=== PATIENT | female | born 1945 | race Caucasian/White ===

== ENCOUNTER → 2018-05-12 09:37 | Outpatient (CLI) | payer MEDICARE, SELFPAY ==
[2016-10-30 08:32] VITALS: BMI 24.7
[2018-05-12 10:24] LABS: Hematocrit 38.7 % (37-47); Hemoglobin 12.6 g/dl (12.0-15.0); Mean Corp Hgb Conc 32.6 g/gl (32-36); Mean Corpuscular Hgb 28.6 pg (27.0-32.0); Mean Corpuscular Volume 87.8 fL (81-99); Mean Platelet Vol. 9.6 fl (6.2-12.0); Platelet Count 228 K/mm3 (150-450); RBC Distribution Width CV 12.9 % (11.6-14.6); RBC Distribution Width SD 41.5 fl (35.1-43.9); Red Blood Count 4.41 M/mm3 (4.2-5.4); White Blood Count 4.9 K/mm3 (4.4-11.0)
[2018-05-12 10:25] LABS: Scan Indicated on CBC? Y/N NO
[2018-05-12 11:03] LABS: ALB/GLOB Ratio 1.1 RATIO (0.9-2.4); AST(SGOT) 22 U/L (15-37); Alanine Aminotransfer ALT/SGPT 19 U/L (13-56); Albumin, Serum 3.7 g/dL (3.2-5.0); Alkaline Phosphatase 64 U/L (45-117); Anion Gap 7 (5-15); BUN 20 mg/dL (7-18); BUN/Creat Ratio 29.1 RATIO (10-20); Calcium,Total 9.1 mg/dL (8.5-10.1); Chloride 101 mmol/L (98-107); Cholesterol 155 mg/dL (200); Creatinine, Serum 0.69 mg/dL (0.55-1.02); EST Glomerular Filtration Rate 89 mL/min (>60); Est Glom Filt Rate - Afr Amer 108 mL/min (>60); Globulin 3.5 g/dL (2.2-4.2); Glucose 90 mg/dL (74-106); High Density Lipoprotein 68 mg/dL; Potassium 3.7 mmol/L (3.5-5.1); Protein, Total 7.2 g/dL (6.4-8.2); Sodium Level 142 mmol/L (136-145); Thyroid Stim Hormone (TSH) 2.06 uIU/mL (0.358-3.74); Triglycerides 110 mg/dL; Very Low Density Lipoprotein 22 mg/dL (5-40)
[2018-05-12 12:22] LABS: Vitamin D,25 Hydroxy 45.6 ng/mL (29.95-100.01)
== END ==
PROVIDERS: Family Provider Internal Medicine; PCP Internal Medicine; Referring Provider Internal Medicine; Visit Provider Internal Medicine
DX: I10 Essential (primary) hypertension (principal); E78.00 Pure hypercholesterolemia, unspecified; E55.9 Vitamin D deficiency, unspecified; M15.9 Polyosteoarthritis, unspecified; K21.9 Gastro-esophageal reflux disease without esophagitis
CPT/HCPCS: 36415; 80053; 80061; 82306; 84443; 85027

== ENCOUNTER → 2019-05-14 | Outpatient (CLI) | payer MEDICARE, SELFPAY ==
[2016-10-30 08:32] VITALS: BMI 24.7
[2019-05-14 10:21] LABS: Hematocrit 39.2 % (37-47); Hemoglobin 12.8 g/dL (12.0-15.0); Mean Corp Hgb Conc 32.7 g/dL (32-36); Mean Corpuscular Hgb 27.9 pg (27.0-32.0); Mean Corpuscular Volume 85.6 fL (81-99); Mean Platelet Vol. 9.9 fl (6.2-12.0); Platelet Count 230 K/mm3 (150-450); RBC Distribution Width CV 12.7 % (11.6-14.6); RBC Distribution Width SD 39.3 fl (35.1-43.9); Red Blood Count 4.58 M/mm3 (4.2-5.4); White Blood Count 6.1 K/mm3 (4.4-11.0)
[2019-05-14 10:47] LABS: Vitamin D,25 Hydroxy 50.8 ng/mL
[2019-05-14 11:01] LABS: ALB/GLOB Ratio 1.1 RATIO (0.9-2.4); AST(SGOT) 26 U/L (15-37); Alanine Aminotransfer ALT/SGPT 22 U/L (13-56); Albumin, Serum 3.7 g/dL (3.2-5.0); Alkaline Phosphatase 65 U/L (45-117); Anion Gap 4 (5-15); BUN 24 mg/dL (7-18); BUN/Creat Ratio 34.7 RATIO (10-20); Calcium,Total 9.1 mg/dL (8.5-10.1); Chloride 104 mmol/L (98-107); Cholesterol 166 mg/dL (200); Creatinine, Serum 0.69 mg/dL (0.55-1.02); EST Glomerular Filtration Rate 88 mL/min (>60); Est Glom Filt Rate - Afr Amer 107 mL/min (>60); Globulin 3.3 g/dL (2.2-4.2); Glucose 89 mg/dL (74-106); High Density Lipoprotein 65 mg/dL; Potassium 3.4 mmol/L (3.5-5.1); Sodium Level 141 mmol/L (136-145); Thyroid Stim Hormone (TSH) 1.75 uIU/mL (0.358-3.74); Triglycerides 126 mg/dL; Very Low Density Lipoprotein 25 mg/dL (5-40)
== END | disposition home or self-care (01) ==
PROVIDERS: PCP Internal Medicine; Referring Provider Internal Medicine; Visit Provider Internal Medicine
DX: Z00.00 Encounter for general adult medical examination without abnormal findings (principal); I10 Essential (primary) hypertension; E78.00 Pure hypercholesterolemia, unspecified; F32.9 Major depressive disorder, single episode, unspecified; M15.9 Polyosteoarthritis, unspecified; K21.9 Gastro-esophageal reflux disease without esophagitis; E55.9 Vitamin D deficiency, unspecified; E78.5 Hyperlipidemia, unspecified
CPT/HCPCS: 36415; 80053; 80061; 82306; 84443; 85027

== ENCOUNTER 2019-12-05 20:01 | Emergency (ER) | payer MEDICARE, SELFPAY ==
[2019-12-05 20:02] VITALS: BP 127/66; PULSE 58; RESP 15; TEMP 36.8; O2SAT 98; BMI 23.6
--- NOTE | 2019-12-05 20:35 | RAD_ITS ---
STUDY: X-RAY - LEFT ANKLE REASON FOR EXAM: Female, 74 years old. Rolled ankle today, pain in heel and lateral swelling. Pain after trauma TECHNIQUE: 3 view(s) of the ankle. COMPARISON: None. FINDINGS: Normal visualized distal tibia and fibula. Normal medial and lateral malleoli. Normal tibiotalar articulation and ankle mortise. Normal visualized talus and calcaneus. Mineralization is diffusely decreased. The visualized subtalar, talonavicular, calcaneocuboid and tarsal articulations are normal. There is lateral soft tissue swelling. RAD/Ankle min 3 Views IMPRESSION: No osseous trauma. There is lateral soft tissue swelling. Electronically Signed: Olayinka York, at 21:10 EDT Tel , Service support ,
--- NOTE | 2019-12-05 21:26 | ED.VIS.GEN ---
History of Present Illness Chief Complaint: Lower Extremity Injury Informant: Patient Onset: Today Current Severity: Mild Maximum Severity: Moderate Narrative: Patient present secondary to left ankle injury. She states she went to stand up from a seated position and her foot had fallen asleep. She rolled her left ankle. She has been able to weight-bear. She denies any other injury. - Past Medical History (1) GERD (gastroesophageal reflux disease) Status: Chronic (2) HLD (hyperlipidemia) Status: Chronic (3) HTN (hypertension) Status: Chronic Past Medical History - Allergies and Home Meds Allergies/Adverse Reactions: Allergies No Known Allergies Allergy (Verified 12/05/19 20:02) Primary Care Physician: Saima Hernandez MD [Primary Care Provider] - Prior records reviewed: Yes Surgical History: hysterectomy - For endometriosis She still has both ovaries to her knowledge. She also had an incidental appendectomy at the time of her hysterectomy. Smoking Status: Never smoker - Family History Maternal Family History: Reports: - - Her father at the age of 91 with old age. Paternal Family History: Reports: - - Her father in his 90s of complications from esophageal cancer. Sibling Family History: Reports: Diabetes, High Cholesterol, Hypertension, - Review of Systems General: Denies: Chills, Fever Eyes: Denies: Visual changes - bilaterally ENT: Denies: Bilateral ear pain Cardiovascular: Denies: Chest pain Respiratory: Denies: Dyspnea Gastrointestinal: Denies: Abdominal pain, Nausea, Vomiting, Diarrhea Musculoskeletal: Reports: Swelling, Extremity Pain Skin: Denies: Rash Neurological: Denies: Headache Hematologic: Denies: Easy bruising, Easy bleeding Allergy: Denies: Uticaria Physical Exam Vital Signs/Narrative: Vital Signs Temp Pulse Resp BP Pulse Ox 12/05/19 20:02 98.3 F 58 L 15 127/66 H 98 Inital Vital Signs reviewed: Yes General: Well nourished, Well developed Head: Normocephalic ENT: Moist mucous membranes Neck: Supple Cardiovascular: Regular rate, Regular rhythm Respiratory: No distress, CTA bilaterally Abdomen: Soft, Nontender Extremities: - - Edema to the lateral malleolus of the left ankle. Mild tenderness. No tenderness of the foot itself. No tenderness of the proximal fibula, knee, or hip. Neurological: Alert, Oriented x3 Psychological: Normal affect Diagnostic/Tx/Re-eval Impressions Ankle X-Ray 12/05/19 20:35 IMPRESSION: No osseous trauma. There is lateral soft tissue swelling. Electronically Signed: Olayinka York, at 21:10 EDT Tel , Service support , 12/05/19 20:35 Ankle min 3 Views [RAD] Stat - Medical Decision Making X-rays reveal no evidence of acute bony injury. She be placed in an air stirrup splint. She was offered crutches but believes she does not need these. She will follow-up with PCP as needed. ED Disposition - Plan for ED Patient: Disposition: Home or Assisted Living Diagnosis: Left ankle sprain Instructions: ED Sprain Ankle W X Ray Referrals: Saima Hernandez MD [Primary Care Provider] - As Needed
== END 2019-12-05 21:48 | disposition home or self-care (01) ==
PROVIDERS: Emergency Provider Emergency Medicine; PCP Internal Medicine
DX: S93.402A Sprain of unspecified ligament of left ankle, initial encounter (principal); K21.9 Gastro-esophageal reflux disease without esophagitis; E78.5 Hyperlipidemia, unspecified; I10 Essential (primary) hypertension; Z79.899 Other long term (current) drug therapy; X50.1XXA Overexertion from prolonged static or awkward postures, initial encounter; Y93.89 Activity, other specified; Y92.009 Unspecified place in unspecified non-institutional (private) residence as the place of occurrence of the external cause; Y99.8 Other external cause status
CPT/HCPCS: 73610; 99283

== ENCOUNTER → 2020-05-02 09:00 | Outpatient (CLI) | payer MEDICARE, SELFPAY ==
[2020-05-02 09:27] LABS: Hemoglobin 12.7 g/dL (12.0-15.0); Mean Corp Hgb Conc 32.6 g/dL (32-36); Mean Corpuscular Hgb 28.3 pg (27.0-32.0); Mean Corpuscular Volume 86.9 fL (81-99); Platelet Count 236 K/mm3 (150-450); RBC Distribution Width CV 12.6 % (11.6-14.6); RBC Distribution Width SD 40.1 fl (35.1-43.9); Red Blood Count 4.49 M/mm3 (4.2-5.4); White Blood Count 5.6 K/mm3 (4.4-11.0)
[2020-05-02 09:58] LABS: Vitamin D,25 Hydroxy 47.8 ng/mL
[2020-05-02 10:11] LABS: ALB/GLOB Ratio 1.1 RATIO (0.9-2.4); AST(SGOT) 23 U/L (15-37); Alanine Aminotransfer ALT/SGPT 19 U/L (13-56); Albumin, Serum 3.5 g/dL (3.2-5.0); Alkaline Phosphatase 67 U/L (45-117); Anion Gap 3 (5-15); BUN 22 mg/dL (7-18); Chloride 103 mmol/L (98-107); Cholesterol 166 mg/dL (200); Creatinine, Serum 0.81 mg/dL (0.55-1.02); EST Glomerular Filtration Rate 73 mL/min (>60); Est Glom Filt Rate - Afr Amer 88 mL/min (>60); Globulin 3.3 g/dL (2.2-4.2); Glucose 93 mg/dL (74-106); High Density Lipoprotein 74 mg/dL; Potassium 3.8 mmol/L (3.5-5.1); Protein, Total 6.8 g/dL (6.4-8.2); Sodium Level 140 mmol/L (136-145); Thyroid Stim Hormone (TSH) 2.06 uIU/mL (0.358-3.74); Triglycerides 105 mg/dL; Very Low Density Lipoprotein 21 mg/dL (5-40)
== END ==
PROVIDERS: PCP Internal Medicine; Referring Provider Internal Medicine; Visit Provider Internal Medicine
DX: Z00.00 Encounter for general adult medical examination without abnormal findings (principal); I10 Essential (primary) hypertension; E78.00 Pure hypercholesterolemia, unspecified; M15.9 Polyosteoarthritis, unspecified; K21.9 Gastro-esophageal reflux disease without esophagitis; E55.9 Vitamin D deficiency, unspecified; E78.5 Hyperlipidemia, unspecified
CPT/HCPCS: 36415; 80053; 80061; 82306; 84443; 85027

== ENCOUNTER 2020-12-22 11:00 | Emergency (ER) | payer MEDICARE, SELFPAY ==
[2020-12-22 11:01] VITALS: BP 155/82; PULSE 69; RESP 16; TEMP 35.9; O2SAT 97; BMI 24.3
--- NOTE | 2020-12-22 11:50 | RAD_ITS ---
STUDY: X-RAY - UNILATERAL RIBS ( RIGHT ) WITH CHEST REASON FOR EXAM: Female, 75 years old. Trauma TECHNIQUE - RIBS: 4 view(s) of the ribs. TECHNIQUE - CHEST: Single PA view the chest. COMPARISON: None. FINDINGS: Cardiac silhouette unremarkable. Pulmonary vascularity unremarkable. Aorta calcified. No focal patchy airspace opacities. No pleural effusions. COPD. Atelectasis/scarring. Upper abdomen unremarkable. Acute minimally displaced right seventh rib fracture. No pneumothorax. RAD/Ribs Uni Min 3V w/PA Chest IMPRESSION: Acute minimally displaced right seventh rib fracture No acute cardiopulmonary findings COPD with atelectasis/scarring Electronically Signed: Issac Guaman DO at 12:04 EDT Tel , Service support ,
--- NOTE | 2020-12-22 12:45 | EX.ED.GENINJ ---
HPI History of Present Illness Chief Complaint: Other, Pain/Inj Informant: patient Onset/Context/Timing Onset: Days (2 ago) Mechanism/Context: Fall Quality of Pain: Sharp Location: Right chest Worsened by: Movement Relieved by: Rest Associated Symptoms Associated Symptoms: Negative for Parasthesias, Weakness, Inability to ambulate and Loss of consciousness Narrative Narrative: Patient presents with injury to her right ribs that occurred 2 days ago. Patient states she fell against a metal railing. Patient states she was going up some steps when she slipped. Patient denies any head injury or loss of consciousness. Patient states her pain is sharp. Patient states her pain is worse with any movement. Patient states her pain is better with rest. Patient denies any paresthesias or weakness. Patient denies any shortness of breath. PFSH PFSH Home Medications amlodipine 10 mg PO DAILY 10/30/16 [History Last Taken Unknown] hydrochlorothiazide 50 mg PO DAILY 10/30/16 [History Last Taken Unknown] lisinopril 40 mg PO DAILY 10/30/16 [History Last Taken Unknown] meloxicam 15 mg PO DAILY 10/30/16 [History Last Taken Unknown] paroxetine HCl 20 mg PO DAILY 10/30/16 [History Last Taken Unknown] simvastatin 20 mg PO DAILY 10/30/16 [History Last Taken Unknown] trazodone 100 mg PO QHS 10/30/16 [History Last Taken Unknown] Carvedilol 12/05/19 [History Last Taken Unknown] Vitamin E (Dl,Tocopheryl Acet) [Vitamin E] 400 unit PO DAILY 12/05/19 [History Last Taken Unknown] ascorbic acid (vitamin C) 500 mg PO DAILY@0800 12/05/19 [History Last Taken Unknown] beta carotene 10,000 unit PO DAILY 12/05/19 [History Last Taken Unknown] cholecalciferol (vitamin D3) 50 mcg PO DAILY 12/05/19 [History Last Taken Unknown] omeprazole 40 mg PO DAILY 12/05/19 [History Last Taken Unknown] hydrocodone-acetaminophen 1 tab PO Q6H PRN PRN 3 Days #10 tablet 12/22/20 [Rx Last Taken Unknown] Allergy/AdvReac Type Severity Reaction Status Date / Time No Known Allergies Allergy Verified 12/22/20 11:04 Social History Smoking Status: Never smoker ROS ROS ED Constitutional Constitutional ED: Denies chills or fever(s) Eyes Eyes: Denies blurry vision or change in vision ENT ENT ED: Denies rhinorrhea or sore throat Cardiovascular Cardiovascular: Denies chest pain or palpitations Respiratory/Chest Respiratory/Chest: Denies cough or dyspnea Gastrointestinal Gastrointestinal: Denies nausea or vomiting Genitourinary Genitourinary ED: Denies dysuria or hematuria Musculoskeletal Musculoskeletal: Denies back pain or neck pain Integumentary Denies abscess or rash Neurologic Neurologic: Denies headache(s) or weakness Allergic/Immunologic Allergic/Immunologic ED: Denies mouth swelling or urticaria EXAM Physical Exam Const Vital Signs: 12/22/20 11:01 12/22/20 12:00 Temperature 96.6 F L Temperature Source Temporal Pulse Rate 69 Respiratory Rate 16 Respiratory Effort Normal Non-Labored Respiratory Pattern Normal Blood Pressure 155/82 H Blood Pressure Mean 106 Pulse Ox 97 Oxygen Delivery Method Room Air Positive well nourished and well developed General Appearance ED: well developed HEENT atraumatic Neck full ROM General: Negative for tenderness Chest Wall Chest Narrative: There is tenderness over the posterior lateral aspect of the right lower ribs. There is no edema or ecchymosis. There is no bony crepitance or step-off. Resp normal respiratory effort and clear to auscultation bilaterally Cardio regular rhythm Rate: regular rate GI non-tender Palpation: soft Neuro oriented x3, CN's II-XII intact bilaterally, moves all extremities, no focal motor deficits and no sensory deficits noted Sensorium / Orientation: alert MDM MDM MDM Narrative Medical decision making narrative: X-rays of the right ribs were obtained. There are 5 views. On my interpretation, there is a nondisplaced fracture of the seventh rib. There is no pneumothorax. There is no acute cardiopulmonary process. Radiologist also interpreted the x-ray and agrees. Patient was advised of her findings. Patient was instructed to take 10-15 deep breaths every hour while awake to prevent atelectasis and pneumonia. Patient was given a prescription for [place]. Patient was instructed to follow-up with her primary care physician in 5 to 7 days. Patient understood and was agreeable with the plan. All questions were answered. Radiography Diagnostic Testing: Clinical Impression(s) from Imaging Studies Ribs w/Chest X-Ray 12/22/20 11:50 IMPRESSION: Acute minimally displaced right seventh rib fracture No acute cardiopulmonary findings COPD with atelectasis/scarring Electronically Signed: Issac DO Rowena at 12:04 EDT Tel , Service support , Discharge Plan Triage Chief Complaint: Other, Pain/Inj ED Provider: Issac Faulkner Dx/Rx/DC Orders Clinical Impression: Right rib fracture Instructions: ED Rib Fracture Prescriptions: New hydrocodone-acetaminophen [hydrocodone-acetaminophen] 1 TABLET tablet 1 tab PO Q6H PRN PRN (Reason: Pain) 3 Days Qty: 10 RF: 0 No Action trazodone 50 MG tablet 100 mg PO QHS RF: 0 meloxicam 15 MG tablet 15 mg PO DAILY RF: 0 lisinopril 20 MG tablet 40 mg PO DAILY RF: 0 amlodipine 10 MG tablet 10 mg PO DAILY RF: 0 paroxetine HCl 20 MG tablet 20 mg PO DAILY RF: 0 simvastatin 20 MG tablet 20 mg PO DAILY RF: 0 hydrochlorothiazide 25 MG tablet 50 mg PO DAILY RF: 0 omeprazole 40 MG capsule,delayed release(DR/EC) 40 mg PO DAILY RF: 0 ascorbic acid (vitamin C) 500 MG tablet 500 mg PO DAILY@0800 RF: 0 beta carotene 10,000 UNIT capsule 10,000 unit PO DAILY RF: 0 cholecalciferol (vitamin D3) 50 MCG capsule 50 mcg PO DAILY RF: 0 Carvedilol RF: 0 Vitamin E (Dl,Tocopheryl Acet) [Vitamin E] 400 UNIT capsule 400 unit PO DAILY RF: 0 Primary Care Provider: Saima Hernandez Referrals: Saima Hernandez MD [Primary Care Provider] -
[2020-12-22 14:24] VITALS: BP 139/84; PULSE 76; RESP 15; O2SAT 97
== END 2020-12-22 14:25 | disposition home or self-care (01) ==
LOC: ED 12:08
PROVIDERS: Emergency Provider Emergency Medicine; PCP Internal Medicine
DX: S22.31XA Fracture of one rib, right side, initial encounter for closed fracture (principal); W01.198A Fall on same level from slipping, tripping and stumbling with subsequent striking against other object, initial encounter; Y93.01 Activity, walking, marching and hiking; Y92.89 Other specified places as the place of occurrence of the external cause; Y99.8 Other external cause status
CPT/HCPCS: 71101; 99282

== ENCOUNTER 2021-05-15 08:54 | Outpatient (CLI) | payer MEDICARE, SELFPAY ==
[2021-05-15 09:52] LABS: Hematocrit 38.1 % (37-47); Mean Corp Hgb Conc 34.1 g/dL (32-36); Mean Corpuscular Hgb 29.5 pg (27.0-32.0); Mean Corpuscular Volume 86.4 fL (81-99); Mean Platelet Vol. 9.9 fl (6.2-12.0); Platelet Count 250 K/mm3 (150-450); RBC Distribution Width CV 12.6 % (11.6-14.6); RBC Distribution Width SD 39.9 fl (35.1-43.9); Red Blood Count 4.41 M/mm3 (4.2-5.4); White Blood Count 6.8 K/mm3 (4.4-11.0)
[2021-05-15 10:26] LABS: Vitamin D,25 Hydroxy 65.8 ng/mL
[2021-05-15 10:32] LABS: ALB/GLOB Ratio 1.1 RATIO (0.9-2.4); AST(SGOT) 19 U/L (15-37); Alanine Aminotransfer ALT/SGPT 16 U/L (13-56); Albumin, Serum 3.8 g/dL (3.2-5.0); Alkaline Phosphatase 70 U/L (45-117); Anion Gap 2 (5-15); BUN 23 mg/dL (7-18); BUN/Creat Ratio 29.9 RATIO (10-20); Calcium,Total 8.9 mg/dL (8.5-10.1); Chloride 104 mmol/L (98-107); Cholesterol 157 mg/dL (200); Creatinine, Serum 0.77 mg/dL (0.55-1.02); EST Glomerular Filtration Rate 78 mL/min (>60); Est Glom Filt Rate - Afr Amer 94 mL/min (>60); Globulin 3.6 g/dL (2.2-4.2); Glucose 93 mg/dL (74-106); High Density Lipoprotein 64 mg/dL; Potassium 3.8 mmol/L (3.5-5.1); Protein, Total 7.4 g/dL (6.4-8.2); Sodium Level 140 mmol/L (136-145); Triglycerides 133 mg/dL; Very Low Density Lipoprotein 27 mg/dL (5-40)
== END 2021-05-15 23:59 | disposition home or self-care (01) ==
PROVIDERS: PCP Internal Medicine; Referring Provider Internal Medicine; Visit Provider Internal Medicine
DX: Z00.00 Encounter for general adult medical examination without abnormal findings (principal); I10 Essential (primary) hypertension; E78.00 Pure hypercholesterolemia, unspecified; M85.80 Other specified disorders of bone density and structure, unspecified site; M15.9 Polyosteoarthritis, unspecified; K21.9 Gastro-esophageal reflux disease without esophagitis; E78.5 Hyperlipidemia, unspecified
CPT/HCPCS: 36415; 80053; 80061; 82306; 84443; 85027

== ENCOUNTER 2022-04-17 18:23 | Emergency (ER) | payer MEDICARE, SELFPAY ==
[2022-04-17 18:24] VITALS: BP 147/99; PULSE 66; RESP 18; TEMP 36.1; O2SAT 92; BMI 24.6
[2022-04-17 18:45] VITALS: O2SAT 92
--- NOTE | 2022-04-17 19:06 | EX.ED.DYSGE1 ---
HPI History of Present Illness Chief Complaint: Fall Informant: patient and spouse/S.O. Narrative Narrative: Patient slipped on the mud at home. She fell backwards. Her head hit the metal siding of a garage. No loss of consciousness. She is not on blood thinners. She has pain in the back of the head and midportion of the neck. She does not have numbness tingling or weakness. No pain lower down in the spine or back. She has been up walking. No trouble with motion of her arms or legs. No chest pain or trouble breathing. [facility] Medical History Hypertension Home Medications amlodipine 10 mg tablet 10 mg PO DAILY 10/30/16 [History Last Taken Unknown] hydrochlorothiazide 25 mg tablet 50 mg PO DAILY 10/30/16 [History Last Taken Unknown] lisinopril 20 mg tablet 40 mg PO DAILY 10/30/16 [History Last Taken Unknown] meloxicam 15 mg tablet 15 mg PO DAILY 10/30/16 [History Last Taken Unknown] paroxetine HCl 20 mg tablet 20 mg PO DAILY 10/30/16 [History Last Taken Unknown] simvastatin 20 mg tablet 20 mg PO DAILY 10/30/16 [History Last Taken Unknown] trazodone 50 mg tablet 100 mg PO QHS 10/30/16 [History Last Taken Unknown] Carvedilol 12/05/19 [History Last Taken Unknown] Vitamin E (Dl,Tocopheryl Acet) [Vitamin E] 400 unit PO DAILY 12/05/19 [History Last Taken Unknown] ascorbic acid (vitamin C) 500 mg tablet 500 mg PO DAILY@0800 12/05/19 [History Last Taken Unknown] beta carotene 10,000 unit capsule 10,000 unit PO DAILY 12/05/19 [History Last Taken Unknown] cholecalciferol (vitamin D3) 50 mcg (2,000 unit) capsule 50 mcg PO DAILY 12/05/19 [History Last Taken Unknown] omeprazole 40 mg capsule,delayed release 40 mg PO DAILY 12/05/19 [History Last Taken Unknown] hydrocodone-acetaminophen 5-325mg 5mg-325mg 1 tab PO Q6H PRN PRN Pain 3 days #10 TABLETS 12/22/20 [Rx Last Taken Unknown] hydrocodone-acetaminophen 5-325mg 5mg-325mg 1 tab PO Q6H PRN PRN Pain 3 days #10 TABLETS 04/17/22 [Rx Last Taken Unknown] Allergy/AdvReac Type Severity Reaction Status Date / Time No Known Allergies Allergy Verified 04/17/22 18:28 Surgical History H/O: hysterectomy Social History Smoking Status: Never smoker ROS ROS ED Constitutional Constitutional ED: Denies chills or fever(s) Eyes Eyes: Denies change in vision ENT ENT ED: Denies rhinorrhea or sore throat Cardiovascular Cardiovascular: Denies chest pain, palpitations or racing heartbeat Respiratory/Chest Respiratory/Chest: Denies cough or dyspnea Gastrointestinal Gastrointestinal: Denies nausea or vomiting Genitourinary Genitourinary ED: Denies hematuria Musculoskeletal Musculoskeletal: Reports neck pain; Denies back pain Integumentary Denies Abrasions or rash Neurologic Neurologic: Reports headache(s); Denies paresthesias Endocrine Endocrinology: Denies polydipsia or polyuria Hematologic/Lymphatic Hematologic/Lymphatic: Denies easy bleeding or easy bruising Allergic/Immunologic Allergic/Immunologic ED: Denies urticaria EXAM Physical Exam Narrative Exam Narrative: Patient is sitting comfortably in bed. She is awake alert and oriented. HEENT: I do not see any contusions or abrasions on her head or face. I do not see any in the back of the scalp. There is some tenderness on the occipital area though. Neck shows some midline and bilateral tenderness in the upper half of the spine. Lungs are clear bilaterally Heart is regular. I hear no murmur gallop or rub. Abdomen is soft and nontender Extremities show no tenderness of the clavicle scapula's arms hips pelvis or legs. Neuro: Patient is alert oriented appropriate and acting normally per . Skin: No sign of contusions or abrasions yet developed at this time. Const Vital Signs: 04/17/22 18:24 04/17/22 18:45 04/17/22 19:42 Temperature 97 F L Temperature Source Temporal Pulse Rate 66 Respiratory Rate 18 Respiratory Effort Normal Blood Pressure 147/99 H Blood Pressure Mean 115 Pulse Ox 92 92 82 Oxygen Delivery Method Room Air Room Air Room Air Oxygen Flow Rate (L/min) 04/17/22 19:42 04/17/22 19:48 04/17/22 21:00 Temperature Temperature Source Pulse Rate 70 74 Respiratory Rate 17 17 Respiratory Effort Blood Pressure 155/75 H 132/97 H Blood Pressure Mean 101 108 Pulse Ox 95 96 94 Oxygen Delivery Method Nasal Cannula Nasal Cannula Nasal Cannula Oxygen Flow Rate (L/min) 3 3 3 MDM MDM MDM Narrative Medical decision making narrative: My independent interpretation of the CT of the head shows no acute process. This is consistent with radiology's reading. My independent interpretation of the cervical spine x-ray does show fracture on the right of C2. I was actually called by the tech to look at this film. Final reading by radiology also shows nondisplaced intra-articular fracture of the lateral mass of C2 on the right. My independent interpretation of the x-ray shows some slight increased markings but no definite pneumonia. The reading did show bibasilar infiltrates consistent with pneumonia. I discussed this with the patient and her . They both have had a cold recently but they are both getting better. She is not coughing now. She states she is not short of breath. Our nurse got a single O2 sat reading at 82% on room air but she has been above that all the other times. She actually walked to the bathroom and back and had no dyspnea or symptoms at all. I do not think this represents a true pneumonia. Both she and her feel that she is not short of breath and not having any pulmonary symptoms. I do not think we need to work this up further at this time for a single reading that was abnormal that has not been reproduced again. I did discuss the case with Dr. Armenta. We discussed the findings of her CT. She is okay for discharge and he will follow her in the office on Friday. He recommends cervical collar. We have our c-collar is but we do not have a more comfortable or padded Ward type for her. I explained that it is important that she keeps this on. She has used hydrocodone before for pain and I will write a few of these. We discussed increasing fluid and fiber to avoid constipation. All questions by her and her were answered. Radiography Diagnostic Testing: Clinical Impression(s) from Imaging Studies Brain CT 04/17/22 19:36 IMPRESSION: Normal unenhanced CT scan of the brain. Electronically Signed: Phillip Agustin MD at 20:59 EST , Cervical Spine CT 04/17/22 19:36 IMPRESSION: Nondisplaced intra-articular fracture lateral mass C2 on the right. Electronically Signed: Phillip Agustin MD at 21:08 EST Reading Location ID and State: [address] [place] [address] , Service support , ADDENDUM: 04/17/222117 IMPRESSION: Nondisplaced intra-articular fracture lateral mass C2 on the right. N.B. : The above Results were Read Back by Phillip Agustin MD to Guanaco Joseph MD, and understanding confirmed on 04/17/2022 21:11:16 (ET). Electronically Signed: Phillip Agustin MD at 21:08 EST Reading Location ID and State: [address] [place] [address] , Service support , Chest X-Ray 04/17/22 20:18 IMPRESSION: Bibasilar infiltrates consistent with pneumonia. Recommend short-term follow-up to complete resolution. Electronically Signed: Agustin Leary MD at 20:31 EST , Discharge Plan Triage Chief Complaint: Fall ED Provider: Guanaco Joseph Dx/Rx/DC Orders Clinical Impression: C2 cervical fracture, Fall from slipping Instructions: Fx Neck Spine Prescriptions: New hydrocodone-acetaminophen [hydrocodone-acetaminophen] 5-325 mg tablet 1 tab PO Q6H PRN PRN (Reason: Pain) 3 Days Qty: 10 0RF No Action trazodone 50 MG tablet 100 mg PO QHS Label Comments: meloxicam 15 MG tablet 15 mg PO DAILY Label Comments: lisinopril 20 MG tablet 40 mg PO DAILY Label Comments: amlodipine 10 MG tablet 10 mg PO DAILY Label Comments: paroxetine HCl 20 MG tablet 20 mg PO DAILY Label Comments: simvastatin 20 MG tablet 20 mg PO DAILY Label Comments: hydrochlorothiazide 25 MG tablet 50 mg PO DAILY Label Comments: omeprazole 40 MG capsule,delayed release(DR/EC) 40 mg PO DAILY ascorbic acid (vitamin C) 500 MG tablet 500 mg PO DAILY@0800 beta carotene 10,000 UNIT capsule 10,000 unit PO DAILY cholecalciferol (vitamin D3) 50 MCG capsule 50 mcg PO DAILY Carvedilol Vitamin E (Dl,Tocopheryl Acet) [Vitamin E] 400 UNIT capsule 400 unit PO DAILY hydrocodone-acetaminophen [hydrocodone-acetaminophen] 1 TABLET tablet 1 tab PO Q6H PRN PRN (Reason: Pain) 3 Days Qty: 10 0RF Primary Care Provider: Saima Hernandez Referrals: Saima Hernandez MD [Primary Care Provider] - Kristopher Armenta DO [Med Staff - Active Staff] - (Call tomorrow for an appointment on Friday. I did discuss this with Dr. Armenta and he is expecting to see you this Friday.) Disposition Disposition: Home, Self Care
--- NOTE | 2022-04-17 19:36 | CT_ITS ---
STUDY: CT BRAIN WITHOUT CONTRAST REASON FOR EXAM: Female, 76 years old. Trauma RADIATION DOSAGE (If Supplied By Facility): CTDIvol = ( 44.99 ) mGy, DLP = ( 897.35 ) mGycm TECHNIQUE: Transaxial CT imaging of the brain was performed without administration of intravenous contrast material. Individualized dose optimization techniques were used for this CT. COMPARISON: No relevant priors. FINDINGS: Normal soft tissue structures. Normal calvarium. Normal size ventricles and extra-axial spaces for the patient''s age. Normal white matter tracts of the cerebral hemispheres. Normal basal ganglia and thalami. Normal brainstem. Normal cerebellum. There is no intracranial hemorrhage. There are no findings of an acute ischemic infarction. Normal visualized paranasal sinuses. CT/Brain/Head without Contrast IMPRESSION: Normal unenhanced CT scan of the brain. Electronically Signed: Phillip Agustin MD at 20:59 EST ,
--- NOTE | 2022-04-17 19:36 | CT_ITS ---
We are attempting to reach an attending provider to discuss findings. An addendum with communication details will be sent when the communication is complete. STUDY: CT CERVICAL SPINE WITHOUT CONTRAST REASON FOR EXAM: Female, 76 years old. Trauma RADIATION DOSAGE (If Supplied By Facility): CTDIvol = ( 14.60 ) mGy, DLP = ( 329.06 ) mGycm TECHNIQUE: High resolution transaxial imaging was performed without contrast material. Sagittal and coronal images were reconstructed. Individualized dose optimization techniques were used for this CT. COMPARISON: None FINDINGS: Normal craniovertebral junction. Normal anterior atlantoaxial articulation. Normal odontoid process. Normal cervical lordosis. Normal vertebral bodies and posterior osseous elements. C2-3: Normal endplates. Normal disc height and morphology. Normal central canal and intervertebral neuroforamina. Nondisplaced intra-articular fracture lateral mass C2 on the right. C3-4: Normal endplates. Normal disc height and morphology. Normal central canal and intervertebral neuroforamina. C4-5: Normal endplates. Normal disc height and morphology. Normal central canal and intervertebral neuroforamina. C5-6: Spondylitic endplates. Narrowed disc height and morphology. Normal central canal and narrowed left intervertebral neuroforamina. C6-7: Spondylitic endplates. Narrowed disc height and morphology. Normal central canal and intervertebral neuroforamina. C7-T1: Normal endplates. Normal disc height and morphology. Normal central canal and intervertebral neuroforamina. Normal visualized soft tissue structures. CT/Spine Cervical without Contras IMPRESSION: Nondisplaced intra-articular fracture lateral mass C2 on the right. Electronically Signed: Phillip Agustin MD at 21:08 EST ,
[2022-04-17 19:42] VITALS: O2SAT 82; O2SAT 95
[2022-04-17 19:48] VITALS: BP 155/75; PULSE 70; RESP 17; O2SAT 96
--- NOTE | 2022-04-17 20:18 | RAD_ITS ---
INDICATION: Shortness of Breath EXAMINATION/TECHNIQUE: X-RAY - portable upright AP chest x-ray COMPARISON: 12/22/2020 FINDINGS: LINES/DEVICES: None. LUNGS: Patchy bibasilar airspace opacities, left side greater than right. No consolidation or pleural effusions. MEDIASTINUM AND CARDIOVASCULAR STRUCTURES: Cardiac silhouette mildly enlarged. BONES AND SOFT TISSUES: No acute changes. RAD/Chest 1 View (Portable) IMPRESSION: Bibasilar infiltrates consistent with pneumonia. Recommend short-term follow-up to complete resolution. Electronically Signed: Agustin Leary MD at 20:31 EST ,
[2022-04-17 21:00] VITALS: BP 132/97; PULSE 74; RESP 17; O2SAT 94
[2022-04-17 22:03] VITALS: PULSE 84; RESP 18; O2SAT 92
== END 2022-04-17 22:03 | disposition home or self-care (01) ==
PROVIDERS: Emergency Provider Emergency Medicine; PCP Internal Medicine; Visit Provider Emergency Medicine
DX: S12.100A Unspecified displaced fracture of second cervical vertebra, initial encounter for closed fracture (principal); I10 Essential (primary) hypertension; R51.9 Headache, unspecified; W01.0XXA Fall on same level from slipping, tripping and stumbling without subsequent striking against object, initial encounter
CPT/HCPCS: 70450; 71045; 72125; 99282

== ENCOUNTER → 2022-05-29 | Outpatient (CLI) | payer MEDICARE, SELFPAY ==
[2022-05-29 10:33] LABS: Hemoglobin 12.7 g/dL (12.0-15.0); Mean Corp Hgb Conc 31.8 g/dL (32-36); Mean Corpuscular Hgb 27.9 pg (27.0-32.0); Mean Corpuscular Volume 87.9 fL (81-99); Mean Platelet Vol. 9.8 fl (6.2-12.0); Platelet Count 253 K/mm3 (150-450); RBC Distribution Width CV 13.1 % (11.6-14.6); RBC Distribution Width SD 42.3 fl (35.1-43.9); Red Blood Count 4.55 M/mm3 (4.2-5.4); White Blood Count 5.7 K/mm3 (4.4-11.0)
[2022-05-29 10:59] LABS: Vitamin D,25 Hydroxy 67.8 ng/mL
[2022-05-29 11:05] LABS: AST(SGOT) 21 U/L (15-37); Alanine Aminotransfer ALT/SGPT 18 U/L (13-56); Albumin, Serum 3.7 g/dL (3.2-5.0); Alkaline Phosphatase 66 U/L (45-117); Anion Gap 5 (5-15); BUN 22 mg/dL (7-18); BUN/Creat Ratio 25.9 RATIO (10-20); Calcium,Total 9.3 mg/dL (8.5-10.1); Chloride 102 mmol/L (98-107); Cholesterol 180 mg/dL (200); Creatinine, Serum 0.85 mg/dL (0.55-1.02); EST Glomerular Filtration Rate 69 mL/min (>60); Est Glom Filt Rate - Afr Amer 83 mL/min (>60); Globulin 3.7 g/dL (2.2-4.2); Glucose 91 mg/dL (74-106); High Density Lipoprotein 67 mg/dL; Potassium 3.6 mmol/L (3.5-5.1); Protein, Total 7.4 g/dL (6.4-8.2); Sodium Level 140 mmol/L (136-145); Thyroid Stim Hormone (TSH) 1.65 uIU/mL (0.358-3.74); Triglycerides 128 mg/dL; Very Low Density Lipoprotein 26 mg/dL (5-40)
== END | disposition home or self-care (01) ==
LOC: LAB 09:09
PROVIDERS: PCP Internal Medicine; Referring Provider Internal Medicine; Visit Provider Internal Medicine
DX: Z00.00 Encounter for general adult medical examination without abnormal findings (principal); F32.1 Major depressive disorder, single episode, moderate; I10 Essential (primary) hypertension; E78.00 Pure hypercholesterolemia, unspecified; M15.9 Polyosteoarthritis, unspecified; K21.9 Gastro-esophageal reflux disease without esophagitis; E55.9 Vitamin D deficiency, unspecified; E78.5 Hyperlipidemia, unspecified
CPT/HCPCS: 36415; 80053; 80061; 82306; 84443; 85027

== ENCOUNTER → 2023-04-18 | Outpatient (CLI) | payer MEDICARE, SELFPAY ==
--- NOTE | 2023-04-18 12:15 | EKG12_ITS ---
Test Reason : SURGERY Blood Pressure : / mmHG Vent. Rate : 054 BPM Atrial Rate : 054 BPM P-R Int : 148 ms QRS Dur : 090 ms QT Int : 436 ms P-R-T Axes : 036 -14 053 degrees QTc Int : 413 ms Sinus bradycardia with Premature atrial complexes Otherwise normal ECG No previous ECGs available Confirmed by DUNCAN REBOLLEDO, YOAV ([id number]), school photograph editor ALONSO HARVEY ([id number]) on 04/18/2023 1:04:17 PM Referred By: Cy Rodriguez Confirmed By:YOAV SONG MD
--- NOTE | 2023-04-18 12:19 | CT_ITS ---
STUDY: CT LEFT KNEE WITHOUT CONTRAST REASON FOR EXAM: Female, 77 years old. PRE OP -- RADIATION DOSAGE (If Supplied By Facility): CTDIvol = ( 18.76 ) mGy, DLP = ( 1408.72 ) mGycm TECHNIQUE: Transaxial CT imaging of the knee was performed with localizing images at the hip and ankle utilizing joint replacement protocol. Coronal and sagittal images were reformatted. Individualized dose optimization techniques were used for this CT. COMPARISON: None. FINDINGS: There is demineralization of the osseous structures. There is no acute fracture. There is joint space narrowing and spurring of the medial, lateral, and patellofemoral compartments. There is moderate joint effusion. Soft tissues are intact. CT/Extremity Lower without Contra IMPRESSION: Degenerative change. Electronically Signed: Martin Rivera MD at 14:21 EST ,
== END | disposition home or self-care (01) ==
PROVIDERS: PCP Internal Medicine; Referring Provider Specialist; Visit Provider Specialist
DX: Z01.818 Encounter for other preprocedural examination (principal); M21.062 Valgus deformity, not elsewhere classified, left knee; M17.0 Bilateral primary osteoarthritis of knee; Z01.810 Encounter for preprocedural cardiovascular examination
CPT/HCPCS: 73700; 93005

== ENCOUNTER → 2023-05-01 | Outpatient (CLI) | payer MEDICARE, SELFPAY ==
[2023-05-01 12:26] LABS: Absolute Lymphocyte Count 1.43 X10^3/uL (0.83-4.51); Absolute Neutrophil Count 4.6 X10^3/uL (2.0-7.7); Basophil# 0.03 X10^3/uL; Basophil% 0.4 % (0-1); Eosinophil# 0.26 X10^3/uL; Eosinophils% 3.8 % (0-5); Hemoglobin 12.3 g/dL (12.0-15.0); Lymphocyte # 1.43 X10^3/ul (0.83-4.51); Lymphocyte % 20.8 % (19-41); Mean Corp Hgb Conc 32.4 g/dL (32-36); Mean Corpuscular Hgb 28.8 pg (27.0-32.0); Mean Platelet Vol. 9.7 fl (6.2-12.0); Monocyte# 0.54 X10^3/uL; Monocyte% 7.8 % (0-10); NRBC Flagged by Analyzer 0 % (0-5); Neutrophil % 66.9 % (47-70); Platelet Count 247 K/mm3 (150-450); RBC Distribution Width SD 42.5 fl (35.1-43.9); Red Blood Count 4.27 M/mm3 (4.2-5.4); White Blood Count 6.9 K/mm3 (4.4-11.0)
--- OUTSIDE RECORDS SUMMARY | 2023-05-01 12:29 | XMS RPT_ITS | CCD ---
Author Name Unknown Address [address] [place] [address] Organization [facility] Care Team Providers Care Corporate Trust Officer Name Role Phone Kelly, Saima Unavailable Unavailable Stutsman, Saima M Unavailable Unavailable Stutsman, Saima Unavailable Unavailable Aleida Thakkar Unavailable Unavailable Saima Hernandez MD Unavailable Unavailable Stutsman, Saima M Unavailable Unavailable Kelly, Saima M Unavailable Unavailable Unavailable Unavailable Unavailable Saima Hernandez MD Primary Care Provider Saima Hernandez MD Primary Care Provider Saima Hernandez MD Unavailable BRONSON MCCARTY Referring Unavailable KELLY, SAIMA M Primary Care Unavailable KELLY, SAIMA M Primary Care Unavailable BRONSON MCCARTY Attending Unavailable KELLY, SAIMA M Primary Care Unavailable BRONSON MCCARTY Attending Unavailable BRONSON MCCARTY Referring Unavailable KELLY, SAIMA M Primary Care Unavailable Saima Hernandez MD Unavailable Kelly, Dr. Saima Aleman Attending Unava ilable Kelly, Dr. Saima Aleman Primary Care Unava ilable Kelly, Dr. Saima Aleman Attending Unava ilable Kelly, Dr. Saima Aleman Primary Care Unava ilable Stutsman, Dr. Saima Aleman Attending Unava ilable Kelly, Dr. Saima Aleman Referring Unava ilable Stutsman, Dr. Saima Aleman Primary Care Unava ilable Stutsman, Dr. Saima Aleman Attending Unava ileddie Hernandez, Dr. Saima Aleman Referring Unava ileddie Hernandez, Dr. Saima Aleman Primary Care Aprilny PEPE Judge Attending Unavailable SUMMERGRICELDARITIKASuhaBRONSON Referring Unavailable KELLY SAIMA Vern Primary Care Unavailable SAIMA HERNANDEZ Attending Unavailable SAIMA HERNANDEZ Primary Care Unavailable SAIMA HERNANDEZ M Attending Unavailable SAIMA HERNANDEZ M Primary Care Unavailable SAIMA HERNANDEZ M Attending Unavailable KELLY SAIMA M Primary Care Unavailable Medications Current Medications Medication Drug Class(es) Dates Sig (Normalized) Sig (Original) amLODIPine 10 mg oral tablet (20 sources) Dihydropyridine Calcium Channel Olimpia Start: 03-13-2011 End: 06-20-2022 take 1 tablet by mouth once daily amLODIPine (Norvasc) 10 mg tablet Indications: Primary hypertension Take 1 tablet (10 mg) by mouth once daily. 90 tablet 3 06/20/2022 Active Completed/Discontinued Medications Medication Drug Class(es) Dates Sig (Normalized) Sig (Original) acetaminophen 325 mg / oxyCODONE hydrochloride 5 mg oral tablet (1 source) Opioid Agonist Start: 08-19-2012 End: 04-25-2022 take 1 tablet by mouth every four hours as needed oxyCODONE-acetamino phen 5-325 mg tablet Take 1 tablet by mouth every 4 hours as needed. 20 tablet 0 08/19/2012 04/25/2022 Discontinued Problems Active Problems Problem Classification Problem Date Documented Da te Episodic/Chronic Cardiac dysrhythmias (20 sources) Fluttering heart; Translations: [Ventricular flutter] Onset: 07-02-2022 Resolved: 10-12-2019 07-02-2022 Chronic Cardiac dysrhythmias (8 sources) Fluttering heart; Translations: [Palpitations] Episodic Disorders of lipid metabolism (20 sources) Hypercholesterolem ia; Translations: [Hyperlipidemia] Onset: 06-19-2022 06-20-2022 Chronic Past or Other Problems Problem Classification Problem Date Documented Da te Episodic/Chronic Diabetes mellitus without complication (20 sources) Abnormal glucose level; Translations: [Other abnormal glucose] Resolved: 10-12-2019 Episodic E Codes: Fall (20 sources) Accidental fall ; Translations: [Fall from other slipping, tripping, or stumbling] Onset: 04-25-2022 Resolved: 10-24-2021 Episodic External cause codes: Fall (1 source) Accidental fall ; Translations: [Fall from other slipping, tripping, or stumbling] Heart valve disorders (20 sources) Heart murmur; Translations: [Undiagnosed cardiac murmurs] Onset: 06-19-2022 06-19-2022 Episodic Immunizations and screening for infectious disease (13 sources) Contact with and (suspected) exposure to other viral communicable diseases; Translations: [Exposure to SARS-associated coronavirus] Resolved: 06-22-2021 Episodic Osteoarthritis (4 sources) Osteoarthritis of right hip joint; Translations: [Primary osteoarthritis of right hip] Other bone disease and musculoskeletal deformities (20 sources) Osteopenia; Translations: [Disorder of bone and cartilage, unspecified] Onset: 06-19-2022 06-19-2022 Episodic Other connective tissue disease (20 sources) Recurrent falls ; Translations: [History of fall] Resolved: 06-22-2021 Episodic Other fractures (1 source) Fracture of second cervical vertebra; Translations: [Unspecified displaced fracture of second cervical vertebra, initial encounter for closed fracture] Onset: 04-18-2022 07-02-2022 Episodic Other gastrointestinal disorders (20 sources) Personal history of other diseases of the digestive system; Translations: [History of diverticulitis] Resolved: 10-12-2019 Episodic Other lower respiratory disease (20 sources) H/O: respiratory disease; Translations: [Personal history of other diseases of respiratory system] Resolved: 06-22-2021 Episodic Other lower respiratory disease (20 sources) History of clinical finding in subject; Translations: [Personal history of other diseases of respiratory system] Resolved: 10-12-2019 Episodic Other non-traumatic joint disorders (20 sources) Hip pain; Translations: [Pain in joint, pelvic region and thigh] Resolved: 10-12-2019 Episodic Other nutritional; endocrine; and metabolic disorders (20 sources) Body mass index 25-29 - overweight; Translations: [Body Mass Index 25.0-25.9, adult] Resolved: 10-12-2019 Episodic Other nutritional; endocrine; and metabolic disorders (18 sources) Overweight in adulthood with body mass index of 25 or more but less than 30; Translations: [Body Mass Index 25.0-25.9, adult] Resolved: 10-12-2019 Episodic Other screening for suspected conditions (not mental disorders or infectious disease) (20 sources) Patient encounter status; Translations: [Other screening mammogram] Onset: 06-10-2022 Resolved: 10-12-2019 06-20-2022 Episodic Other upper respiratory infections (20 sources) Acute upper respiratory infection; Translations: [Acute pharyngitis] Resolved: 10-12-2019 Episodic Residual codes; unclassified (20 sources) Insomnia; Translations: [Insomnia, unspecified] Onset: 06-19-2022 06-19-2022 Episodic Residual codes; unclassified (20 sources) Abnormal sensation; Translations: [Disturbance of skin sensation] Resolved: 10-12-2019 Episodic Residual codes; unclassified (20 sources) Personal history of other specified conditions; Translations: [History of palpitations] Resolved: 10-12-2019 Episodic Residual codes; unclassified (20 sources) Requires varicella vaccination; Translations: [Need for prophylactic vaccination and inoculation against other viral diseases] Resolved: 06-22-2021 Episodic Residual codes; unclassified (16 sources) For resuscitation; Translations: [Other specified conditions influencing health status] Onset: 06-20-2022 06-20-2022 Episodic Residual codes; unclassified (11 sources) H/O: Disorder; Translations: [Personal history of other specified diseases] Resolved: 06-22-2021 Episodic Residual codes; unclassified (11 sources) History of influenza vaccination; Translations: [Other specified conditions influencing health status] Resolved: 06-22-2021 Episodic Residual codes; unclassified (5 sources) Asymptomatic menopausal state; Translations: [Asymptomatic menopausal state] Onset: 10-24-2022 Episodic Screening and history of mental health and substance abuse codes (20 sources) H/O: depression; Translations: [Personal history of other mental disorders] Onset: 06-20-2022 Resolved: 10-12-2019 06-20-2022 Episodic Spondylosis; intervertebral disc disorders; other back problems (20 sources) Radicular pain; Translations: [Low back pain] Onset: 02-02-2018 Resolved: 10-12-2019 02-02-2018 Episodic Unclassified (20 sources) Procedure started; Translations: [Dietary supplement started] Resolved: 10-12-2019 Unclassified (10 sources) Patient encounter status; Translations: [Visit for screening mammogram] Unclassified (13 sources) History of clinical finding in subject; Translations: [History of cough] Resolved: 06-22-2021 Unclassified (4 sources) Onset: 06-20-2022 Resolved: 04-28-2023 06-20-2022 NEGATED: Highlighted row has not occurred!Residual codes; unclassified (20 sources) Disease Episodic Results Test Name Value Interpretation Reference Range Facil ity Vital Signs Date Time Vital Sign Value Performing Clinician Faci lity 04-28-2023 11:34-0500 Body height 165.1 cm Saima Hernandez MD Work Phone: [facility] 04-28-2023 11:34-0500 Body mass index (BMI) [Ratio] 26.63 kg/m2 Saima Hernandez MD Work Phone: [facility] 04-28-2023 11:34-0500 Body weight 72.58 kg Saima Hernandez MD Work Phone: [facility] 04-28-2023 11:34-0500 Diastolic blood pressure 66 mm[Hg] Saima Hernandez MD Work Phone: [facility] 04-28-2023 11:34-0500 Heart rate 50 /min Saima Hernandez MD Work Phone: [facility] 04-28-2023 11:34-0500 SaO2% (BldA) [Mass fraction] 95 % Saima Hernandez MD Work Phone: [facility] 04-28-2023 11:34-0500 Systolic blood pressure 123 mm[Hg] Saima Hernandez MD Work Phone: [facility] 02-28-2023 11:38-0500 Diastolic blood pressure 64 mm[Hg] Saima Hernandez MD Work Phone: [facility] 02-28-2023 11:38-0500 Systolic blood pressure 128 mm[Hg] Saima Hernandez MD Work Phone: [facility] 02-28-2023 11:21-0500 Body height 165.1 cm Saima Hernandez MD Work Phone: [facility] 02-28-2023 11:21-0500 Body mass index (BMI) [Ratio] 26.56 kg/m2 Saima Hernandez MD Work Phone: [facility] 02-28-2023 11:21-0500 Body weight 72.39 kg Saima Hernandez MD Work Phone: [facility] 02-28-2023 11:21-0500 Heart rate 49 /min Saima Hernandez MD Work Phone: [facility] 10-24-2022 11:25-0400 Diastolic blood pressure 70 mm[Hg] Saima Hernandez MD Work Phone: [facility] 10-24-2022 11:25-0400 Systolic blood pressure 124 mm[Hg] Saima Hernandez MD Work Phone: [facility] 10-24-2022 11:14-0400 Body height 166.4 cm Saima Hernandez MD Work Phone: [facility] Encounters Encounter Date Encounter Type Care Provider Facility Start: 04-28-2023 End: 04-28-2023 Office outpatient visit 25 minutes Saima Hernandez MD Work Phone: [facility] Procedures Date Procedure Procedure Detail Performing Clinician Start: 02-28-2023 MARCOS FUNES Start: 04-25-2022 Radex spine cervical 2 or 3 views Bronson Mccarty MD, PhD Work Phone: Start: 02-08-2020 25 hydroxy includes fractions if performed Saima Stutsman Start: 02-08-2020 CBC W Auto Different ial panel - Blood Saima Stutsman Start: 02-08-2020 Comprehensive metabo lic 2000 panel Saima Kelly Start: 02-08-2020 Lipid panel Saima Griffin on Start: 02-08-2020 TSH WITH REFLEX TO F REE T4 IF ABNORMAL Saima Stutsman Start: 11-08-2019 MG Breast screening Joana maravilla Stutsman Start: 05-21-2017 Lipid 1996 panel - S aubrey or Plasma Saima Hernandez MD Work Phone: Start: 10-17-2011 Cataract surgery Saima Hernandez Work Phone: Plan of Treatment Date Care Activity Detail Author Start: 06-24-2023 End: 06-24-2023 Patient encounter procedure 06/24/2023 11:00 AM EDT Office Visit [facility] [address] [facility] [address] [place] [address] Saima Hernandez MD [address] [facility], [facility] [address] [place] [address] [facility] Start: 06-23-2023 End: 02-29-2024 25-hydroxyvitamin D3 [Mass/volume] in Serum or Plasma Vitamin D 25-Hydroxy,Total (for eval of Vitamin D levels) Lab Routine Current moderate episode of major depressive disorder, unspecified whether recurrent ([facility]) Primary hypertension Inflammatory arthritis Mixed hyperlipidemia Gastroesophageal reflux disease without esophagitis Generalized osteoarthritis of multiple sites Vitamin D deficiency Expected: 06/23/2023, Expires: 02/29/2024 [facility] Work Phone: Immunizations Immunization Date Immunization Notes Care Provider Fa cili 02-28-2023 Flu vaccine, quadrivalent, high-dose, preservative free, age 65y+ (FLUZONE) Saima Hernandez MD Work Phone: [facility] Work Phone: 02-05-2021 influenza, high dose seasonal, preservative-free; Translations: [Fluzone High-Dose 0.5 ML Intramuscular Suspension Prefilled Syringe] Saima Hernandez Work Phone: [facility] Work Phone: Payers Date Payer Category Payer Medicare [id number] 2021 Medicare [id number] 1945 Unknown [id number] [id number]. [id number] 1945 Unknown [id number] 2.16. [id number] 1945 Unknown [id number] 2.16. [id number] 1945 Unknown [id number] 2.16. [id number] 1945 Unknown [id number] [id number] 1945 Unknown [id number] [id number] 1945 Unknown [id number] Unknown [employer] Social History Date Type Detail Facility Start: 06-20-2022 End: 02-28-2023 Never smoker Never smoker -[facility] Work Phone: Start: 06-07-2011 End: 06-20-2022 Tobacco smoking status NHIS Never smoked tobacco [facility] Start: 04-25-2022 End: 06-06-2022 Alcohol intake Current non-drinker of alcohol (finding) [facility] Start: 1945 Sex Assigned At Not on file C [facility] Start: 06-20-2022 Tobacco use and exposure Smoke less tobacco non-user [facility] Work Phone: Start: 06-20-2022 End: 02-28-2023 Humiliation, Afraid, Rape, and Kick questionnaire [HARK] [facility] Work Phone: Within the last year , have you been afraid of your partner or ex-partner? No [facility] Work Phone: Are you now , , , , never or living with a partner? [facility] Work Phone: How often to you hav e a drink containing alcohol? Never [facility] Work Phone: How many standard dr inks containing alcohol do you have on a typical day? Patient does not drink [facility] Work Phone: Do you feel stress - tense, restless, nervous, or anxious, or unable to sleep at night because your mind is troubled all the time - these days [OSQ] Not at all [facility] Work Phone: (I/We) worried clark er (my/our) food would run out before (I/we) got money to buy more. Never true [facility] Work Phone: Start: 06-10-2022 End: 04-28-2023 Exposure to SARS-CoV-2 (event) Not sure [facility] Start: 10-24-2022 End: 04-28-2023 Alcohol intake Lifetime non-drinker (finding) [facility] Work Phone: NEGATED: Highlighted row [facility] Work Phone: NEGATED: Highlighted rowStart: PILI History of tobacco use Passive smoker [facility] Work Phone: Functional Status Date Assessment Result Facility NEGATED: Highlighted row Functional performance Functional status health issues are not documented Disease [facility] Work [facility]: Mental Status Date Assessment Result Facility NEGATED: Highlighted row Cognitive function [Interpretation] Cognitive status health issues are not documented Disease [facility] Work Phone: Clinical Notes 09-16-2020 to 04-28-2023 Assessment & Plan Note - Saima Hernandez MD - 04/28/2023 1:33 PM ESTAssessment & Plan Note - Saima Hernandez MD - 04/28/2023 1:33 PM Noy Hernandez MD - 04/28/2023 11:30 AM EST Note Date & Type Note Facility 04-28-2023 Evaluation + Plan note Associated Problem(s): Primary osteoarthritis of left knee Patient has significant arthritis and degenerative joint of her left knee. She will be having a left total knee replacement on May 14. Assuming her blood work is normal she is cleared for surgery. [facility] Work Phone: 04-28-2023 Miscellaneous Notes Associated Problem(s): Primary osteoarthritis of left knee Patient has significant arthritis and degenerative joint of her left knee. She will be having a left total knee replacement on May 14. Assuming her blood work is normal she is cleared for surgery. Associated Problem(s): Preop examination Patient is scheduled to have an robot-assisted left total knee replacement on May 14 at [facility] by Dr. Rodriguez. At this time patient is in generally good health and assuming CBC and CMP are normal patient should be cleared for surgery with no difficulty. Patient was told to stop her Mobic and all other NSAIDs vitamin E and other vitamins 7 days before surgery. She was instructed that she could take Tylenol safely to Tylenol up to 2-3 times a day total. Patient states understanding will be careful not to take these medications documented in this encounter [facility] Work Phone: 04-28-2023 Evaluation + Plan note Associated Problem(s): Preop examination Patient is scheduled to have an robot-assisted left total knee replacement on May 14 at [facility] by Dr. Rodriguez. At this time patient is in generally good health and assuming CBC and CMP are normal patient should be cleared for surgery with no difficulty. Patient was told to stop her Mobic and all other NSAIDs vitamin E and other vitamins 7 days before surgery. She was instructed that she could take Tylenol safely to Tylenol up to 2-3 times a day total. Patient states understanding will be careful not to take these medications [facility] Work Phone: 04-28-2023 History of Presen t illness Narrative Subjective Patient ID: Ledy Ching is a 77 y.o. female who presents for pre op clearance. BN Patient is here today for preop clearance. She will be having a robot assisted total knee replacement by Dr. Rodriguez on May 14 of her left knee. I do have a preop clearance form but I do not have any PA-C testing which is supposed to be completed on May 04. I am not sure which blood work they ordered but do recommend a CBC CMP and type and screen so they were ordered and given to her and print and I do have a printed copy of an EKG that was performed that showed sinus bradycardia PAC otherwise normal EKG as a report I do not see the original EKG. Patient has no known bleeding dyscrasias bleeding tendencies or easy bruising. To her knowledge she has never had a blood transfusion. She has had anesthesia once before and remembers her heart pounding just that she went to sleep but this was more than 20 years ago when she had a hysterectomy in about 1979. I explained to the patient that anesthesia greatly changed in the last 40 years and they were much more [employer] and careful about how they put people under. She did not have any allergies or reactions to the anesthetic in any other way. Review of Systems Constitutional: Negative for chills, fatigue and fever. HENT: Negative for sore throat. Eyes: Negative for visual disturbance. Respiratory: Negative for cough and shortness of breath. Cardiovascular: Negative for chest pain, palpitations and leg swelling. Gastrointestinal: Negative for constipation, diarrhea, nausea and vomiting. Genitourinary: Negative for difficulty urinating, dysuria, frequency, hematuria and urgency. Musculoskeletal: Negative for arthralgias and myalgias. Skin: Negative for rash. Neurological: Negative for dizziness, syncope, weakness, light-headedness and headaches. Objective Medication Documentation Review Audit Reviewed by Saima Hernandez MD (Physician) on 04/28/23 at 1149 Medication Order Taking? Sig Documenting Provider Last Dose Status amLODIPine (Norvasc) 10 mg tablet [id number] No Take 1 tablet (10 mg) by mouth once daily. Saima Hernandez MD Taking Active ascorbic acid, vitamin C, 500 mg capsule [id number] No Take by mouth. Historical Provider, Taking Active calcium carbonate 600 mg calcium (1,500 mg) tablet [id number] No Take 1 tablet (600 mg) by mouth. Historical Provider, Taking Active carvedilol (Coreg) 3.125 mg tablet [id number] No TAKE 1 TABLET TWICE A DAY Saima Hernandez MD Taking Active cholecalciferol (Vitamin D-3) 50 mcg (2,000 unit) capsule [id number] No Take 1 capsule (50 mcg) by mouth. Historical Provider, Taking Active hydroCHLOROthiazide (HYDRODiuril) 50 mg tablet [id number] No Take 1 tablet (50 mg) by mouth once daily. Saima Hernandez MD Taking Active lisinopril 40 mg tablet [id number] No Take 1 tablet (40 mg) by mouth once daily. Saima Hernandez MD Taking Active meloxicam (Mobic) 15 mg tablet [id number] No Take 1 tablet (15 mg) by mouth once daily. Saima Hernandez MD Taking Active omeprazole (PriLOSEC) [address] capsule [id number] No Take 1 capsule (40 mg) by mouth once daily. Saima Hernandez MD Taking Active PARoxetine (Paxil) 20 mg tablet [id number] No Take 1 tablet (20 mg) by mouth once daily. Saima Hernandez MD Taking Active simvastatin (Zocor) 20 mg tablet [id number] No Take 1 tablet (20 mg) by mouth once daily. Saima Hernandez MD Taking Active traZODone (Desyrel) 100 mg tablet [id number] No Take 1 tablet (100 mg) by mouth once daily at bedtime. Saima Hernandez MD Taking Active zoster vaccine-recombinant adjuvanted (Shingrix) 50 mcg/0.5 mL vaccine [id number] No Inject into the shoulder, thigh, or buttocks. Historical Provider, Taking Active No Known Allergies Physical Exam Constitutional: Appearance: Normal appearance. HENT: Head: Normocephalic and atraumatic. Nose: Nose normal. Eyes: Extraocular Movements: Extraocular movements intact. Pupils: Pupils are equal, round, and reactive to light. Cardiovascular: Rate and Rhythm: Normal rate and regular rhythm. Pulmonary: Breath sounds: Normal breath sounds. Abdominal: General: Abdomen is flat. Bowel sounds are normal. Palpations: Abdomen is soft. Musculoskeletal: Right lower leg: No edema. Left lower leg: No edema. Neurological: Mental Status: She is alert. BP 123/66 (BP Location: Left arm, Patient Position: Sitting) Pulse 50 Ht 1.651 m (5' 5 ) Wt 72.6 kg (160 lb) SpO2 95% BMI 26.63 kg/m Assessment/Plan Problem List Items Addressed This Visit Hypertension Hyperlipidemia Hypercholesterolemia Preop examination - Primary Patient is scheduled to have an robot-assisted left total knee replacement on May 14 at [facility] by Dr. Rodriguez. At this time patient is in generally good health and assuming CBC and CMP are normal patient should be cleared for surgery with no difficulty. Patient was told to stop her Mobic and all other NSAIDs vitamin E and other vitamins 7 days before surgery. She was instructed that she could take Tylenol safely to Tylenol up to 2-3 times a day total. Patient states understanding will be careful not to take these medications Relevant Orders CBC Comprehensive metabolic panel Type and screen Primary osteoarthritis of left knee Patient has significant arthritis and degenerative joint of her left knee. She will be having a left total knee replacement on May 14. Assuming her blood work is normal she is cleared for surgery. Other Visit Diagnoses Total knee replacement status, left Relevant Orders CBC Comprehensive metabolic panel Type and screen It has been a pleasure seeing you. Saima Hernandez MD documented in this encounter [facility] Work Phone: 04-28-2023 Instructions Saima Hernandez MD - 04/28/2023 11:30 AM EST Stop all multi vit and Vit E and Mobic 1 week before surgery. Do not take any NSAIDs like advil, motrin, aspirin, aleve or Ibuprfen for 1 week before surgery. You may take tylenol. Get fasting labs at before your 06/24/23 appointment Get labs at [facility] for surg. documented in this encounter [facility] Work Phone: 02-28-2023 Evaluation + Plan note Associated Problem(s): Generalized osteoarthritis of multiple sites Patient is stumbling more frequently having a gait disorder and worsening arthritis. We will give her for referral to physical therapy for strengthening and gait disorder as well as a prescription for rollator walker with a seat. I encouraged her to use a rollator when she is out and about but try to limit it at home as we want her to strengthen herself as well and not become dependent on it. Patient states understanding [facility] Work Phone: 02-28-2023 Miscellaneous Notes Associated Problem(s): Generalized osteoarthritis of multiple sites Patient is stumbling more frequently having a gait disorder and worsening arthritis. We will give her for referral to physical therapy for strengthening and gait disorder as well as a prescription for rollator walker with a seat. I encouraged her to use a rollator when she is out and about but try to limit it at home as we want her to strengthen herself as well and not become dependent on it. Patient states understanding Associated Problem(s): Current moderate episode of major depressive disorder (CMS/HCC) Patient's depression is stable on paroxetine or Paxil 20 mg daily. She denies any side effects Associated Problem(s): Hypertension Blood pressure is stable and well-controlled. Associated Problem(s): Hyperlipidemia Patient will remain on simvastatin 20 mg daily now and she will check lipid profile prior to her appointment in May documented in this encounter [facility] Work Phone: 02-28-2023 Evaluation + Plan note Associated Problem(s): Current moderate episode of major depressive disorder (CMS/HCC) Patient's depression is stable on paroxetine or Paxil 20 mg daily. She denies any side effects [facility] Work Phone: 02-28-2023 Evaluation + Plan note Associated Problem(s): Hypertension Blood pressure is stable and well-controlled. [facility] Work Phone: 02-28-2023 Evaluation + Plan note Associated Problem(s): Hyperlipidemia Patient will remain on simvastatin 20 mg daily now and she will check lipid profile prior to her appointment in May [facility] Work Phone: 02-28-2023 History of Presen t illness Narrative Subjective Patient ID: Ledy Ching is a 77 y.o. female who presents for No chief complaint on file.. Patient is here today for routine 4-month follow-up for hypertension, high cholesterol vitamin D deficiency and reflux symptoms as well as medication management. Patient forgot her hearing aids today and is having a very hard time hearing loss unless we look directly at her so she can range her lips. She is seeing the hearing aid people later this afternoon to see if she can get them repaired Patient feels very unstable and occasionally lightheaded and although she has not had a fall she has had several stumbles recently and wants to know if she can get a rollator walker. She does qualify because of her severe arthritis in her hands knees and back as well as 1 with a seat so she can take a break and sit down in between long distances and walking. Patient was given a prescription for the rollator walker with a seat Review of Systems Constitutional: Negative for chills, fatigue and fever. HENT: Negative for sore throat. Eyes: Negative for visual disturbance. Respiratory: Negative for cough and shortness of breath. Cardiovascular: Negative for chest pain, palpitations and leg swelling. Gastrointestinal: Negative for constipation, diarrhea, nausea and vomiting. Genitourinary: Negative for difficulty urinating, dysuria, frequency, hematuria and urgency. Musculoskeletal: Positive for back pain and gait problem. Negative for arthralgias and myalgias. Skin: Negative for rash. Neurological: Negative for dizziness, syncope, weakness, light-headedness and headaches. Objective Medication Documentation Review Audit Reviewed by Saima Hernandez MD (Physician) on 02/28/23 at 1127 Medication Order Taking? Sig Documenting Provider Last Dose Status amLODIPine (Norvasc) 10 mg tablet [id number] Yes Take 1 tablet (10 mg) by mouth once daily. Saima Hernandez MD Taking Active ascorbic acid, vitamin C, 500 mg capsule [id number] Yes Take by mouth. Historical Provider, Taking Active calcium carbonate 600 mg calcium (1,500 mg) tablet [id number] Yes Take 1 tablet (600 mg) by mouth. Historical Provider, Taking Active carvedilol (Coreg) 3.125 mg tablet [id number] Yes TAKE 1 TABLET TWICE A DAY Saima Hernandez MD Taking Active cholecalciferol (Vitamin D-3) 50 mcg (2,000 unit) capsule [id number] Yes Take 1 capsule (50 mcg) by mouth. Historical Provider, Taking Active hydroCHLOROthiazide (HYDRODiuril) 50 mg tablet [id number] Yes Take 1 tablet (50 mg) by mouth once daily. Saima Hernandez MD Taking Active lisinopril 40 mg tablet [id number] Yes Take 1 tablet (40 mg) by mouth once daily. Saima Hernandez MD Taking Active meloxicam (Mobic) 15 mg tablet [id number] Yes Take 1 tablet (15 mg) by mouth once daily. Saima Hernandez MD Taking Active omeprazole (PriLOSEC) [address] capsule [id number] Yes Take 1 capsule (40 mg) by mouth once daily. Saima Hernandez MD Taking Active PARoxetine (Paxil) 20 mg tablet [id number] Yes Take 1 tablet (20 mg) by mouth once daily. Saima Hernandez MD Taking Active simvastatin (Zocor) 20 mg tablet [id number] Yes Take 1 tablet (20 mg) by mouth once daily. Saima Hernandez MD Taking Active traZODone (Desyrel) 100 mg tablet [id number] Yes Take 1 tablet (100 mg) by mouth once daily at bedtime. Saima Hernandez MD Taking Active zoster vaccine-recombinant adjuvanted (Shingrix) 50 mcg/0.5 mL vaccine [id number] Yes Inject into the shoulder, thigh, or buttocks. Historical Provider, Taking Active No Known Allergies Physical Exam Constitutional: Appearance: Normal appearance. HENT: Head: Normocephalic and atraumatic. Nose: Nose normal. Eyes: Extraocular Movements: Extraocular movements intact. Pupils: Pupils are equal, round, and reactive to light. Cardiovascular: Rate and Rhythm: Normal rate and regular rhythm. Pulmonary: Breath sounds: Normal breath sounds. Abdominal: General: Abdomen is flat. Bowel sounds are normal. Palpations: Abdomen is soft. Musculoskeletal: Right lower leg: No edema. Left lower leg: No edema. 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 She has an ulnar drift in both hands slightly. She has arthritic changes in her knees and hips as well. Neurological: Mental Status: She is alert. BP 128/64 Pulse (!) 49 Ht 1.651 m (5' 5 ) Wt 72.4 kg (159 lb 9.6 oz) BMI 26.56 kg/m Assessment/Plan Problem List Items Addressed This Visit Inflammatory arthritis Relevant Orders Lipid Panel CBC Comprehensive Metabolic Panel TSH with reflex to Free T4 if abnormal Vitamin D 25-Hydroxy,Total (for eval of Vitamin D levels) Walker rolling Hypertension - Primary Blood pressure is stable and well-controlled. Relevant Orders Lipid Panel CBC Comprehensive Metabolic Panel TSH with reflex to Free T4 if abnormal Vitamin D 25-Hydroxy,Total (for eval of Vitamin D levels) Hyperlipidemia Patient will remain on simvastatin 20 mg daily now and she will check lipid profile prior to her appointment in May Relevant Orders Lipid Panel CBC Comprehensive Metabolic Panel TSH with reflex to Free T4 if abnormal Vitamin D 25-Hydroxy,Total (for eval of Vitamin D levels) Hypercholesterolemia Generalized osteoarthritis of multiple sites Patient is stumbling more frequently having a gait disorder and worsening arthritis. We will give her for referral to physical therapy for strengthening and gait disorder as well as a prescription for rollator walker with a seat. I encouraged her to use a rollator when she is out and about but try to limit it at home as we want her to strengthen herself as well and not become dependent on it. Patient states understanding Relevant Orders Lipid Panel CBC Comprehensive Metabolic Panel TSH with reflex to Free T4 if abnormal Vitamin D 25-Hydroxy,Total (for eval of Vitamin D levels) Walker rolling Referral to Physical Therapy Current moderate episode of major depressive disorder ([facility]) Patient's depression is stable on paroxetine or Paxil 20 mg daily. She denies any side effects Relevant Orders Lipid Panel CBC Comprehensive Metabolic Panel TSH with reflex to Free T4 if abnormal Vitamin D 25-Hydroxy,Total (for eval of Vitamin D levels) GERD (gastroesophageal reflux disease) Relevant Orders Lipid Panel CBC Comprehensive Metabolic Panel TSH with reflex to Free T4 if abnormal Vitamin D 25-Hydroxy,Total (for eval of Vitamin D levels) Vitamin D deficiency Relevant Orders Lipid Panel CBC Comprehensive Metabolic Panel TSH with reflex to Free T4 if abnormal Vitamin D 25-Hydroxy,Total (for eval of Vitamin D levels) Other Visit Diagnoses Gait disorder Relevant Orders Referral to Physical Therapy Needs flu shot Relevant Orders Flu vaccine, quadrivalent, high-dose, preservative free, age 65y+ (FLUZONE) (Completed) It has been a pleasure seeing you. Amilcar Valverde was identified as a fall risk. Risk prevention instructions provided. documented in this encounter [facility] Work Phone: 02-28-2023 Instructions Saima Hernandez MD - 02/28/2023 11:15 AM EST Follow up Dr Hernandez in May with 45 min wellness exam Get fasting labs before May appointment Ways to Help Prevent Falls at Home Quick Tips ? Ask for help if you need it. Most people want to help! ? Get up slowly after sitting or laying down ? Wear a medical alert device or keep cell phone in your pocket ? Use night lights, especially areas near a bathroom ? Keep the items you use often within reach on a small stool or end table ? Use an assistive device such as walker or cane, as directed by provider/physical therapy ? Use a non-slip mat and grab bars in your bathroom. Look for home health sections for best options Other Areas to Focus On ? Exercise and nutrition: Regular exercise or taking a falls prevention class are great ways improve strength and balance. Don t forget to stay hydrated and bring a snack! ? Medicine side effects: Some medicines can make you sleepy or dizzy, which could cause a fall. Ask your healthcare provider about the side effects your medicines could cause. Be sure to let them know if you take any vitamins or supplements as well. ? Tripping hazards: Remove items you could trip on, such as loose mats, rugs, cords, and clutter. Wear closed toe shoes with rubber soles. ? Health and wellness: Get regular checkups with your healthcare provider, plus routine vision and hearing screenings. Talk with your healthcare provider about: o Your medicines and the possible side effects - bring them in a bag if that is easier! o Problems with balance or feeling dizzy o Ways to promote bone health, such as Vitamin D and calcium supplements o Questions or concerns about falling *Ask your healthcare team if you have questions [facility] 2021 documented in this encounter [facility] Work Phone: 12-06-2022 Note HNO ID: [id number] Author: Pepe Nguyen PT Service: ? Author Type: Physical Therapist Type: Progress Notes Filed: 12/06/2022 11:01 AM Note Text: 12/06/2022 [facility] REH[facility]ILITATION AND SPORTS THERAPY PHYSICAL THERAPY DISCONTINUANCE OF CARE Plan of Care Period: Start of Care Date: 06/24/22 Last Visit Date: 06/24/2022 Therapy Program: Patient did not return for follow up care as planned. Please refer to last visit note for interventions provided for this episode of care. Assessment: Unable to formally assess goal achievement. Reason for Discontinuation of Care: Patient has not returned to therapy or scheduled additional follow-up appointments. Pepe Nguyen PT [facility] 10-24-2022 Evaluation + Plan note Associated Problem(s): Insomnia Patient is on trazodone 100 at bedtime and it is working well so she was given a refill. [facility] Work Phone: 10-24-2022 Evaluation + Plan note Associated Problem(s): Current moderate episode of major depressive disorder (CMS/HCC) Depression is stable, patient takes paroxetine or Paxil 20 mg daily and trazodone 100 mg at bedtime for sleep. [facility] Work Phone: 10-24-2022 Miscellaneous Notes Associated Problem(s): Insomnia Patient is on trazodone 100 at bedtime and it is working well so she was given a refill. Associated Problem(s): Current moderate episode of major depressive disorder (CMS/HCC) Depression is stable, patient takes paroxetine or Paxil 20 mg daily and trazodone 100 mg at bedtime for sleep. Associated Problem(s): GERD (gastroesophageal reflux disease) Gastroesophageal reflux disease is stable. Patient is on Prilosec or omeprazole 40 mg daily to prevent breakthrough symptoms Associated Problem(s): Hypertension Blood pressure stable and well-controlled. Associated Problem(s): Hyperlipidemia Annual labs were completed in April and May. Patient will remain on simvastatin 20 mg daily documented in this encounter [facility] Work Phone: 10-24-2022 Evaluation + Plan note Associated Problem(s): GERD (gastroesophageal reflux disease) Gastroesophageal reflux disease is stable. Patient is on Prilosec or omeprazole 40 mg daily to prevent breakthrough symptoms [facility] Work Phone: 10-24-2022 Evaluation + Plan note Associated Problem(s): Hypertension Blood pressure stable and well-controlled. [facility] Work Phone: 10-24-2022 Evaluation + Plan note Associated Problem(s): Hyperlipidemia Annual labs were completed in April and May. Patient will remain on simvastatin 20 mg daily [facility] Work Phone: 10-24-2022 History of Presen t illness Narrative Subjective Patient ID: Ledy Ching is a 77 y.o. female who presents for 4 month follow up for HTN management. BN Patient is here today for routine follow-up for her arthritis, hypertension and depression. She feels well overall and has no new complaints. Review of Systems Constitutional: Negative for chills, fatigue and fever. HENT: Negative for sore throat. Eyes: Negative for visual disturbance. Respiratory: Negative for cough and shortness of breath. Cardiovascular: Negative for chest pain, palpitations and leg swelling. Gastrointestinal: Negative for constipation, diarrhea, nausea and vomiting. Genitourinary: Negative for difficulty urinating, dysuria, frequency, hematuria and urgency. Musculoskeletal: Negative for arthralgias and myalgias. Skin: Negative for rash. Neurological: Negative for dizziness, syncope, weakness, light-headedness and headaches. Objective Medication Documentation Review Audit Reviewed by Saima Hernandez MD (Physician) on 10/24/22 at 1121 Medication Order Taking? Sig Documenting Provider Last Dose Status amLODIPine (Norvasc) 10 mg tablet [id number] Take 1 tablet (10 mg) by mouth once daily. Saima Hernandez MD Active ascorbic acid, vitamin C, 500 mg capsule [id number] Take by mouth. Historical Provider, Active calcium carbonate 600 mg calcium (1,500 mg) tablet [id number] Take 1 tablet (600 mg) by mouth. Historical Provider, Active carvedilol (Coreg) 3.125 mg tablet [id number] 1 tablet (3.125 mg). Historical Provider, Active cholecalciferol (Vitamin D-3) 50 mcg (2,000 unit) capsule [id number] Take 1 capsule (50 mcg) by mouth. Historical Provider, Active hydroCHLOROthiazide (HYDRODiuril) 50 mg tablet [id number] Take 1 tablet (50 mg) by mouth once daily. Historical Provider, Active lisinopril 40 mg tablet [id number] Take 1 tablet (40 mg) by mouth once daily. Saima Hernandez MD Active meloxicam (Mobic) 15 mg tablet [id number] Take 1 tablet (15 mg) by mouth once daily. Historical Provider, Active omeprazole (PriLOSEC) [address] capsule [id number] Take 1 capsule (40 mg) by mouth once daily. Saima Hernandez MD Active PARoxetine (Paxil) 20 mg tablet [id number] Take 1 tablet (20 mg) by mouth once daily. Saima Hernandez MD Active simvastatin (Zocor) 20 mg tablet [id number] Take 1 tablet (20 mg) by mouth once daily. Historical Provider, Active traZODone (Desyrel) 100 mg tablet [id number] Take 1 tablet (100 mg) by mouth once daily at bedtime. Saima Hernandez MD Active zoster vaccine-recombinant adjuvanted (Shingrix) 50 mcg/0.5 mL vaccine [id number] Inject into the shoulder, thigh, or buttocks. Historical Provider, Active Physical Exam Constitutional: Appearance: Normal appearance. HENT: Head: Normocephalic and atraumatic. Nose: Nose normal. Eyes: Extraocular Movements: Extraocular movements intact. Pupils: Pupils are equal, round, and reactive to light. Cardiovascular: Rate and Rhythm: Normal rate and regular rhythm. Pulmonary: Breath sounds: Normal breath sounds. Abdominal: General: Abdomen is flat. Bowel sounds are normal. Palpations: Abdomen is soft. Musculoskeletal: Right lower leg: No edema. Left lower leg: No edema. Neurological: Mental Status: She is alert. BP 124/70 Pulse 51 Ht 1.664 m (5' 5.5 ) Comment: with shoes Wt 73.4 kg (161 lb 12.8 oz) SpO2 95% BMI 26.52 kg/m Assessment/Plan Problem List Items Addressed This Visit Hypertension Blood pressure stable and well-controlled. Relevant Medications lisinopril 40 mg tablet Insomnia Patient is on trazodone 100 at bedtime and it is working well so she was given a refill. Hyperlipidemia Annual labs were completed in April and May. Patient will remain on simvastatin 20 mg daily Hypercholesterolemia Generalized osteoarthritis of multiple sites Relevant Medications meloxicam (Mobic) 15 mg tablet Current moderate episode of major depressive disorder (CMS/HCC) Depression is stable, patient takes paroxetine or Paxil 20 mg daily and trazodone 100 mg at bedtime for sleep. Relevant Medications PARoxetine (Paxil) 20 mg tablet GERD (gastroesophageal reflux disease) Gastroesophageal reflux disease is stable. Patient is on Prilosec or omeprazole 40 mg daily to prevent breakthrough symptoms Other Visit Diagnoses Asymptomatic menopausal state - Primary Relevant Orders XR DEXA bone density It has been a pleasure seeing you. documented in this encounter [facility] Work Phone: 10-24-2022 Instructions Saima Hernandez MD - 10/24/2022 11:00 AM EDT Get dxa after 11/07/[address] Hernandez in 4 months for HTN etc documented in this encounter [facility] Work Phone: 08-23-2022 Miscellaneous Notes No Show Documentation Ledy Ching no showed for an appointment on 08/05/22 with Bronson Mccarty MD, PhD at 11:00 am. She was scheduled for 2 month follow up with XR. I called and spoke with the patient regarding her missed appointment. Ledy stated the reason that she missed her appointment was because No answer, left voicemail . Resources discussed/offered to patient: N/A No show determined to be fault of patient: Yes This is the patients first no show in the last 12 months. Patient was rescheduled for N/A. Letter mailed : No Is this the Third or Fourth No Show ? No Summer Mcclain Ma August 23, 2022 10:55 AM documented in this encounter [facility] 06-24-2022 Note HNO ID: [id number] Author: Pepe Nguyen PT Service: ? Author Type: Physical Therapist Type: Progress Notes Filed: 06/25/2022 1:00 PM Note Text: Episode Visit Count: 1 Therapist That Will Accept/Oversee The Plan Of Care: Pepe Nguyen Start of Care Date: 06/24/22 Onset Date: 04/17/22 Plan of Care Certification Date: 02/02/18 Next Certification Due Date: 04/14/18 Patient Identified by Name and Date of : Yes REHABILITATION AND SPORTS THERAPY PHYSICAL THERAPY EVALUATION PLAN OF CARE: Assessment: Ledy Ching presents with chief complaint of Balance/gait difficulties that interferes with walking, stair negotiation . She presents with impairments in balance, gait, independence in exercise, and strength. Patient did not complete the PROMIS? (Patient Reported Outcome Measures Information System). Prognosis for therapy is Good due to: current objective clinical presentation, good overall health status . She will benefit from skilled therapy services to meet the goals established for this plan of care as noted below. Goals for Episode of Care: created on 06/24/22 through 08/20/22 Pt will demo Tandem stance for 5 sec each leg in 8 weeks or less Pt will demo gait that is independent with use of SPC without supervision needed Pt will demo 5/5 hip strength for ease of stair negotiation [place] in home exercise program. Patient Goals: Strengthen and improve balance Planned Interventions, Frequency, and Duration: Current Frequency: (1x/week for 2 weeks then 2x/week for 2 weeks) Duration: 4 weeks Total Number of Visits Planned: 6 Planned Treatment Interventions: Therapeutic exercise (63155), Neuromuscular re-education (45167), Manual therapy (62568), Self-residential management (17256), Gait Training (58960), Patient/Family/Caregiver Education PLAN FOR NEXT VISIT: Balance training. LE strengthening Patient demonstrates good understanding of plan of care and treatment. The above goals and plan of care were discussed and agreed upon by patient/family. SUBJECTIVE: Ledy Ching is a 76 year old female seen today for Fell and fractured C2. Wears cervical collar at times. Tough to drive in. Takes it off to drive. Pt fell backwards and head hit in the garage. Uses a walking stick when in her yard. Has spinal stenosis and knees that are arthritic. Patient Goals: Strengthen and improve balance Functional Limitations: walking, stair negotiation Prior Level of Function: Independent without limitations Home Environment Patient Lives With: Spouse Home Type: Multi-Level Intake Information: Prescription present Previous Treatment: None Pain: Pain Pain Level: 6 Pain Location: Neck Description: Aching PROMIS Scales T-scores: mean of general population = 50. 5 points is clinically meaningfully difference Percentiles provide an indication of how the patient's score ranks in relation to the general population. Higher percentile rankings indicate better function/quality of life. 50th percentile is the average of the general population and indicates half of respondents had a worse score. OBJECTIVE MEASURES WITH LEVEL OF FUNCTION: LE Strength R Hip Extension: 4/5 R Hip Flexion (L2): 4/5 R Hip External Rotation: 4-/5 R Knee Extension (L3): 4+/5 R Knee Flexion: 4+/5 R Ankle Dorsiflexion (L4): 4+/5 L Hip External Rotation: 4-/5 L Knee Extension (L3): 4+/5 L Knee Flexion: 4+/5 L Ankle Dorsiflexion (L4): 4/5 Functional Performance Test Results 30 Second Chair Stand Test: 7 reps 4 Stage Balance Test Narrow base of support (sec): 30 sec Semi-tandem base of support (sec): 15 sec Tandem base of support (sec): 0 sec Single leg stance - right (sec): 0 sec Single leg stance - left (sec): 0 sec Education: Education Learning Preferences: Demonstration, Explanation, Performance, Printed Materials Barriers: None Learning/educational needs: Plan of Care, Home exercise program Education Provided: Yes, see treatment interventions for education provided Education Provided To: Patient Education Mode/Type: Demonstration, Explanation/Discussion, Literature/Printed Materials, Performance Response to Education/Teach Back: States/Identifies, Return Demonstration TREATMENT: PT Treatment Interventions: Therapeutic Exercise, Gait Training Evaluation Therapeutic Exercise: 1: Hooklying Bilat ER BTB 2 x 10 reps 2: Hooklying bridge 2 x 10 reps 3: Discussed therapy goals, exam findings, and purpose of the HEP. Skilled Intervention: Patient was educated in proper exercise technique and purpose for exercises. Skilled judgment was provided in selection of appropriate interventions. Provided written instruction for home exercise program to facilitate proper performance and compliance. Correct performance of therapeutic exercises was facilitated with verbal and visual cuing. Gait Trainin: Discussed proper gait pattern and sizing of SPC. (more content not included)... [facility] 06-24-2022 History of Presen t illness Narrative Episode Visit Count: 1 Therapist That Will Accept/Oversee The Plan Of Care: Pepe Nguyen Start of Care Date: 06/24/22 Onset Date: 04/17/22 Plan of Care Certification Date: 02/02/18 Next Certification Due Date: 04/14/18 Patient Identified by Name and Date of : Yes REHABILITATION AND SPORTS THERAPY PHYSICAL THERAPY EVALUATION PLAN OF CARE: Assessment: Ledy Ching presents with chief complaint of Balance/gait difficulties that interferes with walking, stair negotiation . She presents with impairments in balance, gait, independence in exercise, and strength. Patient did not complete the PROMIS (Patient Reported Outcome Measures Information System). Prognosis for therapy is Good due to: current objective clinical presentation, good overall health status . She will benefit from skilled therapy services to meet the goals established for this plan of care as noted below. Goals for Episode of Care: created on 06/24/22 through 08/20/22 Pt will demo Tandem stance for 5 sec each leg in 8 weeks or less Pt will demo gait that is independent with use of SPC without supervision needed Pt will demo 5/5 hip strength for ease of stair negotiation [place] in home exercise program. Patient Goals: Strengthen and improve balance Planned Interventions, Frequency, and Duration: Current Frequency: (1x/week for 2 weeks then 2x/week for 2 weeks) Duration: 4 weeks Total Number of Visits Planned: 6 Planned Treatment Interventions: Therapeutic exercise (23960), Neuromuscular re-education (72482), Manual therapy (67894), Self-residential management (55137), Gait Training (05117), Patient/Family/Caregiver Education PLAN FOR NEXT VISIT: Balance training. LE strengthening Patient demonstrates good understanding of plan of care and treatment. The above goals and plan of care were discussed and agreed upon by patient/family. SUBJECTIVE: Ledy Ching is a 76 year old female seen today for Fell and fractured C2. Wears cervical collar at times. Tough to drive in. Takes it off to drive. Pt fell backwards and head hit in the garage. Uses a walking stick when in her yard. Has spinal stenosis and knees that are arthritic. Patient Goals: Strengthen and improve balance Functional Limitations: walking, stair negotiation Prior Level of Function: Independent without limitations Home Environment Patient Lives With: Spouse Home Type: Multi-Level Intake Information: Prescription present Previous Treatment: None Pain: Pain Pain Level: 6 Pain Location: Neck Description: Aching PROMIS Scales T-scores: mean of general population = 50. 5 points is clinically meaningfully difference Percentiles provide an indication of how the patient's score ranks in relation to the general population. Higher percentile rankings indicate better function/quality of life. 50th percentile is the average of the general population and indicates half of respondents had a worse score. OBJECTIVE MEASURES WITH LEVEL OF FUNCTION: LE Strength R Hip Extension: 4/5 R Hip Flexion (L2): 4/5 R Hip External Rotation: 4-/5 R Knee Extension (L3): 4+/5 R Knee Flexion: 4+/5 R Ankle Dorsiflexion (L4): 4+/5 L Hip External Rotation: 4-/5 L Knee Extension (L3): 4+/5 L Knee Flexion: 4+/5 L Ankle Dorsiflexion (L4): 4/5 Functional Performance Test Results 30 Second Chair Stand Test: 7 reps 4 Stage Balance Test Narrow base of support (sec): 30 sec Semi-tandem base of support (sec): 15 sec Tandem base of support (sec): 0 sec Single leg stance - right (sec): 0 sec Single leg stance - left (sec): 0 sec Education: Education Learning Preferences: Demonstration, Explanation, Performance, Printed Materials Barriers: None Learning/educational needs: Plan of Care, Home exercise program Education Provided: Yes, see treatment interventions for education provided Education Provided To: Patient Education Mode/Type: Demonstration, Explanation/Discussion, Literature/Printed Materials, Performance Response to Education/Teach Back: States/Identifies, Return Demonstration TREATMENT: PT Treatment Interventions: Therapeutic Exercise, Gait Training Evaluation Therapeutic Exercise: 1: Hooklying Bilat ER BTB 2 x 10 reps 2: Hooklying bridge 2 x 10 reps 3: Discussed therapy goals, exam findings, and purpose of the HEP. Skilled Intervention: Patient was educated in proper exercise technique and purpose for exercises. Skilled judgment was provided in selection of appropriate interventions. Provided written instruction for home exercise program to facilitate proper performance and compliance. Correct performance of therapeutic exercises was facilitated with verbal and visual cuing. Gait Trainin: Discussed proper gait pattern and sizing of SPC. VC's for decreased step length with and without use of SPC. Proper stepping pattern enforced. 2: Recommended purchasing cane for future use until balance is improved Skilled Intervention: Patient was provided contact guard assistance during pre-gait/gait training to prevent falls and insure safety. Gait belt utilized during session for safety. Billing * Evaluation Low Complexity: 1 Unit Therapeutic Exercise Treatment Minutes: 15 Gait Training Treatment Minutes: 8 Total Treatment Time Minutes (timed/untimed): 45 Pepe Nguyen PT documented in this encounter [facility] 06-20-2022 Evaluation + Plan note Associated Problem(s): Screening for multiple conditions Depression screen is positive but she has active depression and it is being treated and she feels she is stable. [facility] Work Phone: 06-20-2022 Evaluation + Plan note Associated Problem(s): Alcohol screening Patient does not drink alcohol and screening was negative. [facility] Work Phone: 06-20-2022 Evaluation + Plan note Associated Problem(s): Full code status CODE STATUS was discussed with the patient today DNR comfort care, DNR Comfort Care arrest and full code were all reviewed with the patient. At this time she would like full code and understands this may include CPR, cardioversion intubation and ventilation if necessary until she is stabilized. Patient is also working on her power of city attorney and living well but they have not been completed yet. When they are completed she was instructed to bring us a copy [facility] Work Phone: 06-20-2022 Miscellaneous Notes Associated Problem(s): Screening for multiple conditions Depression screen is positive but she has active depression and it is being treated and she feels she is stable. Associated Problem(s): Alcohol screening Patient does not drink alcohol and screening was negative. Associated Problem(s): Full code status CODE STATUS was discussed with the patient today DNR comfort care, DNR Comfort Care arrest and full code were all reviewed with the patient. At this time she would like full code and understands this may include CPR, cardioversion intubation and ventilation if necessary until she is stabilized. Patient is also working on her power of city attorney and living well but they have not been completed yet. When they are completed she was instructed to bring us a copy Associated Problem(s): Wellness examination Wellness visit was completed today including review of safety issues. Patient does not have a living will or power of city attorney but is talking to her about completing these documents. CODE STATUS was reviewed and she does want to be a full code. Associated Problem(s): Current moderate episode of major depressive disorder (CMS/HCC) Patient feels she is stable with her depression on the paroxetine. 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 Associated Problem(s): Hyperlipidemia Patient has high cholesterol and is taking simvastatin 20 mg daily liver enzymes remain normal and cholesterol is at goal as she just completed annual blood work Associated Problem(s): GERD (gastroesophageal reflux disease) GERD is stable and she was given a refill on omeprazole 40 mg daily. Associated Problem(s): Hypertension Blood pressure is stable and she was given a refill on her amlodipine documented in this encounter [facility] Work Phone: 06-20-2022 Evaluation + Plan note Associated Problem(s): Wellness examination Wellness visit was completed today including review of safety issues. Patient does not have a living will or power of city attorney but is talking to her about completing these documents. CODE STATUS was reviewed and she does want to be a full code. [facility] Work Phone: 06-20-2022 Evaluation + Plan note Associated Problem(s): Current moderate episode of major depressive disorder (CMS/HCC) Patient feels she is stable with her depression on the paroxetine. 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 [facility] Work Phone: 06-20-2022 Evaluation + Plan note Associated Problem(s): Hyperlipidemia Patient has high cholesterol and is taking simvastatin 20 mg daily liver enzymes remain normal and cholesterol is at goal as she just completed annual blood work [facility] Work Phone: 06-20-2022 Evaluation + Plan note Associated Problem(s): GERD (gastroesophageal reflux disease) GERD is stable and she was given a refill on omeprazole 40 mg daily. [facility] Work Phone: 06-20-2022 Evaluation + Plan note Associated Problem(s): Hypertension Blood pressure is stable and she was given a refill on her amlodipine [facility] Work Phone: 06-20-2022 History of Presen t illness Narrative Subjective Reason for Visit: Ledy Ching is an 76 y.o. female here for a Medicare Wellness visit. Past Medical, Surgical, and Family History reviewed and updated in chart. Reviewed all medications by prescribing practitioner or clinical pharmacist (such as prescriptions, OTCs, herbal therapies and supplements) and documented in the medical record. Patient is here for annual wellness visit as well as management of her depression, reflux cholesterol hypertension and medication management. During the depression screening she did have some positive answers but felt that she was stable overall and did not want to make any changes. She is currently taking paroxetine 20 mg daily and feels like she is stable on this dose Patient Care Team: Saima Hernandez MD as PCP - General Saima Hernandez MD as PCP - [employer]age PCP Review of Systems Constitutional: Negative for chills, fatigue and fever. HENT: Negative for sore throat. Eyes: Negative for visual disturbance. Respiratory: Negative for cough and shortness of breath. Cardiovascular: Negative for chest pain, palpitations and leg swelling. Gastrointestinal: Negative for constipation, diarrhea, nausea and vomiting. Genitourinary: Negative for difficulty urinating, dysuria, frequency, hematuria and urgency. Musculoskeletal: Negative for arthralgias and myalgias. Skin: Negative for rash. Neurological: Negative for dizziness, syncope, weakness, light-headedness and headaches. Medication Documentation Review Audit Reviewed by Saima Hernandez MD (Physician) on 06/20/22 at 1142 Medication Order Taking? Sig Documenting Provider Last Dose Status amLODIPine (Norvasc) 10 mg tablet [id number] Take 1 tablet (10 mg) by mouth once daily. Historical ProviderMD Active ascorbic acid, vitamin C, 500 mg capsule [id number] Take by mouth. Historical ProviderMD Active calcium carbonate 600 mg calcium (1,500 mg) tablet [id number] Take 1 tablet (600 mg) by mouth. Historical ProviderMD Active carvedilol (Coreg) 3.125 mg tablet [id number] 1 tablet (3.125 mg). Historical ProviderMD Active cholecalciferol (Vitamin D-3) 50 mcg (2,000 unit) capsule [id number] Take 1 capsule (50 mcg) by mouth. Historical ProviderMD Active hydroCHLOROthiazide (HYDRODiuril) 50 mg tablet [id number] Yes Take 1 tablet (50 mg) by mouth once daily. Historical MD Juan F Active lisinopril 40 mg tablet [id number] Take 1 tablet (40 mg) by mouth once daily. Historical ProviderMD Active meloxicam (Mobic) 15 mg tablet [id number] Take 1 tablet (15 mg) by mouth once daily. Historical ProviderMD Active omeprazole (PriLOSEC) [address] capsule [id number] Take 1 capsule (40 mg) by mouth once daily. Historical ProviderMD Active PARoxetine (Paxil) 20 mg tablet [id number] Take 1 tablet (20 mg) by mouth once daily. Historical Provider, Active simvastatin (Zocor) 20 mg tablet [id number] Take 1 tablet (20 mg) by mouth once daily. Historical Provider, Active traZODone (Desyrel) 100 mg tablet [id number] Yes Take 1 tablet (100 mg) by mouth once daily at bedtime. Historical Provider, Active zoster vaccine-recombinant adjuvanted (Shingrix) 50 mcg/0.5 mL vaccine [id number] Inject into the shoulder, thigh, or buttocks. Historical Provider, Active Objective Vitals: BP 128/76 Pulse 57 Ht 1.664 m (5' 5.5 ) Wt 73.5 kg (162 lb) SpO2 96% BMI 26.55 kg/m Physical Exam Constitutional: Appearance: Normal appearance. HENT: Head: Normocephalic and atraumatic. Nose: Nose normal. Eyes: Extraocular Movements: Extraocular movements intact. Pupils: Pupils are equal, round, and reactive to light. Cardiovascular: Rate and Rhythm: Normal rate and regular rhythm. Pulmonary: Breath sounds: Normal breath sounds. Abdominal: General: Abdomen is flat. Bowel sounds are normal. Palpations: Abdomen is soft. Musculoskeletal: Right lower leg: No edema. Left lower leg: No edema. Neurological: Mental Status: She is alert. Assessment/Plan Problem List Items Addressed This Visit Circulatory Hypertension Current Assessment & Plan Blood pressure is stable and she was given a refill on her amlodipine Relevant Medications amLODIPine (Norvasc) 10 mg tablet Digestive GERD (gastroesophageal reflux disease) Current Assessment & Plan GERD is stable and she was given a refill on omeprazole 40 mg daily. Other Hyperlipidemia Current Assessment & Plan Patient has high cholesterol and is taking simvastatin 20 mg daily liver enzymes remain normal and cholesterol is at goal as she just completed annual blood work Hypercholesterolemia Current moderate episode of major depressive disorder (CMS/HCC) Current Assessment & Plan Patient feels she is stable with her depression on the paroxetine. 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 Wellness examination Current Assessment & Plan Wellness visit was completed today including review of safety issues. Patient does not have a living will or power of city attorney but is talking to her about completing these documents. CODE STATUS was reviewed and she does want to be a full code. Full code status Current Assessment & Plan CODE STATUS was discussed with the patient today DNR comfort care, DNR Comfort Care arrest and full code were all reviewed with the patient. At this time she would like full code and understands this may include CPR, cardioversion intubation and ventilation if necessary until she is stabilized. Patient is also working on her power of city attorney and living well but they have not been completed yet. When they are completed she was instructed to bring us a copy Alcohol screening Current Assessment & Plan Patient does not drink alcohol and screening was negative. Screening for multiple conditions Current Assessment & Plan Depression screen is positive but she has active depression and it is being treated and she feels she is stable. Other Visit Diagnoses Routine general medical examination at health care facility - Primary Relevant Medications omeprazole (PriLOSEC) [address] oriana Complete blood work was reviewed with the patient today as it was just completed. Mammogram was just completed on June 10 of this month. Bone density is due in October of this year Regular follow-up with me will be in 4 months documented in this encounter [facility] Work Phone: 06-20-2022 Instructions Saima Hernandez MD - 06/20/2022 11:00 AM EDT Follow up Dr Hernandez in 4 months for HTN etc 30 min documented in this encounter [facility] Work Phone: 06-06-2022 Note HNO ID: [id number] Author: Bronson Mccarty MD, PhD Service: ? Author Type: Physician Type: Progress Notes Filed: 06/06/2022 11:18 AM Note Text: NEUROSURGERY FOLLOW UP OFFICE NOTE Bronson Mccarty MD, PhD Date of visit: June 06, 2022 Patient Name: Ms.Shirley Vern Ching Date of : 1945 Current Age: [age] year old Sex: female MRN/E# [id number] Last Office Visit: 04/25/2022 Chief Complaint: Patient presents with: Established Patient SUBJECTIVE: HPI The patient was last evaluated in the office on 04/25/2022 for a fall on 04/17/2022 that resulted in a C2 fracture. She did not require surgical intervention at that time and was placed in a cervical collar. She noted she was doing okay at her last visit. She noted cervical pain that radiated into her left shoulder. She noted a mild headache associated with nausea and vomiting at times. She noted compliance with her cervical collar. It was recommended that she continue with her cervical collar for 3 months. She was referred to a fall clinic. She was to follow up in 6 weeks with repeat imaging, prompting her visit today. Today she states she has continued with cervical pain since her last visit. Today she notes the pain radiates from the right cervical into her shoulder. She notes her headaches are better, but still present. She notes her nausea and vomiting has resolved and feels this was related to her pain medication. She denies any recent falls. She denies being evaluated at the falls clinic. She did not have her cervical collar on at today's visit. She presents for evaluation and plan of care. Symptoms: right sided cervical pain into right shoulder. Headaches that have improved. Smoker: denies Diabetic: denies Anticoagulants / Antiplatelets: denies Occupation: retired PREVIOUS CONSERVATIVE TREATMENTS: Oxycodone Tylenol Mobic Cervical collar PREVIOUS SURGERY: None PAIN EVALUATION 06/06/2022 1057 Pain Level: 7 Pain Location: Neck Description: Aching;Spasm;Stabbing;Stiffness Duration Units: Months Frequency: Intermittent Intervention/Comfort measure: Medication tylenol PAST MEDICAL HISTORY Diagnosis Date Diverticulitis Diverticulosis High cholesterol PAST SURGICAL HISTORY Procedure Laterality Date HYSTERECTOMY HX partial History reviewed. No pertinent family history. ALLERGIES No Known Allergies Current Outpatient Medications Medication Sig Dispense Refill carvedilol (COREG) 3.125 mg tablet calcium carbonate (CALTRATE) 600 mg calcium (1,500 mg) tab Take by mouth. ascorbic acid, vitamin C, (VITAMIN C) 500 mg tablet Take by mouth. Cholecalciferol, Vitamin D3, 50 mcg (2,000 unit) cap Take by mouth. lisinopril (ZESTRIL, PRINIVIL) 40 mg tablet omeprazole (PRILOSEC) 40 mg capsule hydroCHLOROthiazide (HYDRODIURIL, ESIDRIX) 50 mg tablet amLODIPine (NORVASC) 10 mg tablet vitamin A (AQUASOL A) 10,000 unit capsule Take by mouth. traZODone (DESYREL) 100 mg tablet meloxicam (MOBIC) 15 mg tablet simvastatin 20 mg tablet Take 20 mg by mouth daily at bedtime. paroxetine 20 mg tablet Take 20 mg by mouth once daily. No current facility-administered medications for this visit. REVIEW OF SYSTEMS Review of Systems Constitutional: Negative for chills, fatigue and fever. HENT: Negative for congestion and sore throat. Eyes: Negative for discharge, itching and visual disturbance. Respiratory: Negative for cough and shortness of breath. Cardiovascular: Negative for chest pain and palpitations. Gastrointestinal: Negative for constipation, diarrhea, nausea and vomiting. Endocrine: Negative for cold intolerance and heat intolerance. Genitourinary: Negative for difficulty urinating, frequency and urgency. Musculoskeletal: Positive for neck pain. Negative for back pain, gait problem and neck stiffness. Skin: Negative for rash and wound. Allergic/Immunologic: Negative for environmental allergies and food allergies. Neurological: Positive for headaches. Negative for dizziness, weakness, light-headedness and numbness. Hematological: Does not bruise/bleed easily. Psychiatric/Behavioral: Negative for agitation. The patient is not nervous/anxious. OBJECTIVE: BP 149/77 Pulse 52 Ht 5' 8 (1.73m) Wt 162 lb 7.7 oz (73.7kg) SpO2 94% BMI 24.71 kg/(m2). Physical Exam Unfortunately she really was not wearing her collar today. She had normal motor power and sensory function throughout her arms bilaterally. Data Review IMAGING STUDIES: XR Cervical 06/06/2022: in process Assessment and Plan: I did not discern any concerning findings and surely his x-rays today. I was disappointed to hear that she had weaned her collar off. We have asked her to reinitiate wearing her collar we will continue with this until mid July. At that point we will obtain AP and lateral x-rays. If those look good we will proceed with flexion-extension films. Surely is having ongoing ne (more content not included)... [facility] 04-25-2022 Note HNO ID: [id number] Author: Bronson Mccarty MD, PhD Service: ? Author Type: Physician Type: Progress Notes Filed: 05/05/2022 12:46 PM Note Text: NEUROSURGERY CONSULT NOTE Bronson Mccarty MD, PhD Date of visit: April 25, 2022 Patient Name: Ms.Shirley Vern Ching Date of : 1945 Current Age: [age] year old Sex: female MRN/E# [id number] Chief Complaint: Patient presents with: New Patient HISTORY OF PRESENT ILLNESS : The patient is a 76 year old, right handed female with a past medical history of diverticulitis, diverticulosis and HCL who is referred by Dr. Hernandez for neurosurgical evaluation. The patient presented to [place] ED on 04/17/2022 after a fall. She noted she slipped on med and fell backwards hitting her head. She noted pain to the back of her head a midportion of her neck. Advanced imaging noted a C2 fracture. She did not require surgical intervention and was placed in a cervical collar at all times. She was instructed to follow up with neurosurgery outpatient, prompting her visit today. Today she states she has been doing okay since her fall. She notes cervical pain that radiates to her left shoulder. She denies any radiation down her arms. She denies any weakness, numbness or tingling. She notes since she has endorsed a mild headache associated with nausea and vomiting at times. She denies any visual changes, she denies any confusion or forgetfulness. She notes compliance with her cervical collar. She notes taking Tylenol and Mobic without relief. She presents for imaging review, evaluation and plan of care. Smoker: denies Diabetic: denies Anticoagulants / Antiplatelets: denies Occupation: retired PREVIOUS CONSERVATIVE TREATMENTS: Oxycodone Tylenol Mobic Cervical collar PREVIOUS SURGERY: None PAIN EVALUATION 04/25/2022 1446 Pain Level: 3 Pain Location: Head Description: Aching Duration Amount of Time: 1 Duration Units: Weeks Frequency: Continuous PAST MEDICAL HISTORY Diagnosis Date Diverticulitis Diverticulosis High cholesterol PAST SURGICAL HISTORY Procedure Laterality Date HYSTERECTOMY HX partial No family history on file. ALLERGIES No Known Allergies Current Outpatient Medications Medication Sig Dispense Refill lisinopril (ZESTRIL, PRINIVIL) 40 mg tablet omeprazole (PRILOSEC) 40 mg capsule hydroCHLOROthiazide (HYDRODIURIL, ESIDRIX) 50 mg tablet amLODIPine (NORVASC) 10 mg tablet vitamin A (AQUASOL A) 10,000 unit capsule Take by mouth. traZODone (DESYREL) 100 mg tablet meloxicam (MOBIC) 15 mg tablet simvastatin 20 mg tablet Take 20 mg by mouth daily at bedtime. paroxetine 20 mg tablet Take 20 mg by mouth once daily. No current facility-administered medications for this visit. SOCIAL HISTORY: Ledy is retired. She does not smoke. REVIEW OF SYSTEMS Review of Systems Constitutional: Negative for chills, fatigue and fever. HENT: Negative for congestion and sore throat. Eyes: Negative for discharge, itching and visual disturbance. Respiratory: Negative for cough and shortness of breath. Cardiovascular: Negative for chest pain and palpitations. Gastrointestinal: Positive for nausea and vomiting. Negative for constipation and diarrhea. Endocrine: Negative for cold intolerance and heat intolerance. Genitourinary: Negative for difficulty urinating, frequency and urgency. Musculoskeletal: Positive for neck pain and neck stiffness. Negative for back pain and gait problem. Skin: Negative for rash and wound. Allergic/Immunologic: Negative for environmental allergies and food allergies. Neurological: Positive for headaches. Negative for dizziness, weakness, light-headedness and numbness. Hematological: Does not bruise/bleed easily. Psychiatric/Behavioral: Negative for agitation. The patient is not nervous/anxious. OBJECTIVE: BP 142/82 Pulse 59 Resp 16 Ht 5' 8 (1.73m) Wt 160 lb (72.6kg) SpO2 97% BMI 24.33 kg/(m2). PHYSICAL EXAM: General Examination BP 142/82 Pulse (!) 59 Resp 16 Ht 5' 8 (1.727 m) Wt 160 lb (72.6 kg) SpO2 97% BMI 24.33 kg/m? General Exam Neurological Exam Mental Status Ledy was wearing her cervical collar. She is in no distress. Motor Examination and Coordination Neuromuscular Examination Extremity Muscles Upper Extremity Right Left Shoulder abduction 5 5 Elbow flexion 5 5 Elbow extension 5 5 Wrist flexion 5 5 Wrist extension 5 5 Finger flexion/mate chief 5 5 Lower Extremity Right Left Hip flexion 5 5 Knee flexion 5 5 Knee extension 5 5 Ankle plantarflexion 5 5 Ankle dorsiflexion 5 5 Reflexes Deep tendon reflexes graded by [facility] Deep Tendon Reflexes Right Left Biceps 2+ 2+ Triceps 1+ 1+ Brachioradialis 2+ Patellar 2+ 2+ Achilles 0 Data Review IMAGING STUDIES: XR Cervical 04/25/2022: in process CT Cervical Spine 04/17/2022: IMPRESSION: Nondisplaced intra-artic (more content not included)... [facility] 04-25-2022 History of Presen t illness Narrative NEUROSURGERY CONSULT NOTE Bronson Mccarty MD, PhD Date of visit: April 25, 2022 Patient Name: Ms.Shirley Vern Ching Date of : 1945 Current Age: [age] year old Sex: female MRN/E# [id number] Chief Complaint: Patient presents with: New Patient HISTORY OF PRESENT ILLNESS : The patient is a 76 year old, right handed female with a past medical history of diverticulitis, diverticulosis and HCL who is referred by Dr. Hernandez for neurosurgical evaluation. The patient presented to [place] ED on 04/17/2022 after a fall. She noted she slipped on med and fell backwards hitting her head. She noted pain to the back of her head a midportion of her neck. Advanced imaging noted a C2 fracture. She did not require surgical intervention and was placed in a cervical collar at all times. She was instructed to follow up with neurosurgery outpatient, prompting her visit today. Today she states she has been doing okay since her fall. She notes cervical pain that radiates to her left shoulder. She denies any radiation down her arms. She denies any weakness, numbness or tingling. She notes since she has endorsed a mild headache associated with nausea and vomiting at times. She denies any visual changes, she denies any confusion or forgetfulness. She notes compliance with her cervical collar. She notes taking Tylenol and Mobic without relief. She presents for imaging review, evaluation and plan of care. Smoker: denies Diabetic: denies Anticoagulants / Antiplatelets: denies Occupation: retired PREVIOUS CONSERVATIVE TREATMENTS: Oxycodone Tylenol Mobic Cervical collar PREVIOUS SURGERY: None PAIN EVALUATION 04/25/2022 1446 Pain Level: 3 Pain Location: Head Description: Aching Duration Amount of Time: 1 Duration Units: Weeks Frequency: Continuous PAST MEDICAL HISTORY Diagnosis Date Diverticulitis Diverticulosis High cholesterol PAST SURGICAL HISTORY Procedure Laterality Date HYSTERECTOMY HX partial No family history on file. ALLERGIES No Known Allergies Current Outpatient Medications Medication Sig Dispense Refill lisinopril (ZESTRIL, PRINIVIL) 40 mg tablet omeprazole (PRILOSEC) 40 mg capsule hydroCHLOROthiazide (HYDRODIURIL, ESIDRIX) 50 mg tablet amLODIPine (NORVASC) 10 mg tablet vitamin A (AQUASOL A) 10,000 unit capsule Take by mouth. traZODone (DESYREL) 100 mg tablet meloxicam (MOBIC) 15 mg tablet simvastatin 20 mg tablet Take 20 mg by mouth daily at bedtime. paroxetine 20 mg tablet Take 20 mg by mouth once daily. No current facility-administered medications for this visit. SOCIAL HISTORY: Ledy is retired. She does not smoke. REVIEW OF SYSTEMS Review of Systems Constitutional: Negative for chills, fatigue and fever. HENT: Negative for congestion and sore throat. Eyes: Negative for discharge, itching and visual disturbance. Respiratory: Negative for cough and shortness of breath. Cardiovascular: Negative for chest pain and palpitations. Gastrointestinal: Positive for nausea and vomiting. Negative for constipation and diarrhea. Endocrine: Negative for cold intolerance and heat intolerance. Genitourinary: Negative for difficulty urinating, frequency and urgency. Musculoskeletal: Positive for neck pain and neck stiffness. Negative for back pain and gait problem. Skin: Negative for rash and wound. Allergic/Immunologic: Negative for environmental allergies and food allergies. Neurological: Positive for headaches. Negative for dizziness, weakness, light-headedness and numbness. Hematological: Does not bruise/bleed easily. Psychiatric/Behavioral: Negative for agitation. The patient is not nervous/anxious. OBJECTIVE: BP 142/82 Pulse 59 Resp 16 Ht 5' 8 (1.73m) Wt 160 lb (72.6kg) SpO2 97% BMI 24.33 kg/(m^2). PHYSICAL EXAM: General Examination BP 142/82 Pulse (!) 59 Resp 16 Ht 5' 8 (1.727 m) Wt 160 lb (72.6 kg) SpO2 97% BMI 24.33 kg/m General Exam Neurological Exam Mental Status Ledy was wearing her cervical collar. She is in no distress. Motor Examination and Coordination Neuromuscular Examination Extremity Muscles Upper Extremity Right Left Shoulder abduction 5 5 Elbow flexion 5 5 Elbow extension 5 5 Wrist flexion 5 5 Wrist extension 5 5 Finger flexion/mate chief 5 5 Lower Extremity Right Left Hip flexion 5 5 Knee flexion 5 5 Knee extension 5 5 Ankle plantarflexion 5 5 Ankle dorsiflexion 5 5 Reflexes Deep tendon reflexes graded by MRC Deep Tendon Reflexes Right Left Biceps 2+ 2+ Triceps 1+ 1+ Brachioradialis 2+ Patellar 2+ 2+ Achilles 0 Data Review IMAGING STUDIES: XR Cervical 04/25/2022: in process CT Cervical Spine 04/17/2022: IMPRESSION: Nondisplaced intra-articular fracture lateral mass C2 on the right. ASSESSMENT: Ledy has ongoing neck pain and is neurologically intact in the context of her C2 fracture. Her fall seems to have been mechanical in nature. PLAN: I discussed with Ledy a plan to keep her in a collar for a total of at least 3 months. I will plan to reassess her in 6w. We will refer her to a fall clinic in hopes or reducing her risk of further injuries in the future. Attestation: The following portions of the patient's history were reviewed, confirmed, and updated as necessary: allergies, current medications, past family history, past medical history, past social history, past surgical history, problem list, HPI, and ROS obtained by others. Some elements may be copied from a previous office note and have been reviewed/updated where appropriate. All portions reflect current medical decision making from today. The clinical and radiographic findings as well as the risks, benefits and alternatives of treatment have been reviewed in detail with the patient. The patient was advised to call the office if symptoms worsen or new symptoms develop. The patient expressed understanding and is in agreement with plan. Bronson Mccarty MD, PhD This note was partially generated using Unsocial voice recognition system, and there may be some incorrect words, spellings, and punctuation that were not noted in checking the note before saving. documented in this encounter [facility] 09-16-2020 History of Presen t illness Narrative Patient is here today for 4-month follow-up on her osteoarthritis, depression cholesterol and medication management.She notes that about 1 month ago she was walking up a slight hill and fell backwards and hitting her head. She also injured some of her left side and flank. She wonders if she can do anything about her instability. She notes that if she closes her eyes she is very unstable and often has to grab a wall would be very careful about not falling over. Upon reviewing the chart the patient was having problems with gait, stability and falls last fall and I did give her a physical therapy referral in January but she never went. [facility] Work Phone: [facility] Diagnosis Routine general medical examination at health care facility- Primary Routine general medical examination at a health care facility Primary hypertension Unspecified essential hypertension Moderate mixed hyperlipidemia not requiring statin therapy Gastroesophageal reflux disease without esophagitis Esophageal reflux Hypercholesterolemia Pure hypercholesterolemia Current moderate episode of major depressive disorder without prior episode (CMS/HCC) Wellness examination Full code status Alcohol screening Screening for multiple conditions Multiphasic screening documented in this encounter [facility] Work Phone: Evaluation note* Diagnosis Fall, sequela- Primary [facility] Diagnosis Asymptomatic menopausal state- Primary Current moderate episode of major depressive disorder, unspecified whether recurrent (CMS/HCC) Secondary hypertension Other secondary hypertension, unspecified Generalized osteoarthritis of multiple sites Generalized osteoarthrosis, involving multiple sites Hypercholesterolemia Pure hypercholesterolemia Mixed hyperlipidemia Gastroesophageal reflux disease without esophagitis Esophageal reflux Primary insomnia Persistent disorder of initiating or maintaining sleep documented in this encounter [facility] Work Phone: Evaluation note* Diagnosis Primary hypertension- Primary Unspecified essential hypertension Current moderate episode of major depressive disorder, unspecified whether recurrent (CMS/HCC) 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 Mixed hyperlipidemia Gastroesophageal reflux disease without esophagitis Esophageal reflux Generalized osteoarthritis of multiple sites Generalized osteoarthrosis, involving multiple sites Vitamin D deficiency Gait disorder Abnormality of gait Needs flu shot Need for prophylactic vaccination and inoculation against influenza Hypercholesterolemia Pure hypercholesterolemia documented in this encounter [facility] Work Phone: Evaluation note* Diagnosis Preop examination- Primary Unspecified pre-operative examination Total knee replacement status, left Primary hypertension Unspecified essential hypertension Hypercholesterolemia Pure hypercholesterolemia Mixed hyperlipidemia Primary osteoarthritis of left knee documented in this encounter [facility] Work Phone: History of Present illness Narrative* Patient is here for routine follow-up on hypertension, high cholesterol and medication management. * She still has not gotten the Covid vaccine as she has some worries about it but does agree to get the flu shot today. * I did answer all the patient's safety and concerns questions about the Covid vaccine and strongly encouraged her to get it. * Patient says she will consider it and schedule it at a pharmacy if she decides to go ahead with thevaccine series. [facility] Work Phone: History of Present illness Narrative* Patient is here for routine follow-up on hypertension, high cholesterol and medication management. * She still has not gotten the Covid vaccine as she has some worries about it but does agree to get the flu shot today. * I did answer all the patient's safety and concerns questions about the Covid vaccine and strongly encouraged her to get it. * Patient says she will consider it and schedule it at a pharmacy if she decides to go ahead with thevaccine series. [id number] Work Phone: History of Present illness Narrative* Patient is here for routine 4-month follow-up for her hypertension, osteoarthritis, depression, high cholesterol and medication management. * She feels well overall and has no new complaints. [facility] Work Phone: History of Present illness Narrative* Patient is here for routine follow-up on hypertension, cholesterol, insomnia and depression. * She is has an appointment next week with an orthopedic surgeon in [place] for her knees and back as she has limited mobility at this time. * It is for this reason that she is also requesting a handicap placard. * Patient showed up 1 hour late for her mammogram and therefore has to reschedule her appointment I told her that we will be happy to help her reschedule it. 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 Saima Hernandez MD [address] [facility], [facility] [address] [place] [address] Referral ID Status Reason Start Date Expiration Date Visits Requested Visits Authorized [id number] Pending Review Specialty Services Required 02/28/2023 02/28/2024 1 1 [facility] Work Phone: reason for visit Narrative* Diagnostic Procedure Only (Routine) - Closed Specialty Diagnoses / Procedures Referred By Contac t Referred To Contact XR IMAGING Diagnoses Closed nondisplaced fracture of second cervical vertebra, unspecified fracture morphology, sequela Procedures XR CERV GENERAL 2V AP/LAT RADEX SPINE CERVICAL 2 OR 3 VIEWS Bronson Mccarty MD, PhD [address] [address] Xr Imaging Referral ID Status Reason Start Date Expiration Date V isits Requested Visits Authorized [id number] Closed Auto-Generate d Referral 04/25/2022 05/25/2023 1 1 [facility] Family History Mother Name Dates Details Family history of hypertensi on(V17.49, Z82.49) Status:Active Family history of malignant neoplasm of esophagus(V16.0, Z80.0) Status:Active Father Name Dates Details Family history of malignant neoplasm of esophagus(V16.0, Z80.0) Status:Active Mother Name Dates Details Family history of hypertensi on(V17.49, Z82.49) Status:Active Family history of malignant neoplasm of esophagus(V16.0, Z80.0) Status:Active Father Name Dates Details Family history of malignant neoplasm of esophagus(V16.0, Z80.0) Status:Active Mother Name Dates Details Family history of hypertensi on(V17.49, Z82.49) Status:Active Family history of malignant neoplasm of esophagus(V16.0, Z80.0) Status:Active Father Name Dates Details Family history of malignant neoplasm of esophagus(V16.0, Z80.0) Status:Active Mother Name Dates Details Family history of hypertensi on(V17.49, Z82.49) Status:Active Family history of malignant neoplasm of esophagus(V16.0, Z80.0) Status:Active Father Name Dates Details Family history of malignant neoplasm of esophagus(V16.0, Z80.0) Status:Active Mother Name Dates Details Family history of hypertensi on(V17.49, Z82.49) Status:Active Family history of malignant neoplasm of esophagus(V16.0, Z80.0) Status:Active Father Name Dates Details Family history of malignant neoplasm of esophagus(V16.0, Z80.0) Status:Active Mother Name Dates Details Family history of hypertensi on(V17.49, Z82.49) Status:Active Family history of malignant neoplasm of esophagus(V16.0, Z80.0) Status:Active Father Name Dates Details Family history of malignant neoplasm of esophagus(V16.0, Z80.0) Status:Active Mother Name Dates Details Family history of hypertensi on(V17.49, Z82.49) Status:Active Father Name Dates Details Family history of malignant neoplasm of esophagus(V16.0, Z80.0) Status:Active Unknown Family Member Name Dates Details Family history of hypertensi on: Mother(V17.49, Z82.49) Status:Active Family history of malignant neoplasm of esophagus: Father(V16.0, Z80.0) Status:Active Unknown Family Member Name Dates Details Family history of hypertensi on: Mother(V17.49, Z82.49) Status:Active Family history of malignant neoplasm of esophagus: Father(V16.0, Z80.0) Status:Active Unknown Family Member Name Dates Details Family history of hypertensi on: Mother(V17.49, Z82.49) Status:Active Family history of malignant neoplasm of esophagus: Father(V16.0, Z80.0) Status:Active Unknown Family Member Name Dates Details Family history of hypertensi on: Mother(V17.49, Z82.49) Status:Active Family history of malignant neoplasm of esophagus: Father(V16.0, Z80.0) Status:Active Unknown Family Member Name Dates Details Family history of hypertensi on: Mother(V17.49, Z82.49) Status:Active Family history of malignant neoplasm of esophagus: Father(V16.0, Z80.0) Status:Active Unknown Family Member Name Dates Details Family history of hypertensi on: Mother(V17.49, Z82.49) Status:Active Family history of malignant neoplasm of esophagus: Father(V16.0, Z80.0) Status:Active Unknown Family Member Name Dates Details Family history of malignant neoplasm of esophagus: Father(V16.0, Z80.0) Status:Active Family history of hypertensi on: Mother(V17.49, Z82.49) Status:Active Unknown Family Member Name Dates Details Family history of hypertensi on: Mother(V17.49, Z82.49) Status:Active Family history of malignant neoplasm of esophagus: Father(V16.0, Z80.0) Status:Active Unknown Family Member Name Dates Details Family history of hypertensi on: Mother(V17.49, Z82.49) Status:Active Family history of malignant neoplasm of esophagus: Father(V16.0, Z80.0) Status:Active Unknown Family Member Name Dates Details Family history of hypertensi on: Mother(V17.49, Z82.49) Status:Active Family history of malignant neoplasm of esophagus: Father(V16.0, Z80.0) Status:Active Unknown Family Member Name Dates Details Family history of malignant neoplasm of esophagus: Father(V16.0, Z80.0) Status:Active Family history of hypertensi on: Mother(V17.49, Z82.49) Status:Active Unknown Family Member Name Dates Details Family history of hypertensi on: Mother(V17.49, Z82.49) Status:Active Family history of malignant neoplasm of esophagus: Father(V16.0, Z80.0) Status:Active Unknown Family Member Name Dates Details Family history of hypertensi on: Mother(V17.49, Z82.49) Status:Active Family history of malignant neoplasm of esophagus: Father(V16.0, Z80.0) Status:Active Unknown Family Member Name Dates Details Family history of hypertensi on: Mother(V17.49, Z82.49) Status:Active Family history of malignant neoplasm of esophagus: Father(V16.0, Z80.0) Status:Active Unknown Family Member Name Dates Details Family history of hypertensi on: Mother(V17.49, Z82.49) Status:Active Family history of malignant neoplasm of esophagus: Father(V16.0, Z80.0) Status:Active Unknown Family Member Name Dates Details Family history of hypertensi on: Mother(V17.49, Z82.49) Status:Active Family history of malignant neoplasm of esophagus: Father(V16.0, Z80.0) Status:Active Unknown Family Member Name Dates Details Family history of hypertensi on: Mother(V17.49, Z82.49) Status:Active Family history of malignant neoplasm of esophagus: Father(V16.0, Z80.0) Status:Active Unknown Family Member Name Dates Details Family history of hypertensi on: Mother(V17.49, Z82.49) Status:Active Family history of malignant neoplasm of esophagus: Father(V16.0, Z80.0) Status:Active Unknown Family Member Name Dates Details Family history of hypertensi on: Mother(V17.49, Z82.49) Status:Active Family history of malignant neoplasm of esophagus: Father(V16.0, Z80.0) Status:Active Unknown Family Member Name Dates Details Family history of malignant neoplasm of esophagus: Father(V16.0, Z80.0) Status:Active Family history of hypertensi on: Mother(V17.49, Z82.49) Status:Active Unknown Family Member Name Dates Details Family history of hypertensi on: Mother(V17.49, Z82.49) Status:Active Family history of malignant neoplasm of esophagus: Father(V16.0, Z80.0) Status:Active Unknown Family Member Name Dates Details Family history of hypertensi on: Mother(V17.49, Z82.49) Status:Active Family history of malignant neoplasm of esophagus: Father(V16.0, Z80.0) Status:Active Unknown Family Member Name Dates Details Family history of hypertensi on: Mother(V17.49, Z82.49) Status:Active Family history of malignant neoplasm of esophagus: Father(V16.0, Z80.0) Status:Active Chief Complaint Follow up visit for hypertension management. Pt fell a month ago. AC//AMDFollow up visit for hypertension management. AC//AMDFollow up visit for hypertension management. AC//AMD* pt is here for 4 mon f/u for HTN and cholesterol management. * BN//AMD * pt is here for4 mon f/u for HTN and cholesterol management. * BN//AMD Summary Purpose Advance Directives Latest Code Status on File Code Status Date Activated Date Inactivated Comments Full Code 06/20/2022 12:07 PM Question Answer Comments Plan of Care: Code Status Discussion Completed Decision Maker: Patient Latest Code Status on File Code Status Date Activated Date Inactivated Comments Full Code 06/20/2022 12:07 PM Question Answer Comments Plan of Care: Code Status Discussion Completed Decision Maker: Patient Latest Code Status on File Code Status Date Activated Date Inactivated Comments Full Code 06/20/2022 12:07 PM Question Answer Comments Plan of Care: Code Status Discussion Completed Decision Maker: Patient Reason for Referral Specialty Diagnoses / Procedures Referred By Contac t Referred To Contact Diagnoses Fall, sequela Procedures CONSULT TO FALL CLINIC Bronson Mccarty MD, PhD [address] [place] [address] Referral ID Status Reason Start Date Expiration Date Visits Requested Visits Authorized [id number] Ref Not Required PCP Requested Referral 04/25/2022 07/24/2022 1 1 Specialty Diagnoses / Procedures Referred By Contac t Referred To Contact XR IMAGING Diagnoses Closed nondisplaced fracture of second cervical vertebra, unspecified fracture morphology, sequela Procedures XR CERV GENERAL 2V AP/LAT RADEX SPINE CERVICAL 2 OR 3 VIEWS Bronson Mccarty MD, PhD [address] [place] [address] Xr Imaging Referral ID Status Reason Start Date Expiration Date Visits Requested Visits Authorized [id number] Authorized Auto-Generat ed Referral 04/25/2022 05/25/2023 1 1 Referral ID Status Reason Start Date Expiration Date V isits Requested Visits Authorized [id number] Closed Auto-Generate d Referral 04/25/2022 05/25/2023 1 1 Specialty Diagnoses / Procedures Referred By Contac t Referred To Contact Physical Therapy / PHYSICAL THERAPY Diagnoses Fall, sequela Procedures PT REHAB FOLLOW UP ORDER THERAPEUTIC EXERCISES RE, EA 15 MIN. Bronson Mccarty MD, PhD [address] [place] [address] Pepe Nguyen, PT [address] [place] [address] Referral ID Status Reason Start Date Expiration Date V isits Requested Visits Authorized [id number] Closed PCP Requested Referral Auto-Generated Referral 06/25/2022 09/23/2022 1 1 Specialty Diagnoses / Procedures Referred By Contac t Referred To Contact Radiology Diagnoses Asymptomatic menopausal state Procedures XR DEXA bone density Saima Hernandez MD [address] [facility], [address] [place] [address] Referral ID Status Reason Start Date Expiration Date Visits Requested Visits Authorized [id number] Authorized Perform Procedure 10/24/2022 04/22/2023 1 1 Additional Source Comments INFORMATION SOURCE (unrecogn ized section and content) DATE CREATED AUTHOR AUTHOR'S ORGANIZ ATION 08/24/2022 [facility] DATE CREATED AUTHOR AUTHOR'S ORGANIZ ATION 11/14/2022 [facility] DATE CREATED AUTHOR AUTHOR'S ORGANIZ ATION 12/08/2022 [facility] DATE CREATED AUTHOR AUTHOR'S ORGANIZ ATION 03/02/2023 [facility] Ambulatory Source Comments (unrecognize d section and content) In the event this informatio n is protected by the Federal Confidentiality of Alcohol and Drug Abuse Patient Records regulations: The Federal rules restrict any use of the information to criminally investigate or prosecute any alcohol or drug abuse patient.[facility] the event this information is protected by the Federal Confidentiality of Alcohol and Drug Abuse Patient Records regulations: The Federal rules restrict any use of the information to criminally investigate or prosecute any alcohol or drug abuse patient.[facility] the event this information is protected by the Federal Confidentiality of Alcohol and Drug Abuse Patient Records regulations: The Federal rules restrict any use of the information to criminally investigate or prosecute any alcohol or drug abuse patient.[facility] the event this information is protected by the Federal Confidentiality of Alcohol and Drug Abuse Patient Records regulations: The Federal rules restrict any use of the information to criminally investigate or prosecute any alcohol or drug abuse patient.[facility] the event this information is protected by the Federal Confidentiality of Alcohol and Drug Abuse Patient Records regulations: The Federal rules restrict any use of the information to criminally investigate or prosecute any alcohol or drug abuse patient.[facility] Care Teams (unrecognized sec tion and content) Corporate Trust Officer Relationship Specialty Start Date End Date Saima Hernandez MD PCP - General Internal Medicine 06/07/11 Corporate Trust Officer Relationship Specialty Start Date End Date Saima Hernandez MD PCP - General Internal Medicine 06/07/11 Corporate Trust Officer Relationship Specialty Start Date End Date Saima Hernandez MD [address] [facility] [place] [address] PCP - General 10/02/10 Saima Hernandez MD [address] [facility] [place] [address] PCP - [employer] Medicare [employer]vantage PCP 03/27/21 Corporate Trust Officer Relationship Specialty Start Date End Date Saima Hernandez MD PCP - General Internal Medicine 06/07/11 Corporate Trust Officer Relationship Specialty Start Date End Date Saima Hernandez MD PCP - General Internal Medicine 06/07/11 Corporate Trust Officer Relationship Specialty Start Date End Date Saima Hernandez MD [address] [facility] [place] [address] PCP - General 10/02/10 Saima Hernandez MD [address] [facility] [place] [address] PCP - [employer] Medicare Advantage PCP 02/24/21 Corporate Trust Officer Relationship Specialty Start Date End Date Saima Hernandez MD [address] [facility] [place] [address] PCP - General 10/02/10 Saima Hernandez MD [address] [facility] [place] [address] PCP - [employer] Medicare Advantage PCP 02/24/21 Corporate Trust Officer Relationship Specialty Start Date End Date Saima Hernandez MD [address] [facility] [place] [address] PCP - General 10/02/10 Saima Hernandez MD [address] [facility] [place], [place] [id number] PCP - [employer] Medicare Advantage PCP 02/24/21 Reason for Visit (unrecogniz ed section and content) Reason Comments Appointment [facility] [place] 06/24 Reason Comments PT Eval Specialty Diagnoses / Procedures Referred By Paxton t Referred To Contact Diagnoses Fall, sequela Procedures CONSULT TO [facility] Bronson Mccarty MD, PhD [address] [place] [address] Pepe Nguyen, PT [address] [place] [address] Referral ID Status Reason Start Date Expiration Date V isits Requested Visits Authorized [id number] Closed PCP Requested Referral 04/25/2022 07/24/2022 1 1 Reason Comments Missed Appointment FOR RECORDS PERTAINING TO PATIENTS WHO ARE OR HAVE BEEN ENROLLED IN A CHEMICAL DEPENDENCY/SUBSTANCEABUSE PROGRAM, SOME INFORMATION MAY BE OMITTED. This clinical summary was aggregated from multiple sources. Caution should be exercised in using it in the provision of clinical care. This summary normalizes information from multiple sources, and as a consequence, information in this document may materially change the coding, format and clinical context of patient data. In addition, data may be omitted in some cases. CLINICAL DECISIONS SHOULD BE BASED ON THE PRIMARY CLINICAL RECORDS. [facility] [employer] provides no warranty or guarantee of the accuracy or completeness of information in this document.
[2023-05-01 12:45] LABS: Albumin, Serum 3.6 g/dL (3.2-5.0); Anion Gap 5 (5-15); BUN 31 mg/dL (7-18); BUN/Creat Ratio 35.7 RATIO (10-20); Chloride 105 mmol/L (98-107); Creatinine, Serum 0.87 mg/dL (0.55-1.02); EST Glomerular Filtration Rate 67 mL/min (>60); Est Glom Filt Rate - Afr Amer 81 mL/min (>60); Glucose 94 mg/dL (74-106); Potassium 4.4 mmol/L (3.5-5.1); Sodium Level 142 mmol/L (136-145)
== END | disposition home or self-care (01) ==
LOC: LAB 11:43
PROVIDERS: PCP Internal Medicine; Referring Provider Specialist; Visit Provider Specialist
DX: Z01.818 Encounter for other preprocedural examination (principal); M17.12 Unilateral primary osteoarthritis, left knee; I10 Essential (primary) hypertension; E78.00 Pure hypercholesterolemia, unspecified; Z79.899 Other long term (current) drug therapy; Z01.810 Encounter for preprocedural cardiovascular examination
CPT/HCPCS: 36415; 80048; 82040; 85025

== ENCOUNTER 2024-09-16 17:44 | Inpatient (IN) | payer MEDICARE, SELFPAY ==
[2024-09-16] VITALS (7 sets, daily range): BP systolic 120–179; BP diastolic 71–92; PULSE 56–97; RESP 14–18; TEMP 36.6–36.8; O2SAT 97–99; BMI 24.3; BMI 26.4
--- NOTE | 2024-09-16 17:56 | EKG12_ITS ---
Test Reason : Blood Pressure : */* mmHG Vent. Rate : 59 BPM Atrial Rate : 59 BPM P-R Int : 164 ms QRS Dur : 96 ms QT Int : 450 ms P-R-T Axes : 68 14 57 degrees QTcB Int : 445 ms Sinus bradycardia with Premature atrial complexes Nonspecific ST and T wave abnormality Abnormal ECG Confirmed by DUNCAN REBOLLEDO, YOAV ([id number]), health editor SONY ROSENBAUM ([id number]) on 09/20/2024 9:41:25 AM Referred By: Gerry Escalante Confirmed By: YOAV SONG MD
--- NOTE | 2024-09-16 17:56 | CT_ITS ---
EXAM: BRAIN/HEAD WITHOUT CONTRAST; SPINE CERVICAL WITHOUT CONTRAS CLINICAL HISTORY: TRAUMA; PAIN COMPARISON: CT head and cervical spine 04/17/2022 TECHNIQUE: Noncontrast images of the head and cervical spine with multiplanar reconstructions. Dose reduction techniques were used including intermediate exposure control (AEC),iterative reconstruction technique, and/or mA and/or KV dose adjustments based on patient's size. FINDINGS: HEAD: No acute intracranial hemorrhage, extra-axial collection, mass effect or evidence of acute infarct. Moderate generalized brain parenchymal volume loss, and chronic microangiopathic changes. Atherosclerotic vascular calcifications, and age-related mineralization in the bilateral basal ganglia. Absent [place] ocular lenses. Intact skull base and calvarium. Clear sinuses and mastoids. CERVICAL SPINE: No acute fracture or subluxation. Straightening of the cervical lordosis is likely positional and/or degenerative in nature. Moderate multilevel spondylotic changes with varying degrees of disc space narrowing, endplate sclerosis, anterior osteophytosis, multiple small Schmorl's nodes/subchondral cysts, uncovertebral spurring and hypertrophic facet arthropathy. Moderate arthrosis of the right C1-2 lateral mass articulation. No prevertebral soft tissue swelling. Atherosclerotic vascular calcifications. CT/Spine Cervical without Contras IMPRESSION: 1. No acute intracranial or cervical spine traumatic findings. 2. Moderate brain parenchymal volume loss and chronic microangiopathic changes. 3. Moderate multilevel cervical spondylotic changes. Reading Location: [id number]
--- NOTE | 2024-09-16 17:57 | ED.VIS.FALL ---
HPI HPI - Fall History of Present Illness Chief Complaint: Fall Narrative Narrative: 79-year-old female past medical history of hypertension presents via EMS status post fall. She states that she was walking across her kitchen without her walker like her recommends. She has had previous knee surgeries and states that her left knee buckled. She fell, and may have struck the back of her head. However she denies any loss of consciousness. She was unable to stand up secondary to left hip pain. She denies other injuries. Her pain in her left hip is worse with movement. Of note, she relates history that a few years ago she had fallen and struck her head against the garage wall, and was noted to have a neck fracture, and wonders if the pain in the back of her right head is secondary to that. She does not take any blood thinners. She denies other significant past medical history. [facility] Medical History (Updated 09/16/24 @ 20:[address] Natali Barnes MD) History of endometriosis CKD (chronic kidney disease), stage II Anxiety and depression Osteoarthritis GERD (gastroesophageal reflux disease) Diverticulitis High cholesterol Hypertension Home Medications ?Medication ?Instructions ?Recorded ?Last Taken ?Type amlodipine 10 mg tablet 10 mg PO DAILY BP 10/30/16 09/16/24 History hydrochlorothiazide 25 mg tablet 50 mg PO DAILY BP 10/30/16 09/16/24 History lisinopril 20 mg tablet 40 mg PO DAILY BP 10/30/16 09/16/24 History meloxicam 15 mg tablet 15 mg PO DAILY knee, neck, and 10/30/16 09/16/24 History shoulder pain paroxetine HCl 20 mg tablet 20 mg PO DAILY depression 10/30/16 09/16/24 History simvastatin 20 mg tablet 20 mg PO DAILY cholesterol 10/30/16 09/15/24 History trazodone 50 mg tablet 100 mg PO QHS sleep 10/30/16 09/15/24 History Vitamin E (Dl,Tocopheryl Acet) 400 unit PO DAILY supplement 12/05/19 09/16/24 History [Vitamin E] ascorbic acid (vitamin C) 500 mg 500 mg PO DAILY@0800 supplement 12/05/19 09/16/24 History tablet beta carotene 10,000 unit capsule 10,000 unit PO DAILY suppleme 12/05/19 09/16/24 History cholecalciferol (vitamin D3) 50 50 mcg PO DAILY supplement 12/05/19 09/16/24 History mcg (2,000 unit) capsule omeprazole 40 mg capsule,delayed 40 mg PO DAILY GERD 12/05/19 09/14/24 History release carvedilol 3.125 mg tablet 3.125 mg PO DAILY BP 09/16/24 09/16/24 History Allergy/AdvReac Type Severity Reaction Status Date / Time No Known Allergies Allergy Verified 09/16/24 17:45 Family History (Updated 09/16/24 @ 20:[address] Natali Barnes MD) Father Esophageal cancer Mother CAD (coronary artery disease) Heart disease Hypertension Cancer Surgical History (Updated 09/16/24 @ 20:[address] Natali Barnes MD) Status post total left knee replacement S/P appendectomy H/O: hysterectomy Social History (Updated 09/16/24 @ 19:[address] Natali Barnes MD) household members: spouse Smoking Status: Never smoker alcohol intake: current alcohol intake frequency: holidays/special occasions only substance use type: does not use ROS ROS ED ROS Narrative Review of systems positive for head pain in the right occipital area. Left hip pain worse with movement. Unable to ambulate. No prodromal symptoms such as chest pain or shortness of breath. EXAM Physical Exam Narrative Exam Narrative: GCS 15. ABCs intact. HEENT examination shows PERRL, EOMI. Mild tenderness to palpation right occipital scalp. Neck soft and supple without vertebral point tenderness or bony step-off. Cardiovascular examination regular rate and rhythm. Lungs clear to auscultation bilaterally. Abdomen soft and nontender with positive bowel sounds, no guarding or rebound. Inspection of the left hip reveals shortening secondary to flexion at the left knee with outward rotation. Positive tenderness to palpation in the intertrochanteric area and in the left groin. Neurovascularly intact distally with EHL intact and palpable dorsalis pedis pulse. Const Vital Signs: 09/16/24 17:44 09/16/24 17:50 09/16/24 18:49 Temperature 98.2 F Temperature Source Oral Pulse Rate 62 56 L Respiratory Rate 14 16 Respiratory Effort Normal Respiratory Depth Normal Respiratory Pattern Normal Blood Pressure 150/85 H 179/92 H Blood Pressure Mean 106 121 Pulse Ox 98 97 Oxygen Delivery Method Room Air Room Air Room Air 09/16/24 19:49 Temperature Temperature Source Pulse Rate 60 Respiratory Rate 18 Respiratory Effort Respiratory Depth Respiratory Pattern Blood Pressure 148/86 H Blood Pressure Mean 106 Pulse Ox 98 Oxygen Delivery Method Room Air MDM MDM MDM Narrative Medical decision making narrative: Given her fall, suspicion is higher for left hip fracture with closed head injury versus intracranial hemorrhage versus neck fracture. Clinical suspicion is high for hip fracture as she does have pain with logrolling of femur. CT of the brain and C-spine will be obtained to help rule out intracranial hemorrhage. X-rays of the left hip and pelvis obtained to rule out fracture/rule in fracture. She was administered morphine and ondansetron. I will obtain a chest x-ray, EKG, and basic laboratory work preemptively as the patient was unable to ambulate at home, mainly in anticipation for surgery and admission. On my independent interpretation of the x-rays of the pelvis and hip, there is a comminuted intertrochanteric fracture. Chest x-ray interpreted by myself shows no consolidation, pneumothorax or pneumonia. I reviewed the radiology report of the x-ray of the left hip which confirms my independent interpretation. Additionally this goes the same for the chest x-ray and review of the radiology report. While they comment on haziness, clinically I do not think she has pneumonia as she does not have a white count, fever, or cough. EKG was obtained and interpreted by myself independently as sinus bradycardia with PACs at 59 bpm, no acute ST changes, no STEMI. I reviewed her laboratory work and she has normal white count of 7.6 with hemoglobin normal at 12.3, hematocrit slightly low at 36.2, platelet count 252. Electrolyte panel is significant for BUN of 28 and creatinine normal at 0.83. Glucose elevated at 158 but normal anion gap of 11. I discussed the patient with Dr. Jose Maria Best with orthopedics who requested that medicine admit and consult him for possible surgery tomorrow if she is medically cleared. I then discussed the patient with Dr. Barnes for admission to the general medical floor. Patient is in stable condition. History & Record Review Discussion w/independent historian: Patient Additional record(s) reviewed:: Prior ED visit (No prior orthopedics visits) Lab Data Attestation: I reviewed the patient's lab results. Labs: Laboratory Results - last 24 hr 09/16/24 18:00 WBC 7.6 RBC 4.23 Hgb 12.3 Hct 36.2 L MCV 85.6 MCH 29.1 MCHC 34.0 RDW Std Deviation 40.2 RDW Coeff of Natalie 13.0 Plt Count 252 MPV 9.7 Immature Gran % (Auto) 0.300 Neut % (Auto) 63.7 Lymph % (Auto) 25.0 Warren % (Auto) 6.7 Eos % (Auto) 4.0 Baso % (Auto) 0.3 Absolute Neuts (auto) 4.8 Absolute Lymphs (auto) 1.89 Nucleated RBC % 0 Sodium 138 Potassium 3.5 Chloride 98 Carbon Dioxide 29.1 Anion Gap 11 BUN 28 H Creatinine 0.83 Estim Creat Clear Calc 51.45 Est GFR (MDRD) Non-Af 72 BUN/Creatinine Ratio 33.1 H Glucose 158 H Calcium 9.6 Magnesium 1.9 Radiography Chest X-Ray - ED: 1 View, Read by ED Physician and No Acute Disease X-Ray: Left Hip, Read by ED Physician, Read by Radiologist and Fracture Diagnostic Testing: Clinical Impression(s) from Imaging Studies Cervical Spine CT 09/16/24 17:56 IMPRESSION: 1. No acute intracranial or cervical spine traumatic findings. 2. Moderate brain parenchymal volume loss and chronic microangiopathic changes. 3. Moderate multilevel cervical spondylotic changes. Reading Location: [facility] Brain CT 09/16/24 18:18 IMPRESSION: 1. No acute intracranial or cervical spine traumatic findings. 2. Moderate brain parenchymal volume loss and chronic microangiopathic changes. 3. Moderate multilevel cervical spondylotic changes. Reading Location: [facility] Chest X-Ray 09/16/24 18:22 IMPRESSION: Subtle hazy opacity over the right lung may be artifactual, though layering pleural effusion or infection could also appear similar. Reading Location: [facility] Hip/Pelvis X-Ray 09/16/24 18:22 IMPRESSION: Comminuted fracture of the left proximal femur with moderate angulation and involvement of both the lesser and greater trochanter. Recommend Orthopedic Surgery consultation. Reading Location: [id number] Management Discussion w/another healthcare provider: Hospitalist (Dr. Natali Barnes) and Livestock Haulier (Dr. Jose Maria Best, orthopedics) Discharge Plan Dx/Rx/DC Orders Clinical Impression: Closed intertrochanteric fracture of left hip, HTN (hypertension), Fall Disposition Disposition: Acute Care Hospital [facility] Discharge Date/Time: 09/16/24 21:18
[2024-09-16 18:17] LABS: Hematocrit 36.2 % (37-47); Hemoglobin 12.3 g/dL (12.0-15.0); Immature Granulocytes Count 0.020 X10^3/uL (0.0-0.0); Mean Corp Hgb Conc 34.0 g/dL (32-36); Mean Corpuscular Volume 85.6 fL (81-99); Mean Platelet Vol. 9.7 fl (6.2-12.0); NRBC Flagged by Analyzer 0 % (0-5); Platelet Count 252 K/mm3 (150-450); RBC Distribution Width CV 13.0 % (11.6-14.6); RBC Distribution Width SD 40.2 fl (35.1-43.9); Red Blood Count 4.23 M/mm3 (4.2-5.4); White Blood Count 7.6 K/mm3 (4.4-11.0)
--- NOTE | 2024-09-16 18:18 | CT_ITS ---
EXAM: BRAIN/HEAD WITHOUT CONTRAST; SPINE CERVICAL WITHOUT CONTRAS CLINICAL HISTORY: TRAUMA; PAIN COMPARISON: CT head and cervical spine 04/17/2022 TECHNIQUE: Noncontrast images of the head and cervical spine with multiplanar reconstructions. Dose reduction techniques were used including intermediate exposure control (AEC),iterative reconstruction technique, and/or mA and/or KV dose adjustments based on patient's size. FINDINGS: HEAD: No acute intracranial hemorrhage, extra-axial collection, mass effect or evidence of acute infarct. Moderate generalized brain parenchymal volume loss, and chronic microangiopathic changes. Atherosclerotic vascular calcifications, and age-related mineralization in the bilateral basal ganglia. Absent [place] ocular lenses. Intact skull base and calvarium. Clear sinuses and mastoids. CERVICAL SPINE: No acute fracture or subluxation. Straightening of the cervical lordosis is likely positional and/or degenerative in nature. Moderate multilevel spondylotic changes with varying degrees of disc space narrowing, endplate sclerosis, anterior osteophytosis, multiple small Schmorl's nodes/subchondral cysts, uncovertebral spurring and hypertrophic facet arthropathy. Moderate arthrosis of the right C1-2 lateral mass articulation. No prevertebral soft tissue swelling. Atherosclerotic vascular calcifications. CT/Brain/Head without Contrast IMPRESSION: 1. No acute intracranial or cervical spine traumatic findings. 2. Moderate brain parenchymal volume loss and chronic microangiopathic changes. 3. Moderate multilevel cervical spondylotic changes. Reading Location: [id number]
--- NOTE | 2024-09-16 18:22 | RAD_ITS ---
PROCEDURE: HIP, UNI W/ PELVIS 2-3 VIEWS 09/16/2024 REASON FOR EXAM: PAIN, TRAUMA TECHNIQUE: HIP, UNI W/ PELVIS 2-3 VIEWS COMPARISON: CT of the left lower extremity on 04/18/2023 FINDINGS: There is a comminuted fracture of the left proximal femur with moderate angulation and involvement of the greater and lesser trochanters. The femoral head is located within the acetabulum. No additional displaced fracture identified on this limited evaluation. Mild joint space narrowing in both hips. Air-filled loops of bowel in the abdomen. RAD/HIP, UNI W/ Pelvis 2-3 Views IMPRESSION: Comminuted fracture of the left proximal femur with moderate angulation and inv olvement of both the lesser and greater trochanter. Recommend Orthopedic Surgery consultation. Reading Location: [id number]
--- NOTE | 2024-09-16 18:22 | RAD_ITS ---
PROCEDURE: CHEST 1 VIEW (PORTABLE) 09/16/2024 REASON FOR EXAM: CAD TECHNIQUE: Frontal view of the chest. COMPARISON: Chest radiograph 04/17/2022 FINDINGS: Hardware: None Heart: Heart size is moderately enlarged, unchanged. Lungs: There are subtle hazy opacity throughout the right lung, predominantly at the periphery. Bones: Rightward curvature of the thoracic spine. Degenerative changes of the shoulders and spine. RAD/Chest 1 View (Portable) IMPRESSION: Subtle hazy opacity over the right lung may be artifactual, though layering ple ural effusion or infection could also appear similar. Reading Location: [id number]
[2024-09-16 18:41] LABS: Anion Gap 11 (5-15); BUN 28 mg/dL (4-19); BUN/Creat Ratio 33.1 RATIO (10-20); Calcium,Total 9.6 mg/dL (7.6-11.0); Carbon Dioxide 29.1 mmol/L (21.0-32.0); Chloride 98 mmol/L (98-108); Estimated Creatinine Clearance 51.45 ml/min (50-250); Glucose 158 mg/dL (70-99); Potassium 3.5 mmol/L (3.3-5.1)
--- NOTE | 2024-09-16 19:59 | PCM.HP.STD ---
HPI - General General Date of Admission: 09/16/24 Date of Service: 09/16/24 Chief Complaint: Fall, L hip pain/LLE shortened and rotated. HPI Narrative The patient is a 79 y/o F w/ PMHx: HTN, HLD, Anxiety and Depression, GERD, CKD stage II per GFR trending who presents to the [facility] ED on 09/16/24 with history of mechanical fall in the kitchen unfortunately not using her walker landing on her left hip with severe pain and debility following noting pain is severe sharp with shortened and rotated left lower extremity following this prompting immediate EMS call and transition to the hospital for evaluation. In the ED upon arrival patient in the ED bed laying noting pain 7 out of 10 in severity with improvement to only 6 out of 10 following ED pain medication interventions. Workup in the ED included T98.2, heart 62, BP 150/85, respiratory rate 14, 98% room air with most recent repeat vitals heart rate 60, BP 140/86, respiratory rate 18, 98% on room air, CBC with WBC 7.6, hemoglobin 12.3, platelet 252 without marked shift, BMP with BUN/Cr 28/0.83, GFR 72, glucose 158, CT brain and cervical spine CT with no acute intracranial cervical spinal fracture findings, moderate brain parenchymal volume loss and chronic microangiopathic changes, moderate multilevel cervical spondylitic changes, chest x-ray subtle hazy opacity right lung possibly artifactual, plain film of the hip and pelvis with noted comminuted fracture of the left proximal femur with moderate angulation involvement of both the lesser and greater trochanter, EKG with SB with PACs with no acute evidence of ischemia. ED discussed case with Orthopedic surgery, Dr. Best. [facility] Medical History (Updated 09/16/24 @ 20:[address] Natali Barnes MD) History of endometriosis CKD (chronic kidney disease), stage II Anxiety and depression Osteoarthritis GERD (gastroesophageal reflux disease) Diverticulitis High cholesterol Hypertension Home Medications ?Medication ?Instructions ?Recorded ?Last Taken ?Type amlodipine 10 mg tablet 10 mg PO DAILY 10/30/16 Unknown History hydrochlorothiazide 25 mg tablet 50 mg PO DAILY 10/30/16 Unknown History lisinopril 20 mg tablet 40 mg PO DAILY 10/30/16 Unknown History meloxicam 15 mg tablet 15 mg PO DAILY 10/30/16 Unknown History paroxetine HCl 20 mg tablet 20 mg PO DAILY 10/30/16 Unknown History simvastatin 20 mg tablet 20 mg PO DAILY 10/30/16 Unknown History trazodone 50 mg tablet 100 mg PO QHS 10/30/16 Unknown History Vitamin E (Dl,Tocopheryl Acet) 400 unit PO DAILY 12/05/19 Unknown History [Vitamin E] ascorbic acid (vitamin C) 500 mg 500 mg PO DAILY@0800 12/05/19 Unknown History tablet beta carotene 10,000 unit capsule 10,000 unit PO DAILY 12/05/19 Unknown History cholecalciferol (vitamin D3) 50 50 mcg PO DAILY 12/05/19 Unknown History mcg (2,000 unit) capsule omeprazole 40 mg capsule,delayed 40 mg PO DAILY 12/05/19 Unknown History release carvedilol 3.125 mg tablet 3.125 mg PO BID 09/16/24 Unknown History Allergy/AdvReac Type Severity Reaction Status Date / Time No Known Allergies Allergy Verified 09/16/24 17:45 Family History (Updated 09/16/24 @ 20:[address] Natali Barnes MD) Father Esophageal cancer Mother CAD (coronary artery disease) Heart disease Hypertension Cancer Surgical History (Updated 09/16/24 @ 20:[address] Natali Barnes MD) Status post total left knee replacement S/P appendectomy H/O: hysterectomy Social History (Updated 09/16/24 @ 19:[address] Natali Barnes MD) household members: spouse Smoking Status: Never smoker alcohol intake: current alcohol intake frequency: holidays/special occasions only substance use type: does not use ROS ROS Narrative Admission Review of Systems: CONSTITUTIONAL: No weight loss, fever, chills, + weakness or fatigue. HEENT: Eyes: No visual loss, blurred vision, double vision or yellow sclerae. Ears, Nose, Throat: No hearing loss, sneezing, congestion, runny nose or sore throat. SKIN: No rash or itching, lesions, wounds. CARDIOVASCULAR: No chest pain, chest pressure or chest discomfort, palpitations, edema, orthopnea, syncopal events. RESPIRATORY: No shortness of breath, cough or sputum, wheezing, hemoptysis. GASTROINTESTINAL: + Chronic constipation. No anorexia, nausea, vomiting or diarrhea, abdominal pain, melena, BRBPR. GENITOURINARY: No dysuria, frequency, urgency or retention. NEUROLOGICAL: No headache, dizziness, syncope, paralysis, ataxia, numbness or tingling in the extremities, focal weakness, change in bowel or bladder control, seizure. MUSCULOSKELETAL: + muscle, back pain, joint pain or stiffness. HEMATOLOGIC: No anemia. + Easy bleeding/bruising. LYMPHATICS: No enlarged nodes. No history of splenectomy. PSYCHIATRIC: + History of anxiety and depression. ENDOCRINOLOGIC: No reports of sweating, cold or heat intolerance. No polyuria or polydipsia. ALLERGIES: No history of asthma, hives, eczema or rhinitis. Vital Signs Vital Signs Vital Signs: 09/16/24 17:44 09/16/24 17:50 09/16/24 18:49 Temperature 98.2 F Temperature Source Oral Pulse Rate 62 56 L Respiratory Rate 14 16 Respiratory Effort Normal Respiratory Depth Normal Respiratory Pattern Normal Blood Pressure 150/85 H 179/92 H Blood Pressure Mean 106 121 Pulse Ox 98 97 Oxygen Delivery Method Room Air Room Air Room Air 09/16/24 19:49 Temperature Temperature Source Pulse Rate 60 Respiratory Rate 18 Respiratory Effort Respiratory Depth Respiratory Pattern Blood Pressure 148/86 H Blood Pressure Mean 106 Pulse Ox 98 Oxygen Delivery Method Room Air Weight Weight: 150 lb 5.684 oz Body Mass Index (BMI) 24.3 Physical Exam Narrative Physical Examination: General: Awake, alert, oriented x 3, remains cooperative, severely hard of hearing and does not have her hearing aids, laying in ED bed, reporting pain currently improved at 6 out of 10 in severity. Skin: Normal color, normal turgor, no icterus, no cyanosis except occasional stage ecchymoses, abrasion. HEENT: AT/NC, EOMI, PERRLA, MMM, no carotid bruits or JVD noted. Lungs: Mildly diminished, greater bases, proper effort, no rales, ronchi or wheezing. Heart: Mildly bradycardic with regular rhythm; no gallop, rub audible. Abdomen: Soft, NTTP, no marked distention or tympany, hyperactive BS, no appreciated HSM. Extremities: No cyanosis, no clubbing, mild ankle bilateral not markedly pitting edema, peripheral pulses intact, status post fall with left hip fracture with left lower extremity shortened and rotated. Neurological: Patient awake, alert, oriented as noted, cognitive function intact; pupils equally reactive to light and accommodation, cranial nerves grossly normal, moving all 4 extremities except expected limitation left lower extremity given fall with hip fracture, no focal deficits, strength severely globally decreased. Psychiatric: Affect appears fatigued, mildly uncomfortable, no acute evidence of depressive or anxiety feelings but does have underlying history. Results Lab / Micro Data 09/16/24 18:00 09/16/24 18:00 Labs: Laboratory Results - last 24 hr 09/16/24 18:00: WBC 7.6, RBC 4.23, Hgb 12.3, Hct 36.2 L, MCV 85.6, MCH 29.1, MCHC 34.0, RDW Std Deviation 40.2, RDW Coeff of Natalie 13.0, Plt Count 252, MPV 9.7, Immature Gran % (Auto) 0.300, Neut % (Auto) 63.7, Lymph % (Auto) 25.0, [place] % (Auto) 6.7, Eos % (Auto) 4.0, Baso % (Auto) 0.3, Absolute Neuts (auto) 4.8, Absolute Lymphs (auto) 1.89, Nucleated RBC % 0, Sodium 138, Potassium 3.5, Chloride 98, Carbon Dioxide 29.1, Anion Gap 11, BUN 28 H, Creatinine 0.83, Estim Creat Clear Calc 51.45, Est GFR (MDRD) Non-Af 72, BUN/Creatinine Ratio 33.1 H, Glucose 158 H, Calcium 9.6 Imaging Radiology Impression Cervical Spine CT 09/16/24 17:56 IMPRESSION: 1. No acute intracranial or cervical spine traumatic findings. 2. Moderate brain parenchymal volume loss and chronic microangiopathic changes. 3. Moderate multilevel cervical spondylotic changes. Reading Location: [facility] Brain CT 09/16/24 18:18 IMPRESSION: 1. No acute intracranial or cervical spine traumatic findings. 2. Moderate brain parenchymal volume loss and chronic microangiopathic changes. 3. Moderate multilevel cervical spondylotic changes. Reading Location: [facility] Chest X-Ray 09/16/24 18:22 IMPRESSION: Subtle hazy opacity over the right lung may be artifactual, though layering pleural effusion or infection could also appear similar. Reading Location: [id number] Hip/Pelvis X-Ray 09/16/24 18:22 IMPRESSION: Comminuted fracture of the left proximal femur with moderate angulation and involvement of both the lesser and greater trochanter. Recommend Orthopedic Surgery consultation. Reading Location: [id number] Assessment & Plan Assessment/Plan (1) Closed intertrochanteric fracture of left hip: (2) Fall: PLAN: Plan The patient is a 79 y/o F w/ PMHx: HTN, HLD, Anxiety and Depression, GERD, CKD stage II per GFR trending who presents to the [facility] ED on 09/16/24 with history of mechanical fall in the kitchen unfortunately not using her walker landing on her left hip with severe pain and debility following noting pain is severe sharp with shortened and rotated left lower extremity following this prompting immediate EMS call and transition to the hospital for evaluation. #1. General debility, left hip pain s/p mechanical fall w/ comminuted fracture of the left proximal femur with moderate angulation and involvement of both the lesser and greater trochanter: Orthopedic surgery consulted from ED. Will admit to [facility], maintain NPO after midnight for possible intervention, continue gentle IVFs, initiate gonzalez placement, monitor I/Os, frequent positioning, fall precautions, oral/IV pain regimen/anti-emetic regimen as needed. PT/OT following operative intervention. CM consulted for discharge planning. Patient also notes some discomfort to the left knee following recent fall, will obtain plain film especially given this is status post knee replacement status. Per NSQIP patient with low to maximally moderate cardiac periprocedural risk, expected [facility] facility placement given presentation, EKG with sinus bradycardia with PACs with no acute evidence of ischemia, agree with progression to operative intervention. #2. Hyperglycemia without diabetic history: Admission glucose 158, possibly stress response however to be cautious will obtain hemoglobin A1c. #3. Chronic Kidney Disease Stage II per GFR trending: Admission BUN/Cr 28/0.83, GFR 72, baseline renal function primarily 0.6-0.8, repeat BMP in AM. #4. Hypertension: Continue home regimen including lisinopril, Coreg, amlodipine, hydrochlorothiazide with hold parameters as needed, PRN hydralazine. #5. Hyperlipidemia: Will continue patient statin therapy. #6. Anxiety and depression: Will continue patient home paroxetine and nightly trazodone regimen. #7. GERD: Will continue patient on PPI. #8. DVT prophylaxis: SCDs given planned OR as noted. #9. CODE status: Patient HCPOA and living will are not in place but she notes her would be her medical decision-maker if necessary. Discussed CODE status at length including difference between FULL code, DNR-CCA and DNR-CC status. Following discussions about the differences in these status, requested Full Code status. Discussed this concept several times to be sure patient was aware of the specifics given her hard of hearing status. Advanced Care Planning Face to Face Time: 16 minutes. Charges/Coding Visit Charges Inpatient E&M: 48797 Init Hosp L3 Procedures Hospitalists Procedures: 76787 Advncd Care Plan 30 Min
--- NOTE | 2024-09-16 20:20 | RAD_ITS ---
PROCEDURE: KNEE 1 OR 2 VIEWS 09/16/2024 REASON FOR EXAM: FALL, L KNEE PAIN (HAS L BROKEN HIP) TECHNIQUE: KNEE 1 OR 2 VIEWS COMPARISON: No FINDINGS: Status post TKR. Intact hardware. Anatomic alignment. No fracture, dislocation, or joint effusion. RAD/Knee 1 or 2 Views IMPRESSION: No acute injury Reading Location: [place] [id number]
[2024-09-16 20:38] LABS: Magnesium 1.9 mg/dL (1.5-2.2)
--- NOTE | 2024-09-16 20:40 | CASEMGMT ---
Care Management Face to Face with patient for initial transition planning/care coordination assessment in the ED. This inspector automatic typewriter introduced self and role at [facility]. Patient alert and oriented. Patient willing to participate in assessment and is able to answer all questions appropriately. Care providers, pharmacy, and demographics verified. Admitting Diagnosis: Closed intertrochanteric fracture of left hip, Fall Other diagnosis history: HTN, HLD, GERD, CKD stage II PCP: Rachel Frazier at [facility] Specialists: none Preferred Pharmacy: [facility] [address] Insurance: [employer] Medicare Prescription Benefit: yes Living Will/HPOA: none and denies needing info. LNOK: Av and son Cy Living Arrangements: lives with in a 2 story home with 3 steps to enter. Patient denies needing to ever go upstairs. Patient independent with all ADLs/IADLs at baseline Transportation: patient drives DME: wheelchair, walker (wearing O2 in ED, but denies using it at home) HHC: yes in the past, but unknown who it was through SNF/Rehab: [facility] Community Resources: none Behavioral Health History: anxiety and depression per medical records Patient goals: Patient wishes to discharge home, but expresses knowing this may not be possible after surgery. Patient denies any further needs or concerns at this time. Disposition Plan: admission to acute; RN CM/SW to follow for discharge planning needs that may arise. Evelin King, PORT TRAFFIC MANAGER, COST CONTROL SPECIALIST
[2024-09-16] MEDS: 0.9% Normal Saline (1000mL) 1,000 ML 75 ML IV (22:39)
[2024-09-16] MEDS: 0.9% Saline Lock 10 ML Syringe IV (22:39)
[2024-09-16] MEDS: Senna/Docusate Sodium 1 Tablet 2 TABLET PO (22:49)
[2024-09-16] MEDS: Ensure Plus High Protein 120 ML LIQUID PO (22:50)
--- OUTSIDE RECORDS SUMMARY | 2024-09-16 23:18 | XMS RPT_ITS | CCD ---
Author Organization [facility] Providers Care Size Stamper Name Role Phone Saima Mendoza Unavailable Unavailable Ciales, Saima M Unavailable Unavailable Kelly, Saima Unavailable Unavailable Monheim, Aleida Unavailable Unavailable Saima Mendoza MD Unavailable Unavailable Ciales, Saima Porras Unavailable Unavailable Ciales, Saima M Unavailable Unavailable Unavailable Unavailable Unavailable Saima Mendoza MD Primary Care Provider Saima Mendoza MD Primary Care Provider Saima Mendoza MD Unavailable [phone] STEVIE MCCARTY Referring Unavailable KELLY, SAIMA M Primary Care Unavailable KELLY, SAIMA Porrsa Primary Care Unavailable STEVIE MCCARTY Attending Unavailable KELLY, SAIMA M Primary Care Unavailable STEVIE MCCARTY Attending Unavailable STEVIE MCCARTY Referring Unavailable KELLY, SAIMA M Primary Care Unavailable Saima Mendoza MD Unavailable Dr. Saima Mendoza Primary Care Provider [phone] Edwin Elias Attending Provider Dr. Mercedes Lock Referring Provider Dr. Saima Mendoza Primary Care Provider [phone] Edwin Elias Attending Provider Dr. Mercedes Lock Referring Provider KELLY REBOLLEDO, DR SAIMA Porras Primary Care Physician April MENDOZA MD, DR SAIMA Porras Primary Care Unavailcarina LOCK MD, DR MERCDEES Otoole Attending Unavailab gerald MENDOZA MD, DR SAIMA Porras Primary Care Unavailabl e HAYDE MD, DR MERCEDES Otoole Attending Unavailab gerald LOCK MD, DR MERCEDES Otoole Admitting Unavailab gerald CANNON PA-C, EJ W Consulting Unavailable ASHISH BECERRA-JEWELRY BENCH MOLDER, ROLY Larios Consulting Josi Mendoza MD, Saima Porras Primary Care Provider Ciales, Saima Primary Care Unavailable Rubio OLS, Adama Attending Unavailable Mercedes Lock Referring Unavailable Nate Eliasril Attending Unavailable Kelly, Saima Primary Care Unavailable Rubio OLS, Adama Referring Unavailable Ciales, Saima Primary Care Unavailable Rubio OLS, Adama Attending Unavailable Rubio OLS, Adama Referring Unavailable Kelly, Saima Primary Care Unavailable Rubio OLS, Adama Attending Unavailable Mercedes Lock Referring Unavailable Ciales, Saima Primary Care Unavailable Hayde, Mercedes Attending Unavailable Hayde, Mercedes Referring Unavailable Kelly, Saima Primary Care Unavailable Mercedes Lock Attending Unavailable Rubio OLS, Adama Attending Unavailable Kelly, Saima Primary Care Unavailable Gudla Jose DIAZyothi Attending Unavailable Ciales, Saima Primary Care Unavailable Rubio OLS, Adama Attending Unavailable Kelly, Saima Primary Care Unavailable Rubio OLS, Adama Referring Unavailable Kelly, Saima Primary Care Unavailable Rubio OLS, Adama Attending Unavailable KELLY, SAIMA M Primary Care Unavailable KELLY, SAIMA M Primary Care Unavailable KELLY, SAIMA M Referring Unavailable KELLY, SAIMA M Primary Care Unavailable KELLY, SAIMA M Primary Care Unavailable ZAHRAA GUILLE Consulting Unavailable KELLY, SAIMA M Primary Care Unavailable SOEHNLEN, MARIVEL Attending Unavailable SOEHNLEN, MARIVEL Admitting Unavailable KELLY, SAIMA M Primary Care Unavailable SOEHNLEN, MARIVEL Referring Unavailable CialesSaima ramirez MD Primary Care Provider [phone] Saima Mendoza MD Unavailable [phone] Travis REBOLLEDO, Panda Huber Unavailable [phone] KELLY, SAIMA M Attending Unavailable KELLY, SAIMA M Primary Care Unavailable KELLY, SAIMA M Attending Unavailable KELLY, SAIMA M Primary Care Unavailable KELLY, SAIMA M Attending Unavailable KELLY, SAIMA M Primary Care Unavailable KELLY, SAIMA M Attending Unavailable KELLY, SAIMA M Primary Care Unavailable Rachel Frazier MD Primary Care Provider RACHEL FRAZIER Attending Unavailable LIAM RACHEL Primary Care Unavailable RACHEL FRAZIER Referring Unavailable LIAM RACHEL Primary Care Unavailable Boris REBOLLEDO, Gerry Referring Provider [phone] Gerry Escalante MD Emergency Provider [facility] Doctor, Out of Primary Care Provider Josi Barnes MD, Dr. Natali Larios Admit Provider Cameron REBOLLEDO, Dr. Natali Larios Attending Provider Medications Current Medications Medication Drug Class(es) Dates Sig (Normalized) Sig (Original) acetaminophen 1000 mg oral tablet (5 sources) Start: 08-21-2023 End: 09-11-2023 take 1 tablet by mouth once daily Tylenol Dose : 1,000 mg = 2 tab(s), Oral, q8hr, not to exceed 3000 mg/day, 0 Refill(s) Start Date: 08/21/23 Stop Date: 09/11/23 Status: Ordered take 1 tablet by mouth twice ramone ly acetaminophen (TYLENOL) 500 mg tablet Take 500 mg by mouth two times a day. Active Administered Medications Medication Order MAR Action Action Date Dose Rate Site tuberculin skin test, unspecified formulation Given 10/25/2023 0.1 mL tuberculin skin test, unspecified formulation Given 08/28/2023 0.1 mL tuberculin skin test, unspecified formulation Given 10/18/2023 0.1 mL tuberculin skin test, unspecified formulation Given 08/21/2023 0.1 mL (4 sources) Administered Medications Medication Order MAR Action Action Date Dose Rate Site tuberculin skin test, unspecified formulation Given 10/25/2023 0.1 mL tuberculin skin test, unspecified formulation Given 08/28/2023 0.1 mL tuberculin skin test, unspecified formulation Given 10/18/2023 0.1 mL tuberculin skin test, unspecified formulation Given 08/21/2023 0.1 mL amLODIPine 10 mg oral tablet (20 sources) Dihydropyridine Calcium Channel Olimpia Start: 03-13-19 End: 06-24-19 take 1 tablet by mouth once daily Amlodipine 10 MG tablet Active 10 mg PO DAILY October 30, 2016 12:00am End: 04-25-2022 take 2 tablets by mouth once daily amLODIPine 5 mg tablet Take 10 mg by mouth once daily. 0 04/25/2022 Discontinued Comment on above: Take 10 mg by mouth once daily. ascorbic acid 500 mg oral tablet (20 sources) Vitamin C Start: 10-15-2011 take 1 tablet by mouth once daily Ascorbic Acid (Vitamin C) 500 MG tablet Active 500 mg PO DAILY@0800 December 05, 2019 12:00am Start: 10-15-2011 ascorbic acid, vitamin C, 500 mg capsule Take by mouth. 10/15/2011 Active Start: 10-15-2011 ascorbic acid, vitamin C, (VITAMIN C) 500 mg tablet Take by mouth. STOPPED FOR SURGERY 09/30 LAST DOSE 10/15/2011 Active Start: 10-15-2011 Vitamin C 500 MG Oral Capsule Quantity: 0 Refills: 0 Ordered: 15-Oct-2011 Saima Mendoza MD Start : 15-Oct-2011 Active Comment on above: Take by mouth. aspirin 81 mg oral tablet (4 sources) Platelet Aggregation Inhibitor, Nonsteroidal Anti-inflammatory Drug aspirin 81 mg cap Take by mouth once daily. TAKES A PREVENTATIVE/ PACC appoint. 10/08/23, pt states PCP/ Dr. Saima Mendoza does not want her to stop taiking; instructed to inform Dr. Tracy Active beta carotene 83619 unt oral capsule (5 sources) Start: 12-05-2019 take 82624 [IU] by mouth once daily Beta Carotene Active 84909 UNIT PO DAILY December 05, 2019 8:27pm Start: 12-05-2019 take 67856 [IU] by m outh once daily Beta Carotene Active 91099 UNIT PO DAILY December 05, 2019 12:00am Beta Carotene 10,000 UNIT capsule (1 source) Start: 12-05-2019 take 1 capsule by mouth once daily Beta Carotene 10,000 UNIT capsule Active 55877 U PO DAILY December 05, 2019 12:00am Calcium Plus Vitamin D3 600 mg-12.5 mcg (500 intl units) oral capsule (1 source) Start: 08-14-2023 take 1 capsule by mouth once daily at mealtime Calcium Plus Vitamin D3 600 mg-12.5 mcg (500 intl units) oral capsule Dose = 2 cap(s), Oral, qDay, with food, # 120 EA, 0 Refill(s) Start Date: 08/14/23 Status: Ordered carvedilol 3.125 mg oral tablet (20 sources) alpha-Adrenergi c Olimpia, beta-Adrenergic Olimpia Start: 09-16-2024 take 1 tablet by mouth twice daily Carvedilol 3.125 mg tablet Active 3.125 mg PO TWICE A DAY September 16, 2024 12:00am Start: 09-30-2023 take 1 tablet by denise th twice daily carvedilol (Coreg) 3.125 mg tablet Indications: Primary hypertension Take 1 tablet (3.125 mg) by mouth 2 times a day. 180 tablet 3 09/30/2023 Active Start: 08-14-2023 carvedilol 3.1 25 mg oral tablet Dose : 3.125 mg = 1 tab(s), Oral, BIDM, 0 Refill(s) Start Date: 08/14/23 Status: Ordered Start: 06-09-2023 take 1 tablet by denise th twice daily carvedilol (Coreg) 3.125 mg tablet Indications: Primary hypertension Take 1 tablet (3.125 mg) by mouth 2 times a day. 180 tablet 06/09/2023 Active Start: 12-24-2022 carvedilol (Co reg) 3.125 mg tablet Indications: Primary hypertension TAKE 1 TABLET TWICE A DAY 180 tablet 0 12/24/2022 Active Start: 04-15-2022 take 1 tablet by denise th once daily at mealtime carvedilol (COREG) 3.125 mg tablet Take 12.5 mg by mouth two times a day with meals. PACC appoint. Pt states she only takes 1 x day 04/15/2022 Active Start: 12-05-2019 Carvedilol Act eleanor December 05, 2019 8:27pm Start: 12-05-2019 Carvedilol Act eleanor December 05, 2019 12:00am Start: 12-05-2019 Carvedilol Act eleanor December 04, 2019 11:00pm Start: 09-07-2019 carvedilol (Co reg) 3.125 mg tablet 1 tablet (3.125 mg). 0 09/07/2019 Active cholecalciferol 0.05 mg oral capsule (20 sources) Vitamin D Start: 06-05-2017 take 1 capsule by mouth once daily Cholecalciferol (Vitamin D3) 50 MCG capsule Active 50 ug PO DAILY December 05, 2019 12:00am Start: 06-05-2017 Cholecalcifero l, Vitamin D3, 50 mcg (2,000 unit) cap Take by mouth. STOPPED FOR SURGERY LAST DOSE 09/3006/05/2017 Active Start: 06-05-2017 take 1 capsule by [facility] once daily Vitamin D 50 MCG (1999 UT) Oral Capsule TAKE 1 CAPSULE Daily Quantity: 30 Refills: 11 Ordered: 05-Jun-2017 Saima Mendoza MD Start : 05-Jun-2017 Active Comment on above: Take by mouth. hydroCHLOROthiazide 50 mg oral tablet (20 sources) Thiazide Diuretic Start: 2020 take 1 tablet by mouth once daily in the morning hydroCHLOROthiazide (HYDRODIURIL, ESIDRIX) 50 mg tablet Take 50 mg by mouth every morning. 04/15/2022 Active Start: 10-30-2016 take 2 tablets by [facility] once daily Hydrochlorothiazide 25 MG tablet Active 50 mg PO DAILY October 30, 2016 12:00am Start: 10-30-2016 take 50 mg by mouth once daily Hydrochlorothiazide Active 50 MG PO DAILY October 30, 2016 12:00am Immobilizer, Knee (1 source) Start: 08-21-2023 Immobilizer, K nee 1, Topical, Daily, # 1 EA, 0 Refill(s), 68.2 Start Date: 08/21/23 Status: Ordered lisinopril 20 mg oral tablet (20 sources) Angiotensin Converting Enzyme Inhibitor Start: 10-30-2016 take 2 tablets by mouth once daily Lisinopril 20 MG tablet Active 40 mg PO DAILY October 30, 2016 12:00am Start: 10-30-2016 take 40 mg by mouth once daily Lisinopril Active 40 MG PO DAILY October 30, 2016 12:00am Start: 12-06-2013 End: 10-24-2022 take 1 tablet by mouth once daily in the morning lisinopril (ZESTRIL, PRINIVIL) 40 mg tablet Take 40 mg by mouth every morning. 04/15/2022 Active meloxicam 15 mg oral tablet (20 sources) Nonsteroidal Anti-inflammatory Drug Start: 11-21-2015 End: 10-24-2022 take 1 tablet by mouth once daily Meloxicam 15 MG tablet Active 15 mg PO DAILY October 30, 2016 12:00am omeprazole 40 mg delayed release oral capsule (20 sources) Proton Pump Inhibitor Start: 12-22-2018 End: 06-20-2022 take 1 capsule by mouth once daily Omeprazole 40 MG capsule,delayed release(DR/EC) Active 40 mg PO DAILY December 05, 2019 12:00am oxyCODONE hydrochloride 5 mg oral tablet (1 source) Opioid Agonist Start: 08-21-2023 End: 08-28-2023 take 1-2 tablets by mouth every four hours as needed for pain oxyCODONE 5 mg oral tablet ( IMMEDIATE release ) See Instructions, PRN as needed for pain, 1-2 tab(s) Oral q4h, # 30 tab(s), 0 Refill(s), 08/28/23 3:01:00 PM EDT, Acute post-operative pain, 68.2 Start Date: 08/21/23 Stop Date: 08/28/23 Status: Ordered PARoxetine hydrochloride 20 mg oral tablet (20 sources) Serotonin Reuptake Inhibitor Start: 03-13-2011 End: 10-24-2022 PARoxetine (Paxil) 20 mg tablet Indications: Current moderate episode of major depressive disorder, unspecified whether recurrent (Multi) TAKE 1 TABLET DAILY 90 tablet 3 03/18/2024 Active Comment on above: Take 20 mg by mouth once daily. simvastatin 20 mg oral tablet (20 sources) HMG-CoA Reductase Inhibitor Start: 03-04-2011 take 1 tablet by mouth once daily Simvastatin 20 MG tablet Active 20 mg PO DAILY October 30, 2016 12:00am Comment on above: Take 20 mg by mouth daily at bedtime. traZODone hydrochloride 50 mg oral tablet (20 sources) Serotonin Reuptake Inhibitor Start: 10-30-2016 take 2 tablets by mouth at bedtime Trazodone 50 MG tablet Active 100 mg PO AT BEDTIME October 30, 2016 12:00am Start: 10-30-2016 take 100 mg by mouth at bedtim e Trazodone Active 100 MG PO AT BEDTIME October 30, 2016 12:00am Start: 03-13-2011 take 1 tablet by denise th once daily at bedtime traZODone (DESYREL) 100 mg tablet Take 100 mg by mouth daily at bedtime. 02/06/2022 Active End: 04-25-2022 take 1 tablet by mouth once daily at bedtime traZODONE 50 mg tablet Take 50 mg by mouth daily at bedtime. 0 04/25/2022 Discontinued Comment on above: Take 50 mg by mouth daily at bedtime. Vitamin C 500 mg oral tablet (1 source) Start: 08-14-2023 Vitamin C 500 mg oral tablet Dose : 500 mg = 1 tab(s), Oral, qDay, # 30 tab(s), 0 Refill(s) Start Date: 08/14/23 Status: Ordered Vitamin E (Dl,Tocopheryl Acet) (Vitamin E) 400 UNIT capsule (6 sources) Start: 12-05-2019 take 1 capsule by mouth once daily Vitamin E (Dl,Tocopheryl Acet) (Vitamin E) 400 UNIT capsule Active 400 UNIT PO DAILY December 05, 2019 8:27pm Start: 12-05-2019 Vitamin E (Dl, Tocopheryl Acet) (Vitamin E) 400 UNIT capsule Active 400 U PO DAILY December 05, 2019 12:00am Start: 12-05-2019 take 1 capsule by [facility] once daily Vitamin E (Dl,Tocopheryl Acet) (Vitamin E) 400 UNIT capsule Active 400 UNIT PO DAILY December 05, 2019 12:00am Start: 12-05-2019 take 1 capsule by [facility] once daily Vitamin E (Dl,Tocopheryl Acet) (Vitamin E) 400 UNIT capsule Active 400 UNIT PO DAILY December 04, 2019 11:00pm vitamin E 400 intl units oral capsule (1 source) Start: 08-14-2023 vitamin E 400 intl units oral capsule Dose : 400 International_Unit = 1 cap(s), Oral, Daily, 0 Refill(s) Start Date: 08/14/23 Status: Ordered Completed/Discontinued Medications Medication Drug Class(es) Dates Sig (Normalized) Sig (Original) acetaminophen 325 mg / HYDROcodone bitartrate 5 mg oral tablet (11 sources) Opioid Agonist Start: 12-22-2020 End: 09-16-2024 Hydrocodone-Acetami nophen 5-325 mg tablet Discontinued 1 {tbl} PO EVERY 6 HOURS NEEDED as needed for Pain 10 3 0 April 17, 2022 September 16, 2024 6:00pm Fracture of second cervical vertebra Start: 12-22-2020 take 1 tablet by denise every six hours as needed Hydrocodone-Acetaminophen Active 1 TABLE T PO EVERY 6 HOURS NEEDED 10 3 April 17, 2022 acetaminophen 325 mg / oxyCODONE hydrochloride 5 mg oral tablet (1 source) Opioid Agonist Start: 08-19-2012 End: 04-25-2022 take 1 tablet by mouth every four hours as needed oxyCODONE-acetaminophen 5-325 mg tablet Take 1 tablet by mouth every 4 hours as needed. 20 tablet 0 08/19/2012 04/25/2022 Discontinued Comment on above: Take 1 tablet by denise every 4 hours as needed. calcium carbonate 1500 mg oral tablet (20 sources) calcium carbonat e (CALTRATE) 600 mg calcium (1,500 mg) tab Take by mouth. STOPPED FOR SURGERY LAST DOSE 09/30 Active calcium carbonat e 600 mg calcium (1,500 mg) tablet Take 1 tablet (600 mg) by mouth. Active Comment on above: Take by mouth. chlorthalidone 50 mg oral tablet (6 sources) Thiazide-like Diuretic Start: 2017 take 1 tablet by mouth once daily Chlorthalidone 50 MG Oral Tablet TAKE 1 TABLET ONCE DAILY. Quantity: 90 Refills: 3 Saima Mendoza MD Start : 05-Nov-2017 Active Disability Placard (3 sources) Start: 2021 Disability Placard Duration 5 years Quantity: 1 Refills: 0 Ordered: 06-Feb-2022 Saima Mendoza MD Start : 06-Feb-2022 Active hydroCHLOROthiazide 12.5 mg / lisinopril 20 mg oral tablet (7 sources) Thiazide Diuretic, Angiotensin Converting Enzyme Inhibitor Start: 2013 End: 2022 take 1 tablet by mouth once daily Lisinopril/Hydrochlor othiazide (Zestoretic 20/12.5 Tablet) 1 TABLET tablet Discontinued 1 {tbl} PO DAILY May 15, 2013 12:00am December 06, 2013 12:35pm Comment on above: Take 1 tablet by denise once daily. ibuprofen 600 mg oral tablet (3 sources) Nonsteroidal Anti-inflammatory Drug Start: 2017 take 1 tablet by mouth twice daily at mealtime Ibuprofen 600 MG Oral Tablet TAKE 1 TABLET Twice daily with food Quantity: 180 Refills: 3 Saima Mendoza MD Start : 09-Dec-2017 Active raNITIdine 150 mg oral tablet (2 sources) Histamine-2 Receptor Antagonist Start: 2015 take 1 tablet by mouth every twelve hours as needed raNITIdine HCl - 150 MG Oral Tablet TAKE 1 TABLET EVERY 12 HOURS NEEDED. Quantity: 180 Refills: 3 Saima Mendoza MD Start : 18-Apr-2015 Active rivaroxaban 10 mg oral tablet (1 source) Factor Xa Inhibitor Start: 2023 End: 2023 Xarelto 10 mg oral tablet Dose : 10 mg = 1 tab(s), Oral, qDay, Takes Xarelto for 2 weeks postoperatively for DVT prophylaxis. Once finished with Xarelto begin aspirin 81 mg twice daily, 0 Refill(s), 68.2 Start Date: 08/21/23 Stop Date: 09/02/23 Status: Ordered vitamin a 29483 unt oral capsule (9 sources) Vitamin A Start: 2019 vitamin A (AQUASOL A) 10,000 unit capsule Take by mouth. STOPPED 09/30 FOR SURGERY 12/05/2019 Active Start: 12-05-2019 vitamin A (AQU ASOL A) 10,000 unit capsule Take by mouth. 0 12/05/2019 Active Comment on above: Take by mouth. vitamin e d-alpha 400 unt oral capsule (20 sources) Start: 10-15-2011 Vitamin E 400 UNIT Oral Capsule Quantity: 0 Refills: 0 Ordered: 15-Oct-2011 Saima Mendoza MD Start : 15-Oct-2011 Active Start: 10-15-2011 Vitamin E 400 UNIT Oral Capsule Refills: 0 Saima Mendoza MD Start : 15-Oct-2011 Active Problems Active Problems Problem Classification Problem Date Documented Da te Episodic/Chronic Cardiac dysrhythmias (20 sources) Fluttering heart; Translations: [Ventricular flutter] Onset: 3 Resolved: 0 07-02-2022 Chronic Cardiac dysrhythmias (8 sources) Fluttering heart; Translations: [Palpitations] Episodic Complications of surgical procedures or medical care (1 source) Periprosthetic fracture; Translations: [Periprosthetic fracture around internal prosthetic left knee joint, initial encounter] Onset: 4 Episodic Diabetes mellitus without complication (20 sources) Abnormal glucose level; Translations: [Other abnormal glucose] Resolved: 0 12-05-2019 Episodic Disorders of lipid metabolism (20 sources) Hypercholesterolemia; Translations: [Hyperlipidemia] Onset: 3 12-05-2019 Chronic Comment on above: stable as of 012; Diverticulosis and diverticulitis (15 sources) Diverticulitis of colon; Translations: [Diverticula of intestine] 12-05-2019 Chronic E Codes: Fall (20 sources) Accidental fall ; Translations: [Fall from other slipping, tripping, or stumbling] Onset: 3 Resolved: 2 04-17-2022 Episodic Endometriosis (11 sources) Endometriosis (clinical); Translations: [Endometriosis, unspecified] Onset: 3 12-05-2019 Chronic Comment on above: had a hysterectomy Esophageal disorders (20 sources) Gastroesophageal reflux disease; Translations: [Esophageal reflux] Onset: 3 12-05-2019 Chronic Essential hypertension (20 sources) Hypertensive disorder; Translations: [Unspecified essential hypertension] Onset: 3 12-05-2019 Chronic Comment on above: stable as of 012; Fracture of neck of femur (hip) (2 sources) Closed intertrochanteric fracture; Translations: [Displaced intertrochanteric fracture of left femur, initial encounter for closed fracture] 09-16-2024 Episodic Gastrointestinal hemorrhage (11 sources) Lower gastrointestinal hemorrhage; Translations: [Gastrointestinal hemorrhage, unspecified] Onset: 3 12-05-2019 Episodic Hypertension with complications and secondary hypertension (3 sources) Secondary hypertension; Translations: [Secondary hypertension, unspecified] Onset: 3 10-24-2022 Chronic Immunizations and screening for infectious disease (16 sources) Contact with and (suspected) exposure to other viral communicable diseases; Translations: [Exposure to SARS-associated coronavirus] Onset: 4 Resolved: 2 Episodic Intestinal infection (20 sources) Food poisoning; Translations: [Food poisoning, unspecified] Episodic Joint disorders and dislocations; trauma-related (8 sources) Disorder of knee; Translations: [Unspecified internal derangement of unspecified knee] Onset: 4 10-16-2023 Chronic Miscellaneous mental health disorders (2 sources) Primary insomnia; Translations: [Primary insomnia] 10-24-2022 Chronic Mood disorders (20 sources) Depressive disorder; Translations: [Depressive disorder, not elsewhere classified] Onset: 3 06-20-2022 Chronic Nutritional deficiencies (20 sources) Vitamin D deficiency; Translations: [Unspecified vitamin D deficiency] Onset: 3 06-19-2022 Chronic Osteoarthritis (20 sources) Degenerative joint disease involving multiple joints; Translations: [Osteoarthritis of hip] Onset: 3 Resolved: 0 12-05-2019 Chronic Other and unspecified benign neoplasm (11 sources) Polyp of colon; Translations: [Polyp of colon] Onset: 3 12-05-2019 Episodic Other circulatory disease (1 source) Pulse irregular; Translations: [Other specified symptoms and signs involving the circulatory and respiratory systems] 12-11-2023 Episodic Other circulatory disease (2 sources) Other specified symptoms and signs involving the circulatory and respiratory systems; Translations: [Other specified symptoms and signs involving the circulatory and respiratory systems] Onset: 4 Episodic Other connective tissue disease (1 source) History of total knee arthroplasty; Translations: [Presence of left artificial knee joint] 04-28-2023 Chronic Other connective tissue disease (2 sources) Presence of left artificial knee joint; Translations: [Presence of left artificial knee joint] Onset: 4 Chronic Other connective tissue disease (3 sources) Artificial knee joint present; Translations: [Presence of left artificial knee joint] Onset: 4 10-16-2023 Chronic Other fractures (3 sources) Fracture of rib; Translations: [Fracture of one rib, right side, initial encounter for closed fracture] 12-30-2020 Episodic Other fractures (10 sources) Fracture of second cervical vertebra; Translations: [Unspecified displaced fracture of second cervical vertebra, initial encounter for closed fracture] Onset: 3 04-17-2022 Episodic Other fractures (1 source) Closed fracture of second cervical vertebra; Translations: [Unspecified nondisplaced fracture of second cervical vertebra, sequela] Episodic Other fractures (1 source) Unspecified nondisplaced fracture of second cervical vertebra, sequela; Translations: [Closed nondisplaced fracture of second cervical vertebra, unspecified fracture morphology, sequela] Onset: 3 Episodic Other fractures (3 sources) Fracture of right rib; Translations: [Fracture of one rib, right side, initial encounter for closed fracture] 12-30-2020 Episodic Other gastrointestinal disorders (20 sources) H/O: gastrointestinal disease; Translations: [Personal history of other diseases of digestive system] Episodic Other infections; including parasitic (20 sources) H/O: viral illness; Translations: [Personal history of other infectious and parasitic diseases] Resolved: 0 Episodic Comment on above: genital; Other injuries and conditions due to external causes (20 sources) Injury of wrist; Translations: [Elbow, forearm, and wrist injury] Episodic Comment on above: wrist fracture many years agos suspected pinched nerve reported 06/18/2011; Other lower respiratory disease (2 sources) Cough; Translations: [Cough] Episodic Other nervous system disorders (1 source) Other chronic pain; Translations: [Chronic right shoulder pain] Onset: 5 Chronic Other nervous system disorders (1 source) Postoperative pain ; Translations: [Other acute postprocedural pain] Onset: 4 Episodic Other non-traumatic joint disorders (2 sources) Chronic pain of right upper limb; Translations: [Pain in right shoulder] 09-11-2024 Episodic Other non-traumatic joint disorders (1 source) Pain in right shoulder; Translations: [Chronic right shoulder pain] Onset: 5 Episodic Other nutritional; endocrine; and metabolic disorders (7 sources) Body mass index 25-29 - overweight; Translations: [BMI 25.0-25.9,adult] Chronic Other screening for suspected conditions (not mental disorders or infectious disease) (20 sources) Patient encounter status; Translations: [Other screening mammogram] Onset: 3 Resolved: 5 06-20-2022 Episodic Other upper respiratory disease (20 sources) Allergic rhinitis; Translations: [Allergic rhinitis, cause unspecified] Onset: 3 06-19-2022 Chronic Residual codes; unclassified (20 sources) Needs influenza immunization; Translations: [Need for prophylactic vaccination and inoculation against influenza] 02-28-2023 Episodic Residual codes; unclassified (20 sources) For resuscitation; Translations: [Other specified conditions influencing health status] Onset: 3 06-20-2022 Episodic Residual codes; unclassified (1 source) Edema of lower extremity; Translations: [Localized edema] 02-10-2024 Episodic Residual codes; unclassified (1 source) Localized edema; Translations: [Leg edema] Onset: 4 Episodic Residual codes; unclassified (2 sources) Asymptomatic menopausal state; Translations: [Asymptomatic menopausal state] Onset: 5 Episodic Screening and history of mental health and substance abuse codes (20 sources) H/O: depression; Translations: [Personal history of other mental disorders] Onset: 3 Resolved: 5 06-20-2022 Episodic Sprains and strains (11 sources) Sprain of ankle; Translations: [Sprain of unspecified ligament of left ankle, initial encounter] Onset: 4 12-06-2019 Episodic Unclassified (1 source) Chronic pain of right upper limb 09-11-2024 Viral infection (1 source) Viral disease; Translations: [Viral infection] Episodic Past or Other Problems Problem Classification Problem Date Documented Da te Episodic/Chronic External cause codes: Fall (1 source) Accidental fall ; Translations: [Fall from other slipping, tripping, or stumbling] Heart valve disorders (20 sources) Heart murmur; Translations: [Undiagnosed cardiac murmurs] Onset: 06-19-2022 06-19-2022 Episodic Osteoarthritis (4 sources) Osteoarthritis of right hip joint; Translations: [Primary osteoarthritis of right hip] Other bone disease and musculoskeletal deformities (20 sources) Osteopenia; Translations: [Disorder of bone and cartilage, unspecified] Onset: 06-19-2022 06-19-2022 Episodic Other circulatory disease (20 sources) H/O: hypertension; Translations: [Personal history of other diseases of circulatory system] Onset: 07-02-2022 07-02-2022 Episodic Other connective tissue disease (20 sources) History of osteopenia; Translations: [Personal history of other musculoskeletal disorders] Onset: 07-02-2022 07-02-2022 Episodic Other connective tissue disease (20 sources) Recurrent falls ; Translations: [History of fall] Resolved: 06-22-2021 Episodic Other gastrointestinal disorders (20 sources) Personal history of other diseases of the digestive system; Translations: [History of diverticulitis] Resolved: 10-12-2019 Episodic Other injuries and conditions due to external causes (1 source) Other specified injury of left quadriceps muscle, fascia and tendon, initial encounter; Translations: [Other specified injury of left quadriceps muscle, fascia and tendon, initial encounter] Onset: 10-15-2023 Episodic Other lower respiratory disease (20 sources) H/O: respiratory disease; Translations: [Personal history of other diseases of respiratory system] Resolved: 06-22-2021 Episodic Other lower respiratory disease (20 sources) History of clinical finding in subject; Translations: [Personal history of other diseases of respiratory system] Resolved: 10-12-2019 Episodic Other nervous system disorders (18 sources) Abnormal gait; Translations: [Abnormality of gait] Onset: 07-02-2022 07-02-2022 Episodic Other nervous system disorders (1 source) Other acute postprocedural pain; Translations: [Postoperative pain] Onset: 10-15-2023 Episodic Other non-traumatic joint disorders (20 sources) Hip pain; Translations: [Pain in joint, pelvic region and thigh] Resolved: 10-12-2019 Episodic Other non-traumatic joint disorders (2 sources) Pain in left knee; Translations: [Pain in joint, lower leg] Onset: 10-08-2023 10-08-2023 Episodic Other nutritional; endocrine; and metabolic disorders (20 sources) Body mass index 25-29 - overweight; Translations: [Body Mass Index 25.0-25.9, adult] Resolved: 10-12-2019 Episodic Other nutritional; endocrine; and metabolic disorders (18 sources) Overweight in adulthood with body mass index of 25 or more but less than 30; Translations: [Body Mass Index 25.0-25.9, adult] Resolved: 10-12-2019 Episodic Other upper respiratory disease (7 sources) Nasal congestion; Translations: [Other disease of nasal cavity and sinuses] Onset: 07-02-2022 07-02-2022 Episodic Other upper respiratory infections (20 sources) [...] diseases] Resolved: 06-22-2021 Episodic Residual codes; unclassified (20 sources) Menopause present; Translations: [Symptomatic menopausal or female climacteric states] Onset: 07-02-2022 07-02-2022 Episodic Residual codes; unclassified (11 sources) H/O: Disorder; Translations: [Personal history of other specified diseases] Resolved: 06-22-2021 Episodic Residual codes; unclassified (11 sources) History of influenza vaccination; Translations: [Other specified conditions influencing health status] Resolved: 06-22-2021 Episodic Residual codes; unclassified (2 sources) Insomnia, unspecified; Translations: [Insomnia, unspecified] Onset: 06-19-2022 Episodic Spondylosis; intervertebral disc disorders; other back problems (20 sources) Radicular pain; Translations: [Low back pain] Onset: 02-02-2018 Resolved: 10-12-2019 02-02-2018 Episodic Unclassified (20 sources) Procedure started; Translations: [Dietary supplement started] Resolved: 10-12-2019 Unclassified (10 sources) Patient encounter status; Translations: [Visit for screening mammogram] Unclassified (13 sources) History of clinical finding in subject; Translations: [History of cough] Resolved: 06-22-2021 Unclassified (9 sources) Onset: 06-20-2022 Resolved: 08-23-2024 06-20-2022 Urinary tract infections (5 sources) Acute cystitis without hematuria; Translations: [Acute cystitis] Onset: 11-17-2023 Episodic NEGATED: Highlighted row has not occurred!Residual codes; unclassified (20 sources) Disease Episodic Results Test Name Value Interpretation Reference Range Facility Absolute lymphocyte countOrd ered By: Gerry Escalante on 09-16-2024 Lymphocytes Auto (Unsp spec) [#/Vol] 1.89 10*3/uL 0.83-4.51 [facility] Absolute neutrophil countOrd ered By: Gerry Escalante on 09-16-2024 Neutrophils (Bld) [#/Vol] 4.8 10*3/uL 2.0-7.7 [facility] Anion gap in Serum or Plasma Ordered By: Gerry Escalante on 09-16-2024 Anion gap [Moles/Vol] 11 mmol/L 5-15 [facility] Automated lymphocyte count a s percentage of total leukocytesOrdered By: Gerry Escalante on 09-16-2024 Lymphocytes/100 WBC Auto (Unsp spec) 25.0 % 19-41 [facility] BUN/creatinine ratioOrdered By: Gerry Escalante on 09-16-2024 Urea nitrogen/Creatinine [Mass ratio] 33.1 mg/mg High 10-20 [facility] Basophil percentageOrdered B y: Gerry Escalante on 09-16-2024 Basophils/100 WBC (Bld) 0.3 % 0-1 [facility] Carbon dioxide, total [Moles /volume] in Central venous bloodOrdered By: Gerry Escalante on 09-16-2024 CO2 [Moles/Vol] 29.1 mmol/L 21.0-32.0 [facility] Chloride assayOrdered By: Mary Escalante on 09-16-2024 Chloride [Moles/Vol] 98 mmol/L 98-108 [facility] Eosinophil percentageOrdered By: Gerry Escalante on 09-16-2024 Eosinophils/100 WBC (Bld) 4.0 % 0-5 [facility] Erythrocyte distribution wid th ratioOrdered By: Gerry Escalante on 09-16-2024 Erythrocyte distribution width (RBC) [Ratio] 13.0 % 11.6-14.6 [facility] Erythrocyte distribution wid th standard deviationOrdered By: Gerry Escalante on 09-16-2024 Erythrocyte distribution width (RBC) [Ratio] 40.2 fl 35.1-43.9 [facility] Glomerular filtration rate ( GFR) estimation/1.73 sq m using serum, plasma, or whole bOrdered By: Gerry Escalante on 09-16-2024 GFR/1.73 sq M.predicted among non-blacks MDRD (S/P/Bld) [Vol rate/Area] 72 mL/min/{1.73_m2} >60 [facility] Comment on above: mL/min/1.73m2 CKD-EP I Creatinine Equation (2020) Hematocrit Auto (Bld) [Volum e fraction]Ordered By: Gerry Escalante on 09-16-2024 Hematocrit (Bld) [Volume fraction] 36.2 % Low 37-47 [facility] Hemoglobin measurementOrdere d By: Gerry Escalante on 09-16-2024 Hemoglobin (Bld) [Mass/Vol] 12.3 g/dL 12.0-15.0 [facility] Immature granulocytes/100 WB C Auto (Bld)Ordered By: Gerry Escalante on 09-16-2024 Immature granulocytes/100 WBC (Bld) 0.300 % 0.0-0.9 [facility] Comment on above: IG% - Immature Granu locytes (promyelocytes, myelocytes and metamyelocytes) > 1% indicates that a LEFT SHIFT is Present. MCV (mean corpuscular volume ) determinationOrdered By: Gerry Escalante on 09-16-2024 MCV (RBC) [Entitic vol] 85.6 fL 81-99 [facility] Magnesium measurement (mass/ volume)Ordered By: Natali Barnes on 09-16-2024 Magnesium (Unsp spec) [Mass/Vol] 1.9 mg/dL 1.5-2.2 [facility] Mean corpuscular hemoglobin (MCH) determinationOrdered By: Gerry Escalante on 09-16-2024 MCH (RBC) [Entitic mass] 29.1 pg 27.0-32.0 [facility] Mean corpuscular hemoglobin concentration (MCHC) determinationOrdered By: Gerry Escalante on 09-16-2024 MCHC (RBC) [Mass/Vol] 34.0 g/dL 32-36 [facility] Mean platelet volume determi nationOrdered By: Gerry Escalante on 09-16-2024 Platelet mean volume (Bld) [Entitic vol] 9.7 fL 6.2-12.0 [facility] Monocyte percentageOrdered B y: Gerry Escalante on 09-16-2024 Monocytes/100 WBC (Bld) 6.7 % 0-10 [facility] Neutrophil percentageOrdered By: Gerry Escalante on 09-16-2024 Neutrophils/100 WBC (Bld) 63.7 % 47-70 [facility] Nucleated red blood cell per centageOrdered By: Gerry Escalante on 09-16-2024 Nucleated RBC/100 WBC (Bld) [Ratio] 0 % 0-5 [facility] Platelet countOrdered By: Mary Escalante on 09-16-2024 Platelets (Bld) [#/Vol] 252 10*3/uL 150-450 [facility] Potassium measurement (mass/ volume)Ordered By: Gerry Escalante on 09-16-2024 Potassium (Unsp spec) [Mass/Vol] 3.5 mmol/L 3.3-5.1 [facility] RBC Auto (Bld) [#/Vol]Ordere d By: Gerry Escalante on 09-16-2024 RBC (Bld) [#/Vol] 4.23 10*6/uL 4.2-5.4 [facility] Serum creatinine measurement (mass/volume)Ordered By: Gerry Escalante on 09-16-2024 Creatinine [Mass/Vol] 0.83 mg/dL 0.70-1.20 [facility] Serum glucose measurement (m ass/volume)Ordered By: Gerry Escalante on 09-16-2024 Glucose [Mass/Vol] 158 mg/dL High 70-99 [facility] Serum or plasma calcium colette urement (mass/volume)Ordered By: Gerry Escalante on 09-16-2024 Calcium [Mass/Vol] 9.6 mg/dL 7.6-11.0 [facility] Serum or plasma urea nitroge n measurement (mass/volume)Ordered By: Gerry Escalante on 09-16-2024 Urea nitrogen [Mass/Vol] 28 mg/dL High 4-19 [facility] Sodium levelOrdered By: Gerry Escalante on 09-16-2024 Sodium [Moles/Vol] 138 mmol/L 133-145 [facility] White blood cell (WBC) count Ordered By: Gerry Escalante on 09-16-2024 WBC (Bld) [#/Vol] 7.6 10*3/uL 4.4-11.0 [facility] CNOVon 09-11-2024 CNOV [facility] COMPAVIVIAN RAMIREZPABLO Porras ([id number]) 1945 F Date Time Provider Department 09/11/24 10:20 AM RACHEL FRAZIER During your visit today, we recorded the following information about you: Pulse Respiration Blood pressure Weight 71/minute 12/minute 134/82 66.5 kg Height 1.588 m Rachel Frazier MD 09/11/2024 12:33 PM Signed Family Medicine OUTPATIENT VISIT September 10, 2024 CC: Annual physical HPI: 79 year old female patient with a history of HTN on amlodipine 10, coreg 12.5 BID, HCTZ 50, lisinopril 40 HLD on simvastatin last LDL 77 on 08/18 OA on meloxicam 15 and tylenol 1250mg daily S/p left knee replacement 2023 Osteopenia on vitamin D and calcium GERD on omeprazole 40 Depression on paroxetine 20 Primary prevention on asa Insomnia on trazadone Prediabetes last A1c 6 on 10/17. Chronic neck and shoulder pain. Presents to establish care. Depression: Mood is good. Took BP meds this AM but not been using her BP cuff at home. Continues to have left knee weakness without pain despite replacement last year. Notes it is sometimes mildly erythematous. Denies fevers or chills. Did complete PT and this did help with the weakness but did not resolve it. Denies falls. Does take NSAIDS and tylenol which help. Endorses crepitations and clicking. Has not been following with ortho recently. Review of Systems PAIN ASSESSMENT: Negative for pain, history of chronic pain, or current treatment for a chronic pain condition except chronic knee pain and neck pain. GENERAL: No weight loss, or fevers HEENT: Negative for frequent or significant headaches RESPIRATORY: Negative for cough, wheezing, shortness of breath CARDIOVASCULAR: Negative for chest pain, palpitations, PND or orthopnea GI: No nausea, vomiting, or diarrhea or abdominal pain. No MT bleeding or melana : No history of dysuria, frequency, urgency, or change in urine appearance NEURO: No history of headaches, numbness, weakness, or changes to vision or hearing Health maintenance: RSV Vaccine(1 - 1-dose 75+ series) Never done DTaP,Tdap,Td Vaccine(3 - Tdap) due on 06/27/2022 [employer] Ad[employer]age Annual Wellness Visit Never done Allergies: ALLERGIES No Known Allergies Medications: aspirin 81 mg cap Take by mouth once daily. TAKES A PREVENTATIVE/ PACC appoint. 10/08/23, pt states PCP/ Dr. Saima Mendoza does not want her to stop taiking; instructed to inform Dr. Tracy acetaminophen (TYLENOL) 500 mg tablet Take 500 mg by mouth two times a day. carvedilol (COREG) 3.125 mg tablet Take 12.5 mg by mouth two times a day with meals. PACC appoint. Pt states she only takes 1 x day (Patient taking differently: Take 3.125 mg by mouth once daily. PACC appoint. Pt states she only takes 1 x day) calcium carbonate (CALTRATE) 600 mg calcium (1,500 mg) tab Take by mouth. STOPPED FOR SURGERY LAST DOSE 09/30 ascorbic acid, vitamin C, (VITAMIN C) 500 mg tablet Take by mouth. STOPPED FOR SURGERY 09/30 LAST DOSE Cholecalciferol, Vitamin D3, 50 mcg (2,000 unit) cap Take by mouth. STOPPED FOR SURGERY LAST DOSE 09/30 lisinopril (ZESTRIL, PRINIVIL) 40 mg tablet Take 40 mg by mouth every morning. omeprazole (PRILOSEC) 40 mg capsule Take 40 mg by mouth every evening. hydroCHLOROthiazide (HYDRODIURIL, ESIDRIX) 50 mg tablet Take 50 mg by mouth every morning. amLODIPine (NORVASC) 10 mg tablet every morning. vitamin A (AQUASOL A) 10,000 unit capsule Take by mouth. STOPPED 09/30 FOR SURGERY traZODone (DESYREL) 100 mg tablet Take 100 mg by mouth daily at bedtime. meloxicam (MOBIC) 15 mg tablet Take 15 mg by mouth once daily. STOPPED FOR SURGERY 10/01/23 simvastatin 20 mg tablet Take 20 mg by mouth daily at bedtime. paroxetine 20 mg tablet Take 20 mg by mouth every morning. Past Medical History: PAST MEDICAL HISTORY Diagnosis Date Arthritis Depression Diverticulitis Diverticulosis GERD (gastroesophageal reflux disease) H/O cervical fracture High cholesterol Hypertension Insomnia Social History: Social History Tobacco Use Smoking status: Never Passive exposure: Never Substance Use Topics Alcohol use: No Drug use: Never Family History: Family History Problem Relation Age of Onset Heart disease Mother Hypertension Mother Cancer Father Diabetes Sister Diabetes Brother Arthritis Paternal Grandmother Heart disease Paternal Grandfather BP 134/82 Pulse 71 Resp 12 Ht 158.8 cm (5' 2.5) Wt 66.5 kg (146 lb 9.6 oz) SpO2 94% BMI 26.39 kg/m? General: Awake, alert, not in acute distress PRESS SUPERVISOR: Answering questions appropriately. No abnormal posturing or positioning. Speech is normal. Strength grossly intact. RESP: Clear lungs bilateral with good air entry, No increased work of breathing CVS: RRR, No murmur. Pulses 2+. GI: Abdomen is soft, non distended, non tender. No masses or hepatomegaly appreciated. Sk (more content not included)... Normal [facility] XR KNEE 4V AP/PA BOTH+LAT/ME R LTon 09-11-2024 XR KNEE 4V AP/PA BOTH+LAT/MARKUS LT * * *Final Report* * * DATE OF EXAM: Sep 11 2024 11:57AM WOX [id number] - XR KNEE 4V AP/PA BOTH+LAT/MARKUS LT / PROCEDURE REASON: Knee locking, left * * * * Physician Interpretation * * * * PROCEDURE: Left knee INDICATION: Knee locking, left .Trouble with left knee locking up. Hx of 3 left knee surgeries in 2023. TECHNIQUE: XR KNEE 4V AP/PA BOTH+LAT/MARKSU LT COMPARISON: 10/15/2023 FINDINGS: The total knee arthroplasty remains in satisfactory position. No periprosthetic lucency or fracture. There is patella pamela with mild angulation. No joint effusion. IMPRESSION: 1. Stable TKA 2. Patella pamela Accounts Receivable Bookkeeper: [facility] Transcribe Date/Time: Sep 14 2024 7:33A Dictated by : CARMELINA PONCE MD This examination was interpreted and the report reviewed and electronically signed by: CARMELINA PONCE MD on Sep 14 2024 7:35AM EST [id number] Normal [facility] XR SHLDR >/=3V AP/JANIS AP/OTH R RTon 09-11-2024 XR SHLDR >/=3V AP/JANIS AP/OTHR RT * * *Final Report* * * DATE OF EXAM: Sep 11 2024 11:57AM WOX [id number] - XR SHLDR >/=3V AP/AJNIS AP/OTHR RT / PROCEDURE REASON: multiple diagnoses * * * * Physician Interpretation * * * * XR SHLDR >/=3V AP/JANIS AP/OTHR RT Ordering Physician: RACHEL FRAZIER RIGHT SHOULDER RADIOGRAPHS Clinical Statement: Chronic pain Comparison: None FINDINGS: There is no acute fracture or dislocation. The acromioclavicular joint is normally approximated. Advanced degenerative changes are present within the glenohumeral joint with near complete loss of the joint space, subchondral sclerosis and cyst formation with small marginal osteophytes. Reactive cystic changes are noted in the greater tuberosity. Soft tissues are unremarkable. IMPRESSION: Advanced glenohumeral osteoarthritis. Accounts Receivable Bookkeeper: [facility] Transcribe Date/Time: Sep 15 2024 7:21A Dictated by : CRISTIN PERERA MD This examination was interpreted and the report reviewed and electronically signed by: CRISTIN PERERA MD on Sep 15 2024 7:21AM EST [id number] Normal [facility] CBC (H/H, RBC, INDICES, WBC, PLT)on 08-12-2024 Erythrocyte distribution width (RBC) [Ratio] 12.8 % Normal 11.0-15.0 [facility] Comment on above: Performed By: #### 3 6127, 66792, 7600, 81262, 1759 #### [facility] [place] [address] [employer] Manager: Mick Jon MD Hematocrit (Bld) [Volume fraction] 37.8 % Normal 35.0-45.0 [facility] Comment on above: Performed By: #### 3 6127, 65454, 7600, 98381, 1759 #### [facility] [place] [address] [employer] Manager: Mick Jon MD Hemoglobin (Bld) [Mass/Vol] 12.2 g/dL Normal 11.7-15.5 [facility] Comment on above: Performed By: #### 3 6127, 84864, 7600, 71881, 1759 #### [facility] [place] [address] [employer] Manager: Mick Jon MD MCH (RBC) [Entitic mass] 28.6 pg Normal 27.0-33.0 [facility] Comment on above: Performed By: #### 3 61, 10036, 7600, 16898, 1759 #### [facility] [place] [address] [employer] Manager: Mick Jon MD MCHC (RBC) [Mass/Vol] 32.3 g/dL Normal 32.0-36.[address] [facility] Comment on above: Result Comment: For adults, a slight decrease in the calculated MCHC value (in the range of 30 to 32 g/dL) is most likely not clinically significant; however, it should be interpreted with caution in correlation with other red cell parameters and the patient's clinical condition. Performed By: #### 3 61, 88325, 7600, 50680, 175 #### [facility] [place] [address] [employer] Manager: Mick Jon MD MCV (RBC) [Entitic vol] 88.7 fL Normal 80.0-100.0 [facility] Comment on above: Performed By: #### 3 61, 77038, 7600, 50259, 175 #### [facility] [place] [address] [employer] Manager: Mick Jon MD Platelet mean volume (Bld) [Entitic vol] 10.0 fL Normal 7.5-12.5 [facility] Comment on above: Performed By: #### 3 61, 80587, 7600, 85975, 175 #### [facility] [place] [address] [employer] Manager: Mick Jon MD Platelets (Bld) [#/Vol] 249 10*3/uL Normal 140-400 [facility] Comment on above: Performed By: #### 3 61, 37934, 7600, 71203, 1759 #### [facility] [place] [address] [employer] Manager: Mick Jon MD RBC (Bld) [#/Vol] 4.26 10*6/uL Normal 3.80-5.10 [facility] Comment on above: Performed By: #### 3 6127, 35274, 7600, 10734, 1759 #### [facility] of [place] [address] [employer] Manager: Mick Jon MD WBC (Bld) [#/Vol] 6.4 10*3/uL Normal 3.8-10.8 [facility] Comment on above: Performed By: #### 3 6127, 73470, 7600, 31817, 1759 #### [facility] [place] [address] [employer] Manager: Mick Jon MD COMPREHENSIVE METABOLIC PANE L W/ANION GAPon 08-12-2024 Albumin [Mass/Vol] 4.4 g/dL Normal 3.6-5.1 [facility] Comment on above: Performed By: #### 3 6127, 96525, 7600, 30454, 1759 #### [facility] [place] [address] [employer] Manager: Mick Jon MD ALP [Catalytic activity/Vol] 54 U/L Normal 37-153 [facility] Comment on above: Performed By: #### 3 6127, 20841, 7600, 01674, 1759 #### [facility] [place] [address] [employer] Manager: Mick Jon MD ALT [Catalytic activity/Vol] 7 U/L Normal 6-29 [facility] Comment on above: Performed By: #### 3 6127, 21799, 7600, 84614, 1759 #### [facility] [place] [address] [employer] Manager: Mick Jon MD AST [Catalytic activity/Vol] 16 U/L Normal 10-35 [facility] Comment on above: Performed By: #### 3 6127, 96854, 7600, 98084, 1759 #### [facility] of [address], [address] [place] [address] [employer] Service Manager: Mick Jon MD Bilirubin [Mass/Vol] 0.5 mg/dL Normal 0.2-1.2 [facility] Comment on above: Performed By: #### 3 6127, 89307, 7600, 59774, 175 #### [facility] of [address], [address] [place] [address] [employer] Service Manager: Mick Jon MD Calcium [Mass/Vol] 9.6 mg/dL Normal 8.6-10.4 [facility] Comment on above: Performed By: #### 3 6127, 06675, 7600, 90957, 175 #### [facility] of [place] [address] [employer] Manager: Mick Jon MD Chloride [Moles/Vol] 99 mmol/L Normal 98-110 [facility] Comment on above: Performed By: #### 3 6127, 46408, 7600, 49052, 175 #### [facility] [place] [address] [employer] Manager: Mick Jon MD CO2 [Moles/Vol] 33 mmol/L High 20-32 [facility] Comment on above: Performed By: #### 3 6127, 15005, 7600, 05230, 175 #### [facility] of [place] [address] [employer] Manager: Mick Jon MD Creatinine [Mass/Vol] 0.73 mg/dL Normal 0.60-1.[address] [facility] Comment on above: Performed By: #### 3 6127, 92835, 7600, 75852, 175 #### [facility] of [place] [address] [employer] Manager: Mick Jon MD ELECTROLYTE BALANCE 10 mmol/L (calc) Normal 7-17 [facility] Comment on above: Performed By: #### 3 6127, 47495, 7600, 38140, 1759 #### [facility] [address], [address] [place] [address] [employer] Service Manager: Mick Jon MD GFR/1.73 sq M.predicted among non-blacks MDRD (S/P/Bld) [Vol rate/Area] 84 mL/min/{1.73_m2} Normal > OR = 60 [facility] Comment on above: Performed By: #### 3 6127, 91031, 7600, 59028, 1759 #### [facility] [address], [address] [place] [address] [employer] Service Manager: Mick Jon MD Glucose [Mass/Vol] 91 mg/dL Normal 65-99 [facility] Comment on above: Result Comment: Fasting reference interval Performed By: #### 3 6127, 86305, 7600, 30630, 1759 #### [facility] of [address], [address] [place] [address] [employer] Service Manager: Mick Jon MD Potassium [Moles/Vol] 3.8 mmol/L Normal 3.5-5.3 [facility] st [facility] Comment on above: Performed By: #### 3 6127, 79540, 7600, 96957, 175 #### [facility] of [place] [address] [employer] Service Manager: Mick Jon MD Protein [Mass/Vol] 6.9 g/dL Normal 6.1-8.1 [facility] Comment on above: Performed By: #### 3 6127, 03540, 7600, 37118, 175 #### [facility] of [place] [address] [employer] Service Manager: Mick Jon MD Sodium [Moles/Vol] 142 mmol/L Normal 135-146 [facility] Comment on above: Performed By: #### 3 6127, 52424, 7600, 87935, 1759 #### [facility] of [place] [address] [employer] Service Manager: Mick Jon MD Urea nitrogen [Mass/Vol] 30 mg/dL High 7-25 [facility] Comment on above: Performed By: #### 3 6127, 87739, 7600, 56936, 1759 #### [facility] [address], [address] [place] [address] [employer] And Bever[employer] Service Manager: Mick Jon MD LIPID PANEL, [facility] 07-25 Cholesterol [Mass/Vol] 164 mg/dL Normal <200 Qu est Diagnostics Comment on above: Order Comment: FASTI NG:YES FASTING: YES Performed By: #### 3 6127, 88634, 7600, 40011, 1759 #### [facility] [address], [address] [place] [address] [employer] And Bever[employer] Service Manager: Mick Jon MD Cholesterol in HDL [Mass/Vol] 67 mg/dL Normal > OR = 50 [facility] Comment on above: Order Comment: FASTI NG:YES FASTING: YES Performed By: #### 3 6127, 48143, 7600, 74221, 1759 #### [facility] [address], [address] [place] [address] [employer] And Bever[employer] Service Manager: Mick Jon MD Cholesterol in LDL [Mass/Vol] 77 mg/dL Normal [facility] Comment on above: Order Comment: FASTI NG:YES FASTING: YES Result Comment: Refe rence range: <100 Desirable range <100 mg/dL for primary prevention; <70 mg/dL for patients with CHD or diabetic patients with > or = 2 CHD risk factors. LDL-C is now calculated using the Loco calculation, which is a validated novel method providing better accuracy than the Friedewald equation in the estimation of LDL-C. Ap PATHAK et al. CY. 2013;310(19): 6958-3173 (http://education.Dinetouch.GeneAssess/faq/JXK062) Performed By: #### 3 6127, 61045, 7600, 52999, 1759 #### [facility] [address], [address] [place] [address] [employer] And Beverage Service Manager: Mick Jon MD Cholesterol.total/Aruna sterol in HDL [Mass ratio] 2.4 {ratio} Normal <5.0 [facility] Comment on above: Order Comment: FASTI NG:YES FASTING: YES Performed By: #### 3 6127, 49957, 7600, 39527, 1759 #### [facility] [place] [address] [employer] And Bever[employer] Service Manager: Mick Jon MD NON HDL CHOLESTEROL 97 mg/dL (calc) Normal <130 [facility] Comment on above: Order Comment: FASTI NG:YES FASTING: YES Result Comment: For patients with diabetes plus 1 major ASCVD risk factor, treating to a non-HDL-C goal of <100 mg/dL (LDL-C of <70 mg/dL) is considered a therapeutic option. Performed By: #### 3 6127, 15282, 7600, 38217, 1759 #### [facility] [place] [address] [employer] And Bever[employer] Service Manager: Mick Jon MD Triglyceride [Mass/Vol] 115 mg/dL Normal <150 Q u[facility] Diagn[facility] Comment on above: Order Comment: FASTI NG:YES FASTING: YES Performed By: #### 3 6127, 40005, 7600, 52254, 175 #### [facility] [place] [address] [employer] And [employer] Service Manager: Mick Jon MD TSH W/REFLEX TO FT4on 2024 TSH W/REFLEX TO FT4 1.62 mIU/L Normal 0.40-4.50 [facility] Comment on above: Performed By: #### 3 6127, 76103, 7600, 77029, 1759 #### [facility] [place] [address] [employer] And Bever[employer] Service Manager: Mick Jon MD VITAMIN D,25-OH,TOTAL,IAon 0 08-12-2024 VITAMIN D,25-OH,TOTAL,IA 78 ng/mL Normal 30-100 [facility] Comment on above: Result Comment: Rachell min D Status 25-OH Vitamin D: Deficiency: <20 ng/mL Insufficiency: 20 - 29 ng/mL Optimal: > or = 30 ng/mL For 25-OH Vitamin D testing on patients on D2-supplementation and patients for whom quantitation of D2 and D3 fractions is required, the QuestAssureD(TM) 25-OH VIT D, (D2,D3), LC/MS/MS is recommended: order code 69443 (patients >2yrs). See Note 1 Note 1 For additional information, please refer to http://education.NetBase Solutions/faq/XOF584 (This link is being provided for informational/ educational purposes only.) Performed By: #### 3 6127, 84900, 7600, 46599, 1759 #### [facility] [address], [address] [place] [address] Food And Beverage Service Manager: Mick Jon MD US LEG VEIN DVT UNL VAS LABo n 02-10-2024 US LEG VEIN DVT UNL VAS LAB Non-Invasive Vascular Laboratory [facility] Lower Extremity Venous Duplex Unilateral - Left Date of service/time: 02/10/2024 4:37:16 PM Name: LEDY CHING Date of : 1945 Age: 78 years Gender: F Clinical Indication Edema and lower extremity swelling. TECHNIQUE -------- A venous duplex ultrasound examination was performed, including grayscale imaging with compression maneuvers and color Doppler and spectral Doppler examination with augmentation maneuvers and response to respiration of the below mentioned veins. FINDINGS -------- RIGHT SIDE Common femoral vein Doppler: normal flow. Compression: normal. LEFT SIDE Distal external iliac vein Doppler: normal flow. Compression: normal. Common femoral vein Doppler: normal flow. Compression: normal. Femoral vein Doppler: normal flow. Compression: normal. Popliteal vein Doppler: normal flow. Compression: normal. Posterior tibial veins Compression: normal. Peroneal veins Compression: normal. Great saphenous vein Compression: normal. Small saphenous vein Compression: normal. Soleal vein Compression: normal. Gastrocnemius vein Compression: normal. Profunda vein Doppler: normal flow. Compression: normal. IMPRESSION Attempted to call preliminary results to ordering provider at [phone]. Faxed to [phone] RIGHT SIDE - DEEP VEINS Negative for acute deep vein thrombosis in the common femoral vein. LEFT SIDE - DEEP VEINS Negative for acute deep vein thrombosis. LEFT SIDE - SUPERFICIAL VEINS Negative for superficial thrombophlebitis in the great saphenous vein and small saphenous vein. Technologist: Bennie Avila Ordering physician: MARIVEL TRACY Interpreting physician: aJmel Best MD Final CC [employer] [facility] Image : [id number] See Link below for Image Normal [facility] ECG 12-LEADon 12-11-2023 ECG 12-LEAD Ventricular Rate 74 Atrial Rate 74 P-R Interval 152 QRS Duration 88 Q-T Interval 392 QTC Calculation(Bazett) 435 P Hurlock 48 R Hurlock 31 T Hurlock 69 QRS Count 12 Q Onset 226 P Onset 150 P Offset 202 T Offset 422 QTC Fredericia 420 Diagnosis Sinus rhythm with Premature atrial complexes Otherwise normal ECG No previous ECGs available Confirmed by Carmelina Enriquez ([id number]) on 12/17/2023 9:49:31 PM Normal [facility] Urinalysis complete W Reflex Culture panel (U)on 11-17-2023 Appearance (U) Clear Normal Clear [facility] Comment on above: Performed By: #### 5 8077-9 #### ELO Larios ([id number]) [facility] ([facility]) [address] [place] [address] Bilirubin (U) [Mass/Vol] Negative Normal NEGATIVE [facility] Comment on above: Performed By: #### 5 8077-9 #### ELO Larios ([id number]) [facility] ([facility]) [address] [place] [address] Color (U) Yellow Normal Light-Yello w, Yellow, Dark-Yellow [facility] Comment on above: Performed By: #### 5 8077-9 #### ELO Larios ([id number]) [facility] ([facility]) [address] [place] [address] 61192 Glucose Auto test strip (U) [Mass/Vol] Normal Normal Normal [facility] Comment on above: Performed By: #### 5 8077-9 #### ELO RANDALL L ([id number]) [facility] ([facility]) [address] [place] [address] 46097 Ketones (U) [Mass/Vol] Negative Normal NEGATIVE [facility] Comment on above: Performed By: #### 5 8077-9 #### ELO Larios ([id number]) [facility] ([facility]) [address] [place] [address] 35021 Leukocyte esterase Auto test strip Ql (U) Negative Normal NEGATIVE [facility] Comment on above: Performed By: #### 5 8077-9 #### ELO Larios ([id number]) [facility] ([facility]) [address] [place] [address] 71891 Nitrite Auto test strip Ql (U) Negative Normal NEGATIVE [facility] Comment on above: Performed By: #### 5 8077-9 #### ELO Larios ([id number]) [facility] ([facility]) [address] [place] [address] 76535 pH (U) 6.0 [pH] Normal 5.0, 5.5, 6.0, 6.5, 7.0, 7.5, 8.0 [facility] Comment on above: Performed By: #### 5 8077-9 #### ELO Larios ([id number]) [facility] ([facility]) [address] [place] [address] 29759 Protein (U) [Mass/Vol] 10 (TRACE) Normal NEGAT ELEANOR, 10 (TRACE), 20 (TRACE) [facility] Comment on above: Performed By: #### 5 8077-9 #### ELO Larios ([id number]) [facility] ([facility]) [address] [place] [address] 28316 RBC (U) [#/Vol] Negative Normal NEGATIVE [facility] Comment on above: Performed By: #### 5 8077-9 #### ELO Larios ([id number]) [facility] ([facility]) [address] [place] [address] 73401 RBC Auto (Urine sed) [#/Area] NONE Normal NONE, 1-2, 3-5 [facility] Comment on above: Performed By: #### 5 8077-9 #### ELO Larios ([id number]) [facility] ([facility]) [address] [place] [address] 61890 Specific gravity (U) [Rel density] 1.028 Normal 1.005-1.035 [facility] Comment on above: Performed By: #### 5 8077-9 #### ELO Larios ([id number]) [facility] ([facility]) [address] [place] [address] 65144 Urobilinogen (U) [Mass/Vol] Normal Normal Normal [facility] Comment on above: Performed By: #### 5 8077-9 #### ELO Larios ([id number]) [facility] ([facility]) [address] [place] [address] 08288 WBC Auto (Urine sed) [#/Area] NONE Normal 1-5, NONE [facility] Comment on above: Performed By: #### 5 8077-9 #### ELO Larios ([id number]) [facility] ([facility]) [address] [place] [address] 56520 Basic Metabolic Profile (BMP )on 10-28-2023 BUN/CRE 33.7 RATIO High 10-20 [facility] Comment on above: Order Comment: 211.1 Performed By: #### L 500.2500, L100.0500 #### [facility] [address] [place], [place], [address] CA,Total 9.0 mg/dL Normal 8.5-10.1 [facility] Comment on above: Order Comment: 211.1 Performed By: #### L 500.2500, L100.0500 #### [facility] [address] [place], [address] Chloride [Moles/Vol] 104 mmol/L Normal 98-107 [facility] Comment on above: Order Comment: 211.1 Performed By: #### L 500.2500, L100.0500 #### [facility] [address] [place], [address] CO2 [Moles/Vol] 29.0 mmol/L Normal 21.0-32.0 [facility] Comment on above: Order Comment: 211.1 Performed By: #### L 500.2500, L100.0500 #### [facility] [address] [place], [address] Creatinine [Mass/Vol] 0.89 mg/dL Normal 0.55-1.02 [facility] Comment on above: Order Comment: 211.1 Result Comment: The validity of the calculated GFR GFRAA in patients over 70 years has not been determined. Clinical correlation is essential. Performed By: #### L 500.2500, L100.0500 #### [facility] [address] [place], [address] EST GFR - AA 79 mL/min Normal >60 [facility] Comment on above: Order Comment: 211.1 Result Comment: Afri can Grenadian GFR Calc Performed By: #### L 500.2500, L100.0500 #### [facility] [address] [place], [address] GAP 6 Normal 5-15 [facility] Comment on above: Order Comment: 211.1 Performed By: #### L 500.2500, L100.0500 #### [facility] [address] [place], [address] GFR/1.73 sq M.predicted among non-blacks MDRD (S/P/Bld) [Vol rate/Area] 65 mL/min/{1.73_m2} Normal >60 [facility] Comment on above: Order Comment: 211.1 Result Comment: Non- GFR Calc Performed By: #### L 500.2500, L100.0500 #### [facility] [address] [place], [address] Glucose [Mass/Vol] 87 mg/dL Normal 74-106 [facility] Comment on above: Order Comment: 211.1 Performed By: #### L 500.2500, L100.0500 #### [facility] [address] [place], [address] Potassium [Moles/Vol] 4.1 mmol/L Normal 3.5-5.1 [facility] Comment on above: Order Comment: 211.1 Performed By: #### L 500.2500, L100.0500 #### [facility] [address] [place], [address] Sodium [Moles/Vol] 139 mmol/L Normal 136-145 [facility] Comment on above: Order Comment: 211.1 Performed By: #### L 500.2500, L100.0500 #### [facility] [address] [place], [address] Urea nitrogen [Mass/Vol] 30 mg/dL High 7-18 [facility] Comment on above: Order Comment: 211.1 Performed By: #### L 500.2500, L100.0500 #### [facility] [address] [place], [address] CBC-Complete Blood Cnt No Di ffon 10-28-2023 Erythrocyte distribution width (RBC) [Ratio] 14.0 % Normal 11.6-14.6 [facility] Comment on above: Order Comment: 211.1 Performed By: #### L 500.2500, L100.0500 #### [facility] [address] [place], [address] Hematocrit (Bld) [Volume fraction] 33.2 % Low 37-47 [facility] Comment on above: Order Comment: 211.1 Performed By: #### L 500.2500, L100.0500 #### [facility] [address] [place], [address] Hemoglobin (Bld) [Mass/Vol] 10.5 g/dL Low 12.0-15.0 [facility] Comment on above: Order Comment: 211.1 Performed By: #### L 500.2500, L100.0500 #### [facility] [address] [place], [address] MCH (RBC) [Entitic mass] 27.6 pg Normal 27.0-32.0 [facility] Comment on above: Order Comment: 211.1 Performed By: #### L 500.2500, L100.0500 #### [facility] [address] [place], [address] MCHC (RBC) [Mass/Vol] 31.6 g/dL Low 32-36 [facility] Comment on above: Order Comment: 211.1 Performed By: #### L 500.2500, L100.0500 #### [facility] [address] [place], [address] MCV (RBC) [Entitic vol] 87.4 fL Normal 81-99 [facility] Comment on above: Order Comment: 211.1 Performed By: #### L 500.2500, L100.0500 #### [facility] [address] [place], [address] Platelet mean volume (Bld) [Entitic vol] 10.0 fL Normal 6.2-12.0 [facility] Comment on above: Order Comment: 211.1 Performed By: #### L 500.2500, L100.0500 #### [facility] [address] [place], [address] Platelets (Bld) [#/Vol] 327 10*3/uL Normal 150-450 [facility] Comment on above: Order Comment: 211.1 Performed By: #### L 500.2500, L100.0500 #### [facility] [address] [place], [address] RBC (Bld) [#/Vol] 3.80 10*6/uL Low 4.2-5.4 [facility] Comment on above: Order Comment: 211.1 Performed By: #### L 500.2500, L100.0500 #### [facility] [address] [place], [address] RDW SD 44.6 fl High 35.1-43.9 [facility] Comment on above: Order Comment: 211.1 Performed By: #### L 500.2500, L100.0500 #### [facility] [address] [place], [address] WBC (Bld) [#/Vol] 7.2 10*3/uL Normal 4.4-11.0 [facility] Comment on above: Order Comment: 211.1 Performed By: #### L 500.2500, L100.0500 #### [facility] [address] [place], [address] Basic Metabolic Profile (BMP )on 10-20-2023 BUN/CRE 26.6 RATIO High 10-20 [facility] Comment on above: Order Comment: 211.1 Performed By: #### L 500.2500, L100.0500 #### [facility] [address] [place], [address] CA,Total 8.9 mg/dL Normal 8.5-10.1 [facility] Comment on above: Order Comment: 211.1 Performed By: #### L 500.2500, L100.0500 #### [facility] [address] [place], [address] Chloride [Moles/Vol] 98 mmol/L Normal 98-107 [facility] Comment on above: Order Comment: 211.1 Performed By: #### L 500.2500, L100.0500 #### [facility] [address] [place], [address] CO2 [Moles/Vol] 34.0 mmol/L High 21.0-32.0 [facility] Comment on above: Order Comment: 211.1 Performed By: #### L 500.2500, L100.0500 #### [facility] [address] [place], [address] Creatinine [Mass/Vol] 0.86 mg/dL Normal 0.55-1.02 [facility] Comment on above: Order Comment: 211.1 Result Comment: The validity of the calculated GFR GFRAA in patients over 70 years has not been determined. Clinical correlation is essential. Performed By: #### L 500.2500, L100.0500 #### [facility] [address] [place], [address] EST GFR - AA 82 mL/min Normal >60 [facility] Comment on above: Order Comment: 211.1 Result Comment: Afri can Grenadian GFR Calc Performed By: #### L 500.2500, L100.0500 #### [facility] [address] [place], [address] GAP 7 Normal 5-15 [facility] Comment on above: Order Comment: 211.1 Performed By: #### L 500.2500, L100.0500 #### [facility] [address] [place], [address] GFR/1.73 sq M.predicted among non-blacks MDRD (S/P/Bld) [Vol rate/Area] 67 mL/min/{1.73_m2} Normal >60 [facility] Comment on above: Order Comment: 211.1 Result Comment: Non- GFR Calc Performed By: #### L 500.2500, L100.0500 #### [facility] [address] [place], [address] Glucose [Mass/Vol] 92 mg/dL Normal 74-106 [facility] Comment on above: Order Comment: 211.1 Performed By: #### L 500.2500, L100.0500 #### [facility] [address] [place], [address] Potassium [Moles/Vol] 3.2 mmol/L Low 3.5-5.1 [facility] Comment on above: Order Comment: 211.1 Performed By: #### L 500.2500, L100.0500 #### [facility] [address] [place], [address] Sodium [Moles/Vol] 139 mmol/L Normal 136-145 [facility] Comment on above: Order Comment: 211.1 Performed By: #### L 500.2500, L100.0500 #### [facility] [address] [place], [address] Urea nitrogen [Mass/Vol] 23 mg/dL High 7-18 [facility] Comment on above: Order Comment: 211.1 Performed By: #### L 500.2500, L100.0500 #### [facility] [address] [place], [address] CBC-Complete Blood Cnt No Di ffon 10-20-2023 Erythrocyte distribution width (RBC) [Ratio] 13.6 % Normal 11.6-14.6 [facility] Comment on above: Order Comment: 211.1 Performed By: #### L 500.2500, L100.0500 #### [facility] [address] [place], [address] Hematocrit (Bld) [Volume fraction] 32.3 % Low 37-47 [facility] Comment on above: Order Comment: 211.1 Performed By: #### L 500.2500, L100.0500 #### [facility] [address] [place], [address] Hemoglobin (Bld) [Mass/Vol] 10.2 g/dL Low 12.0-15.0 [facility] Comment on above: Order Comment: 211.1 Performed By: #### L 500.2500, L100.0500 #### [facility] [address] [place], [address] MCH (RBC) [Entitic mass] 27.4 pg Normal 27.0-32.0 [facility] Comment on above: Order Comment: 211.1 Performed By: #### L 500.2500, L100.0500 #### [facility] [address] [place], [address] MCHC (RBC) [Mass/Vol] 31.6 g/dL Low 32-36 [facility] Comment on above: Order Comment: 211.1 Performed By: #### L 500.2500, L100.0500 #### [facility] [address] [place], [address] MCV (RBC) [Entitic vol] 86.8 fL Normal 81-99 [facility] Comment on above: Order Comment: 211.1 Performed By: #### L 500.2500, L100.0500 #### [facility] [address] [place], [address] Platelet mean volume (Bld) [Entitic vol] 10.6 fL Normal 6.2-12.0 [facility] Comment on above: Order Comment: 211.1 Performed By: #### L 500.2500, L100.0500 #### [facility] [address] [place], [address] Platelets (Bld) [#/Vol] 256 10*3/uL Normal 150-450 [facility] Comment on above: Order Comment: 211.1 Performed By: #### L 500.2500, L100.0500 #### [facility] [address] [place], [address] RBC (Bld) [#/Vol] 3.72 10*6/uL Low 4.2-5.4 [facility] Comment on above: Order Comment: 211.1 Performed By: #### L 500.2500, L100.0500 #### [facility] [address] [place], [address] RDW SD 43.3 fl Normal 35.1-43.9 [facility] Comment on above: Order Comment: 211.1 Performed By: #### L 500.2500, L100.0500 #### [facility] [address] [place], [address] WBC (Bld) [#/Vol] 6.2 10*3/uL Normal 4.4-11.0 [facility] Comment on above: Order Comment: 211.1 Performed By: #### L 500.2500, L100.0500 #### [facility] [address] [place], [address] CNDSon 10-18-2023 [facility] HNO ID: [id number] Author: MARIVEL TRACY MD Service: Orthopaedic Surgery Author Type: Nurse Practitioner Type: Discharge Summary Filed: 10/22/2023 09:27 Note Text: Attestation signed by Marivel Tracy MD at 10/22/2023 9:27 AM Attending Surgeon Attestation Above note reviewed and agree. Marivel Tracy MD [facility] 9:27 AM DISCHARGE SUMMARY PATIENT NAME: Ledy Ching ADMISSION DATE: 10/15/2023 DISCHARGE DATE: 10/18/2023 ATTENDING PHYSICIAN: Marivel Tracy MD Code Status: Not on file Highest Readmission Risk Score: 13 The 30 day readmissions risk score is derived from an internally validated risk model which evaluates patient level characteristics, utilization history, medication orders and lab results up until the day of discharge. Patients with a score of 40 or above are considered highest risk for readmission. Specific patient level drivers will be listed at the bottom of the summary. CONSULTING TEAMS DURING HOSPITALIZATION: Dr. Rockwell for medical management Treatment Team: Attending Provider: Marivel Tracy MD Consulting: Guille Perez MD REASON FOR HOSPITALIZATION: Left knee extensor mechanism reconstruction, left total knee arthroplasty polyethylene exchange on 10/15/2023. 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 * OPERATIONS DURING HOSPITALIZATION: Left knee extensor mechanism reconstruction, left total knee arthroplasty polyethylene exchange on 10/15/[address] Tracy [facility]: This is a 78-year-old female who came into [facility] as scheduled and underwent Left knee extensor mechanism reconstruction, left total knee arthroplasty polyethylene exchange with Dr. Tracy. The patient tolerated the procedure well and had no complications during the surgery or the subsequent recovery from anesthesia. They were then taken to the orthopedic unit for further recovery, physical therapy, and occupational therapy. She did fairly well during remainder of her stay without complications. She was permitted full weightbearing to the left leg with leg in extension, does have a long-leg posterior splint in place. At this point, we will use the splint as opposed to brace. (She does have an IROM brace in the room, will plan to keep this for possibility of future use down the road). Otherwise, PT and OT did work with her throughout. She did struggle with mobility and her long term facility was recommended. She also had a Prevena incisional VAC which will remain in place for 1 week, follow-up in the office at that time for removal, wound inspection and placement of long-leg cast. She was on extended antibiotic prophylaxis with Ancef IV here in the hospital, cefadroxil 500 mg p.o. twice daily for 7 days at discharge. DVT prophylaxis with Lovenox subcu which will continue for 6 weeks at discharge. She was able to discharge in stable condition to long term [facility] on 10/18/2023. She will follow-up in the office with Dr. Tracy 10/22/2023 (1-week postop). PATIENT CONDITION AT DISCHARGE: Stable DISCHARGE DISPOSITION: [facility] Pertinent physical findings on discharge were that the patient was alert, no acute distress, no shortness breath or chest pain, pain was under control, surgical dressing was dry and intact, and they were in stable condition. WOUND/SURGICAL SITE CARE: Wound/Surgical Site Care Other: No dressing changes needed until follow-up visit next week on 10/22/2023. Keep the Prevena/incisional wound VAC in place, Han wrap, splint. This will all be removed at follow-up visit next week. DIET: Resume pre-hospital diet ACTIVITY: Full weightbearing left leg, no range of motion of the knee, long-leg splint in place. ALLERGIES No Known Allergies DISCHARGE MEDICATION: Medication List START taking these medications cefADROxil 500 mg capsule Commonly known as: DURICEF Take 1 capsule by mouth every 12 hours for 7 days. enoxaparin 40 mg/0.4 mL Commonly known as: LOVENOX Inject 0.4 mL subcutaneously once daily. oxyCODONE IR 5 mg immediate release tablet Commonly known as: ROXICODONE Take 1 tablet by mouth every 4 hours as needed for up to 7 days. CONTINUE taking these medications acetaminophen 500 mg tablet Commonly known as: TYLENOL amLODIPine 10 mg tablet Commonly known as: NORVASC ascorbic aci (more content not included)... [facility] NURSING PROGon 10-18-2023 NURSING PROG HNO ID: [id number] Author: RYAN GENTILE, RN Service: Nursing Author Type: Registered Nurse Type: Nursing Progress Note Filed: 10/18/2023 14:15 Note Text: Report called to Doswell Agueda at this time. All questions answered and notified them plans to picker / packer at 1500. [facility] NURSING PROG HNO ID: [id number] Author: RYAN GENTILE RN Service: Nursing Author Type: Registered Nurse Type: Nursing Progress Note Filed: 10/18/2023 14:06 Note Text: RN spoke to patients who understood with her limited mobility it would be safest to have an ambulance service transport to facility. made aware staff is unable to assist patient into car and he states he will make do and is transporting her himself. RN will update social staff worker. [facility] THERAPY NTon 10-18-2023 THERAPY NT HNO ID: [id number] Author: TYRON CORTES PT Service: Physical Therapy Author Type: Physician General Internal Medicine Type: Therapy (PT/OT/Speech/Resp) Filed: 10/18/2023 14:29 Note Text: Attestation signed by Tyron Cortes PT at 10/18/2023 2:29 PM I reviewed and agree with the documentation corresponding to this therapy visit. SIGNATURE: Tyron Cortes PT DATE: October 18, 2023 TIME: 2:29 PM Physical Therapy Treatment Summary SERVICE DATE: 10/18/2023 SERVICE TIME: 807 to 846 ROOM: [place] [id number] PT 6 Clicks Score: 10 DISCHARGE RECOMMENDATIONS Acute Rehab Recommended Discharge Disposition Due to: Patient requires active, intensive rehabilitation by multiple therapy disciplines. Anticipate the patient will tolerate 3 hours of therapy per day., Functional status decline, Requires multiple therapy disciplines ASSESSMENT Response to Therapy Interventions: Low Activity Tolerance Fair response to session this date. Pt having difficulty WB on LLE . Fatigues very quickly PRECAUTIONS Fall Risk, Weight Bearing Restrictions, Brace, Lines/Tubes/Drains long leg splint on L LE- NO FLEXION to knee; wound vac LLE, primafit, very [place] even with hearing aids Left Lower Extremity Weight Bearing Status: WBAT CURRENT HOSPITAL COURSE s/p elective L knee extensor mechanism repair and polyethylene exchange on 10/15/23 Relevant Past Medical History: OA, L TKA HOME LIVING Patient Lives With: Spouse Assistance Available: 24-Hour Entry To Home: Stairs, With Rail Number Of Stairs Into Home: 3 Number Of Stairs To Bed/Bath: 0 Tub/Shower Type: walk in shower Equipment Owned: Grab Bars- Shower, Shower Chair, Walker- Wheeled, Wheelchair- Manual, Cane PRIOR FUNCTIONAL LEVEL Within Functional Limits pt reports she needed assist from for ADLs, she was SPT from bed to w/c with husbands assist, able to manage w/c in bathroom, use of bar to SPT to toilet. pt was supposed to be NWB on LLE prior to surgery, she notes she was able to maintain it most of the time. she denied falls. SUBJECTIVE agreeable to session THERAPY DIAGNOSIS Unsteadiness on feet, Abnormalities of gait and mobility-other TREATMENT INTERVENTIONS Therapeutic Activity (91676) Timed Code Treatment (minutes): 39 Skilled Treatment Time (minutes): 39 TRAINING AND EDUCATION PROVIDED Bed Mobility, Benefits of In-Hospital Mobility, Discharge Planning, Disease Specific Education, Assistive Device Use, Anatomy and Impact on Deficits, Expected Functional Level, Positioning, Precautions/Restrictio ns, Pain Neuroscience, Role of Physical Therapy, Sitting Balance, Standing Balance, Transfers THERAPEUTIC SKILLS USED FUNCTIONAL STATUS Bed Mobility Rolling: Moderate Assistance Supine To Sit: Moderate Assistance Sit to Supine: Moderate Assistance Scooting: Moderate Assistance Transfers Sit To Stand: Moderate Assistance from elevated surface. Stand To Sit: Moderate Assistance Bed to Chair Maximal Assistance, Additional Information Bed To Chair Transfer Type: Stepping Bed To Chair Transfer Equipment: Wheeled Walker step by step verbal cues required for walker management. pt attempting to slide into chair Gait Moderate Assistance Gait Device: Wheeled Walker Gait Distance (feet): 5 Stairs GOALS Patient will demonstrate understanding of importance of mobility during hospital stay and resolve all functional needs identified. Transfer Supine to/from Sit with: Supervision Transfer Sit to/from Stand with: Supervision Ambulate with: Supervision Distance: 80 Device: Wheeled Walker Ambulate Up and Down Steps with: Supervision Number of Steps: 3 Device: Rail Rehab Potential: Good Progress Toward Goals: Progressing as expected PLAN PT Frequency: 5 Times Per Week Treatment Interventions: Education, Functional Mobility Training, Balance Training, Neuromuscular Re-education Plan for Next Visit: Bed Mobility, Sit to Stand Transfers, Chair Transfer Training SIGNATURE: Evette Izaguirre PTA PATIENT NAME: Ledy Ching DATE: October 18, 2023 TIME: 10:29 AM [facility] THERAPY NT HNO ID: [id number] Author: DAR HERNÁNDEZ COTA/L Service: Occupational Therapy Author Type: Round Kiln Drawer Type: Therapy (PT/OT/Speech/Resp) Filed: 10/18/2023 10:16 Note Text: Attestation signed by Autumn Rae OTR/L at 10/18/2023 11:34 AM I reviewed and agree with the documentation corresponding to this therapy visit. SIGNATURE: NEO Blue DATE: October 18, 2023 TIME: 11:34 AM Occupational Therapy Treatment Summary SERVICE DATE: 10/18/2023 SERVICE TIME: 0943 to 1010 ROOM: [id number] OT 6 Clicks Score: 16 DISCHARGE RECOMMENDATIONS Acute Rehab Recommended Discharge Disposition Comments: pt presents with decreased endurance, dynamic balance, functional independence and safety. pt is at high risk for falls, would benefit from cont OT services Recommended Discharge Disposition Due to: Functional deficits requiring ongoing therapy service prior to discharge home., ADL impairment Anticipated Discharge Needs: Physical Assist at Home, Supervision at Home Physical Assist at Home for: Ambulation, Transfers, Stairs, Safety, Self Care Supervision at Home due to: Decreased safety awareness ASSESSMENT Response to Therapy Interventions: Improved Tolerance for Activity, Good Participation in Activities, Requires Encouragement to Complete Activities, Requires Additional Time to Complete Activities, Slow Progression with ADLs/IADLs, Slow Progression with Functional Activities/Skills patient feeling much better this date, bp stable, cont to req heavy assist when up and is at a high risk for falls, not safe for homegoing alone PRECAUTIONS Fall Risk, Weight Bearing Restrictions, Brace, Lines/Tubes/Drains long leg splint on L LE- NO FLEXION to knee; wound vac LLE, primafit, very [place] even with hearing aids Left Lower Extremity Weight Bearing Status: WBAT CURRENT HOSPITAL COURSE s/p elective L knee extensor mechanism repair and polyethylene exchange on 10/15/23 Relevant Past Medical History: OA, L TKA HOME LIVING Patient Lives With: Spouse Assistance Available: 24-Hour Entry To Home: Stairs, With Rail Number Of Stairs Into Home: 3 Number Of Stairs To Bed/Bath: 0 Tub/Shower Type: walk in shower Equipment Owned: Grab Bars- Shower, Shower Chair, Walker- Wheeled, Wheelchair- Manual, Cane PRIOR FUNCTIONAL LEVEL Within Functional Limits pt reports she needed assist from for ADLs, she was SPT from bed to w/c with husbands assist, able to manage w/c in bathroom, use of bar to SPT to toilet. pt was supposed to be NWB on LLE prior to surgery, she notes she was able to maintain it most of the time. she denied falls. Baseline Cognition: Oriented to self, Oriented to place, Oriented to time, Oriented to situation SUBJECTIVE i feel much better today COGNITION Responsiveness: Alert, Awake Follows Commands: 3-step Commands, Cueing Needed Cueing to Follow Commands: Minimum Executive Function Deficits: Judgement, Insight to Deficits, Problem Solving, Motor Planning, Safety Awareness Psychosocial Factors Impacting Care: Motivation, Impulse Control THERAPY DIAGNOSIS Decreased activities of daily living (ADL) TREATMENT INTERVENTIONS Self Intermediate Management (89152) Timed Code Treatment (minutes): 27 Skilled Treatment Time (minutes): 27 TRAINING AND EDUCATION PROVIDED Activity Adaptation/Manager Practice y Strategies, Bed Mobility, Benefits of In-Hospital Mobility, Body Image/Self-Esteem, Discharge Planning, Edema Management, Energy Conservation, Functional Mobility Involving ADLs, Grooming Tasks, Insight into Deficits, Lower Extremity Bathing, Lower Extremity Dressing, Positioning, Precautions/Restrictio ns, Role of Occupational Therapy, Safety/Judgment, Standing Balance to Improve Swisher with ADLs/Self-Care, Transfer - Sit to Stand, Transfer - Toilet/Commode THERAPEUTIC SKILLS USED Activity Dosing, Cuing Tactile, Cuing Verbal, Cuing Visual FUNCTIONAL STATUS Activities of Daily Living Assist Level Additional Information Feeding Independent Grooming Minimal Assistance, Additional Information sitting in chaorfor brushing teeth,m washing face Bathing Upper Body Minimal Assistance, Additional Information full adls sitting in chjair Bathing Lower Body Maximal Assistance, Additional Information physical assist for blaance and for nicholas care / buttoicks Dressing Upper Body Minimal Assistance, Additional Information gown Dressing Lower Body Maximal Assistance, Additional Information adaptive tech for brief leanng l/r sitting eob, patient then becoming dizzy Toileting Maximal Assistance Mobility Assist Level Additional Information Bed Mobility Rolling: Moderate Assistance, Additional Information Supine To Sit: Minimal Assistance, Additional Information Sit To (more content not included)... [facility] CONSULTon 10-17-2023 CONSULT HNO ID: [id number] Author: KARYN ROCKWELL MD Service: ? Author Type: Physician Type: Consults Filed: 10/17/2023 17:52 Note Text: INITIAL CONSULT NOTE SERVICE DATE: 10/17/23 SERVICE TIME: 5:48 PM REASON FOR CONSULT: Postoperative medical evaluation and management as the patient's primary care physician does not come to this institution REQUESTING PHYSICIAN: Marivel Tracy MD PRIMARY CARE PHYSICIAN: Saima Mendoza MD Subjective Ledypablo Ching is a 78 year old female who presents for postoperative care following left total knee arthroplasty. Primary care team does not come to this institution. Non-smoker. Lives with . Poor historian. Very hard of hearing.. FUNCTIONAL STATUS: Partially dependent PAST MEDICAL HISTORY No date: Arthritis No date: Diverticulitis No date: Diverticulosis No date: High cholesterol No date: Hypertension PAST SURGICAL HISTORY 1979: HYSTERECTOMY HX Comment: partial 2020: KNEE SURGERY HX Comment: TOTAL LEFT KNEE 2020 [place] 08/19/2023: KNEE SURGERY HX Comment: REVISION LEFT TOTAL KNEE AT [place] No family history on file. Social History Tobacco Use Smoking status: Never Passive exposure: Never Substance Use Topics Alcohol use: No Drug use: Never aspirin 81 mg cap, Take by mouth once daily. TAKES A PREVENTATIVE/ PACC appoint. 10/08/23, pt states PCP/ Dr. Saima Mendoza does not want her to stop taiking; instructed to inform Dr. Tracy, Disp: , Rfl: , 10/14/2023 acetaminophen (TYLENOL) 500 mg tablet, Take 500 mg by mouth two times a day., Disp: , Rfl: , 10/07/2023 carvedilol (COREG) 3.125 mg tablet, Take 12.5 mg by mouth two times a day with meals. PACC appoint. Pt states she only takes 1 x day, Disp: , Rfl: , 10/15/2023 at 0730 calcium carbonate (CALTRATE) 600 mg calcium (1,500 mg) tab, Take by mouth. STOPPED FOR SURGERY LAST DOSE 09/30, Disp: , Rfl: , 10/07/2023 ascorbic acid, vitamin C, (VITAMIN C) 500 mg tablet, Take by mouth. STOPPED FOR SURGERY 09/30 LAST DOSE, Disp: , Rfl: , 10/07/2023 Cholecalciferol, Vitamin D3, 50 mcg (2,000 unit) cap, Take by mouth. STOPPED FOR SURGERY LAST DOSE 09/30, Disp: , Rfl: , 10/07/2023 lisinopril (ZESTRIL, PRINIVIL) 40 mg tablet, Take 40 mg by mouth every morning., Disp: , Rfl: , 10/14/2023 omeprazole (PRILOSEC) 40 mg capsule, Take 40 mg by mouth every evening., Disp: , Rfl: , 10/14/2023 hydroCHLOROthiazide (HYDRODIURIL, ESIDRIX) 50 mg tablet, Take 50 mg by mouth every morning., Disp: , Rfl: , 10/14/2023 amLODIPine (NORVASC) 10 mg tablet, every morning., Disp: , Rfl: , 10/15/2023 at 0730 vitamin A (AQUASOL A) 10,000 unit capsule, Take by mouth. STOPPED 09/30 FOR SURGERY, Disp: , Rfl: , 10/07/2023 traZODone (DESYREL) 100 mg tablet, Take 100 mg by mouth daily at bedtime., Disp: , Rfl: , 10/14/2023 meloxicam (MOBIC) 15 mg tablet, Take 15 mg by mouth once daily. STOPPED FOR SURGERY 10/01/23, Disp: , Rfl: , 10/14/2023 simvastatin 20 mg tablet, Take 20 mg by mouth daily at bedtime. , Disp: , Rfl: , 10/14/2023 paroxetine 20 mg tablet, Take 20 mg by mouth every morning., Disp: , Rfl: , 10/15/2023 at 0730 Current Facility-Administered Medications Medication Dose Route Frequency midazolam (PF) 2 mg injection (VERSED) 2 mg INTRAVENOUS Pre-Op PRN carvedilol 12.5 mg tab(s) (COREG) 12.5 mg ORAL BID w MEALS hydroCHLOROthiazide 50 mg tab(s) 50 mg ORAL DAILY lisinopril 40 mg tab(s) (ZESTRIL) 40 mg ORAL DAILY simvastatin 20 mg tab(s) (ZOCOR) 20 mg ORAL AT BEDTIME PARoxetine 20 mg tab(s) (PAXIL) 20 mg ORAL DAILY traZODone 100 mg tab(s) (DESYREL) 100 mg ORAL AT BEDTIME NaCl 0.9% iv infusion 75 mL/hr INTRAVENOUS CONTINUOUS traMADol 50 mg tab(s) (ULTRAM) 50 mg ORAL q 6 H PRN oxyCODONE IR 5-10 mg tab(s) (ROXICODONE) 5-10 mg ORAL q 4 H PRN HYDROmorphone 0.4 mg injection (DILAUDID) 0.4 mg INTRAVENOUS q 3 H PRN ondansetron 4 mg tab(s) (ZOFRAN) 4 mg ORAL q 6 H PRN Or ondansetron (PF) 4 mg injection (ZOFRAN) 4 mg INTRAVENOUS q 6 H PRN polyethylene glycol 3350 17 g packet 17 g ORAL DAILY PRN bisacodyl EC 10 mg tab(s) (DULCOLAX) 10 mg ORAL DAILY docusate sodium 100 mg cap(s) (COLACE) 100 mg ORAL BID senna 17.2 mg tab(s) (SENOKOT) 17.2 mg ORAL AT BEDTIME enoxaparin 40 mg injection (LOVENOX) 40 mg SUBCUTANEOUS DAILY Allergies As of Date: 09/29/2023 (No Known Allergies) Fully Assessed 06/06/2022 COMPLETE REVIEW OF SYSTEMS: Attempted to do a review of systems but patient's severe hearing loss and her hearing aids have not been charged made it impossible for me to get any type of meaningful answers to questions. Objective PHYSICAL EXAM: Physical Exam Performed: GENERAL: Alert, no distress, cooperative SKIN: Skin color, texture, turgor normal. No rashes or lesions. EYES: PERRLA, EOMI NECK: No jugulovenous distention, No carotid bruits, Supple LUNGS: Lungs clear to auscultation, Good diaphragmatic excursion CARDIAC: Currently regular rate and rhythm. Grade 1/6 systolic ejection murmu (more content not included)... [facility] THERAPY NTon 10-17-2023 THERAPY NT HNO ID: [id number] Author: DAR HERNÁNDEZ COTA/L Service: ? Author Type: Round Kiln Drawer Type: Therapy (PT/OT/Speech/Resp) Filed: 10/17/2023 09:16 Note Text: Attestation signed by Cristin Álvarez OTR/L at 10/17/2023 11:35 AM I reviewed and agree with the documentation corresponding to this therapy visit. SIGNATURE: NEO Hardin DATE: October 17, 2023 TIME: 11:35 AM Occupational Therapy Treatment Summary SERVICE DATE: 10/17/2023 SERVICE TIME: 727 ROOM: [id number] OT 6 Clicks Score: 16 DISCHARGE RECOMMENDATIONS Acute Rehab Recommended Discharge Disposition Comments: pt presents with decreased endurance, dynamic balance, functional independence and safety. pt is at high risk for falls, would benefit from cont OT services Recommended Discharge Disposition Due to: Functional deficits requiring ongoing therapy service prior to discharge home., ADL impairment Anticipated Discharge Needs: Physical Assist at Home, Supervision at Home Physical Assist at Home for: Ambulation, Transfers, Stairs, Safety, Self Care Supervision at Home due to: Decreased safety awareness ASSESSMENT Response to Therapy Interventions: Limited Participation, Low Activity Tolerance, Multiple Ongoing Medical Issues, Needs Frequent Redirection or Reinstruction, Requires Additional Time to Complete Activities, Slow Progression with ADLs/IADLs, Requires Encouragement to Complete Activities, Slow Progression with Functional Activities/Skills req much time and encouragement to do for self, patient is currently a heavy assist w/ all transfers / adls. would best benefit from a rehab stay to address current functional deficits prior to homegoing PRECAUTIONS Fall Risk, Weight Bearing Restrictions, Brace, Lines/Tubes/Drains long leg splint on L LE- NO FLEXION to knee; wound vac LLE, primafit, very [place] even with hearing aids Left Lower Extremity Weight Bearing Status: WBAT CURRENT HOSPITAL COURSE s/p elective L knee extensor mechanism repair and polyethylene exchange on 10/15/23 Relevant Past Medical History: OA, L TKA HOME LIVING Patient Lives With: Spouse Assistance Available: 24-Hour Entry To Home: Stairs, With Rail Number Of Stairs Into Home: 3 Number Of Stairs To Bed/Bath: 0 Tub/Shower Type: walk in shower Equipment Owned: Grab Bars- Shower, Shower Chair, Walker- Wheeled, Wheelchair- Manual, Cane PRIOR FUNCTIONAL LEVEL Within Functional Limits pt reports she needed assist from for ADLs, she was SPT from bed to w/c with husbands assist, able to manage w/c in bathroom, use of bar to SPT to toilet. pt was supposed to be NWB on LLE prior to surgery, she notes she was able to maintain it most of the time. she denied falls. Baseline Cognition: Oriented to self, Oriented to place, Oriented to time, Oriented to situation SUBJECTIVE i might be going home today, i dont know. my is going to have to do alot. i may have go go somewhere first case mgmt kristy notified of same COGNITION Responsiveness: Alert Follows Commands: 3-step Commands Executive Function Deficits: Judgement, Insight to Deficits, Problem Solving, Motor Planning, Safety Awareness Psychosocial Factors Impacting Care: Motivation, Impulse Control THERAPY DIAGNOSIS Decreased activities of daily living (ADL) TREATMENT INTERVENTIONS Therapeutic Activity (77800), Self Intermediate Management (64936) Timed Code Treatment (minutes): 55 Skilled Treatment Time (minutes): 55 TRAINING AND EDUCATION PROVIDED Activity Adaptation/Manager Practice y Strategies, Bed Mobility, Benefits of In-Hospital Mobility, Body Image/Self-Esteem, Discharge Planning, Edema Management, Energy Conservation, Functional Mobility Involving ADLs, Grooming Tasks, Insight into Deficits, Lower Extremity Bathing, Lower Extremity Dressing, Positioning, Precautions/Restrictio ns, Role of Occupational Therapy, Safety/Judgment, Standing Balance to Improve Swisher with ADLs/Self-Care, Transfer - Sit to Stand, Transfer - Toilet/Commode THERAPEUTIC SKILLS USED Activity Dosing, Cuing Tactile, Cuing Verbal, Cuing Visual FUNCTIONAL STATUS Activities of Daily Living Assist Level Additional Information Feeding Independent Grooming Minimal Assistance, Additional Information sitting eob for brushing teeth,m washing face Bathing Upper Body Minimal Assistance, Additional Information full adls sitting eob, patient asking to lay back down after sitting up 8 mins, encouraged mobility as patient is stating she is choosing to go home w/ assist Bathing Lower Body Maximal Assistance, Additional Information physical assist for blaance and for nicholas care / buttoicks leaning r/l sitting eob Dressing Upper Body Minimal Assistance, Additional Informa (more content not included)... [facility] THERAPY NT HNO ID: [id number] Author: ELIAS RAGLAND, PT Service: Physical Therapy Author Type: Physician General Internal Medicine Type: Therapy (PT/OT/Speech/Resp) Filed: 10/17/2023 10:32 Note Text: Attestation signed by Elias Ragland PT at 10/17/2023 10:32 AM I reviewed and agree with the documentation corresponding to this therapy visit. SIGNATURE: Elias Ragland PT DATE: October 17, 2023 TIME: 10:32 AM Physical Therapy Treatment Summary SERVICE DATE: 10/17/2023 SERVICE TIME: 0830 to 0856 ROOM: [id number] PT 6 Clicks Score: 10 DISCHARGE RECOMMENDATIONS Acute Rehab Recommended Discharge Disposition Due to: Patient requires active, intensive rehabilitation by multiple therapy disciplines. Anticipate the patient will tolerate 3 hours of therapy per day., Functional status decline, Requires multiple therapy disciplines ASSESSMENT Response to Therapy Interventions: Low Activity Tolerance Patient responded fair to today's visit. Patient w/ low BP at this time; returned supine at end of treatment session - RN aware. Patient continues to require hands on assist w/ all mobility performed at this time. PRECAUTIONS Fall Risk, Weight Bearing Restrictions, Brace, Lines/Tubes/Drains long leg splint on L LE- NO FLEXION to knee; wound vac LLE, primafit, very [place] even with hearing aids Left Lower Extremity Weight Bearing Status: WBAT CURRENT HOSPITAL COURSE s/p elective L knee extensor mechanism repair and polyethylene exchange on 10/15/23 Relevant Past Medical History: OA, L TKA HOME LIVING Patient Lives With: Spouse Assistance Available: 24-Hour Entry To Home: Stairs, With Rail Number Of Stairs Into Home: 3 Number Of Stairs To Bed/Bath: 0 Tub/Shower Type: walk in shower Equipment Owned: Grab Bars- Shower, Shower Chair, Walker- Wheeled, Wheelchair- Manual, Cane PRIOR FUNCTIONAL LEVEL Within Functional Limits pt reports she needed assist from for ADLs, she was SPT from bed to w/c with husbands assist, able to manage w/c in bathroom, use of bar to SPT to toilet. pt was supposed to be NWB on LLE prior to surgery, she notes she was able to maintain it most of the time. she denied falls. SUBJECTIVE I wasn't putting weight on this before THERAPY DIAGNOSIS Unsteadiness on feet, Abnormalities of gait and mobility-other TREATMENT INTERVENTIONS Therapeutic Activity (80666) Timed Code Treatment (minutes): 26 Skilled Treatment Time (minutes): 26 TRAINING AND EDUCATION PROVIDED Bed Mobility, Benefits of In-Hospital Mobility, Discharge Planning, Disease Specific Education, Assistive Device Use, Anatomy and Impact on Deficits, Expected Functional Level, Positioning, Precautions/Restrictio ns, Pain Neuroscience, Role of Physical Therapy, Sitting Balance, Standing Balance, Transfers THERAPEUTIC SKILLS USED Cues for Sequencing/Proper Technique for Activity, Cuing Verbal, Cuing Tactile, Cuing Visual, Assessment of Tolerance Including Vitals Response to Activity, Movement Facilitation, Physical Assist FUNCTIONAL STATUS Bed Mobility Rolling: Moderate Assistance Supine To Sit: Moderate Assistance . Sit to Supine: Moderate Assistance Transfers Sit To Stand: Maximal Assistance From EOB. x several attempts to stand fully upright w/ bed height elevated. Ongoing cues/education for proper hand placement and technique Stand To Sit: Moderate Assistance Bed to Chair Gait Moderate Assistance Gait Device: Wheeled Walker Gait Distance (feet): 5 Stairs GOALS Patient will demonstrate understanding of importance of mobility during hospital stay and resolve all functional needs identified. Transfer Supine to/from Sit with: Supervision Transfer Sit to/from Stand with: Supervision Ambulate with: Supervision Distance: 80 Device: Wheeled Walker Ambulate Up and Down Steps with: Supervision Number of Steps: 3 Device: Rail Rehab Potential: Good Progress Toward Goals: Progressing slower than expected PLAN PT Frequency: 5 Times Per Week Treatment Interventions: Education, Functional Mobility Training, Balance Training, Neuromuscular Re-education Plan for Next Visit: Bed Mobility, Sit to Stand Transfers, Chair Transfer Training SIGNATURE: Molly Velasquez PTA PATIENT NAME: Ledy Ching DATE: October 17, 2023 TIME: 9:10 AM Normal [facility] Basic metabolic 2000 panelon 10-16-2023 Anion gap [Moles/Vol] 6 mmol/L Normal -16 [facility] Comment on above: Order Comment: Speci men Type: BLOOD SPECIMEN Ordering Facility: [facility] Address: [address] [place] [address] Performed By: #### 5 8410-2 #### [facility] CLIA [id number] [address] [place] [address] [place] Calcium [Mass/Vol] 9.6 mg/dL Normal 8.5-10.5 [facility] Comment on above: Order Comment: Speci men Type: BLOOD SPECIMEN Ordering Facility: [facility] Address: [address] [place] [address] Performed By: #### 5 8410-2 #### [facility] CLIA [id number] [address] [place] [address] [place] Chloride [Moles/Vol] 101 mmol/L Normal 98-107 [facility] Comment on above: Order Comment: Speci men Type: BLOOD SPECIMEN Ordering Facility: [facility] Address: [address] [place] [address] Performed By: #### 5 8410-2 #### [facility] CLIA [id number] [address] [place] [address] [place] CO2 [Moles/Vol] 33 mmol/L High 21-32 [facility] Comment on above: Order Comment: Speci men Type: BLOOD SPECIMEN Ordering Facility: [facility] Address: [address] [place] [address] Performed By: #### 5 8410-2 #### [facility] CLIA [id number] [address] [place] [address] [place] Creatinine [Mass/Vol] 0.66 mg/dL Normal 0.51-0.95 [facility] Comment on above: Order Comment: Speci men Type: BLOOD SPECIMEN Ordering Facility: [facility] Address: [address] [place] [address] Result Comment: Petrona ents receiving either N-Acetylcysteine (NAC) or Metamizole prior to venipuncture, may have falsely depressed results. Performed By: #### 5 8410-2 #### [facility] CLIA [id number] [address] [place] [address] [place] Creatinine and Glomerular filtration rate.predicted panel (S/P/Bld) 90 mL/min/1.73m??? Normal >=60 [facility] Comment on above: Order Comment: Georgie dumont Type: BLOOD SPECIMEN Ordering Facility: [facility] Address: [address] [place] [address] Result Comment: Jessica mated Glomerular Filtration Rate (eGFR) is calculated using the 2020 CKD-EPI creatinine equation. This equation utilizes serum creatinine, sex, and age as parameters. The creatinine assay has traceable calibration to isotope dilution-mass spectrometry. Refer to KDIGO guidelines for clinical interpretation. In patients with unstable renal function, e.g. those with acute kidney injury, the eGFR may not accurately reflect actual GFR. Performed By: #### 5 8410-2 #### [facility] CLIA [id number] [address] [place], [place] [id number] [place] Glucose [Mass/Vol] 113 mg/dL High 70-100 [facility] Comment on above: Order Comment: Georgie dumont Type: BLOOD SPECIMEN Ordering Facility: [facility] Address: [address] [place] [address] Result Comment: The [place] [employer] (ADA) provides guidance for cutoff values for fasting glucose and random glucose. The ADA defines fasting as no caloric intake for at least 8 hours. Fasting plasma glucose results between 100 to 125 mg/dL indicate increased risk for diabetes (prediabetes). Fasting plasma glucose results greater than or equal to 126 mg/dL meet the criteria for diagnosis of diabetes. In the absence of unequivocal hyperglycemia, results should be confirmed by repeat testing. In a patient with classic symptoms of hyperglycemia or hyperglycemic crisis, random plasma glucose results greater than or equal to 200 mg/dL meet the criteria for diagnosis of diabetes. Reference: Standards of Medical Care in Diabetes 2016, [place] [employer]. Diabetes Care. 2016.39(Suppl 1). Results may be falsely elevated after the administration of Sulfapyridine. Results may be falsely depressed after the administration of Sulfasalazine. Performed By: #### 5 8410-2 #### [facility] CLIA [id number] [address] [place], [place] [id number] [place] Potassium [Moles/Vol] 4.0 mmol/L Normal 3.5-5.1 [facility] Comment on above: Order Comment: Georgie dumont Type: BLOOD SPECIMEN Ordering Facility: [facility] Address: [address] [place] [address] Performed By: #### 5 8410-2 #### [facility] CLIA [id number] [address] [place], [place] [address] [place] Sodium [Moles/Vol] 140 mmol/L Normal 136-145 [facility] Comment on above: Order Comment: Speci men Type: BLOOD SPECIMEN Ordering Facility: [facility] Address: [address] [place] [address] Performed By: #### 5 8410-2 #### [facility] CLIA [id number] [address] [place] [address] [place] Urea nitrogen [Mass/Vol] 12 mg/dL Normal 7-26 [facility] Comment on above: Order Comment: Speci men Type: BLOOD SPECIMEN Ordering Facility: [facility] Address: [address] [place] [address] Performed By: #### 5 8410-2 #### [facility] CLIA [id number] [address] [place] [address] [place] CBC panel Auto (Bld)on 10-15 Erythrocyte distribution width (RBC) [Ratio] 13.9 % Normal 11.5-15.0 [facility] Comment on above: Order Comment: Speci men Type: BLOOD SPECIMEN Ordering Facility: [facility] Address: [address] [place] [address] Performed By: #### 5 8410-2 #### [facility] CLIA [id number] [address] [place] [address] [place] Hematocrit (Bld) [Volume fraction] 36.6 % Normal 36.0-46.0 [facility] Comment on above: Order Comment: Speci men Type: BLOOD SPECIMEN Ordering Facility: [facility] Address: [address] [place] [address] Performed By: #### 5 8410-2 #### [facility] CLIA [id number] [address] [place] [address] [facility] [place] Hemoglobin (Bld) [Mass/Vol] 12.0 g/dL Normal 11.5-15.5 [facility] Comment on above: Order Comment: Speci men Type: BLOOD SPECIMEN Ordering Facility: [facility] Address: [address] [place] [address] Performed By: #### 5 8410-2 #### [facility] CLIA [id number] [address] [place] [address] [place] MCH (RBC) [Entitic mass] 27.8 pg Normal 26.0-34.0 [facility] Comment on above: Order Comment: Speci men Type: BLOOD SPECIMEN Ordering Facility: [facility] Address: [address] [place] [address] Performed By: #### 5 8410-2 #### [facility] CLIA [id number] [address] [place] [address] [place] MCHC (RBC) [Mass/Vol] 32.8 g/dL Normal 30.5-36.0 [facility] Comment on above: Order Comment: Speci men Type: BLOOD SPECIMEN Ordering Facility: [facility] Address: [address] [place] [address] Performed By: #### 5 8410-2 #### [facility] CLIA [id number] [address] [place] [address] [place] MCV (RBC) [Entitic vol] 84.9 fL Normal 80.0-100.[address] [facility] Comment on above: Order Comment: Speci men Type: BLOOD SPECIMEN Ordering Facility: [facility] Address: [address] [place] [address] Performed By: #### 5 8410-2 #### [facility] CLIA [id number] [address] [place] [address] [place] Nucleated RBC (Bld) [#/Vol] 10*3/uL Normal <0.01 [facility] Comment on above: Order Comment: Speci men Type: BLOOD SPECIMEN Ordering Facility: [facility] Address: [address] [place] [address] Performed By: #### 5 8410-2 #### [facility] CLIA [id number] [address] [place], [place] [id number] [place] Platelet mean volume (Bld) [Entitic vol] 9.6 fL Normal 9.0-12.7 [facility] Comment on above: Order Comment: Speci men Type: BLOOD SPECIMEN Ordering Facility: [facility] Address: [address] [place] [address] Performed By: #### 5 8410-2 #### [facility] CLIA [id number] [address] [place] [address] [place] Platelets (Bld) [#/Vol] 235 10*3/uL Normal 150-400 [facility] Comment on above: Order Comment: Speci men Type: BLOOD SPECIMEN Ordering Facility: [facility] Address: [address] [place] [address] Performed By: #### 5 8410-2 #### [facility] CLIA [id number] [address] [place] [address] [place] RBC (Bld) [#/Vol] 4.31 10*6/uL Normal 3.90-5.20 [facility] Comment on above: Order Comment: Speci men Type: BLOOD SPECIMEN Ordering Facility: [facility] Address: [address] [place] [address] Performed By: #### 5 8410-2 #### [facility] CLIA [id number] [address] [place] [address] [place] WBC (Bld) [#/Vol] 10.51 10*3/uL Normal 3.70-11.00 [facility] Comment on above: Order Comment: Speci men Type: BLOOD SPECIMEN Ordering Facility: [facility] Address: [address] [place] [address] Performed By: #### 5 8410-2 #### [facility] CLIA [id number] [address] [place], [place] [id number] [facility] [place] THERAPY NTon 10-16-2023 THERAPY NT HNO ID: [id number] Author: KARTHIK CHAMBERLAIN, OTR/L Service: Occupational Therapy Author Type: Occupational Therapist Type: Therapy (PT/OT/Speech/Resp) Filed: 10/16/2023 11:58 Note Text: Occupational Therapy Evaluation Summary SERVICE DATE: 10/16/2023 SERVICE TIME: 1053 to 1121 ROOM: [id number] OT 6 Clicks Score: 16 DISCHARGE RECOMMENDATIONS Acute Rehab Recommended Discharge Disposition Comments: pt presents with decreased endurance, dynamic balance, functional independence and safety. pt is at high risk for falls, would benefit from cont OT services Recommended Discharge Disposition Due to: Functional deficits requiring ongoing therapy service prior to discharge home., ADL impairment Anticipated Discharge Needs: Physical Assist at Home, Supervision at Home Physical Assist at Home for: Ambulation, Transfers, Stairs, Safety, Self Care Supervision at Home due to: Decreased safety awareness ASSESSMENT Response to Therapy Interventions: Low Activity Tolerance, Pain PRECAUTIONS Fall Risk, Weight Bearing Restrictions, Brace, Lines/Tubes/Drains long leg splint on L LE- NO FLEXION to knee; wound vac LLE Left Lower Extremity Weight Bearing Status: WBAT CURRENT HOSPITAL COURSE s/p elective L knee extensor mechanism repair and polyethylene exchange on 10/15/23 Relevant Past Medical History: OA, L TKA HOME LIVING Patient Lives With: Spouse Assistance Available: 24-Hour Entry To Home: Stairs, With Rail Number Of Stairs Into Home: 3 Number Of Stairs To Bed/Bath: 0 Tub/Shower Type: walk in shower Equipment Owned: Grab Bars- Shower, Shower Chair, Walker- Wheeled, Wheelchair- Manual, Cane PRIOR FUNCTIONAL LEVEL Within Functional Limits pt reports she needed assist from for ADLs, she was SPT from bed to w/c with husbands assist, able to manage w/c in bathroom, use of bar to SPT to toilet. pt was supposed to be NWB on LLE prior to surgery, she notes she was able to maintain it most of the time. she denied falls. Baseline Cognition: Oriented to self, Oriented to place, Oriented to time, Oriented to situation SUBJECTIVE COGNITION Responsiveness: Alert Follows Commands: 3-step Commands Executive Function Deficits: Safety Awareness, Insight to Deficits, Judgement Psychosocial Factors Impacting Care: Motivation, Impulse Control THERAPY DIAGNOSIS Decreased activities of daily living (ADL) TREATMENT INTERVENTIONS Evaluation, Self Intermediate Management (63100) Timed Code Treatment (minutes): 10 Skilled Treatment Time (minutes): 28 TRAINING AND EDUCATION PROVIDED Activity Adaptation/Manager Practice y Strategies, Bed Mobility, Benefits of In-Hospital Mobility, Body Image/Self-Esteem, Discharge Planning, Edema Management, Energy Conservation, Functional Mobility Involving ADLs, Grooming Tasks, Insight into Deficits, Lower Extremity Bathing, Lower Extremity Dressing, Positioning, Precautions/Restrictio ns, Role of Occupational Therapy, Safety/Judgment, Standing Balance to Improve Swisher with ADLs/Self-Care, Transfer - Sit to Stand, Transfer - Toilet/Commode THERAPEUTIC SKILLS USED Activity Dosing, Cuing Tactile, Cuing Verbal, Cuing Visual FUNCTIONAL STATUS Activities of Daily Living Assist Level Additional Information Feeding Independent Grooming Minimal Assistance Bathing Upper Body Minimal Assistance Bathing Lower Body Maximal Assistance Dressing Upper Body Minimal Assistance Dressing Lower Body Maximal Assistance Toileting Maximal Assistance Mobility Assist Level Additional Information Bed Mobility Sit To Supine: Minimal Assistance Sit to Stand Moderate Assistance, Additional Information x1 from chair; x1 from EOB Stand to Sit Moderate Assistance Bed to Chair Maximal Assistance, Additional Information Bed To Chair Transfer Type: Stepping Bed To Chair Transfer Equipment: Gait Belt, Wheeled Walker pt very impulsive and unsafe with walker use despite max cues for sequencing and safety. pt requried physical assist to manage FWW. half way to commode from chair patient attempting to sit- assist to correct and safely finish transfer to chair Toilet/Commode Moderate Assistance, Additional Information chair to BSC; BSC to bed Shower Functional Mobility GOALS Patient will demonstrate progress with self-care, cognitive and/or coping needs identified to allow safe discharge to home with available support and/or physical assistance. Grooming with: Supervision Upper Body Bathing with: Supervision Upper Body Dressing with: Supervision Lower Body Bathing with: Supervision Lower Body Dressing with: Supervision Toilet Hygiene with: Supervision Chair Transfer with: Supervision Toilet Transfer with: Supervision Tolerate (minutes of functional activity): 20 Functional Activity with: Supervision Rehab Potential: Fair PLAN OT Frequency: 5 Times Per Week Treatment Interventions: Self Care/Home Management, Education Plan for Next Vis (more content not included)... [facility] THERAPY NT HNO ID: [id number] Author: CARMELINA LIZAMA, PT Service: Physical Therapy Author Type: Physical Therapist Type: Therapy (PT/OT/Speech/Resp) Filed: 10/16/2023 10:44 Note Text: Physical Therapy Evaluation Summary SERVICE DATE: 10/16/2023 SERVICE TIME: 0957 to 1029 Interview portion of evaluation [phone] ROOM: [place] [address] PT 6 Clicks Score: 12 DISCHARGE RECOMMENDATIONS Acute Rehab Recommended Discharge Disposition Due to: Patient requires active, intensive rehabilitation by multiple therapy disciplines. Anticipate the patient will tolerate 3 hours of therapy per day., Functional status decline, Requires multiple therapy disciplines ASSESSMENT Response to Therapy Interventions: Good Participation in Activities Pt tolerated PT eval fairly,. She was limited by pain, instability, and decreased safety with all movement. She would be unsafe to return home at this time. She would benefit from continued therapy PRECAUTIONS Fall Risk, Weight Bearing Restrictions, Brace long leg splint on L LE Left Lower Extremity Weight Bearing Status: WBAT CURRENT HOSPITAL COURSE s/p elective L knee extensor mechanism repair and polyethylene exchange on 10/15/23 Relevant Past Medical History: OA, L TKA HOME LIVING Patient Lives With: Spouse Assistance Available: 24-Hour Entry To Home: Stairs, With Rail Number Of Stairs Into Home: 3 Number Of Stairs To Bed/Bath: 0 Tub/Shower Type: walk in shower Equipment Owned: Grab Bars- Shower, Shower Chair, Walker- Wheeled, Wheelchair- Manual, Cane PRIOR FUNCTIONAL LEVEL Within Functional Limits Pt reports independence with all activity prior to admission. She reports ambulating with a wheeled walker SUBJECTIVE im ready THERAPY DIAGNOSIS Unsteadiness on feet, Abnormalities of gait and mobility-other TREATMENT INTERVENTIONS Therapeutic Activity (73974) Timed Code Treatment (minutes): 32 Skilled Treatment Time (minutes): 32 TRAINING AND EDUCATION PROVIDED Anatomy and Impact on Deficits, Assistive Device Use, Bed Mobility, Benefits of In-Hospital Mobility, Discharge Planning, Disease Specific Education, Expected Functional Level, Falls Prevention, Gait Pattern, Reduction of Deviations, Positioning, Precautions/Restrictio ns, Role of Physical Therapy, Transfers THERAPEUTIC SKILLS USED Cues for Sequencing/Proper Technique for Activity, Cuing Verbal, Movement Facilitation, Physical Assist FUNCTIONAL STATUS Bed Mobility Supine To Sit: Moderate Assistance, Additional Information assist with L LE Transfers Sit To Stand: Moderate Assistance, Additional Information constant cuing for safety. Pt impulsive and unsafe with movement at times Stand To Sit: Moderate Assistance Bed to Chair Gait Moderate Assistance Gait Device: Wheeled Walker General Deviations/Observation s: Antalgic gait, Loss of Balance, Non-functional gait speed, Shuffling Gait, Step length decreased Gait Distance (feet): 5 Stairs GOALS Patient will demonstrate understanding of importance of mobility during hospital stay and resolve all functional needs identified. Transfer Supine to/from Sit with: Supervision Transfer Sit to/from Stand with: Supervision Ambulate with: Supervision Distance: 80 Device: Wheeled Walker Ambulate Up and Down Steps with: Supervision Number of Steps: 3 Device: Rail Rehab Potential: Good PLAN PT Frequency: 5 Times Per Week Treatment Interventions: Education, Functional Mobility Training, Balance Training, Neuromuscular Re-education Plan for Next Visit: Bed Mobility, Fall Prevention, Gait Training, Sit to Stand Transfers, Sitting Balance, Stair Training, Standing Balance, Standing Tolerance SIGNATURE: Carmelina Lizama PT PATIENT NAME: Ledy Ching DATE: October 16, 2023 TIME: 10:44 AM [facility] ANES POSTPROC EVALon 024 ANES POSTPROC EVAL HNO ID: [id number] Author: JOHN CRAIG DO Service: Anesthesiology Author Type: Anesthesiologist Type: Anesthesia Postprocedure Evaluation Filed: 10/15/2023 16:27 Note Text: POST ANESTHESIA EVALUATION NOTE : 1945 Procedure Summary Date: 10/15/23 Room / Location: OR 02 / OR Anesthesia Start: 1218 Anesthesia Stop: 1443 Procedure: REALIGNMENT PATELLA, left knee extensor mechanism reconstruction (Left: Knee) Diagnosis: Other specified injury of left quadriceps muscle, fascia and tendon, initial encounter (Other specified injury of left quadriceps muscle, fascia and tendon, initial encounter [S76.192A]) Surgeons: Marivel Tracy MD Responsible Provider: John Craig DO Anesthesia Type: general ASA Status: 3 Anesthesia Type: general Airway Type: LMA Last Vitals Vitals Value Taken Time BP 148/67 10/15/23 1615 Temp 37.2 ?C (98.9 ?F) 10/15/23 1445 Pulse 61 10/15/23 1626 Resp 16 10/15/23 1600 SpO2 98 % 10/15/23 1626 Vitals shown include unfiled device data. Post Anesthesia Patient Status Patient Evaluation: PACU. PACU/ICU Patient Condition: stable. Anticipated Disposition: inpatient floor planned admission. Neurological Status: aware and responsive. Pulmonary Status: breathing comfortably on supplemental oxygen Airway Control: returned to baseline unsupported. Cardiovascular Status: stable. Pain Management: clinically adequate Postoperative Hydration: acceptable. Intraoperative Events: no significant anesthesia events Post Operative Nausea/Vomiting Status: no significant post operative nausea or vomiting Recommendation: further care per PACU/ICU/floor team. Anesthesia Observations No Documentation SIGNATURE: John Craig DO PATIENT NAME: Ledy Ching DATE: October 15, 2023 TIME: 4:27 PM CSN: [id number] [facility] ANES PRE-OPon 10-15-2023 ANES PRE-OP HNO ID: [id number] Author: JOHN CRAIG DO Service: Anesthesiology Author Type: Anesthesiologist Type: Anesthesia Preprocedure Evaluation Filed: 10/15/2023 12:00 Note Text: ANESTHESIOLOGY DAY OF SURGERY NOTE : 1945 Procedure Information Date/Time: 10/15/23 1200 Procedures: REVISION JOINT TOTAL KNEE FEMORAL AND ENTIRE TIBIAL COMPONENT (Left: Knee) REALIGNMENT PATELLA (Left: Knee) Location: MR OR 02 / MR OR Surgeons: Marivel Tracy MD Estimated body mass index is 23.76 kg/m? as calculated from the following: Height as of this encounter: 167.6 cm (5' 6). Weight as of this encounter: 66.8 kg (147 lb 3.2 oz). Most recent hematocrit and potassium results: Hematocrit 38.0 10/08/2023 Potassium 3.5 10/08/2023 Relevant Problems CARDIO (+) Cardiac murmur (+) Hypertension GI (+) GERD (gastroesophageal reflux disease) NEURO-PSYCH (+) History of hypertension (+) History of osteopenia Other (+) Inflammatory arthritis I - PHYSICAL EVALUATION AIRWAY Patient intubated: No. Tracheostomy tube not present Mallampati: I. TM distance: >3 FB. Neck ROM: full ROM without neurological symptoms. Mouth opening: adequate. Short neck: no. Thick neck: no DENTAL Dental findings: teeth intact. Additional exam findings: yes. CARDIOVASCULAR Normal cardiovascular observations. PULMONARY Normal pulmonary observations. II - ANESTHESIA PLAN ASA Score: 3 Anesthetic Plan: general Airway type: LMA NPO Status: adequate Beta Olimpia Monitoring Plan Monitoring plan: standard ASA. Post Procedure Analgesic Plan Postoperative analgesic plan: parenteral or oral opioids, multimodal analgesia and peripheral nerve block. Informed Consent Anesthetic risks, benefits, alternatives, personnel and consent discussed: yes. Patient / Responsible Green Party agrees to proceed: yes Patient / Surrogate agrees to blood products: Yes Significant changes in the patient condition since the History and Physical, not otherwise documented in primary service progress note: no. Potential Anesthesia issues that may suggest increased risk of complications or contraindication to planned procedure: none. Vitals Value Taken Time BP 141/65 10/15/23 1143 Pulse 58 10/15/23 1155 Resp 16 10/15/23 1143 Temp 36.6 ?C (97.8 ?F) 10/15/23 0943 SpO2 93 % 10/15/23 1155 Vitals shown include unfiled device data. Facility-Administered Medications as of 10/15/2023 Medication Dose Route Frequency - lidocaine (PF) 10 mg/mL (1 %) 2 mg injection (XYLOCAINE) 0.2 mL INTRADERMAL PRN - lactated ringers iv infusion 30 mL/hr INTRAVENOUS CONTINUOUS - NaCl 0.9% iv flush bag 20 mL INTRAVENOUS PRN - ceFAZolin iv piggyback 2 g in D5W (iso-osmotic) 100 mL (ANCEF) 2 g INTRAVENOUS ONCE - [COMPLETED] vancomycin iv piggyback 1 g in D5W 200 mL (VANCOCIN) 0.015 g/kg/dose INTRAVENOUS ONCE Outpatient Medications as of 10/15/2023 Medication Sig - aspirin 81 mg cap Take by mouth once daily. TAKES A PREVENTATIVE/ PACC appoint. 10/08/23, pt states PCP/ Dr. Saima Mendoza does not want her to stop taiking; instructed to inform Dr. Tracy - acetaminophen (TYLENOL) 500 mg tablet Take 500 mg by mouth two times a day. - carvedilol (COREG) 3.125 mg tablet Take 12.5 mg by mouth two times a day with meals. PACC appoint. Pt states she only takes 1 x day - calcium carbonate (CALTRATE) 600 mg calcium (1,500 mg) tab Take by mouth. STOPPED FOR SURGERY LAST DOSE 09/30 - ascorbic acid, vitamin C, (VITAMIN C) 500 mg tablet Take by mouth. STOPPED FOR SURGERY 09/30 LAST DOSE - Cholecalciferol, Vitamin D3, 50 mcg (2,000 unit) cap Take by mouth. STOPPED FOR SURGERY LAST DOSE 09/30 - lisinopril (ZESTRIL, PRINIVIL) 40 mg tablet Take 40 mg by mouth every morning. - omeprazole (PRILOSEC) 40 mg capsule Take 40 mg by mouth every evening. - hydroCHLOROthiazide (HYDRODIURIL, ESIDRIX) 50 mg tablet Take 50 mg by mouth every morning. - amLODIPine (NORVASC) 10 mg tablet every morning. - vitamin A (AQUASOL A) 10,000 unit capsule Take by mouth. STOPPED 09/30 FOR SURGERY - traZODone (DESYREL) 100 mg tablet Take 100 mg by mouth daily at bedtime. - meloxicam (MOBIC) 15 mg tablet Take 15 mg by mouth once daily. STOPPED FOR SURGERY 10/01/23 - simvastatin 20 mg tablet Take 20 mg by mouth daily at bedtime. - paroxetine 20 mg tablet Take 20 mg by mouth every morning. I have interviewed and examined the patient. I have reviewed the medical record and/or the pre-anesthesia evaluation, pertinent labs, and test results. This contains updated information obtained within 48 hours of Surgery/Procedure. SIGNATURE: John Craig DO PATIENT NAME: Ledy Ching DATE: October 15, 2023 TIME: 11:57 AM CSN: [id number] [facility] Bacteria Spec Anaerobe Culto n 10-15-2023 Bacteria identified Anaer cx Nom (Unsp spec) CULTURE, ANAEROBE: Anaerobe culture reviewed, negative at day 14. [facility] Comment on above: Performed By: #### 3 4528-0, 61020-4 #### [facility] CLIA [id number] [address] [place] [address] [place] Bacteria identified Anaer cx Nom (Unsp spec) CULTURE, ANAEROBE: Anaerobe culture reviewed, negative at day 14. [facility] Comment on above: Performed By: #### 3 4528-0, 77870-8 #### [facility] CLIA [id number] [address] [place] [address] [place] Bacteria Wnd Culton 10-15-19 Bacteria identified Cx Nom (Wound) CULTURE, WOUND: No growth 14 days GRAM STAIN: Rare Polymorphonuclear leukocytes No organisms seen [facility] Comment on above: Performed By: #### 3 4528-0, 62504-0 #### [facility] CLIA [id number] [address] [place], [place] [id number] [facility] Bacteria identified Cx Nom (Wound) CULTURE, WOUND: No growth 14 days GRAM STAIN: Rare Polymorphonuclear leukocytes No organisms seen Normal [facility] Comment on above: Performed By: #### 3 4528-0, 57490-6 #### [facility] CLIA [id number] [address] [place] [address] OF [place] HISTORY PHYSICALon HISTORY PHYSICAL HNO ID: [id number] Author: MARIVEL TRACY MD Service: Orthopaedic Surgery Author Type: Physician Type: H&P Filed: 10/15/2023 11:52 Note Text: UPDATED HISTORY AND PHYSICAL EXAMINATION SERVICE DATE: 10/15/2023 SERVICE TIME: 11:51 AM PHYSICAL EXAM MUST BE COMPLETED ON ADMISSION The History and Physical, completed within the past 30 days, has been reviewed and the patient has been examined. The contents accurately reflect the patient's condition with the following additions or revisions since the HANDP was completed. Examination of the operative extremity indicates no clinically relevant interval change. Provisional Diagnosis/Treatment Plan: Left knee extensor mechanism reconstruction, possible revision left total knee arthroplasty This HANDP can be found in the chart. SIGNATURE: Marivel Tracy MD PATIENT NAME: Ledy Ching DATE: October 15, 2023 TIME: 11:51 AM Normal [facility] OPERATIVE NOon 10-15-2023 OPERATIVE NO HNO ID: [id number] Author: MARIVEL TRACY MD Service: Orthopaedic Surgery Author Type: Physician Type: Operative Report Filed: 10/15/2023 15:54 Note Text: Operative Report Patient Name: Ledy Ching Time: 2:21 PM Date: October 15, 2023 PATIENT NAME: Ledy Ching LOG ID: [id number] Surgery Date: 10/15/2023 Surgeon(s) and Steam Tunnel Feeder(s): Surgeons and Role: * Marivel Tracy MD - Primary * Jamel Bartlett MD - Assisting Procedure(s): Left knee extensor mechanism reconstruction, left total knee arthroplasty polyethylene exchange Anesthesia: General 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 9 mm was removed Complications: None apparent at conclusion of case Indication: The patient is a 78-year-old female who previously underwent left total knee arthroplasty by an outside surgeon. She sustained an inferior pole patella avulsion fracture which was fixed by her primary surgeon. Unfortunate this went on to failure. She then presented to my office for a second opinion. Due to the chronic nature of her extensor mechanism disruption I recommended extensor mechanism reconstruction utilizing mesh. She understood the potential need for revision arthroplasty. The risks, benefits, and alternatives of all treatment options, including conservative management, were discussed with the patient. The recommendation was to proceed with left knee extensor mechanism reconstruction, possible revision left total knee arthroplasty. The risks of this procedure were explained. Some of the risks discussed included infection, injury to blood vessels/nerves, DVT/PE, persistent pain, subsequent surgery, and anesthetic complications. Inherently higher risk of complications due to a revision type procedure were reiterated. After this discussion, the patient wished to proceed with surgery and written informed consent was obtained. Questions were invited and answered. The patient understood that the best potential outcome would be to nearly neutral extension and flexion to 90 degrees. Description of Procedure: The patient was identified in the pre-operative area and the correct operative site was marked. The patient was in agreement with the operative site. The patient was brought to the operating room and transferred onto the operating table. Anesthesia was then successfully administered by the anesthesia team. The patient was positioned supine and care was taken to ensure all bony prominences and nerves were well padded and free of compression. The operative extremity was prepped and draped in a standard sterile fashion. A time out was held to confirm the correct patient, procedure, operative site, preoperative antibiotic administration, and implant availability. The entire team was in agreement. The previous midline incision was opened and dissection was taken down to the level the extensor mechanism. Distal to the patella which was noted to be greatly high riding was slowly scar tissue. An arthrotomy was performed medially and soft tissue was elevated off of the proximal tibia just proximal to the tibial tubercle. The knee passively extended to neutral. Femoral and tibial components were well-fixed and well aligned. I elected to proceed slowly with extensor mechanism reconstruction and did not feel that a revision total knee arthroplasty would be warranted. A bur was utilized to open the anterior cortex of the tibia just proximal to the tibial tubercle. Cement was then interdigitated into this trough and unitized Marlex mesh was introduced into this trough which also had a cement interdigitated into it. This was then held into place as this fully hardened. After this fully hardened maximal tension was pulled distally onto the quadriceps tendon and the mesh was tacked to the quadriceps tendon and maximal tension. This was done utilizing a #5 Ethibond. After this had been adequately secured this was then reinforced with #1 Ethibond. The vastus medialis which had been fully mobilized it was then pulled distal-medial to partially cover to the best of my ability the mesh. This was then sutured in place using #5 Ethibond. At this point the arthrotomy was then closed with #1 strata fix to reinforce the closure. Prior to finishing the arthrotomy vancomycin powder, 1 g, was placed into the joint. The knee was never flexed after the mesh was tensioned. The subcutaneous layer was closed with 2-0 Vicryl and the skin was closed with 2-0 nylon. The skin was not under tension at the time of closure. A Prevena incisional wound VAC was placed for prophylaxis. Intermittently throughout the case the knee wa (more content not included)... Normal [facility] SURGICAL PATHOLOGYon CASE REPORT Normal [facility] Comment on above: Order Comment: Speci men Type: BLOOD SPECIMEN Ordering Facility: [facility] Address: [address] [place] [address] Result Comment: Surg ica Pathology Report Case: [id number] Authorizing Provider: Marivel Tracy MD Collected: 10/15/2023 02:17 PM Ordering Location: [facility] Surgery Received: 10/16/2023 07:46 AM Pathologist: Lauren Kay MD Specimen: Hardware/Device/Foreign Body, Left knee hardware, gross only Performed By: #### 5 8410-2 #### [facility] CLIA [id number] [address] [place] [address] CLINICAL HISTORY Normal [facility] Comment on above: Order Comment: Speci tim Type: BLOOD SPECIMEN Ordering Facility: [facility] Address: [address] [place] [address] Result Comment: Pre- op diagnosis: Other specified injury of left quadriceps muscle, fascia and tendon, initial encounter [S76.192A] Performed By: #### 5 8410-2 #### [facility] CLIA [id number] [address] [place] [address] FINAL DIAGNOSIS Normal [facility] Comment on above: Order Comment: Speci men Type: BLOOD SPECIMEN Ordering Facility: [facility] Address: [address] [place] [address] Result Comment: A. H ardware/Device/Foreign Body, left knee, explantation: -Left knee polyethylene component, gross diagnosis only. Performed By: #### 5 8410-2 #### [facility] CLIA [id number] [address] [place] [address] FIN[address]FORMING LAB Normal [facility] Comment on above: Order Comment: Speci tim Type: BLOOD SPECIMEN Ordering Facility: [facility] Address: [address] [place] [address] Result Comment: Diag nostic interpretation performed at [facility], [address] [place] [address] CLIA# [id number] Marine Diesel Mechanic: Riya Shannon M.D. Performed By: #### 5 8410-2 #### [facility] CLIA [id number] [address] [place] [address] GROSS DESCRIPTION Normal [facility] Comment on above: Order Comment: Speci tim Type: BLOOD SPECIMEN Ordering Facility: [facility] Address: [address] [place] [address] Result Comment: A. H ardware/Device/Foreign Body Received fresh labeled with the patient's name and left knee hardware is a 7 x 4.8 x 1.4 cm white, opaque, plastic like object grossly consistent with a prosthetic tibial plateau. No sections are submitted. Gross only. Gross examination performed at [facility], [address] [place] [address] CLIA#[id number] BJA October 16, 2023 8:53 AM Performed By: #### 5 8410-2 #### [facility] CLIA [id number] [address] [place] [address] MICROSCOPIC DESCRIPTION Gross examinatio n only. [facility] Comment on above: Order Comment: Speci men Type: BLOOD SPECIMEN Ordering Facility: [facility] Address: [address] [place] [address] Performed By: #### 5 8410-2 #### [facility] CLIA [id number] [address] [place] [address] XR KNEE 2V AP/LAT LTon 10-14 XR KNEE 2V AP/LAT LT * * *Final Report* * * DATE OF EXAM: Oct 15 2023 3:44PM RHX [id number] - XR KNEE 2V AP/LAT LT / PROCEDURE REASON: Post Operative Assessment * * * * Physician Interpretation * * * * XR KNEE 2V AP/LAT LT Ordering Physician: MARIVEL TRACY 10/15/2023 3:44 PM 2 VIEWS LEFT KNEE: Clinical Statement: Postoperative assessment Comparison: None FINDINGS: A total knee arthroplasty has been placed. No fracture or dislocation. Anteriorly there is some cement that extends into the anterior recess. Soft tissue gas and edema are noted. A wound VAC/drain is seen over the anterior distal thigh IMPRESSION: No acute osseous abnormality Small amount of cement extending into the anterior and inferior portion of the anterior recess. Soft tissue gas and edema consistent with recent placement Accounts Receivable Bookkeeper: PSCB Transcribe Date/Time: Oct 16 2023 7:48A Dictated by : ROBER TSE MD This examination was interpreted and the report reviewed and electronically signed by: ROBER TSE MD on Oct 16 2023 7:52AM EST [id number] [facility] NURSING PROGon 10-14-2023 NURSING PROG HNO ID: [id number] Author: ALEIDA FIELD, RN Service: Nursing Author Type: Registered Nurse Type: Nursing Progress Note Filed: 10/14/2023 13:28 Note Text: PRE-PROCEDURE INSTRUCTIONS TO PREPARE FOR YOUR PROCEDURE: Your arrival time for your procedure is 0915. Do NOT eat any solid foods after MIDNIGHT the night prior to your procedure - this includes gum or mints. You can drink clear liquids* up until 0715, which is 2 hours before your arrival time. *Clear liquids = water, carbohydrate drink (sports drink that is clear or yellow in color), Ensure Pre-Surgery (given by MARYCARMEN or your DrLia), fruit juice without pulp (apple/cranberry), clear tea, black coffee (no cream). NO CARBONATED BEVERAGES AND NO ALCOHOL. Shower the morning of the procedure, put on clean clothes, and have clean sheets for your bed to help prevent infection after your procedure. Leave all valuables such as jewelry including rings, piercings, wallets, and purses at home. Wear comfortable, loose-fitting clothing. If you wear glasses or contacts, please bring a case. SPECIAL INSTRUCTIONS: If instructed, bring your first voided urine specimen with you. If you were provided skin preparation to use prior to your procedure, complete this as directed. If a bowel preparation has been ordered by your physician, it is very important to follow the bowel prep instructions or your procedure may need to be rescheduled. If you use crutches or a walker, bring them with you. If you have a home CPAP/BIPAP machine, bring it with you. If you were instructed to complete a fleets enema or bowel prep, complete as directed. Bring copy of Living Will/Power of Injector Assembler. Do not smoke or chew. If you use tobacco, quit or at least cut down before surgery. Do not smoke or chew after midnight the day before your surgery. This effects bleeding, infection, healing, and so much more. Do not take any Diet or Herbal Supplements 2 weeks prior to your surgery date. Please notify your physician if there is any change in your physical condition such as a cold, cough, fever, sore throat, or skin irritation near the surgical site. Visitors under the age of 14 are restricted in the Surgery Center. UPON ARRIVAL: Access to [facility] (the [facility]) is located on [address] Cigarette Stamper parking is available for your convenience from 5am-5pm- there is a $5.00 charge for this service. Take the elevators directly inside the entrance to the 1st Floor Surgery Lobby. Sign in at the podium located to the left when you get off the elevators. A payment may be expected at the time of service. One visitor may come back to the preoperative area with you. The preoperative staff will be reviewing your medical history, please let them know if you prefer not to have a visitor with you during this time. Once you are ready for your procedure, two visitors at a time are permitted in your preprocedure room. mmary: dos meds MEDICATION INSTRUCTIONS PRIOR TO SURGERY Please read below carefully for your personalized instructions. Medications: If you are on blood thinner or anticoagulants including aspirin, please confirm with your surgical team on when to stop these medications. Unless instructed differently by your surgical team, stay on all of your medications until your surgery. Pre-Surgery Med Instructions Medication Instructions aspirin 81 mg cap Follow Prescribers Instructions acetaminophen (TYLENOL) 500 mg tablet PRN if needed carvedilol (COREG) 3.125 mg tablet Take morning of surgery with a sip of water, no other fluids calcium carbonate (CALTRATE) 600 mg calcium (1,500 mg) tab Follow Surgeon's instructions ascorbic acid, vitamin C, (VITAMIN C) 500 mg tablet Follow Surgeon's instructions Cholecalciferol, Vitamin D3, 50 mcg (2,000 unit) cap Follow Surgeon's instructions lisinopril (ZESTRIL, PRINIVIL) 40 mg tablet DO NOT TAKE MORNING OF SURGERY omeprazole (PRILOSEC) 40 mg capsule hydroCHLOROthiazide (HYDRODIURIL, ESIDRIX) 50 mg tablet DO NOT TAKE MORNING OF SURGERY amLODIPine (NORVASC) 10 mg tablet Take morning of surgery with a sip of water, no other fluids vitamin A (AQUASOL A) 10,000 unit capsule Follow Surgeon's instructions traZODone (DESYREL) 100 mg tablet meloxicam (MOBIC) 15 mg tablet Follow Surgeon's instructions simvastatin 20 mg tablet paroxetine 20 mg tablet Take morning of surgery with a sip of water, no other fluids If you have any medication changes between receiving these instructions and your surgery date, please provide this updated information with the nurse who calls you the week day prior to your surgical procedure so we can update your list and provide you with updated instructions for the morning of your procedure. Normal [facility] ACTIVATED PARTIAL THROMBOPLA STIN TIMEon 10-08-2023 aPTT Coag (PPP) [Time] 25.[address] [facility] CBC panel Auto (Bld)on 10-07 Erythrocyte distribution width (RBC) [Ratio] 13.9 % 11.5 - 15.0 % [facility] Hematocrit (Bld) [Volume fraction] 38.0 % 36.0 - 46.0 % [facility] Hemoglobin (Bld) [Mass/Vol] 12.7 g/dL 11.5 - 15.5 g/dL [facility] Interpretation and review of laboratory results Normal [facility] MCH (RBC) [Entitic mass] 28.3 pg 26.0 - 34.0 pg [facility] MCHC (RBC) [Mass/Vol] 33.4 g/dL 30.5 - 36.0 g/dL [facility] MCV (RBC) [Entitic vol] 84.8 fL 80.0 - 100.0 fL [facility] Nucleated RBC (Bld) [#/Vol] NINF [facility] Platelet mean volume (Bld) [Entitic vol] 10.2 fL 9.0 - 12.7 fL [facility] Platelets (Bld) [#/Vol] 303 10*3/uL [facility] RBC (Bld) [#/Vol] 4.48 10*6/uL 3.90 - 5.2 0 m/uL [facility] WBC (Bld) [#/Vol] 8.07 10*3/uL [facility] Erythrocyte distribution width (RBC) [Ratio] 13.9 % Normal 11.5-15.0 [facility] Comment on above: Order Comment: Speci men Type: BLOOD SPECIMEN Ordering Facility: [facility] [address] [place] [address] Performed By: #### 5 8410-2 #### [facility] CLIA [id number] [address] [place] [address] [place] Hematocrit (Bld) [Volume fraction] 38.0 % Normal 36.0-46.0 [facility] Comment on above: Order Comment: Speci men Type: BLOOD SPECIMEN Ordering Facility: [facility] Address: [address] [place] [address] Performed By: #### 5 8410-2 #### [facility] CLIA [id number] [address] [place] [address] [place] Hemoglobin (Bld) [Mass/Vol] 12.7 g/dL Normal 11.5-15.5 [facility] Comment on above: Order Comment: Speci men Type: BLOOD SPECIMEN Ordering Facility: [facility] Address: [address] [place] [address] Performed By: #### 5 8410-2 #### [facility] CLIA [id number] [address] [place] [address] [place] MCH (RBC) [Entitic mass] 28.3 pg Normal 26.0-34.0 [facility] Comment on above: Order Comment: Speci men Type: BLOOD SPECIMEN Ordering Facility: [facility] Address: [address] [place] [address] Performed By: #### 5 8410-2 #### [facility] CLIA [id number] [address] [place] [address] [place] MCHC (RBC) [Mass/Vol] 33.4 g/dL Normal 30.5-36.0 [facility] Comment on above: Order Comment: Speci men Type: BLOOD SPECIMEN Ordering Facility: [facility] Address: [address] [place] [address] Performed By: #### 5 8410-2 #### [facility] CLIA [id number] [address] [place] [address] [place] MCV (RBC) [Entitic vol] 84.8 fL Normal 80.0-100.[address] [facility] Comment on above: Order Comment: Speci men Type: BLOOD SPECIMEN Ordering Facility: [facility] Address: [address] [place] [address] Performed By: #### 5 8410-2 #### [facility] CLIA [id number] [address] [place] [address] [place] Nucleated RBC (Bld) [#/Vol] 10*3/uL Normal <0.01 [facility] Comment on above: Order Comment: Speci men Type: BLOOD SPECIMEN Ordering Facility: [facility] Address: [address] [place] [address] Performed By: #### 5 8410-2 #### [facility] CLIA [id number] [address] [place] [address] [place] Platelet mean volume (Bld) [Entitic vol] 10.2 fL Normal 9.0-12.7 [facility] Comment on above: Order Comment: Speci men Type: BLOOD SPECIMEN Ordering Facility: [facility] Address: [address] [place] [address] Performed By: #### 5 8410-2 #### [facility] CLIA [id number] [address] [place] [address] [place] Platelets (Bld) [#/Vol] 303 10*3/uL Normal 150-400 [facility] Comment on above: Order Comment: Speci men Type: BLOOD SPECIMEN Ordering Facility: [facility] Address: [address] [place] [address] Performed By: #### 5 8410-2 #### [facility] CLIA [id number] [address] [place] [address] [place] RBC (Bld) [#/Vol] 4.48 10*6/uL Normal 3.90-5.20 [facility] Comment on above: Order Comment: Speci men Type: BLOOD SPECIMEN Ordering Facility: [facility] Address: [address] [place] [address] Performed By: #### 5 8410-2 #### [facility] CLIA [id number] [address] [place] [address] [place] WBC (Bld) [#/Vol] 8.07 10*3/uL Normal 3.70-11.00 [facility] Comment on above: Order Comment: Speci men Type: BLOOD SPECIMEN Ordering Facility: [facility] Address: [address], [place] [address] Performed By: #### 5 8410-2 #### [facility] CLIA [id number] [address] [place] [address] [place] Comprehensive metabolic 2000 panelon 10-08-2023 Albumin [Mass/Vol] 3.8 g/dL 3.2 - 5.0 g/dL [facility] ALP [Catalytic activity/Vol] 69 U/L 45 - 117 U/L [facility] ALT [Catalytic activity/Vol] 11 U/L Low 13 - 61 U/L [facility] Comment on above: Results may be false ly depressed after the administration of Sulfasalazine and/or Sulfapyridine. Anion gap [Moles/Vol] 6 mmol/L 5 - 16 mmol/L [facility] AST [Catalytic activity/Vol] 20 U/L 8 - 34 U/L [facility] Comment on above: Results may be false ly depressed after the administration of Sulfasalazine and/or Sulfapyridine. Bilirubin [Mass/Vol] 0.4 mg/dL 0.2 - 1 .0 mg/dL [facility] Calcium [Mass/Vol] 10.1 mg/dL 8.5 - 10. 5 mg/dL [facility] Chloride [Moles/Vol] 104 mmol/L 98 - 10 7 mmol/L [facility] CO2 [Moles/Vol] 30 mmol/L 21 - 32 mmol/L [facility] Creatinine [Mass/Vol] 0.70 mg/dL 0.51 - 0.95 mg/dL [facility] Comment on above: Patients receiving e ither N-Acetylcysteine (NAC) or Metamizole prior to venipuncture, may have falsely depressed results. GFR/1.73 sq M.predicted among non-blacks MDRD (S/P/Bld) [Vol rate/Area] 89 mL/min/{1.73_m2} - PINF [facility] Comment on above: Estimated Glomerular Filtration Rate (eGFR) is calculated using the 2020 CKD-EPI creatinine equation. This equation utilizes serum creatinine, sex, and age as parameters. The creatinine assay has traceable calibration to isotope dilution-mass spectrometry. Refer to KDIGO guidelines for clinical interpretation. In patients with unstable renal function, e.g. those with acute kidney injury, the eGFR may not accurately reflect actual GFR. Glucose [Mass/Vol] 96 mg/dL 70 - 100 mg/dL [facility] Comment on above: The [place] Diabete s Association (ADA) provides guidance for cutoff values for fasting glucose and random glucose. The ADA defines fasting as no caloric intake for at least 8 hours. Fasting plasma glucose results between 100 to 125 mg/dL indicate increased risk for diabetes (prediabetes). Fasting plasma glucose results greater than or equal to 126 mg/dL meet the criteria for diagnosis of diabetes. In the absence of unequivocal hyperglycemia, results should be confirmed by repeat testing. In a patient with classic symptoms of hyperglycemia or hyperglycemic crisis, random plasma glucose results greater than or equal to 200 mg/dL meet the criteria for diagnosis of diabetes. Reference: Standards of Medical Care in Diabetes 2016, [place] Diabetes Association. Diabetes Care. 2016.39(Suppl 1). Results may be falsely elevated after the administration of Sulfapyridine. Results may be falsely depressed after the administration of Sulfasalazine. Interpretation and review of laboratory results Abnormal [facility] Potassium [Moles/Vol] 3.5 mmol/L 3.5 - 5.1 mmol/L [facility] Protein [Mass/Vol] 6.9 g/dL 6.0 - 8.5 g/dL [facility] Sodium [Moles/Vol] 140 mmol/L 136 - 145 mmol/L [facility] Urea nitrogen [Mass/Vol] 27 mg/dL High 7 - 26 mg/dL [facility] Albumin [Mass/Vol] 3.8 g/dL Normal 3.2-5.0 [facility] Comment on above: Order Comment: Georgie dumont Type: BLOOD SPECIMEN Ordering Facility: [facility] Address: [address] [place] [address] Performed By: #### 2 4323-8 #### [facility] CLIA [id number] [address] [place] [address] [place] ALP [Catalytic activity/Vol] 69 U/L Normal 45-117 [facility] Comment on above: Order Comment: Georgie dumont Type: BLOOD SPECIMEN Ordering Facility: [facility] Address: [address] [place] [address] Performed By: #### 2 4323-8 #### [facility] CLIA [id number] [address] [place] [address] [place] ALT [Catalytic activity/Vol] 11 U/L Low 13-61 [facility] Comment on above: Order Comment: Speci men Type: BLOOD SPECIMEN Ordering Facility: [facility] Address: [address] [place] [address] Result Comment: Resu lts may be falsely depressed after the administration of Sulfasalazine and/or Sulfapyridine. Performed By: #### 2 4323-8 #### [facility] CLIA [id number] [address] [place] [address] [place] Anion gap [Moles/Vol] 6 mmol/L Normal 5-16 [facility] Comment on above: Order Comment: Ritoi tim Type: BLOOD SPECIMEN Ordering Facility: [facility] Address: [address] [place] [address] Performed By: #### 2 4323-8 #### [facility] CLIA [id number] [address] [place] [address] [place] AST [Catalytic activity/Vol] 20 U/L Normal 8-34 [facility] Comment on above: Order Comment: Speci men Type: BLOOD SPECIMEN Ordering Facility: [facility] Address: [address] [place] [address] Result Comment: Resu lts may be falsely depressed after the administration of Sulfasalazine and/or Sulfapyridine. Performed By: #### 2 4323-8 #### [facility] CLIA [id number] [address] [place] [address] [place] Bilirubin [Mass/Vol] 0.4 mg/dL Normal 0.2-1.0 [facility] Comment on above: Order Comment: Ritoi men Type: BLOOD SPECIMEN Ordering Facility: [facility] Address: [address] [place] [address] Performed By: #### 2 4323-8 #### [facility] CLIA [id number] [address] [place] [address] [place] Calcium [Mass/Vol] 10.1 mg/dL Normal 8.5-10.5 [facility] Comment on above: Order Comment: Speci men Type: BLOOD SPECIMEN Ordering Facility: [facility] Address: [address] [place], [place] [address] Performed By: #### 2 4323-8 #### [facility] CLIA [id number] [address] [place], [place] [address] [place] Chloride [Moles/Vol] 104 mmol/L Normal 98-107 [facility] Comment on above: Order Comment: Speci men Type: BLOOD SPECIMEN Ordering Facility: [facility] Address: [address] [place] [address] Performed By: #### 2 4323-8 #### [facility] CLIA [id number] [address] [place] [address] [place] CO2 [Moles/Vol] 30 mmol/L Normal 21-32 [facility] Comment on above: Order Comment: Speci men Type: BLOOD SPECIMEN Ordering Facility: [facility] Address: [address] [place] [address] Performed By: #### 2 4323-8 #### [facility] CLIA [id number] [address] [place] [address] [place] Creatinine [Mass/Vol] 0.70 mg/dL Normal 0.51-0.95 [facility] Comment on above: Order Comment: Speci men Type: BLOOD SPECIMEN Ordering Facility: [facility] Address: [address] [place] [address] Result Comment: Petrona ents receiving either N-Acetylcysteine (NAC) or Metamizole prior to venipuncture, may have falsely depressed results. Performed By: #### 2 4323-8 #### [facility] CLIA [id number] [address] [place] [address] [place] Creatinine and Glomerular filtration rate.predicted panel (S/P/Bld) 89 mL/min/1.73m??? Normal >=60 [facility] Comment on above: Order Comment: Speci men Type: BLOOD SPECIMEN Ordering Facility: [facility] Address: [address] [place] [address] Result Comment: Jessica mated Glomerular Filtration Rate (eGFR) is calculated using the 2020 CKD-EPI creatinine equation. This equation utilizes serum creatinine, sex, and age as parameters. The creatinine assay has traceable calibration to isotope dilution-mass spectrometry. Refer to KDIGO guidelines for clinical interpretation. In patients with unstable renal function, e.g. those with acute kidney injury, the eGFR may not accurately reflect actual GFR. Performed By: #### 2 4323-8 #### [facility] CLIA [id number] [address] [place] [address] [place] Glucose [Mass/Vol] 96 mg/dL Normal 70-100 [facility] Comment on above: Order Comment: Georgie men Type: BLOOD SPECIMEN Ordering Facility: [facility] Address: [address] [place] [address] Result Comment: The [place] Diabetes Association (ADA) provides guidance for cutoff values for fasting glucose and random glucose. The ADA defines fasting as no caloric intake for at least 8 hours. Fasting plasma glucose results between 100 to 125 mg/dL indicate increased risk for diabetes (prediabetes). Fasting plasma glucose results greater than or equal to 126 mg/dL meet the criteria for diagnosis of diabetes. In the absence of unequivocal hyperglycemia, results should be confirmed by repeat testing. In a patient with classic symptoms of hyperglycemia or hyperglycemic crisis, random plasma glucose results greater than or equal to 200 mg/dL meet the criteria for diagnosis of diabetes. Reference: Standards of Medical Care in Diabetes 2016, [place] Diabetes Association. Diabetes Care. 2016.39(Suppl 1). Results may be falsely elevated after the administration of Sulfapyridine. Results may be falsely depressed after the administration of Sulfasalazine. Performed By: #### 2 4323-8 #### [facility] CLIA [id number] [address] [place], [place] [address] [place] Potassium [Moles/Vol] 3.5 mmol/L Normal 3.5-5.1 [facility] Comment on above: Order Comment: Speci men Type: BLOOD SPECIMEN Ordering Facility: [facility] Address: [address] [place] [address] Performed By: #### 2 4323-8 #### [facility] CLIA [id number] [address] [place], [place] [address] [place] Protein [Mass/Vol] 6.9 g/dL Normal 6.0-8.5 [facility] Comment on above: Order Comment: Speci men Type: BLOOD SPECIMEN Ordering Facility: [facility] Address: [address] [place] [address] Performed By: #### 2 4323-8 #### [facility] CLIA [id number] [address] [place], [place] [address] [place] Sodium [Moles/Vol] 140 mmol/L Normal 136-145 [facility] Comment on above: Order Comment: Speci men Type: BLOOD SPECIMEN Ordering Facility: [facility] Address: [address] [place] [address] Performed By: #### 2 4323-8 #### [facility] CLIA [id number] [address] [place], [place] [address] [place] Urea nitrogen [Mass/Vol] 27 mg/dL High 7-26 [facility] Comment on above: Order Comment: Speci men Type: BLOOD SPECIMEN Ordering Facility: [facility] Address: [address] [place] [address] Performed By: #### 2 4323-8 #### [facility] CLIA [id number] [address] [place], [place] [address] [place] EKGon 10-08-2023 Electrocardiogram Ventricular Rate : 6 0 BPM Atrial Rate : 60 BPM P-R Interval : 146 ms QRS Duration : 92 ms Q-T Interval : 422 ms QTC Calculation(Bazett) : 422 ms Calculated P Hurlock : 64 degrees Calculated R Hurlock : 0 degrees Calculated T Hurlock : 77 degrees Sinus rhythm with marked sinus arrhythmia Otherwise normal ECG No previous ECGs available Confirmed by OMARI BRANDT MD ([id number]) on 10/08/2023 11:44:32 PM NAME : LEDY CHING PID : [id number] : 1945 Gender : Female Race : ORD : Procedure Date : Oct 08 2023 10:52:08 Edit Date : Oct 08 2023 23:44:33 Diagnosis: Sinus rhythm with marked sinus arrhythmia Otherwise normal ECG No previous ECGs available Confirmed by OMARI BRANDT MD ([id number]) on 10/08/2023 11:44:32 PM Test Reason : Location : 2 : PEAT Overread By : OMARI BRANDT MD Edited By : OMARI BRANDT MD Referred By : DEMARCUS, Acquired by : Martinez PERALTA [facility] HbA1c (Bld)on 10-08-2023 Average glucose Estimated from glycated hemoglobin (Bld) [Mass/Vol] 126 mg/dL [facility] Comment on above: Order Comment: Georgie dumont Type: BLOOD SPECIMENOrdering Facility: [facility] Address: [address] [place] [address] Result Comment: eAG: (Estimated average glucose) is a calculated value from HgbA1c and is primary care sales representative of the average blood glucose level in the last 2-3 month period. Performed By: #### 5 5454-3 ####[facility] [id number] [place] [address] [place] HbA1c (Bld) [Mass fraction] 6.0 % High 4.3-5.6 [facility] Comment on above: Order Comment: Georgie dumont Type: BLOOD SPECIMENOrdering Facility: [facility] Address: [address] [place] [address] Result Comment: [place] Diabetes Association guidelines indicate that patients with HgbA1c in the range 5.7-6.4% are at increased risk for development of diabetes, and intervention by lifestyle modification may be beneficial. HgbA1c greater or equal to 6.5% is considered diagnostic of diabetes. Performed By: #### 5 5454-3 ####[facility] [id number] [address] [place] No Panel Informationon 10-07 Interpretation and review of laboratory results Normal [facility] PT panel Coag (PPP)on 2023 INR Coag (PPP) [Relative time] 1.0 {INR} 0.9 - 1.3 [facility] Comment on above: Vitamin K Antagonist (VKA) Therapeutic Range: INR 2 to 3 (Target INR of 2.5) Note: For patients treated with VKA drugs, such as warfarin, the [place] [employer] 2012 Guideline recommends a therapeutic INR range of 2 to 3 (target INR of 2.5). This recommendation includes high-risk patients with antiphospholipid syndrome with previous arterial or venous thromboembolism, current-generation mechanical or bioprosthetic aortic heart valve replacement. Note: Patients with mechanical aortic valve replacement and additional risk factors for thromboembolic events (atrial fibrillation, previous thromboembolism, LV dysfunction, hypercoagulable conditions) or an older generation mechanical AVR (i.e., ball in-Cage) or any mechanical MVR should have a INR therapeutic range of 2.5 to 3.5 (target INR of 3). erma Phillips. Chest 2012, 141:7S-47S Blayne MARTIN et mary. [facility] 2017, 70: 252-289 PT Coag (PPP) [Time] 10.4 s [facility] INR Coag (PPP) [Relative time] 1.0 {INR} Normal 0.9-1.3 [facility] Comment on above: Order Comment: Speci men Type: BLOOD SPECIMEN Ordering Facility: [facility] Address: [address] [place] [address] Result Comment: Rachell min K Antagonist (VKA) Therapeutic Range: INR 2 to 3 (Target INR of 2.5) Note: For patients treated with VKA drugs, such as warfarin, the [place] [employer] 2012 Guideline recommends a therapeutic INR range of 2 to 3 (target INR of 2.5). This recommendation includes high-risk patients with antiphospholipid syndrome with previous arterial or venous thromboembolism, current-generation mechanical or bioprosthetic aortic heart valve replacement. Note: Patients with mechanical aortic valve replacement and additional risk factors for thromboembolic events (atrial fibrillation, previous thromboembolism, LV dysfunction, hypercoagulable conditions) or an older generation mechanical AVR (i.e., ball in-Cage) or any mechanical MVR should have a INR therapeutic range of 2.5 to 3.5 (target INR of 3). erma Phillips. Chest 2012, 141:7S-47S Blayne MARTIN et al. [facility] 2017, 70: 252-289 Performed By: #### 3 4528-0, 86593-0 #### [facility] CLIA [id number] [address] [place] [address] [place] PT Coag (PPP) [Time] 10.4 s Normal 9.7-13.0 [facility] Comment on above: Order Comment: Speci men Type: BLOOD SPECIMEN Ordering Facility: [facility] Address: [address] [place] [address] Performed By: #### 3 4528-0, 78488-6 #### [facility] CLIA [id number] [address] [place] [address] [place] STAPHYLOCOCCUS AUREUS AND MR SA SCREEN, PCR, NASALon 10-08-2023 S. aureus and MRSA panel BRIAN+probe (Nose) Not detected Normal Not Detected [facility] Comment on above: Order Comment: Speci men Type: SWAB Ordering Facility: [facility] Address: [address] [place] [address] Performed By: #### S APCR #### [facility] CLIA [id number] [address] [place] [address] [place] STAPHYLOCOCCUS AUREUS & MRSA SCREEN, PCR, NASALon 10-08-2023 Interpretation and review of laboratory results Normal [facility] S. aureus and MRSA panel BRIAN+probe (Nose) Not detected Not Detected [facility] aPTT Coag (PPP) [Time]on Unfractionated Hepar in Therapeutic Ranges: Standard Heparin Nomogram: 53 to 78 seconds (anti-Xa level of 0.3 to 0.7 U/ml) Low Dose/ACS Nomogram: 49 to 67 seconds (anti-Xa level of 0.2 to 0.5 U/ml) Stroke Treatment Nomogram: 49 to 67 seconds (anti-Xa level of 0.2 to 0.5 U/ml) Note: The APTT therapeutic range has been determined for the current lot of laboratory APTT reagent in use throughout the [facility]. [facility] aPTT PPPon 10-08-2023 aPTT Coag (PPP) [Time] 25.9 s Normal 23.0-32.4 [facility] Comment on above: Order Comment: Speci men Type: BLOOD SPECIMEN Ordering Facility: [facility] Address: [address], [place] [address] Performed By: #### 3 4528-0, 90860-5 #### [facility] CLIA [id number] [address] [place] [address] [place] CNCOon 10-07-2023 CNCO Letter Text Normal [facility] Basic Metabolic Profile (BMP )on 09-22-2023 BUN/CRE 30.6 RATIO High 10-20 [facility] Comment on above: Order Comment: 211.1 Performed By: #### L 500.2500, L100.0500 #### [facility] [address] [place], [address] CA,Total 9.0 mg/dL Normal 8.5-10.1 [facility] Comment on above: Order Comment: 211.1 Performed By: #### L 500.2500, L100.0500 #### [facility] [address] [place], [address] Chloride [Moles/Vol] 104 mmol/L Normal 98-107 [facility] Comment on above: Order Comment: 211.1 Performed By: #### L 500.2500, L100.0500 #### [facility] [address] [place], [address] CO2 [Moles/Vol] 31.0 mmol/L Normal 21.0-32.0 [facility] Comment on above: Order Comment: 211.1 Performed By: #### L 500.2500, L100.0500 #### [facility] [address] [place], [address] Creatinine [Mass/Vol] 0.88 mg/dL Normal 0.55-1.02 [facility] Comment on above: Order Comment: 211.1 Result Comment: The validity of the calculated GFR GFRAA in patients over 70 years has not been determined. Clinical correlation is essential. Performed By: #### L 500.2500, L100.0500 #### [facility] [address] [place], [address] EST GFR - AA 80 mL/min Normal >60 [facility] Comment on above: Order Comment: 211.1 Result Comment: Afri can [place] GFR Calc Performed By: #### L 500.2500, L100.0500 #### [facility] [address] [place], [address] GAP 4 Low 5-15 [facility] Comment on above: Order Comment: . Performed By: #### L 500.2500, L100.0500 #### [facility] [address] [place], [address] GFR/1.73 sq M.predicted among non-blacks MDRD (S/P/Bld) [Vol rate/Area] 66 mL/min/{1.73_m2} Normal >60 [facility] Comment on above: Order Comment: 211.1 Result Comment: Non- GFR Calc Performed By: #### L 500.2500, L100.0500 #### [facility] [address] [place], [address] Glucose [Mass/Vol] 85 mg/dL Normal 74-106 [facility] Comment on above: Order Comment: . Performed By: #### L 500.2500, L100.0500 #### [facility] [address] [place], [address] Potassium [Moles/Vol] 4.0 mmol/L Normal 3.5-5.1 [facility] Comment on above: Order Comment: 211.1 Performed By: #### L 500.2500, L100.0500 #### [facility] [address] [place], [address] Sodium [Moles/Vol] 139 mmol/L Normal 136-145 [facility] Comment on above: Order Comment: 211.1 Performed By: #### L 500.2500, L100.0500 #### [facility] [address] [place], [address] Urea nitrogen [Mass/Vol] 27 mg/dL High 7-18 [facility] Comment on above: Order Comment: 211.1 Performed By: #### L 500.2500, L100.0500 #### [facility] [address] [place], [address] CBC-Complete Blood Cnt No Di ffon 09-22-2023 Erythrocyte distribution width (RBC) [Ratio] 14.0 % Normal 11.6-14.6 [facility] Comment on above: Order Comment: 211.1 Performed By: #### L 500.2500, L100.0500 #### [facility] [address] [place], [address] Hematocrit (Bld) [Volume fraction] 35.2 % Low 37-47 [facility] Comment on above: Order Comment: 211.1 Performed By: #### L 500.2500, L100.0500 #### [facility] [address] [place], [address] Hemoglobin (Bld) [Mass/Vol] 11.2 g/dL Low 12.0-15.0 [facility] Comment on above: Order Comment: 211.1 Performed By: #### L 500.2500, L100.0500 #### [facility] [address] [place], [address] MCH (RBC) [Entitic mass] 27.5 pg Normal 27.0-32.0 [facility] Comment on above: Order Comment: 211.1 Performed By: #### L 500.2500, L100.0500 #### [facility] [address] [place], [address] MCHC (RBC) [Mass/Vol] 31.8 g/dL Low 32-36 [facility] Comment on above: Order Comment: 211.1 Performed By: #### L 500.2500, L100.0500 #### [facility] [address] [place], [address] MCV (RBC) [Entitic vol] 86.5 fL Normal 81-99 [facility] Comment on above: Order Comment: 211.1 Performed By: #### L 500.2500, L100.0500 #### [facility] [address] [place], [address] Platelet mean volume (Bld) [Entitic vol] 10.0 fL Normal 6.2-12.0 [facility] Comment on above: Order Comment: 211.1 Performed By: #### L 500.2500, L100.0500 #### [facility] [address] [place], [address] Platelets (Bld) [#/Vol] 229 10*3/uL Normal 150-450 [facility] Comment on above: Order Comment: 211.1 Performed By: #### L 500.2500, L100.0500 #### [facility] [address] [place], [address] RBC (Bld) [#/Vol] 4.07 10*6/uL Low 4.2-5.4 [facility] Comment on above: Order Comment: 211.1 Performed By: #### L 500.2500, L100.0500 #### [facility] [address] [place], [address] RDW SD 44.2 fl High 35.1-43.9 [facility] Comment on above: Order Comment: 211.1 Performed By: #### L 500.2500, L100.0500 #### [facility] [address] [place], [address] WBC (Bld) [#/Vol] 6.3 10*3/uL Normal 4.4-11.0 [facility] Comment on above: Order Comment: 211.1 Performed By: #### L 500.2500, L100.0500 #### [facility] [address] [place], [address] Basic Metabolic Profile (BMP )on 09-15-2023 BUN/CRE 38.8 RATIO High 10-20 [facility] Comment on above: Performed By: #### L 500.2500, L100.0500 #### [facility] [address] [place], [address] CA,Total 9.0 mg/dL Normal 8.5-10.1 [facility] Comment on above: Performed By: #### L 500.2500, L100.0500 #### [facility] [address] [place], [address] Chloride [Moles/Vol] 104 mmol/L Normal 98-107 [facility] Comment on above: Performed By: #### L 500.2500, L100.0500 #### [facility] [address] [place], [address] CO2 [Moles/Vol] 32.0 mmol/L Normal 21.0-32.0 [facility] Comment on above: Performed By: #### L 500.2500, L100.0500 #### [facility] [address] [place], [address] Creatinine [Mass/Vol] 0.77 mg/dL Normal 0.55-1.02 [facility] Comment on above: Result Comment: The validity of the calculated GFR GFRAA in patients over 70 years has not been determined. Clinical correlation is essential. Performed By: #### L 500.2500, L100.0500 #### [facility] [address] [place], [address] EST GFR - AA 93 mL/min Normal >60 [facility] Comment on above: Result Comment: Afri can [place] GFR Calc Performed By: #### L 500.2500, L100.0500 #### [facility] [address] [place], [address] GAP 4 Low 5-15 [facility] Comment on above: Performed By: #### L 500.2500, L100.0500 #### [facility] [address] [place], [address] GFR/1.73 sq M.predicted among non-blacks MDRD (S/P/Bld) [Vol rate/Area] 77 mL/min/{1.73_m2} Normal >60 [facility] Comment on above: Result Comment: Non- GFR Calc Performed By: #### L 500.2500, L100.0500 #### [facility] [address] [place], [address] Glucose [Mass/Vol] 86 mg/dL Normal 74-106 [facility] Comment on above: Performed By: #### L 500.2500, L100.0500 #### [facility] [address] [place], [address] Potassium [Moles/Vol] 3.7 mmol/L Normal 3.5-5.1 [facility] Comment on above: Performed By: #### L 500.2500, L100.0500 #### [facility] [address] [place], [address] Sodium [Moles/Vol] 140 mmol/L Normal 136-145 [facility] Comment on above: Performed By: #### L 500.2500, L100.0500 #### [facility] [address] [place], [address] Urea nitrogen [Mass/Vol] 30 mg/dL High 7-18 [facility] Comment on above: Performed By: #### L 500.2500, L100.0500 #### [facility] [address] [place], [address] CBC-Complete Blood Cnt No Di ffon 09-15-2023 Erythrocyte distribution width (RBC) [Ratio] 14.0 % Normal 11.6-14.6 [facility] Comment on above: Performed By: #### L 100.0500, L500.2500 #### [facility] [address] [place], [address] Hematocrit (Bld) [Volume fraction] 34.6 % Low 37-47 [facility] Comment on above: Performed By: #### L 100.0500, L500.2500 #### [facility] [address] [place], [address] Hemoglobin (Bld) [Mass/Vol] 10.8 g/dL Low 12.0-15.0 [facility] Comment on above: Performed By: #### L 100.0500, L500.2500 #### [facility] [address] [place], [address] MCH (RBC) [Entitic mass] 26.6 pg Low 27.0-32.0 [facility] Comment on above: Performed By: #### L 100.0500, L500.2500 #### [facility] [address] [place], [address] MCHC (RBC) [Mass/Vol] 31.2 g/dL Low 32-36 [facility] Comment on above: Performed By: #### L 100.0500, L500.2500 #### [facility] [address] [place], [address] MCV (RBC) [Entitic vol] 85.2 fL Normal 81-99 [facility] Comment on above: Performed By: #### L 100.0500, L500.2500 #### [facility] [address] [place], [address] Platelet mean volume (Bld) [Entitic vol] 10.2 fL Normal 6.2-12.0 [facility] Comment on above: Performed By: #### L 100.0500, L500.2500 #### [facility] [address] [place], [address] Platelets (Bld) [#/Vol] 250 10*3/uL Normal 150-450 [facility] Comment on above: Performed By: #### L 100.0500, L500.2500 #### [facility] [address] [place], [address] RBC (Bld) [#/Vol] 4.06 10*6/uL Low 4.2-5.4 [facility] Comment on above: Performed By: #### L 100.0500, L500.2500 #### [facility] [address] [place], [address] RDW SD 43.2 fl Normal 35.1-43.9 [facility] Comment on above: Performed By: #### L 100.0500, L500.2500 #### [facility] [address] [place], [address] WBC (Bld) [#/Vol] 6.0 10*3/uL Normal 4.4-11.0 [facility] Comment on above: Performed By: #### L 100.0500, L500.2500 #### [facility] [address] [place], [address] Basic Metabolic Profile (BMP )on 09-08-2023 BUN/CRE 37.3 RATIO High 10-20 [facility] Comment on above: Performed By: #### L 500.2500, L100.0500 #### [facility] [address] [place], [address] CA,Total 9.4 mg/dL Normal 8.5-10.1 [facility] Comment on above: Performed By: #### L 500.2500, L100.0500 #### [facility] [address] [place], [address] Chloride [Moles/Vol] 102 mmol/L Normal 98-107 [facility] Comment on above: Performed By: #### L 500.2500, L100.0500 #### [facility] [address] [place], [address] CO2 [Moles/Vol] 31.0 mmol/L Normal 21.0-32.0 [facility] Comment on above: Performed By: #### L 500.2500, L100.0500 #### [facility] [address] [place], [address] Creatinine [Mass/Vol] 0.67 mg/dL Normal 0.55-1.02 [facility] Comment on above: Result Comment: The validity of the calculated GFR GFRAA in patients over 70 years has not been determined. Clinical correlation is essential. Performed By: #### L 500.2500, L100.0500 #### [facility] [address] [place], [address] EST GFR - AA 109 mL/min Normal >60 [facility] Comment on above: Result Comment: Afri can [place] GFR Calc Performed By: #### L 500.2500, L100.0500 #### [facility] [address] [place], [address] GAP 5 Normal 5-15 [facility] Comment on above: Performed By: #### L 500.2500, L100.0500 #### [facility] [address] [place], [address] GFR/1.73 sq M.predicted among non-blacks MDRD (S/P/Bld) [Vol rate/Area] 90 mL/min/{1.73_m2} Normal >60 [facility] Comment on above: Result Comment: Non- GFR Calc Performed By: #### L 500.2500, L100.0500 #### [facility] [address] [place], [address] Glucose [Mass/Vol] 92 mg/dL Normal 74-106 [facility] Comment on above: Performed By: #### L 500.2500, L100.0500 #### [facility] [address] [place], [address] Potassium [Moles/Vol] 3.9 mmol/L Normal 3.5-5.1 [facility] Comment on above: Performed By: #### L 500.2500, L100.0500 #### [facility] [address] [place], [address] Sodium [Moles/Vol] 138 mmol/L Normal 136-145 [facility] Comment on above: Performed By: #### L 500.2500, L100.0500 #### [facility] [address] [place], [address] Urea nitrogen [Mass/Vol] 25 mg/dL High 7-18 [facility] Comment on above: Performed By: #### L 500.2500, L100.0500 #### [facility] [address] [place], [address] CBC-Complete Blood Cnt No Di ffon 09-08-2023 Erythrocyte distribution width (RBC) [Ratio] 13.7 % Normal 11.6-14.6 [facility] Comment on above: Performed By: #### L 500.2500, L100.0500 #### [facility] [address] [place], [address] Hematocrit (Bld) [Volume fraction] 36.4 % Low 37-47 [facility] Comment on above: Performed By: #### L 500.2500, L100.0500 #### [facility] [address] [place], [address] Hemoglobin (Bld) [Mass/Vol] 11.6 g/dL Low 12.0-15.0 [facility] Comment on above: Performed By: #### L 500.2500, L100.0500 #### [facility] [address] [place], [address] MCH (RBC) [Entitic mass] 27.8 pg Normal 27.0-32.0 [facility] Comment on above: Performed By: #### L 500.2500, L100.0500 #### [facility] [address] [place], [address] MCHC (RBC) [Mass/Vol] 31.9 g/dL Low 32-36 [facility] Comment on above: Performed By: #### L 500.2500, L100.0500 #### [facility] [address] [place], [address] MCV (RBC) [Entitic vol] 87.3 fL Normal 81-99 [facility] Comment on above: Performed By: #### L 500.2500, L100.0500 #### [facility] [address] [place], [address] Platelet mean volume (Bld) [Entitic vol] 10.2 fL Normal 6.2-12.0 [facility] Comment on above: Performed By: #### L 500.2500, L100.0500 #### [facility] [address] [place], [address] Platelets (Bld) [#/Vol] 268 10*3/uL Normal 150-450 [facility] Comment on above: Performed By: #### L 500.2500, L100.0500 #### [facility] [address] [place], [address] RBC (Bld) [#/Vol] 4.17 10*6/uL Low 4.2-5.4 [facility] Comment on above: Performed By: #### L 500.2500, L100.0500 #### [facility] [address] [place], [address] RDW SD 44.0 fl High 35.1-43.9 [facility] Comment on above: Performed By: #### L 500.2500, L100.0500 #### [facility] [address] [place], [address] WBC (Bld) [#/Vol] 5.6 10*3/uL Normal 4.4-11.0 [facility] Comment on above: Performed By: #### L 500.2500, L100.0500 #### [facility] [address] [place], [address] Basic Metabolic Profile (BMP )on 09-01-2023 BUN/CRE 30.7 RATIO High 10-20 [facility] Comment on above: Order Comment: 211.1 Performed By: #### L 500.2500, L100.0500 #### [facility] [address] [place], [address] CA,Total 9.2 mg/dL Normal 8.5-10.1 [facility] Comment on above: Order Comment: 211.1 Performed By: #### L 500.2500, L100.0500 #### [facility] [address] [place], [address] Chloride [Moles/Vol] 102 mmol/L Normal 98-107 [facility] Comment on above: Order Comment: 211.1 Performed By: #### L 500.2500, L100.0500 #### [facility] [address] [place], [address] CO2 [Moles/Vol] 30.0 mmol/L Normal 21.0-32.0 [facility] Comment on above: Order Comment: 211.1 Performed By: #### L 500.2500, L100.0500 #### [facility] [address] [place], [address] Creatinine [Mass/Vol] 0.88 mg/dL Normal 0.55-1.02 [facility] Comment on above: Order Comment: 211.1 Result Comment: The validity of the calculated GFR GFRAA in patients over 70 years has not been determined. Clinical correlation is essential. Performed By: #### L 500.2500, L100.0500 #### [facility] [address] [place], [address] EST GFR - AA 80 mL/min Normal >60 [facility] Comment on above: Order Comment: 211.1 Result Comment: Afri can [place] GFR Calc Performed By: #### L 500.2500, L100.0500 #### [facility] [address] [place], [address] GAP 6 Normal 5-15 [facility] Comment on above: Order Comment: . Performed By: #### L 500.2500, L100.0500 #### [facility] [address] [place], [address] GFR/1.73 sq M.predicted among non-blacks MDRD (S/P/Bld) [Vol rate/Area] 66 mL/min/{1.73_m2} Normal >60 [facility] Comment on above: Order Comment: .1 Result Comment: Non- GFR Calc Performed By: #### L 500.2500, L100.0500 #### [facility] [address] [place], [address] Glucose [Mass/Vol] 87 mg/dL Normal 74-106 [facility] Comment on above: Order Comment: .1 Performed By: #### L 500.2500, L100.0500 #### [facility] [address] [place], [address] Potassium [Moles/Vol] 4.0 mmol/L Normal 3.5-5.1 [facility] Comment on above: Order Comment: . Performed By: #### L 500.2500, L100.0500 #### [facility] [address] [place], [address] Sodium [Moles/Vol] 138 mmol/L Normal 136-145 [facility] Comment on above: Order Comment: 211.1 Performed By: #### L 500.2500, L100.0500 #### [facility] [address] [place], [address] Urea nitrogen [Mass/Vol] 27 mg/dL High 7-18 [facility] Comment on above: Order Comment: 211.1 Performed By: #### L 500.2500, L100.0500 #### [facility] [address] [place], [address] CBC-Complete Blood Cnt No Di ffon 09-01-2023 Erythrocyte distribution width (RBC) [Ratio] 13.8 % Normal 11.6-14.6 [facility] Comment on above: Order Comment: 211.1 Performed By: #### L 500.2500, L100.0500 #### [facility] [address] [place], [address] Hematocrit (Bld) [Volume fraction] 36.1 % Low 37-47 [facility] Comment on above: Order Comment: 211.1 Performed By: #### L 500.2500, L100.0500 #### [facility] [address] [place], [address] Hemoglobin (Bld) [Mass/Vol] 11.1 g/dL Low 12.0-15.0 [facility] Comment on above: Order Comment: 211.1 Performed By: #### L 500.2500, L100.0500 #### [facility] [address] [place], [address] MCH (RBC) [Entitic mass] 26.9 pg Low 27.0-32.0 [facility] Comment on above: Order Comment: 211.1 Performed By: #### L 500.2500, L100.0500 #### [facility] [address] [place], [address] MCHC (RBC) [Mass/Vol] 30.7 g/dL Low 32-36 [facility] Comment on above: Order Comment: 211.1 Performed By: #### L 500.2500, L100.0500 #### [facility] [address] [place], [address] MCV (RBC) [Entitic vol] 87.4 fL Normal 81-99 [facility] Comment on above: Order Comment: 211.1 Performed By: #### L 500.2500, L100.0500 #### [facility] [address] [place], [address] Platelet mean volume (Bld) [Entitic vol] 10.4 fL Normal 6.2-12.0 [facility] Comment on above: Order Comment: 211.1 Performed By: #### L 500.2500, L100.0500 #### [facility] [address] [place], [address] Platelets (Bld) [#/Vol] 288 10*3/uL Normal 150-450 [facility] Comment on above: Order Comment: 211.1 Performed By: #### L 500.2500, L100.0500 #### [facility] [address] [place], [address] RBC (Bld) [#/Vol] 4.13 10*6/uL Low 4.2-5.4 [facility] Comment on above: Order Comment: 211.1 Performed By: #### L 500.2500, L100.0500 #### [facility] [address] [place], [address] RDW SD 44.0 fl High 35.1-43.9 [facility] Comment on above: Order Comment: 211.1 Performed By: #### L 500.2500, L100.0500 #### [facility] [address] [place], [address] WBC (Bld) [#/Vol] 7.4 10*3/uL Normal 4.4-11.0 [facility] Comment on above: Order Comment: 211.1 Performed By: #### L 500.2500, L100.0500 #### [facility] [address] [place], [address] Basic Metabolic Profile (BMP )on 08-25-2023 BUN/CRE 31.4 RATIO High 10-20 [facility] Comment on above: Performed By: #### L 100.0100, L500.2500 #### [facility] [address] [place], [address] CA,Total 9.1 mg/dL Normal 8.5-10.1 [facility] Comment on above: Performed By: #### L 100.0100, L500.2500 #### [facility] [address] [place], [address] Chloride [Moles/Vol] 102 mmol/L Normal 98-107 [facility] Comment on above: Performed By: #### L 100.0100, L500.2500 #### [facility] [address] [place], [address] CO2 [Moles/Vol] 32.0 mmol/L Normal 21.0-32.0 [facility] Comment on above: Performed By: #### L 100.0100, L500.2500 #### [facility] [address] [place], [address] Creatinine [Mass/Vol] 0.76 mg/dL Normal 0.55-1.02 [facility] Comment on above: Result Comment: The validity of the calculated GFR GFRAA in patients over 70 years has not been determined. Clinical correlation is essential. Performed By: #### L 100.0100, L500.2500 #### [facility] [address] [place], [address] EST GFR - AA 94 mL/min Normal >60 [facility] Comment on above: Result Comment: Afri can [place] GFR Calc Performed By: #### L 100.0100, L500.2500 #### [facility] [address] [place], [address] GAP 5 Normal 5-15 [facility] Comment on above: Performed By: #### L 100.0100, L500.2500 #### [facility] [address] [place], [address] GFR/1.73 sq M.predicted among non-blacks MDRD (S/P/Bld) [Vol rate/Area] 78 mL/min/{1.73_m2} Normal >60 [facility] Comment on above: Result Comment: Non- GFR Calc Performed By: #### L 100.0100, L500.2500 #### [facility] [address] [place], [address] Glucose [Mass/Vol] 95 mg/dL Normal 74-106 [facility] Comment on above: Performed By: #### L 100.0100, L500.2500 #### [facility] [address] [place], [address] Potassium [Moles/Vol] 3.3 mmol/L Low 3.5-5.1 [facility] Comment on above: Performed By: #### L 100.0100, L500.2500 #### [facility] [address] [place], [address] Sodium [Moles/Vol] 139 mmol/L Normal 136-145 [facility] Comment on above: Performed By: #### L 100.0100, L500.2500 #### [facility] [address] [place], [address] Urea nitrogen [Mass/Vol] 24 mg/dL High 7-18 [facility] Comment on above: Performed By: #### L 100.0100, L500.2500 #### [facility] [address] [place], [address] CBC W/Diff, Automatedon 07-0 -2023 Absolute Lymph 1.64 X10 3/uL Normal 0.83-4.51 [facility] Comment on above: Performed By: #### L 100.0100, L500.2500 #### [facility] [address] [place], [address] Absolute Neut 5.6 X10 3/uL Normal 2.0-7.7 [facility] Comment on above: Performed By: #### L 100.0100, L500.2500 #### [facility] [address] [place], [address] Basophils/100 WBC (Bld) 0.3 % Normal 0-1 [facility] Comment on above: Performed By: #### L 100.0100, L500.2500 #### [facility] [address] [place], [address] Eosinophils/100 WBC (Bld) 6.4 % High 0-5 [facility] Comment on above: Performed By: #### L 100.0100, L500.2500 #### [facility] [address] [place], [address] Erythrocyte distribution width (RBC) [Ratio] 13.7 % Normal 11.6-14.6 [facility] Comment on above: Performed By: #### L 100.0100, L500.2500 #### [facility] [address] [place], [address] Hematocrit (Bld) [Volume fraction] 36.5 % Low 37-47 [facility] Comment on above: Performed By: #### L 100.0100, L500.2500 #### [facility] [address] [place], [address] Hemoglobin (Bld) [Mass/Vol] 11.7 g/dL Low 12.0-15.0 [facility] Comment on above: Performed By: #### L 100.0100, L500.2500 #### [facility] [address] [place], [address] IG% 0.600 Normal 0.0-0.9 [facility] Comment on above: Result Comment: IG% - Immature Granulocytes (promyelocytes, myelocytes and metamyelocytes) > 1% indicates that a LEFT SHIFT is Present. Performed By: #### L 100.0100, L500.2500 #### [facility] [address] [place], [address] Lymphocytes/100 WBC (Bld) 19.1 % Normal 19-41 [facility] Comment on above: Performed By: #### L 100.0100, L500.2500 #### [facility] [address] [place], [address] MCH (RBC) [Entitic mass] 27.7 pg Normal 27.0-32.0 [facility] Comment on above: Performed By: #### L 100.0100, L500.2500 #### [facility] [address] [place], [address] MCHC (RBC) [Mass/Vol] 32.1 g/dL Normal 32-36 [facility] Comment on above: Performed By: #### L 100.0100, L500.2500 #### [facility] [address] [place], [address] MCV (RBC) [Entitic vol] 86.3 fL Normal 81-99 [facility] Comment on above: Performed By: #### L 100.0100, L500.2500 #### [facility] [address] [place], [address] Monocytes/100 WBC (Bld) 8.7 % Normal 0-10 [facility] Comment on above: Performed By: #### L 100.0100, L500.2500 #### [facility] [address] [place], [address] Neutrophils/100 WBC (Bld) 64.9 % Normal 47-70 [facility] Comment on above: Performed By: #### L 100.0100, L500.2500 #### [facility] [address] [place], [address] Nucleated RBC (Bld) [#/Vol] 0 10*3/uL Normal 0-5 [facility] Comment on above: Performed By: #### L 100.0100, L500.2500 #### [facility] [address] [place], [address] Platelet mean volume (Bld) [Entitic vol] 10.4 fL Normal 6.2-12.0 [facility] Comment on above: Performed By: #### L 100.0100, L500.2500 #### [facility] [address] [place], [address] Platelets (Bld) [#/Vol] 277 10*3/uL Normal 150-450 [facility] Comment on above: Performed By: #### L 100.0100, L500.2500 #### [facility] [address] [place], [address] RBC (Bld) [#/Vol] 4.23 10*6/uL Normal 4.2-5.4 [facility] Comment on above: Performed By: #### L 100.0100, L500.2500 #### [facility] [address] [place], [address] RDW SD 43.5 fl Normal 35.1-43.9 [facility] Comment on above: Performed By: #### L 100.0100, L500.2500 #### [facility] [address] [place], [address] WBC (Bld) [#/Vol] 8.6 10*3/uL Normal 4.4-11.0 [facility] Comment on above: Performed By: #### L 100.0100, L500.2500 #### [facility] [address] [place], [place], [address] .Auto Diffon 08-21-2023 Basophil, Absolute 0.0 10 3/mcL Normal 0.0-0.2 [facility] ([place]) Comment on above: Performed By: #### C ASHLEY MISTRY, ADIFF #### [place] [address] [address] Basophils/100 WBC (Bld) 0.1 % Normal 0.0-2.5 A [facility] ([place]) Comment on above: Performed By: #### ASHLEY KNOTT, ADIFF #### [address] [address] Eosinophil, Absolute 0.1 10 3/mcL Normal 0.0-0.4 [facility] ([place] Comment on above: Performed By: #### ASHLEY KNOTT, ADIFF #### [address] [address] Eosinophils/100 WBC (Bld) 0.9 % Normal 0.0-7.0 [facility] ([place] Comment on above: Performed By: #### ASHLEY KNOTT, ADIFF #### [place] [address] [address] Lymphocyte, Absolute 1.8 10 3/mcL Normal 0.8-3.9 [facility] ([place]) Comment on above: Performed By: #### ASHLEY KNOTT, ADIFF #### [address] [address] Lymphocytes/100 WBC (Bld) 18.6 % Normal 10.0-50.0 [facility] ([place] Comment on above: Performed By: #### Rowena BCASHLEY, ADIFF #### [address] [address] Monocyte, Absolute 0.6 10 3/mcL Normal 0.2-1.0 [facility] [place] Comment on above: Performed By: #### C BC ANEU, ADIFF #### [address] [address] Monocytes/100 WBC (Bld) 6.3 % Normal 1.7-13.0 [facility] ([place] Comment on above: Performed By: #### C BC, ANEU, ADIFF #### [address] [address] Neutrophils/100 WBC (Bld) 74.1 % Normal 37.0-80.0 [facility] ([place] Comment on above: Performed By: #### C BC ANEU, ADIFF #### [address] [address] .NEUABSon 08-21-2023 Neutrophil, Absolute 7.2 10 3/mcL High 2.9-6.2 [facility] [place] Comment on above: Performed By: #### C BCASHLEY, ADIFF #### [address] [address] CBCon 08-21-2023 Erythrocyte distribution width (RBC) [Ratio] 14.3 % Normal 11.5-14.5 [facility] ([place] Comment on above: Performed By: #### C BC ANEU, ADIFF #### [address] [address] Hematocrit (Bld) [Volume fraction] 35.7 % Low 37.0-47.0 [facility] ([place] Comment on above: Performed By: #### C BC ANEU, ADIFF #### [address] [address] Hgb 12.0 G/dL Normal 12.0-16.0 [facility] [place] Comment on above: Performed By: #### C BC ANEU, ADIFF #### [address] [address] MCH (RBC) [Entitic mass] 28.1 pg Normal 27.0-31.2 [facility] [place] Comment on above: Performed By: #### C ASHLEY MISTRY ADIFF #### [place] [address] [address] MCHC 33.6 G/dL Normal 33.0-37.0 [facility] ([place] Comment on above: Performed By: #### C ASHLEY MISTRY ADIFF #### [place] [address] [address] MCV (RBC) [Entitic vol] 83.7 fL Normal 80.0-94.0 A [facility] ([place] Comment on above: Performed By: #### C ASHLEY MISTRY ADIFF #### [place] [address] [address] Platelet 228 10 3/mcL Normal 130-400 [facility] ([place] Comment on above: Performed By: #### ASHLEY KNOTT ADIFF #### [place] [address] [address] Platelet mean volume (Bld) [Entitic vol] 7.9 fL Normal 7.4-10.4 [facility] ([place] Comment on above: Performed By: #### C ASHLEY MISTRY, ADIFF #### [place] [address] [address] RBC 4.26 10 6/mcL Normal 4.20-5.40 [facility] [place] Comment on above: Performed By: #### C ASHLEY MISTRY, ADIFF #### [place] [address] [address] WBC 9.7 10 3/mcL Normal 4.6-10.8 [facility] [place] Comment on above: Performed By: #### C ASHLEY MISTRY ADIFF #### [place] [address] [address] LABORATORYOrdered By: SYSTEM SYSTEM on 08-21-2023 Basophil, Absolute 0.0 103/mcL Normal 0.0 - 0.2 10^3/mcL AO Workflow SS Basophils/100 WBC (Bld) 0.1 % Normal 0.0 - 2.5 % AO Workflow SS Eosinophil, Absolute 0.1 103/mcL Normal 0.0 - 0 .4 10^3/mcL AO Workflow SS Eosinophils/100 WBC (Bld) 0.9 % Normal 0.0 - 7.0 % AO Workflow SS Erythrocyte distribution width (RBC) [Ratio] 14.3 % Normal 11.5 - 14.5 % AO Workflow SS Hematocrit (Bld) [Volume fraction] 35.7 % Low 37.0 - 47.0 % AO Workflow SS Hemoglobin (Bld) [Mass/Vol] 12.0 G/dL Normal 12.0 - 16.0 G/dL AO Workflow SS Lymphocyte, Absolute 1.8 103/mcL Normal 0.8 - 3 .9 10^3/mcL AO Workflow SS Lymphocytes/100 WBC (Bld) 18.6 % Normal 10.0 - 50.0 % AO Workflow SS MCH (RBC) [Entitic mass] 28.1 pg Normal 27.0 - 31.2 pg AO Workflow SS MCHC 33.6 G/dL Normal 33.0 - 37.0 G/dL AO Workflow SS MCV (RBC) [Entitic vol] 83.7 fL Normal 80.0 - 94.0 fL AO Workflow SS Monocyte, Absolute 0.6 103/mcL Normal 0.2 - 1.0 10^3/mcL AO Workflow SS Monocytes/100 WBC (Bld) 6.3 % Normal 1.7 - 13.0 % AO Workflow SS Neutrophil, Absolute 7.2 103/mcL High 2.9 - 6 .2 10^3/mcL AO Workflow SS Neutrophils/100 WBC (Bld) 74.1 % Normal 37.0 - 80.0 % AO Workflow SS Platelet mean volume (Bld) [Entitic vol] 7.9 fL Normal 7.4 - 10.4 fL AO Workflow SS Platelets (Bld) [#/Vol] 228 103/mcL Normal 130 - 400 10^3/mcL AO Workflow SS RBC (Bld) [#/Vol] 4.26 106/mcL Normal 4.20 - 5.4 0 10^6/mcL AO Workflow SS WBC (Bld) [#/Vol] 9.7 103/mcL Normal 4.6 - 10.8 10^3/mcL AO Workflow SS .Auto Diffon 08-20-2023 Basophil, Absolute 0.0 10 3/mcL Normal 0.0-0.2 [facility] [place] Comment on above: Performed By: #### A DIFF, ANEU, GFR, BMP, CBC #### [address] [address] Basophils/100 WBC (Bld) 0.0 % Normal 0.0-2.5 A [facility] [place] Comment on above: Performed By: #### A DIFF, ANEU, GFR, BMP, CBC #### [address] [address] Eosinophil, Absolute 0.0 10 3/mcL Normal 0.0-0.4 [facility] ([place] Comment on above: Performed By: #### A DIFF, ANEU, GFR, BMP, CBC #### [address] [address] Eosinophils/100 WBC (Bld) 0.0 % Normal 0.0-7.0 [facility] ([place] Comment on above: Performed By: #### A DIFF, ANEU, GFR, BMP, CBC #### [address] [address] Lymphocyte, Absolute 0.7 10 3/mcL Low 0.8-3.9 [facility] ([place] Comment on above: Performed By: #### A DIFF, ANEU, GFR, BMP, CBC #### [address] [address] Lymphocytes/100 WBC (Bld) 8.5 % Low 10.0-50.0 [facility] ([place] Comment on above: Performed By: #### A DIFF, ANEU, GFR, BMP, CBC #### [address] [address] Monocyte, Absolute 0.1 10 3/mcL Low 0.2-1.0 [facility] [place] Comment on above: Performed By: #### A DIFF, ANEU, GFR, BMP, CBC #### [address] [address] Monocytes/100 WBC (Bld) 1.8 % Normal 1.7-13.0 A [facility] [place] Comment on above: Performed By: #### A DIFF, ANEU, GFR, BMP, CBC #### [address] [address] Neutrophils/100 WBC (Bld) 89.7 % High 37.0-80.0 [facility] ([place] Comment on above: Performed By: #### A DIFF, ANEU, GFR, BMP, CBC #### [address] [address] .GFRon 08-20-2023 GFR 96 ml/min/1.73sqm Normal [facility] ([place] Comment on above: Result Comment: GFR Population mean for , Non- Americans Ages 20-29 = 116 mL/min/1.73 sq.m. Ages 30-39 = 107 mL/min/1.73 sq.m. Ages 40-49 = 99 mL/min/1.73 sq.m. Ages 50-59 = 93 mL/min/1.73 sq.m. Ages 60-69 = 85 mL/min/1.73 sq.m. Ages 70+ = 75 mL/min/1.73 sq.m. Chronic Kidney Disease: Less than 60 mL/min/1.73 square meters End Stage Renal Disease: Less than 15 mL/min/1.73 square meters Performed By: #### B MP, ADIFF, ANEU, GFR, CBC #### [address] [address] GFR Non- 80 ml/min/1.73sqm Normal [facility] ([place] Comment on above: Result Comment: GFR Population mean for , Non- Americans Ages 20-29 = 116 mL/min/1.73 sq.m. Ages 30-39 = 107 mL/min/1.73 sq.m. Ages 40-49 = 99 mL/min/1.73 sq.m. Ages 50-59 = 93 mL/min/1.73 sq.m. Ages 60-69 = 85 mL/min/1.73 sq.m. Ages 70+ = 75 mL/min/1.73 sq.m. Chronic Kidney Disease: Less than 60 mL/min/1.73 square meters End Stage Renal Disease: Less than 15 mL/min/1.73 square meters Performed By: #### B MP, ADIFF, ANEU, GFR, CBC #### [address] [address] .NEUABSon 08-20-2023 Neutrophil, Absolute 7.4 10 3/mcL High 2.9-6.2 [facility] [place] Comment on above: Performed By: #### B MP, ADIFF, ANEU, GFR, CBC #### [address] [address] BMPon 08-20-2023 BUN/Creatinine Ratio 34 ratio High 7-27 [facility] ([place] Comment on above: Performed By: #### B MP, ADIFF, ANEU, GFR, CBC #### [address] [address] Calcium [Mass/Vol] 8.6 mg/dL Normal 8.4-10.2 [facility] ([place] Comment on above: Performed By: #### B MP, ADIFF, ANEU, GFR, CBC #### [address] [address] Chloride [Moles/Vol] 103 mmol/L Normal 98-107 [facility] ([place] Comment on above: Performed By: #### B MP, ADIFF, ANEU, GFR, CBC #### [address] [address] CO2 [Moles/Vol] 31 mmol/L Normal 23-31 [facility] ([place] Comment on above: Performed By: #### B MP, ADIFF, ANEU, GFR, CBC #### [address] [address] Creatinine [Mass/Vol] 0.71 mg/dL Normal 0.55-1.02 [facility] ([place]) Comment on above: Performed By: #### B MP, ADIFF, ANEU, GFR, CBC #### [address] [address] Electrolyte Balance 6.0 mEq/L Normal 4.0-15.0 [facility] [place] Comment on above: Performed By: #### B MP, ADIFF, ANEU, GFR, CBC #### [address] [address] Glucose [Mass/Vol] 129 mg/dL High 83-110 [facility] ([place] Comment on above: Performed By: #### B MP, ADIFF, ANEU, GFR, CBC #### [address] [address] Potassium [Moles/Vol] 4.1 mmol/L Normal 3.5-5.1 [facility] ([place] Comment on above: Performed By: #### B MP, ADIFF, ANEU, GFR, CBC #### [place] [id number] Sodium [Moles/Vol] 140 mmol/L Normal 136-145 [facility]) Comment on above: Performed By: #### B MP, ADIFF, ANEU, GFR, CBC #### [place] [address] Urea nitrogen [Mass/Vol] 24 mg/dL High 7-18 [facility] ([place] Comment on above: Performed By: #### B MP, ADIFF, ANEU, GFR, CBC #### [address] [address] CBCon 08-20-2023 Erythrocyte distribution width (RBC) [Ratio] 13.9 % Normal 11.5-14.5 [facility] ([place] Comment on above: Performed By: #### A DIFF, ANEU, GFR, BMP, CBC #### [address] [address] Hematocrit (Bld) [Volume fraction] 34.0 % Low 37.0-47.0 [facility] ([place] Comment on above: Performed By: #### A DIFF, ANEU, GFR, BMP, CBC #### [address] [address] Hgb 11.6 G/dL Low 12.0-16.0 [facility] ([place] Comment on above: Performed By: #### A DIFF, ANEU, GFR, BMP, CBC #### [address] [address] MCH (RBC) [Entitic mass] 28.4 pg Normal 27.0-31.2 [facility] ([place] Comment on above: Performed By: #### A DIFF, ANEU, GFR, BMP, CBC #### [address] [address] MCHC 34.1 G/dL Normal 33.0-37.0 [facility] ([place] Comment on above: Performed By: #### A DIFF, ANEU, GFR, BMP, CBC #### [address] [address] MCV (RBC) [Entitic vol] 83.5 fL Normal 80.0-94.0 A [facility] ([place] Comment on above: Performed By: #### A DIFF, ANEU, GFR, BMP, CBC #### [address] [address] Platelet 222 10 3/mcL Normal 130-400 [facility] ([place] Comment on above: Performed By: #### A DIFF, ANEU, GFR, BMP, CBC #### [address] [address] Platelet mean volume (Bld) [Entitic vol] 8.2 fL Normal 7.4-10.4 [facility] ([place] Comment on above: Performed By: #### A DIFF, ANEU, GFR, BMP, CBC #### [address] [address] RBC 4.08 10 6/mcL Low 4.20-5.40 [facility] ([place] Comment on above: Performed By: #### A DIFF, ANEU, GFR, BMP, CBC #### [address] [address] WBC 8.3 10 3/mcL Normal 4.6-10.8 [facility] ([place] Comment on above: Performed By: #### A DIFF, ANEU, GFR, BMP, CBC #### [address] [place] [address] LABORATORYOrdered By: SYSTEM SYSTEM on 08-20-2023 Basophil, Absolute 0.0 103/mcL Normal 0.0 - 0.2 10^3/mcL AO Workflow SS Basophils/100 WBC (Bld) 0.0 % Normal 0.0 - 2.5 % AO Workflow SS Calcium [Mass/Vol] 8.6 mg/dL Normal 8.4 - 10. 2 mg/dL AO ADM SS Chloride [Moles/Vol] 103 mmol/L Normal 98 - 10 7 mmol/L AO ADM SS CO2 [Moles/Vol] 31 mmol/L Normal 23 - 31 mmol/L AO ADM SS Creatinine [Mass/Vol] 0.71 mg/dL Normal 0.55 - 1.02 mg/dL AO ADM SS Electrolyte Balance 6.0 mEq/L Normal 4.0 - 15 .0 mEq/L AO ADM SS Eosinophil, Absolute 0.0 103/mcL Normal 0.0 - 0 .4 10^3/mcL AO Workflow SS Eosinophils/100 WBC (Bld) 0.0 % Normal 0.0 - 7.0 % AO Workflow SS Erythrocyte distribution width (RBC) [Ratio] 13.9 % Normal 11.5 - 14.5 % AO Workflow SS GFR/1.73 sq M.predicted among blacks MDRD (S/P/Bld) [Vol rate/Area] 96 ml/min/1.73sqm Invalid Interpretation Code AO Chemistry S Comment on above: Interpretive Data: GFR Population mean for , Non- Americans Ages 20-29 = 116 mL/min/1.73 sq.m. Ages 30-39 = 107 mL/min/1.73 sq.m. Ages 40-49 = 99 mL/min/1.73 sq.m. Ages 50-59 = 93 mL/min/1.73 sq.m. Ages 60-69 = 85 mL/min/1.73 sq.m. Ages 70+ = 75 mL/min/1.73 sq.m. Chronic Kidney Disease: Less than 60 mL/min/1.73 square meters End Stage Renal Disease: Less than 15 mL/min/1.73 square meters GFR/1.73 sq M.predicted among non-blacks MDRD (S/P/Bld) [Vol rate/Area] 80 ml/min/1.73sqm Invalid Interpretation Code AO Chemistry S Comment on above: Interpretive Data: GFR Population mean for , Non- Americans Ages 20-29 = 116 mL/min/1.73 sq.m. Ages 30-39 = 107 mL/min/1.73 sq.m. Ages 40-49 = 99 mL/min/1.73 sq.m. Ages 50-59 = 93 mL/min/1.73 sq.m. Ages 60-69 = 85 mL/min/1.73 sq.m. Ages 70+ = 75 mL/min/1.73 sq.m. Chronic Kidney Disease: Less than 60 mL/min/1.73 square meters End Stage Renal Disease: Less than 15 mL/min/1.73 square meters Glucose [Mass/Vol] 129 mg/dL High 83 - 110 mg/dL AO ADM SS Hematocrit (Bld) [Volume fraction] 34.0 % Low 37.0 - 47.0 % AO Workflow SS Hemoglobin (Bld) [Mass/Vol] 11.6 G/dL Low 12.0 - 16.0 G/dL AO Workflow SS Lymphocyte, Absolute 0.7 103/mcL Low 0.8 - 3 .9 10^3/mcL AO Workflow SS Lymphocytes/100 WBC (Bld) 8.5 % Low 10.0 - 50.0 % AO Workflow SS MCH (RBC) [Entitic mass] 28.4 pg Normal 27.0 - 31.2 pg AO Workflow SS MCHC 34.1 G/dL Normal 33.0 - 37.0 G/dL AO Workflow SS MCV (RBC) [Entitic vol] 83.5 fL Normal 80.0 - 94.0 fL AO Workflow SS Monocyte, Absolute 0.1 103/mcL Low 0.2 - 1.0 10^3/mcL AO Workflow SS Monocytes/100 WBC (Bld) 1.8 % Normal 1.7 - 13.0 % AO Workflow SS Neutrophil, Absolute 7.4 103/mcL High 2.9 - 6 .2 10^3/mcL AO Workflow SS Neutrophils/100 WBC (Bld) 89.7 % High 37.0 - 80.0 % AO Workflow SS Platelet mean volume (Bld) [Entitic vol] 8.2 fL Normal 7.4 - 10.4 fL AO Workflow SS Platelets (Bld) [#/Vol] 222 103/mcL Normal 130 - 400 10^3/mcL AO Workflow SS Potassium [Moles/Vol] 4.1 mmol/L Normal 3.5 - 5.1 mmol/L AO ADM SS RBC (Bld) [#/Vol] 4.08 106/mcL Low 4.20 - 5.4 0 10^6/mcL AO Workflow SS Sodium [Moles/Vol] 140 mmol/L Normal 136 - 145 mmol/L AO ADM SS Urea nitrogen [Mass/Vol] 24 mg/dL High 7 - 18 mg/dL AO ADM SS Urea nitrogen/Creatinine [Mass ratio] 34 ratio High 7 - 27 ratio AO ADM SS WBC (Bld) [#/Vol] 8.3 103/mcL Normal 4.6 - 10.8 10^3/mcL AO Workflow SS XR FLUORO 1-2 HRS TECH TIMEo n 08-19-2023 XR FLUORO 1-2 HRS TECH TIME ORIGINAL Images acquired, not reported on this accession number. Normal [facility] [place] XR KNEE 1 OR 2 VIEWS LEFTon 08-19-2023 XR KNEE 1 OR 2 VIEWS LEFT ORIGINAL EXAMINATION: TWO XRAY VIEWS OF THE LEFT KNEE08/19/2023 4:00 pm XR left knee portable AP and cross-table lateral two views COMPARISON: None HISTORY: ORDERING SYSTEM PROVIDED HISTORY: Reason for Exam: Postop left knee arthroplasty, postop evaluation FINDINGS: There is limited evaluation on the lateral view due to the presence of metallic brace around the knee. Any prosthesis is intact with satisfactory alignment. No abnormal periprosthetic lucency or fracture is seen on these images.. IMPRESSION: Uncomplicated appearance of left knee prosthesis. Interpreted by: Rui Adams MD Preliminary Report By: Rui Adams MD Electronically signed By Rui Adams MD Dictated Date: 08/19/2023 4:16:44 PM Prelim Date: 08/19/2023 4:18:08 PM Sign Date: 08/19/2023 4:18:08 PM Ordering Provider: MERCEDES LOCK Normal [facility] ([place] .Auto Diffon 08-14-2023 Basophil, Absolute 0.0 10 3/mcL Normal 0.0-0.2 [facility]) Comment on above: Performed By: #### B MP, ADIFF, ANEU, GFR, CBC #### [place] [place] [address] [place], [place] [address] Basophils/100 WBC (Bld) 0.3 % Normal 0.0-2.5 A [facility] ([place] Comment on above: Performed By: #### B MP, ADIFF, ANEU, GFR, CBC #### [address] [address] Eosinophil, Absolute 0.3 10 3/mcL Normal 0.0-0.4 [facility] ([place] Comment on above: Performed By: #### B MP, ADIFF, ANEU, GFR, CBC #### [address] [address] Eosinophils/100 WBC (Bld) 3.8 % Normal 0.0-7.0 [facility] ([place] Comment on above: Performed By: #### B MP, ADIFF, ANEU, GFR, CBC #### [address] [address] Lymphocyte, Absolute 1.3 10 3/mcL Normal 0.8-3.9 [facility] ([place] Comment on above: Performed By: #### B MP, ADIFF, ANEU, GFR, CBC #### [address] [address] Lymphocytes/100 WBC (Bld) 15.9 % Normal 10.0-50.0 [facility] ([place] Comment on above: Performed By: #### B MP, ADIFF, ANEU, GFR, CBC #### [address] [address] Monocyte, Absolute 0.5 10 3/mcL Normal 0.2-1.0 [facility] ([place] Comment on above: Performed By: #### B MP, ADIFF, ANEU, GFR, CBC #### [address] [address] Monocytes/100 WBC (Bld) 5.8 % Normal 1.7-13.0 A [facility] ([place] Comment on above: Performed By: #### B MP, ADIFF, ANEU, GFR, CBC #### [address] [address] Neutrophils/100 WBC (Bld) 74.2 % Normal 37.0-80.0 [facility] ([place] Comment on above: Performed By: #### B PHIL, DISHA, ANEU, GFR, CBC #### [address] [address] .GFRon 08-14-2023 GFR 91 ml/min/1.73sqm Normal [facility] ([place] Comment on above: Result Comment: GFR Population mean for , Non- Americans Ages 20-29 = 116 mL/min/1.73 sq.m. Ages 30-39 = 107 mL/min/1.73 sq.m. Ages 40-49 = 99 mL/min/1.73 sq.m. Ages 50-59 = 93 mL/min/1.73 sq.m. Ages 60-69 = 85 mL/min/1.73 sq.m. Ages 70+ = 75 mL/min/1.73 sq.m. Chronic Kidney Disease: Less than 60 mL/min/1.73 square meters End Stage Renal Disease: Less than 15 mL/min/1.73 square meters Performed By: #### B MP, ADNEMO, ANEU, GFR, CBC #### [address] [address] GFR Non- 75 ml/min/1.73sqm Normal [facility] ([place] Comment on above: Result Comment: GFR Population mean for , Non- Americans Ages 20-29 = 116 mL/min/1.73 sq.m. Ages 30-39 = 107 mL/min/1.73 sq.m. Ages 40-49 = 99 mL/min/1.73 sq.m. Ages 50-59 = 93 mL/min/1.73 sq.m. Ages 60-69 = 85 mL/min/1.73 sq.m. Ages 70+ = 75 mL/min/1.73 sq.m. Chronic Kidney Disease: Less than 60 mL/min/1.73 square meters End Stage Renal Disease: Less than 15 mL/min/1.73 square meters Performed By: #### B MP, ADIFF, ANEU, GFR, CBC #### [address] [address] .NEUABSon 08-14-2023 Neutrophil, Absolute 6.1 10 3/mcL Normal 2.9-6.2 [facility] [place] Comment on above: Performed By: #### B MP, ADIFF, ANEU, GFR, CBC #### [address] [address] BMPon 08-14-2023 BUN/Creatinine Ratio 37 ratio High 7-27 [facility] [place] Comment on above: Performed By: #### B MP, ADIFF, ANEU, GFR, CBC #### [address] [address] Calcium [Mass/Vol] 8.8 mg/dL Normal 8.4-10.2 [facility] ([place] Comment on above: Performed By: #### B MP, ADIFF, ANEU, GFR, CBC #### [address] [address] Chloride [Moles/Vol] 101 mmol/L Normal 98-107 [facility] [place] Comment on above: Performed By: #### B MP, ADIFF, ANEU, GFR, CBC #### [address] [address] CO2 [Moles/Vol] 34 mmol/L High 23-31 [facility] ([place] Comment on above: Performed By: #### B MP, ADIFF, ANEU, GFR, CBC #### [address] [address] Creatinine [Mass/Vol] 0.75 mg/dL Normal 0.55-1.02 [facility] ([place] Comment on above: Performed By: #### B MP, ADIFF, ANEU, GFR, CBC #### [address] [address] Electrolyte Balance 7.0 mEq/L Normal 4.0-15.0 [facility] [place] Comment on above: Performed By: #### B MP, ADIFF, ANEU, GFR, CBC #### [address] [address] Glucose [Mass/Vol] 118 mg/dL High 83-110 [facility] ([place] Comment on above: Performed By: #### B MP, ADIFF, ANEU, GFR, CBC #### [address] [address] Potassium [Moles/Vol] 3.6 mmol/L Normal 3.5-5.1 [facility] ([place]) Comment on above: Performed By: #### B MP, ADIFF, ANEU, GFR, CBC #### [address] [address] Sodium [Moles/Vol] 142 mmol/L Normal 136-145 [facility] ([place]) Comment on above: Performed By: #### B MP, ADIFF, ANEU, GFR, CBC #### [address] [address] Urea nitrogen [Mass/Vol] 28 mg/dL High 7-18 [facility] ([place]) Comment on above: Performed By: #### B MP, ADIFF, ANEU, GFR, CBC #### [address] [address] CBCon 08-14-2023 Erythrocyte distribution width (RBC) [Ratio] 14.1 % Normal 11.5-14.5 [facility] ([place]) Comment on above: Order Comment: Pre-A dmission Testing Performed By: #### B MP, ADIFF, ANEU, GFR, CBC #### [address] [address] Hematocrit (Bld) [Volume fraction] 37.1 % Normal 37.0-47.0 [facility] ([place] Comment on above: Order Comment: Pre-A dmission Testing Performed By: #### B MP, ADIFF, ANEU, GFR, CBC #### [address] [address] Hgb 12.6 G/dL Normal 12.0-16.0 [facility] ([place] Comment on above: Order Comment: Pre-A dmission Testing Performed By: #### B MP, ADIFF, ANEU, GFR, CBC #### [address] [address] MCH (RBC) [Entitic mass] 28.4 pg Normal 27.0-31.2 [facility] ([place]) Comment on above: Order Comment: Pre-A dmission Testing Performed By: #### B MP, ADIFF, ANEU, GFR, CBC #### [address] [address] MCHC 33.9 G/dL Normal 33.0-37.0 [facility] ([place] Comment on above: Order Comment: Pre-A dmission Testing Performed By: #### B MP, ADIFF, ANEU, GFR, CBC #### [address] [address] MCV (RBC) [Entitic vol] 83.7 fL Normal 80.0-94.0 A [facility] ([place]) Comment on above: Order Comment: Pre-A dmission Testing Performed By: #### B MP, ADIFF, ANEU, GFR, CBC #### [address] [address] Platelet 261 10 3/mcL Normal 130-400 [facility] ([place] Comment on above: Order Comment: Pre-A dmission Testing Performed By: #### B MP, ADIFF, ANEU, GFR, CBC #### [address] [address] Platelet mean volume (Bld) [Entitic vol] 8.2 fL Normal 7.4-10.4 [facility] ([place] Comment on above: Order Comment: Pre-A dmission Testing Performed By: #### B MP, ADIFF, ANEU, GFR, CBC #### [address] [address] RBC 4.43 10 6/mcL Normal 4.20-5.40 [facility] ([place]) Comment on above: Order Comment: Pre-A dmission Testing Performed By: #### B MP, ADIFF, ANEU, GFR, CBC #### [address] [address] WBC 8.2 10 3/mcL Normal 4.6-10.8 [facility] ([place]) Comment on above: Order Comment: Pre-A dmission Testing Performed By: #### B MP, DISHA, ANEU, GFR, CBC #### [address] [place] [address] [place], [place] [address] Blood type and Indirect anti body screen panel (Bld)on 06-23-2023 ABO group Nom (Bld) A Normal [facility] Comment on above: Performed By: #### 3 4532-2 #### ELO Larios ([id number]) [facility] ([facility]) [address] [place] [address] Blood group antibody screen Ql Negative [facility] Comment on above: Performed By: #### 3 4532-2 #### ELO Larios (56861) [facility] ([facility]) [address] [place] [address] D Ag Ql (Bld) Positive [facility] Comment on above: Performed By: #### 3 4532-2 #### EOL Larios (65769) [facility] ([facility]) [address] [place] [address] CBC panel Auto (Bld)on 06-22 Erythrocyte distribution width (RBC) [Ratio] 13.6 % Normal 11.5-14.5 [facility] Comment on above: Performed By: #### 5 8410-2 #### ELO Larios (05044) [facility] ([facility]) [address] [place] [address] Hematocrit (Bld) [Volume fraction] 37.5 % Normal 36.0-46.0 [facility] Comment on above: Performed By: #### 5 8410-2 #### ELO Larios (06329) [facility] ([facility]) [address] [place] [address] Hemoglobin (Bld) [Mass/Vol] 12.0 g/dL Normal 12.0-16.0 [facility] Comment on above: Performed By: #### 5 8410-2 #### ELO Larios (82027) [facility] ([facility]) [address] [place] [address] MCH (RBC) [Entitic mass] 28.4 pg Normal 26.0-34.0 [facility] Comment on above: Performed By: #### 5 8410-2 #### ELO Larios (05723) [facility] ([facility]) [address] [place] [address] MCHC (RBC) [Mass/Vol] 32.0 g/dL Normal 32.0-36.0 [facility] Comment on above: Performed By: #### 5 8410-2 #### ELO Larios (98697) [facility] ([facility]) [address] [place] [address] MCV (RBC) [Entitic vol] 89 fL Normal 80-100 [facility] Comment on above: Performed By: #### 5 8410-2 #### ELO Larios (23989) [facility] ([facility]) [address] [place] [address] Nucleated RBC/100 WBC (Bld) [Ratio] 0.0 /100 WBCs Normal 0.0-0.0 [facility] Comment on above: Performed By: #### 5 8410-2 #### ELO Larios (62824) [facility] ([facility]) [address] [place] [address] Platelets (Bld) [#/Vol] 273 x10*3/uL Normal 150-450 [facility] Comment on above: Performed By: #### 5 8410-2 #### ELO Larios (73029) [facility] ([facility]) [address] [place] [address] RBC (Bld) [#/Vol] 4.22 x10*6/uL Normal 4.00-5.20 [facility] Comment on above: Performed By: #### 5 8410-2 #### ELO Larios (00754) [facility] ([facility]) [address] [place] [address] WBC (Bld) [#/Vol] 6.5 x10*3/uL Normal 4.4-11.3 [facility] Comment on above: Performed By: #### 5 8410-2 #### ELO Larios (42080) [facility] ([facility]) [address] [place] [address] Calcidiolon 06-23-2023 25-hydroxyvitamin D3 [Mass/Vol] 84 ng/mL Normal 30-100 [facility] Comment on above: Order Comment: Defic iency: < 20 ng/ml Insufficiency: 20-29 ng/ml Sufficiency: 30-100 ng/ml This assay accurately quantifies the sum of Vitamin D3, 25-Hydroxy and Vitamin D2,25-Hydroxy. Performed By: #### 1 989-3 #### ELO Larios (22635) [facility] ([facility]) [address] [place], [place] [address] Comprehensive metabolic 2000 panelon 06-23-2023 Albumin BCP dye [Mass/Vol] 4.0 g/dL Normal 3.4-5.0 [facility] Comment on above: Performed By: #### 2 4323-8 #### ELO Larios (91950) [facility] ([facility]) [address] [place] [address] ALP [Catalytic activity/Vol] 70 U/L Normal 33-136 [facility] Comment on above: Performed By: #### 2 4323-8 #### ELO Larios (39795) [facility] ([facility]) [address] [place] [address] ALT With P-5'-P [Catalytic activity/Vol] 9 U/L Normal 7-45 [facility] Comment on above: Result Comment: Petrona ents treated with Sulfasalazine may generate falsely decreased results for ALT. Performed By: #### 2 4323-8 #### ELO Larios (92421) [facility] ([facility]) [address] [place] [address] Anion gap [Moles/Vol] 12 mmol/L Normal 10-20 [facility] Comment on above: Performed By: #### 2 4323-8 #### ELO Larios (67244) [facility] ([facility]) [address] [place] [address] AST With P-5'-P [Catalytic activity/Vol] 15 U/L Normal 9-39 [facility] Comment on above: Performed By: #### 2 4323-8 #### ELO Larios (59782) [facility] ([facility]) [address] [place] [address] Bilirubin [Mass/Vol] 0.5 mg/dL Normal 0.0-1.2 [facility] Comment on above: Performed By: #### 2 4323-8 #### ELO Larios (90391) [facility] ([facility]) [address] [place] [address] Calcium [Mass/Vol] 9.6 mg/dL Normal 8.6-10.6 [facility] Comment on above: Performed By: #### 2 4323-8 #### ELO Larios (07022) [facility] ([facility]) [address] [place] [address] Chloride [Moles/Vol] 101 mmol/L Normal 98-107 [facility] Comment on above: Performed By: #### 2 4323-8 #### ELO Larios (18112) [facility] ([facility]) [address] [place] [address] CO2 [Moles/Vol] 33 mmol/L High 21-32 [facility] Comment on above: Performed By: #### 2 4323-8 #### ELO Larios (76086) [facility] ([facility]) [address] [place] [address] Creatinine [Mass/Vol] 0.81 mg/dL Normal 0.50-1.05 [facility] Comment on above: Performed By: #### 2 4323-8 #### ELO Larios (44391) [facility] ([facility]) [address] [place] [address] Glomerular filtration rate/1.73 sq M.predicted 75 mL/min/1.73m*2 Normal >60 [facility] Comment on above: Result Comment: Calc ulations of estimated GFR are performed using the 2020 CKD-EPI Study Refit equation without the race variable for the IDMS-Traceable creatinine methods. https://jasn.asnjournals.org/content/early//ASN.2020 049233 Performed By: #### 2 4323-8 #### ELO Larios (40051) [facility] ([facility]) [address] [place] [address] Glucose [Mass/Vol] 94 mg/dL Normal 74-99 [facility] Comment on above: Performed By: #### 2 4323-8 #### ELO RANDALL L (59281) [facility] ([facility]) [address] [place] [address] Potassium [Moles/Vol] 4.1 mmol/L Normal 3.5-5.3 [facility] Comment on above: Performed By: #### 2 4323-8 #### ELO RANDALL L (09366) [facility] ([facility]) [address] [place] [address] Protein [Mass/Vol] 6.6 g/dL Normal 6.4-8.2 [facility] Comment on above: Performed By: #### 2 4323-8 #### ELO RANDALL L (92701) [facility] ([facility]) [address] [place] [address] Sodium [Moles/Vol] 142 mmol/L Normal 136-145 [facility] Comment on above: Performed By: #### 2 4323-8 #### ELO RANDALL L (76832) [facility] ([facility]) [address] [place] [address] Urea nitrogen [Mass/Vol] 22 mg/dL Normal 6-23 [facility] Comment on above: Performed By: #### 2 4323-8 #### ELO Larios (53056) [facility] ([facility]) [address] [place] [address] Lipid 1996 panelon 4 Cholesterol [Mass/Vol] 162 mg/dL Normal 0-199 Un [facility] Comment on above: Result Comment: Age Desirable Borderline High High 0-19 Y 0 - 169 170 - 199 >/= 200 20-24 Y 0 - 189 190 - 224 >/= 225 >24 Y 0 - 199 200 - 239 >/= 240 All ranges are based on fasting samples. Specific therapeutic targets will vary based on patient-specific cardiac risk. Pediatric guidelines reference:Pediatrics 2011, 128(S5).Adult guidelines reference: NCEP ATPIII Guidelines,CY 2001, 258:2486-97 Venipuncture immediately after or during the administration of Metamizole may lead to falsely low results. Testing should be performed immediately prior to Metamizole dosing. Performed By: #### 2 4331-1 #### ELO Larios (33727) [facility] ([facility]) [address] [place] [address] Cholesterol in HDL [Mass/Vol] 58.8 mg/dL Normal [facility] Comment on above: Result Comment: Age Very Low Low Normal High 0-19 Y < 35 < 40 40-45 ---- 20-24 Y ---- < 40 >45 ---- >24 Y ---- < 40 40-60 >60 Performed By: #### 2 4331-1 #### ELO Larios (93558) [facility] ([facility]) [address] [place] [address] Cholesterol in LDL [Mass/Vol] 71 mg/dL Normal <=99 [facility] Comment on above: Result Comment: Near Borderline AGE Desirable Optimal High High Very High 0-19 Y 0 - 109 --- 110-129 >/= 130 ---- 20-24 Y 0 - 119 --- 120-159 >/= 160 ---- >24 Y 0 - 99 100-129 130-159 160-189 >/=190 Performed By: #### 2 4331-1 #### ELO Larios (46654) [facility] ([facility]) [address] [place] [address] Cholesterol in VLDL [Mass/Vol] 32 mg/dL Normal 0-40 [facility] Comment on above: Performed By: #### 2 4331-1 #### ELO Larios (88840) [facility] ([facility]) [address] [place] [address] CHOLESTEROL/HDL RATIO 2.8 Normal [facility] Comment on above: Result Comment: Ref Values Desirable < 3.4 High Risk > 5.0 Performed By: #### 2 4331-1 #### ELO Larios (90028) [facility] ([facility]) [address] [place] [address] NON HDL CHOLESTEROL 103 mg/dL Normal 0-149 [facility] Comment on above: Result Comment: Age Desirable Borderline High High Very High 0-19 Y 0 - 119 120 - 144 >/= 145 >/= 160 20-24 Y 0 - 149 150 - 189 >/= 190 ---- >24 Y 30 mg/dL above LDL Cholesterol goal Performed By: #### 2 4331-1 #### ELO Larios (53968) [facility] ([facility]) [address] [place] [address] Triglyceride [Mass/Vol] 159 mg/dL High 0-149 [facility] Comment on above: Result Comment: Age Desirable Borderline High High Very High 0 D-90 D 19 - 174 ---- ---- ---- 91 D- 9 Y 0 - 74 75 - 99 >/= 100 ---- 10-19 Y 0 - 89 90 - 129 >/= 130 ---- 20-24 Y 0 - 114 115 - 149 >/= 150 ---- >24 Y 0 - 149 150 - 199 200- 499 >/= 500 Venipuncture immediately after or during the administration of Metamizole may lead to falsely low results. Testing should be performed immediately prior to Metamizole dosing. Performed By: #### 2 4331-1 #### ELO Larios (06995) [facility] ([facility]) [address] [place] [address] TSH WITH REFLEX TO FREE T4 I F ABNORMALon 06-23-2023 TSH Qn 1.33 m[IU]/L Normal 0.44-3.98 [facility] Comment on above: Order Comment: TSH t esting is performed using different testing methodology at [facility] than [facility]. Direct result comparisons should only be made within the same method. Performed By: #### T HYDS #### ELO Larios ([id number]) [facility] ([facility]) [address] [place] [address] Absolute lymphocyte countOrd ered By: Mercedes Lock on 05-01-2023 Lymphocytes Auto (Unsp spec) [#/Vol] 1.43 10*3/uL 0.83-4.51 [facility] Albumin, Serumon 05-01-2023 Albumin [Mass/Vol] 3.6 g/dL Normal 3.2-5.0 [facility] Comment on above: Performed By: #### L 501.1800, L100.0100, L500.2500 #### [facility] [address] [facility] [place], [address] Automated lymphocyte count a s percentage of total leukocytesOrdered By: Mercedes Lock on 05-01-2023 Lymphocytes/100 WBC Auto (Unsp spec) 20.8 % 19-41 [facility] Basic Metabolic Profile (BMP )on 05-01-2023 BUN/CRE 35.7 RATIO High 10-20 [facility] Comment on above: Performed By: #### L 501.1800, L100.0100, L500.2500 #### [facility] [address] [facility] [place], [address] CA,Total 9.0 mg/dL Normal 8.5-10.1 [facility] Comment on above: Performed By: #### L 501.1800, L100.0100, L500.2500 #### [facility] [address] [place], [address] Chloride [Moles/Vol] 105 mmol/L Normal 98-107 [facility] Comment on above: Performed By: #### L 501.1800, L100.0100, L500.2500 #### [facility] [address] [place], [address] CO2 [Moles/Vol] 32.0 mmol/L Normal 21.0-32.0 [facility] Comment on above: Performed By: #### L 501.1800, L100.0100, L500.2500 #### [facility] [address] [place], [address] Creatinine [Mass/Vol] 0.87 mg/dL Normal 0.55-1.02 [facility] Comment on above: Result Comment: The validity of the calculated GFR GFRAA in patients over 70 years has not been determined. Clinical correlation is essential. Performed By: #### L 501.1800, L100.0100, L500.2500 #### [facility] [address] [place], [address] EST GFR - AA 81 mL/min Normal >60 [facility] Comment on above: Result Comment: Afri can [place] GFR Calc Performed By: #### L 501.1800, L100.0100, L500.2500 #### [facility] [address] [place], [address] GAP 5 Normal 5-15 [facility] Comment on above: Performed By: #### L 501.1800, L100.0100, L500.2500 #### [facility] [address] [place], [address] GFR/1.73 sq M.predicted among non-blacks MDRD (S/P/Bld) [Vol rate/Area] 67 mL/min/{1.73_m2} Normal >60 [facility] Comment on above: Result Comment: Non- GFR Calc Performed By: #### L 501.1800, L100.0100, L500.2500 #### [facility] [address] [place], [address] Glucose [Mass/Vol] 94 mg/dL Normal 74-106 [facility] Comment on above: Performed By: #### L 501.1800, L100.0100, L500.2500 #### [facility] [address] [place], [address] Potassium [Moles/Vol] 4.4 mmol/L Normal 3.5-5.1 [facility] Comment on above: Performed By: #### L 501.1800, L100.0100, L500.2500 #### [facility] [address] [place], [address] Sodium [Moles/Vol] 142 mmol/L Normal 136-145 [facility] Comment on above: Performed By: #### L 501.1800, L100.0100, L500.2500 #### [facility] [address] [place], [address] Urea nitrogen [Mass/Vol] 31 mg/dL High 7-18 [facility] Comment on above: Performed By: #### L 501.1800, L100.0100, L500.2500 #### [facility] [address] [place], [address] Basophil percentageOrdered B y: Merceeds Lock on 05-01-2023 Basophils/100 WBC (Bld) 0.4 % 0-1 [facility] Chloride [Moles/Vol] 105 mmol/L 98-107 [facility] Eosinophils/100 WBC (Bld) 3.8 % 0-5 [facility] Glucose [Mass/Vol] 94 mg/dL 74-106 [facility] Hemoglobin (Bld) [Mass/Vol] 12.3 g/dL 12.0-15.0 [facility] Monocytes/100 WBC (Bld) 7.8 % 0-10 [facility] Neutrophils (Bld) [#/Vol] 4.6 10*3/uL 2.0-7.7 [facility] Neutrophils/100 WBC (Bld) 66.9 % 47-70 [facility] Potassium [Moles/Vol] 4.4 mmol/L 3.5-5.1 [facility] Sodium [Moles/Vol] 142 mmol/L 136-145 [facility] WBC (Bld) [#/Vol] 6.9 10*3/uL 4.4-11.0 [facility] CBC W/Diff, Automatedon 03-0 7-2023 Absolute Lymph 1.43 X10 3/uL Normal 0.83-4.51 [facility] Comment on above: Performed By: #### L 501.1800, L100.0100, L500.2500 #### [facility] [address] [place], [address] Absolute Neut 4.6 X10 3/uL Normal 2.0-7.7 [facility] Comment on above: Performed By: #### L 501.1800, L100.0100, L500.2500 #### [facility] [address] [place], [address] Basophils/100 WBC (Bld) 0.4 % Normal 0-1 [facility] Comment on above: Performed By: #### L 501.1800, L100.0100, L500.2500 #### [facility] [address] [place], [address] Eosinophils/100 WBC (Bld) 3.8 % Normal 0-5 [facility] Comment on above: Performed By: #### L 501.1800, L100.0100, L500.2500 #### [facility] [address] [place], [address] Erythrocyte distribution width (RBC) [Ratio] 13.0 % Normal 11.6-14.6 [facility] Comment on above: Performed By: #### L 501.1800, L100.0100, L500.2500 #### [facility] [address] [place], [address] Hematocrit (Bld) [Volume fraction] 38.0 % Normal 37-47 [facility] Comment on above: Performed By: #### L 501.1800, L100.0100, L500.2500 #### [facility] [address] [place], [address] Hemoglobin (Bld) [Mass/Vol] 12.3 g/dL Normal 12.0-15.0 [facility] Comment on above: Performed By: #### L 501.1800, L100.0100, L500.2500 #### [facility] [address] [place], [address] IG% 0.300 Normal 0.0-0.9 [facility] Comment on above: Result Comment: IG% - Immature Granulocytes (promyelocytes, myelocytes and metamyelocytes) > 1% indicates that a LEFT SHIFT is Present. Performed By: #### L 501.1800, L100.0100, L500.2500 #### [facility] [address] [place], [address] Lymphocytes/100 WBC (Bld) 20.8 % Normal 19-41 [facility] Comment on above: Performed By: #### L 501.1800, L100.0100, L500.2500 #### [facility] [address] [place], [address] MCH (RBC) [Entitic mass] 28.8 pg Normal 27.0-32.0 [facility] Comment on above: Performed By: #### L 501.1800, L100.0100, L500.2500 #### [facility] [address] [place], [address] MCHC (RBC) [Mass/Vol] 32.4 g/dL Normal 32-36 [facility] Comment on above: Performed By: #### L 501.1800, L100.0100, L500.2500 #### [facility] [address] [place], [address] MCV (RBC) [Entitic vol] 89.0 fL Normal 81-99 [facility] Comment on above: Performed By: #### L 501.1800, L100.0100, L500.2500 #### [facility] [address] [place], [address] Monocytes/100 WBC (Bld) 7.8 % Normal 0-10 [facility] Comment on above: Performed By: #### L 501.1800, L100.0100, L500.2500 #### [facility] [address] [place], [address] Neutrophils/100 WBC (Bld) 66.9 % Normal 47-70 [facility] Comment on above: Performed By: #### L 501.1800, L100.0100, L500.2500 #### [facility] [address] [place], [address] Nucleated RBC (Bld) [#/Vol] 0 10*3/uL Normal 0-5 [facility] Comment on above: Performed By: #### L 501.1800, L100.0100, L500.2500 #### [facility] [address] [place], [address] Platelet mean volume (Bld) [Entitic vol] 9.7 fL Normal 6.2-12.0 [facility] Comment on above: Performed By: #### L 501.1800, L100.0100, L500.2500 #### [facility] [address] [place], [address] Platelets (Bld) [#/Vol] 247 10*3/uL Normal 150-450 [facility] Comment on above: Performed By: #### L 501.1800, L100.0100, L500.2500 #### [facility] [address] [place], [address] RBC (Bld) [#/Vol] 4.27 10*6/uL Normal 4.2-5.4 [facility] Comment on above: Performed By: #### L 501.1800, L100.0100, L500.2500 #### [facility] [address] [place], [address] RDW SD 42.5 fl Normal 35.1-43.9 [facility] Comment on above: Performed By: #### L 501.1800, L100.0100, L500.2500 #### [facility] [address] [place], [address] WBC (Bld) [#/Vol] 6.9 10*3/uL Normal 4.4-11.0 [facility] Comment on above: Performed By: #### L 501.1800, L100.0100, L500.2500 #### [facility] [address] [place], [address] Determination of erythrocyte mean corpuscular volume (MCV)Ordered By: Mercedes Lock on 05-01-2023 MCV (RBC) [Entitic vol] 89.0 fL 81-99 [facility] Erythrocyte distribution wid th ratioOrdered By: Mercedes Lock on 05-01-2023 Erythrocyte distribution width (RBC) [Ratio] 13.0 % 11.6-14.6 [facility] Erythrocyte distribution wid th standard deviationOrdered By: Mercedes Lock on 05-01-2023 Erythrocyte distribution width (RBC) [Entitic vol] 42.5 fL 35.1-43.9 [facility] Hematocrit Auto (Bld) [Volum e fraction]Ordered By: Mercedes Lock on 05-01-2023 Hematocrit (Bld) [Volume fraction] 38.0 % 37-47 [facility] Immature granulocytes/100 WB C Auto (Bld)Ordered By: Mercedes Lock on 05-01-2023 Immature granulocytes/100 WBC (Bld) 0.300 % 0.0-0.9 [facility] Comment on above: IG% - Immature Granu locytes (promyelocytes, myelocytes and metamyelocytes) > 1% indicates that a LEFT SHIFT is Present. Laboratory - Chemistry and C hemistry - challengeOrdered By: Mercedes Lock on 05-01-2023 CO2 [Moles/Vol] 32.0 mmol/L 21.0-32.0 [facility] Urea nitrogen/Creatinine [Mass ratio] 35.7 mg/mg 10-20 [facility] Laboratory - Hematology and Cell countsOrdered By: Mercedes Lock on 05-01-2023 MCH (RBC) [Entitic mass] 28.8 pg 27.0-32.0 [facility] MCHC (RBC) [Mass/Vol] 32.4 g/dL 32 [facility] Nucleated RBC/100 WBC (Bld) [Ratio] 0 % 0-5 [facility] Platelet mean volume (Bld) [Entitic vol] 9.7 fL 6.2-12.0 [facility] Platelets (Bld) [#/Vol] 247 10*3/uL 150-450 [facility] No Panel InformationOrdered By: Mercedes Lock on 05-01-2023 Estimated GFR (MDRD) Amer 81 mL/min >60 [facility] Comment on above: GFR Calc Estimated GFR (MDRD) Non-Af Amer 67 mL/min >60 [facility] Comment on above: Non- GFR Calc RBC Auto (Bld) [#/Vol]Ordere d By: Mercedes Lock on 05-01-2023 RBC (Bld) [#/Vol] 4.27 10*6/uL 4.2-5.4 [facility] Serum or plasma calcium colette urement (mass/volume)Ordered By: Mercedes Lock on 05-01-2023 Calcium [Mass/Vol] 9.0 mg/dL 8.5-10.1 [facility] Serum or plasma creatinine m easurement (mass/volume)Ordered By: Mercedes Lock on 05-01-2023 Creatinine [Mass/Vol] 0.87 mg/dL 0.55-1.02 [facility] Comment on above: The validity of the calculated GFR & GFRAA in patients over 70 years has not been determined. Clinical correlation is essential. Serum or plasma urea nitroge n measurement (mass/volume)Ordered By: Mercedes Lock on 05-01-2023 Urea nitrogen [Mass/Vol] 31 mg/dL 7-18 [facility] Thin prep Papanicolaou smear with manual screeningOrdered By: Mercedes Lock on 05-01-2023 Thin prep Papanicolaou smear with manual screening 3.6 g/dL 3.2-5.0 [facility] Thin prep Papanicolaou smear with manual screening 5 5-15 [facility] 12 Lead EKGon 04-18-2023 12 Lead EKG [facility] Cardiovascular Services [address] [place] [address] 12 Lead EKG 04/18/23 1223 MR#: [id number] Acct: [id number] Name: LEDY CHING Rep #: [id number] : 1945 77 From: Edwin Elias MD Attending Dr: Dr. Mercedes Lock MD Status: REG CLI Ordering Dr: Mercedes Lock MD Date: 04/18/23 Location: [place] Sex: F C Admitted: Test Reason : SURGERY Blood Pressure : / mmHG Vent. Rate : 054 BPM Atrial Rate : 054 BPM P-R Int : 148 ms QRS Dur : 090 ms QT Int : 436 ms P-R-T Axes : 036 -14 053 degrees QTc Int : 413 ms Sinus bradycardia with Premature atrial complexes Otherwise normal ECG No previous ECGs available Confirmed by EDWIN ELIAS MD ([id number]), dictionary editor ALONSO HARVEY ([id number]) on 04/18/2023 1:04:17 PM Referred By: Mercedes Lock Confirmed By:EDWIN ELIAS MD 04/18/23 4979 Date Edwin Elias MD CC: Dr. Saima Mendoza MD; Dr. Mercedes Lock MD Signed Normal [facility] Extremity Lower without Cont raon 04-18-2023 Extremity Lower without Contra [facility] Imaging Services [address] [place] [address] Extremity Lower without Contra MR#: [id number] Acct: [id number] Name: LEDY CHING Rep #: [id number] : 1945 F 77 From: Martin Rivera MD PCP: Dr. Saima Mendoza MD Status: REG CLI Study: Extremity Lower without Contra Date of Exam: 0 04/18/23 Exam# [id number] Ordering Dr: Mercedes Lock MD [id number] STUDY: CT LEFT KNEE WITHOUT CONTRAST REASON FOR EXAM: Female, 77 years old. PRE OP -- RADIATION DOSAGE (If Supplied By Facility): CTDIvol = ( 18.76 ) mGy, DLP = ( 1408.72 ) mGycm TECHNIQUE: Transaxial CT imaging of the knee was performed with localizing images at the hip and ankle utilizing joint replacement protocol. Coronal and sagittal images were reformatted. Individualized dose optimization techniques were used for this CT. COMPARISON: None. FINDINGS: There is demineralization of the osseous structures. There is no acute fracture. There is joint space narrowing and spurring of the medial, lateral, and patellofemoral compartments. There is moderate joint effusion. Soft tissues are intact. CT/Extremity Lower without Contra IMPRESSION: Degenerative change. Electronically Signed: Martin Rivera MD at 14:21 EST , CC: Dr. Saima Mendoza MD; Dr. Mercedes Lock MD Accounts Receivable Bookkeeper: Signed Normal [facility] 08-23-2022 [facility] Telephone (NEAGCLM) LEDY CHING ([id number]) 1945 F Date Time Provider Department 08/23/22 STEVIE MCCARTY During your visit today, we recorded the following information about you: Summer Mcclain Ma 08/23/2022 10:55 AM Signed No Show Documentation Ledy Ching no showed for an appointment on 08/05/22 with Stevie Mccarty MD, PhD at 11:00 am. She [...] Is this the Third or Fourth No Show? No Summer Mcclain Ma August 23, 2022 10:55 AM Allergies As of Date: 08/23/2022 (No Known Allergies) Date Reviewed: 06/06/2022 Reviewed by: Rosemary Mg Ma - Fully Assessed Reason for Visit: Missed Appointment [1304] Prescriptions as of 08/23/2022 - carvedilol (COREG) 3.125 mg tablet - calcium carbonate (CALTRATE) 600 mg calcium (1,500 mg) tab Take by mouth. - ascorbic acid, vitamin C, (VITAMIN C) 500 mg tablet Take by mouth. - Cholecalciferol, Vitamin D3, 50 mcg (2,000 unit) cap Take by mouth. - lisinopril (ZESTRIL, PRINIVIL) 40 mg tablet - omeprazole (PRILOSEC) 40 mg capsule - hydroCHLOROthiazide (HYDRODIURIL, ESIDRIX) 50 mg tablet - amLODIPine (NORVASC) 10 mg tablet - vitamin A (AQUASOL A) 10,000 unit capsule Take by mouth. - traZODone (DESYREL) 100 mg tablet - meloxicam (MOBIC) 15 mg tablet - simvastatin 20 mg tablet Take 20 mg by mouth daily at bedtime. - paroxetine 20 mg tablet Take 20 mg by mouth once daily. Problem List As Of Date 08/23/2022 Noted Resolved Chronic midline low back pain with bilateral sc*02/02/2018 Fall [W19.XXXA] 06/25/2022 Hypertension [I10] 06/19/2022 Abnormal gait [R26.9] 07/02/2022 Allergic rhinitis [J30.9] 06/19/2022 Cardiac murmur [R01.1] 06/19/2022 Current moderate episode of major depressive di*06/19/2022 Endometriosis [N80.9] 07/02/2022 Fluttering heart [I49.8] 07/02/2022 Fracture of second cervical vertebra (HCC) [S12*04/18/2022 Generalized osteoarthritis of multiple sites [M*06/19/2022 GERD (gastroesophageal reflux disease) [K21.9] 06/19/2022 History of hypertension [Z86.79] 07/02/2022 History of osteopenia [Z87.39] 07/02/2022 Hyperlipidemia [E78.5] 06/19/2022 Inflammatory arthritis [M19.90] 06/19/2022 Insomnia [G47.00] 06/19/2022 Lower gastrointestinal hemorrhage [K92.2] 07/02/2022 Menopause present [Z78.0] 07/02/2022 Nasal congestion [R09.81] 07/02/2022 Osteopenia [M85.80] 06/19/2022 Polyp of colon [K63.5] 07/02/2022 Vitamin D deficiency [E55.9] 06/19/2022 Encounter Status:Closed by SUMMER MCCLAIN MA on 08/23/22 [facility] 07-05-2022 [facility] Telephone (AGGERIHWW ) LEDY CHING ([id number]) 1945 F Date Time Provider Department 07/05/22 SHANIQUA VIERA AGGERIHWW During your visit today, we recorded the following information about you: Shaniqua Viera DO 07/05/2022 2:53 PM Signed Please help to call patient and family, patient unfortunately did not show up for her appointment today, if patient still interested in geriatric assessment, please help patient to reschedule initial geriatric assessment (1hr), thank you DO Renata Adams 07/05/2022 3:57 PM Signed I called patient and left voice mail about rescheduling Allergies As of Date: 07/05/2022 (No Known Allergies) Date Reviewed: 06/06/2022 Reviewed by: Rosemary Mg Ma - Fully Assessed Reason for Visit: Appointment [186] No Show [1558] Prescriptions as of 07/05/2022 - carvedilol (COREG) 3.125 mg tablet - calcium carbonate (CALTRATE) 600 mg calcium (1,500 mg) tab Take by mouth. - ascorbic acid, vitamin C, (VITAMIN C) 500 mg tablet Take by mouth. - Cholecalciferol, Vitamin D3, 50 mcg (2,000 unit) cap Take by mouth. - lisinopril (ZESTRIL, PRINIVIL) 40 mg tablet - omeprazole (PRILOSEC) 40 mg capsule - hydroCHLOROthiazide (HYDRODIURIL, ESIDRIX) 50 mg tablet - amLODIPine (NORVASC) 10 mg tablet - vitamin A (AQUASOL A) 10,000 unit capsule Take by mouth. - traZODone (DESYREL) 100 mg tablet - meloxicam (MOBIC) 15 mg tablet - simvastatin 20 mg tablet Take 20 mg by mouth daily at bedtime. - paroxetine 20 mg tablet Take 20 mg by mouth once daily. Problem List As Of Date 07/05/2022 Noted Resolved Chronic midline low back pain with bilateral sc*02/02/2018 Fall [W19.XXXA] 06/25/2022 Hypertension [I10] 06/19/2022 Abnormal gait [R26.9] 07/02/2022 Allergic rhinitis [J30.9] 06/19/2022 Cardiac murmur [R01.1] 06/19/2022 Current moderate episode of major depressive di*06/19/2022 Endometriosis [N80.9] 07/02/2022 Fluttering heart [I49.8] 07/02/2022 Fracture of second cervical vertebra (HCC) [S12*04/18/2022 Generalized osteoarthritis of multiple sites [M*06/19/2022 GERD (gastroesophageal reflux disease) [K21.9] 06/19/2022 History of hypertension [Z86.79] 07/02/2022 History of osteopenia [Z87.39] 07/02/2022 Hyperlipidemia [E78.5] 06/19/2022 Inflammatory arthritis [M19.90] 06/19/2022 Insomnia [G47.00] 06/19/2022 Lower gastrointestinal hemorrhage [K92.2] 07/02/2022 Menopause present [Z78.0] 07/02/2022 Nasal congestion [R09.81] 07/02/2022 Osteopenia [M85.80] 06/19/2022 Polyp of colon [K63.5] 07/02/2022 Vitamin D deficiency [E55.9] 06/19/2022 Encounter Status:Closed by SHANIQUA VIERA on 07/05/22 [facility] LEDY CHING ([id number]) 1945 F Date Time Provider Department 06/13/22 STEVIE MCCARTY During your visit today, we recorded the following information about you: Allergies As of Date: 06/13/2022 (No Known Allergies) Date Reviewed: 06/06/2022 Reviewed by: Rosemary Mg Ma - Fully Assessed Reason for Visit: Appointment [186] Cmt: [facility] 06[facility]24 Prescriptions as of 06/13/2022 - carvedilol (COREG) 3.125 mg tablet - calcium carbonate (CALTRATE) 600 mg calcium (1,500 mg) tab Take by mouth. - ascorbic acid, vitamin C, (VITAMIN C) 500 mg tablet Take by mouth. - Cholecalciferol, Vitamin D3, 50 mcg (2,000 unit) cap Take by mouth. - lisinopril (ZESTRIL, PRINIVIL) 40 mg tablet - omeprazole (PRILOSEC) 40 mg capsule - hydroCHLOROthiazide (HYDRODIURIL, ESIDRIX) 50 mg tablet - amLODIPine (NORVASC) 10 mg tablet - vitamin A (AQUASOL A) 10,000 unit capsule Take by mouth. - traZODone (DESYREL) 100 mg tablet - meloxicam (MOBIC) 15 mg tablet - simvastatin 20 mg tablet Take 20 mg by mouth daily at bedtime. - paroxetine 20 mg tablet Take 20 mg by mouth once daily. Problem List As Of Date 06/13/2022 Noted Resolved Chronic midline low back pain with bilateral sc*02/02/2018 Encounter Status:Closed by DORCAS COOK on 06/13/22 [facility] 06-06-2022 CNOV Office Visit (NADINE Porras) LEDY CHING ([id number]) 1945 F Date Time Provider Department 06/06/22 11:15 AM STEVIE MCCARTY During your visit today, we recorded the following information about you: Pulse Blood pressure Weight Height 52/minute 149/77 73.7 kg 1.727 m Stevie Mccarty MD, PhD 06/06/2022 11:18 AM Signed NEUROSURGERY FOLLOW UP OFFICE NOTE Stevie Mccarty MD, PhD Date of visit: June 06, 2022 Patient Name: Ms.Shirley Vern Ching Date of : 1945 Current Age: [age] year old Sex: female MRN/E# [id number] Last Office Visit: 04/25/2022 Chief Complaint: Patient [...] Pain Level: 7 Pain Location: Neck Description: Aching;Spasm;Stabbing; Stiffness Duration Units: Months Frequency: Intermittent Intervention/Comfort measure: [...] and numbness. Hematological: Does not bruise/bleed easily. Psychiatric/Behavioral : Negative for agitation. The patient is not [...] disappointed to hear that she had weaned h (more content not included)... Normal [facility] XR CERVICAL 2V AP/LATon 04- XR CERVICAL 2V AP/LAT * * *Final Report* * * DATE OF EXAM: Jun 06 2022 10:30AM A1X 5308 - XR CERVICAL 2V AP/LAT / PROCEDURE REASON: Closed nondisplaced fracture of second cervical vertebra, unspecified fracture m * * * * Physician Interpretation * * * * EXAM: CERVICAL SPINE, 2 VIEWS CLINICAL: 76-year-old female with closed fracture of second cervical vertebrae TECHNIQUE: AP, lateral, COMPARISON: 04/25/2022 RESULTS: Counting reference: Craniocervical junction.. Degenerative disc and facet disease and cervical alignment is unchanged. The C2 vertebral fracture is not visualized on the radiograph. The alignment of the odontoid dens is unchanged. IMPRESSION: NO CHANGE COMPARED TO THE PREVIOUS EXAM. Accounts Receivable Bookkeeper: P[employer] Transcribe Date/Time: Jun 09 2022 2:37P Dictated by : VANESA PÉREZ MD This examination was interpreted and the report reviewed and electronically signed by: VANESA PÉREZ MD on Jun 09 2022 2:39PM EST [id number] Normal [facility] Basophil percentageOrdered B y: Dr. Mendoza on 05-29-2022 Bilirubin [Mass/Vol] 0.50 mg/dL 0.20-1.00 [facility] Comment on above: For patients on eltr ombopag therapy, use of Dimension [place] TBIL is not recommended. Chloride [Moles/Vol] 102 mmol/L 98-107 [facility] Cholesterol [Mass/Vol] 180 mg/dL <200 [facility] Comment on above: <200 mg/dL Desirable 200-240 mg/dL Borderline >240 mg/dL High Risk Glucose [Mass/Vol] 91 mg/dL 74-106 [facility] Potassium [Moles/Vol] 3.6 mmol/L 3.5-5.1 [facility] Protein [Mass/Vol] 7.4 g/dL 6.4-8.2 [facility] Sodium [Moles/Vol] 140 mmol/L 136-145 [facility] Triglyceride [Mass/Vol] 128 mg/dL <199 [facility] Comment on above: The drugs N-Acetylcy steine and Metamizole may falsely depress this assay.Serum Triglycerides Reference Interval Normal <150 mg/dL Borderline high 150 - 199 mg/dL High 200 - 499 mg/dL Very High > or = 500 mg/dL WBC (Bld) [#/Vol] 5.7 10*3/uL 4.4-11.0 [facility] Blood erythrocytes count (nu mber/volume)Ordered By: Dr. Mendoza on 05-29-2022 RBC (Bld) [#/Vol] 4.55 10*6/uL 4.2-5.4 [facility] Blood hemoglobin measurement (mass/volume)Ordered By: Dr. Mendoza on 05-29-2022 Hemoglobin (Bld) [Mass/Vol] 12.7 g/dL 12.0-15.0 [facility] Blood platelet mean volumeOr dered By: Dr. Mendoza on 05-29-2022 Platelet mean volume (Bld) [Entitic vol] 9.8 fL 6.2-12.0 [facility] Determination of erythrocyte mean corpuscular volume (MCV)Ordered By: Dr. Mendoza on 05-29-2022 MCV (RBC) [Entitic vol] 87.9 fL 81-99 [facility] Hematocrit Auto (Bld) [Volum e fraction]Ordered By: Dr. Mendoza on 05-29-2022 Hematocrit (Bld) [Volume fraction] 40.0 % 37-47 [facility] Laboratory - Chemistry and C hemistry - challengeOrdered By: Dr. Mendoza on 05-29-2022 ALP [Catalytic activity/Vol] 66 U/L 45-117 [facility] ALT [Catalytic activity/Vol] 18 U/L 13-56 [facility] CO2 [Moles/Vol] 33.0 mmol/L 21.0-32.0 [facility] Globulin (S) [Mass/Vol] 3.7 g/dL 2.2-4.2 [facility] Urea nitrogen/Creatinine [Mass ratio] 25.9 mg/mg 10-20 [facility] Laboratory - Hematology and Cell countsOrdered By: Dr. Mendoza on 05-29-2022 Erythrocyte distribution width (RBC) [Entitic vol] 42.3 fL 35.1-43.9 [facility] Erythrocyte distribution width (RBC) [Ratio] 13.1 % 11.6-14.6 [facility] MCH (RBC) [Entitic mass] 27.9 pg 27.0-32.0 [facility] MCHC Auto (RBC) [Mass/Vol]Or dered By: Dr. Mendoza on 05-29-2022 MCHC (RBC) [Mass/Vol] 31.8 g/dL 32-36 [facility] No Panel InformationOrdered By: Dr. Mendoza on 05-29-2022 Estimated GFR (MDRD) Amer 83 mL/min >60 [facility] Comment on above: GFR Calc Estimated GFR (MDRD) Non-Af Amer 69 mL/min >60 [facility] Comment on above: Non- GFR Calc Thyroid Stimulating Hormone (TSH) 1.65 uIU/mL 0.358-3.74 [facility] Vitamin D 25-Hydroxy 67.8 ng/mL [facility] Comment on above: Vitamin D 25(OH) Sta tus Range Deficiency <20 ng/mL (50nmol/L) Insufficiency 20 - 30 ng/mL (50 - 75 nmol/L) Sufficiency 30 - 100 ng/mL (75 - 250 nmol/L) Toxicity >100 ng/mL (>250 nmol/L) Platelets bldOrdered By: Dr. Mendoza on 05-29-2022 Platelets (Bld) [#/Vol] 253 10*3/uL 150-450 [facility] Serum or plasma albumin colette urement (mass/volume)Ordered By: Dr. Mendoza on 05-29-2022 Albumin [Mass/Vol] 3.7 g/dL 3.2-5.0 [facility] Serum or plasma albumin/glob ulin mass ratioOrdered By: Dr. Mendoza on 05-29-2022 Albumin/Globulin [Mass ratio] 1.0 {ratio} 0.9-2.4 [facility] Serum or plasma calcium colette urement (mass/volume)Ordered By: Dr. Mendoza on 05-29-2022 Calcium [Mass/Vol] 9.3 mg/dL 8.5-10.1 [facility] Serum or plasma cholesterol in HDL measurement (mass/volume)Ordered By: Dr. Mendoza on 05-29-2022 Cholesterol in HDL [Mass/Vol] 67 mg/dL >40 [facility] Comment on above: The drugs N-Acetylcy steine and Metamizole may falsely depress this assay. Reference Range HDL <40 mg/dL Low HDL Cholesterol HDL >or= 60 mg/dL High HDL Cholesterol Serum or plasma cholesterol in VLDL measurement (mass/volume)Ordered By: Dr. Mendoza on 05-29-2022 Cholesterol in VLDL [Mass/Vol] 26 mg/dL 5-40 [facility] Serum or plasma creatinine m easurement (mass/volume)Ordered By: Dr. Mendoza on 05-29-2022 Creatinine [Mass/Vol] 0.85 mg/dL 0.55-1.02 [facility] Comment on above: The validity of the calculated GFR & GFRAA in patients over 70 years has not been determined. Clinical correlation is essential. Serum or plasma low density lipoprotein (LDL) cholesterol measurement (mass/volume)Ordered By: Dr. Mendoza on 05-29-2022 Cholesterol in LDL [Mass/Vol] 87 mg/dL 0-130 [facility] Serum or plasma urea nitroge n measurement (mass/volume)Ordered By: Dr. Mendoza on 05-29-2022 Urea nitrogen [Mass/Vol] 22 mg/dL 7-18 [facility] Thin prep Papanicolaou smear with manual screeningOrdered By: Dr. Mendoza on 05-29-2022 Thin prep Papanicolaou smear with manual screening 21 U/L 15-37 [facility] Thin prep Papanicolaou smear with manual screening 5 5-15 [facility] CNOVon 04-25-2022 CNOV Office Visit (NEAGCL M) LEDY CHING ([id number]) 1945 F Date Time Provider Department 04/25/22 3:00 PM STEVIE MCCARTY During your visit today, we recorded the following information about you: Pulse Respiration Blood pressure Weight 59/minute 16/minute 142/82 72.6 kg Height 1.727 m Stevie Mccarty MD, PhD 05/05/2022 12:46 PM Signed NEUROSURGERY CONSULT NOTE Stevie Mccarty MD, PhD Date of visit: April 25, 2022 Patient Name: Ms.Shirley Vern Ching Date of : 1945 Current Age: [age] year old Sex: female MRN/E# [id number] Chief Complaint: Patient presents with: New Patient HISTORY OF PRESENT ILLNESS : The patient is a 76 year old, right handed female with a past medical history of diverticulitis, diverticulosis and HCL who is referred by Dr. Mendoza for neurosurgical evaluation. The patient presented to [facility] ED on 04/17/2022 after a fall. She [...] and numbness. Hematological: Does not bruise/bleed easily. Psychiatric/Behavioral : Negative for agitation. The patient is not [...] 5 5 Wrist extension 5 5 Finger flexion/management expert 5 5 Lower Extremity Right Left Hip flexion 5 5 Knee flexion 5 5 Knee extension 5 5 Ankle plantarflexion 5 5 Ankle dorsiflexion 5 5 Reflexes Deep tendo (more content not included)... Normal [facility] XR CERV GENERAL 2V AP/LATon 04-25-2022 [facility] XR CERVICAL 2V AP/LATon 03- XR CERVICAL 2V AP/LAT * * *Final Report* * * DATE OF EXAM: Apr 25 2022 3:38PM A1X 5308 - XR CERVICAL 2V AP/LAT / PROCEDURE REASON: Closed nondisplaced fracture of second cervical vertebra, unspecified fracture m * * * * Physician Interpretation * * * * TECHNIQUE: XR CERVICAL 2V AP/LAT EXAM DATE: 04/25/2022 3:38 PM COMPARISON STUDIES: Outside hospital CT 04/17/2022 CLINICAL HISTORY: Fracture follow-up Closed nondisplaced fracture of second cervical vertebra, unspecified fracture morphology, sequela RESULT: Counting reference: Craniocervical junction. Anatomic Variants: None. C2 fracture seen on prior CT not well seen on x-ray Borderline minimal anterolisthesis C4/5 2 mm C5/6, 1-2 mm C6/7 retrolisthesis Vertebral body heights maintained Disc space narrowing with endplate osteophytes severe at C5/6, C6/7, and moderate at C4/5 No prevertebral soft tissue swelling Anterior atlantodens interval maintained Facet and UVJ degenerative change IMPRESSION: C2 fracture seen on prior CT not well seen on x-ray Accounts Receivable Bookkeeper: [facility] Transcribe Date/Time: Apr 29 2022 6:05P Dictated by : RACHAEL LOPEZ MD This examination was interpreted and the report reviewed and electronically signed by: RACHAEL LOPEZ MD on Apr 29 2022 6:11PM EST [id number] Normal [facility] Office Visiton 02-06-2022 Follow-up visit Diagnoses/Problems Encounter for preventive health examination (V70.0) (Z00.00) Current moderate episode of major depressive disorder (296.22) (F32.1) Generalized osteoarthritis of multiple sites (715.09) (M15.9) GERD (gastroesophageal reflux disease) (530.81) (K21.9) Hypercholesterolemia (272.0) (E78.00) stable as of 06/18/2011 Hyperlipidemia (272.4) (E78.5) Hypertension (401.9) (I10) stable as of 06/18/2011 Vitamin D deficiency (268.9) (E55.9) Orders Current moderate episode of major depressive disorder, Health Maintenance, Generalized osteoarthritis of multiple sites, GERD (gastroesophageal reflux disease), Hypercholesterolemia, Hyperlipidemia, Hypertension, Vitamin D deficiency Complete Blood Count; Status:Active; Requested for:14May2022; Comprehensive Metabolic Panel; Status:Active; Requested for:14May2022; Lipid Panel; Status:Active; Requested for:14May2022; TSH WITH REFLEX TO FREE T4 IF ABNORMAL; Status:Active; Requested for:14May2022; Vitamin D 25-Hydroxy; Status:Active; Requested for:14May2022; Generalized osteoarthritis of multiple sites Start: Disability Placard; Duration 5 years Patient Discussion/Summary Gianna, Please help reschedule mammo for pt f/u May with 45 min wellness exam get fasting labs before May appt Provider Impressions 1. Depression is stable 2. Hypertension, recheck blood pressure is borderline at 130/78. I have asked the patient to watch her salt, try to increase her exercise and check her blood pressure readings at home and bring them to the next appointment 3. Hypercholesterolemia, patient is on simvastatin 20 mg daily was given a requisition to check lipid profile before next appointment 4. Insomnia is doing well with trazodone but she does request a refill 5. Osteoarthritis, patient was given a handicap placard and has an appointment next week with orthopedic surgeon from [facility]. She does not know his name Regular follow-up with me will be in May with a wellness visit at that time and patient was given a requisition to get complete blood work prior to that appointment. We will also help her reschedule her mammogram. Chief Complaint pt is here for4 mon f/u for HTN and cholesterol management. BN//AMD History of Present IllnessPatient is here for routine follow-up on hypertension, cholesterol, insomnia and depression. She is has an appointment next week with an orthopedic surgeon in [place] for her knees and back as she has limited mobility at this time. It is for this reason that she is also requesting a handicap placard. Patient showed up 1 hour late for her mammogram and therefore has to reschedule her appointment I told her that we will be happy to help her reschedule it. Review of Systems Pt denies fever, chills, malaise or headache. Pt denies SOB, cough or VALERIO. Pt denies Chest pains pressures or palpitations. Pt denies Nausea, vomiting, constipation, or diarrhea. Pt denies swelling of hands feet ankles or joints. Patient does have a lot of aches and pains especially in arthritis in her knees lower back and hands. Active Problems Allergic rhinitis (477.9) (J30.9) Cardiac murmur (785.2) (R01.1) Current moderate episode of major depressive disorder (296.22) (F32.1) Full code status (V49.89) (Z78.9) Generalized osteoarthritis of multiple sites (715.09) (M15.9) GERD (gastroesophageal reflux disease) (530.81) (K21.9) History of influenza vaccination (V49.89) (Z92.29) Hypercholesterolemia (272.0) (E78.00) stable as of 06/18/2011 Hyperlipidemia (272.4) (E78.5) Hypertension (401.9) (I10) stable as of 06/18/2011 Inflammatory arthritis (714.9) (M19.90) Insomnia (780.52) (G47.00) Menopause present (627.2) (Z78.0) Need for influenza vaccination (V04.81) (Z23) Osteopenia (733.90) (M85.80) Special screening for other conditions (V82.89) (Z13.89) Visit for screening mammogram (V76.12) (Z12.31) Vitamin D deficiency (268.9) (E55.9) Past Medical History History of Abnormal glucose (790.29) (R73.09) Resolved Date: 12 Oct 2019 History of BMI 25.0-25.9,adult (V85.21) (Z68.25) Resolved Date: 12 Oct 2019 History of BMI 25.0-25.9,adult (V85.21) (Z68.25) Resolved Date: 12 Oct 2019 History of Dietary supplement started Resolved Date: 12 Oct 2019 History of Exposure to SARS-associated coronavirus (V01.82) (Z20.828) Resolved Date: 22 Jun 2021 History of Facial pressure (782.0) (R44.8) Resolved Date: 12 Oct 2019 History of Fall from other slipping, tripping, or stumbling (E885.9) (W01.0XXA) Resolved Date: 12 Jun 2020 History of Fall from other slipping, tripping, or stumbling (E885.9) (W01.0XXA) Resolved Date: 24 Oct 2021 History of Falls frequently (V15.88) (R29.6) Resolved Date: 22 Jun 2021 History of Fluttering heart (427.42) (I49.8) Resolved Date: 12 Oct 2019 History of Food poisoning (005.9) (A05.9) History of acute pharyngitis (V12.69) (Z87.09) Resolved Date: 12 Oct 2019 History o (more content not included)... Normal [facility] PHQ-2 VITALSon 02-06-2022 Adult depression screening assessment No [facility] Work Phone: Office Visiton 10-24-2021 Follow-up visit Diagnoses/Problems Current moderate episode of major depressive disorder (296.22) (F32.1) GERD (gastroesophageal reflux disease) (530.81) (K21.9) Hypertension (401.9) (I10) stable as of 06/18/2011 Hyperlipidemia (272.4) (E78.5) Hypercholesterolemia (272.0) (E78.00) stable as of 06/18/2011 Inflammatory arthritis (714.9) (M19.90) Orders Hypertension Renew: Carvedilol 3.125 MG Oral Tablet; Take 1 tablet twice daily Patient Discussion/Summary f/u Dr dalal in 4months get mammo after 11/07 Provider Impressions 1. Hypertension, blood pressure is stable and well-controlled. Patient was given a refill on her carvedilol 2. Hypercholesterolemia, annual labs were completed in April and she remained stable on simvastatin 20 mg daily 3. Gastroesophageal reflux disease is stable on omeprazole 4. Chronic depression is doing well with paroxetine 20 mg daily 5. Patient is due for mammogram in October was given a requisition today Follow-up with me will be in 4 months and annual labs are due in April Chief Complaint pt is here for 4 mon f/u for HTN and cholesterol management. BN//AMD History of Present IllnessPatient is here for routine 4-month follow-up for her hypertension, osteoarthritis, depression, high cholesterol and medication management. She feels well overall and has no new complaints. Review of Systems Pt denies fever, chills, malaise or headache. Pt denies SOB, cough or VALEROI. Pt denies Chest pains pressures or palpitations. Pt denies Nausea, vomiting, constipation, or diarrhea. Pt denies swelling of hands feet ankles or joints. Active Problems Allergic rhinitis (477.9) (J30.9) Cardiac murmur (785.2) (R01.1) Current moderate episode of major depressive disorder (296.22) (F32.1) Full code status (V49.89) (Z78.9) Generalized osteoarthritis of multiple sites (715.09) (M15.9) GERD (gastroesophageal reflux disease) (530.81) (K21.9) History of influenza vaccination (V49.89) (Z92.29) Hypercholesterolemia (272.0) (E78.00) stable as of 06/18/2011 Hyperlipidemia (272.4) (E78.5) Hypertension (401.9) (I10) stable as of 06/18/2011 Inflammatory arthritis (714.9) (M19.90) Insomnia (780.52) (G47.00) Menopause present (627.2) (Z78.0) Need for influenza vaccination (V04.81) (Z23) Osteopenia (733.90) (M85.80) Special screening for other conditions (V82.89) (Z13.89) Visit for screening mammogram (V76.12) (Z12.31) Vitamin D deficiency (268.9) (E55.9) Past Medical History History of Abnormal glucose (790.29) (R73.09) Resolved Date: 12 Oct 2019 History of BMI 25.0-25.9,adult (V85.21) (Z68.25) Resolved Date: 12 Oct 2019 History of BMI 25.0-25.9,adult (V85.21) (Z68.25) Resolved Date: 12 Oct 2019 History of Dietary supplement started Resolved Date: 12 Oct 2019 History of Exposure to SARS-associated coronavirus (V01.82) (Z20.828) Resolved Date: 22 Jun 2021 History of Facial pressure (782.0) (R44.8) Resolved Date: 12 Oct 2019 History of Fall from other slipping, tripping, or stumbling (E885.9) (W01.0XXA) Resolved Date: 12 Jun 2020 History of Fall from other slipping, tripping, or stumbling (E885.9) (W01.0XXA) History of Falls frequently (V15.88) (R29.6) Resolved Date: 22 Jun 2021 History of Fluttering heart (427.42) (I49.8) Resolved Date: 12 Oct 2019 History of Food poisoning (005.9) (A05.9) History of acute pharyngitis (V12.69) (Z87.09) Resolved Date: 12 Oct 2019 History of constipation (V12.79) (Z87.19) History of cough Resolved Date: 22 Jun 2021 History of depression (V11.8) (Z86.59) History of diverticulitis of colon (V12.79) (Z87.19) Resolved Date: 12 Oct 2019 History of gait disorder (V13.89) (Z87.898) Resolved Date: 22 Jun 2021 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) (Z86.19) genital History of hypertension (V12.59) (Z86.79) History of influenza vaccination (V49.89) (Z92.29) Resolved Date: 22 Jun 2021 History of nasal congestion (V12.69) (Z87.898) Resolved Date: 22 Jun 2021 History of osteopenia (V13.59) (Z87.39) History of palpitations (V12.59) (Z87.898) Resolved Date: 12 Oct 2019 History of sore throat (V12.69) (Z87.09) Resolved Date: 12 Oct 2019 History of viral infection (V12.09) (Z86.19) Resolved Date: 12 Oct 2019 History of Left hip pain (719.45) (M25.552) Resolved Date: 12 Oct 2019 History of Low back pain, unspecified back pain laterality, unspecified chronicity, with sciatica presence unspecified (724.2) (M54.5) Resolved Date: 12 Oct 2019 History of Need for shingles vaccine (V04.89) (Z23) Resolved Date: 22 Jun 2021 History of Osteoporosis screening (V82.81) (Z13.820) Resolved Date: 12 Oct 2019 History of Primary osteoarthritis of right hip (715.15) (M16.11) Resolved Date: 12 Oct 2019 History of Radicular pain of right lower extremity (724.4) (M54.10) Resolved Date: 12 Oct 2019 History of URTI (acute upper respiratory infection) (465.9) (J06.9) Resolved Date: 12 Oct 2019 History of Wrist in (more content not included)... Normal [facility] Medicare Annual Wellness Vis jahaira 06-22-2021 Medicare Annual Wellness Visit *Chief Complaint patient is here for [facility] Annual Wellness Exam. BN Adult Risk Screening There are no spiritual/cultural practices/values/needs that are important to know Initial Fall Risk Screening: LEDY has fallen in the last 6 months. She has fallen due to slipped on ice and fell on steps and hit head. Her fall resulted in the following injury: just hurt head but did not seek medical attention. LEDY has a fear of falling. She does not need assistance with sitting, standing or walking. Does not need assistance walking in her home. She needs assistance in an unfamiliar setting. The patient is not using an assistive device. Pain Scale: On a scale of 0 to 10, the patient rates the pain at 0. Advanced Care Planning discussed and documented advance care plan or surrogate decision maker documented in the medical record. Living Will. Living Will: No living will on file. Healthcare POA: No healthcare proxy on file. Declaration of Mental Health Treatment: No mental health treatment on file. Requested patient bring documents again on next visit. Tobacco Screening: LEDY does not use tobacco. Domestic Violence Screen: Does not feel threatened or abused physically, emotionally or sexually. Do you feel UNSAFE? The patient feels safe in the home. Depression/Suicide Screening: During the past 2 weeks, the patient felt down, depressed or hopeless. PHQ-9 Depression Scale: 1. Little interest or pleasure in doing things - more than half the days 2. Feeling down, depressed or hopeless - several days 3. Trouble falling asleep or sleeping too much - several days 4. Feeling tired or having little energy - more than half the days 5. Poor appetite or overeating - not at all 6. Feeling bad about self or failure or letting others down - several days 7. Trouble concentrating on things - not at all 8. Moving / speaking slowly or fidgety / restless - nearly every day 9. Thought would be better off or hurting self - not at all Total Score: 10/27 Severity of depression is moderate. How difficult have these problems made it for you to do your work, take care of things at home, or get along with people? Somewhat difficult. Single alcohol screening question: In the past year the patient has had 5 or more drinks (men) or 4 or more drinks (women)? 0 time(s). Single substance abuse screening question: In the past year the patient has used a recreational drug or used a prescription drug for non-medical reasons? 0 time(s). Procedure or Sedation Areas: patient has not had alcohol, recreational drugs, or prescription drugs for non-medical reasons this morning. Nutrition Screening: In the past month, there was not a day when I or anyone in my family went hungry because there was not enough food. Patient Education: The patient or the person with them need(s) extra help because of problems with: hearing The patient is comfortable filling out medical forms. Food Insecurity: 1. Within the past 12 months, you worried that your food would run out before you got money to buy more: No 2. Within the past 12 months, the food you bought just didn't last and you didn't have money to get more: No History of Present Illness The patient is being seen for the subsequent annual wellness visit. Past Medical, Surgical and Family History: reviewed and updated in chart. Interval History: Patient has not been hospitalized previously. Medications and Supplements: Review of all medications by a prescribing practitioner or clinical pharmacist (such as prescriptions, OTCs, herbal therapies and supplements) documented in the medical record. No, the patient is not using opioids. Patient Self Assessment of Health Status: good. Tobacco use: Non-User Alcohol use: Non-User Illicit drug use: Non-User Current diet: well balanced diet, does not consume adequate fluids and does consume caffeine. Exercise Frequency: regularly. Depression/Suicide Screening: Patient has a current diagnosis of depression . During the past 2 weeks, the patient felt down, depressed or hopeless. During the past 2 weeks, the patient felt little interest or pleasure in doing things. See screen above Hearing Impairment: Patient has significant hearing impairment, bilaterally, She uses a hearing aid. Cognitive Impairment: No cognitive impairment observed, patient or family reported no cognitive impairment. Bathing: performs independently. Dressing: performs independently. Walking: performs independently. Toileting: performs independently. Feeding: performs independently. Personal Hygiene: performs independently. Bowels: continent. Bladder: occasional accident. Managing Finances: performs independently. Shopping: performs independently. Managing Medications: performs independently. Housework / Basic Home Maintenance: performs independently. Handling Transportation: performs independently. Preparing Meals: performs independently. Using the Tele (more content not included)... Normal [facility] Basophil percentageon 2021 Bilirubin [Mass/Vol] 0.40 mg/dL 0.20-1.00 [facility] Work Phone: Comment on above: For patients on eltr ombopag therapy, use of Dimension [place] TBIL is not recommended. Chloride [Moles/Vol] 104 mmol/L 98-107 [facility] Work Phone: Cholesterol [Mass/Vol] 157 mg/dL <200 [facility] Work Phone: Comment on above: <200 mg/dL Desirable 200-240 mg/dL Borderline >240 mg/dL High Risk Glucose [Mass/Vol] 93 mg/dL 74-106 [facility] Work Phone: Potassium [Moles/Vol] 3.8 mmol/L 3.5-5.1 [facility] Work Phone: Protein [Mass/Vol] 7.4 g/dL 6.4-8.2 [facility] Work Phone: Sodium [Moles/Vol] 140 mmol/L 136-145 [facility] Work Phone: Triglyceride [Mass/Vol] 133 mg/dL [facility] Work Phone: Comment on above: The drugs N-Acetylcy steine and Metamizole may falsely depress this assay.Serum Triglycerides Reference Interval Normal <150 mg/dL Borderline high 150 - 199 mg/dL High 200 - 499 mg/dL Very High > or = 500 mg/dL WBC (Bld) [#/Vol] 6.8 10*3/uL 4.4-11.0 [facility] Work Phone: Blood erythrocytes count (nu mber/volume)on 05-15-2021 RBC (Bld) [#/Vol] 4.41 10*6/uL 4.2-5.4 [facility]: Blood hemoglobin measurement (mass/volume)on 05-15-2021 Hemoglobin (Bld) [Mass/Vol] 13.0 g/dL 12.0-15.0 [facility] Work Phone: Blood platelet mean volumeon 05-15-2021 Platelet mean volume (Bld) [Entitic vol] 9.9 fL 6.2-12.0 [facility] Work Phone: Determination of erythrocyte mean corpuscular volume (MCV)on 05-15-2021 MCV (RBC) [Entitic vol] 86.4 fL 81-99 [facility] Work Phone: Hematocrit Auto (Bld) [Volum e fraction]on 05-15-2021 Hematocrit (Bld) [Volume fraction] 38.1 % 37-47 [facility] Work Phone: Laboratory - Chemistry and C hemistry - challengeon 05-15-2021 ALP [Catalytic activity/Vol] 70 U/L 45-117 [facility] Work Phone: ALT [Catalytic activity/Vol] 16 U/L 13-56 [facility] Work Phone: CO2 [Moles/Vol] 34.0 mmol/L 21.0-32.0 [facility] Work Phone: Globulin (S) [Mass/Vol] 3.6 g/dL 2.2-4.2 [facility] Work Phone: Urea nitrogen/Creatinine [Mass ratio] 29.9 mg/mg 10-20 [facility] Work Phone: Laboratory - Hematology and Cell countson 05-15-2021 Erythrocyte distribution width (RBC) [Entitic vol] 39.9 fL 35.1-43.9 [facility] Work Phone: Erythrocyte distribution width (RBC) [Ratio] 12.6 % 11.6-14.6 [facility] Work Phone: MCH (RBC) [Entitic mass] 29.5 pg 27.0-32.0 [facility] Work Phone: MCHC Auto (RBC) [Mass/Vol]on 05-15-2021 MCHC (RBC) [Mass/Vol] 34.1 g/dL 32-36 [facility] Work Phone: No Panel Informationon 05-15 Estimated GFR (MDRD) Amer 94 mL/min >60 [facility] Work Phone: Comment on above: GFR Calc Estimated GFR (MDRD) Non-Af Amer 78 mL/min >60 [facility] Work Phone: Comment on above: Non- GFR Calc Thyroid Stimulating Hormone (TSH) 1.60 uIU/mL 0.358-3.74 [facility] Work Phone: Vitamin D 25-Hydroxy 65.8 ng/mL [facility] Work Phone: Comment on above: Vitamin D 25(OH) Sta tus Range Deficiency <20 ng/mL (50nmol/L) Insufficiency 20 - 30 ng/mL (50 - 75 nmol/L) Sufficiency 30 - 100 ng/mL (75 - 250 nmol/L) Toxicity >100 ng/mL (>250 nmol/L) Platelets bldon 05-15-2021 Platelets (Bld) [#/Vol] 250 10*3/uL 150-450 [facility] Work Phone: Serum or plasma albumin colette urement (mass/volume)on 05-15-2021 Albumin [Mass/Vol] 3.8 g/dL 3.2-5.0 [facility] Work Phone: Serum or plasma albumin/glob ulin mass ratioon 05-15-2021 Albumin/Globulin [Mass ratio] 1.1 {ratio} 0.9-2.4 [facility] Work Phone: Serum or plasma calcium colette urement (mass/volume)on 05-15-2021 Calcium [Mass/Vol] 8.9 mg/dL 8.5-10.1 [facility] Work Phone: Serum or plasma cholesterol in HDL measurement (mass/volume)on 05-15-2021 Cholesterol in HDL [Mass/Vol] 64 mg/dL [facility] Work Phone: Comment on above: The drugs N-Acetylcy steine and Metamizole may falsely depress this assay. Reference Range HDL <40 mg/dL Low HDL Cholesterol HDL >or= 60 mg/dL High HDL Cholesterol Serum or plasma cholesterol in VLDL measurement (mass/volume)on 05-15-2021 Cholesterol in VLDL [Mass/Vol] 27 mg/dL 5-40 [facility] Work Phone: Serum or plasma creatinine m easurement (mass/volume)on 05-15-2021 Creatinine [Mass/Vol] 0.77 mg/dL 0.55-1.02 [facility] Work Phone: Comment on above: The validity of the calculated GFR & GFRAA in patients over 70 years has not been determined. Clinical correlation is essential. Serum or plasma low density lipoprotein (LDL) cholesterol measurement (mass/volume)on 05-15-2021 Cholesterol in LDL [Mass/Vol] 66 mg/dL 0-130 [facility] Work Phone: Serum or plasma urea nitroge n measurement (mass/volume)on 05-15-2021 Urea nitrogen [Mass/Vol] 23 mg/dL 7-18 [facility] Work Phone: Thin prep Papanicolaou smear with manual screeningon 05-15-2021 Thin prep Papanicolaou smear with manual screening 19 U/L 15-37 [facility] Work Phone: Thin prep Papanicolaou smear with manual screening 2 5-15 [facility] Work Phone: Mamm - Screening Mammogram w / Tomosynthesison 11-06-2020 MG Breast Screening Normal [facility] Work Phone: Xray Bone Density, Dexa 1 or More Siteson 11-06-2020 Xray Bone Density, Dexa 1 or More Sites Normal [facility] Work [facility]: Tobacco Screening.on 021 Fall risk assessment b) One or more fall s in the last year [facility]: Tobacco use status [facility] b) No [facility] Work Phone: Otheron 07-27-2018 Please click on the link to view the study images Normal [facility] Work Phone: Vital Signs Date Time Vital Sign Value Performing Clinician Facility 09-16-2024 21:00-0400 Body temperature 97.8 [degF] Gerry Escalante MD Work Phone: [facility] 09-16-2024 21:00-0400 Diastolic blood pressure 71 mm[Hg] Gerry Escalante MD Work Phone: [phone] [place] [address] 09-16-2024 21:00-0400 Heart rate 97 /min Gerry Escalante MD Work Phone: [phone] [place] [address] 09-16-2024 21:00-0400 Respiratory rate 18 /min Gerry Escalante MD Work Phone: [facility] 09-16-2024 21:00-0400 SaO2% (BldA) [Mass fraction] 99 % Gerry Escalante MD Work Phone: [facility] 09-16-2024 21:00-0400 Systolic blood pressure 130 mm[Hg] Gerry Escalante MD Work Phone: [facility] 09-16-2024 17:44-0400 Body height 167.64 cm Gerry Escalante MD Work Phone: [phone] [place] [address] 09-16-2024 17:44-0400 Body mass index (BMI) [Ratio] 24.3 kg/m2 Gerry Escalante MD Work Phone: [phone] [place] [address] 09-16-2024 17:44-0400 Body weight 68.2 kg Gerry Escalante MD Work Phone: [facility] 09-11-2024 10:12-0400 Diastolic blood pressure 82 mm[Hg] Rachel Frazier MD Work Phone: [facility] 09-11-2024 10:12-0400 Systolic blood pressure 134 mm[Hg] Rachel Frazier MD Work Phone: [facility] 09-11-2024 10:06-0400 Body height 158.8 cm Rachel Frazier MD Work Phone: [facility] 09-11-2024 10:06-0400 Body mass index (BMI) [Ratio] 26.39 kg/m2 Rachel Frazier MD Work Phone: [facility] 09-11-2024 10:06-0400 Body weight 66.5 kg Rachel Frazier MD Work Phone: [facility] 09-11-2024 10:06-0400 Heart rate 71 /min Rachel Frazier MD Work Phone: [facility] 09-11-2024 10:06-0400 Respiratory rate 12 /min Rachel Frazier MD Work Phone: [facility] 09-11-2024 10:06-0400 SaO2% (BldA) [Mass fraction] 94 % Rachel Frazier MD Work Phone: [facility] 08-23-2024 11:28-0400 Diastolic blood pressure 70 mm[Hg] Saima Mendoza MD Work Phone: [facility] 08-23-2024 11:28-0400 Systolic blood pressure 126 mm[Hg] Saima Mendoza MD Work Phone: [facility] 08-23-2024 10:54-0400 Body height 165.1 cm Saima Mendoza MD Work Phone: [facility] 08-23-2024 10:54-0400 Body mass index (BMI) [Ratio] 24.4 kg/m2 Saima Mendoza MD Work Phone: [facility] 08-23-2024 10:54-0400 Body weight 66.5 kg Saima Mendoza MD Work Phone: [facility] 08-23-2024 10:54-0400 Heart rate 58 /min Saima Mendoza MD Work Phone: [facility] 08-23-2024 10:54-0400 SaO2% (BldA) [Mass fraction] 93 % Saima Mendoza MD Work Phone: [facility] 04-06-2024 09:57-0500 Body height 165.1 cm Saima Mendoza MD Work Phone: [facility] 04-06-2024 09:57-0500 Body mass index (BMI) [Ratio] 24.3 kg/m2 Saima Mendoza MD Work Phone: [facility] 04-06-2024 09:57-0500 Body weight 66.22 kg Saima Mendoza MD Work Phone: [facility] 04-06-2024 09:57-0500 Diastolic blood pressure 72 mm[Hg] Saima Mendoza MD Work Phone: [facility] 04-06-2024 09:57-0500 Heart rate 53 /min Saima Mendoza MD Work Phone: [facility] 04-06-2024 09:57-0500 SaO2% (BldA) [Mass fraction] 93 % Saima Mendoza MD Work Phone: [facility] 04-06-2024 09:57-0500 Systolic blood pressure 122 mm[Hg] aSima Mendoza MD Work Phone: [facility] 11-17-2023 13:04-0400 Diastolic blood pressure 74 mm[Hg] Saima Mendoza MD Work Phone: [facility] 11-17-2023 13:04-0400 Systolic blood pressure 128 mm[Hg] Saima Mendoza MD Work Phone: [facility] 11-17-2023 09:01-0400 Body height 165.1 cm Saima Mendoza MD Work Phone: [facility] 11-17-2023 09:01-0400 Body mass index (BMI) [Ratio] 24.6 kg/m2 Saima Mendoza MD Work Phone: [facility] 11-17-2023 09:01-0400 Body weight 67.04 kg Saima Mendoza MD Work Phone: [facility] Comment on above: with hard cast on left leg 11-17-2023 09:01-0400 Heart rate 60 /min Saima Mendoza MD Work Phone: [facility] 11-17-2023 09:01-0400 SaO2% (BldA) [Mass fraction] 92 % Saima Mendoza MD Work Phone: [facility] 10-08-2023 11:21-0400 Diastolic blood pressure 62 mm[Hg] Pacc 1 Work Phone: [facility] 10-08-2023 11:21-0400 Systolic blood pressure 118 mm[Hg] Pacc 1 Work Phone: [facility] 10-08-2023 11:20-0400 Body height 170.2 cm Pacc 1 Work Phone: [facility] 10-08-2023 11:20-0400 Body mass index (BMI) [Ratio] 23.02 kg/m2 Pacc 1 Work Phone: [facility] 10-08-2023 11:20-0400 Body weight 66.68 kg Pacc 1 Work Phone: [facility] 10-08-2023 11:20-0400 Heart rate 58 /min Pacc 1 Work Phone: [facility] 10-08-2023 11:20-0400 Respiratory rate 20 /min Pacc 1 Work Phone: [facility] 10-08-2023 11:20-0400 SaO2% (BldA) [Mass fraction] 96 % Pac 1 Work Phone: [facility] 08-21-2023 15:29-0400 Body temperature 98.6 [degF] DR MERCEDES LOCK MD [facility] 08-21-2023 15:29-0400 Diastolic Blood Pressure Non-Invasive 75 mm[Hg] DR MERCEDES LOCK MD [facility] 08-21-2023 15:29-0400 Heart rate 70 /min DR MERCEDES LOCK MD [facility] 08-21-2023 15:29-0400 Respiratory rate 18 /min DR MERCEDES LOCK MD [facility] 08-21-2023 15:29-0400 Systolic Blood Pressure Non-Invasive 161 mm[Hg] DR MERCEDES LOCK MD [facility] 08-21-2023 11:35-0400 Body temperature 98.42 [degF] DR MERCEDES LOCK MD [facility] 08-21-2023 11:35-0400 Diastolic Blood Pressure Non-Invasive 62 mm[Hg] DR MERCEDES LOCK MD [facility] 08-21-2023 11:35-0400 Heart rate 55 /min DR MERCEDES LOCK MD [facility] 08-21-2023 11:35-0400 Respiratory rate 18 /min DR MERCEDES LOCK MD [facility] 08-21-2023 11:35-0400 Systolic Blood Pressure Non-Invasive 134 mm[Hg] DR MERCEDES LOCK MD [facility] 08-21-2023 06:40-0400 Body temperature 98.06 [degF] DR MERCEDES LOCK MD [facility] 08-21-2023 06:40-0400 Diastolic Blood Pressure Non-Invasive 74 mm[Hg] DR MERCEDES LOCK MD [facility] 08-21-2023 06:40-0400 Heart rate 62 /min DR MERCEDES LOCK MD [facility] 08-21-2023 06:40-0400 Respiratory rate 18 /min DR MERCEDES LOCK MD [facility] 08-21-2023 06:40-0400 Systolic Blood Pressure Non-Invasive 170 mm[Hg] DR MERCEDES LOCK MD [facility] 08-21-2023 03:27-0400 Heart rate 68 /min DR MERCEDES LOCK MD [facility] 08-20-2023 18:48-0400 Heart rate 59 /min DR MERCEDES LOCK MD [facility] 08-19-2023 22:59-0400 Heart rate 73 /min DR MERCEDES LOCK MD [facility] 08-19-2023 19:53-0400 Heart rate 64 /min DR MERCEDES LOCK MD [facility] 08-19-2023 16:48-0400 Body height 165.[address] MERCEDES LOCK MD [facility] 08-19-2023 16:48-0400 Body weight 68.[address] MERCEDES LOCK MD [facility] 08-19-2023 16:48-0400 Body weight 25.02 kg/m2 DR MERCEDES LOCK MD [facility] 08-19-2023 16:10-0400 Heart rate 52 /min DR MERCEDES LOCK MD [facility] 08-19-2023 15:55-0400 Heart rate 56 /min DR MERCEDES LOCK MD [facility] 08-19-2023 15:40-0400 Body temperature 97.34 [degF] DR MERCEDES LOCK MD [facility] 08-19-2023 15:35-0400 Respiratory Rate - Anes 0 br/min DR MERCEDES LOCK MD [facility] 08-19-2023 15:30-0400 Respiratory Rate - Anes 15 br/min DR MERCEDES LOCK MD [facility] 08-19-2023 15:25-0400 Respiratory Rate - Anes 14 br/min DR MERCEDES LOCK MD [facility] 08-19-2023 11:36-0400 Body height 165.[address] MERCEDES LOCK MD [facility] 08-19-2023 11:36-0400 Body temperature 99.32 [degF] DR MERCEDES LOCK MD [facility] 08-19-2023 11:36-0400 Body weight 68.[address] MERCEDES LOCK MD [facility] 06-24-2023 11:40-0400 Diastolic blood pressure 62 mm[Hg] Saima Mendoza MD Work Phone: [facility] 06-24-2023 11:40-0400 Systolic blood pressure 128 mm[Hg] Saima Mendoza MD Work Phone: [facility] 06-24-2023 10:54-0400 Body height 165.1 cm Saima Mendoza MD Work Phone: [facility] 06-24-2023 10:54-0400 Body mass index (BMI) [Ratio] 25.99 kg/m2 Saima Mendoza MD Work Phone: [facility] 06-24-2023 10:54-0400 Body weight 70.85 kg Saima Mendoza MD Work Phone: [facility] 06-24-2023 10:54-0400 Heart rate 52 /min Saima Mendoza MD Work Phone: [facility] 06-24-2023 10:54-0400 SaO2% (BldA) [Mass fraction] 93 % Saima Mendoza MD Work Phone: [facility] 04-28-2023 11:34-0500 Body height 165.1 cm Saima Mendoza MD Work Phone: [facility] 04-28-2023 11:34-0500 Body mass index (BMI) [Ratio] 26.63 kg/m2 Saima Mendoza MD Work Phone: [facility] 04-28-2023 11:34-0500 Body weight 72.58 kg Saima Mendoza MD Work Phone: [facility] 04-28-2023 11:34-0500 Diastolic blood pressure 66 mm[Hg] Saima Mendoza MD Work Phone: [facility] 04-28-2023 11:34-0500 Heart rate 50 /min Saima Mendoza MD Work Phone: [facility] 04-28-2023 11:34-0500 SaO2% (BldA) [Mass fraction] 95 % Saima Mendoza MD Work Phone: [facility] 04-28-2023 11:34-0500 Systolic blood pressure 123 mm[Hg] Saima Mendoza MD Work Phone: [facility] 02-28-2023 11:38-0500 Diastolic blood pressure 64 mm[Hg] Saima Mendoza MD Work Phone: [facility] 02-28-2023 11:38-0500 Systolic blood pressure 128 mm[Hg] Saima Mendoza MD Work Phone: [facility] 02-28-2023 11:21-0500 Body height 165.1 cm Saima Mendoza MD Work Phone: [facility] 02-28-2023 11:21-0500 Body mass index (BMI) [Ratio] 26.56 kg/m2 Saima Mendoza MD Work Phone: [facility] 02-28-2023 11:21-0500 Body weight 72.39 kg Saima Mendoza MD Work Phone: [facility] 02-28-2023 11:21-0500 Heart rate 49 /min Saima Mendoza MD Work Phone: [facility] 10-24-2022 11:25-0400 Diastolic blood pressure 70 mm[Hg] Saima Mendoza MD Work Phone: [facility] 10-24-2022 11:25-0400 Systolic blood pressure 124 mm[Hg] Saima Mendoza MD Work Phone: [facility] 10-24-2022 11:14-0400 Body height 166.4 cm Saima Mendoza MD Work Phone: [facility] Comment on above: with shoes 10-24-2022 11:14-0400 Body mass index (BMI) [Ratio] 26.52 kg/m2 Saima Mendoza MD Work Phone: [facility] 10-24-2022 11:14-0400 Body weight 73.39 kg Saima Mendoza MD Work Phone: [facility] 10-24-2022 11:14-0400 Heart rate 51 /min Saima Mendoza MD Work Phone: [facility] 10-24-2022 11:14-0400 SaO2% (BldA) [Mass fraction] 95 % Saima Mendoza MD Work Phone: [facility] 06-20-2022 11:47-0400 Diastolic blood pressure 76 mm[Hg] Saima Mendoza MD Work Phone: [facility] 06-20-2022 11:47-0400 Systolic blood pressure 128 mm[Hg] Saima Mendoza MD Work Phone: [facility] 06-20-2022 11:12-0400 Body height 166.4 cm Saima Mendoza MD Work Phone: [facility] 06-20-2022 11:12-0400 Body mass index (BMI) [Ratio] 26.55 kg/m2 Saima Mendoza MD Work Phone: [facility] 06-20-2022 11:12-0400 Body weight 73.48 kg Saima Mendoza MD Work Phone: [facility] 06-20-2022 11:12-0400 Heart rate 57 /min Saima Mendoza MD Work Phone: [facility] 06-20-2022 11:12-0400 SaO2% (BldA) [Mass fraction] 96 % Saima Mendoza MD Work Phone: [facility] 04-25-2022 14:51-0500 Body height 172.7 cm Stevie Mccarty MD, PhD Work Phone: [facility] 04-25-2022 14:51-0500 Body weight 72.58 kg Stevie Mccarty MD, PhD Work Phone: [facility] 04-25-2022 14:51-0500 Diastolic blood pressure 82 mm[Hg] Stevie Mccarty MD, PhD Work Phone: [facility] 04-25-2022 14:51-0500 Heart rate 59 /min Stevie Mccarty MD, PhD Work Phone: [facility] 04-25-2022 14:51-0500 Respiratory rate 16 /min Stevie Mccarty MD, PhD Work Phone: [facility] 04-25-2022 14:51-0500 SaO2% (BldA) [Mass fraction] 97 % Stevie Mccarty MD, PhD Work Phone: [facility] 04-25-2022 14:51-0500 Systolic blood pressure 142 mm[Hg] Stevie Mccarty MD, PhD Work Phone: [facility] 04-17-2022 22:03-0500 Heart rate 84 /min [facility] 04-17-2022 22:03-0500 Respiratory rate 18 /min [facility] 04-17-2022 22:03-0500 SaO2% (BldA) [Mass fraction] 92 % [facility] 04-17-2022 21:00-0500 Diastolic blood pressure 97 mm[Hg] [facility] 04-17-2022 21:00-0500 Inhaled oxygen flow rate 3 L/min [facility] 04-17-2022 21:00-0500 Systolic blood pressure 132 mm[Hg] [facility] 04-17-2022 18:24-0500 Body height 172.72 cm [facility] 04-17-2022 18:24-0500 Body mass index (BMI) [Ratio] 24.6 kg/m2 [facility] 04-17-2022 18:24-0500 Body temperature 97 [degF] [facility] 04-17-2022 18:24-0500 Body weight 73.61 kg [facility] 02-06-2022 11:44-0500 Diastolic blood pressure 78 mm[Hg] Saima Mendoza Work Phone: [facility] Work Phone: 02-06-2022 11:44-0500 Systolic blood pressure 130 mm[Hg] Saima Mendoza Work Phone: [facility] Work Phone: 02-06-2022 11:02-0500 Body mass index (BMI) [Ratio] 27.38 kg/m2 Saima Mendoza Work Phone: [facility] Work Phone: 02-06-2022 11:02-0500 Body surface area Derived from formula 1.82 m2 Saima Mendoza Work Phone: [facility] Work Phone: 02-06-2022 11:02-0500 Body weight 74.64 kg Saima Mendoza Work Phone: [facility] Work Phone: 02-06-2022 11:02-0500 Diastolic blood pressure 82 mm[Hg] Saima Mendoza Work Phone: [facility] Work Phone: 02-06-2022 11:02-0500 Heart rate 54 /min Saima Mendoza Work Phone: [facility] Work Phone: 02-06-2022 11:02-0500 SaO2% (BldA) [Mass fraction] 96 % Saima Mendoza Work Phone: [facility] Work Phone: 02-06-2022 11:02-0500 Systolic blood pressure 142 mm[Hg] Saima Mendoza Work Phone: [facility] Work Phone: 10-24-2021 11:07-0400 Body mass index (BMI) [Ratio] 26.66 kg/m2 Saima Mendoza Work Phone: [facility] Work Phone: 10-24-2021 11:07-0400 Body surface area Derived from formula 1.8 m2 Saima Mendoza Work Phone: [facility] Work Phone: 10-24-2021 11:07-0400 Body weight 72.66 kg Saima Mendoza Work Phone: [facility] Work Phone: 10-24-2021 11:07-0400 Diastolic blood pressure 61 mm[Hg] Saima Mendoza Work Phone: [facility] Work Phone: 10-24-2021 11:07-0400 Heart rate 49 /min Saima Mendoza Work Phone: [facility] Work Phone: 10-24-2021 11:07-0400 SaO2% (BldA) [Mass fraction] 98 % Saima Mendoza Work Phone: [facility] Work Phone: 10-24-2021 11:07-0400 Systolic blood pressure 127 mm[Hg] Saima Mendoza Work Phone: [facility] Work Phone: 06-22-2021 12:46-0400 Diastolic blood pressure 74 mm[Hg] Saima Mendoza Work Phone: [facility] Work Phone: 06-22-2021 12:46-0400 Systolic blood pressure 128 mm[Hg] Saima Mendoza Work Phone: [facility] Work Phone: 06-22-2021 11:44-0400 Body mass index (BMI) [Ratio] 26.37 kg/m2 Saima Mendoza Work Phone: [facility] Work Phone: 06-22-2021 11:44-0400 Body surface area Derived from formula 1.79 m2 Saima Mendoza Work Phone: [facility] Work Phone: 06-22-2021 11:44-0400 Body weight 71.87 kg Saima Mendoza Work Phone: [facility] Work Phone: 06-22-2021 11:44-0400 Diastolic blood pressure 76 mm[Hg] Saima Mendoza Work Phone: [facility] Work Phone: 06-22-2021 11:44-0400 Heart rate 51 /min Saima Mendoza Work Phone: [facility] Work Phone: 06-22-2021 11:44-0400 Systolic blood pressure 133 mm[Hg] Saima Mendoza Work Phone: [facility] Work Phone: 02-05-2021 11:31-0500 Body height 165.1 cm Saima Mendoza Work Phone: [facility] Work Phone: 02-05-2021 11:31-0500 Body mass index (BMI) [Ratio] 26.46 kg/m2 Saima Mendoza Work Phone: [facility] Work Phone: 02-05-2021 11:31-0500 Body surface area Derived from formula 1.79 m2 Saima Mendoza Work Phone: [facility] Work Phone: 02-05-2021 11:31-0500 Body weight 72.12 kg Saima Mendoza Work Phone: [facility] Work Phone: 02-05-2021 11:31-0500 Diastolic blood pressure 68 mm[Hg] Saima Mendoza Work Phone: [facility] Work Phone: 02-05-2021 11:31-0500 Heart rate 49 /min Saima Mendoza Work Phone: [facility] Work Phone: 02-05-2021 11:31-0500 Respiratory rate 16 /min Saima Mendoza Work Phone: [facility] Work Phone: 02-05-2021 11:31-0500 Systolic blood pressure 128 mm[Hg] Saima Mendoza Work Phone: [facility] Work Phone: 02-05-2021 11:11-0500 Body height 165.1 cm Saima Mendoza Work Phone: [facility] Work Phone: 02-05-2021 11:11-0500 Body mass index (BMI) [Ratio] 26.46 kg/m2 Saima Mendoza Work Phone: [facility] Work Phone: 02-05-2021 11:11-0500 Body surface area Derived from formula 1.79 m2 Saima Mendoza Work Phone: [facility] Work Phone: 02-05-2021 11:11-0500 Body weight 72.12 kg Saima Mendoza Work Phone: [facility] Work Phone: 02-05-2021 11:11-0500 Diastolic blood pressure 68 mm[Hg] Saima Mendoza Work Phone: [facility] Work Phone: 02-05-2021 11:11-0500 Heart rate 49 /min Saima Mendoza Work Phone: [facility] Work Phone: 02-05-2021 11:11-0500 Systolic blood pressure 145 mm[Hg] Saima Mendoza Work Phone: [facility] Work Phone: 10-16-2020 11:10-0400 Body height 165.1 cm Saima Mendoza Work Phone: [facility] Work Phone: 10-16-2020 11:10-0400 Body mass index (BMI) [Ratio] 26.46 kg/m2 Saima Mendoza Work Phone: [facility] Work Phone: 10-16-2020 11:10-0400 Body surface area Derived from formula 1.79 m2 Saima Mendoza Work Phone: [facility] Work Phone: 10-16-2020 11:10-0400 Body weight 72.12 kg Saima Mendoza Work Phone: [facility] Work Phone: 10-16-2020 11:10-0400 Diastolic blood pressure 66 mm[Hg] Saima Mendoza Work Phone: [facility] Work Phone: 10-16-2020 11:10-0400 Heart rate 52 /min Saima Mendoza Work Phone: [facility] Work Phone: 10-16-2020 11:10-0400 Systolic blood pressure 118 mm[Hg] Saima Mendoza Work Phone: [facility] Work Phone: 06-12-2020 13:24-0400 Diastolic blood pressure 68 mm[Hg] Saima Mendoza MD [facility] Work Phone: 06-12-2020 13:24-0400 Systolic blood pressure 124 mm[Hg] [facility] Work [facility]: 06-12-2020 13:09-0400 Body height 165.1 cm [facility]endoza [facility] Work Phone: 06-12-2020 13:09-0400 Body mass index (BMI) [Ratio] 25.58 kg/m2 [facility]a [facility]endoza [facility] Work Phone: 06-12-2020 13:09-0400 Body surface area Derived from formula 1.77 m2 [facility]a [facility]endoza [facility] Work Phone: 06-12-2020 13:09-0400 Body weight 69.72 kg [facility]a [facility]endoza [facility] Work [facility]: 06-12-2020 13:09-0400 Diastolic blood pressure 78 mm[Hg] [facility]za [facility] Work [facility]: 06-12-2020 13:09-0400 Heart rate 52 /min [facility]endoza [facility] Work [facility]: 06-12-2020 13:09-0400 Systolic blood pressure 139 mm[Hg] [facility] Work Phone: 02-08-2020 13:23-0500 BP Diastolic 70 mm[Hg] [facility]endo[facility] Work Phone: 02-08-2020 13:23-0500 BP Systolic 124 mm[Hg] [facility] Work Phone: 02-08-2020 13:11-0500 BMI (Body Mass Index) 24.08 kg/m2 [facility]endoza [facility] Work Phone: 02-08-2020 13:11-0500 Body weight 67.67 kg [facility]endoza [facility] Work Phone: 02-08-2020 13:11-0500 BP Diastolic 72 mm[Hg] Saima Ciales [facility] Work Phone: 02-08-2020 13:11-0500 BP Systolic 142 mm[Hg] Saima Kelly [facility] Work Phone: 02-08-2020 13:11-0500 BSA (Body Surface Area) 1.77 m2 Saima Kelly [facility] Work Phone: 02-08-2020 13:11-0500 Pulse (Heart Rate) 54 /min Saima Ciales [facility] Work Phone: 05-18-2019 12:04-0400 BMI (Body Mass Index) 26.88 kg/m2 Saima Ciales [facility] Work Phone: 05-18-2019 12:04-0400 Body Temperature 98.1 [degF] Saima Ciales [facility] Work Phone: 05-18-2019 12:04-0400 Body weight 75.55 kg Saima Ciales [facility] Work Phone: 05-18-2019 12:04-0400 BP Diastolic 80 mm[Hg] Saima Ciales [facility] Work Phone: 05-18-2019 12:04-0400 BP Systolic 126 mm[Hg] Saima Ciales [facility] Work Phone: 05-18-2019 12:04-0400 BSA (Body Surface Area) 1.85 m2 Saima Ciales [facility] Work Phone: 05-18-2019 12:04-0400 Pulse (Heart Rate) 64 /min Saima Ciales [facility] Work Phone: 07-23-2018 13:03-0400 BMI (Body Mass Index) 25.5 kg/m2 Saima Ciales [facility] Work Phone: 07-23-2018 13:03-0400 Body weight 71.67 kg [facility]iales [facility] Work Phone: 07-23-2018 13:03-0400 BP Diastolic 70 mm[Hg] [facility]endoza [facility] Work Phone: 07-23-2018 13:03-0400 BP Systolic 124 mm[Hg] [facility] Work Phone: 07-23-2018 13:03-0400 BSA (Body Surface Area) 1.81 m2 [facility]endoza [facility] Work Phone: 07-23-2018 13:03-0400 Height 167.64 cm [facility]endo[facility] Work Phone: 07-23-2018 13:03-0400 Pulse (Heart Rate) 60 /min [facility]endoza [facility] Work Phone: Encounters Encounter Date Encounter Type Care Provider Facility Start: 09-16-2024 Evaluation and manag ement of inpatient Dr. Natali Barnes MD [facility] Work Phone: Start: 09-11-2024 ambulatory RACHEL FRAZIER Facility:[facility] Start: 09-11-2024 End: 09-11-2024 Subsequent hospital visit by physician Janice [facility] Work Phone: Radiology Comment on above: Chronic right should er pain [M25.511, G89.29] Start: 09-11-2024 End: 09-11-2024 Office outpatient new 30 minutes Rachel Frazier MD Work Phone: [facility] Comment on above: Annual physical exam (Primary Dx); Encounter for screening examination for other mental health and behavioral disorders; Encounter for immunization; Encounter for health-related screening; Chronic right shoulder pain; Knee locking, left; Primary hypertension Start: 09-11-2024 End: 09-11-2024 ambulatory RACHEL FRAZIER Facility:[facility] Start: 09-11-2024 End: 09-11-2024 Patient encounter procedure Rachel Frazier MD Work Phone: [facility] Start: 08-23-2024 End: 08-23-2024 ambulatory [facility] Start: 08-23-2024 End: 08-23-2024 Patient encounter procedure Saima Mendoza MD Work Phone: [facility] Comment on above: Asymptomatic menopau nirmal state (Primary Dx); Full code status; Primary hypertension; Mixed hyperlipidemia; Hypercholesterolemia; Gastroesophageal reflux disease without esophagitis; Wellness examination; ACP (advance care planning); Current moderate episode of major depressive disorder without prior episode (Multi); Primary insomnia; Cardiac risk counseling Start: 08-23-2024 End: 08-23-2024 Patient encounter status Saima Mendoza MD Work Phone: [facility] Work Phone: Start: 04-06-2024 End: 04-06-2024 Office outpatient visit 25 minutes Saima Mendoza MD Work Phone: [facility] Comment on above: Primary hypertension (Primary Dx); Mixed hyperlipidemia; Hypercholesterolemia; Gastroesophageal reflux disease without esophagitis; Vitamin D deficiency; Current moderate episode of major depressive disorder without prior episode (Multi) Start: 04-06-2024 End: 04-06-2024 ambulatory [facility] Start: 02-10-2024 ambulatory [facility] Facility :[id number] Start: 02-10-2024 End: 02-10-2024 Subsequent hospital visit by physician Anam Moreno 3 [facility] Comment on above: Leg edema [R60.0] Start: 12-11-2023 End: 12-11-2023 Subsequent hospital visit by physician Alka Thornton Cr Nonv1 Holter/Ecg Resource [facility] Comment on above: Pulse irregularity Start: 12-11-2023 End: 12-11-2023 ambulatory [facility] Start: 11-17-2023 End: 11-17-2023 Office outpatient visit 25 minutes Saima Mendoza MD Work Phone: [facility] Comment on above: Acute cystitis witho ut hematuria (Primary Dx); Flu vaccine need; Primary hypertension; Mixed hyperlipidemia; Hypercholesterolemia; Gastroesophageal reflux disease without esophagitis; Current moderate episode of major depressive disorder without prior episode (Multi) Start: 11-17-2023 End: 11-17-2023 ambulatory [facility] Start: 10-28-2023 ambulatory Adama DIAZ Facili ty:[facility] Start: 10-20-2023 ambulatory Mariela DIAZ Facili ty:[facility] Start: 10-15-2023 End: 10-18-2023 Evaluation and management of inpatient GUILLE PEREZ Facility:[id number] Start: 10-13-2023 End: 10-16-2023 Patient encounter status Anam 3 [facility] Start: 10-08-2023 End: 10-08-2023 ambulatory SAIMA M KELLY Facility:[id number] Start: 10-08-2023 Encounter for other preprocedural examination [facility] Start: 10-08-2023 End: 10-08-2023 Office outpatient new 30 minutes [facility] 1 Work Phone: Pre Anesthesia Comment on above: Preop testing (Prima ry Dx); Hypertension, unspecified type; Arthritis; Left knee pain, unspecified chronicity Start: 10-08-2023 End: 10-08-2023 Patient encounter status Pacc 1 Work Phone: [facility] Work Phone: Start: 09-30-2023 End: 09-30-2023 ambulatory [facility] Start: 09-30-2023 End: 09-30-2023 Encounter for general adult medical examination without abnormal findings [facility] Start: 09-22-2023 ambulatory Adama Rubio OLS Facili ty:[facility] Start: 09-15-2023 ambulatory Adama Rubio OLS Facili ty:[facility] Start: 09-08-2023 ambulatory Aadma Jacobi ty:[facility] Start: 09-01-2023 ambulatory Saima Ciales Facility:[facility] Start: 08-25-2023 ambulatory Adama DIAZ Facili ty:[facility] Start: 08-19-2023 End: 08-21-2023 Emergency department patient visit DR SAIMA MENDOZA MD Facility:B Start: 08-19-2023 End: 08-21-[address] MERCEDES LOCK MD [facility] Start: 08-14-2023 End: 08-14-[address] SAIMA MNEDOZA MD Facility:[facility] Start: 06-24-2023 Encounter for other preprocedural examination SAIMA MENDOZA [facility] Start: 06-24-2023 End: 06-24-2023 Assay of hemosiderin, quant Saima Mendoza MD Work Phone: [facility] Work Phone: Start: 06-24-2023 End: 06-24-2023 Patient encounter procedure Saima Mendoza MD Work Phone: [facility] Comment on above: Routine general medi elias examination at health care facility (Primary Dx); Screening mammogram for breast cancer; Primary hypertension; Full code status; Hypercholesterolemia; Mixed hyperlipidemia; Vitamin D deficiency; Gastroesophageal reflux disease without esophagitis; Screening for multiple conditions; Wellness examination; Current moderate episode of major depressive disorder without prior episode (Multi); Generalized osteoarthritis of multiple sites; Cardiac risk counseling Start: 06-24-2023 End: 06-24-2023 Patient encounter status Saima Mendoza MD Work Phone: [facility] Work Phone: Start: 06-23-2023 End: 06-23-2023 ambulatory SAIMA MENDOZA [facility] Start: 06-23-2023 End: 06-23-2023 Encounter for other preprocedural examination SAIMA MENDOZA [facility] Start: 05-06-2023 Encounter for other preprocedural examination Mercedes Lock [facility] Start: 05-01-2023 End: 05-01-[address] Saima Mendoza Work Phone: [facility] Work Phone: Start: 05-01-2023 End: 05-01-[address] Saima Mendoza Work Phone: [facility] Work Phone: Start: 05-01-2023 End: 05-01-2023 ambulatory [facility] Facility:[facility] Start: 04-28-2023 End: 04-28-2023 Office outpatient visit 25 minutes Saima Mendoza MD Work Phone: [facility] Comment on above: Preop examination (P rimary Dx); Total knee replacement status, left; Primary hypertension; Hypercholesterolemia; Mixed hyperlipidemia; Primary osteoarthritis of left knee Start: 04-28-2023 End: 06-24-2023 Preprocedural examination done Saima Mendoza MD Work Phone: [facility] Work Phone: Start: 04-18-2023 End: 04-18-2023 Non-patient / Non-visit Dr. Saima Mendoza Work Phone: [facility] Work Phone: Start: 04-18-2023 End: 04-18-[address] Saima Mendoza Work Phone: [facility] Work Phone: Start: 04-18-2023 End: 04-18-[address] Saima Mendoza Work Phone: [facility] Work Phone: Start: 04-18-2023 End: 04-18-2023 ambulatory Mercedes [facility] Facility:[facility] Start: 02-28-2023 End: 02-28-2023 Office outpatient visit 25 minutes Saima Mendoza MD Work Phone: [facility] Comment on above: Primary hypertension (Primary Dx); Current moderate episode of major depressive disorder, unspecified whether recurrent (CMS/HCC); Inflammatory arthritis; Mixed hyperlipidemia; Gastroesophageal reflux disease without esophagitis; Generalized osteoarthritis of multiple sites; Vitamin D deficiency; Gait disorder; Needs flu shot; Hypercholesterolemia Start: 10-24-2022 End: 10-24-2022 Office outpatient visit 25 minutes Saima Mendoza MD Work Phone: [facility] Comment on above: Asymptomatic menopau nirmal state (Primary Dx); Current moderate episode of major depressive disorder, unspecified whether recurrent (CMS/HCC); Secondary hypertension; Generalized osteoarthritis of multiple sites; Hypercholesterolemia; Mixed hyperlipidemia; Gastroesophageal reflux disease without esophagitis; Primary insomnia Start: 08-23-2022 Telephone encounter Stevie silva MD, PhD Work Phone: [facility] Comment on above: Missed Appointment Start: 06-24-2022 End: 06-24-2022 ambulatory Elijah Nguyen PT Work Phone: [facility] Comment on above: Fall, sequela (Prima ry Dx) Start: 06-20-2022 End: 06-20-2022 Assay of hemosiderin, quant Saima Mendoza MD Work Phone: [facility] Work Phone: Start: 06-20-2022 End: 06-20-2022 Patient encounter procedure Saima Mendoza MD Work Phone: [facility] Comment on above: Routine general medi elias examination at health care facility (Primary Dx); Primary hypertension; Moderate mixed hyperlipidemia not requiring statin therapy; Gastroesophageal reflux disease without esophagitis; Hypercholesterolemia; Current moderate episode of major depressive disorder without prior episode (CMS/HCC); Wellness examination; Full code status; Alcohol screening; Screening for multiple conditions Start: 06-20-2022 End: 06-20-2022 Patient encounter status Saima Mendoza MD Work Phone: [facility] Work Phone: Start: 06-13-2022 Telephone encounter Stevie silva MD, PhD Work Phone: [facility] Comment on above: Appointment (Fall Cl inic 06/24) Start: 06-06-2022 End: 06-06-2022 ambulatory STEVIE MCCARTY Facility:[facility] Start: 05-29-2022 End: 05-29-2022 ambulatory [facility] Work Phone: Start: 05-29-2022 End: 05-29-2022 Patient encounter procedure [facility] Start: 04-25-2022 End: 04-25-2022 ambulatory STEVIE MCCARTY Facility:[facility] Start: 04-25-2022 End: 04-25-2022 Subsequent hospital visit by physician [employer] [place] Senior [employer] Comment on above: Closed nondisplaced fracture of second cervical vertebra, unspecified fracture morphology, sequela [S12.101S] Start: 04-25-2022 End: 04-25-2022 Patient encounter procedure Stevie Mccarty MD, PhD Work Phone: [facility] Comment on above: Closed nondisplaced fracture of second cervical vertebra, unspecified fracture morphology, sequela (Primary Dx); Fall, sequela Start: 04-17-2022 End: 04-17-2022 Emergency department patient visit [facility] Start: 04-15-2022 AUDIT Saima Vern Kelly Work Phone: [facility] Work Phone: Start: 03-20-2022 AUDIT Saima Porras Kelly Work Phone: [facility] Work Phone: Start: 02-06-2022 Office outpatient vi sit 25 minutes Saima Eganon Work Phone: [facility] Work Phone: Start: 12-17-2021 AUDIT Saima Porras Ciales Work Phone: [facility] Work Phone: Start: 10-24-2021 EPV, Provider: Saima Mendoza, Status: Pen, Time: 11:00 AM Saima Eganon Work Phone: [facility] Work Phone: Start: 10-24-2021 Office outpatient vi sit 25 minutes Saima Mendoza Work Phone: [facility] Work Phone: Start: 10-23-2021 AUDIT Saima Porras Ciales Work Phone: [facility] Work Phone: Start: 09-27-2021 AUDIT Saima Vern Kelly Work Phone: [facility] Work Phone: Start: 09-24-2021 AUDIT Saima M Ciales Work Phone: [facility] Work Phone: Start: 09-03-2021 AUDIT Saima M Kelly Work Phone: [facility] Work Phone: Start: 07-30-2021 AUDIT Saima Vern Ciales Work Phone: [facility] Work Phone: Start: 07-11-2021 AUDIT Saima Porras Kelly Work Phone: [facility] Work Phone: Start: 06-04-2021 AUDIT Saima Porras Ciales Work Phone: [facility] Work Phone: Start: 05-15-2021 End: 05-15-2021 Patient encounter procedure [facility] Start: 04-04-2021 AUDIT Saima Porras Ciales Work Phone: [facility] Work Phone: Start: 03-16-2021 AUDIT Saima Porras Ciales Work Phone: [facility] Work Phone: Start: 02-05-2021 FUV, Provider: Saima Mendoza, Status: Pen, Time: 11:00 AM Saima Porras Kelly Work Phone: [facility] Work Phone: Start: 02-05-2021 Office outpatient vi sit 25 minutes Saima Mendoza Work Phone: [facility] Work Phone: Start: 02-03-2021 AUDIT Saima Porras Ciales Work Phone: [facility] Work Phone: Start: 01-17-2021 AUDIT Saima Porras Ciales Work Phone: [facility] Work Phone: Start: 12-14-2020 AUDIT Saima Porras Ciales Work Phone: [facility] Work Phone: Start: 11-08-2020 Chart Update Saima Porras Ciales Work Phone: [facility] Work Phone: Start: 11-07-2020 Chart Update Saima Porras Ciales Work Phone: [facility] Work Phone: Start: 10-16-2020 FUV, Provider: Saima Mendoza, Status: Pen, Time: 11:00 AM Saima Mendoza Work Phone: [facility] Work Phone: Start: 10-16-2020 Office outpatient vi sit 25 minutes Saima Mendoza Work Phone: [facility] Work Phone: Start: 10-15-2020 AUDIT Saima Porras Ciales Work Phone: [facility] Work Phone: Start: 06-12-2020 Patient encounter procedure Saima Mendoza MD [facility] Work Phone: Start: 02-08-2020 Patient encounter procedure Saima Mendoza [facility] Work Phone: Start: 10-12-2019 Patient encounter procedure Saima Mendoza [facility] Work Phone: Start: 09-07-2019 [facility] Start: 07-13-2019 Patient encounter procedure [facility] Start: 05-18-2019 Patient encounter procedure [facility] Start: 03-16-2019 Patient encounter procedure [facility] Start: 12-22-2018 Patient encounter procedure [facility] Start: 11-20-2018 Patient encounter procedure [facility] Start: 07-23-2018 Patient encounter procedure [facility] Start: 05-21-2018 Patient encounter procedure [facility] Start: 01-22-2018 Patient encounter procedure [facility] Start: 12-09-2017 Patient encounter procedure [facility] Start: 11-05-2017 Patient encounter procedure [facility] Start: 08-13-2017 Patient encounter procedure [facility] Start: 07-03-2017 Patient encounter procedure [facility] Start: 06-05-2017 Patient encounter procedure [facility] Start: 02-04-2017 Patient encounter procedure [facility]: Start: 12-03-2016 Nursing evaluation o f patient and report [facility]endo[facility]: Start: 10-01-2016 Patient encounter procedure Saima Mendoza [facility] Work Phone: Procedures Date Procedure Procedure Detail Performing Clinician Start: 09-16-2024 X-ray of knee, one o r two views Gerry Escalante MD Work Phone: Start: 09-16-2024 Plain chest X-ray Gerry Escalante MD Work Phone: Start: 09-16-2024 Plain x-ray of pelvi s and lower extremity Gerry Escalante MD Work Phone: Start: 09-16-2024 CT of head without contrast Gerry Escalante MD Work Phone: Start: 09-16-2024 Estimated creatinine clearance Gerry Escalante MD Work Phone: Start: 09-16-2024 CT cervical spine wi thout contrast Gerry Escalante MD Work Phone: Start: 08-12-2024 Lipid 1996 panel - S aubrey or Plasma Saima Mendoza MD Work Phone: Start: 02-10-2024 Dup-scan xtr veins unilateral/limited study Marivel Tracy MD Work Phone: Start: 10-08-2023 Iadna s aureus ampli fied probe tq Marivel Tracy MD Work Phone: Start: 10-08-2023 Thromboplastin time partial plasma/whole blood Marivel Tracy MD Work Phone: Start: 08-19-2023 Open reduction of fr acture of patella with internal fixation DR MERCEDES LOCK MD Comment on above: AND [employer] Start: 06-23-2023 CBC panel - Blood by Automated count SAIMA EGANON Start: 06-23-2023 Comprehensive metabo lic 2000 panel - Serum or Plasma SAIMA MENDOZA Start: 06-23-2023 Lipid panel SAIMA DENT ON Start: 06-23-2023 TSH WITH REFLEX TO F REE T4 IF ABNORMAL SAIMA MENDOZA Start: 06-23-2023 TYPE AND SCREEN SAIMA ALMARAZ Start: 06-23-2023 VITAMIN D 25-HYDROXY,TOTAL SAIMA MENDOZA Start: 06-23-2023 Lipid 1996 panel - S aubrey or Plasma Saima Mendoza MD Work Phone: Start: 05-15-2023 Total replacement of left knee joint DR MERCEDES LOCK MD Start: 04-18-2023 MRI of lower extremity Dr. Saima Mendoza Work Phone: Start: 04-25-2022 Radex spine cervical 2 or 3 views Stevie Mccarty MD, PhD Work Phone: Start: 04-17-2022 Plain chest X-ray Start: 04-17-2022 CT cervical spine wi thout contrast Start: 04-17-2022 CT of head without contrast Start: 02-08-2020 25 hydroxy includes fractions if performed Saima Eganon Start: 02-08-2020 CBC W Auto Different ial panel - Blood Saima Eganon Start: 02-08-2020 Comprehensive metabo lic 2000 panel Saima Ciales Start: 02-08-2020 Lipid panel Saima Victoria on Start: 02-08-2020 TSH WITH REFLEX TO F REE T4 IF ABNORMAL Saima Mendoza Start: 11-08-2019 MG Breast screening Joana Mendoza Start: 05-21-2017 Lipid 1996 panel - S aubrey or Plasma Saima Mendoza MD Work Phone: Start: 10-17-2011 Cataract surgery Saima Mendoza Work Phone: Comment on above: 10/17/[address] Mcdermott ; Appendectomy DR MERCEDES Gupta MD End: 10-17-2011 Cataract surgery Saimawai Eganon Hysterectomy DR MERCEDES Gupta MD Hysteroscopy Saima Mendoza Comment on above: 1980 ovaries remain; Open reduction of fr acture with internal fixation DR MERCEDES LOCK MD Comment on above: left wrist Screening colonoscopy Saima Mendoza Comment on above: rectal nodules, int hem, tics7/17/18 zach Smith sig tics, sofía int hem; Plan of Treatment Date Care Activity Detail Author Start: 08-12-2029 Lipid panel Lipid Panel [facility] Start: 06-22-2028 Lipid panel Lipid Panel [facility] Start: 08-13-2027 Diabetes Screening Diabetes Screenin g [facility] Start: 10-15-2026 Diabetes Screening Diabetes Screenin g [facility] Start: 10-07-2026 Diabetes Screening Diabetes Screenin g [facility] Start: 09-11-2025 Annual PCP Team Chronic Disease Visit Annual PCP Team Chronic Disease Visit [facility] Start: 09-11-2025 Anxiety Screening Anxiety Screening [facility] Start: 09-11-2025 Covid-19 Vaccine () Covid-19 Vaccine () [facility] Comment on above: Postponed from 10/25 (Declined at this time) Start: 09-11-2025 Pneumococcal Vaccine : 50+ (2 of 2 - PCV) Pneumococcal Vaccine: 50+ (2 of 2 - PCV) [facility] Comment on above: Postponed from 01/18 (Declined at this time) Start: 08-24-2025 Medicare Annual Wellness Visit Medicare Annual Wellness Visit (AWV) [facility] Start: 12-22-2024 End: 12-22-2024 Patient encounter procedure 12/22/2024 11:00 AM EDT Office Visit [facility] [address] [facility] [address] [place] [phone] Saima Mendoza MD [address] [facility] [address] [place] [address] [facility] Start: 11-12-2024 End: 11-12-2024 Patient encounter procedure 11/12/2024 1:00 PM EDT Office Visit Family Argenis Webster [address] [place] [id number] Rachel Frazier MD [address] [facility] [place] [address] 2 month follow up Family [facility] Comment on above: 2 month follow up Start: 11-10-2024 End: 11-10-2024 Patient encounter procedure 11/10/2024 11:30 AM EDT Appointment [facility] [address] [place] [phone] [facility] Start: 11-09-2024 End: 08-23-2025 DXA Skeletal system Views for bone density XR DEXA bone density Imaging Routine Asymptomatic menopausal state Expected: 11/09/2024, Expires: 08/23/2025 [facility] Service Area Work Phone: Comment on above: Expected: 11/09/2024 , Expires: 08/23/2025 Start: 10-25-2024 Influenza vaccination Influenza Vacc ine (#1) [facility] Start: 10-12-2024 End: 01-11-2025 Hemoglobin A1c in Blood HEMOGLOBIN A1C Lab Routine Encounter for health-related screening Expected: 10/12/2024 (Approximate), Expires: 01/11/2025 [facility] Work Phone: Comment on above: Expected: 10/12/2024 (Approximate), Expires: 01/11/2025 Start: 10-07-2024 BP Controlled (<130/80) BP Controlled (<130/80) [facility] Start: 10-07-2024 Diabetes mellitus screening Diabetes Screening [facility] Start: 10-07-2024 Hemoglobin A1c measurement Diabetes: Hemoglobin A1C [facility] Start: 09-16-2024 Admission procedure [facility] Start: 09-16-2024 Verification routine [facility] Start: 09-16-2024 Hospital admission, emergency, from emergency room, medical nature [facility] Start: 07-14-2024 End: 07-14-2024 Patient encounter procedure 07/14/2024 11:00 AM EDT Office Visit [facility] [address] [place] [phone] Saima Mendoza MD [address] [facility] [address] [place] [address] [facility] Start: 06-24-2024 Medicare Annual Wellness Visit Medicare Annual Wellness Visit (AWV) [facility] Start: 05-25-2024 End: 04-06-2025 25-hydroxyvitamin D3 [Mass/volume] in Serum or Plasma Vitamin D 25-Hydroxy,Total (for eval of Vitamin D levels) Lab Routine Primary hypertension Mixed hyperlipidemia Hypercholesterolemia Gastroesophageal reflux disease without esophagitis Vitamin D deficiency Expected: 05/25/2024, Expires: 04/06/2025 [facility] Work Phone: Comment on above: Expected: 05/25/2024 , Expires: 04/06/2025 Start: 05-25-2024 End: 04-06-2025 CBC panel - Blood by Automated count CBC Lab Routine Primary hypertension Mixed hyperlipidemia Hypercholesterolemia Gastroesophageal reflux disease without esophagitis Vitamin D deficiency Expected: 05/25/2024, Expires: 04/06/2025 [facility] Work Phone: Comment on above: Expected: 05/25/2024 , Expires: 04/06/2025 Start: 05-25-2024 End: 04-06-2025 Comprehensive metabolic 2000 panel - Serum or Plasma Comprehensive Metabolic Panel Lab Routine Primary hypertension Mixed hyperlipidemia Hypercholesterolemia Gastroesophageal reflux disease without esophagitis Vitamin D deficiency Expected: 05/25/2024, Expires: 04/06/2025 [facility] Work Phone: Comment on above: Expected: 05/25/2024 , Expires: 04/06/2025 Start: 05-25-2024 End: 04-06-2025 Lipid 1996 panel - Serum or Plasma Lipid Panel Lab Routine Primary hypertension Mixed hyperlipidemia Hypercholesterolemia Gastroesophageal reflux disease without esophagitis Vitamin D deficiency Expected: 05/25/2024, Expires: 04/06/2025 [facility] Work Phone: Comment on above: Expected: 05/25/2024 , Expires: 04/06/2025 Start: 05-25-2024 End: 04-06-2025 TSH with reflex to Free T4 if abnormal TSH with reflex to Free T4 if abnormal Lab Routine Primary hypertension Mixed hyperlipidemia Hypercholesterolemia Gastroesophageal reflux disease without esophagitis Vitamin D deficiency Expected: 05/25/2024, Expires: 04/06/2025 [facility] Service Area Work Phone: Comment on above: Expected: 05/25/2024 , Expires: 04/06/2025 Start: 03-15-2024 End: 03-15-2024 Patient encounter procedure 03/15/2024 11:00 AM EST Office Visit [facility] [address] [facility] [address] [place] [phone] Saima Mendoza MD [address] [facility] [place] [address] [facility] Start: 02-25-2024 Medicare Advantage Annual Wellness Visit Medicare Advantage Annual Wellness Visit [facility] Start: 11-17-2023 End: 11-16-2024 Urinalysis complete W Reflex Culture panel - Urine [facility] Service Area Work Phone: Comment on above: Expected: 11/17/2023 (Approximate), Expires: 11/16/2024 Start: 10-28-2023 End: 10-28-2023 Patient encounter procedure [facility] Start: 10-26-2023 COVID-19 Vaccine ( season) COVID-19 Vaccine ( season) [facility] Start: 10-26-2023 COVID-19 Vaccine ( season) COVID-19 Vaccine ( season) [facility] Start: 10-26-2023 Influenza vaccination Influenza Vacc ine (#1) [facility] Start: 10-15-2023 End: 10-15-2023 Admission to same day surgery center 10/15/2023 12:00 PM EDT - 10/15/2023 3:05 PM EDT Surgery [facility] [address] [address] Marivel Tracy MD [address] [facility] [address] [place] [phone] REVISION JOINT TOTAL KNEE FEMORAL AND ENTIRE TIBIAL COMPONENT [facility] Comment on above: REVISION JOINT TOTAL KNEE FEMORAL AND ENTIRE TIBIAL COMPONENT Start: 10-15-2023 End: 10-15-2023 Rcnstj dislc patella w/xtnsr relignmt&/musc rl REALIGNMENT PATELLA Other specified injury of left quadriceps muscle, fascia and tendon, initial encounter 10/15/2023 12:00 PM EDT MR OR Start: 10-15-2023 End: 10-15-2023 Revj tot knee arthrp fem&entire tibial compone REVISION JOINT TOTAL KNEE FEMORAL AND ENTIRE TIBIAL COMPONENT Other specified injury of left quadriceps muscle, fascia and tendon, initial encounter 10/15/2023 12:00 PM EDT MR OR Start: 10-15-2023 Subsequent hospital visit by physician 10/15/2023 12:00 PM EDT Hospital Encounter [facility] [address] [place] [address] Marivel Tracy MD [address] [facility] [address] [place] [phone] Other specified injury of left quadriceps muscle, fascia and tendon, initial encounter [S76.192A] [facility] Comment on above: Other specified inju ry of left quadriceps muscle, fascia and tendon, initial encounter [S76.192A] Start: 10-08-2023 End: 01-07-2024 Hemoglobin A1c in Blood [facility] Work Phone: Comment on above: Expected: 10/08/2023 , Expires: 01/07/2024 Start: 06-24-2023 End: 08-23-2024 DBT Breast - bilateral BI mammo bilateral screening tomosynthesis Imaging Routine Screening mammogram for breast cancer Expected: 06/24/2023, Expires: 08/23/2024 [facility] Service Area Work Phone: Comment on above: Expected: 06/24/2023 , Expires: 08/23/2024 Start: 06-24-2023 End: 06-24-2023 Patient encounter procedure 06/24/2023 11:00 AM EDT Office [facility] [address] [phone] Saima Mendoza MD [address] [facility] [place] [address] [facility] Start: 06-23-2023 End: 02-29-2024 25-hydroxyvitamin D3 [Mass/volume] in Serum or Plasma Vitamin D 25-Hydroxy,Total (for eval of Vitamin D levels) Lab Routine Current moderate episode of major depressive disorder, unspecified whether recurrent (CMS/HCC) Primary hypertension Inflammatory arthritis Mixed hyperlipidemia Gastroesophageal reflux disease without esophagitis Generalized osteoarthritis of multiple sites Vitamin D deficiency Expected: 06/23/2023, Expires: 02/29/2024 [facility] Work Phone: Comment on above: Expected: 06/23/2023 , Expires: 02/29/2024 Start: 06-23-2023 End: 02-29-2024 CBC panel - Blood by Automated count CBC Lab Routine Current moderate episode of major depressive disorder, unspecified whether recurrent (CMS/HCC) Primary hypertension Inflammatory arthritis Mixed hyperlipidemia Gastroesophageal reflux disease without esophagitis Generalized osteoarthritis of multiple sites Vitamin D deficiency Expected: 06/23/2023, Expires: 02/29/2024 [facility] Work Phone: Comment on above: Expected: 06/23/2023 , Expires: 02/29/2024 Start: 06-23-2023 End: 02-29-2024 Comprehensive metabolic 2000 panel - Serum or Plasma Comprehensive Metabolic Panel Lab Routine Current moderate episode of major depressive disorder, unspecified whether recurrent (CMS/HCC) Primary hypertension Inflammatory arthritis Mixed hyperlipidemia Gastroesophageal reflux disease without esophagitis Generalized osteoarthritis of multiple sites Vitamin D deficiency Expected: 06/23/2023, Expires: 02/29/2024 [facility] Work Phone: Comment on above: Expected: 06/23/2023 , Expires: 02/29/2024 Start: 06-23-2023 End: 02-29-2024 Lipid 1996 panel - Serum or Plasma Lipid Panel Lab Routine Current moderate episode of major depressive disorder, unspecified whether recurrent (CMS/HCC) Primary hypertension Inflammatory arthritis Mixed hyperlipidemia Gastroesophageal reflux disease without esophagitis Generalized osteoarthritis of multiple sites Vitamin D deficiency Expected: 06/23/2023, Expires: 02/29/2024 [facility] Work Phone: Comment on above: Expected: 06/23/2023 , Expires: 02/29/2024 Start: 06-23-2023 End: 02-29-2024 TSH with reflex to Free T4 if abnormal TSH with reflex to Free T4 if abnormal Lab Routine Current moderate episode of major depressive disorder, unspecified whether recurrent ([facility]) Primary hypertension Inflammatory arthritis Mixed hyperlipidemia Gastroesophageal reflux disease without esophagitis Generalized osteoarthritis of multiple sites Vitamin D deficiency Expected: 06/23/2023, Expires: 02/29/2024 [facility] Work Phone: Comment on above: Expected: 06/23/2023 , Expires: 02/29/2024 Start: 06-22-2023 Medicare Annual Wellness Visit Medicare Annual Wellness Visit (AWV) [facility] Start: 04-28-2023 End: 04-27-2024 Blood type and Indirect antibody screen panel - Blood Type and screen Lab Routine Preop examination Total knee replacement status, left Expected: 04/28/2023 (Approximate), Expires: 04/27/2024 [facility] Work Phone: Comment on above: Expected: 04/28/2023 (Approximate), Expires: 04/27/2024 Start: 04-28-2023 End: 04-27-2024 CBC panel - Blood by Automated count CBC Lab Routine Preop examination Total knee replacement status, left Expected: 04/28/2023 (Approximate), Expires: 04/27/2024 [facility] Work Phone: Comment on above: Expected: 04/28/2023 (Approximate), Expires: 04/27/2024 Start: 04-28-2023 End: 04-27-2024 Comprehensive metabolic 2000 panel - Serum or Plasma Comprehensive metabolic panel Lab Routine Preop examination Total knee replacement status, left Expected: 04/28/2023 (Approximate), Expires: 04/27/2024 [facility] Work Phone: Comment on above: Expected: 04/28/2023 (Approximate), Expires: 04/27/2024 Start: 02-28-2023 End: 02-28-2023 Patient encounter procedure 02/28/2023 11:15 AM EST [facility] [address] [phone] Saima Mendoza MD [address] [facility] [place] [address] [facility] Start: 02-24-2023 Advance Directive Discussion Advance Directive Discussion [facility] Start: 02-07-2023 DIABETES SCREEN DIABETES SCREEN [facility] Start: 11-07-2022 End: 10-25-2023 DXA Skeletal system Views for bone density XR DEXA bone density Imaging Routine Asymptomatic menopausal state Expected: 11/07/2022, Expires: 10/25/2023 [facility] Service Area Work Phone: Comment on above: Expected: 11/07/2022 , Expires: 10/25/2023 Start: 10-25-2022 COVID-19 Vaccine ( season) COVID-19 Vaccine ( season) [facility] Start: 10-25-2022 Influenza vaccination [facility] Start: 10-24-2022 End: 10-24-2022 Patient encounter procedure 10/24/2022 11:00 AM EDT Office [facility] [address] [phone] Saima Mendoza MD [address] [facility] [place] [address] [facility] Start: 06-27-2022 DTaP/Tdap/Td Vaccine s (3 - Tdap) DTaP/Tdap/Td Vaccines (3 - Tdap) [facility] Start: 06-27-2022 Urine microalbumin profile [facility] Start: 06-20-2022 Patient encounter procedure MCRANNUAL, Provider: Saima Mendoza, Status: Pen, Time: 11:00 AM [facility] Work Phone: Start: 05-21-2022 Lipid panel Lipid Panel [facility] Start: 02-24-2022 ADVANCE DIRECTIVE DISCUSSION ADVANCE DIRECTIVE DISCUSSION [facility] Start: 02-24-2022 DEPRESSION ASSESSMENT DEPRESSION ASS ESSMENT [facility] Start: 02-06-2022 FUV, Provider: Saima Mendoza, Status: Pen, Time: 11:00 AM FUV, Provider: Saima Mendoza, Status: Pen, Time: 11:00 AM [facility] Work Phone: Start: 10-25-2021 Influenza vaccination INFLUENZA (#1) [facility] Start: 10-24-2021 EPV, Provider: Saima Mendoza, Status: Pen, Time: 11:00 AM EPV, Provider: Saima Mendoza, Status: Pen, Time: 11:00 AM [facility] Work Phone: Start: 06-22-2021 Patient encounter procedure MCRANNUAL, Provider: Saima Mendoza, Status: Pen, Time: 11:30 AM [facility] Work Phone: Start: 06-19-2021 Patient encounter procedure MCRANNUAL, Provider: Saima Mendoza, Status: Pen, Time: 11:30 AM [facility] Work Phone: Start: 06-05-2021 Patient encounter procedure MCRANNUAL, Provider: Saima Mendoza, Status: Pen, Time: 11:00 AM [facility] Work Phone: Start: 02-05-2021 FUV, Provider: Saima Mendoza, Status: Pen, Time: 11:00 AM FUV, Provider: Saima Mendoza, Status: Pen, Time: 11:00 AM [facility] Work Phone: Start: 2020 RSV High Risk: (Elderly (60+) or Population) (1 - 1-dose 75+ series) RSV High Risk: (Elderly (60+) or Population) (1 - 1-dose 75+ series) [facility] Start: 2020 RSV Vaccine (1 - 1-dose 75+ series) RSV Vaccine (1 - 1-dose 75+ series) [facility] Start: 06-11-2020 25 hydroxy includes fractions if performed Vitamin D 25-Hydroxy [facility]: Start: 06-11-2020 CBC W Auto Differential panel - Blood Complete Blood Count [facility]: Start: 06-11-2020 Comprehensive metabolic 2000 panel - Serum or Plasma Comprehensive Metabolic Panel [facility] Work [facility]: Start: 06-11-2020 Lipid panel [facility] Panel [facility] Work Phone: Start: 06-11-2020 TSH WITH REFLEX TO FREE T4 IF ABNORMAL TSH WITH REFLEX TO FREE T4 IF ABNORMAL [facility]: Start: 04-24-2020 25 hydroxy includes fractions if performed Vitamin D 25-Hydroxy [facility] Work [facility]: Start: 04-24-2020 CBC W Auto Differential panel - Blood [facility] Work [facility]: Start: 04-24-2020 Comprehensive metabolic 2000 panel Comprehensive Metabolic Panel [facility] Work Phone: Start: 04-24-2020 Lipid panel Lipid Panel [facility] Work Phone: Start: 01-18-2014 Pneumococcal vaccination Pneumococcal Vaccine (2 of 2 - PCV) [facility] Start: 01-18-2014 Pneumococcal Vaccine : 50+ (2 of 2 - PCV) Pneumococcal Vaccine: 50+ (2 of 2 - PCV) [facility] Start: 01-18-2014 Pneumococcal Vaccine : 65+ (2 of 2 - PCV) Pneumococcal Vaccine: 65+ (2 of 2 - PCV) [facility] Start: 01-18-2014 Pneumococcal Vaccine : 65+ Years (2 - PCV) Pneumococcal Vaccine: 65+ Years (2 - PCV) [facility] Start: 01-18-2014 Pneumococcal Vaccine : 65+ Years (2 of 2 - PCV) Pneumococcal Vaccine: 65+ Years (2 of 2 - PCV) [facility] Start: 06-28-2012 DTaP/Tdap/Td Vaccine s (1 - Tdap) DTaP/Tdap/Td Vaccines (1 - Tdap) [facility] Start: 2010 PNEUMOCOCCAL: 65+ (1 - PCV) PNEUMOCOCCAL: 65+ (1 - PCV) [facility] Start: 2005 RSV patient s and/or patients aged 60+ years (1 - 1-dose 60+ series) RSV patients and/or patients aged 60+ years (1 - 1-dose 60+ series) [facility] Start: 2005 RSV Vaccine (1 - 1-dose 60+ series) RSV Vaccine (1 - 1-dose 60+ series) [facility] Start: 07-18-1995 SHINGRIX VACCINE (1 of 2) SHINGRIX VACCINE (1 of 2) [facility] Start: 1964 Urine microalbumin profile DTAP,TDAP,TD (1 - Tdap) [facility] Start: 07-18-1963 ANNUAL PCP TEAM CHRONIC DISEASE VISIT ANNUAL PCP TEAM CHRONIC DISEASE VISIT [facility] Start: 07-18-1963 Anxiety Screening Anxiety Screening [facility] Start: 07-18-1963 BP CONTROLLED (<130/80) BP CONTROLLED (<130/80) [facility] Start: 07-18-1963 Diabetes mellitus screening Diabetes Screening [facility] Start: 07-18-1963 HEPATITIS C SCREENING HEPATITIS C [facility] Start: 07-18-1963 Hepatitis C screening Hepatitis C [facility] Start: 01-17-1946 COVID-19 VACCINE (#1) COVID-19 VACCI NE (#1) [facility] Start: 1945 Medicare Annual Wellness Visit Medicare Annual Wellness Visit (AWV) [facility] DXA Skeletal system Views for bone density XR DEXA bone density Imaging Routine Asymptomatic menopausal state 10/24/2022 11:41 AM EDT [facility] Work Phone: End: 12-11-2023 ECG 12 Lead [facility] Service Area Work Phone: Comment on above: Once for 1 Occurrenc es starting 12/11/2023 until 12/11/2023 End: 10-06-2024 ECG COMPLETE ECG COMPLETE ECG Routine Preop testing 1 Occurrences starting 10/07/2023 until 10/06/2024 [facility] Work Phone: Comment on above: 1 Occurrences starti ng 10/07/2023 until 10/06/2024 Patient Education Fx Neck Spine [facility] Work Phone: Patient referral [facility] Work Phone: PT PLAN OF CARE CERTIFICATION PT PLAN OF CARE CERTIFICATION Procedures Routine Fall, sequela Ordered: 06/25/2022 [facility] Work Phone: Comment on above: Ordered: 06/25/2022 End: 05-25-2023 Radex spine cervical 2 or 3 views XR CERV GENERAL 2V AP/LAT Radiology Routine Closed nondisplaced fracture of second cervical vertebra, unspecified fracture morphology, sequela 1 Occurrences starting 04/25/2022 until 05/25/2023 [facility] Work Phone: Comment on above: 1 Occurrences starti ng 04/25/2022 until 05/25/2023 Radex spine cervical 2 or 3 views XR CERV GENERAL 2V AP/LAT Radiology Routine Closed nondisplaced fracture of second cervical vertebra, unspecified fracture morphology, sequela 04/25/2022 3:38 PM EST [facility] Work Phone: US Lower extremity vein US LEG VEIN DVT UNL VAS LAB Vascular Lab STAT Leg edema 02/10/2024 4:37 PM EST [facility] Work Phone: End: 10-11-2025 XR Knee - left 4 Views XR KNEE GENERAL 4V AP BOTH/PA BOTH/LAT/MERC LEFT Radiology Routine Knee locking, left 1 Occurrences starting 09/11/2024 until 10/11/2025 [facility] Comment on above: 1 Occurrences starti ng 09/11/2024 until 10/11/2025 XR Knee - left 4 Views XR KNEE GENERAL 4V AP BOTH/PA BOTH/LAT/MERC LEFT Radiology Routine Knee locking, left 09/11/2024 11:57 AM EDT [facility] End: 10-11-2025 XR Shoulder - right 3 Views XR SHOULDER GENERAL 3V OR MORE AP/TRUE AP/OTHER RIGHT Radiology Routine Chronic right shoulder pain 1 Occurrences starting 09/11/2024 until 10/11/2025 [facility] Comment on above: 1 Occurrences starti ng 09/11/2024 until 10/11/2025 XR Shoulder - right 3 Views XR SHOULDER GENERAL 3V OR MORE AP/TRUE AP/OTHER RIGHT Radiology Routine Chronic right shoulder pain 09/11/2024 11:57 AM EDT [facility] Work Phone: [facility] NEGATED: Highlighted row has been ruled out! Planned Goals not documented [facility] Work Phone: Immunizations Immunization Date Immunization Notes Care Provider Fa timothy 11-17-2023 influenza, high dose seasonal, preservative-free Saima Mendoza MD Work Phone: [facility] Work Phone: 11-17-2023 influenza virus vacc ine, unspecified formulation Rachel Frazier MD Work Phone: [facility] 10-25-2023 tuberculin skin test ; purified protein derivative solution, intradermal Samia Mendoza MD Work Phone: [facility] Work Phone: 10-18-2023 tuberculin skin test ; purified protein derivative solution, intradermal Saima Mendoza MD Work Phone: [facility] Work Phone: 08-28-2023 tuberculin skin test ; purified protein derivative solution, intradermal Saima Mendoza MD Work Phone: [facility] Work Phone: 08-21-2023 tuberculin skin test ; purified protein derivative solution, intradermal Saima Mendoza MD Work Phone: [facility] Work Phone: 02-28-2023 Flu vaccine, quadrivalent, high-dose, preservative free, age 65y+ (FLUZONE) Saima Mendoza MD Work Phone: [facility] Work Phone: 02-28-2023 influenza virus vacc ine, unspecified formulation DR MERCEDES LOCK MD [facility] 02-05-2021 influenza, high dose seasonal, preservative-free; Translations: [Fluzone High-Dose 0.5 ML Intramuscular Suspension Prefilled Syringe] Saima Mendoza Work Phone: [facility] Work Phone: Comment on above: Series: 02-05-2021 influenza virus vacc ine, unspecified formulation Saima Mendoza MD Work Phone: [facility] Work Phone: 03-02-2020 zoster vaccine recombinant Saima Mendoza Work Phone: [facility] Work Phone: 02-08-2020 influenza (HD-IIV4) vaccine, age 65+ yr, high dose, quadrivalent, PF (FLUZONE HIGH-DOSE) Rachel Frazier MD Work Phone: [facility] 02-08-2020 influenza, high dose seasonal, preservative-free; Translations: [Fluzone High-Dose 0.5 ML Intramuscular Suspension Prefilled Syringe] S[facility]a Mendoza [facility] Work Phone: Comment on above: Series: 10-18-2019 zoster vaccine recombinant [facility] Work Phone: Comment on above: Series: 10-12-2019 zoster vaccine recombinant; Translations: [Shingrix 50 MCG Intramuscular Suspension Reconstituted] Saima Mendoza [facility] Work Phone: 10-12-2019 Shingrix 50 MCG Intramuscular Suspension Reconstituted Saima Mendoza Work Phone: [facility] Work Phone: 10-12-2019 zoster vaccine-recombinant adjuvanted (Shingrix) 50 mcg/0.5 mL vaccine Saima Mendoza MD Work Phone: [facility] Work Phone: 11-20-2018 influenza, high dose seasonal, preservative-free; Translations: [Fluzone High-Dose 0.5 ML Intramuscular Suspension Prefilled Syringe] [facility]endoza [facility] Work Phone: Comment on above: Series: 12-09-2017 influenza, high dose seasonal, preservative-free; Translations: [Fluzone High-Dose 0.5 ML Intramuscular Suspension Prefilled Syringe] [facility]endoza [facility] Work Phone: Comment on above: Series: 12-03-2016 influenza, high dose seasonal, preservative-free; Translations: [Fluzone High-Dose 0.5 ML Intramuscular Suspension Prefilled Syringe] [facility]endoza [facility] Work Phone: Comment on above: Series: 12-06-2014 influenza, seasonal, injectable; Translations: [Flulaval INJ] Saima Mendoza [facility] Work Phone: Comment on above: Series: 12-06-2013 influenza, injectabl e, quadrivalent, preservative free Dr. Saima Mendoza Work Phone: [facility] 12-06-2013 influenza, seasonal, injectable [facility] 12-06-2013 influenza, seasonal, injectable, preservative free Saima Mendoza MD Work Phone: [facility] Work Phone: 12-06-2013 influenza, seasonal, injectable Saima Mendoza [facility] Work Phone: 01-18-2013 pneumococcal polysaccharide vaccine, 23 valent Saima Mendoza [facility] Work Phone: Comment on above: Series: 01-18-2013 Pneumococcal Vaccine [facility] Work Phone: 01-18-2013 pneumococcal vaccine , unspecified formulation [facility] 01-05-2013 influenza, seasonal, injectable; Translations: [Flulaval INJ] Saima Mendoza [facility] Work Phone: Comment on above: Series: 12-20-2012 Flu vaccine, quadrivalent, high-dose, preservative free, age 65y+ (FLUZONE) Saima Mendoza MD Work Phone: [facility] Work Phone: 12-20-2012 Influenza virus vaccine [facility] 06-27-2012 tetanus and diphther ia toxoids, adsorbed, preservative free, for adult use (2 Lf of tetanus toxoid and 2 Lf of diphtheria toxoid) Saima Mendoza MD Work Phone: [facility] Work Phone: 06-27-2012 tetanus and diphther ia toxoids, adsorbed, preservative free, for adult use (2 Lf of tetanus toxoid and 2 Lf of diphtheria toxoid) [facility]endoza [facility] Work Phone: 01-07-2012 influenza, seasonal, injectable; Translations: [Flulaval INJ] Saima Mendoza [facility] Work Phone: Comment on above: Series: 10-10-2011 varicella zoster imm une globulin S[facility]a Mendoza [facility] Work Phone: Comment on above: Series: 01-29-2011 influenza virus vacc ine, unspecified formulation Saima Mendoza Work [facility] Work Phone: Comment on above: Series: 01-29-2011 influenza, seasonal, injectable [facility]a [facility]endoza [facility] Work Phone: 08-02-2010 pneumococcal polysaccharide vaccine, 23 valent [facility]a [facility]endoza [facility] Work Phone: Comment on above: Series: 06-21-2003 diphtheria, tetanus toxoids and acellular pertussis vaccine Saima Mendoza MD Work Phone: [facility] Work Phone: 06-21-2003 TD(adult) unspecifie d formulation Saima Mendoza Work Phone: [facility] Work Phone: influenza virus vacc ine, unspecified formulation Saima Mendoza Work Phone: [facility] Work Phone: Comment on above: 12/06/13 Series: tetanus and diphther ia toxoids, adsorbed, preservative free, for adult use (2 Lf of tetanus toxoid and 2 Lf of diphtheria toxoid) Saima Mendoza Work Phone: [facility] Work Phone: Comment on above: 06/27/12 Series: Payers Date Payer Category Payer Self-pay [id number] 2021 Medicare [id number] 2021 Medicare (Managed Care) [id number]. [id number] 2021 Private Health Insurance [id number] 1945 Unknown [id number] 1945 Unknown [id number] 1945 Unknown [id number] 1945 Unknown [id number] 1945 Unknown [id number] 1945 Unknown [id number] 1945 Unknown [id number] 1945 Unknown [id number] 1945 Unknown [id number] Unknown [employer] Unknown [facility] [employer] [id number] Unknown [id number] Unknown [id number] Unknown [id number] Social History Date Type Detail Facility Start: 06-20-2022 End: 07-05-2022 Never smoker Never smoker [facility] Work Phone: Start: 12-22-2020 End: 04-17-2022 Tobacco smoking status VAIS Unknown if ever smoked [facility] Start: 12-04-2013 Rare [facility] Start: 12-04-2013 None [facility] Start: 12-04-2013 Spouse/ Signif icant Other;- [facility] Start: 12-04-2013 Non-smoker [facility] Start: 1945 Sex Assigned At Female W [facility] Start: 06-07-2011 End: 09-16-2024 Tobacco smoking status NHIS Never smoked tobacco [facility] Start: 04-25-2022 End: 09-11-2024 Alcohol intake Current non-drinker of alcohol (finding) [facility] Start: 1945 Sex Assigned At Not on file [facility] Start: 06-20-2022 Tobacco use and exposure Smokeless tobacco non-user [facility] Work Phone: Start: 06-20-2022 End: 07-05-2022 Humiliation, Afraid, Rape, and Kick questionnaire [HARK] [facility] Work Phone: Within the last year , have you been afraid of your partner or ex-partner? No [facility] Work Phone: Are you now , , , , never or living with a partner? [facility] Work Phone: How often to you hav e a drink containing alcohol? Never [facility] Work Phone: How many standard drinks containing alcohol do you have on a typical day? Patient does not drink [facility] Work Phone: Do you feel stress - tense, restless, nervous, or anxious, or unable to sleep at night because your mind is troubled all the time - these days [OSQ] Not at all [facility] Work Phone: (I/We) worried chance er (my/our) food would run out before (I/we) got money to buy more. Never true [facility] Work Phone: Start: 06-10-2022 End: 04-06-2024 Exposure to SARS-CoV-2 (event) Not sure [facility] Start: 10-24-2022 End: 08-23-2024 Alcohol intake Lifetime non-drinker (finding) [facility] Work Phone: How often to you hav e a drink containing alcohol? Monthly or less [facility] Work Phone: How many standard drinks containing alcohol do you have on a typical day? 1 or 2 [facility] Work Phone: Start: 11-07-2023 End: 11-17-2023 Exposure to SARS-CoV-2 (event) Unable to assess [facility] Do you feel stress - tense, restless, nervous, or anxious, or unable to sleep at night because your mind is troubled all the time - these days [OSQ] Only a little [facility] Work Phone: NEGATED: Highlighted row - - [facility] Work Phone: NEGATED: Highlighted rowStart: JUAN FF History of tobacco use Passive smoker [facility] Work Phone: Medical Equipment Procedure Code Equipment Code Equipment Origin al Text Equipment Identifier Dates Cement Simplex P Bone Radiopaque Full Dose Sterile - [id number] Start: 10-15-2023 Insert Triathlon 4 11mm Tibial Bearing Condylar Stabilize Sterile Knee - [id number] Start: 10-15-2023 Mesh Marlex 6x6 Flat Sh - [id number] Start: 10-15-2023 Functional Status Date Assessment Result Facility 08-23-2024 Geriatric depression scale (GDS).short version panel [facility] Work Phone: 08-23-2024 Total score [AUDIT-C] 0 08/24/19 25 11:07 AM Saima Mariano MD [facility] Work Phone: 10-18-2023 Are you deaf, or do you have serious difficulty hearing Yes 10/18/2023 3:07 PM Ryan Dang, RN Yes [facility] 10-18-2023 Are you blind, or do you have serious difficulty seeing, even when wearing glasses No 10/18/2023 3:07 PM Ryan Dang, RN No [facility] 10-18-2023 Do you have serious difficulty walking or climbing stairs Yes 10/18/2023 3:07 PM Ryan Dang, RN Yes [facility] 10-18-2023 Do you have difficul ty dressing or bathing Yes 10/18/2023 3:07 PM Ryan Dang, RN Yes [facility] 10-18-2023 Because of a physica l, mental, or emotional condition, do you have difficulty doing errands alone such as visiting a physician's office or shopping Yes 10/18/2023 3:07 PM EDT Ryan Gentile, RN Yes [facility] 08-21-2023 Functional Status Other: 7AM - 4PM [facility] 08-21-2023 [facility] Status Independent [facility] 08-21-2023 Functional Status Identified as high risk, Door open, Non-Slip footwear, Room check performed [facility] 08-21-2023 Functional Status [facility] 08-20-2023 Functional Status [facility] 08-20-2023 Functional Status Multilevel saji e, 1st floor bedroom, 1st floor bathroom [facility] 08-20-2023 Functional Status [facility] 08-20-2023 Functional Status [facility] 08-20-2023 Functional Status left thigh high [facility] 08-20-2023 Functional Status [facility] 08-19-2023 Functional Status Repositions self [facility] 08-19-2023 Functional Status Sensory Defici ts Hearing deficit, left ear, Hearing deficit, right ear [facility] 08-19-2023 Functional Status tension pillow in place [facility] 08-19-2023 Functional Status NPO Status Maintained A [facility] 08-19-2023 Functional Status [facility] Work Phone: NEGATED: Highlighted row Functional performance Functional status health issues are not documented Disease [facility] Work Phone: Mental Status Date Assessment Result Facility 09-16-2024 Cognitive function Voice/Name [facility] Work Phone: 10-18-2023 Because of a physical, mental, or emotional condition, do you have serious difficulty concentrating, remembering, or making decisions Yes 10/18/2023 3:07 PM EDT Ryan Gentile, RN Yes [facility] 08-21-2023 Mental Status Orientation Asse ssment Oriented x 4 [facility] 08-21-2023 Mental Status Oriented x 4 [facility] 08-20-2023 Mental Status [facility] NEGATED: Highlighted row Cognitive function [Interpretation] Cognitive status health issues are not documented Disease [facility] Work Phone: Clinical Notes 09-16-2020 to 09-16-2024 Jojo Gonzalez, (R) - 09/11/2024 11:20 AM EDTPatient Rachel House MD - 09/11/2024 10:20 AM EDTAssessment & Plan Note - Saima Mendoza MD - 08/23/2024 10:45 AM EDT Note Date & Type Note Facility 09-16-2024 Radiology Diagnostic study note [facility] Imaging Services [address] [place] [address] [id number] Knee 1 or 2 Views MR#: [id number] Acct: [id number] Name: LEDY CHING Rep #: [id number] : 1945 F 79 From: Aliya Camarillo MD PCP: OUT OF TOWN DOCTOR Status: ADM IN Study:Knee 1 or 2 Views Date of Exam: Exam# [id number] Ordering Dr: Rhianna Barnes MD PROCEDURE: KNEE 1 OR 2 VIEWS 09/16/2024 REASON FOR EXAM: FALL, L KNEE PAIN (HAS L BROKEN HIP) TECHNIQUE: KNEE 1 OR 2 VIEWS COMPARISON: No FINDINGS: Status post TKR. Intact hardware. Anatomic alignment. No fracture, dislocation, or joint effusion. RAD/Knee 1 or 2 Views IMPRESSION: No acute injury Reading Location: [facility] CC: Dr. Natali Barnes MD ~ Accounts Receivable Bookkeeper: Signed [facility] 09-16-2024 History and physi elias note [facility] 07-24-2025 Radiology Diagnostic study note [facility] Imaging Services [address] [place], [place] [id number] HIP, UNI W/ Pelvis 2-3 Views MR#: [id number] Acct: [id number] Name: LEDY CHING Rep #: [id number] : 1945 F 79 From: Roselyn Marcos MD PCP: OUT OF TOWN DOCTOR Status: REG ER Study:HIP, UNI W/ Pelvis 2-3 Views Date of Ex am: 09/16/24 Exam# [id number] Ordering Dr: Gerry Escalante MD PROCEDURE: HIP, UNI W/ PELVIS 2-3 VIEWS 09/16/2024 REASON FOR EXAM: PAIN, TRAUMA TECHNIQUE: HIP, UNI W/ PELVIS 2-3 VIEWS COMPARISON: CT of the left lower extremity on 04/18/2023 FINDINGS: There is a comminuted fracture of the left proximal femur with moderate angulation and involvement of the greater and lesser trochanters. The femoral head is located within the acetabulum. No additional displaced fracture identified on this limited evaluation. Mild joint space narrowing in both hips. Air-filled loops of bowelin the abdomen. RAD/HIP, UNI W/ Pelvis 2-3 Views IMPRESSION: Comminuted fracture of the left proximal femur with moderate angulation and involvement of both the lesser and greater trochanter. Recommend Orthopedic Surgery consultation. Reading Location: [facility] CC: Dr. Gerry Escalante MD ~ Accounts Receivable Bookkeeper: Signed [facility] 09-16-2024 Radiology Diagnostic study note [facility] Imaging Services [address] [place], [place] [id number] Chest 1 View (Portable) MR#: [id number] Acct: [id number] Name: LEDY CHING Rep #: [id number] : 1945 F 79 From: Roselyn Marcos MD PCP: OUT OF TOWN DOCTOR Status: REG ER Study:Chest 1 View (Portable) Date of Exam: 09/16/24 Exam# [id number] Ordering Dr: Gerry Escalante MD PROCEDURE: CHEST 1 VIEW (PORTABLE) 09/16/2024 REASON FOR EXAM: CAD TECHNIQUE: Frontal view of the chest. COMPARISON: Chest radiograph 04/17/2022 FINDINGS: Hardware: None Heart: Heart size is moderately enlarged, unchanged. Lungs: There are subtle hazy opacity throughout the right lung, predominantly atthe periphery. Bones: Rightward curvature of the thoracic spine. Degenerative changes of the shoulders and spine. RAD/Chest 1 View (Portable) IMPRESSION: Subtle hazy opacity over the right lung may be artifactual, though layering pleural effusion or infection could also appear similar. Reading Location: [facility] CC: Dr. Gerry Escalante MD ~ Accounts Receivable Bookkeeper: Signed [facility] 09-16-2024 Radiology Diagnostic study note [facility] Imaging Services [address] [place], [place] [id number] Brain/Head without Contrast MR#: [id number] Acct: [id number] Name: LEDY CHING Rep #: [id number] : 1945 F 79 From: Micah Arias MD PCP: OUT OF TOWN DOCTOR Status: REG ER Study:Brain/Head without Contrast Date of Exa m: 09/16/24 Exam# [id number] Ordering Dr: Gerry Escalante MD EXAM: BRAIN/HEAD WITHOUT CONTRAST; SPINE CERVICAL WITHOUT CONTRAS CLINICAL HISTORY: TRAUMA; PAIN COMPARISON: CT head and cervical spine 04/17/2022 TECHNIQUE: Noncontrast images of the head and cervical spine with multiplanar reconstructions. Dose reduction techniques were used including intermediate exposure control (AEC),iterative reconstruction technique, and/or mA and/or KV dose adjustments based on patient's size. FINDINGS: HEAD: No acute intracranial hemorrhage, extra-axial collection, mass effect or evidence of acute infarct. Moderate generalized brain parenchymal volume loss, and chronic microangiopathicchanges. Atherosclerotic vascular calcifications, and age-related mineralization in the bilateral basal ganglia. Absent [place] ocular lenses. Intact skull base and calvarium. Clear sinuses and mastoids. CERVICAL SPINE: No acute fracture or subluxation. Straightening of the cervical lordosis is likely positional and/or degenerative in nature. Moderate multilevel spondylotic changes with varying degrees of disc space narrowing, endplate sclerosis, anterior osteophytosis, multiple small Schmorl's nodes/subchondral cysts, uncovertebral spurring and hypertrophic facet arthropathy. Moderate arthrosis of the right C1-2 lateral mass articulation. No prevertebral soft tissue swelling. Atherosclerotic vascular calcifications. CT/Brain/Head without Contrast IMPRESSION: 1. No acute intracranial or cervical spine traumatic findings. 2. Moderate brain parenchymal volume loss and chronic microangiopathic changes. 3. Moderate multilevel cervical spondylotic changes. Reading Location: [facility] CC: Dr. Gerry Escalante MD ~ Accounts Receivable Bookkeeper: Signed [facility] 09-16-2024 Radiology Diagnostic study note [facility] Imaging Services [address] [place], [place] [address] Spine Cervical without Contras MR#: [id number] Acct: [id number] Name: LEDY CHING Rep #: [id number] : 1945 F 79 From: Micah Arias MD PCP: OUT OF TOWN DOCTOR Status: REG ER Study:Spine Cervical without Contras Date of Exam: 09/16/24 Exam# [id number] Ordering Dr: Gerry Escalante MD EXAM: BRAIN/HEAD WITHOUT CONTRAST; SPINE CERVICAL WITHOUT CONTRAS CLINICAL HISTORY: TRAUMA; PAIN COMPARISON: CT head and cervical spine 04/17/2022 TECHNIQUE: Noncontrast images of the head and cervical spine with multiplanar reconstructions. Dose reduction techniques were used including intermediate exposure control (AEC),iterative reconstruction technique, and/or mA and/or KV dose adjustments based on patient's size. FINDINGS: HEAD: No acute intracranial hemorrhage, extra-axial collection, mass effect or evidence of acute infarct. Moderate generalized brain parenchymal volume loss, and chronic microangiopathicchanges. Atherosclerotic vascular calcifications, and age-related mineralization in the bilateral basal ganglia. Absent [place] ocular lenses. Intact skull base and calvarium. Clear sinuses and mastoids. CERVICAL SPINE: No acute fracture or subluxation. Straightening of the cervical lordosis is likely positional and/or degenerative in nature. Moderate multilevel spondylotic changes with varying degrees of disc space narrowing, endplate sclerosis, anterior osteophytosis, multiple small Schmorl's nodes/subchondral cysts, uncovertebral spurring and hypertrophic facet arthropathy. Moderate arthrosis of the right C1-2 lateral mass articulation. No prevertebral soft tissue swelling. Atherosclerotic vascular calcifications. CT/Spine Cervical without Contras IMPRESSION: 1. No acute intracranial or cervical spine traumatic findings. 2. Moderate brain parenchymal volume loss and chronic microangiopathic changes. 3. Moderate multilevel cervical spondylotic changes. Reading Location: [id number] CC: Dr. Gerry Escalante MD ~ Accounts Receivable Bookkeeper: Signed [facility] 09-11-2024 History of Present illness Narrative Radiology Service Progress Note PATIENT NAME: Ledy Ching DATE OF SERVICE: September 11, 2024 TIME: 11:54 AM PATIENT IDENTITY VERIFICATION COMPLETED USING TWO (2) IDENTIFIERS: Name and Date of confirmed by patient verbally. FALL SCREENING: Has the patient had 2 falls in the last year or 1 fall with injury or currently using an Ambulatory Assistive Device (Walker, Cane, Wheelchair, Crutches, etc.)? Yes, Patient High Risk for Falls What interventions were put in place to prevent falls during this visit? Instructed Patient to Call for Help if Needed, Offered Assistance with Transfers/Clothing, Instructed Patient to Remain Seated (Not on Exam Table) Until Exam, and Increased Observations by Caregivers PATIENT GENDER DATA: Assigned female at . status: : No status: NO. PATIENT RELEVANT IMPLANT DATA REVIEWED: Yes PATIENT PRESENTS WITH AN IMPLANTABLE OR ATTACHED SUPERVISOR FILES: No RADIOLOGY DEPARTMENT: General X-ray: Exam(s) Completed: Lower Extremity X-Ray(s): Knee, AP / Lat / Tunne / Merchant Left Upper Extremity X-Ray(s): Shoulder, AP / TRUE AP / AXILLARY right PERIPHERAL IV DATA: Not applicable SIGNED BY: RT Bairon(R) September 11, 2024 11:54 AM documented in this encounter [facility] 09-11-2024 Note HNO ID: [id number] Author: JOJO GONZALEZ RT(R) Service: ? Author Type: Assistant Professor Of Music Type: Progress Notes Filed: 09/11/2024 11:55 Note Text: Radiology Service Progress Note PATIENT NAME: Ledy Ching DATE OF SERVICE: September 11, 2024 TIME: 11:54 AM PATIENT IDENTITY VERIFICATION COMPLETED USING TWO (2) IDENTIFIERS: Name and Date of confirmed by patient verbally. FALL SCREENING: Has the patient had 2 falls in the last year or 1 fall with injury or currently using an Ambulatory Assistive Device (Walker, Cane, Wheelchair, Crutches, etc.)? Yes, Patient High Risk for Falls What interventions were put in place to prevent falls during this visit? Instructed Patient to Call for Help if Needed, Offered Assistance with Transfers/Clothing, Instructed Patient to Remain Seated (Not on Exam Table) Until Exam, and Increased Observations by Caregivers PATIENT GENDER DATA: Assigned female at . status: : No status: NO. PATIENT RELEVANT IMPLANT DATA REVIEWED: Yes PATIENT PRESENTS WITH AN IMPLANTABLE OR ATTACHED SUPERVISOR FILES: No RADIOLOGY DEPARTMENT: General X-ray: Exam(s) Completed: Lower Extremity X-Ray(s): Knee, AP / Lat / Tunne / Merchant Left Upper Extremity X-Ray(s): Shoulder, AP / TRUE AP / AXILLARY right PERIPHERAL IV DATA: Not applicable SIGNED BY: RT Bairon(R) September 11, 2024 11:54 AM [facility] 09-11-2024 Instructions Rachel Frazier MD - 09/11/2024 10:38 AM EDT Images from the original note were not included. Please get xrays done of your knee and shoulder. Continue home physical therapy exercises. Please see orthopedics for your knee. Please get an A1c level two days before your next visit. Please keep a log of your blood pressure and bring to your next visit. PREVENTIVE CARDIOLOGY Home Blood Pressure Monitoring The 2017 High Blood Pressure Clinical Practice Guidelines, endorsed by the [place] [employer] and the [place] [employer] Association1, place a special emphasis on home blood pressure monitoring. The measurements obtained at home are likely a more accurate reflection of your actual blood pressure and ultimately your risk of adverse cardiovascular events (strokes, heart attacks, heart failure.) With this in mind, we recommend checking your blood pressure (BP) and heart rate (HR) and writing down the readings and the time of day. Ideally you would check your BP multiple times as we adjust your medications. In the future we may be able to decrease the number of times that you are checking, based on the stability of your readings. You should try to measure your blood pressure in the morning, before taking your blood pressure medications. You may check occasionally in the evening as well. When you are ready to begin checking your BP, try to relax by counting to 90. Press the start button on the machine. Count to 60 between each recording and take 2 or 3 consecutive measurements. BP & HR LOG EXAMPLE DATE TIME Blood Pressure Heart Rate eg. Sep 6:40 am 146/87 62 144/85 62 143/83 63 eg. Sep Morning 133/77 69 130/85 59 130/86 62 Correctly Checking Your Blood Pressure Buy a BP machine with a cuff that goes around the upper arm and not the wrist. Ensure you have the correct size cuff based on your arm circumference. Below is a table taken directly from the 2017 High Blood Pressure Guidelines.1 Arm Circumference Usual Cuff Size 22-26 cm Small adult 27-34 cm Adult 35-44 cm Large adult 45-52 cm Adult thigh Not all BP machines are accurate, but most are. The more expensive units have extra features (Bluetooth etc.) that can make it easier to record your readings, but are not necessarily more accurate than the simpler machines. Your machine should be brought to your doctor every 1 to 2 years to be checked for accuracy To take a BP reading correctly, go into a quiet area. Sit in a chair with your feet flat on the ground and back supported (without crossing your legs.) Your arm should be at the level of the heart and supported (do not hold it in the air). Resting your arm on the kitchen table is often an appropriate height. Put the BP cuff on and try to relax for 1 minute before pressing the button. Remain quiet. Take multiple readings and wait 30 seconds between each one. Most machines will record the values so you can write them down after measuring. Review of Home Blood Pressure Monitoring Results If changes have been made to your blood pressure medication treatment plan, we encourage you to monitor your blood pressures at home and submit them for our review. Based on your self-recorded measurements we can make adjustments to medications between office visits if needed. To accurately assess your blood pressure control outside of the office, please ensure that you are using a device that has been validated for clinical accuracy. Additionally, we encourage you to follow the above instructions on accurate home blood pressures measurement. So that we have enough data upon which to based clinical changes, we ask that you submit a minimum of 12 blood pressure readings for our review via [employer] (or by other means if instructed by your healthcare provider.) 1. Augustin et al. J Am Vernell Cardiol. 2018 July 08;71(19):[id number]-[id number]. documented in this encounter [facility] 09-11-2024 History of Present illness Narrative Images from the original note were not included. Family Medicine OUTPATIENT VISIT September 10, 2024 CC: Annual physical HPI: 79 year old female patient with a history of HTN on amlodipine 10, coreg 12.5 BID, HCTZ 50, lisinopril 40 HLD on simvastatin last LDL 77 on 08/18 OA on meloxicam 15 and tylenol 1250mg daily S/p left knee replacement 2023 Osteopenia on vitamin D and calcium GERD on omeprazole 40 Depression on paroxetine 20 Primary prevention on asa Insomnia on trazadone Prediabetes last A1c 6 on 10/17. Chronic neck and shoulder pain. Presents to establish care. Depression: Mood is good. Took BP meds this AM but not been using her BP cuff at home. Continues to have left knee weakness without pain despite replacement last year. Notes it is sometimes mildly erythematous. Denies fevers or chills. Did complete PT and this did help with the weakness but did not resolve it. Denies falls. Does take NSAIDS and tylenol which help. Endorses crepitations and clicking. Has not been following with ortho recently. Review of Systems PAIN ASSESSMENT: Negative for pain, history of chronic pain, or current treatment for a chronic pain condition except chronic knee pain and neck pain. GENERAL: No weight loss, or fevers HEENT: Negative for frequent or significant headaches RESPIRATORY: Negative for cough, wheezing, shortness of breath CARDIOVASCULAR: Negative for chest pain, palpitations, PND or orthopnea GI: No nausea, vomiting, or diarrhea or abdominal pain. No MT bleeding or melana : No history of dysuria, frequency, urgency, or change in urine appearance NEURO: No history of headaches, numbness, weakness, or changes to vision or hearing Health maintenance: RSV Vaccine(1 - 1-dose 75+ series) Never done DTaP,Tdap,Td Vaccine(3 - Tdap) due on 06/27/2022 Medicare Advantage Annual Wellness Visit Never done Allergies: ALLERGIES No Known Allergies Medications: aspirin 81 mg cap Take by mouth once daily. TAKES A PREVENTATIVE/ PACC appoint. 10/08/23, pt states PCP/ Dr. Saima Mendoza does not want her to stop taiking; instructed to inform Dr. Tracy acetaminophen (TYLENOL) 500 mg tablet Take 500 mg by mouth two times a day. carvedilol (COREG) 3.125 mg tablet Take 12.5 mg by mouth two times a day with meals. PACC appoint. Pt states she only takes 1 x day (Patient taking differently: Take 3.125 mg by mouth once daily. PACC appoint. Pt states she only takes 1 x day) calcium carbonate (CALTRATE) 600 mg calcium (1,500 mg) tab Take by mouth. STOPPED FOR SURGERY LAST DOSE 09/30 ascorbic acid, vitamin C, (VITAMIN C) 500 mg tablet Take by mouth. STOPPED FOR SURGERY 09/30 LAST DOSE Cholecalciferol, Vitamin D3, 50 mcg (2,000 unit) cap Take by mouth. STOPPED FOR SURGERY LAST DOSE 09/30 lisinopril (ZESTRIL, PRINIVIL) 40 mg tablet Take 40 mg by mouth every morning. omeprazole (PRILOSEC) 40 mg capsule Take 40 mg by mouth every evening. hydroCHLOROthiazide (HYDRODIURIL, ESIDRIX) 50 mg tablet Take 50 mg by mouth every morning. amLODIPine (NORVASC) 10 mg tablet every morning. vitamin A (AQUASOL A) 10,000 unit capsule Take by mouth. STOPPED 09/30 FOR SURGERY traZODone (DESYREL) 100 mg tablet Take 100 mg by mouth daily at bedtime. meloxicam (MOBIC) 15 mg tablet Take 15 mg by mouth once daily. STOPPED FOR SURGERY 10/01/23 simvastatin 20 mg tablet Take 20 mg by mouth daily at bedtime. paroxetine 20 mg tablet Take 20 mg by mouth every morning. Past Medical History: PAST MEDICAL HISTORY Diagnosis Date Arthritis Depression Diverticulitis Diverticulosis GERD (gastroesophageal reflux disease) H/O cervical fracture High cholesterol Hypertension Insomnia Social History: Social History Tobacco Use Smoking status: Never Passive exposure: Never Substance Use Topics Alcohol use: No Drug use: Never Family History: Family History Problem Relation Age of Onset Heart disease Mother Hypertension Mother Cancer Father Diabetes Sister Diabetes Brother Arthritis Paternal Grandmother Heart disease Paternal Grandfather BP 134/82 Pulse 71 Resp 12 Ht 158.8 cm (5' 2.5) Wt 66.5 kg (146 lb 9.6 oz) SpO2 94% BMI 26.39 kg/m General: Awake, alert, not in acute distress PRESS SUPERVISOR: Answering questions appropriately. No abnormal posturing or positioning. Speech is normal. Strength grossly intact. RESP: Clear lungs bilateral with good air entry, No increased work of breathing CVS: RRR, No murmur. Pulses 2+. GI: Abdomen is soft, non distended, non tender. No masses or hepatomegaly appreciated. Skin/Other: No rashes or lesions. HEENT: pupils equal Extremities: No peripheral edema, swelling or erythema of lower extremities. Mild effusion of left knee. Crepitus without reduced ROM or pain with active or passive motion. Right knee exam normal. Right shoulder non tender to palpation thoughout but reduced ROM on shoulder abduction and flexion. Labs: Reviewed the following: Pertinent labs as outlined above Imaging: Reviewed the following: Reviewed recent pertinent imaging Assessment/Plan: ASSESSMENT/PLAN: 1. Annual physical exam - ICD9: V70.0, ICD10: Z00.00 (primary diagnosis) - Counseled on healthy diet and regular exercise - Patient counseled on and acknowledged vaccine benefits/risks/side effects; VIS provided: DTaP and RSV - ADVANCE CARE PLAN DISCUSSION 2. Encounter for screening examination for other mental health and behavioral disorders - ICD9: V79.8, ICD10: Z13.39 Well controlled - ANXIETY SCREENING 3. Encounter for immunization - ICD9: V03.89, ICD10: Z23 - RSV PRINTED PHARMACY INSTRUCTIONS - TDAP PRINTED PHARMACY INSTRUCTIONS 4. Encounter for health-related screening - ICD9: V82.9, ICD10: Z13.9 Due for screening - HEMOGLOBIN A1C 5. Chronic right shoulder pain - ICD9: 719.41, 338.29, ICD10: M25.511, G89.29 Chronic R shoulder pain with reduced ROM. Suspect OA vs rotator cuff pathology. - XR SHOULDER GENERAL 3V OR MORE AP/TRUE AP/OTHER RIGHT -declines PT. Using NSAIDS and tylneol. Counselled on avoiding overuse. 6. Knee locking, left - ICD9: 717.9, ICD10: M23.92 Knee weakness without pain or fever s/p knee replacement. Low suspicion for infection given no fevers and stable symptoms over course of year and no systemic illness. - XR KNEE GENERAL 4V AP BOTH/PA BOTH/LAT/MERC LEFT - CONSULT TO ORTHOPAEDICS 7. Primary hypertension - ICD9: 401.9, ICD10: I10 - Uncontrolled - Continue current medications - Recommend home blood pressure monitoring, to bring results to next visit - Encouraged sodium restriction, DASH or Mediterranean diet - Recommend regular aerobic exercise -If home BP log above goal, will adjust medication regimen at next visit Rachel Frazier Remainder of plan including medications to be continued as prior to this visit unless noted above. I will reach out if lab testing or imaging is abnormal and requires a change in the plan discussed above. Otherwise, we can review results at follow up. I discussed this with the patient and they are in agreement. Discussed with patient the importance of continuity of care. Follow up appointments as scheduled below. We discussed returning sooner if symptoms should worsen or not improve as expected as discussed during our appointment. Symptoms that should prompt escalation of care that we discussed include severe joint pain and fevers Rachel Frazier MD Internal Medicine and Pediatrics [facility] 09/11/2024 12:30 PM Portions of note generated prior to visit. History of illness, past medical and surgical history, family and social history, medications, allergies, labs and imaging reviewed during visit and are updated as appropriate following visit. I spent 30 minutes in the visit, with more than 50% of the total [id number] time of the visit in counseling / coordination of care. Future Appointments Date Time Provider Department Center 11/12/2024 1:00 PM Rachel Frazier MD [facility] documented in this encounter [facility] 09-11-2024 Note HNO ID: [id number] Author: RACHEL FRAZIER MD Service: ? Author Type: Physician Type: Progress Notes Filed: 09/11/2024 12:33 Note Text: Family Medicine OUTPATIENT VISIT September 10, 2024 CC: Annual physical HPI: 79 year old female patient with a history of HTN on amlodipine 10, coreg 12.5 BID, HCTZ 50, lisinopril 40 HLD on simvastatin last LDL 77 on 08/18 OA on meloxicam 15 and tylenol 1250mg daily S/p left knee replacement 2023 Osteopenia on vitamin D and calcium GERD on omeprazole 40 Depression on paroxetine 20 Primary prevention on asa Insomnia on trazadone Prediabetes last A1c 6 on 10/17. Chronic neck and shoulder pain. Presents to establish care. Depression: Mood is good. Took BP meds this AM but not been using her BP cuff at home. Continues to have left knee weakness without pain despite replacement last year. Notes it is sometimes mildly erythematous. Denies fevers or chills. Did complete PT and this did help with the weakness but did not resolve it. Denies falls. Does take NSAIDS and tylenol which help. Endorses crepitations and clicking. Has not been following with ortho recently. Review of Systems PAIN ASSESSMENT: Negative for pain, history of chronic pain, or current treatment for a chronic pain condition except chronic knee pain and neck pain. GENERAL: No weight loss, or fevers HEENT: Negative for frequent or significant headaches RESPIRATORY: Negative for cough, wheezing, shortness of breath CARDIOVASCULAR: Negative for chest pain, palpitations, PND or orthopnea GI: No nausea, vomiting, or diarrhea or abdominal pain. No MT bleeding or melana : No history of dysuria, frequency, urgency, or change in urine appearance NEURO: No history of headaches, numbness, weakness, or changes to vision or hearing Health maintenance: RSV Vaccine(1 - 1-dose 75+ series) Never done DTaP,Tdap,Td Vaccine(3 - Tdap) due on 06/27/2022 Medicare Advantage Annual Wellness Visit Never done Allergies: ALLERGIES No Known Allergies Medications: aspirin 81 mg cap Take by mouth once daily. TAKES A PREVENTATIVE/ PACC appoint. 10/08/23, pt states PCP/ Dr. Saima Mendoza does not want her to stop taiking; instructed to inform Dr. Tracy acetaminophen (TYLENOL) 500 mg tablet Take 500 mg by mouth two times a day. carvedilol (COREG) 3.125 mg tablet Take 12.5 mg by mouth two times a day with meals. PACC appoint. Pt states she only takes 1 x day (Patient taking differently: Take 3.125 mg by mouth once daily. PACC appoint. Pt states she only takes 1 x day) calcium carbonate (CALTRATE) 600 mg calcium (1,500 mg) tab Take by mouth. STOPPED FOR SURGERY LAST DOSE 09/30 ascorbic acid, vitamin C, (VITAMIN C) 500 mg tablet Take by mouth. STOPPED FOR SURGERY 09/30 LAST DOSE Cholecalciferol, Vitamin D3, 50 mcg (2,000 unit) cap Take by mouth. STOPPED FOR SURGERY LAST DOSE 09/30 lisinopril (ZESTRIL, PRINIVIL) 40 mg tablet Take 40 mg by mouth every morning. omeprazole (PRILOSEC) 40 mg capsule Take 40 mg by mouth every evening. hydroCHLOROthiazide (HYDRODIURIL, ESIDRIX) 50 mg tablet Take 50 mg by mouth every morning. amLODIPine (NORVASC) 10 mg tablet every morning. vitamin A (AQUASOL A) 10,000 unit capsule Take by mouth. STOPPED 09/30 FOR SURGERY traZODone (DESYREL) 100 mg tablet Take 100 mg by mouth daily at bedtime. meloxicam (MOBIC) 15 mg tablet Take 15 mg by mouth once daily. STOPPED FOR SURGERY 10/01/23 simvastatin 20 mg tablet Take 20 mg by mouth daily at bedtime. paroxetine 20 mg tablet Take 20 mg by mouth every morning. Past Medical History: PAST MEDICAL HISTORY Diagnosis Date Arthritis Depression Diverticulitis Diverticulosis GERD (gastroesophageal reflux disease) H/O cervical fracture High cholesterol Hypertension Insomnia Social History: Social History Tobacco Use Smoking status: Never Passive exposure: Never Substance Use Topics Alcohol use: No Drug use: Never Family History: Family History Problem Relation Age of Onset Heart disease Mother Hypertension Mother Cancer Father Diabetes Sister Diabetes Brother Arthritis Paternal Grandmother Heart disease Paternal Grandfather BP 134/82 Pulse 71 Resp 12 Ht 158.8 cm (5' 2.5) Wt 66.5 kg (146 lb 9.6 oz) SpO2 94% BMI 26.39 kg/m? General: Awake, alert, not in acute distress PRESS SUPERVISOR: Answering questions appropriately. No abnormal posturing or positioning. Speech is normal. Strength grossly intact. RESP: Clear lungs bilateral with good air entry, No increased work of breathing CVS: RRR, No murmur. Pulses 2+. GI: Abdomen is soft, non distended, non tender. No masses or hepatomegaly appreciated. Skin/Other: No rashes or lesions. HEENT: pupils equal Extremities: No peripheral edema, swelling or erythema of lower extremities. Mild effusion of left knee. Crepitus without reduced ROM or pain with active or passive motion. Right knee exam normal. Right shoulder non tender to (more content not included)... [facility] 08-23-2024 Evaluation + Plan note Associated Problem(s): Full code status CODE STATUS was discussed with the patient today and they wish to be a full code. Patient understands that this may include CPR, cardioversion, intubation and ventilation if necessary. [facility] Work Phone: 08-23-2024 Evaluation + Plan note Associated Problem(s): Hypertension Hypertension is stable well-controlled. Patient did not need refills today [facility] Work Phone: 08-23-2024 Evaluation + Plan note Associated Problem(s): Hypercholesterolemia Annual blood work was reviewed with the patient today. Liver enzymes are good and she will stay on simvastatin 20 mg daily to help control her LDL cholesterol. [facility] Work Phone: 08-23-2024 Evaluation + Plan note Associated Problem(s): Cardiac risk counseling Cardiovascular risk discussed and, if needed, lifestyle modifications recommended, including nutritional choices, exercise, and elimination of habits contributing to risk. We agreed on a plan to reduce the current cardiovascular risk. Aspirin use/disuse was discussed after reviewing updated guidelines. Greater than 15 min in addition to visit time was spent in discussion and education of patient. Current 10-year risk is at 29.9% ASCVD Patient is already taking a baby aspirin daily. [facility] Work Phone: 08-23-2024 Evaluation + Plan note Associated Problem(s): GERD (gastroesophageal reflux disease) Patient denies any breakthrough heartburn symptoms recently. She remains on omeprazole 40 mg daily [facility] Work Phone: 08-23-2024 Evaluation + Plan note Associated Problem(s): Wellness examination Annual wellness visit completed today. Patient remains independent in almost all of her ADLs and IADLs. She is now using a walker because of problems with her knees and lower back and is very frustrated because of it. She did score an 11 on the depression screen but most of it she says is because she is down because of her lack of activity and decreased independence. She does not want to change anything for her depression other than continuing her paroxetine 20 mg daily Both advance care planning and 10-year ASCVD risk were reviewed in depth with the patient today Safety measures have all been met in the home [facility] Work Phone: 08-23-2024 Evaluation + Plan note Associated Problem(s): ACP (advance care planning) Approximately 17 minutes were spent on advance care planning. Patient currently does not have a living will or power of mergers and acquisitions attorney for healthcare so she was given information about how to get 1 completed through either an mergers and acquisitions attorney or the [email or web address] website Although she currently does not have a power of mergers and acquisitions attorney she would want her Barney to be her power of mergers and acquisitions attorney first followed by her son Av Lewis and her second alternate would be her other son John Lewis. Patient remains a full code and says she is willing to have event, trach or tube feed if necessary however she wants to have an outcome with significant mental capacity or alertness. She says her mental capacity is very important to her. She does not want to be bedbound and physical ability would be also important. If she was in an accident and left is a quadriplegic even if 100% alert she said she would rather be let go [facility] Work Phone: 08-23-2024 Evaluation + Plan note Associated Problem(s): Current moderate episode of major depressive disorder (Multi) Patient scored an 11 on her depression screen and is already on Paxil or paroxetine 20 mg daily. I suggested upping it but she declines at this time. A lot of her depression is out of frustration from not being as independent and using a walker which she is still getting used to [facility] Work Phone: 08-23-2024 Evaluation + Plan note Associated Problem(s): Insomnia Patient has a lot of insomnia but says some of it is just related to pain and cannot sleep at night. She often takes 2 Tylenol before bed to help her sleep. I have recommended she switch to Tylenol PM at night to see if it helps both with sleep and with the pain. Patient said she will try this [facility] Work Phone: 08-23-2024 Evaluation + Plan note Associated Problem(s): Hyperlipidemia [facility] Work Phone: 08-23-2024 History of Present illness Narrative Subjective Reason for Visit: Ledy Ching is an 79 y.o. female here for a Medicare Wellness visit. Past Medical, Surgical, and Family History reviewed and updated in chart. Reviewed all medications by prescribing practitioner or clinical pharmacist (such as prescriptions, OTCs, herbal therapies and supplements) and documented in the medical record. Patient is here for annual wellness visit as well as management of her medical problems including hypertension high cholesterol depression and medication management. Both advance care planning and cardiac risk assessment were reviewed in detail with the patient today. Patient was given information about how to get a living well power of mergers and acquisitions attorney since she currently did not have 1. Because of her advancing age she has elected to not have a mammogram at this time and has also aged out of colonoscopies. Patient Care Team: Saima Mendoza MD as PCP - General Saima Mendoza MD as PCP - [employer] Medicare Advantage PCP Panda Robles MD as Consulting Physician (Gastroenterology) Review of Systems Constitutional: Negative for fatigue and fever. HENT: Negative for sore throat and trouble swallowing. Eyes: Negative for visual disturbance. Respiratory: Negative for cough and shortness of breath. Cardiovascular: Negative for chest pain, palpitations and leg swelling. Gastrointestinal: Negative for abdominal pain, constipation, diarrhea, nausea and vomiting. Genitourinary: Negative for dysuria and frequency. Musculoskeletal: Negative for arthralgias. Skin: Negative for rash. Neurological: Negative for dizziness and light-headedness. Objective Vitals: BP 126/70 Pulse 58 Ht 1.651 m (5' 5) Wt 66.5 kg (146 lb 9.6 oz) SpO2 93% BMI 24.40 kg/m Physical Exam Constitutional: Appearance: Normal appearance. [...] edema. Neurological: Mental Status: She is alert. Assessment & Plan Asymptomatic menopausal state Orders: XR DEXA bone density; Future Full code status CODE STATUS was discussed with the patient today and they wish to be a full code. Patient understands that this may include CPR, cardioversion, intubation and ventilation if necessary. Primary hypertension Hypertension is stable well-controlled. Patient did not need refills today Mixed hyperlipidemia Hypercholesterolemia Annual blood work was reviewed with the patient today. Liver enzymes are good and she will stay on simvastatin 20 mg daily to help control her LDL cholesterol. Gastroesophageal reflux disease without esophagitis Patient denies any breakthrough heartburn symptoms recently. She remains on omeprazole 40 mg daily Wellness examination Annual wellness visit completed today. Patient remains independent in almost all of her ADLs and IADLs. She is now using a walker because of problems with her knees and lower back and is very frustrated because of it. She did score an 11 on the depression screen but most of it she says is because she is down because of her lack of activity and decreased independence. She does not want to change anything for her depression other than continuing her paroxetine 20 mg daily Both advance care planning and 10-year ASCVD risk were reviewed in depth with the patient today Safety measures have all been met in the home ACP (advance care planning) Approximately 17 minutes were spent on advance care planning. Patient currently does not have a living will or power of mergers and acquisitions attorney for healthcare so she was given information about how to get 1 completed through either an mergers and acquisitions attorney or the [email or web address] website Although she currently does not have a power of mergers and acquisitions attorney she would want her Barney to be her power of mergers and acquisitions attorney first followed by her son Av Lewis and her second alternate would be her other son John Lewis. Patient remains a full code and says she is willing to have event, trach or tube feed if necessary however she wants to have an outcome with significant mental capacity or alertness. She says her mental capacity is very important to her. She does not want to be bedbound and physical ability would be also important. If she was in an accident and left is a quadriplegic even if 100% alert she said she would rather be let go Current moderate episode of major depressive disorder without prior episode (Multi) Patient scored an 11 on her depression screen and is already on Paxil or paroxetine 20 mg daily. I suggested upping it but she declines at this time. A lot of her depression is out of frustration from not being as independent and using a walker which she is still getting used to Primary insomnia Patient has a lot of insomnia but says some of it is just related to pain and cannot sleep at night. She often takes 2 Tylenol before bed to help her sleep. I have recommended she switch to Tylenol PM at night to see if it helps both with sleep and with the pain. Patient said she will try this Cardiac risk counseling Cardiovascular risk discussed and, if needed, lifestyle modifications recommended, including nutritional choices, exercise, and elimination of habits contributing to risk. We agreed on a plan to reduce the current cardiovascular risk. Aspirin use/disuse was discussed after reviewing updated guidelines. Greater than 15 min in addition to visit time was spent in discussion and education of patient. Current 10-year risk is at 29.9% ASCVD Patient is already taking a baby aspirin daily. documented in this encounter [facility] Work Phone: 08-23-2024 Instructions Saima Mendoza MD - 08/23/2024 10:45 AM EDT Try 2 tylenol PM at bedtime instead of tylenol arthritis Advanced directives were discussed at your appointment today. It is recommended that you obtain and complete a living will and D POA (DURABLE POWER OF BRIDGE WORKER APPRENTICE for healthcare). You can complete these documents with an mergers and acquisitions attorney if you have 1 or go to the website: [email or web address]. Please search the word living will and will take you directly to the form. Once you have completed these documents you can bring a copy to our office so we can add it to your medical record. Get dxa after 11/09/[address] Mendoza in 4 months for HTN etc 30 min appointment documented in this encounter [facility] Work Phone: 08-23-2024 Miscellaneous Notes Associated Problem(s): Full code status CODE STATUS was discussed with the patient today and they wish to be a full code. Patient understands that this may include CPR, cardioversion, intubation and ventilation if necessary. Associated Problem(s): Hypertension Hypertension is stable well-controlled. Patient did not need refills today Associated Problem(s): Hypercholesterolemia Annual blood work was reviewed with the patient today. Liver enzymes are good and she will stay on simvastatin 20 mg daily to help control her LDL cholesterol. Associated Problem(s): Cardiac risk counseling Cardiovascular risk discussed and, if needed, lifestyle modifications recommended, including nutritional choices, exercise, and elimination of habits contributing to risk. We agreed on a plan to reduce the current cardiovascular risk. Aspirin use/disuse was discussed after reviewing updated guidelines. Greater than 15 min in addition to visit time was spent in discussion and education of patient. Current 10-year risk is at 29.9% ASCVD Patient is already taking a baby aspirin daily. Associated Problem(s): GERD (gastroesophageal reflux disease) Patient denies any breakthrough heartburn symptoms recently. She remains on omeprazole 40 mg daily Associated Problem(s): Wellness examination Annual wellness visit completed today. Patient remains independent in almost all of her ADLs and IADLs. She is now using a walker because of problems with her knees and lower back and is very frustrated because of it. She did score an 11 on the depression screen but most of it she says is because she is down because of her lack of activity and decreased independence. She does not want to change anything for her depression other than continuing her paroxetine 20 mg daily Both advance care planning and 10-year ASCVD risk were reviewed in depth with the patient today Safety measures have all been met in the home Associated Problem(s): ACP (advance care planning) Approximately 17 minutes were spent on advance care planning. Patient currently does not have a living will or power of mergers and acquisitions attorney for healthcare so she was given information about how to get 1 completed through either an mergers and acquisitions attorney or the [email or web address] website Although she currently does not have a power of mergers and acquisitions attorney she would want her Barney to be her power of mergers and acquisitions attorney first followed by her son Av Lewis and her second alternate would be her other son John Lewis. Patient remains a full code and says she is willing to have event, trach or tube feed if necessary however she wants to have an outcome with significant mental capacity or alertness. She says her mental capacity is very important to her. She does not want to be bedbound and physical ability would be also important. If she was in an accident and left is a quadriplegic even if 100% alert she said she would rather be let go Associated Problem(s): Current moderate episode of major depressive disorder (Multi) Patient scored an 11 on her depression screen and is already on Paxil or paroxetine 20 mg daily. I suggested upping it but she declines at this time. A lot of her depression is out of frustration from not being as independent and using a walker which she is still getting used to Associated Problem(s): Insomnia Patient has a lot of insomnia but says some of it is just related to pain and cannot sleep at night. She often takes 2 Tylenol before bed to help her sleep. I have recommended she switch to Tylenol PM at night to see if it helps both with sleep and with the pain. Patient said she will try this Associated Problem(s): Hyperlipidemia documented in this encounter [facility] Work Phone: 04-06-2024 Evaluation + Plan note Associated Problem(s): Current moderate episode of major depressive disorder (Multi) Patient admits her depression is slightly worse because she is frustrated with her inability to go up and down stairs and make all of her normal movements. We discussed upping her dose but she is decided to stay on her current dose and not make any changes [facility] Work Phone: 04-06-2024 Miscellaneous Notes Associated Problem(s): Current moderate episode of major depressive disorder (Multi) Patient admits her depression is slightly worse because she is frustrated with her inability to go up and down stairs and make all of her normal movements. We discussed upping her dose but she is decided to stay on her current dose and not make any changes Associated Problem(s): GERD (gastroesophageal reflux disease) Patient's reflux symptoms are stable with the omeprazole 40 mg daily. Associated Problem(s): Hyperlipidemia Annual blood work is due in May and she was given a requisition. She will remain on simvastatin 20 mg daily in the interim Associated Problem(s): Hypertension Blood pressure stable and well-controlled and she did not need refills today. documented in this encounter [facility] Work Phone: 04-06-2024 Evaluation + Plan note Associated Problem(s): GERD (gastroesophageal reflux disease) Patient's reflux symptoms are stable with the omeprazole 40 mg daily. [facility] Work Phone: 04-06-2024 Evaluation + Plan note Associated Problem(s): Hyperlipidemia Annual blood work is due in May and she was given a requisition. She will remain on simvastatin 20 mg daily in the interim [facility] Work Phone: 04-06-2024 Evaluation + Plan note Associated Problem(s): Hypertension Blood pressure stable and well-controlled and she did not need refills today. [facility] Work Phone: 04-06-2024 History of Present illness Narrative Subjective Patient ID: Ledy Ching is a 78 y.o. female who presents for No chief complaint on file.. Patient is here for follow-up on her hypertension depression reflux symptoms and medication management. Patient has not been seen in October since October. Patient had a bad year in 2023 because of multiple surgeries on her left knee. The first surgery was in April at [facility] when she had a left total knee replacement however she had multiple complications and had to go back for second surgery in July. The second surgery also did not take well so patient switched surgeons to in [facility] who finally did the last revision to her left knee and quadriceps tendon. Patient was in a cast for 3 months but has now completed physical therapy and has been released from his care. She is still unable to go up and down the stairs and now uses a walker to ambulate. Review of Systems Constitutional: Negative for fatigue and fever. HENT: Negative for sore throat and trouble swallowing. Eyes: Negative for visual disturbance. Respiratory: Negative for cough and shortness of breath. Cardiovascular: Negative for chest pain, palpitations and leg swelling. Gastrointestinal: Negative for abdominal pain, constipation, diarrhea, nausea and vomiting. Genitourinary: Negative for dysuria and frequency. Musculoskeletal: Positive for gait problem. Negative for arthralgias. Skin: Negative for rash. Neurological: Negative for dizziness and light-headedness. Objective Medication Documentation Review Audit Reviewed by Saima Mendoza MD (Physician) on 04/06/24 at 1022 Medication Order Taking? Sig Documenting Provider Last Dose Status amLODIPine (Norvasc) 10 mg tablet [id number] Yes Take 1 tablet (10 mg) by mouth once daily. Saima Mendoza MD Active ascorbic acid, vitamin C, 500 mg capsule [id number] Yes Take by mouth. Historical Provider, Taking Active calcium carbonate 600 mg calcium (1,500 mg) tablet [id number] Yes Take 1 tablet (600 mg) by mouth. Historical Provider, Taking Active carvedilol (Coreg) 3.125 mg tablet [id number] Yes Take 1 tablet (3.125 mg) by mouth 2 times a day. Saima Mendoza MD Active cholecalciferol (Vitamin D-3) 50 mcg (2,000 unit) capsule [id number] Yes Take 1 capsule (50 mcg) by mouth. Historical Provider, Taking Active hydroCHLOROthiazide (HYDRODiuril) 50 mg tablet [id number] Yes Take 1 tablet (50 mg) by mouth once daily. Saima Mendoza MD Active lisinopril 40 mg tablet [id number] Yes Take 1 tablet (40 mg) by mouth once daily. Saima Mendoza MD Active meloxicam (Mobic) 15 mg tablet [id number] Yes Take 1 tablet (15 mg) by mouth once daily. Saima Mendoza MD Active omeprazole (PriLOSEC) [address] capsule [id number] Yes Take 1 capsule (40 mg) by mouth once daily. Saima Mendoza MD Active PARoxetine (Paxil) 20 mg tablet [id number] Yes TAKE 1 TABLET DAILY Saima Mendoza MD Active simvastatin (Zocor) 20 mg tablet [id number] Yes Take 1 tablet (20 mg) by mouth once daily. Saima Mendoza MD Active traZODone (Desyrel) 100 mg tablet [id number] Yes Take 1 tablet (100 mg) by mouth once daily at bedtime. Saima Mendoza MD Active zoster vaccine-recombinant adjuvanted (Shingrix) 50 mcg/0.5 mL vaccine [id number] Yes Inject into the shoulder, thigh, or buttocks. Historical Provider, Taking Active No Known Allergies BP 122/72 Pulse 53 Ht 1.651 m (5' 5) Wt 66.2 kg (146 lb) SpO2 93% BMI 24.30 kg/m Physical Exam Constitutional: Appearance: Normal appearance. [...] Problem List Items Addressed This Visit Hypertension - Primary Blood pressure stable and well-controlled and she did not need refills today. Relevant Orders TSH with reflex to Free T4 if abnormal Vitamin D 25-Hydroxy,Total (for eval of Vitamin D levels) Lipid Panel Comprehensive Metabolic Panel CBC Hyperlipidemia Annual blood work is due in May and she was given a requisition. She will remain on simvastatin 20 mg daily in the interim Relevant Orders TSH with reflex to Free T4 if abnormal Vitamin D 25-Hydroxy,Total (for eval of Vitamin D levels) Lipid Panel Comprehensive Metabolic Panel CBC Hypercholesterolemia Relevant Orders TSH with reflex to Free T4 if abnormal Vitamin D 25-Hydroxy,Total (for eval of Vitamin D levels) Lipid Panel Comprehensive Metabolic Panel CBC Current moderate episode of major depressive disorder (Multi) Patient admits her depression is slightly worse because she is frustrated with her inability to go up and down stairs and make all of her normal movements. We discussed upping her dose but she is decided to stay on her current dose and not make any changes GERD (gastroesophageal reflux disease) Patient's reflux symptoms are stable with the omeprazole 40 mg daily. Relevant Orders TSH with reflex to Free T4 if abnormal Vitamin D 25-Hydroxy,Total (for eval of Vitamin D levels) Lipid Panel Comprehensive Metabolic Panel CBC Vitamin D deficiency Relevant Orders TSH with reflex to Free T4 if abnormal Vitamin D 25-Hydroxy,Total (for eval of Vitamin D levels) Lipid Panel Comprehensive Metabolic Panel CBC It has been a pleasure seeing you. Saima Mendoza MD documented in this encounter [facility] Work Phone: 04-06-2024 Instructions Saima Mendoza MD - 04/06/2024 10:00 AM EST Follow up Dr Mendoza in June with 45 min wellness exam Get fasting labs in May or before June appointment documented in this encounter [facility] Work Phone: 11-17-2023 Evaluation + Plan note Associated Problem(s): Current moderate episode of major depressive disorder (Multi) Patient's mood is stable although she admits to feeling frustrated more than depressed because of the left leg in a cast on the multiple surgeries. [facility] Work Phone: 11-17-2023 Evaluation + Plan note Associated Problem(s): GERD (gastroesophageal reflux disease) Patient denies any breakthrough symptoms. She continues taking Mobic for aches and pains and is on omeprazole 40 mg daily to prevent heartburn [facility] Work Phone: 11-17-2023 Miscellaneous Notes Associated Problem(s): Current moderate episode of major depressive disorder (Multi) Patient's mood is stable although she admits to feeling frustrated more than depressed because of the left leg in a cast on the multiple surgeries. Associated Problem(s): GERD (gastroesophageal reflux disease) Patient denies any breakthrough symptoms. She continues taking Mobic for aches and pains and is on omeprazole 40 mg daily to prevent heartburn Associated Problem(s): Hypercholesterolemia Patient remains on simvastatin 20 mg daily and annual blood work is due in May Associated Problem(s): Hypertension Hypertension is stable and well-controlled. documented in this encounter [facility] Work Phone: 11-17-2023 Evaluation + Plan note Associated Problem(s): Hypercholesterolemia Patient remains on simvastatin 20 mg daily and annual blood work is due in May [facility] Work Phone: 11-17-2023 Evaluation + Plan note Associated Problem(s): Hypertension Hypertension is stable and well-controlled. [facility] Work Phone: 11-17-2023 History of Present illness Narrative Subjective Patient ID: Ledy Ching is a 78 y.o. female who presents for 4 month follow up up for HTN management. Patient is here for month follow-up for hypertension also for she has now had 3 surgeries and a left total knee revision. She has had complications and is now in a total cast from the mid thigh all the way down the left leg and foot to mobilize her left leg. Review of Systems Constitutional: Negative for fatigue and fever. HENT: Negative for sore throat and trouble swallowing. Eyes: Negative for visual disturbance. Respiratory: Negative for cough and shortness of breath. Cardiovascular: Negative for chest pain, palpitations and leg swelling. Gastrointestinal: Negative for abdominal pain, constipation, diarrhea, nausea and vomiting. Genitourinary: Negative for dysuria and frequency. Musculoskeletal: Negative for arthralgias. Skin: Negative for rash. Neurological: Negative for dizziness and light-headedness. Objective Medication Documentation Review Audit Reviewed by Saima Mendoza MD (Physician) on 11/17/23 at 0918 Medication Order Taking? Sig Documenting Provider Last Dose Status amLODIPine (Norvasc) 10 mg tablet [id number] Take 1 tablet (10 mg) by mouth once daily. Saima Mendoza MD Active ascorbic acid, vitamin C, 500 mg capsule [id number] No Take by mouth. Historical Provider, Taking Active calcium carbonate 600 mg calcium (1,500 mg) tablet [id number] No Take 1 tablet (600 mg) by mouth. Historical Provider, Taking Active carvedilol (Coreg) 3.125 mg tablet [id number] Take 1 tablet (3.125 mg) by mouth 2 times a day. Saima Mendoza MD Active cholecalciferol (Vitamin D-3) 50 mcg (2,000 unit) capsule [id number] No Take 1 capsule (50 mcg) by mouth. Historical Provider, Taking Active hydroCHLOROthiazide (HYDRODiuril) 50 mg tablet [id number] Take 1 tablet (50 mg) by mouth once daily. Saima Mendoza MD Active lisinopril 40 mg tablet [id number] Take 1 tablet (40 mg) by mouth once daily. Saima Mendoza MD Active meloxicam (Mobic) 15 mg tablet [id number] Take 1 tablet (15 mg) by mouth once daily. Saima Mendoza MD Active omeprazole (PriLOSEC) [address] capsule [id number] Take 1 capsule (40 mg) by mouth once daily. Saima Mendoza MD Active PARoxetine (Paxil) 20 mg tablet [id number] No Take 1 tablet (20 mg) by mouth once daily. Saima Mendoza MD Taking Active simvastatin (Zocor) 20 mg tablet [id number] Take 1 tablet (20 mg) by mouth once daily. Saima Mendoza MD Active traZODone (Desyrel) 100 mg tablet [id number] Take 1 tablet (100 mg) by mouth once daily at bedtime. Saima Mendoza MD Active zoster vaccine-recombinant adjuvanted (Shingrix) 50 mcg/0.5 mL vaccine [id number] No Inject into the shoulder, thigh, or buttocks. Historical Provider, Taking Active No Known Allergies BP 128/74 Pulse 60 Ht 1.651 m (5' 5) Wt 67 kg (147 lb 12.8 oz) Comment: with hard cast on left leg SpO2 92% BMI 24.60 kg/m Physical Exam Constitutional: Appearance: Normal appearance. [...] edema. Left lower leg: No edema. Comments: Left leg is in a cast from the mid thigh all the way down through and around the foot to totally immobilize it after her multiple left knee surgeries. Neurological: Mental Status: She is alert. Assessment/Plan Problem List Items Addressed This Visit Hypertension Hypertension is stable and well-controlled. Hyperlipidemia Hypercholesterolemia Patient remains on simvastatin 20 mg daily and annual blood work is due in May Current moderate episode of major depressive disorder (Multi) Patient's mood is stable although she admits to feeling frustrated more than depressed because of the left leg in a cast on the multiple surgeries. GERD (gastroesophageal reflux disease) Patient denies any breakthrough symptoms. She continues taking Mobic for aches and pains and is on omeprazole 40 mg daily to prevent heartburn Other Visit Diagnoses Acute cystitis without hematuria - Primary Relevant Orders Urinalysis with Reflex Culture and Microscopic Flu vaccine need Relevant Orders Flu vaccine, trivalent, preservative free, HIGH-DOSE, age 65y+ (Fluzone) (Completed) It has been a pleasure seeing you. Saima Mendoza MD documented in this encounter [facility] Work Phone: 11-17-2023 Instructions Saima Mendoza MD - 11/17/2023 9:00 AM EDT Try [employer] for hearing aids Go to Lab for Urine specimen today Follow up Dr Mendoza in 4 months for 30 min appointment documented in this encounter [facility] Work Phone: 10-18-2023 Note HNO ID: [id number] Author: ERON DEMPSEY LSW Service: Care Management Author Type: Machine Tool Technician Instructor Type: Care Mgt Progress Note Filed: 10/18/2023 13:55 Note Text: CARE MANAGEMENT DISCHARGE NOTE SERVICE DATE: October 18, 2023 SERVICE TIME: 1:51 PM Admission Date: 10/15/2023 LOS: 3 days Discharge Arrangement Discharge Arrangement: Jail Facility Was an expedited discharge program used?: No Caregiver Assessment Caregiver is ready, willing and able to meet the patient's needs as recommended by the inter-professional team: No Caregiver needed Transportation Arrangements Transportation Arrangements: Car Date of Trip: 10/18/23 Time of Trip: 1530 Destination: [facility] Handoff Communication: Handoff to: [facility] Name/Phone: Kole Guzman [facility] [phone] Additional Information: Physician team states patient is discharge ready this date. Pt has auth approval to admit to SNF. SW confirmed on the phone that pt's , Barney will provide transport. Barney states he will be here at 3pm, asks for nursing to be sure and have the wheelchair they came in with available for discharge. MARLINE updated team and SNF who is ready to receive. CM discharge packet on the chart for nursing to complete with N2N number provided. Case closed. Discharge Information Row Name Admission (Current) from 10/15/2023 in [id number] MED/SURG Jail Facility Agency [facility] SIGNATURE: BARBARA Tapia PATIENT NAME: Ledy Ching DATE: October 18, 2023 TIME: 1:51 PM CONTACT #: [id number] [facility] 10-18-2023 Note HNO ID: [id number] Author: PAULINA GOLDSMITH ? Service: Care Management Author Type: ? Type: Care Mgt Progress Note Filed: 10/18/2023 13:26 Note Text: [facility] PRECERT NOTE [employer] MEDICARE PPO approved Jail Facility for [facility]. Precert approved through 10/29/2023. For any additional questions regarding approvals, transport or care management needs, please contact the CM assigned to this patient in the Treatment Team. SIGNATURE: Paulina Goldsmith DATE: October 18, 2023 TIME: 1:25 PM [facility] 10-18-2023 Note HNO ID: [id number] Author: CHARLY COPE MD Service: General Internal Medicine Author Type: Physician Type: Progress Notes Filed: 10/18/2023 10:47 Note Text: INPATIENT PROGRESS NOTE SERVICE DATE: 10/18/2023 SERVICE TIME: 1045 Subjective She is complaining of fatigue, no other complaints. She denies chest pain, shortness of breath, or calf pain. Current Facility-Administered Medications Medication Dose Route Frequency midazolam (PF) 2 mg injection (VERSED) 2 mg INTRAVENOUS Pre-Op PRN carvedilol 12.5 mg tab(s) (COREG) 12.5 mg ORAL BID w MEALS hydroCHLOROthiazide 50 mg tab(s) 50 mg ORAL DAILY lisinopril 40 mg tab(s) (ZESTRIL) 40 mg ORAL DAILY simvastatin 20 mg tab(s) (ZOCOR) 20 mg ORAL AT BEDTIME PARoxetine 20 mg tab(s) (PAXIL) 20 mg ORAL DAILY traZODone 100 mg tab(s) (DESYREL) 100 mg ORAL AT BEDTIME NaCl 0.9% iv infusion 75 mL/hr INTRAVENOUS CONTINUOUS traMADol 50 mg tab(s) (ULTRAM) 50 mg ORAL q 6 H PRN oxyCODONE IR 5-10 mg tab(s) (ROXICODONE) 5-10 mg ORAL q 4 H PRN HYDROmorphone 0.4 mg injection (DILAUDID) 0.4 mg INTRAVENOUS q 3 H PRN ondansetron 4 mg tab(s) (ZOFRAN) 4 mg ORAL q 6 H PRN Or ondansetron (PF) 4 mg injection (ZOFRAN) 4 mg INTRAVENOUS q 6 H PRN polyethylene glycol 3350 17 g packet 17 g ORAL DAILY PRN bisacodyl EC 10 mg tab(s) (DULCOLAX) 10 mg ORAL DAILY docusate sodium 100 mg cap(s) (COLACE) 100 mg ORAL BID senna 17.2 mg tab(s) (SENOKOT) 17.2 mg ORAL AT BEDTIME enoxaparin 40 mg injection (LOVENOX) 40 mg SUBCUTANEOUS DAILY Objective Lungs-clear Heart-regular Abdomen-soft, benign Extremities-no edema Patient Vitals for the past 24 hrs: BP Temp Temp src Pulse Resp SpO2 10/18/23 0737 139/76 36.9 ?C (98.4 ?F) Axillary 60 15 96 % 10/18/23 0551 118/61 -- -- 62 -- 97 % 10/17/23 2300 107/55 36.8 ?C (98.2 ?F) Oral 69 16 96 % 10/17/232005 114/62 36.8 ?C (98.2 ?F) Oral 67 14 92 % 10/17/23 1525 113/54 36.8 ?C (98.2 ?F) Axillary 61 16 94 % 10/17/23 1226 -- -- -- 66 -- 91 % 10/17/23 1225 -- -- -- 63 -- 89 % 10/17/23 1116 108/55 36.6 ?C (97.8 ?F) Axillary 66 14 93 % Body mass index is 23.73 kg/m?. 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 Check labs tomorrow. Active Problems: Presence of artificial knee joint, left (POA: Yes) Assessment AND Plan: Hypertension (POA: Yes) Assessment AND Plan: Generalized osteoarthritis of multiple sites (POA: Yes) Assessment AND Plan: GERD (gastroesophageal reflux disease) (POA: Yes) Assessment AND Plan: Insomnia (POA: Yes) Assessment AND Plan: Vitamin D deficiency (POA: Yes) Assessment AND Plan: Resolved Problems: * No resolved hospital problems. * Medication and Non-Pharmacologic VTE Prophylaxis/Anticoagulants Anticoagulant AND Antiplatelet Medications (From admission, onward) Start Dose Route Frequency Last Action Ordered Stop 10/16/23 09 enoxaparin 40 mg injection (LOVENOX) (Surgical Risk Categories) 40 mg SUBCUTANEOUS DAILY Given, 10/17 0910/15/23 1708 -- 10/15/23 171 pneumatic compression stockings (mo,oh) 10/15/23 171 graduated compression stockings (mo,md) 10/15/23 171 activity - mobilize patient (mo,md) VTE Prophylaxis: VTE prophylaxis appropriate SIGNATURE: Charly Cope MD PATIENT NAME: Ledy Ching DATE: October 18, 2023 TIME: 10:45 AM [facility] 10-18-2023 Note HNO ID: [id number] Author: GUILLE PEREZ MD Service: Orthopaedic Surgery Author Type: Physician Type: Progress Notes Filed: 10/18/2023 08:37 Note Text: Orthopaedic INPATIENT PROGRESS NOTE PRIMARY SERVICE: Orthopaedic INTERVAL HPI: Patient is working with physical therapy. Her pain is well-controlled. MEDICATIONS: Current Facility-Administered Medications Medication Dose Route Frequency midazolam (PF) 2 mg injection (VERSED) 2 mg INTRAVENOUS Pre-Op PRN carvedilol 12.5 mg tab(s) (COREG) 12.5 mg ORAL BID w MEALS hydroCHLOROthiazide 50 mg tab(s) 50 mg ORAL DAILY lisinopril 40 mg tab(s) (ZESTRIL) 40 mg ORAL DAILY simvastatin 20 mg tab(s) (ZOCOR) 20 mg ORAL AT BEDTIME PARoxetine 20 mg tab(s) (PAXIL) 20 mg ORAL DAILY traZODone 100 mg tab(s) (DESYREL) 100 mg ORAL AT BEDTIME NaCl 0.9% iv infusion 75 mL/hr INTRAVENOUS CONTINUOUS traMADol 50 mg tab(s) (ULTRAM) 50 mg ORAL q 6 H PRN oxyCODONE IR 5-10 mg tab(s) (ROXICODONE) 5-10 mg ORAL q 4 H PRN HYDROmorphone 0.4 mg injection (DILAUDID) 0.4 mg INTRAVENOUS q 3 H PRN ondansetron 4 mg tab(s) (ZOFRAN) 4 mg ORAL q 6 H PRN Or ondansetron (PF) 4 mg injection (ZOFRAN) 4 mg INTRAVENOUS q 6 H PRN polyethylene glycol 3350 17 g packet 17 g ORAL DAILY PRN bisacodyl EC 10 mg tab(s) (DULCOLAX) 10 mg ORAL DAILY docusate sodium 100 mg cap(s) (COLACE) 100 mg ORAL BID senna 17.2 mg tab(s) (SENOKOT) 17.2 mg ORAL AT BEDTIME enoxaparin 40 mg injection (LOVENOX) 40 mg SUBCUTANEOUS DAILY LABS: Recent Labs 10/16/23 0556 WBC 10.51 HB 12.0 HCT 36.6 PLT 235 NA 140 K 4.0 CHLOR 101 CO2 33* BUN 12 CREAT 0.66 GLUC 113* CA 9.6 PHYSICAL EXAM: BP 139/76 Pulse 60 Temp 36.9 ?C (98.4 ?F) (Axillary) Resp 15 Ht 167.6 cm (5' 6) Wt 66.7 kg (147 lb) SpO2 96% BMI 23.73 kg/m? Body mass index is 23.73 kg/m?. General appearance: well appearing, alert, and in no acute distress Extremities: Patient's left long-leg splint is intact. There is no drainage. Her calf is soft. She can actively wiggle all toes. Good capillary refill of all toes. ASSESSMENT AND PLAN: I have seen and examined the patient and are managing the following conditions: Status post left knee extensor mechanism reconstruction poly exchange left total knee on October 14. Patient is weightbearing as tolerated in a long-leg splint. She does have a Prevena wound VAC. She is pending rehab at this time. Patient has Lovenox for DVT prophylaxis. Prescriptions are in chart. ERG. SIGNATURE: Guille Perez MD DATE of SERVICE: 10/18/2023 TIME of SERVICE: 8:36 AM [facility] 10-17-2023 Note HNO ID: [id number] Author: KRISTY THORNE RN Service: Care Management Author Type: Registered Nurse Type: Care Mgt Progress Note Filed: 10/17/2023 11:50 Note Text: CARE MANAGEMENT PROGRESS NOTE SERVICE DATE: 10/17/2023 SERVICE TIME: 1146 LOS: 2 days IMM Follow Up Copy Given: Yes Copy given to:: Patient Method: In Person --------- Chart reviewed. S/p L knee extensor mechanism repair and polyethylene exchange by on 10/15/23. Is A/O x4 and usually req min assistance in all ADL's. Lives with Barney [phone] who is able to provide physical assistance and transportation as needed. Has med and Rx coverage. PCP is . PT/OT rec Acute Rehab. FOC is [facility] and they can accept. Family will provide d/c transportation. Disclaimer given that if any form of amb transportation is used upon d/c there may be an OOP cost- pt verbalized understanding. D/C Plan is [facility] SNF for Skilled PT/OT when precert approval obtained and is med cleared. Precert started on 10/17/23. PASRR done. Postacute Transfer form on chart. Family will provide d/c transportation. CM will cont to follow and assist with safe d/c planning. SIGNATURE: Kristy Thorne RN PATIENT NAME: Ledy Ching DATE: October 17, 2023 TIME: 11:46 AM PAGER/CONTACT #: [phone] [facility] 10-17-2023 Note HNO ID: [id number] Author: JAY CID APRN.JEWELRY BENCH MOLDER Service: Orthopaedic Surgery Author Type: Nurse Practitioner Type: Progress Notes Filed: 10/20/2023 08:43 Note Text: ORTHOPAEDIC POSTOP PROGRESS NOTE SERVICE DATE: 10/17/2023 SERVICE TIME: 0840 Subjective INTERVAL HPI: Respiratory: Denies shortness of breath Cardiac: Denies chest pain or palpitations. Musculoskeletal: Does complain of left knee pain when asked. No new complaints in that regard today. *Discussed with patient today that due to her mobility challenges, likely will need long term facility. Yesterday, she had refused that option, only wanted to consider home health care. Today, she does not remember that conversation and is more open to long term facility. Objective Patient Vitals for the past 24 hrs: BP Temp Temp src Pulse Resp SpO2 10/17/23 0807 92/55 -- -- -- -- -- 10/17/23 0756 84/58 36.3 ?C (97.4 ?F) Axillary 83 15 90 % 10/16/23 2333 98/65 36.9 ?C (98.4 ?F) Oral 83 18 91 % 10/16/23 1906 131/72 37.1 ?C (98.8 ?F) Oral 84 18 90 % 10/16/23 1504 149/68 36.7 ?C (98.1 ?F) Oral 67 14 88 % 10/16/23 1301 -- 36.9 ?C (98.5 ?F) -- -- -- -- 10/16/23 1036 131/73 36.8 ?C (98.2 ?F) Oral 85 17 93 % Intake/Output Summary (Last 24 hours) at 10/17/2023 0907 Last data filed at 10/17/2023 0606 Gross per 24 hour Intake 650 ml Output 1700 ml Net -1050 ml EXAM: Cardiovascular - Heart is regular rate by radial pulse. Respiratory - nonlabored, regular, even. Musculoskeletal -long-leg splint, Han wrap, Prevena to the left knee and leg. Otherwise, toes are pink and warm, mobile, sensation intact to light touch. Neurologic - Patient is alert and appropriate. 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 Postop day #2: - Vital signs stable, afebrile -however this morning when working with therapy, she did have blood pressure drop after sitting at the side of the bed for approximately 20 minutes. No other event, did not pass out or have any other difficulty from this. Will continue to monitor. - Pain seems to be well-controlled at this time. - She is permitted full weightbearing to the left leg with leg in extension, does have a long-leg posterior splint in place. At this point, we will use the splint as opposed to brace. (She does have an IROM brace in the room, will plan to keep this for possibility of future use down the road). - PT/OT. - Ice pack as needed for pain and swelling. - Continue with Prevena incisional VAC for 1 week. Patient should follow-up in the office in 1 week for removal, wound inspection, and likely placement of long-leg cast. -Antibiotic prophylaxis will be extended, Ancef IV 2 grams while here in the hospital. Will plan for cefadroxil 500 mg p.o. twice daily for 7 days at discharge. - DVT prophylaxis: SCDs on the left leg. She is on Lovenox 40 mg subcu daily. Will plan to continue this for 6 weeks at discharge. - Discharge plan: Due to her mobility needs, likely will need skilled facility at discharge. *Okay to discharge if bed available/approved at facility. Orders are in place. - When she is discharged, although her follow-up is scheduled with Dr. Tracy for 11/03/2023 at 9:15 AM, we will need her to reschedule/make a new appointment to see him on 10/22/2023, next Friday, for wound VAC removal, wound inspection and placement of long-leg cast. -Orders for skilled facility discharge are in place. Prescriptions on chart. Resolved Problems: * No resolved hospital problems. * Medication and Non-Pharmacologic VTE Prophylaxis/Anticoagulants Anticoagulant AND Antiplatelet Medications (From admission, onward) Start Dose Route Frequency Last Action Ordered Stop 10/16/23 0900 enoxaparin 40 mg injection (LOVENOX) (Surgical Risk Categories) 40 mg SUBCUTANEOUS DAILY Given, 10/15 0815 10/15/23 1708 -- 10/15/23 1715 pneumatic compression stockings (mo,[place]) 10/15/23 171 graduated compression stockings ([place]) 10/15/23 171 activity - mobilize patient ([place]) SIGNATURE: Jay Cid APRN.CNP PATIENT NAME: Ledy Ching DATE: October 17, 2023 TIME: 9:07 AM ETX#[id number] [facility] 10-16-2023 Note HNO ID: [id number] Author: KRISTY THORNE RN Service: Care Management Author Type: Registered Nurse Type: Care Mgt Progress Note Filed: 10/16/2023 13:57 Note Text: CARE MANAGEMENT PROGRESS NOTE SERVICE DATE: 10/16/2023 SERVICE TIME: 1350 LOS: 1 day IMM Follow Up Copy Given: Yes Copy given to:: Patient Method: In Person SIGNATURE: Kristy Thorne RN PATIENT NAME: Ledy Ching DATE: October 16, 2023 TIME: 1:57 PM PAGER/CONTACT #: [phone] [facility] 10-16-2023 Note HNO ID: [id number] Author: KRISTY THORNE RN Service: Care Management Author Type: Registered Nurse Type: Care Mgt Initial Assessment Filed: 10/16/2023 16:09 Note Text: CARE MANAGEMENT: ASSESSMENT AND DISCHARGE PLAN SERVICE DATE: October 16, 2023 SERVICE TIME: 1350 PCP: Saima Mendoza MD Primary Contact: Extended Emergency Contact Information Primary Emergency Contact: Barney Ching Address: [address] [place] [id number] Relation: Spouse Admission Status: Inpatient Insurance Provider: AET MEDICARE PPO Discharge Planning requested by: Per Department Practice Potential Transition Plans Home;Home Care;Home OT/PT;Durable Medical Equipment;Jail Facility/Intermediate Care Facility;Rehab Facility Advance Directives Current Advance Directive: None Bottle Label Inspector Attempted to Assist with AD Completion: Yes Action: Education Provided Current Living Arrangements and Support Lives with: Spouse/significant other Type of Residence: Private Residence (House) Does the patient have to climb stairs at home?: stairs outside the home Support: Spouse/significant other How do you manage to accomplish the following: Independent: Ambulation;Bathe/Shower;Dress;Meals /Meal Prep;Going to the bathroom;Medication Management;Transportation to appointments/community Needs Assistance: Transportation to appointments/community Current Services/Equipment Current Post-Acute Service(s): DME Current DME Type: Cane, Walker, Wheelchair-manual, Shower seat, Grab bars Discharge Planning Patient Goal(s): Be able to go home, General wellness, Less pain, Better mobility [place] Explained: [place] Given: Yes Level of Care Discussed: Home Care;Inpatient Rehab Facility;Jail Facility;Other: See Comment Are you interested in bedside delivery of your medications? No Discharge Planning Participant(s): Patient Patient/Family Comments: Caregiver Assessment: Caregiver is ready, willing and able to meet the patient's needs as recommended by the inter-professional team: Yes Name of Caregiver: Transport at Discharge: Transportation Arrangements: Car Destination: Home Needs Prior to Discharge: Post-Acute Discharge Plan: Chart reviewed. S/p L knee extensor mechanism repair and polyethylene exchange by on 10/15/23. Is A/O x4 and usually req min assistance in all ADL's. Lives with Barney [phone] who is able to provide physical assistance and transportation as needed. Has 3 steps to enter one level home. Has a cane, wheeled walker, shower chair, grab bars and manual w/c. Has med and Rx coverage. PCP is . PT/OT eval and tx. PT/OT rec Acute Rehab. Discussed d/c options: DME, HHC, Rehab and SNF. Declines Rhb and SNF. [facility] is whomever is within insurance network- ref sent to [facility] and [facility] and several other [facility] co via MePlease. D/C Plan is Home with Care and Support from and [facility] for Skilled PT/OT when med cleared. [facility] order obtained and uploaded in MePlease. NEED ACCEPTING [facility] CO PRIOR TO D/C. Family will provide d/c transportation. CM will cont to follow and assist with safe d/c planning. ------ Intimate Partner Violence We have begun to talk to patients about safe and healthy relationships because it can have a large impact on your health. Do you feel safe around your partner or ex-partner?: Yes Food Insecurity Within the past 12 months, you worried that your food would run out before you got the money to buy more.: Never true Within the past 12 months, the food you bought just didn't last and you didn't have money to get more.: Never true Transportation Needs In the past 12 months, has lack of transportation kept you from medical appointments or from getting medications?: No In the past 12 months, has lack of transportation kept you from meetings, work, or from getting things needed for daily living?: No Housing Stability In the last 12 months, was there a time when you were not able to pay the mortgage or rent on time?: No At any time in the past 12 months, were you homeless or living in a alf (including now)?: No Utilities In the past 12 months has the [employer], gas, oil, or water [employer] threatened to shut off services in your home?: No Social Information Financial Resources: Retired SIGNATURE: Krisyt Thorne RN PATIENT NAME: Ledy Ching DATE: October 16, 2023 TIME: 1:51 PM CONTACT #: [phone] [facility] 10-16-2023 Note HNO ID: [id number] Author: JAY CID APRN.JEWELRY BENCH MOLDER Service: Orthopaedic Surgery Author Type: Nurse Practitioner Type: Progress Notes Filed: 10/17/2023 09:11 Note Text: ORTHOPAEDIC POSTOP PROGRESS NOTE SERVICE DATE: 10/16/2023 SERVICE TIME: 0935 Subjective INTERVAL HPI: Respiratory: Denies shortness of breath Cardiac: Denies chest pain or palpitations. Musculoskeletal: Reports that the pain is under control. Denies numbness or tingling to extremities. Objective Patient Vitals for the past 24 hrs: BP Temp Temp src Pulse Resp SpO2 Height Weight 10/16/23 1036 131/73 36.8 ?C (98.2 ?F) Oral 85 17 93 % -- -- 10/16/23 0731 145/60 37.4 ?C (99.3 ?F) Oral 63 18 91 % -- -- 10/16/23 0323 151/67 37 ?C (98.6 ?F) Oral 63 18 98 % -- -- 10/16/23 0030 146/61 37 ?C (98.6 ?F) Oral 63 17 98 % -- -- 10/15/23 1904 133/66 37.2 ?C (98.9 ?F) Oral 62 18 96 % -- -- 10/15/23 1709 147/73 36.8 ?C (98.3 ?F) Axillary 69 14 96 % -- -- 10/15/23 1704 -- -- -- -- -- -- 167.6 cm (5' 6) 66.7 kg (147 lb) 10/15/23 1630 -- 37.1 ?C (98.8 ?F) Temporal -- 14 -- -- -- 10/15/23 1615 -- -- -- -- 14 -- -- -- 10/15/23 1608 148/67 -- -- 64 -- 100 % -- -- 10/15/23 1600 140/64 -- -- 67 16 100 % -- -- 10/15/23 1545 148/83 -- -- 66 16 93 % -- -- 10/15/23 1540 -- -- -- -- 14 (!) 85 % -- -- 10/15/23 1530 153/69 -- -- 65 -- 96 % -- -- 10/15/23 1515 151/70 -- -- 66 16 96 % -- -- 10/15/23 1500 156/69 -- -- 68 16 95 % -- -- 10/15/23 1445 154/75 37.2 ?C (98.9 ?F) Temporal 75 16 96 % -- -- 10/15/23 1215 124/58 -- -- (!) 53 -- 95 % -- -- 10/15/23 1211 -- -- -- (!) 55 16 93 % -- -- 10/15/23 1210 136/63 -- -- (!) 59 16 89 % -- -- 10/15/23 1205 162/74 -- -- (!) 59 16 92 % -- -- 10/15/23 1200 155/72 -- -- (!) 57 16 93 % -- -- 10/15/23 1155 -- -- -- (!) 58 -- 93 % -- -- 10/15/23 1150 -- -- -- (!) 55 -- 94 % -- -- 10/15/23 1145 -- -- -- (!) 54 -- 92 % -- -- 10/15/23 1143 141/65 -- -- (!) 59 16 97 % -- -- Intake/Output Summary (Last 24 hours) at 10/16/2023 1052 Last data filed at 10/16/2023 0509 Gross per 24 hour Intake 1500 ml Output 1810 ml Net -310 ml EXAM: Cardiovascular - Heart is regular rate by radial pulse. Respiratory - nonlabored, regular, even. Musculoskeletal - Dressing is dry and intact, Prevena to the incision, functioning well, no drainage. Long-leg posterior Ortho-Glass type splint in place, Han wrap. Toes are pink and warm, sensation intact to touch. Neurologic - Patient is alert and appropriate. DATA: CBC with diff: WBC 10.51 10/16/2023 RBC 4.31 10/16/2023 Hemoglobin 12.0 10/16/2023 Hematocrit 36.6 10/16/2023 MCV 84.9 10/16/2023 MCH 27.8 10/16/2023 MCHC 32.8 10/16/2023 RDW-CV 13.9 10/16/2023 Platelet Count 235 10/16/2023 MPV 9.6 10/16/2023 Neut% 78.5 08/19/2012 Lymph% 13.1 08/19/2012 Ida% 6.0 08/19/2012 Eosin% 2.2 08/19/2012 Baso% 0.2 08/19/2012 Abs Neut (ANC) 9.87 08/19/2012 Abs Lym 1.2 04/17/2009 Abs Ida 0.75 08/19/2012 Abs Eosin 0.28 08/19/2012 Abs Baso 0.03 08/19/2012 Assessment/Plan Left knee chronic extensor mechanism disruption 2. Presence of left total knee arthroplasty - Status post left knee extensor mechanism reconstruction, left total knee arthroplasty polyethylene exchange on 10/15/2023. Postop day #1: - Vital signs stable, afebrile. - Pain seems to be fairly well-controlled at this time. - HANDH this morning stable at 12.0/36.6. - She is permitted full weightbearing to the left leg with leg in extension, does have a long-leg posterior splint in place. At this point, we will use the splint as opposed to brace. She does have an I ROM brace in the room, will plan to keep this for possibility of future use down the road. - PT/OT. - Ice pack as needed for pain and swelling. - Continue with Prevena incisional VAC for 1 week. Patient should follow-up in the office in 1 week for removal, wound inspection, and likely placement of long-leg cast. -Antibiotic prophylaxis will be extended, Ancef IV 2 grams while here in the hospital. Will plan for cefadroxil 5 mg p.o. twice daily for 7 days at discharge. - DVT prophylaxis: SCDs on the left leg. She is on Lovenox 40 mg subcu daily. Will plan to continue this for 6 weeks at discharge. - Discharge plan: At this point, she will need to be able to work with PT and OT. Unsure patient will be ready for discharge yet today. Will see how she does with therapy, mobility, and pain control. - When she is discharged, although her follow-up is scheduled with Dr. Tracy for 11/03/2023 at 9:15 AM, we will need her to reschedule/make a new appointment to see him on 10/22/2023, next Friday, for wound VAC removal, wound inspection and placement of long-leg cast. Discussed this with the patient this morning. She verbalized understanding. -Prescription will be for oxy IR 5 mg p.o. every 4 hours as needed pain. This is approximately 45 MME's and is greater than the 30 MME's guideline. *This patient underwent major orthopedic (more content not included)... [facility] 10-15-2023 Note HNO ID: [id number] Author: CARMELINA LÓPEZ APRN.DEPUTY BAILIFF Service: ? Author Type: Nurse Assault Boat Coxswain Type: Anesthesia Procedure Notes Filed: 10/15/2023 12:36 Note Text: ANESTHESIOLOGY PROCEDURE NOTE Airway General Information Procedure Start Time/Medication Administration: 10/15/2023 12:23 PM Procedure End Time: 10/15/2023 12:24 PM Patient location during procedure: OR Timeout Performed Pre-procedure: timeout performed Consent Obtained: Yes Patient identity confirmed: arm band Staffing DEPUTY BAILIFF: Carmelina López APRN.CRNA Performed by: ALANNA Indications and Patient Condition Indications for airway management: anesthesia and airway protection Preoxygenated: yes anesthesia circuit Patient position: sniffing Method: asleep Cricoid Pressure: No Manual In-Line Stabilization: No Difficult Mask: No Final Airway Details Final airway type: supraglottic airway Number of attempts at approach: 1 Ventilation between attempts: BVM Final Supraglottic Airway: LMA Classic Size 4 Seal Adequate: yes Failed airway: no Unrecognized esophageal intubation: no Airway not difficult SIGNATURE: Carmelina López CRNA, APRN.CRNA PATIENT NAME: Ledy Ching DATE: October 15, 2023 TIME: 12:35 PM CSN: [id number] [facility] 10-15-2023 Note HNO ID: [id number] Author: JOHN CRAIG DO Service: Anesthesiology Author Type: Anesthesiologist Type: Anesthesia Procedure Notes Filed: 10/23/2023 11:46 Note Text: ANESTHESIOLOGY PROCEDURE NOTE Peripheral Nerve Block General Information Procedure Start Time/Medication Administration: 10/15/2023 12:06 PM Procedure End time: 10/15/2023 12:07 PM Patient location during procedure: pre-op Timeout Performed Pre-procedure: timeout performed Consent Obtained: Yes Patient identity confirmed: arm band and patient Reason for block: post-op pain management/at surgeon's request Staffing Anesthesiologist: John Craig DO Performed by: anesthesiologist Preparation Sterility Preparation: hand hygiene performed prior to procedure, sterile gloves, drapes, and procedure tray, surgical cap used, mask used, sterile drape used during line insertion, skin prep agent completely dried prior to procedure Site Prep: Chloraprep Pre-Procedure Neuro Exam Location: LLE Sensory: intact Motor: intact Procedure Details Patient Position: supine Monitoring: Pulse OX, EKG and NIBP Block Type Lower Extremity: distal femoral (adductor canal) Laterality: left Injection Technique: single-shot Ultrasound Guided: Yes Image in Chart: yes Local Infiltration: Yes Needle Needle Type: echogenic Needle Gauge: 21 G Needle Length: 100 mm Needle Localization: anatomical landmarks and ultrasound Assessment Injection assessment: negative aspiration, local visualized surrounding nerve on ultrasound, no paresthesia on injection and incremental injection Paresthesia: none Post-Procedure Neuro Exam Expected Regional Anesthesia: Yes Medications Administered ropivacaine (PF) 5 mg/mL (0.5 %) injection (NAROPIN) - peripheral nerve block 15 mL - 10/15/2023 12:06:00 PM SIGNATURE: John Craig DO PATIENT NAME: Ledy Ching DATE: October 15, 2023 TIME: 12:07 PM CSN: [id number] [facility] 10-13-2023 Note HNO ID: [id number] Author: THANH JOHNSON APRN.JEWELRY BENCH MOLDER Service: ? Author Type: Nurse Practitioner Type: Progress Notes Filed: 10/13/2023 13:49 Note Text: Summary: new medical clearance Kelly provided a different medical clearance form approving patient holding ASA 7 days preop. [facility] 10-08-2023 Note HNO ID: [id number] Author: SANIYA JIMENEZ APRN.JEWELRY BENCH MOLDER Service: ? Author Type: Nurse Practitioner Type: Progress Notes Filed: 10/08/2023 15:34 Note Text: Summary: med clearance Med clearance received; pcp recommended taking 81mg ASA periop [facility] 10-08-2023 History of Present illness Narrative Summary: med clearance Med clearance received; pcp recommended taking 81mg ASA periop [facility] Consult SERVICE DATE: 10/08/2023 SERVICE TIME: 12:04 PM PRIMARY CARE PHYSICIAN: Saima Mendoza MD REASON FOR VISIT: Ledy Ching is a 78 year old female who is scheduled for L TKA at the request of Dr. TRACY for consultation. My final recommendation will be communicated back to the requesting physician by way of shared medical record or letter. The patient has the following: ACTIVE PROBLEM LIST Chronic Midline Low Back Pain With Bilateral Sciatica Fall Hypertension Abnormal Gait Allergic Rhinitis Cardiac Murmur Current Moderate Episode of Major Depressive Disorder (Hcc) Endometriosis Fluttering Heart Fracture of Second Cervical Vertebra (Hcc) Generalized Osteoarthritis of Multiple Sites Gerd (Gastroesophageal Reflux Disease) History of Hypertension History of Osteopenia Hyperlipidemia Inflammatory Arthritis Insomnia Lower Gastrointestinal Hemorrhage Menopause Present Nasal Congestion Osteopenia Polyp of Colon Vitamin D Deficiency Subjective CHIEF COMPLAINT: knee pain 78 yo female with HX: diverticulosis and diverticulitis, HTN, arthritis. PAST MEDICAL HISTORY No date: Arthritis No date: Diverticulitis No date: Diverticulosis No date: High cholesterol No date: Hypertension PAST SURGICAL HISTORY 1979: HYSTERECTOMY HX Comment: partial 2020: KNEE SURGERY HX Comment: TOTAL LEFT KNEE 2020 [place] 08/19/2023: KNEE SURGERY HX Comment: REVISION LEFT TOTAL KNEE AT [place] No family history on file. SOCIAL HISTORY: Social History Tobacco Use Smoking status: Never Passive exposure: Never Substance Use Topics Alcohol use: No Drug use: Never Prior to Admission medications as of 10/08/23 1118 Medication Sig Last Dose Taking aspirin 81 mg cap Take by mouth once daily. TAKES A PREVENTATIVE/ [facility] appoint. 10/08/23, pt states PCP/ Dr. Saima Mendoza does not want her to stop taiking; instructed to inform Dr. Tracy Yes acetaminophen (TYLENOL) 500 mg tablet Take 500 mg by mouth two times a day. Yes carvedilol (COREG) 3.125 mg tablet Take 12.5 mg by mouth two times a day with meals. [facility] appoint. Pt states she only takes 1 x day Yes calcium carbonate (CALTRATE) 600 mg calcium (1,500 mg) tab Take by mouth. STOPPED FOR SURGERY LAST DOSE 09/30 Yes ascorbic acid, vitamin C, (VITAMIN C) 500 mg tablet Take by mouth. STOPPED FOR SURGERY 09/30 LAST DOSE Yes Cholecalciferol, Vitamin D3, 50 mcg (2,000 unit) cap Take by mouth. STOPPED FOR SURGERY LAST DOSE 09/30 Yes lisinopril (ZESTRIL, PRINIVIL) 40 mg tablet Take 40 mg by mouth every morning. Yes omeprazole (PRILOSEC) 40 mg capsule Take 40 mg by mouth every evening. Yes hydroCHLOROthiazide (HYDRODIURIL, ESIDRIX) 50 mg tablet Take 50 mg by mouth every morning. Yes amLODIPine (NORVASC) 10 mg tablet every morning. Yes vitamin A (AQUASOL A) 10,000 unit capsule Take by mouth. STOPPED 09/30 FOR SURGERY Yes traZODone (DESYREL) 100 mg tablet Take 100 mg by mouth daily at bedtime. Yes meloxicam (MOBIC) 15 mg tablet Take 15 mg by mouth once daily. STOPPED FOR SURGERY 10/01/23 Yes simvastatin 20 mg tablet Take 20 mg by mouth daily at bedtime. Yes paroxetine 20 mg tablet Take 20 mg by mouth every morning. Yes No medication comments found. ALLERGIES No Known Allergies REVIEW OF SYSTEMS: PAIN ASSESSMENT: Pain Pain Location: Knee-Left Description: Dull Frequency: Intermittent Intervention/Comfort measure: Medication, Relaxation, Reposition General: No weight loss, malaise or fevers. Neuro: No history of TIA's, stroke, PRESS SUPERVISOR tumor, impaired sensorium, hemiplegia, paraplegia or quadraplegia. No neurological symptoms or problems. Respiratory: No history of current cough or dyspnea, or pneumonia in the past 6 weeks. No history of respiratory/pulmonary symptoms or problems. Cardiovascular: Positive for: Hypertension GI: No history of GI symptoms or problems. No history of esophageal varices, recent ascites, or ETOH greater than 2 drinks per day. : No history of dysuria, frequency or incontinence,, stones or chronic kidney disease GEndocrine: No history of diabetes. Has not taken steroids within the past 30 days. No history of endocrinological symptoms or problems. Hematology: Chronic anti-coagulation / platelet meds (Aspirin) Oncology: No history of CA metastasis, chemo within 30 days, or radiotherapy within 90 days. Has not lost 10% of body wt in 6 months. No history of oncological symptoms or problems. Psych: Depression Musculoskeletal: Joint pain Skin: Negative for lesions, rash and itching. Objective PHYSICAL EXAM: VITALS: BP 118/62 Pulse 58 Resp 20 Ht 5' 7 (1.70m) Wt 147 lb (66.7kg) SpO2 96% BMI 23.02 kg/(m^2). General: Alert and oriented, No acute distress, Healthy appearance Skin: Normal color, no rash, no lesions. Diagnostic tests reviewed for today's visit: Lab Value Units Date High Low HB No results within date range. HCT No results within date range. WBC No results within date range. PLT No results within date range. NA No results within date range. K No results within date range. GLUC No results within date range. BUN No results within date range. CREAT No results within date range. PTSEC No results within date range. INR No results within date range. APTT No results within date range. ALT No results within date range. AST No results within date range. TBILI No results within date range. TSH No results within date range. Lab Value Units Date High Low HCGQT No results within date range. UHCG No results within date range. HCG, BODY* No results within date range. Lab Value Units Date High Low ABORHD No results within date range. ABSCREEN No results within date range. No results found for: HBA1C PENDING Assessment/Plan I met Ledy and her today in [facility]. She is supposed to be non-weightbearing to the LLE but she can stand for a short period of time. She is able to bathe/dress herself and can do the dishes but not much else currently due to loose hardware. She denies CP or SOB with her typical activity prior to these surgeries. Her PCP told her to continue ASA which she will verify that Dr. Tracy is aware. Ledy is hard of hearing. METS: Limited most or all of the time (uses scooter, mobility device) Patient is non-weightbearing on LLE which makes ADLs difficult ANESTHESIA FINDINGS: Intubation History: No history of difficult intubation Significant Anesthesia Considerations: None Airway History: No abnormal airway history Planned Anesthetic: Per anesthesia choice Instructions Given to Patient: Instructions located in the after visit summary. Patient given verbal and written preop instructions and voices comprehension and compliance. SIGNATURE: Saniya Jimenez APRN.CNP PATIENT NAME: Ledy Ching DATE: October 08, 2023 TIME: 12:04 PM Summary: dos meds MEDICATION INSTRUCTIONS PRIOR TO SURGERY Please read below carefully for your personalized instructions. Medications: If you are on blood thinner or anticoagulants including aspirin, please confirm with your surgical team on when to stop these medications. Unless instructed differently by your surgical team, stay on all of your medications until your surgery. Pre-Surgery Med Instructions Medication Instructions aspirin 81 mg cap Follow Prescribers Instructions acetaminophen (TYLENOL) 500 mg tablet PRN if needed carvedilol (COREG) 3.125 mg tablet Take morning of surgery with a sip of water, no other fluids calcium carbonate (CALTRATE) 600 mg calcium (1,500 mg) tab Follow Surgeon's instructions ascorbic acid, vitamin C, (VITAMIN C) 500 mg tablet Follow Surgeon's instructions Cholecalciferol, Vitamin D3, 50 mcg (2,000 unit) cap Follow Surgeon's instructions lisinopril (ZESTRIL, PRINIVIL) 40 mg tablet DO NOT TAKE MORNING OF SURGERY omeprazole (PRILOSEC) 40 mg capsule hydroCHLOROthiazide (HYDRODIURIL, ESIDRIX) 50 mg tablet DO NOT TAKE MORNING OF SURGERY amLODIPine (NORVASC) 10 mg tablet Take morning of surgery with a sip of water, no other fluids vitamin A (AQUASOL A) 10,000 unit capsule Follow Surgeon's instructions traZODone (DESYREL) 100 mg tablet meloxicam (MOBIC) 15 mg tablet Follow Surgeon's instructions simvastatin 20 mg tablet paroxetine 20 mg tablet Take morning of surgery with a sip of water, no other fluids If you have any medication changes between receiving these instructions and your surgery date, please provide this updated information with the nurse who calls you the week day prior to your surgical procedure so we can update your list and provide you with updated instructions for the morning of your procedure. [place] 10/15/23 RevisionLTKA (initial done 04/2023, repair/revision? 08/19/23 at [place]) 78 yo female with HX: diverticulosis and diverticulitis, HTN, arthritis. documented in this encounter [facility] 10-08-2023 Note HNO ID: [id number] Author: SANIYA JIMENEZ APRN.CNP Service: ? Author Type: Nurse Practitioner Type: Progress Notes Filed: 10/20/2023 16:10 Note Text: PACC Consult SERVICE DATE: 10/08/2023 SERVICE TIME: 12:04 PM PRIMARY CARE PHYSICIAN: Saima Mendoza MD REASON FOR VISIT: Ledy Ching is a 78 year old female who is scheduled for L TKA at the request of Dr. TRACY for consultation. My final recommendation will be communicated back to the requesting physician by way of shared medical record or letter. The patient has the following: ACTIVE PROBLEM LIST Chronic Midline Low Back Pain With Bilateral Sciatica Fall Hypertension Abnormal Gait Allergic Rhinitis Cardiac Murmur Current Moderate Episode of Major Depressive Disorder (Hcc) Endometriosis Fluttering Heart Fracture of Second Cervical Vertebra (Hcc) Generalized Osteoarthritis of Multiple Sites Gerd (Gastroesophageal Reflux Disease) History of Hypertension History of Osteopenia Hyperlipidemia Inflammatory Arthritis Insomnia Lower Gastrointestinal Hemorrhage Menopause Present Nasal Congestion Osteopenia Polyp of Colon Vitamin D Deficiency Subjective CHIEF COMPLAINT: knee pain 78 yo female with HX: diverticulosis and diverticulitis, HTN, arthritis. PAST MEDICAL HISTORY No date: Arthritis No date: Diverticulitis No date: Diverticulosis No date: High cholesterol No date: Hypertension PAST SURGICAL HISTORY 1979: HYSTERECTOMY HX Comment: partial 2020: KNEE SURGERY HX Comment: TOTAL LEFT KNEE 2020 [place] 08/19/2023: KNEE SURGERY HX Comment: REVISION LEFT TOTAL KNEE AT [place] No family history on file. SOCIAL HISTORY: Social History Tobacco Use Smoking status: Never Passive exposure: Never Substance Use Topics Alcohol use: No Drug use: Never Prior to Admission medications as of 10/08/23 1118 Medication Sig Last Dose Taking aspirin 81 mg cap Take by mouth once daily. TAKES A PREVENTATIVE/ PACC appoint. 10/08/23, pt states PCP/ Dr. Saima Mendoza does not want her to stop taiking; instructed to inform Dr. Tracy Yes acetaminophen (TYLENOL) 500 mg tablet Take 500 mg by mouth two times a day. Yes carvedilol (COREG) 3.125 mg tablet Take 12.5 mg by mouth two times a day with meals. PACC appoint. Pt states she only takes 1 x day Yes calcium carbonate (CALTRATE) 600 mg calcium (1,500 mg) tab Take by mouth. STOPPED FOR SURGERY LAST DOSE 09/30 Yes ascorbic acid, vitamin C, (VITAMIN C) 500 mg tablet Take by mouth. STOPPED FOR SURGERY 09/30 LAST DOSE Yes Cholecalciferol, Vitamin D3, 50 mcg (2,000 unit) cap Take by mouth. STOPPED FOR SURGERY LAST DOSE 09/30 Yes lisinopril (ZESTRIL, PRINIVIL) 40 mg tablet Take 40 mg by mouth every morning. Yes omeprazole (PRILOSEC) 40 mg capsule Take 40 mg by mouth every evening. Yes hydroCHLOROthiazide (HYDRODIURIL, ESIDRIX) 50 mg tablet Take 50 mg by mouth every morning. Yes amLODIPine (NORVASC) 10 mg tablet every morning. Yes vitamin A (AQUASOL A) 10,000 unit capsule Take by mouth. STOPPED 09/30 FOR SURGERY Yes traZODone (DESYREL) 100 mg tablet Take 100 mg by mouth daily at bedtime. Yes meloxicam (MOBIC) 15 mg tablet Take 15 mg by mouth once daily. STOPPED FOR SURGERY 10/01/23 Yes simvastatin 20 mg tablet Take 20 mg by mouth daily at bedtime. Yes paroxetine 20 mg tablet Take 20 mg by mouth every morning. Yes No medication comments found. ALLERGIES No Known Allergies REVIEW OF SYSTEMS: PAIN ASSESSMENT: Pain Pain Location: Knee-Left Description: Dull Frequency: Intermittent Intervention/Comfort measure: Medication, Relaxation, Reposition General: No weight loss, malaise or fevers. Neuro: No history of TIA's, stroke, PRESS SUPERVISOR tumor, impaired sensorium, hemiplegia, paraplegia or quadraplegia. No neurological symptoms or problems. Respiratory: No history of current cough or dyspnea, or pneumonia in the past 6 weeks. No history of respiratory/pulmonary symptoms or problems. Cardiovascular: Positive for: Hypertension GI: No history of GI symptoms or problems. No history of esophageal varices, recent ascites, or ETOH greater than 2 drinks per day. : No history of dysuria, frequency or incontinence,, stones or chronic kidney disease GEndocrine: No history of diabetes. Has not taken steroids within the past 30 days. No history of endocrinological symptoms or problems. Hematology: Chronic anti-coagulation / platelet meds (Aspirin) Oncology: No history of CA metastasis, chemo within 30 days, or radiotherapy within 90 days. Has not lost 10% of body wt in 6 months. No history of oncological symptoms or problems. Psych: Depression Musculoskeletal: Joint pain Skin: Negative for lesions, rash and itching. Objective PHYSICAL EXAM: VITALS: BP 118/62 Pulse 58 Resp 20 Ht 5' 7 (1.70m) Wt 147 lb (66.7kg) SpO2 96% BMI 23.02 kg/(m2). General: Alert and oriented, No acute distress, Healthy appearance Skin: Normal (more content not included)... [facility] 10-08-2023 Note HNO ID: [id number] Author: LV BOBO RN Service: Nursing Author Type: Registered Nurse Type: Plan of Care Filed: 10/08/2023 11:56 Note Text: Pt reports PCP wants her to stay on aspirin for upcoming surgery. She has not informed Dr. Tracy of this. Called [facility]/ Dr. Tracy to inform. [facility] 10-08-2023 Instructions Saniya Jimenez APRN.JEWELRY BENCH MOLDER - 10/08/2023 11:48 AM EDT MEDICATION INSTRUCTIONS PRIOR TO SURGERY Please read below carefully for your personalized instructions. Medications: If you are on blood thinner or anticoagulants including aspirin, please confirm with your surgical team on when to stop these medications. Unless instructed differently by your surgical team, stay on all of your medications until your surgery. Pre-Surgery Med Instructions Medication Instructions aspirin 81 mg cap Follow Prescribers Instructions acetaminophen (TYLENOL) 500 mg tablet PRN if needed carvedilol (COREG) 3.125 mg tablet Take morning of surgery with a sip of water, no other fluids calcium carbonate (CALTRATE) 600 mg calcium (1,500 mg) tab Follow Surgeon's instructions ascorbic acid, vitamin C, (VITAMIN C) 500 mg tablet Follow Surgeon's instructions Cholecalciferol, Vitamin D3, 50 mcg (2,000 unit) cap Follow Surgeon's instructions lisinopril (ZESTRIL, PRINIVIL) 40 mg tablet DO NOT TAKE MORNING OF SURGERY omeprazole (PRILOSEC) 40 mg capsule hydroCHLOROthiazide (HYDRODIURIL, ESIDRIX) 50 mg tablet DO NOT TAKE MORNING OF SURGERY amLODIPine (NORVASC) 10 mg tablet Take morning of surgery with a sip of water, no other fluids vitamin A (AQUASOL A) 10,000 unit capsule Follow Surgeon's instructions traZODone (DESYREL) 100 mg tablet meloxicam (MOBIC) 15 mg tablet Follow Surgeon's instructions simvastatin 20 mg tablet paroxetine 20 mg tablet Take morning of surgery with a sip of water, no other fluids If you have any medication changes between receiving these instructions and your surgery date, please provide this updated information with the nurse who calls you the week day prior to your surgical procedure so we can update your list and provide you with updated instructions for the morning of your procedure. documented in this encounter [facility] 10-08-2023 Note HNO ID: [id number] Author: SANIYA JIMENEZ APRN.CNP Service: ? Author Type: Nurse Practitioner Type: Progress Notes Filed: 10/08/2023 12:20 Note Text: Summary: dos meds MEDICATION INSTRUCTIONS PRIOR TO SURGERY Please read below carefully for your personalized instructions. Medications: If you are on blood thinner or anticoagulants including aspirin, please confirm with your surgical team on when to stop these medications. Unless instructed differently by your surgical team, stay on all of your medications until your surgery. Pre-Surgery Med Instructions Medication Instructions aspirin 81 mg cap Follow Prescribers Instructions acetaminophen (TYLENOL) 500 mg tablet PRN if needed carvedilol (COREG) 3.125 mg tablet Take morning of surgery with a sip of water, no other fluids calcium carbonate (CALTRATE) 600 mg calcium (1,500 mg) tab Follow Surgeon's instructions ascorbic acid, vitamin C, (VITAMIN C) 500 mg tablet Follow Surgeon's instructions Cholecalciferol, Vitamin D3, 50 mcg (2,000 unit) cap Follow Surgeon's instructions lisinopril (ZESTRIL, PRINIVIL) 40 mg tablet DO NOT TAKE MORNING OF SURGERY omeprazole (PRILOSEC) 40 mg capsule hydroCHLOROthiazide (HYDRODIURIL, ESIDRIX) 50 mg tablet DO NOT TAKE MORNING OF SURGERY amLODIPine (NORVASC) 10 mg tablet Take morning of surgery with a sip of water, no other fluids vitamin A (AQUASOL A) 10,000 unit capsule Follow Surgeon's instructions traZODone (DESYREL) 100 mg tablet meloxicam (MOBIC) 15 mg tablet Follow Surgeon's instructions simvastatin 20 mg tablet paroxetine 20 mg tablet Take morning of surgery with a sip of water, no other fluids If you have any medication changes between receiving these instructions and your surgery date, please provide this updated information with the nurse who calls you the week day prior to your surgical procedure so we can update your list and provide you with updated instructions for the morning of your procedure. [facility] 10-08-2023 Note HNO ID: [id number] Author: SANIYA JIMENEZ APRN.GRACIE Service: ? Author Type: Nurse Practitioner Type: Progress Notes Filed: 10/08/2023 12:20 Note Text: [place] 10/15/23 RevisionLTKA (initial done 04/2023, repair/revision? 08/19/23 at [place]) 78 yo female with HX: diverticulosis and diverticulitis, HTN, arthritis. [facility] 08-21-2023 Hospital Discharge instructions Patient Education 08/21/2023 15:39:58 Tendon Repair, Care After Tendon Repair, Care After This sheet gives you information about how to care for yourself after your procedure. Your health care provider may also give you more specific instructions. If you have problems or questions, contact your health care provider. What can I expect after the procedure? After the procedure, it is common to have: Soreness or pain. Stiffness. Limited range of motion in the joint where the tendon is repaired. Follow these instructions at home: If you have a splint or brace: Wear the splint or brace as told by your health care provider. Remove it only as told by your health care provider. Loosen the splint or brace if your fingers or toes tingle, become numb, or turn cold and blue. Keep the splint or brace clean and dry. If you have a cast: Do not stick anything inside the cast to scratch your skin. Doing that increases your risk of infection. Check the skin around the cast every day. Tell your health care provider about any concerns. You may put lotion on dry skin around the edges of the cast. Do not put lotion on the skin underneath the cast. Keep the cast clean and dry. Bathing Do not take baths, swim, or use a hot tub until your health care provider approves. Ask your health care provider if you may take showers. You may only be allowed to take sponge baths. If your splint, brace, or cast is not waterproof: ?Do not let it get wet. ?Cover it with a watertight covering when you take a bath or a shower. Keep the bandage (dressing) dry until your health care provider says it can be removed. Medicines Take vvnx-vxz-ikxqvrf and prescription medicines only as told by your health care provider. Do not drive or use heavy machinery while taking prescription pain medicine. Incision care Follow instructions from your health care provider about how to take care of your incision. Make sure you: ?Wash your hands with soap and water before you change your dressing. If soap and water are not available, use hand restaurant manager. ?Change your dressing as told by your health care provider. ?Leave stitches (sutures), skin glue, or adhesive strips in place. These skin closures may need to stay in place for 2 weeks or longer. If adhesive strip edges start to loosen and curl up, you may trim the loose edges. Do not remove adhesive strips completely unless your health care provider tells you to do that. Check your incision area every day for signs of infection. Check for: ?Redness, swelling, or pain. ?Fluid or blood. ?Warmth. ?Pus or a bad smell. Managing pain, stiffness, and swelling If directed, put ice on the affected area. ?If you have a removable splint or brace, remove it as told by your health care provider. ?Put ice in a plastic bag. ?Place a towel between your skin and the bag, or between your cast and the bag. ?Leave the ice on for 20 minutes, 2 3 times a day. Move your fingers or toes often to avoid stiffness and to lessen swelling. Raise (elevate) the injured area above the level of your heart while you are sitting or lying down. Activity Rest as told by your health care provider. Ask your health care provider what activities are safe for you during recovery, and ask what activities you need to avoid. Do not lift anything that is heavier than 10 lb (4.5 kg), or the limit that you are told, until your health care provider says that it is safe. Do not use the injured limb to support your body weight until your health care provider says that you can. If physical therapy was prescribed, do exercises as directed. Doing exercises may help to improve movement and flexibility (range of motion). General instructions Do not put pressure on any part of the cast or splint until it is fully hardened. This may take several hours. Do not use any products that contain nicotine or tobacco, such as cigarettes and e-cigarettes. These can delay tendon healing. If you need help quitting, ask your health care provider. Ask your health care provider when it is safe to drive if you have a splint, brace, sling, or cast on your arm or leg. If you are taking prescription pain medicine, take actions to prevent or treat constipation. Your health care provider may recommend that you: ?Drink enough fluid to keep your urine pale yellow. ?Eat foods that are high in fiber, such as fresh fruits and vegetables, whole grains, and beans. ?Limit foods that are high in fat and processed sugars, such as fried or sweet foods. ?Take an dier-eqw-imryexr or prescription medicine for constipation. Keep all follow-up visits as told by your health care provider. This is important. Contact a health care provider if: You have redness, swelling, or pain at your incision site. You have fluid or blood coming from your incision site. Your incision feels warm to the touch. You have pus coming from your incision site. You have a bad smell coming from: ?The incision site or dressing. ?Underneath your cast or splint. You have a fever. Your stiffness or movement is not improving. Get help right away if: You have trouble breathing. You have chest pain. Your heart beats more quickly than normal, or you feel it skipping beats. You have severe pain. Summary After the procedure, it is common to have pain, stiffness, and limited range of motion. If your splint, brace, or cast is not waterproof, do not let it get wet. Contact your health care provider if you have blood, fluid, or pus coming from your incision site. This information is not intended to replace advice given to you by your health care provider. Make sure you discuss any questions you have with your health care provider. Document Released: 09/07/2014 Document Revised: 02/04/2018 Document Reviewed: 02/04/2018 [employer] Patient Education 2020 [employer]. 08/21/2023 15:39:57 Tendon Repair Tendon Repair Tendon repair is surgery to fix a tendon that is torn (ruptured). The repair is done by reconnecting the torn ends of the tendon. Tendons are like cords, and they connect muscles to bones. Tendons that commonly rupture and need surgical repair include those in the: Knee area (patellar tendon or quadriceps tendon). Elbow (triceps tendon). Shoulder (biceps tendon). Fingers (flexor tendons). Ankle (peroneal tendon or posterior tibial tendon). You may need to wear a cast, splint, or brace for a few weeks after surgery while the injury heals. Tell a health care provider about: Any allergies you have. All medicines you are taking, including vitamins, herbs, eye drops, creams, and qbtz-wsh-kntjykg medicines. Any problems you or family members have had with anesthetic medicines. Any blood disorders you have. Any surgeries you have had. Any medical conditions you have. Whether you are or may be . What are the risks? Generally, this is a safe procedure. However, problems may occur, including: Infection. Bleeding. Allergic reactions to medicines. Damage to nearby structures, such as nerves, causing numbness. Stiffness or loss of function at the joint. Buildup of scar tissue. Re-rupture of the tendon. Blood clot. What happens before the procedure? Medicines Ask your health care provider about: ?Changing or stopping your regular medicines. This is especially important if you are taking diabetes medicines or blood thinners. ?Taking medicines such as aspirin and ibuprofen. These medicines can thin your blood. Do not take these medicines unless your health care provider tells you to take them. ?Taking pttc-eiv-nxqasma medicines, vitamins, herbs, and supplements. Staying hydrated Follow instructions from your health care provider about hydration, which may include: Up to 2 hours before the procedure you may continue to drink clear liquids, such as water, clear fruit juice, black coffee, and plain tea. Eating and drinking restrictions Follow instructions from your health care provider about eating and drinking, which may include: 8 hours before the procedure stop eating heavy meals or foods such as meat, fried foods, or fatty foods. 6 hours before the procedure stop eating light meals or foods, such as toast or cereal. 6 hours before the procedure stop drinking milk or drinks that contain milk. 2 hours before the procedure stop drinking clear liquids. General instructions Do not use any products that contain nicotine or tobacco, such as cigarettes and e-cigarettes. These can delay tendon healing. If you need help quitting, ask your health care provider. Plan to have someone take you home from the hospital or clinic. Plan to have a responsible adult care for you for at least 24 hours after you leave the hospital or clinic. This is important. Ask your health care provider how your surgical site will be marked or identified. You may be asked to shower with a germ-killing soap. Ask your health care provider what steps will be taken to help prevent infection. These may include: ?Removing hair at the surgery site. ? Washing skin with a germ-killing soap. ? Antibiotic medicine. What happens during the procedure? An IV will be inserted into one of your veins. You will be given one of the following: ?A medicine to numb the area (local anesthetic). ?A medicine that is injected into an area of your body to numb everything below the injection site (regional anesthetic). ?A medicine to make you fall asleep (general anesthetic). The surgeon will make a small incision in the skin over the damaged tendon. The surgeon will then repair the tendon using one of these methods: ?If there is enough healthy tendon to work with, the surgeon will reconnect the torn ends of the tendon. ?If there is not enough healthy tissue, the surgeon may use a piece of tendon from another part of your body to reconnect the torn tendon. If necessary, the surgeon will attach the tendon to the surrounding tissues. Your incision will be closed with stitches (sutures), skin glue, or adhesive strips. A bandage (dressing) will be applied to cover the incision. The procedure may vary among health care providers and hospitals. What happens after the procedure? Your blood pressure, heart rate, breathing rate, and blood oxygen level will be monitored until you leave the hospital or clinic. You may have to wear a brace, splint, or cast to protect the healing tendon. You will be given pain medicine as needed. Ask your health care provider when it is safe to drive if you have a brace, splint, or cast on the injured area. Do not drive for 24 hours if you were given a sedative during your procedure. Summary Tendon repair surgery is done to repair a tendon that is torn (ruptured). This surgery is often done to repair tendons in a knee, elbow, shoulder, finger, or ankle. During the procedure, the surgeon will reconnect the torn ends of the tendon. After the procedure, you may need to wear a cast, splint, or brace to protect the healing tendon. This information is not intended to replace advice given to you by your health care provider. Make sure you discuss any questions you have with your health care provider. Document Released: 08/06/2001 Document Revised: 02/04/2018 Document Reviewed: 02/04/2018 [employer] Patient Education 2020 [employer]. 08/21/2023 14:57:30 5 - [facility] Post-op Instruction 09/2016 ([id number]) [facility] Post-operative Instructions PLEASE FOLLOW [facility] POST-OP INSTRUCTIONS GIVEN WATCH FOR SIGNS OF INFECTION: call the office ([phone]) if experencing any of the following: (Usually appears 36-48 hours after surgery) Increased temperature (101 degrees Fahrenheit or higher) Redness or swelling Increased uncontrolled pain Foul odor or drainage Calf discomfort Significant swelling Or if having any chest pain, shortness of breath, or difficulty breathing or swallowing call the office or go the nearest Emergency Room. If you have any questions, please call your doctor at the number listed on your follow up instructions. Form: 338A ([id number]) R: 06/30 Follow Up Care 08/12/2023 09:03:08 With:EJ CANNON PA-C, Orthopedic Address: [facility] [address] [place] [id number] When:09/04/2023 14:00:00 Comments:This is your post-op appointment. Follow-up as scheduled. [facility] 08-21-2023 Note Discharge Instructions Thank you for allowing [facility] to assist you with your healthcare needs. The following is important discharge information regarding your hospital visit. Your Care Team KELLY REBOLLEDO, SAIMA THOMAS, HELENA BECERRA-GRACIE Your Diagnosis Acute post-operative pain Hypertension Osteoarthritis Periprosthetic fracture around internal prosthetic left knee joint Rupture of left patellar tendon What to do next Follow Up Appointments Follow Up with JE CANNON PA-C, Orthopedic When:09/04/2023 02:00 PM EDT Where:[facility] [address] [place] [id number]- Additional Information: This is your post-op appointment. Follow-up as scheduled. The Following Activity and Diet Have Been Ordered for You Discharge Driving Restrictions - Ordered -- No driving permitted, 08/21/23 15:14:00 EDT Transfer of Care Activity - Ordered -- Activity As Tolerated, Toe-touch weightbearing with T ROM brace locked in extension with use of walker, 08/21/23 15:14:00 EDT Transfer of Care Diet - Ordered -- Type of Diet: Regular Diet, 08/21/23 15:14:00 EDT The Following Equipment Has Been Ordered for You Discharge Home Equipment Transfer of Care Wound Care - Ordered -- Dressing Type: *Other (specify in special instructions), Knee, left, Okay to remove Mepilex dressing on August 25, 2023. It is okay for patient to get dressing wet while on knee. Once dressing removed only use gentle soap and water over the incision.... The Following Treatments Have Been Ordered for You Discharge Labs No qualifying data available. Discharge Radiology No qualifying data available. Other Therapies Transfer of Care OT - Ordered -- Reason for therapy: Postoperative ORIF left patella fracture and extensor mechanism repair, Toe Touch weightbearing 6 weeks postoperatively. TROM brace locked in extension for 6 weeks postoperatively while walking and in bed. No range of motion of t... Transfer of Care PT - Ordered -- Reason for therapy: Postoperative ORIF left patella fracture and extensor mechanism repair, Toe-touch weightbearing 6 weeks post-operatively. TROM brace locked in extension for 6 weeks postoperatively while walking and in bed. No range of motion of... Post Acute Orders Transfer of Care Admission Level of Care - Ordered -- Level of Care SNF, 08/21/23 15:14:46 EDT Transfer of Care Code Status - Ordered -- Full Code, Constant Order Transfer of Care Communication Order - Ordered -- Expect less than 30 day stay., 08/21/23 15:14:46 EDT Transfer of Care Communication Order - Ordered -- DVT prophylaxis: Xarelto 10 mg daily for 2 weeks postoperatively. After 2 weeks will then begin aspirin 81 mg twice daily, 08/21/23 15:14:46 EDT Transfer of Care Orders Electronically Signed By - Ordered -- 08/21/23 15:14:00 EDT, MERCEDES LOCK MD Transfer of Care Prognosis - Ordered -- Good, Patient Aware: Yes Transfer of Care Rehab Potential - Ordered -- Rehab potential good, 08/21/23 15:14:46 EDT Allergies [facility] Medications Please ask your primary doctor or pharmacist before taking any other medication not listed, including over the counter drugs, herbal medications, vitamins and or supplements as they may interact with your home medications. What How Much When Why Instructions Last Dose New acetaminophen (Tylenol) 1,000 Milligram by mouth Every 8 hours Duration: 21 Days not to exceed 3000 mg/ day New DME (Immobilizer, Knee) 1 Topical Every day New oxyCODONE (oxyCODONE 5 mg oral tablet ( IMMEDIATE release )) See instructions Acute post-operative pain 1-2 tab(s) Oral q4h, As needed for as needed for pain Printed Prescription New rivaroxaban (Xarelto 10 mg oral tablet) 1 tab(s) by mouth Once a day Takes Xarelto for 2 weeks postoperatively for DVT prophylaxis. Once finished with Xarelto begin aspirin 81 mg twice daily Unchanged amLODIPine (amLODIPine 10 mg oral tablet) 1 tab(s) by mouth Once a day Unchanged ascorbic acid (Vitamin C 500 mg oral tablet) 1 tab(s) by mouth Once a day Unchanged calcium-vitamin D (Calcium Plus Vitamin D3 600 mg-12.5 mcg (500 intl units) oral capsule) 2 cap by mouth Once a day with food Unchanged carvedilol (carvedilol 3.125 mg oral tablet) 1 tab(s) by mouth Twice daily with meals Unchanged hydroCHLOROthiazide (hydroCHLOROthiazide 50 mg oral tablet) 1 tab(s) by mouth Every day Unchanged lisinopril (lisinopril 40 mg oral tablet) 1 tab(s) by mouth Every day Unchanged omeprazole (omeprazole 40 mg oral delayed release capsule) 1 cap by mouth Once a day Unchanged PARoxetine (PARoxetine 20 mg oral tablet) 1 tab(s) by mouth Every day Unchanged simvastatin (simvastatin 20 mg oral tablet) 1 tab(s) by mouth Daily at bedtime Unchanged traZODone (traZODone 100 mg oral tablet) 1 tab(s) by mouth Daily at bedtime Hold meloxicam until finished with Xarelto Unchanged vitamin E (vitamin E 400 intl units oral capsule) 1 cap by mouth Every day What How Much When Comments Stop Taking meloxicam (meloxicam 15 mg oral tablet) 1 tab(s) by mouth Once a day Please take this list to your next doctor s visit. Bring all medications you take, including over the counter medications, herbals and other supplements with you to your doctor s visit. Patients and families are reminded to discard old lists and to update any records with all medication providers or retail pharmacies. Medication Leaflets oxycodone (ox i KOE done) Oxaydo, OxyCONTIN, Roxicodone, RoxyBond, Xtampza ER What is the most important information I should know about oxycodone? MISUSE OF OPIOID MEDICINE CAN CAUSE ADDICTION, OVERDOSE, OR . Fatal side effects may occur if you also drink alcohol or use other drugs that cause drowsiness or slow breathing. Using opioid medicine during may cause life-threatening withdrawal symptoms in the . What is oxycodone? Oxycodone is an opioid pain medication used to treat moderate to severe pain. Oxycodone is usually given after other treatments did not work or were not tolerated. Extended-release oxycodone is for zjnufw-kzt-rthdg treatment of severe and chronic pain that requires longer treatment. This medicine is not for use on an as-needed basis. Oxycodone may also be used for purposes not listed in this medication guide. What should I discuss with my healthcare provider before taking oxycodone? You should not use oxycodone if you are allergic to it, or if you have severe asthma, breathing problems or a stomach or bowel obstruction (including paralytic ileus). Tell your doctor if you have ever had: other breathing problems, sleep apnea (breathing that stops during sleep); a head injury, brain tumor, high pressure inside the skull, or seizures, drug or alcohol addiction, or mental illness; if you have used an MAO inhibitor in the past 14 days, such as isocarboxazid, linezolid, methylene blue injection, phenelzine, or tranylcypromine; urination problems, problems with your gallbladder, pancreas, thyroid, or adrenal gland; or liver or kidney disease. Most forms of oxycodone are not approved for use in people under 18 years old. The extended-release tablets should not be given to a child younger than 11 years old. Tell your doctor if you also use stimulant medicine, opioid medicine, herbal products, or medicine for depression, mental illness, Parkinson's disease, migraine headaches, serious infections, or prevention of nausea and vomiting. An interaction with oxycodone could cause a serious condition called serotonin syndrome. May harm an unborn baby. Tell your doctor if you are or plan to become . If you use oxycodone during , your baby could be born with life-threatening withdrawal symptoms, and may need medical treatment for several weeks. Do not breastfeed. Oxycodone in breast milk can cause life-threatening side effects in a nursing baby. Long-term oxycodone may affect fertility in men or women. could be harder to achieve while either parent is using this medicine. How should I take oxycodone? Follow the directions on your prescription label and read all medication guides or instruction sheets. Never use oxycodone in larger amounts, or for longer than prescribed. Tell your doctor if you feel an increased urge to use more of this medicine. Never share opioid medicine with another person, especially someone with a history of drug addiction. MISUSE CAN CAUSE ADDICTION, OVERDOSE, OR . Keep the medicine where others cannot get to it. Selling or giving away this medicine is against the law. Never crush a pill or use the liquid to inhale the mixture or inject it into your vein. This could result in . Your dose needs may change if you switch to a different brand, strength, or form of this medicine. Avoid medication errors by using exactly as directed on the label, or as prescribed by your doctor. Stop taking all other cxfnyg-brw-jujqi opioid pain medicines when you start taking extended-release oxycodone. Swallow the extended-release forms whole to avoid exposure to a potentially fatal overdose. Do not crush, chew, break, open, or dissolve. Take the extended-release capsules with food. Read and carefully follow the instructions for use on how to prepare and take this medicine if you cannot swallow extended release capsules whole or you use a feeding tube. Ask your doctor or pharmacist if you don't understand these instructions. Measure liquid medicine with the supplied measuring device (not a kitchen spoon). You may be given other medications to help prevent or treat certain side effects. You may have withdrawal symptoms if you stop using oxycodone suddenly. Ask your doctor before stopping the medicine. Store at room temperature away from moisture and heat. Keep your medicine in a place where no one can use it improperly. Do not keep leftover medicine. Just one dose can cause in someone using it accidentally or improperly. Ask your pharmacist about a drug take-back program, or flush the unused medicine down the toilet. What happens if I miss a dose? Since oxycodone is used for pain, you are not likely to miss a dose. Skip any missed dose if it is almost time for your next dose. Do not use two doses at one time. What happens if I overdose? Seek emergency medical attention or call the Poison Help line at . An overdose can be fatal, especially in a child or person using opioid medicine without a prescription. Your doctor may recommend you get naloxone (a medicine to reverse an opioid overdose) and keep it with you at all times. A person caring for you can give the naloxone if you stop breathing or don't wake up. Your caregiver must still get emergency medical help and may need to perform CPR (cardiopulmonary resuscitation) on you while waiting for help to arrive. Anyone can buy naloxone from a pharmacy or local health department. Make sure any person caring for you knows where you keep naloxone and how to use it. What should I avoid while taking oxycodone? Do not drink alcohol or any products that contain alcohol. Dangerous side effects or could occur. Avoid driving or hazardous activity until you know how this medicine will affect you. Dizziness or drowsiness can causing falls, accidents, or severe injuries. Also avoid getting up too fast from a sitting or lying position, or you may feel dizzy. What are the possible side effects of oxycodone? Get emergency medical help if you have signs of an allergic reaction: hives, difficult breathing, swelling of your face, lips, tongue, or throat. Opioid medicine can slow or stop your breathing, and may occur, especially if you drink alcohol or use other drugs that cause drowsiness or slow breathing. A person caring for you should give naloxone and/or seek emergency medical attention if you have slow breathing with long pauses, blue colored lips, or if you are hard to wake up. Call your doctor at once if you have: slow heart rate, weak pulse, fainting, slow breathing (breathing may stop); chest pain, fast or pounding heartbeats; a seizure, extreme drowsiness; or decreased adrenal gland hormones--nausea, vomiting, stomach pain, loss of appetite, feeling tired or light-headed, muscle or joint pain, skin discoloration, craving salty foods. Serious breathing problems may be more likely in older adults and in those who are debilitated or have wasting syndrome or chronic breathing disorders. Seek medical attention right away if you have symptoms of serotonin syndrome, such as: agitation, hallucinations, fever, sweating, shivering, fast heart rate, muscle stiffness, twitching, loss of coordination, nausea, vomiting, or diarrhea. Common side effects may include: sleep problems (insomnia), itching; drowsiness, headache, dizziness, tiredness; or constipation, stomach pain, nausea, vomiting. This is not a complete list of side effects and others may occur. Call your doctor for medical advice about side effects. You may report side effects to FDA at 0-587-WFR-5360. What other drugs will affect oxycodone? You may have a fatal oxycodone overdose if you start or stop using certain medicines. Tell your doctor about all your medications. Tell your doctor about all your medications especially if you use medicine to treat HIV, antibiotic, antifungal medication, or seizure medication. Many other drugs can be dangerous when used with opioid medicine. Tell your doctor if you also use: medicine for allergies, asthma, blood pressure, motion sickness, irritable bowel, or overactive bladder; other opioid medicines, a benzodiazepine sedative like Valium, Klonopin, or Xanax; sleep medicine, muscle relaxers, or other drugs that make you drowsy; or drugs that affect serotonin, such as antidepressants, stimulants, or medicine for migraines or Parkinson's disease. This list is not complete and many other drugs may affect oxycodone. This includes prescription and ndnx-ocl-awrrezd medicines, vitamins, and herbal products. Not all possible drug interactions are listed here. Where can I get more information? Your doctor or pharmacist can provide more information about oxycodone. Remember, keep this and all other medicines out of the reach of children, never share your medicines with others, and use this medication only for the indication prescribed. Every effort has been made to ensure that the information provided by [employer] ('[employer]') is accurate, up-to-date, and complete, but no guarantee is made to that effect. Drug information contained herein may be time sensitive. [employer] information has been compiled for use by healthcare practitioners and consumers in the [place] and therefore [employer] does not warrant that uses outside of the [place] are appropriate, unless specifically indicated otherwise. [employer] drug information does not endorse drugs, diagnose patients or recommend therapy. [employer] drug information is an informational resource designed to assist licensed healthcare practitioners in caring for their patients and/or to serve consumers viewing this service as a supplement to, and not a substitute for, the expertise, skill, knowledge and judgment of healthcare practitioners. The absence of a warning for a given drug or drug combination in no way should be construed to indicate that the drug or drug combination is safe, effective or appropriate for any given patient. [employer] does not assume any responsibility for any aspect of healthcare administered with the aid of information [employer] provides. The information contained herein is not intended to cover all possible uses, directions, precautions, warnings, drug interactions, allergic reactions, or adverse effects. If you have questions about the drugs you are taking, check with your doctor, nurse or pharmacist. Copyright 8540-5324 [employer]. Version: 17.. Revision Date: 03/18/2023. Education Materials Tendon Repair, Care After This sheet gives you information about how to care for yourself after your procedure. Your health care provider may also give you more specific instructions. If you have problems or questions, contact your health care provider. What can I expect after the procedure? After the procedure, it is common to have: Soreness or pain. Stiffness. Limited range of motion in the joint where the tendon is repaired. Follow these instructions at home: If you have a splint or brace: Wear the splint or brace as told by your health care provider. Remove it only as told by your health care provider. Loosen the splint or brace if your fingers or toes tingle, become numb, or turn cold and blue. Keep the splint or brace clean and dry. If you have a cast: Do not stick anything inside the cast to scratch your skin. Doing that increases your risk of infection. Check the skin around the cast every day. Tell your health care provider about any concerns. You may put lotion on dry skin around the edges of the cast. Do not put lotion on the skin underneath the cast. Keep the cast clean and dry. Bathing Do not take baths, swim, or use a hot tub until your health care provider approves. Ask your health care provider if you may take showers. You may only be allowed to take sponge baths. If your splint, brace, or cast is not waterproof: ? Do not let it get wet. ? Cover it with a watertight covering when you take a bath or a shower. Keep the bandage (dressing) dry until your health care provider says it can be removed. Medicines Take kqso-rhp-zfzmjjt and prescription medicines only as told by your health care provider. Do not drive or use heavy machinery while taking prescription pain medicine. Incision care Follow instructions from your health care provider about how to take care of your incision. Make sure you: ? Wash your hands with soap and water before you change your dressing. If soap and water are not available, use hand restaurant manager. ? Change your dressing as told by your health care provider. ? Leave stitches (sutures), skin glue, or adhesive strips in place. These skin closures may need to stay in place for 2 weeks or longer. If adhesive strip edges start to loosen and curl up, you may trim the loose edges. Do not remove adhesive strips completely unless your health care provider tells you to do that. Check your incision area every day for signs of infection. Check for: ? Redness, swelling, or pain. ? Fluid or blood. ? Warmth. ? Pus or a bad smell. Managing pain, stiffness, and swelling If directed, put ice on the affected area. ? If you have a removable splint or brace, remove it as told by your health care provider. ? Put ice in a plastic bag. ? Place a towel between your skin and the bag, or between your cast and the bag. ? Leave the ice on for 20 minutes, 2 3 times a day. Move your fingers or toes often to avoid stiffness and to lessen swelling. Raise (elevate) the injured area above the level of your heart while you are sitting or lying down. Activity Rest as told by your health care provider. Ask your health care provider what activities are safe for you during recovery, and ask what activities you need to avoid. Do not lift anything that is heavier than 10 lb (4.5 kg), or the limit that you are told, until your health care provider says that it is safe. Do not use the injured limb to support your body weight until your health care provider says that you can. If physical therapy was prescribed, do exercises as directed. Doing exercises may help to improve movement and flexibility (range of motion). General instructions Do not put pressure on any part of the cast or splint until it is fully hardened. This may take several hours. Do not use any products that contain nicotine or tobacco, such as cigarettes and e-cigarettes. These can delay tendon healing. If you need help quitting, ask your health care provider. Ask your health care provider when it is safe to drive if you have a splint, brace, sling, or cast on your arm or leg. If you are taking prescription pain medicine, take actions to prevent or treat constipation. Your health care provider may recommend that you: ? Drink enough fluid to keep your urine pale yellow. ? Eat foods that are high in fiber, such as fresh fruits and vegetables, whole grains, and beans. ? Limit foods that are high in fat and processed sugars, such as fried or sweet foods. ? Take an btsx-kvv-bqfdkat or prescription medicine for constipation. Keep all follow-up visits as told by your health care provider. This is important. Contact a health care provider if: You have redness, swelling, or pain at your incision site. You have fluid or blood coming from your incision site. Your incision feels warm to the touch. You have pus coming from your incision site. You have a bad smell coming from: ? The incision site or dressing. ? Underneath your cast or splint. You have a fever. Your stiffness or movement is not improving. Get help right away if: You have trouble breathing. You have chest pain. Your heart beats more quickly than normal, or you feel it skipping beats. You have severe pain. Summary After the procedure, it is common to have pain, stiffness, and limited range of motion. If your splint, brace, or cast is not waterproof, do not let it get wet. Contact your health care provider if you have blood, fluid, or pus coming from your incision site. This information is not intended to replace advice given to you by your health care provider. Make sure you discuss any questions you have with your health care provider. Document Released: 09/07/2014 Document Revised: 02/04/2018 Document Reviewed: 02/04/2018 [employer] Patient Education 2020 [employer] Tendon Repair Tendon repair is surgery to fix a tendon that is torn (ruptured). The repair is done by reconnecting the torn ends of the tendon. Tendons are like cords, and they connect muscles to bones. Tendons that commonly rupture and need surgical repair include those in the: Knee area (patellar tendon or quadriceps tendon). Elbow (triceps tendon). Shoulder (biceps tendon). Fingers (flexor tendons). Ankle (peroneal tendon or posterior tibial tendon). You may need to wear a cast, splint, or brace for a few weeks after surgery while the injury heals. Tell a health care provider about: Any allergies you have. All medicines you are taking, including vitamins, herbs, eye drops, creams, and grps-vmf-nqptgwt medicines. Any problems you or family members have had with anesthetic medicines. Any blood disorders you have. Any surgeries you have had. Any medical conditions you have. Whether you are or may be . What are the risks? Generally, this is a safe procedure. However, problems may occur, including: Infection. Bleeding. Allergic reactions to medicines. Damage to nearby structures, such as nerves, causing numbness. Stiffness or loss of function at the joint. Buildup of scar tissue. Re-rupture of the tendon. Blood clot. What happens before the procedure? Medicines Ask your health care provider about: ? Changing or stopping your regular medicines. This is especially important if you are taking diabetes medicines or blood thinners. ? Taking medicines such as aspirin and ibuprofen. These medicines can thin your blood. Do not take these medicines unless your health care provider tells you to take them. ? Taking amsx-nbl-agttfts medicines, vitamins, herbs, and supplements. Staying hydrated Follow instructions from your health care provider about hydration, which may include: Up to 2 hours before the procedure you may continue to drink clear liquids, such as water, clear fruit juice, black coffee, and plain tea. Eating and drinking restrictions Follow instructions from your health care provider about eating and drinking, which may include: 8 hours before the procedure stop eating heavy meals or foods such as meat, fried foods, or fatty foods. 6 hours before the procedure stop eating light meals or foods, such as toast or cereal. 6 hours before the procedure stop drinking milk or drinks that contain milk. 2 hours before the procedure stop drinking clear liquids. General instructions Do not use any products that contain nicotine or tobacco, such as cigarettes and e-cigarettes. These can delay tendon healing. If you need help quitting, ask your health care provider. Plan to have someone take you home from the hospital or clinic. Plan to have a responsible adult care for you for at least 24 hours after you leave the hospital or clinic. This is important. Ask your health care provider how your surgical site will be marked or identified. You may be asked to shower with a germ-killing soap. Ask your health care provider what steps will be taken to help prevent infection. These may include: ? Removing hair at the surgery site. ? Washing skin with a germ-killing soap. ? Antibiotic medicine. What happens during the procedure? An IV will be inserted into one of your veins. You will be given one of the following: ? A medicine to numb the area (local anesthetic). ? A medicine that is injected into an area of your body to numb everything below the injection site (regional anesthetic). ? A medicine to make you fall asleep (general anesthetic). The surgeon will make a small incision in the skin over the damaged tendon. The surgeon will then repair the tendon using one of these methods: ? If there is enough healthy tendon to work with, the surgeon will reconnect the torn ends of the tendon. ? If there is not enough healthy tissue, the surgeon may use a piece of tendon from another part of your body to reconnect the torn tendon. If necessary, the surgeon will attach the tendon to the surrounding tissues. Your incision will be closed with stitches (sutures), skin glue, or adhesive strips. A bandage (dressing) will be applied to cover the incision. The procedure may vary among health care providers and hospitals. What happens after the procedure? Your blood pressure, heart rate, breathing rate, and blood oxygen level will be monitored until you leave the hospital or clinic. You may have to wear a brace, splint, or cast to protect the healing tendon. You will be given pain medicine as needed. Ask your health care provider when it is safe to drive if you have a brace, splint, or cast on the injured area. Do not drive for 24 hours if you were given a sedative during your procedure. Summary Tendon repair surgery is done to repair a tendon that is torn (ruptured). This surgery is often done to repair tendons in a knee, elbow, shoulder, finger, or ankle. During the procedure, the surgeon will reconnect the torn ends of the tendon. After the procedure, you may need to wear a cast, splint, or brace to protect the healing tendon. This information is not intended to replace advice given to you by your health care provider. Make sure you discuss any questions you have with your health care provider. Document Released: 08/06/2001 Document Revised: 02/04/2018 Document Reviewed: 02/04/2018 Elsevier Patient Education 2020 [employer] [facility] Post-operative Instructions PLEASE FOLLOW [facility] POST-OP INSTRUCTIONS GIVEN WATCH FOR SIGNS OF INFECTION: call the office ([phone]) if experencing any of the following: (Usually appears 36-48 hours after surgery) Increased temperature (101 degrees Fahrenheit or higher) Redness or swelling Increased uncontrolled pain Foul odor or drainage Calf discomfort Significant swelling Or if having any chest pain, shortness of breath, or difficulty breathing or swallowing call the office or go the nearest Emergency Room. If you have any questions, please call your doctor at the number listed on your follow up instructions. Form: 338A ([id number]) R: 06/30 Additional Information VACCINATE! IT SAVES LIVES! Members of the community who have not yet received the COVID-19 vaccine and would like to receive it can visit one of [facility] vaccine clinics. There are many vaccine clinic locations within the [facility]. For locations and available times, please visit [email or web address] .[email or web address] It is important to note that some COVID mobile vaccine clinics are held outdoors and may be canceled in rainy or stormy conditions. To learn more about pediatric vaccinations (ages 5-11), we invite you to visit the [facility] webpage. [email or web address]://www.[facility]s.org/page [email or web address]-[place]owca-Nioflbakcxa-Frequently -Asked-Questions.html To learn more about the COVID-19 vaccine, we invite you to visit the CDC website for a list of frequently asked questions.https://www.cdc.gov/coron avirus/2019-ncov/vaccines/faq.html [facility] Patient Portal Access Instructions: Stay connected with your healthcare team and access your personal medical information anytime with the [facility] Patient Portal. Please follow the directions below to create your [facility] account: 1.Access the email account you provided upon registration to the hospital/physician office.2.Look for an invitation email from [facility].3.Open the email and access the invitation link: Accept Invitation to [facility].4.Fill in the required araujo to create your account. To access your account, visit [email or web address]. Click the blue button labeled Access Patient Portal and then log in with the username and password that you created in the steps above. You will be able to view your test results, lab results, a summary of your visits, upcoming appointments and more. There is also a convenient messaging option where you can send secure messages to your provider. In addition, you will have the ability to download any documents or summaries to your computer and/or send the information securely to a physician. Remember that your healthcare information is confidential, so carefully consider who you will allow to register on the [facility] for access to your information. You can also access the [facility] on the [place] jess. Simply click on Patient Portal and then log into your account. If you would like to receive a full copy of your medical records, please contact the [facility] Medical Records Department by calling [phone], Friday through Friday between 8 a.m. and 4:30 p.m. HOW TO SAFELY DISPOSE OF PRESCRIPTION MEDICATIONS Please use one of the following methods to safely dispose of your unused medications. 1.Use a drug disposal kit: the drug disposal pouch allows you to safely discard your old and unused drugs. Ask your nurse to give you one when you are discharged.2.Visit a local take-back location: Many local pharmacies and police departments have programs that collect old and unwanted prescription drugs. Call your local pharmacy or go to http://[email or web address].WhoseView.ie/[email or web address] to find one close to you.3.Make use of household items: Use cat litter or old coffee grounds to dispose medications if other options are not available. Mix your drugs with these household products, seal them in an airtight container and throw it into the garbage. Call [facility]: [phone] to be sure your drugs can be disposed of in this way. Some medicines may require a different approach.4.Never flush your medications down the toilet. IF YOU HAVE BEEN PRESCRIBED AN OPIOID FOR PAIN If you have been prescribed an opioid (such as hydrocodone, oxycodone or morphine), it is critical to understand the possible side effects and risks of opioid pain medications. Even when taken as directed, opioids can have several side effects including: Tolerance, meaning you might need to take more of a medication for the same pain relief. Nausea, vomiting and/or constipation. Sleepiness, dizziness, dry mouth, confusion, depression or itching. Physical dependence, meaning you have withdrawal symptoms when a medication is stopped, can develop within a few days. KNOW YOUR RESPONSIBILITIES It is important to know exactly how much and how often to take the opioid pain medications you are prescribed. Never take opioids in higher amounts or more often than prescribed. Do not combine opioids with alcohol or other drugs that cause drowsiness, such as benzodiazepines, also known as benzos, including diazepam and alprazolam, muscle relaxants or sleep aids. Never sell or share prescription opioids. This is illegal. Store opioids in a secure place and out of reach of others (including children, family, friends and visitors). The last page of this document has been signed and retained as a CHART COPY. Signatures Patient Education Materials Tendon Repair, Care After Tendon Repair [address] [place] [address] Post-op Instruction 09/2016 (33999) Medication Leaflets oxycodone My discharge plan and instructions have been reviewed and explained to me and I,LEDY CHING understand my current condition and have read and understand these discharge instructions. I have received a written copy of the plan/instructions. If I have questions, I am aware that I should contact my doctor. Patient/Supervisor [employer] Department Signature: ____ Date/Time: Relationship to Patient: __ Witness Name/Signature: Date/Time: [facility] 08-20-2023 Note Date of Service 08/20/2023 Chief Complaint left knee pain Subjective Patient seen and evaluated this morning while resting in bed. She states that she is doing well this morning other than pain in her left knee. She was just seen by Ej Cannon PA-C and has had some bleeding from her surgical site. Patient is on room air and denies any difficulty breathing. She further denies any chest pain or abdominal pain. She has been tolerating a diet without any difficulty swallowing or nausea. She has been able to empty her bladder without any difficulty. She denies any fever, chills, or dysuria. Labs and vital signs reviewed and were stable. Physical exam was unremarkable. From hospitalist perspective, patient is medically optimized for discharge. Will defer to primary team to make the final decision on discharge. All questions answered. Objective Vitals and Measurements T: 36.5 C (Oral) TMIN: 36.3 C (Temporal Artery) TMAX: 36.6 C (Oral) HR: 54 (Monitored) RR: 18 BP: 138/65 SpO2: 96% HT: 165.1 cm WT: 68.2 kg BMI: 25.02 Intake and Output 7AM Yesterday to 7AM Today Intake and Output (Last 24 hours) Intake Administration Information 1771.78 Supplement Intake 400.00 Output Intra-Op EBL 20.00 Stool Count 1.00 Urine Count 2.00 Total Summary Total Intake 2171.78 Total Output 20.00 Fluid Balance 2151.78 Physical Exam General: No acute distress. Patient is alert, chronically ill-appearing. Skin: No rash. Skin is warm, dry and intact. HEENT: Head is normocephalic, atraumatic. Pupils are equal, round and reactive. Neck: Supple. No lymphadenopathy, thyromegaly. Lungs: Bilaterally clear but diminished without crepitation or wheeze. Unlabored. Heart: Heart is regular rhythm, S1, S2. No murmurs, gallops or rubs. Abdomen: Abdomen is soft, nontender. Bowels sounds present in all quadrants. Extremities: No clubbing, cyanosis, or edema. Peripheral pulses palpable. No calf tenderness. Surgical dressing dry and intact now with sandbag in place. Neurological: Patient is awake and alert to person, place and time. Forgetful. Following simple commands, moving all extremities. Weight Dosing Weight: 68.2 kg (08/19/23) Dosing Weight: 68.2 kg (08/19/23) Medications Medications (27) Active Scheduled: (15) acetaminophen 500 mg Tablet 1,000 mg 2 tab(s), Oral, q8hr amLODIPine 5 mg tablet 10 mg 2 tab(s), Oral, qDay atorvastatin 10 mg tablet 10 mg 1 tab(s), Oral, qHS carvedilol 3.125 mg tablet 3.125 mg 1 tab(s), Oral, BIDM DME 1, Topical, Daily docusate sodium 100 mg Capsule 100 mg 1 cap(s), Oral, BID docusate-senna (Senokot S) 50 mg-8.6 mg Tablet 2 tab(s), Oral, BID famotidine 20 mg tablet 20 mg 1 tab(s), Oral, qDay hydrochlorothiazide 25 mg tablet 50 mg 2 tab(s), Oral, Daily lisinopril 20 mg tablet 40 mg 2 tab(s), Oral, Daily magnesium hydroxide 8% Suspension 30 mL UD 30 mL, Oral, Daily multivitamin (Myadec) with minerals Therapeutic Multiple Vitamins with Minerals Tablet 1 tab(s), Oral, qDayM pantoprazole 20 mg EC tablet 40 mg 2 tab(s), Oral, qDayAC paroxetine 20 mg tablet 20 mg 1 tab(s), Oral, Daily rivaroxaban 10 mg tablet 10 mg 1 tab(s), Oral, qDay Continuous: (1) Lactated Ringers 1,000 mL 1,000 mL, Intravenous, 100 mL/hr PRN: (11) acetaminophen 325 mg Tablet 650 mg 2 tab(s), Oral, q4h diphenhydramine 25 mg tablet 25 mg 1 tab(s), Oral, q6h diphenhyDRAMINE 50 mg/mL (1 mL) INJ 25 mg 0.5 mL, IV Push, q6h ketorolac 30 mg/mL (1 mL) vial 15 mg 0.5 mL, IV Push, q6h loperamide 2 mg capsule 2 mg 1 cap(s), Oral, q4h morphine 2 mg/mL 1 mL syringe 2 mg 1 mL, IV Push, q1h ondansetron 2 mg/ 1 mL 2 mL INJ 4 mg 2 mL, IV Push, q8h oxycodone 5 mg tablet (immediate release) 5 mg 1 tab(s), Oral, q4h oxycodone 5 mg tablet (immediate release) 10 mg 2 tab(s), Oral, q4h prochlorperazine 10 mg/2 mL vial 5 mg 1 mL, IV Push, q6h sodium biphosphate-sodium phosphate 19 gm-7 gm Enema 133 mL, Rectal, qDay Lab Results 08/19 05:32 WBC: 8.3 Hgb: 11.6 L Hct: 34.0 L Platelet: 222 Neutrophil %: 89.7 H Glucose Level: 129 H Sodium Level: 140 Potassium Level: 4.1 BUN: 24 H Creatinine Lvl (s): 0.71 Imaging Results and Diagnostics XR Knee 1 or 2 Views Left Result Date: August 19, 2023 Verified By: RUI ADAMS MD CLINICAL STATEMENT: IMPRESSION: Uncomplicated appearance of left knee prosthesis. EKG No qualifying data available. Assessment/Plan 1. Osteoarthritis Chronic, s/p left total knee arthroplasty. POD #1. Management per primary team. Pain well-controlled on oral medications. Patient is toe-touch weightbearing for about 6 weeks. Per therapy, patient will need to go to a facility as she does not seem to understand the concept of TTWB. Patient had bleeding from surgical site so primary team keeping her overnight. services rep working on discharge plan. 2. Hypertension Chronic. Continue current antihypertensives. SBP goal of 140 or less. Patient seen and evaluated this morning while resting in bed. Physical exam was unremarkable. Lab results and vital signs trends reviewed and were stable. From hospitalist perspective, patient is medically optimized for discharge home today. Hospitalist service will sign-off at this time. Please feel free to re-consult service if there are any changes in condition. Thank you for including hospitalist service in the care of your patient! DVT prophylaxis with Xarelto. Code status: Full Code. Labs, diagnostic test and progress notes reviewed as noted in HPI. Plan of care discussed with patient. All questions answered. Patient verbalizes understanding and is agreeable with plan of care. This case was discussed with collaborating physician, Dr. Eleno Malloy. Anticipated Date of Discharge next 24-48 hours Time Spent 35 minutes spent reviewing past diagnostic tests, reviewing lab results, vital sign trends, medical history, reviewing medications and ordering home medications, examining patient, discussed plan of care with care team, collaborating with physician, and documenting in chart. Digitally Signed by HELENA THOMAS on 08/20/2023 02:59 PM [facility] 08-20-2023 Note Date of Service August 20, 2023 Subjective The patient was sitting in bed upon examination. Patient denies any chest pain, shortness of breath, dizziness, lightheadedness, nausea or vomiting, or calf pain. No adverse overnight events. Pain has been controlled on medications. Patient did have significant drainage from the surgical incision. She is currently in a T ROM brace avoiding any range of motion. Patient was not able to work with physical therapy as her surgery was later in the day. There is concern with discharge home secondary risk of fall and significant restrictions with toe-touch weightbearing. Case management is currently involved. I would also appreciate recommendations from physical therapy with regards to safe and appropriate discharge planning. Objective Vitals and Measurements T: 36.6 C (Oral) TMIN: 36.3 C (Temporal Artery) TMAX: 37.4 C (Temporal Artery) HR: 52 (Monitored) RR: 18 BP: 118/74 SpO2: 94% HT: 165.1 cm WT: 68.2 kg BMI: 25.02 Intake and Output 7AM Yesterday to 7AM Today Intake and Output (Last 24 hours) Intake Administration Information 1870. Supplement Intake 220.00 Output Intra-Op EBL 20.00 Urine Count 2.00 Total Summary Total Intake 2090. Total Output 20.00 Fluid Balance Physical Exam Vital signs stable, afebrile. Patient did have 1 reading overnight 92% O2 saturation. Otherwise currently on room air with no distress SCD's and EDUIN Hose in place bilaterally Patient is able to plantarflex and dorsiflex actively Sensation is intact to saphenous, sural, superficial and deep peroneal, and tibial distribution Current dressing is completely saturated with Mepilex dressing. ABDs reinforcing the area are also saturated. Dressing was removed and incision appears overall well. Sutures are in place. There is a slow ooze between 2 sutures proximally. This area was reinforced with new ABDs with compressive Han wrap. A sandbag was also placed over the knee due to the drainage. Negative signs and symptoms of DVT, negative Homans bilaterally Weight Dosing Weight: 68.2 kg (08/19/23) Dosing Weight: 68.2 kg (08/19/23) Medications Medications (26) Active Scheduled: (15) acetaminophen 500 mg Tablet 1,000 mg 2 tab(s), Oral, q8hr amLODIPine 5 mg tablet 10 mg 2 tab(s), Oral, qDay atorvastatin 10 mg tablet 10 mg 1 tab(s), Oral, qHS carvedilol 3.125 mg tablet 3.125 mg 1 tab(s), Oral, BIDM DME 1, Topical, Daily docusate sodium 100 mg Capsule 100 mg 1 cap(s), Oral, BID docusate-senna (Senokot S) 50 mg-8.6 mg Tablet 2 tab(s), Oral, BID famotidine 20 mg tablet 20 mg 1 tab(s), Oral, qDay hydrochlorothiazide 25 mg tablet 50 mg 2 tab(s), Oral, Daily lisinopril 20 mg tablet 40 mg 2 tab(s), Oral, Daily magnesium hydroxide 8% Suspension 30 mL UD 30 mL, Oral, Daily multivitamin (Myadec) with minerals Therapeutic Multiple Vitamins with Minerals Tablet 1 tab(s), Oral, qDayM pantoprazole 20 mg EC tablet 40 mg 2 tab(s), Oral, qDayAC paroxetine 20 mg tablet 20 mg 1 tab(s), Oral, Daily rivaroxaban 10 mg tablet 10 mg 1 tab(s), Oral, qDay Continuous: (1) Lactated Ringers 1,000 mL 1,000 mL, Intravenous, 100 mL/hr PRN: (10) acetaminophen 325 mg Tablet 650 mg 2 tab(s), Oral, q4h diphenhydramine 25 mg tablet 25 mg 1 tab(s), Oral, q6h diphenhyDRAMINE 50 mg/mL (1 mL) INJ 25 mg 0.5 mL, IV Push, q6h ketorolac 30 mg/mL (1 mL) vial 15 mg 0.5 mL, IV Push, q6h morphine 2 mg/mL 1 mL syringe 2 mg 1 mL, IV Push, q1h ondansetron 2 mg/ 1 mL 2 mL INJ 4 mg 2 mL, IV Push, q8h oxycodone 5 mg tablet (immediate release) 5 mg 1 tab(s), Oral, q4h oxycodone 5 mg tablet (immediate release) 10 mg 2 tab(s), Oral, q4h prochlorperazine 10 mg/2 mL vial 5 mg 1 mL, IV Push, q6h sodium biphosphate-sodium phosphate 19 gm-7 gm Enema 133 mL, Rectal, qDay Lab Results 08/19 05:32 WBC: 8.3 Hgb: 11.6 L Hct: 34.0 L Platelet: 222 Neutrophil %: 89.7 H Glucose Level: 129 H Sodium Level: 140 Potassium Level: 4.1 BUN: 24 H Creatinine Lvl (s): 0.71 EKG No qualifying data available. Assessment/Plan Acute hypoxic respiratory failure Hypertension Osteoarthritis S/P total knee replacement 1. Status post left knee open reduction internal fixation patella fracture postop day #1 2. Continue pain medications: Tylenol and oxycodone 3. DVT prophylaxis: Patient will be placed on Xarelto due to the weightbearing restrictions. She will be on Xarelto 10 mg once daily for 2 weeks postoperatively. This will be followed by aspirin 81 mg twice daily. Length of aspirin treatment will be based on patient's mobility and follow-up. Case was discussed with Dr. Mercedes Lock. 4. Physical therapy: Patient is toe-touch weightbearing on the left lower extremity for 6 weeks postoperatively. She should have the T ROM brace locked in extension while up and out of bed. There is no range of motion for the first 2 weeks postoperatively. I am okay while in bed opening up the T ROM brace so that we can use sandbag due to her drainage currently. I would appreciate recommendations from physical therapy for safe and discharge planning. I am concerned with discharge home for risk of fall. 5. H & H: 11.6/34.0, asymptomatic. Labs have been reviewed 6. Encouraged incentive spirometry 7. Postoperative drainage: Postoperative dressings were removed to assess incision. There was a slow ooze between 2 sutures. ABDs and compressive Han wrap dressing has been placed. We will use sandbag due to the drainage. Reassess tomorrow. 8. Continue postoperative medical management per medicine 9. Postoperative constipation: Discussed with the patient to continue stool softener until first bowel movement. After first bowel movement patient can then take as needed. They were also instructed that if they are not able to have a bowel movement within 3 days they are to contact our office for change of medication. Patient voiced understanding. 10. Disposition: Due to patient's significant restrictions as well as the current drainage patient will require additional night stay. Case management is currently involved for appropriate discharge planning. I would appreciate recommendations from physical therapy for discharge planning. There is concern for fall risk. Patient may require long term facility postoperatively. Patient will remain in the T ROM brace with no range of motion of the left knee. Only reason to have the T ROM brace open is for sandbag placement trying to control and decrease drainage. Plan will be eventually to place new Mepilex dressing once drainage has been appropriately contained. Patient will continue with above pain medications. I have reviewed the [place] Automated Rx Reporting System (OARRS) report for this patient for refill pattern and other prescriber involvement as part of the appropriate surveillance for the provision of acute and chronic controlled medications. The report was requested and reviewed on the date of this entry, and was considered in the prescribing process This dictation was created using voice recognition software. Phonetic and/or grammatical errors may exist. Digitally Signed by EJ CANNON PA-C on 08/20/2023 10:22 AM [facility] 08-19-2023 Note ORIGINAL EXAMINATION: TWO XRAY VIEWS OF THE LEFT KNEE08/19/2023 4:00 pm XR left knee portable AP and cross-table lateral two views COMPARISON: None HISTORY: ORDERING SYSTEM PROVIDED HISTORY: Reason for Exam: Postop left knee arthroplasty, postop evaluation FINDINGS: There is limited evaluation on the lateral view due to the presence of metallic brace around the knee. Any prosthesis is intact with satisfactory alignment. No abnormal periprosthetic lucency or fracture is seen on these images.. IMPRESSION: Uncomplicated appearance of left knee prosthesis. Interpreted by: Rui Adams MD Preliminary Report By: Rui Adams MD Electronically signed By Rui Adams MD Dictated Date: 08/19/2023 4:16:44 PM Prelim Date: 08/19/2023 4:18:08 PM Sign Date: 08/19/2023 4:18:08 PM Ordering Provider: MERCEDES LOCK [facility] 08-19-2023 Note ORIGINAL Images acquired, not reported on this accession number. [facility] 08-19-2023 Anesthesiology Consult note Patient: LEDY CHING Age: 78 years Sex: Female : 1945 Associated Diagnoses: None Author: YULI KIRKPATRICK RABBET OPERATOR-DEPUTY BAILIFF Preoperative Information Time of last food or liquid consumption: 08/19/2023 00:00:00 Anesthesia history Patient's history: negative. Family's history: negative. Review of Systems Ear/Nose/Mouth/Throat: Negative. Respiratory: murmur. Cardiovascular: Negative. Gastrointestinal: Reflux, obese. Genitourinary: Negative. Endocrine: Negative. Musculoskeletal: OA, scolosis. Integumentary: Negative. Neurologic: depression. Health Status Allergies: Allergic Reactions (Selected) NKA, Allergies (1) ActiveSeverityReaction NKANone Documented Current medications: (Selected) Inpatient Medications Ordered Decadron: 10 mg, 1 mL, IV Push, AsDirected LR 1,000 mL: 20 mL/hr, Intravenous, Stop: 08/19/23 23:59:00 EDT LR 1000 mL: 20 mL/hr, Intravenous Zofran ( PACU ): 4 mg, 2 mL, IV Push, AsDirected, PRN: Nausea/Vomiting ceFAZolin: 2 gram(s), 200 mL/hr, IV Piggyback, PREOP pharm morphine ( PACU ): 2 mg, 1 mL, IV Push, q5min, PRN: Pain, scale 4-6 Documented Medications Documented Calcium Plus Vitamin D3 600 mg-12.5 mcg (500 intl units) oral capsule: 2 cap(s), Oral, qDay, with food, 120 EA, 0 Refill(s) PARoxetine 20 mg oral tablet: 20 mg, 1 tab(s), Oral, Daily, 0 Refill(s) Vitamin C 500 mg oral tablet: 500 mg, 1 tab(s), Oral, qDay, 30 tab(s), 0 Refill(s) amLODIPine 10 mg oral tablet: 10 mg, 1 tab(s), Oral, qDay, 30 tab(s), 0 Refill(s) carvedilol 3.125 mg oral tablet: 3.125 mg, 1 tab(s), Oral, BIDM, 0 Refill(s) hydroCHLOROthiazide 50 mg oral tablet: 50 mg, 1 tab(s), Oral, Daily, 0 Refill(s) lisinopril 40 mg oral tablet: 40 mg, 1 tab(s), Oral, Daily, 0 Refill(s) meloxicam 15 mg oral tablet: 15 mg, 1 tab(s), Oral, qDay, 30 tab(s), 0 Refill(s) omeprazole 40 mg oral delayed release capsule: 40 mg, 1 cap(s), Oral, qDay, 30 cap(s), 0 Refill(s) simvastatin 20 mg oral tablet: 20 mg, 1 tab(s), Oral, qHS, 0 Refill(s) traZODone 100 mg oral tablet: 100 mg, 1 tab(s), Oral, qHS, 0 Refill(s) vitamin E 400 intl units oral capsule: 400 International_Unit, 1 cap(s), Oral, Daily, 0 Refill(s), Medications (6) Active Scheduled: (2) ceFAZolin 2 gram(s), IV Piggyback, PREOP pharm dexamethasone 10 mg/mL (1mL) SDV 10 mg 1 mL, IV Push, AsDirected Continuous: (2) Lactated Ringers 1,000 mL 1,000 mL, Intravenous, 20 mL/hr Lactated Ringers Infusion 1000 mL 1,000 mL, Intravenous, 20 mL/hr PRN: (2) morphine 2 mg/mL 1 mL syringe 2 mg 1 mL, IV Push, q5min ondansetron 2 mg/ 1 mL 2 mL INJ 4 mg 2 mL, IV Push, AsDirected Problem list: Active Problems (9) Depression Fracture of cervical vertebra GERD (gastroesophageal reflux disease) Heart murmur HTN (hypertension) OA (osteoarthritis) Scoliosis Spinal stenosis TMJ (temporomandibular joint disorder) Histories Past Medical History: No active or resolved past medical history items have been selected or recorded. Family History: No family history items have been selected or recorded. Procedure history: Open reduction of fracture of patella with internal fixation ([id number]) on 08/19/2023 at 78 Years. Comments: 08/19/2023 14:23 Enid Garcia RN AND EXTENSOR MECHANISM RECONSTRUCTION Total prosthetic arthroplasty of left knee ([id number]) on 05/15/2023 at 77 Years. Appendectomy ([id number]). Hysterectomy ([id number]). ORIF - Open reduction and internal fixation of fracture ([id number]). 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: Self Lives In 1st floor bathroom, 1st floor bedroom, Multilevel home Current Home Treatments None Special Services and Community Resources None Spouse Name Barney Marital Status of Patient if Patient Independent Adult: Nutrition/Health 08/19/2023 Type of diet: Regular Appetite Good Eating Difficulties None Skin Breakdown/Decubitus Ulcers No Physical Examination Vital Signs 08/19/2023 14:20 EDT Heart Rate Monitored 56 bpm bpm Respiratory Rate - Anes 16 br/min br/min 08/19/2023 14:15 EDT Heart Rate Monitored 56 bpm bpm Respiratory Rate - Anes 0 br/min br/min Systolic Blood Pressure Non-Invasive 87 mmHg mmHg Diastolic Blood Pressure Non-Invasive 49 mmHg mmHg 08/19/2023 14:10 EDT Heart Rate Monitored 56 bpm bpm Respiratory Rate - Anes 5 br/min br/min Systolic Blood Pressure Non-Invasive 90 mmHg mmHg Diastolic Blood Pressure Non-Invasive 53 mmHg mmHg 08/19/2023 14:05 EDT Heart Rate Monitored 68 bpm bpm Respiratory Rate - Anes 0 br/min br/min Systolic Blood Pressure Non-Invasive 137 mmHg mmHg Diastolic Blood Pressure Non-Invasive 61 mmHg mmHg 08/19/2023 14:03 EDT Systolic Blood Pressure Non-Invasive 145 mmHg mmHg Diastolic Blood Pressure Non-Invasive 63 mmHg mmHg 08/19/2023 14:00 EDT Respiratory Rate - Anes 0 br/min br/min Systolic Blood Pressure Non-Invasive 169 mmHg mmHg Diastolic Blood Pressure Non-Invasive 83 mmHg mmHg 08/19/2023 13:55 EDT Systolic Blood Pressure Non-Invasive 153 mmHg mmHg Diastolic Blood Pressure Non-Invasive 80 mmHg mmHg 08/19/2023 11:36 EDT Temperature Temporal Artery 37.4 DegC Apical Heart Rate 66 bpm Respiratory Rate 18 br/min Systolic Blood Pressure Non-Invasive 152 mmHg HI Diastolic Blood Pressure Non-Invasive 70 mmHg Vital Signs (last 24 hrs) Last Charted Temp Zgoiulbs43.4 DegC (AUG 18 11:36) Heart Rate Nhvacirep39 bpm (AUG 18 14:20) SBP87 mmHg (AUG 18 14:15) DBP49 mmHg (AUG 18 14:15) Measurements from flowsheet : Measurements 08/19/2023 11:36 EDT Height 165.1 cm Height in inches 65 inch(es) Admission Weight 68.2 kg Weight Lbs 150 lb [place] Body Weight 57.00 kg Pain assessment: Pain Assessment 08/19/2023 14:22 EDT Primary Pain Intensity Not Done: See OR Record (Not Done) Primary Pain Intensity Not Done: See OR Record (Not Done) 08/19/2023 11:52 EDT Primary Pain Intensity 0 08/19/2023 11:36 EDT Primary Pain Intensity 0 Pain Scale Type 0-10 Pain scale . General: Alert and oriented. Airway: Normal temporomandibular joint mobility. Mallampati classification: II (soft palate, fauces, uvula visible). Head: Normocephalic. Dentition Evaluation: Own teeth. Neck: Supple. Respiratory: Lungs are clear to auscultation. Cardiovascular: pvc's. Heart Sounds: Normal. Gastrointestinal: Soft. Musculoskeletal Normal range of motion. Integumentary: Intact. Review / Management Results review: No qualifying data available , Lab results 08/19/2023 14:24 EDT SN - GCD - ASA Class 3 08/19/2023 14:22 EDT Primary Pain Intensity Not Done: See OR Record (Not Done) Primary Pain Intensity Not Done: See OR Record (Not Done) epinephrine Not Done: See OR Record (Not Done) epinephrine Not Done: See OR Record (Not Done) ketorolac Not Done: See OR Record (Not Done) ketorolac Not Done: See OR Record (Not Done) morphine Not Done: See OR Record (Not Done) morphine Not Done: See OR Record (Not Done) ROPivacaine Not Done: See OR Record (Not Done) ROPivacaine Not Done: See OR Record (Not Done) 08/19/2023 14:20 EDT Heart Rate Monitored 56 bpm bpm Respiratory Rate - Anes 16 br/min br/min Oxygen Saturation 95 % % acetaminophen Begin Bag 100 mL mg 08/19/2023 14:15 EDT Heart Rate Monitored 56 bpm bpm Respiratory Rate - Anes 0 br/min br/min Systolic Blood Pressure Non-Invasive 87 mmHg mmHg Diastolic Blood Pressure Non-Invasive 49 mmHg mmHg Oxygen Saturation 72 % % 08/19/2023 14:10 EDT Heart Rate Monitored 56 bpm bpm Respiratory Rate - Anes 5 br/min br/min Systolic Blood Pressure Non-Invasive 90 mmHg mmHg Diastolic Blood Pressure Non-Invasive 53 mmHg mmHg Oxygen Saturation 94 % % 08/19/2023 14:05 EDT Heart Rate Monitored 68 bpm bpm Respiratory Rate - Anes 0 br/min br/min Systolic Blood Pressure Non-Invasive 137 mmHg mmHg Diastolic Blood Pressure Non-Invasive 61 mmHg mmHg Oxygen Saturation 89 % % 08/19/2023 14:04 EDT bupivacaine 1.6 mL mL 08/19/2023 14:03 EDT Systolic Blood Pressure Non-Invasive 145 mmHg mmHg Diastolic Blood Pressure Non-Invasive 63 mmHg mmHg 08/19/2023 14:00 EDT Respiratory Rate - Anes 0 br/min br/min Systolic Blood Pressure Non-Invasive 169 mmHg mmHg Diastolic Blood Pressure Non-Invasive 83 mmHg mmHg 08/19/2023 13:58 EDT SN - PP - Body Position Supine Standard Intra-op 08/19/2023 13:55 EDT Systolic Blood Pressure Non-Invasive 153 mmHg mmHg Diastolic Blood Pressure Non-Invasive 80 mmHg mmHg 08/19/2023 13:54 EDT SN - CTm - Anesthesia Start Time Anesthesia Start 08/19/2023 13:45 EDT SN - XI - X-Ray Type C-Arm 08/19/2023 13:44 EDT SN - Irl - Irrigant Normal Saline 08/19/2023 13:44 EDT SN - SP - Prep Agents Chloraprep SN - SP - HR - Method Clipped 08/19/2023 13:44 EDT SN - PTCare - Anti-thromboembolism Monet Sequential Compression Device (SCD) 08/19/2023 13:43 EDT SN - KS - Route of Administration Local SN - KS - By (Single) SN - KS - By (Single) 08/19/2023 13:39 EDT SN - Proc - Anesthesia Type Spinal, Regional, MAC, Local SN - Proc - Actual Procedure OPEN REDUCTION INTERNAL FIXATION LEFT PATELLA AND EXTENSOR MECHANISM RECONSTRUCTION 08/19/2023 13:38 EDT SN - Assess - LOC Alert, Awake SN - Assess - Orientation Oriented X 3 SN - Assess - Post-op Skin Integrity Intact/Dry 08/19/2023 13:38 EDT SN - GCD - Post-operative Diagnosis PERIPROSTHETIC FRACTURE AROUND INTERNAL PROSTHETIC LEFT KNEE JOINT, INITIAL ENCOUNTER; STRAIN OF OTHER MUSCLE AND TENDON AT LOWER LEG LEVE, LEFT LEG, INITIAL ENCOUNTER; PRESENCE OF LEFT ARTIFICIAL KNEE JOINT SN - GCD - Case Level Level 3 08/19/2023 13:38 EDT SN - Cul - Culture Type No Specimen per Surgeon 08/19/2023 13:38 EDT SN - CAt - Case Attendee SN - CAt - Case Attendee SN - CAt - Case Attendee SN - CAt - Case Attendee SN - CAt - Case Attendee SN - CAt - Case Attendee SN - CAt - Case Attendee SN - CAt - Case Attendee SN - CAt - Case Attendee SN - CAt - Case Attendee SN - CAt - Case Attendee SN - CAt - Case Attendee SN - CAt - Role Performed Primary Surgeon SN - CAt - Role Performed DEPUTY BAILIFF SN - CAt - Role Performed Bend Up 1 SN - CAt - Role Performed Scrub 1 SN - CAt - Role Performed Safety Council Director 1 SN - CAt - Role Performed Farebox Repairer 08/19/2023 13:16 EDT Time Out Procedure Verified Time Out Procedure Site Verified Yes Time Out Procedure Site Marked Yes Time Out Correct Patient Position Yes Consent Form Signed Yes Bedside Procedure Nerve Block Provider #1 Bedside Time Out YULI KIRKPATRICK APRN-DEPUTY BAILIFF Provider #2 Bedside Time Out Rachel Patel RN NPO Status Maintained Allergy Band on and Verified No Blood Band on and Verified No Patient ID Band on and Verified Yes Anesthesia Consent Signed Yes Blood Consent Signed Yes 08/19/2023 12:04 EDT SN - Preop - CTm Pt Ready for OR/Proced 08/19/2023 12:04 08/19/2023 12:04 EDT citric acid-sodium citrate Not Given: Other (Not Done) 08/19/2023 12:03 EDT Preop Nasal Swab Povidone-Iodine CHG Skin Prep Completed for Eligible Surgery 08/19/2023 11:57 EDT Lactated Ringers Injection 1,000 mL mL 08/19/2023 11:54 EDT famotidine 20 mg mg 08/19/2023 11:52 EDT Primary Pain Intensity 0 celecoxib 400 mg mg oxyCODONE 10 mg mg 08/19/2023 11:51 EDT Continuous IV Infusions LR Forearm Right 08/19/2023 20 gauge Peripheral IV Activity: Insert new site Peripheral IV Dressing Condition: Clean, Dry, Intact Peripheral IV Dressing Activity: Applied, Transparent dressing Peripheral IV Line Status/Patency: Continuous infusion Peripheral IV Line Care: Secured with tape Peripheral IV Site Condition: No complications Peripheral IV Equipment: Extension set, PRN Adaptor Peripheral IV Number of Attempts: 1 08/19/2023 11:49 EDT SN - Preop - CTm Pt in SDS Room 08/19/2023 11:27 08/19/2023 11:36 EDT Height 165.1 cm Height in inches 65 inch(es) Admission Weight 68.2 kg Weight Lbs 150 lb [place] Body Weight 57.00 kg Temperature Temporal Artery 37.4 DegC Apical Heart Rate 66 bpm Respiratory Rate 18 br/min Systolic Blood Pressure Non-Invasive 152 mmHg HI Diastolic Blood Pressure Non-Invasive 70 mmHg Primary Pain Intensity 0 Pain Scale Type 0-10 Pain scale Heart Rhythm Irregular Dorsalis Pedis Pulse, Left 1+ Thready Dorsalis Pedis Pulse, Right 1+ Thready Respirations Unlabored Respiratory Pattern Regular Breath Sounds Auscultated Anterior only All Lobes Breath Sounds Clear, Equal Oxygen Therapy Room air Oxygen Saturation 92 % LOW Abdomen Description Non-distended, Soft Abdomen Palpation Non-Tender Bowel Sounds All Quadrants Hyperactive Skin Symptoms Bruising Skin Temperature Warm Skin Description [place], Normal for ethnicity, Dry Skin Integrity Intact Skin Moisture General Dry Neurological Symptoms Patient denies Characteristics of Speech Clear Level of Consciousness Alert Left Upper Extremity Sensation Numbness Affect/Behavior Appropriate, Calm, Cooperative Orientation Oriented x 4 Melany Motor (2) Moves 4 extremities voluntarily or on command Melany Respirations (2) Spontaneous respiration without support, RR > 10 Melany Blood Pressure (2) BP 20% above or below preanesthetic level Melany Pulse (2) Pulse 20% above or below preanesthetic level Melany Oxygen Saturation (2) 94% or more Melany Level of Consciousness (2) Fully awake Melany III Score 12 Orientation Assessment Oriented x 4 Positioning Repositions self Activity Status ADL Awake, Resting Antiembolism Stocking On/Re-applied right thigh high Antiembolism Stocking Off/Removed right knee high Standard Safety ID band on, Call device within reach, Bed in low position, Wheels locked, Non-Slip footwear 08/19/2023 11:27 EDT IV Present Present Allergies No Consent Form Signed Yes Patient Dressed In Hospital gown CHG Preoperative Wash/Wipe Night before procedure, Day of procedure History & Physical Update On Chart Yes History & Physical On Chart Yes Obstructive Sleep Apnea Assess Completed Yes NPO Status Maintained Allergy Band on and Verified No Patient ID Band on and Verified Yes Implants Verified Yes Pacemaker/AICD Verified Yes Site Verified by Patient/Family Yes Anesthesia Consent Signed Yes Blood Consent Signed Yes Last Fluid Intake 08/18/2023 18:00 Last Food Intake 08/18/2023 18:30 Last Void 08/19/2023 11:28 08/19/2023 9:05 EDT SADIErejihipolitogabriella SADIESEE (Modified) . Assessment and Plan [place] [employer] (ASA) physical status classification: Class III. Anesthetic Preoperative Plan Premedication: intravenous. Anesthetic technique: Spinal. Induction: intravenously. Maintenance airway: 40% FM. Regional: Adductor Canal Block. Postoperative pain management: Per surgeon. Informed consent: signed by patient. Digitally Signed by YULI KIRKPATRICK on 08/19/2023 02:28 PM [facility] 06-24-2023 Evaluation + Plan note Associated Problem(s): Current moderate episode of major depressive disorder (Multi) Depression is stable with the Paxil 20 mg daily. She says she does not feel any better or worse and would like to stay on her current dose [facility] Work Phone: 06-24-2023 Evaluation + Plan note Associated Problem(s): Wellness examination Annual wellness visit was completed. Safety issues were reviewed with the patient. Patient was given information about how to complete a living will and power of mergers and acquisitions attorney as she currently does not have them CODE STATUS was discussed and patient would like to be a full code Patient was not willing to name a power of mergers and acquisitions attorney or healthcare advocate at this time but will consider getting a power of mergers and acquisitions attorney and living well Safety issues have already been met in the home including grab bars and rails on stairs. Patient is due for mammogram at this time and she will get that scheduled [facility] Work Phone: 06-24-2023 Miscellaneous Notes Associated Problem(s): Current moderate episode of major depressive disorder (Multi) Depression is stable with the Paxil 20 mg daily. She says she does not feel any better or worse and would like to stay on her current dose Associated Problem(s): Wellness examination Annual wellness visit was completed. Safety issues were reviewed with the patient. Patient was given information about how to complete a living will and power of mergers and acquisitions attorney as she currently does not have them CODE STATUS was discussed and patient would like to be a full code Patient was not willing to name a power of mergers and acquisitions attorney or healthcare advocate at this time but will consider getting a power of mergers and acquisitions attorney and living well Safety issues have already been met in the home including grab bars and rails on stairs. Patient is due for mammogram at this time and she will get that scheduled Associated Problem(s): Screening for multiple conditions Alcohol screen was negative. Patient does have active depression but is well-controlled and she is stable. Associated Problem(s): GERD (gastroesophageal reflux disease) Patient states she does well from a reflux standpoint and remains on omeprazole 40 mg daily Associated Problem(s): Hypertension Initial blood pressure was elevated but rechecked look good. She admits she was nervous when she entered today but calm down after she had been here and spoken to me. Blood pressure is stable so no changes will be made. Associated Problem(s): Hypercholesterolemia Cholesterol levels look good with an appropriate LDL on the simvastatin 20 mg daily. Associated Problem(s): Cardiac risk counseling Patient has an ASCVD risk of 33.3%. Cardiovascular risk discussed and, if needed, lifestyle modifications recommended, including nutritional choices, exercise, and elimination of habits contributing to risk. We agreed on a plan to reduce the current cardiovascular risk. Aspirin use/disuse was discussed after reviewing updated guidelines At the end of the discussion patient and I both agreed that she would start taking enteric-coated baby aspirin 81 mg daily Associated Problem(s): Full code status CODE STATUS was discussed with the patient today and they wish to be a full code. Patient understands that this may include CPR, cardioversion, intubation and ventilation if necessary. Patient currently does not have a power of mergers and acquisitions attorney or living will. She suspects she would name her first but has not actually done so. She was given information on how to get a living will and power of mergers and acquisitions attorney including reaching out to an mergers and acquisitions attorney, or going to the [email or web address] website. She was given instructions on how to print off a copy of the living will and to review it and that she would need a notary and to witnesses to make it official. Patient states understanding will look into it documented in this encounter [facility] Work Phone: 06-24-2023 Evaluation + Plan note Associated Problem(s): Screening for multiple conditions Alcohol screen was negative. Patient does have active depression but is well-controlled and she is stable. [facility] Work Phone: 06-24-2023 Evaluation + Plan note Associated Problem(s): GERD (gastroesophageal reflux disease) Patient states she does well from a reflux standpoint and remains on omeprazole 40 mg daily [facility] Work Phone: 06-24-2023 Evaluation + Plan note Associated Problem(s): Hypertension Initial blood pressure was elevated but rechecked look good. She admits she was nervous when she entered today but calm down after she had been here and spoken to me. Blood pressure is stable so no changes will be made. [facility] Work Phone: 06-24-2023 Evaluation + Plan note Associated Problem(s): Hypercholesterolemia Cholesterol levels look good with an appropriate LDL on the simvastatin 20 mg daily. [facility] Work Phone: 06-24-2023 Evaluation + Plan note Associated Problem(s): Cardiac risk counseling Patient has an ASCVD risk of 33.3%. Cardiovascular risk discussed and, if needed, lifestyle modifications recommended, including nutritional choices, exercise, and elimination of habits contributing to risk. We agreed on a plan to reduce the current cardiovascular risk. Aspirin use/disuse was discussed after reviewing updated guidelines At the end of the discussion patient and I both agreed that she would start taking enteric-coated baby aspirin 81 mg daily [facility] Work Phone: 06-24-2023 Evaluation + Plan note Associated Problem(s): Full code status CODE STATUS was discussed with the patient today and they wish to be a full code. Patient understands that this may include CPR, cardioversion, intubation and ventilation if necessary. Patient currently does not have a power of mergers and acquisitions attorney or living will. She suspects she would name her first but has not actually done so. She was given information on how to get a living will and power of mergers and acquisitions attorney including reaching out to an mergers and acquisitions attorney, or going to the [email or web address] website. She was given instructions on how to print off a copy of the living will and to review it and that she would need a notary and to witnesses to make it official. Patient states understanding will look into it [facility] Work Phone: 06-24-2023 History of Present illness Narrative Subjective Reason for Visit: Ledy Ching is an 77 y.o. female here for a Medicare Wellness visit. Past Medical, Surgical, and Family History reviewed and updated in chart. Reviewed all medications by prescribing practitioner or clinical pharmacist (such as prescriptions, OTCs, herbal therapies and supplements) and documented in the medical record. Patient is here today for annual wellness visit as well as management of her problems including depression hypertension cholesterol and reflux symptoms. Patient just completed blood work this week and it was reviewed with her in detail in the office today. Her vitamin D level is slightly high at 84 so she was asked to decrease her supplement to every other day. She is not sure of the dosage she is on but will cut it down to every other day and we will repeat her vitamin D in a year Patient mentions that she had an episode of left lower quadrant abdominal pain and thought it might have been diverticulitis. Became see the pain seem to wax and wane for about 3 weeks but has subsided and is no longer present. She did not have any change in bowel movements blood in the stool or fevers during this episode. I have told the patient that if it happens again she should come see me immediately if she has abdominal pain or cramping for more than 24 hours. I would do a CT scan on her and properly evaluate her and maybe even treat her depending on the findings patient states understanding and will call back if she has another recurrence Coronary risk screening was performed with the patient today since it was high as an ASCVD risk of 33.3%. Cholesterol is good blood pressure is controlled but we did decide taking a baby aspirin 81 mg enteric-coated daily. Patient Care Team: Saima Mendoza MD as PCP - General Saima Mendoza MD as PCP - [employer] Medicare Advantage [...] dizziness, syncope, weakness, light-headedness and headaches. Objective Vitals: BP 128/62 Pulse 52 Ht 1.651 m (5' 5) Wt 70.9 kg (156 lb 3.2 oz) SpO2 93% BMI 25.99 kg/m Physical Exam Constitutional: Appearance: Normal appearance. [...] Problem List Items Addressed This Visit Hypertension Current Assessment & Plan Initial blood pressure was elevated but rechecked look good. She admits she was nervous when she entered today but calm down after she had been here and spoken to me. Blood pressure is stable so no changes will be made. Relevant Medications amLODIPine (Norvasc) 10 mg tablet Hyperlipidemia Hypercholesterolemia Current Assessment & Plan Cholesterol levels look good with an appropriate LDL on the simvastatin 20 mg daily. Generalized osteoarthritis of multiple sites Current moderate episode of major depressive disorder (Multi) Current Assessment & Plan Depression is stable with the Paxil 20 mg daily. She says she does not feel any better or worse and would like to stay on her current dose GERD (gastroesophageal reflux disease) Current Assessment & Plan Patient states she does well from a reflux standpoint and remains on omeprazole 40 mg daily Vitamin D deficiency Wellness examination Current Assessment & Plan Annual wellness visit was completed. Safety issues were reviewed with the patient. Patient was given information about how to complete a living will and power of mergers and acquisitions attorney as she currently does not have them CODE STATUS was discussed and patient would like to be a full code Patient was not willing to name a power of mergers and acquisitions attorney or healthcare advocate at this time but will consider getting a power of mergers and acquisitions attorney and living well Safety issues have already been met in the home including grab bars and rails on stairs. Patient is due for mammogram at this time and she will get that scheduled Full code status Current Assessment & Plan CODE STATUS was discussed with the patient today and they wish to be a full code. Patient understands that this may include CPR, cardioversion, intubation and ventilation if necessary. Patient currently does not have a power of mergers and acquisitions attorney or living will. She suspects she would name her first but has not actually done so. She was given information on how to get a living will and power of mergers and acquisitions attorney including reaching out to an mergers and acquisitions attorney, or going to the [email or web address] website. She was given instructions on how to print off a copy of the living will and to review it and that she would need a notary and to witnesses to make it official. Patient states understanding will look into it Screening for multiple conditions Current Assessment & Plan Alcohol screen was negative. Patient does have active depression but is well-controlled and she is stable. Cardiac risk counseling Current Assessment & Plan Patient has an ASCVD risk of 33.3%. Cardiovascular risk discussed and, if needed, lifestyle modifications recommended, including nutritional choices, exercise, and elimination of habits contributing to risk. We agreed on a plan to reduce the current cardiovascular risk. Aspirin use/disuse was discussed after reviewing updated guidelines At the end of the discussion patient and I both agreed that she would start taking enteric-coated baby aspirin 81 mg daily Other Visit Diagnoses Routine general medical examination at health care facility - Primary Screening mammogram for breast cancer Relevant Orders BI mammo bilateral screening tomosynthesis Patient will follow-up with me in 4 months or as needed If she has recurrence of the left lower quadrant pain the patient is to call me and make an appointment for evaluation. documented in this encounter [facility] Work Phone: 06-24-2023 Instructions Saima Mendoza MD - 06/24/2023 11:00 AM EDT Advanced directives were discussed at your appointment today. It is recommended that you obtain and complete a living will and D POA (DURABLE POWER OF BRIDGE WORKER APPRENTICE for healthcare). You can complete these documents with an mergers and acquisitions attorney if you have 1 or go to the website: [email or web address]. Please search the word living will and will take you directly to the form. Once you have completed these documents you can bring a copy to our office so we can add it to your medical record. Follow up Dr Mendoza in 4 months for HTN etc Please take aspirin 81mg daily, make sure it is enteric coated Call for appointment if abdominal pain returns documented in this encounter [facility] Work Phone: 04-28-2023 Evaluation + Plan note Associated Problem(s): Primary osteoarthritis of left knee Patient has significant arthritis and degenerative joint of her left knee. She will be having a left total knee replacement on May 14. Assuming her blood work is normal she is cleared for surgery. [facility] Work Phone: 04-28-2023 Miscellaneous Notes Associated Problem(s): [...] total knee replacement on May 14 at [facility] by Dr. Lock. At this time patient is in generally [...] take these medications documented in this encounter [facility] Work Phone: 04-28-2023 Evaluation + Plan note Associated Problem(s): Preop examination Patient is scheduled to have an robot-assisted left total knee replacement on May 14 at [facility] by Dr. Lock. At this time patient is in generally [...] be careful not to take these medications [facility] Work Phone: 04-28-2023 History of Present illness Narrative Subjective Patient ID: Ledy Ching is a 77 y.o. female who presents for pre op clearance. BN Patient is here today for preop clearance. She will be having a robot assisted total knee replacement by Dr. Lock on May 14 of her left knee. [...] Medication Documentation Review Audit Reviewed by Saima Mendoza MD (Physician) on 04/28/23 at 1149 Medication Order Taking? Sig Documenting Provider Last Dose Status amLODIPine (Norvasc) 10 mg tablet [id number] No Take 1 tablet (10 mg) by mouth once daily. Saima Mendoza MD Taking Active ascorbic acid, vitamin C, 500 mg capsule [id number] No Take by mouth. Historical Provider, Taking Active calcium carbonate 600 mg calcium (1,500 mg) tablet [id number] No Take 1 tablet (600 mg) by mouth. Historical Provider, Taking Active carvedilol (Coreg) 3.125 mg tablet [id number] No TAKE 1 TABLET TWICE A DAY Saiam Mendoza MD Taking Active cholecalciferol (Vitamin D-3) 50 mcg (2,000 unit) capsule [id number] No Take 1 capsule (50 mcg) by mouth. Historical Provider, Taking Active hydroCHLOROthiazide (HYDRODiuril) 50 mg tablet [id number] No Take 1 tablet (50 mg) by mouth once daily. Saima Mendoza MD Taking Active lisinopril 40 mg tablet [id number] No Take 1 tablet (40 mg) by mouth once daily. Saima Mendoza MD Taking Active meloxicam (Mobic) 15 mg tablet [id number] No Take 1 tablet (15 mg) by mouth once daily. Saima Mendoza MD Taking Active omeprazole (PriLOSEC) [address] capsule [id number] No Take 1 capsule (40 mg) by mouth once daily. Saima Mendoza MD Taking Active PARoxetine (Paxil) 20 mg tablet [id number] No Take 1 tablet (20 mg) by mouth once daily. Saima Mendoza MD Taking Active simvastatin (Zocor) 20 mg tablet [id number] No Take 1 tablet (20 mg) by mouth once daily. Saima Mendoza MD Taking Active traZODone (Desyrel) 100 mg tablet [id number] No Take 1 tablet (100 mg) by mouth once daily at bedtime. Saima Mendoza MD Taking Active zoster vaccine-recombinant adjuvanted (Shingrix) 50 mcg/0.5 mL vaccine [id number] No Inject into the shoulder, thigh, or [...] Sitting) Pulse 50 Ht 1.651 m (5' 5) Wt 72.6 kg (160 lb) SpO2 95% BMI 26.63 kg/m Assessment/Plan Problem List Items Addressed This Visit Hypertension Hyperlipidemia Hypercholesterolemia Preop examination - Primary Patient is scheduled to have an robot-assisted left total knee replacement on May 14 at [facility] by Dr. Lock. At this time patient is in generally [...] has been a pleasure seeing you. Saima Mendoza MD documented in this encounter [facility] Work Phone: 04-28-2023 Instructions Saima Mendoza MD - 04/28/2023 11:30 AM EST Stop all multi vit and Vit E and Mobic 1 week before surgery. Do not take any NSAIDs like advil, motrin, aspirin, aleve or Ibuprfen for 1 week before surgery. You may take tylenol. Get fasting labs at before your 06/24/23 appointment Get labs at [facility] for surg. documented in this encounter [facility] Work Phone: 02-28-2023 Evaluation + Plan note [...] become dependent on it. Patient states understanding [facility] Work Phone: 02-28-2023 Miscellaneous Notes Associated Problem(s): [...] appointment in May documented in this encounter [facility] Work Phone: 02-28-2023 Evaluation + Plan note Associated Problem(s): Current moderate episode of major depressive disorder (CMS/HCC) Patient's depression is stable on paroxetine or Paxil 20 mg daily. She denies any side effects [facility] Work Phone: 02-28-2023 Evaluation + Plan note Associated Problem(s): Hypertension Blood pressure is stable and well-controlled. [facility] Work Phone: 02-28-2023 Evaluation + Plan note Associated Problem(s): Hyperlipidemia Patient will remain on simvastatin 20 mg daily now and she will check lipid profile prior to her appointment in May [facility] Work Phone: 02-28-2023 History of Present illness Narrative Subjective Patient ID: Ledy Ching [...] Medication Documentation Review Audit Reviewed by Saima Mendoza MD (Physician) on 02/28/23 at 1127 Medication Order Taking? Sig Documenting Provider Last Dose Status amLODIPine (Norvasc) 10 mg tablet [id number] Yes Take 1 tablet (10 mg) by mouth once daily. Saima Mendoza MD Taking Active ascorbic acid, vitamin C, 500 mg capsule [id number] Yes Take by mouth. Historical ProviderMD Taking Active calcium carbonate 600 mg calcium (1,500 mg) tablet [id number] Yes Take 1 tablet (600 mg) by mouth. Historical ProviderMD Taking Active carvedilol (Coreg) 3.125 mg tablet [id number] Yes TAKE 1 TABLET TWICE A DAY Saima Mendoza MD Taking Active cholecalciferol (Vitamin D-3) 50 mcg (2,000 unit) capsule [id number] Yes Take 1 capsule (50 mcg) by mouth. Historical ProviderMD Taking Active hydroCHLOROthiazide (HYDRODiuril) 50 mg tablet [id number] Yes Take 1 tablet (50 mg) by mouth once daily. Saima Mendoza MD Taking Active lisinopril 40 mg tablet [id number] Yes Take 1 tablet (40 mg) by mouth once daily. Saima Mendoza MD Taking Active meloxicam (Mobic) 15 mg tablet [id number] Yes Take 1 tablet (15 mg) by mouth once daily. Saima Mendoza MD Taking Active omeprazole (PriLOSEC) [address] capsule [id number] Yes Take 1 capsule (40 mg) by mouth once daily. Saima Mendoza MD Taking Active PARoxetine (Paxil) 20 mg tablet [id number] Yes Take 1 tablet (20 mg) by mouth once daily. Saima Mendoza MD Taking Active simvastatin (Zocor) 20 mg tablet [id number] Yes Take 1 tablet (20 mg) by mouth once daily. Saima Mendoza MD Taking Active traZODone (Desyrel) 100 mg tablet [id number] Yes Take 1 tablet (100 mg) by mouth once daily at bedtime. Saima Mendoza MD Taking Active zoster vaccine-recombinant adjuvanted (Shingrix) 50 mcg/0.5 mL vaccine [id number] Yes Inject into the shoulder, thigh, or [...] Pulse (!) 49 Ht 1.651 m (5' 5) Wt 72.4 kg (159 lb 9.6 oz) [...] It has been a pleasure seeing you. KALE Valverdeatient was identified as a fall risk. Risk prevention instructions provided. documented in this encounter [facility] Work Phone: 02-28-2023 Instructions Saima Mendoza MD - 02/28/2023 11:15 AM EST Follow up Dr Mendoza in May with 45 min wellness exam Get fasting labs before Nelia appointment Ways to Help Prevent Falls at [...] your healthcare team if you have questions [facility]2021 documented in this encounter [facility] Work Phone: 10-24-2022 Evaluation + Plan note Associated Problem(s): Insomnia Patient is on trazodone 100 at bedtime and it is working well so she was given a refill. [facility] Work Phone: 10-24-2022 Evaluation + Plan note Associated Problem(s): Current moderate episode of major depressive disorder (CMS/HCC) Depression is stable, patient takes paroxetine or Paxil 20 mg daily and trazodone 100 mg at bedtime for sleep. [facility] Work Phone: 10-24-2022 Miscellaneous Notes Associated Problem(s): [...] 20 mg daily documented in this encounter [facility] Work Phone: 10-24-2022 Evaluation + Plan note Associated Problem(s): GERD (gastroesophageal reflux disease) Gastroesophageal reflux disease is stable. Patient is on Prilosec or omeprazole 40 mg daily to prevent breakthrough symptoms [facility] Work Phone: 10-24-2022 Evaluation + Plan note Associated Problem(s): Hypertension Blood pressure stable and well-controlled. [facility] Work Phone: 10-24-2022 Evaluation + Plan note Associated Problem(s): Hyperlipidemia Annual labs were completed in April and May. Patient will remain on simvastatin 20 mg daily [facility] Work Phone: 10-24-2022 History of Present illness Narrative Subjective Patient ID: Ledy Ching [...] Medication Documentation Review Audit Reviewed by Saima Mendoza MD (Physician) on 10/24/22 at 1121 Medication Order Taking? Sig Documenting Provider Last Dose Status amLODIPine (Norvasc) 10 mg tablet [id number] Take 1 tablet (10 mg) by mouth once daily. Saima Mendoza MD Active ascorbic acid, vitamin C, 500 mg capsule [id number] Take by mouth. Diamante ProviderMD Active calcium carbonate 600 mg calcium (1,500 mg) tablet [id number] Take 1 tablet (600 mg) by mouth. Historical ProviderMD Active carvedilol (Coreg) 3.125 mg tablet [id number] 1 tablet (3.125 mg). Historical ProviderMD Active cholecalciferol (Vitamin D-3) 50 mcg (2,000 unit) capsule [id number] Take 1 capsule (50 mcg) by mouth. Historical ProviderMD Active hydroCHLOROthiazide (HYDRODiuril) 50 mg tablet [id number] Take 1 tablet (50 mg) by mouth once daily. Diamante ProviderMD Active lisinopril 40 mg tablet [id number] Take 1 tablet (40 mg) by mouth once daily. Saima Mendoza MD Active meloxicam (Mobic) 15 mg tablet [id number] Take 1 tablet (15 mg) by mouth once daily. Diamante ProviderMD Active omeprazole (PriLOSEC) [address] capsule [id number] Take 1 capsule (40 mg) by mouth once daily. Saima Mendoza MD Active PARoxetine (Paxil) 20 mg tablet [id number] Take 1 tablet (20 mg) by mouth once daily. Saima Mendoza MD Active simvastatin (Zocor) 20 mg tablet [id number] Take 1 tablet (20 mg) by mouth once daily. Diamante ProviderMD Active traZODone (Desyrel) 100 mg tablet [id number] Take 1 tablet (100 mg) by mouth once daily at bedtime. Saima Mendoza MD Active zoster vaccine-recombinant adjuvanted (Shingrix) 50 mcg/0.5 mL vaccine [id number] Inject into the shoulder, thigh, or buttocks. [...] 124/70 Pulse 51 Ht 1.664 m (5' 5.5) Comment: with shoes Wt 73.4 kg (161 [...] pleasure seeing you. documented in this encounter [facility] Work Phone: 10-24-2022 Instructions Saima Mendoza MD - 10/24/2022 11:00 AM EDT Get dxa after 11/07/[address] Mendoza in 4 months for HTN etc documented in this encounter [facility] Work Phone: 08-23-2022 Miscellaneous Notes No Show Documentation Ledy Ching no showed for an appointment on 08/05/22 with Stevie Mccarty MD, PhD at 11:00 am. She [...] Is this the Third or Fourth No Show? No Summer Mcclain Ma August 23, 2022 10:55 AM documented in this encounter [facility] 06-24-2022 History of Present illness Narrative Episode Visit Count: 1 Therapist That Will Accept/Oversee The Plan Of Care: Elijah Nguyen Start of Care Date: 06/24/22 Onset [...] hip strength for ease of stair negotiation [place] in home exercise program. Patient Goals: Strengthen and improve balance Planned Interventions, Frequency, and Duration: Current Frequency: (1x/week for 2 weeks then 2x/week for 2 weeks) Duration: 4 weeks Total Number of Visits Planned: 6 Planned Treatment Interventions: Therapeutic exercise (89128), Neuromuscular re-education (43936), Manual therapy (98378), Self-long-term management (55941), Gait Training (22811), Patient/Family/Caregiver Education PLAN FOR NEXT VISIT: Balance [...] 8 Total Treatment Time Minutes (timed/untimed): 45 Elijah Nguyen PT documented in this encounter [facility] 06-20-2022 Evaluation + Plan note Associated Problem(s): Screening for multiple conditions Depression screen is positive but she has active depression and it is being treated and she feels she is stable. [facility] Work Phone: 06-20-2022 Evaluation + Plan note Associated Problem(s): Alcohol screening Patient does not drink alcohol and screening was negative. [facility] Work Phone: 06-20-2022 Evaluation + [...] is also working on her power of mergers and acquisitions attorney and living well but they have not been completed yet. When they are completed she was instructed to bring us a copy [facility] Work Phone: 06-20-2022 Miscellaneous Notes Associated Problem(s): [...] is also working on her power of mergers and acquisitions attorney and living well but they have not been completed yet. When they are completed she was instructed to bring us a copy Associated Problem(s): Wellness examination Wellness visit was completed today including review of safety issues. Patient does not have a living will or power of mergers and acquisitions attorney but is talking to her about [...] on her amlodipine documented in this encounter [facility] Work Phone: 06-20-2022 Evaluation + Plan note Associated Problem(s): Wellness examination Wellness visit was completed today including review of safety issues. Patient does not have a living will or power of mergers and acquisitions attorney but is talking to her about completing these documents. CODE STATUS was reviewed and she does want to be a full code. [facility] Work Phone: 06-20-2022 Evaluation + Plan note Associated Problem(s): Current moderate episode of major depressive disorder (CMS/HCC) Patient feels she is stable with her depression on the paroxetine. 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 [facility] Work Phone: 06-20-2022 Evaluation + Plan note Associated Problem(s): Hyperlipidemia Patient has high cholesterol and is taking simvastatin 20 mg daily liver enzymes remain normal and cholesterol is at goal as she just completed annual blood work [facility] Work Phone: 06-20-2022 Evaluation + Plan note Associated Problem(s): GERD (gastroesophageal reflux disease) GERD is stable and she was given a refill on omeprazole 40 mg daily. [facility] Work Phone: 06-20-2022 Evaluation + Plan note Associated Problem(s): Hypertension Blood pressure is stable and she was given a refill on her amlodipine [facility] Work Phone: 06-20-2022 History of Present illness Narrative Subjective Reason for Visit: Ledy [...] on this dose Patient Care Team: Saima Mendoza MD as PCP - General Saima Mendoza MD as PCP - [employer] Advantage [...] Medication Documentation Review Audit Reviewed by Saima Mendoza MD (Physician) on 06/20/22 at 1142 Medication Order Taking? Sig Documenting Provider Last Dose Status amLODIPine (Norvasc) 10 mg tablet [id number] Take 1 tablet (10 mg) by mouth once daily. Historical ProviderMD Active ascorbic acid, vitamin C, 500 mg capsule [id number] Take by mouth. Historical ProviderMD Active calcium carbonate 600 mg calcium (1,500 mg) tablet [id number] Take 1 tablet (600 mg) by mouth. Historical ProviderMD Active carvedilol (Coreg) 3.125 mg tablet [id number] 1 tablet (3.125 mg). Historical ProviderMD Active cholecalciferol (Vitamin D-3) 50 mcg (2,000 unit) capsule [id number] Take 1 capsule (50 mcg) by mouth. Historical ProviderMD Active hydroCHLOROthiazide (HYDRODiuril) 50 mg tablet [id number] Yes Take 1 tablet (50 mg) by mouth once daily. Historical ProviderMD Active lisinopril 40 mg tablet [id number] Take 1 tablet (40 mg) by mouth once daily. Historical ProviderMD Active meloxicam (Mobic) 15 mg tablet [id number] Take 1 tablet (15 mg) by mouth once daily. Historical ProviderMD Active omeprazole (PriLOSEC) [address] capsule [id number] Take 1 capsule (40 mg) by mouth once daily. Historical ProviderMD Active PARoxetine (Paxil) 20 mg tablet [id number] Take 1 tablet (20 mg) by mouth once daily. Historical ProviderMD Active simvastatin (Zocor) 20 mg tablet [id number] Take 1 tablet (20 mg) by mouth once daily. Historical ProviderMD Active traZODone (Desyrel) 100 mg tablet [id number] Yes Take 1 tablet (100 mg) by mouth once daily at bedtime. Historical Provider, Active zoster vaccine-recombinant adjuvanted (Shingrix) 50 mcg/0.5 mL vaccine [id number] Inject into the shoulder, thigh, or buttocks. Historical Provider, Active Objective Vitals: BP 128/76 Pulse 57 Ht 1.664 m (5' 5.5) Wt 73.5 kg (162 lb) SpO2 96% [...] have a living will or power of mergers and acquisitions attorney but is talking to her about [...] is also working on her power of mergers and acquisitions attorney and living well but they have [...] in 4 months documented in this encounter [facility] Work Phone: 06-20-2022 Instructions Saima Mendoza MD - 06/20/2022 11:00 AM EDT Follow up Dr Mendoza in 4 months for HTN etc 30 min documented in this encounter [facility] Work Phone: 06-06-2022 Note HNO ID: [id number] Author: Stevie Mccarty MD, PhD Service: ? Author Type: Physician Type: Progress Notes Filed: 06/06/2022 11:18 AM Note Text: NEUROSURGERY FOLLOW UP OFFICE NOTE Stevie Mccarty MD, PhD Date of visit: June 06, 2022 Patient Name: Ms.Shirley Vern Ching Date of : 1945 Current Age: [age] year old Sex: female MRN/E# [id number] Last Office Visit: 04/25/2022 Chief Complaint: Patient [...] having ongoing ne (more content not included)... [facility] 04-25-2022 Note HNO ID: [id number] Author: Stevie Mccarty MD, PhD Service: ? Author Type: Physician Type: Progress Notes Filed: 05/05/2022 12:46 PM Note Text: NEUROSURGERY CONSULT NOTE Stevie Mccarty MD, PhD Date of visit: April 25, 2022 Patient Name: Ms.Shirley Vern Ching Date of : 1945 Current Age: [age] year old Sex: female MRN/E# [id number] Chief Complaint: Patient presents with: New Patient HISTORY OF PRESENT ILLNESS : The patient is a 76 year old, right handed female with a past medical history of diverticulitis, diverticulosis and HCL who is referred by Dr. Mendoza for neurosurgical evaluation. The patient presented to [facility] ED on 04/17/2022 after a fall. She [...] 5 5 Wrist extension 5 5 Finger flexion/management expert 5 5 Lower Extremity Right Left Hip [...] IMPRESSION: Nondisplaced intra-artic (more content not included)... [facility] 04-25-2022 History of Present illness Narrative NEUROSURGERY CONSULT NOTE Stevie Mccarty MD, PhD Date of visit: April 25, 2022 Patient Name: Ms.Shirley Vern Ching Date of : 1945 Current Age: [age] year old Sex: female MRN/E# [id number] Chief Complaint: Patient presents with: New Patient HISTORY OF PRESENT ILLNESS : The patient is a 76 year old, right handed female with a past medical history of diverticulitis, diverticulosis and HCL who is referred by Dr. Mendoza for neurosurgical evaluation. The patient presented to [facility] ED on 04/17/2022 after a fall. She [...] 5 5 Wrist extension 5 5 Finger flexion/management expert 5 5 Lower Extremity Right Left Hip [...] understanding and is in agreement with plan. Stevie Mccarty MD, PhD This note was partially generated using [employer] voice recognition system, and there may be some incorrect words, spellings, and punctuation that were not noted in checking the note before saving. documented in this encounter [facility] 04-17-2022 Discharge summary Note Date/Time April 17, 2022 7:07pm [facility] Medical Records Department [address] [place] [address] Emergency Department Summary 04/17/22 MR#: [id number] Acct: [id number] Name: LEDY CHING Rep #:[id number] : 1945 76 From: [place] Joseph MD PCP: Dr. Saima Mendoza MD Status:REG E R Location: ED HPI History of Present Illness Chief Complaint: Fall Informant: patient and spouse/S.O. Narrative Narrative: Patient slipped on the mud at home. She fell backwards. Her head hit the metalsiding of a garage. No loss of consciousness. She is not on blood thinners. She has pain in the back of the head and midportion of the neck. She does not have numbness tingling or weakness. No pain lower down in the spine or back. She has been up walking. No trouble with motion of her arms or legs. No chest pain or trouble breathing. [facility] Medical History Hypertension Home Medications amlodipine 10 mg tablet 10 mg PO DAILY 10/30/16 [History Last Taken Unknown] hydrochlorothiazide 25 mg tablet 50 mg PO DAILY 10/30/16 [History Last Taken Unknown] lisinopril 20 mg tablet 40 mg PO DAILY 10/30/16 [History Last Taken Unknown] meloxicam 15 mg tablet 15 mg PO DAILY 10/30/16 [History Last Taken Unknown] paroxetine HCl 20 mg tablet 20 mg PO DAILY 10/30/16 [History Last Taken Unknown] simvastatin 20 mg tablet 20 mg PO DAILY 10/30/16 [History Last Taken Unknown] trazodone 50 mg tablet 100 mg PO QHS 10/30/16 [History Last Taken Unknown] Carvedilol 12/05/19 [History Last Taken Unknown] Vitamin E (Dl,Tocopheryl Acet) [Vitamin E] 400 unit PO DAILY 12/05/19 [History Last Taken Unknown] ascorbic acid (vitamin C) 500 mg tablet 500 mg PO DAILY@0800 12/05/19 [History Last Taken Unknown] beta carotene 10,000 unit capsule 10,000 unit PO DAILY 12/05/19 [History Last Taken Unknown] cholecalciferol (vitamin D3) 50 mcg (2,000 unit) capsule 50 mcg PO DAILY 12/05/19 [History Last Taken Unknown] omeprazole 40 mg capsule,delayed release 40 mg PO DAILY 12/05/19 [History Last Taken Unknown] hydrocodone-acetaminophen 5-325mg 5mg-325mg 1 tab PO Q6H PRN PRN Pain 3 days #10TABLETS 12/22/20 [Rx Last Taken Unknown] hydrocodone-acetaminophen 5-325mg 5mg-325mg 1 tab PO Q6H PRN PRN Pain 3 days #10TABLETS 04/17/22 [Rx Last Taken Unknown] Allergy/AdvReac Type Severity Reaction Status Date / Time No Known Allergies Allergy Verified 04/17/22 18:28 Surgical History H/O: hysterectomy Social History Smoking Status: Never smoker ROS ROS ED Constitutional Constitutional ED: Denies chills or fever(s) Eyes Eyes: Denies change in vision ENT ENT ED: Denies rhinorrhea or sore throat Cardiovascular Cardiovascular: Denies chest pain, palpitations or racing heartbeat Respiratory/Chest Respiratory/Chest: Denies cough or dyspnea Gastrointestinal Gastrointestinal: Denies nausea or vomiting Genitourinary Genitourinary ED: Denies hematuria Musculoskeletal Musculoskeletal: Reports neck pain; Denies back pain Integumentary Denies Abrasions or rash Neurologic Neurologic: Reports headache(s); Denies paresthesias Endocrine Endocrinology: Denies polydipsia or polyuria Hematologic/Lymphatic Hematologic/Lymphatic: Denies easy bleeding or easy bruising Allergic/Immunologic Allergic/Immunologic ED: Denies urticaria EXAM Physical Exam Narrative Exam Narrative: Patient is sitting comfortably in bed. She is awake alert and oriented. HEENT: I do not see any contusions or abrasions on her head or face. I do not see any in the back of the scalp. There is some tenderness on the occipital area though. Neck shows some midline and bilateral tenderness in the upper half of the spine. Lungs are clear bilaterally Heart is regular. I hear no murmur gallop or rub. Abdomen is soft and nontender Extremities show no tenderness of the clavicle scapula's arms hips pelvis or legs. Neuro: Patient is alert oriented appropriate and acting normally per . Skin: No sign of contusions or abrasions yet developed at this time. Const Vital Signs: 04/17/22 18:24 04/17/22 18:45 04/17/22 19:42 Temperature 97 F L Temperature Source Temporal Pulse Rate 66 Respiratory Rate 18 Respiratory Effort Normal Blood Pressure 147/99 H Blood Pressure Mean 115 Pulse Ox 92 92 82 Oxygen Delivery Method Room Air Room Air Room Air Oxygen Flow Rate (L/min) 04/17/22 19:42 04/17/22 19:48 04/17/22 21:00 Temperature Temperature Source Pulse Rate 70 74 Respiratory Rate 17 17 Respiratory Effort Blood Pressure 155/75 H 132/97 H Blood Pressure Mean 101 108 Pulse Ox 95 96 94 Oxygen Delivery Method Nasal Cannula Nasal Cannula Nasal Cannula Oxygen Flow Rate (L/min) 3 3 3 MDM MDM MDM Narrative Medical decision making narrative: My independent interpretation of the CT of the head shows no acute process. This is consistent with radiology's reading. My independent interpretation of the cervical spine x-ray does show fracture on the right of C2. I was actually called by the tech to look at this film. Finalreading by radiology also shows nondisplaced intra-articular fracture of the lateral mass of C2 on the right. My independent interpretation of the x-ray shows some slight increased markings but no definite pneumonia. The reading did show bibasilar infiltrates consistent with pneumonia. I discussed this with the patient and her . They both have had a cold recently but they are both getting better. She is not coughing now. She statesshe is not short of breath. Our nurse got a single O2 sat reading at 82% on room air but she has been above that all the other times. She actually walked to the bathroom and back and had no dyspnea or symptoms at all. I do not think this represents a true pneumonia. Both she and her feel that she is notshort of breath and not having any pulmonary symptoms. I do not think we need to work this up further at this time for a single reading that was abnormal thathas not been reproduced again. I did discuss the case with Dr. Armenta. We discussed the findings of her CT. She is okay for discharge and he will follow her in the office on Friday. He recommends cervical collar. We have our c-collar is but we do not have a more comfortable or padded [place] type for her. I explained that it is important that she keeps this on. She has used hydrocodone before for pain and I will write a few of these. We discussed increasing fluid and fiber to avoid constipation. All questions by her and her were answered. Radiography Diagnostic Testing: Clinical Impression(s) from Imaging Studies Brain CT 04/17/22 19:36 IMPRESSION: Normal unenhanced CT scan of the brain. Electronically Signed: Phillip Agusitn MD at 20:59 EST Reading Location ID and State: [address] [place] [address] , Service support , Cervical Spine CT 04/17/22 19:36 IMPRESSION: Nondisplaced intra-articular fracture lateral mass C2 on the right. Electronically Signed: Phillip Agustin MD at 21:08 EST Reading Location ID and State: [facility] / [place] , Service support , ADDENDUM: 04/17/222117 IMPRESSION: Nondisplaced intra-articular fracture lateral mass C2 on the right. N.B. : The above Results were Read Back by Phillip Agustin MD to Guanaco Joseph MD, and understanding confirmed on 04/17/2022 21:11:16 (ET). Electronically Signed: Phillip Agustin MD at 21:08 EST Reading Location ID and State: [facility] / [place] , Service support , Chest X-Ray 04/17/22 20:18 IMPRESSION: Bibasilar infiltrates consistent with pneumonia. Recommend short-term follow-up to complete resolution. Electronically Signed: Agustin Leary MD at 20:31 EST , Discharge Plan Triage Chief Complaint: Fall ED Provider: Guanaco Joseph Dx/Rx/DC Orders Clinical Impression: C2 cervical fracture, Fall from slipping Instructions: Fx Neck Spine Prescriptions: New hydrocodone-acetaminophen [hydrocodone-acetaminophen] 5-325 mg tablet 1 tab PO Q6H PRN PRN (Reason: Pain) 3 Days Qty: 10 0RF No Action trazodone 50 MG tablet 100 mg PO QHS Label Comments: meloxicam 15 MG tablet 15 mg PO DAILY Label Comments: lisinopril 20 MG tablet 40 mg PO DAILY Label Comments: amlodipine 10 MG tablet 10 mg PO DAILY Label Comments: paroxetine HCl 20 MG tablet 20 mg PO DAILY Label Comments: simvastatin 20 MG tablet 20 mg PO DAILY Label Comments: hydrochlorothiazide 25 MG tablet 50 mg PO DAILY Label Comments: omeprazole 40 MG capsule,delayed release(DR/EC) 40 mg PO DAILY ascorbic acid (vitamin C) 500 MG tablet 500 mg PO DAILY@0800 beta carotene 10,000 UNIT capsule 10,000 unit PO DAILY cholecalciferol (vitamin D3) 50 MCG capsule 50 mcg PO DAILY Carvedilol Vitamin E (Dl,Tocopheryl Acet) [Vitamin E] 400 UNIT capsule 400 unit PO DAILY hydrocodone-acetaminophen [hydrocodone-acetaminophen] 1 TABLET tablet 1 tab PO Q6H PRN PRN (Reason: Pain) 3 Days Qty: 10 0RF Primary Care Provider: Saima Mendoza Referrals: Saima Mendoza MD [Primary Care Provider] - Kristopher Armenta DO [Med Staff - Active Staff] - (Call tomorrow for an appointment on Friday. I did discuss this with Dr. Armenta and he is expecting tosee you this Friday.) Disposition Disposition: Home, Self Care What to do if you have Problems For any increased pain, shortness of breath, bleeding, nausea or vomiting, chestpain, or any unexpected problems, contact your Primary Care Provider. Call [facility] ([phone]) or report to the closest Emergency Room. Call 911 if necessary. 04/17/222155 <Electronically signed by Guanaco Joseph MD> Cosigner Signature (if applicable): CC: Dr. Saima Mendoza MD ~ Signed [facility] Work Phone: [phone] [phone] History of Present illness Narrative* Patient is here today for 4-month follow-up on her osteoarthritis, depression cholesterol and medication management. * She notes that about 1 month ago she [...] never went. [facility] Work Phone: Evaluation + Plan note No data available for this section [facility] Evaluation noteNo assessment information available [facility] Work Phone: Evaluation note* Diagnosis Closed nondisplaced fracture of second cervical vertebra, unspecified fracture morphology, sequela- Primary Fall, sequela [facility] Routine general medical examination at [...] conditions Multiphasic screening documented in this encounter [facility] Work Phone: Evaluation note* Diagnosis Fall, sequela- Primary [facility] Diagnosis Asymptomatic menopausal state- Primary Current moderate episode of major depressive disorder, unspecified whether recurrent (CMS/HCC) Secondary hypertension Other secondary hypertension, unspecified Generalized osteoarthritis of multiple sites Generalized osteoarthrosis, involving multiple sites Hypercholesterolemia Pure hypercholesterolemia Mixed hyperlipidemia Gastroesophageal reflux disease without esophagitis Esophageal reflux Primary insomnia Persistent disorder of initiating or maintaining sleep documented in this encounter [facility] Work Phone: Evaluation note* Diagnosis Primary hypertension- [...] Hypercholesterolemia Pure hypercholesterolemia documented in this encounter [facility] Work Phone: Evaluation note* Diagnosis Preop examination- Primary Unspecified pre-operative examination Total knee replacement status, left Primary hypertension Unspecified essential hypertension Hypercholesterolemia Pure hypercholesterolemia Mixed hyperlipidemia Primary osteoarthritis of left knee documented in this encounter [facility] Work Phone: Evaluation note* Diagnosis Routine general medical examination at health care facility- Primary Routine general medical examination at a health care facility Screening mammogram for breast cancer Primary hypertension Unspecified essential hypertension Full code status Hypercholesterolemia Pure hypercholesterolemia Mixed hyperlipidemia Vitamin D deficiency Gastroesophageal reflux disease without esophagitis Esophageal reflux Screening for multiple conditions Multiphasic screening Wellness examination Current moderate episode of major depressive disorder without prior episode (Multi) Generalized osteoarthritis of multiple sites Generalized osteoarthrosis, involving multiple sites Cardiac risk counseling documented in this encounter [facility] Work Phone: Evaluation note* Diagnosis Preop testing- Primary Preoperative examination, unspecified Hypertension, unspecified type Arthritis Arthropathy, unspecified, site unspecified Left knee pain, unspecified chronicity Other specified injury of left quadriceps muscle, fascia and tendon, initial encounter [facility] general medical examination at health care facility- Primary Routine general medical examination at a [facility] facility Primary hypertension Unspecified essential hypertension Moderate mixed hyperlipidemia not requiring statin therapy Gastroesophageal reflux disease without esophagitis Esophageal reflux Hypercholesterolemia Pure hypercholesterolemia Current moderate episode of major depressive disorder without prior episode (Multi) Wellness examination Full code status Alcohol screening Screening for multiple conditions Multiphasic screening Asymptomatic menopausal state- Primary Current moderate episode of major depressive disorder, unspecified whether recurrent (Multi) Secondary hypertension Other secondary hypertension, unspecified Generalized osteoarthritis of multiple sites Generalized osteoarthrosis, involving multiple sites Hypercholesterolemia Pure hypercholesterolemia Mixed hyperlipidemia Gastroesophageal reflux disease without esophagitis Esophageal reflux Primary insomnia Persistent disorder of initiating or maintaining sleep Primary hypertension- Primary Unspecified essential hypertension Current moderate episode of major depressive disorder, unspecified whether recurrent (Multi) 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 Mixed hyperlipidemia Gastroesophageal reflux disease without esophagitis Esophageal reflux Generalized osteoarthritis of multiple sites Generalized osteoarthrosis, involving multiple sites Vitamin D deficiency Gait disorder Abnormality of gait Needs flu shot Need for prophylactic vaccination and inoculation against influenza Hypercholesterolemia Pure hypercholesterolemia Preop examination- Primary Unspecified pre-operative examination Total knee replacement status, left Primary hypertension Unspecified essential hypertension Hypercholesterolemia Pure hypercholesterolemia Mixed hyperlipidemia Primary osteoarthritis of left knee Routine general medical examination at health care facility- Primary Routine general medical examination at a health care facility Screening mammogram for breast cancer Primary hypertension Unspecified essential hypertension Full code status Hypercholesterolemia Pure hypercholesterolemia Mixed hyperlipidemia Vitamin D deficiency Gastroesophageal reflux disease without esophagitis Esophageal reflux Screening for multiple conditions Multiphasic screening Wellness examination Current moderate episode of major depressive disorder without prior episode (Multi) Generalized osteoarthritis of multiple sites Generalized osteoarthrosis, involving multiple sites Cardiac risk counseling Patellar tendon rupture, left, sequela- Primary Routine general medical examination at health care facility Routine general medical examination at a [facility] Generalized osteoarthritis of multiple sites Generalized osteoarthrosis, involving multiple sites Secondary hypertension Other secondary hypertension, unspecified Hypertension, unspecified type Primary hypertension Unspecified essential hypertension Insomnia, unspecified type Hypercholesterolemia Pure hypercholesterolemia Mixed hyperlipidemia Gastroesophageal reflux disease without esophagitis Esophageal reflux Current moderate episode of major depressive disorder without prior episode (Multi) Acute cystitis without hematuria- Primary Flu vaccine need Primary hypertension Unspecified essential hypertension Mixed hyperlipidemia Hypercholesterolemia Pure hypercholesterolemia Gastroesophageal reflux disease without esophagitis Esophageal reflux Current moderate episode of major depressive disorder without prior episode (Multi) Pulse irregularity documented in this encounter [facility] Work Phone: Evaluation note* Diagnosis Routine general medical examination at [facility] facility- Primary Routine general medical examination at a [facility] Primary hypertension Unspecified essential hypertension Moderate mixed hyperlipidemia not requiring statin therapy Gastroesophageal reflux disease without esophagitis Esophageal reflux Hypercholesterolemia Pure hypercholesterolemia Current moderate episode of major depressive disorder without prior episode (Multi) Wellness examination Full code status Alcohol screening Screening for multiple conditions Multiphasic screening Asymptomatic menopausal state- Primary Current moderate episode of major depressive disorder, unspecified whether recurrent (Multi) Secondary hypertension Other secondary hypertension, unspecified Generalized osteoarthritis of multiple sites Generalized osteoarthrosis, involving multiple sites Hypercholesterolemia Pure hypercholesterolemia Mixed hyperlipidemia Gastroesophageal reflux disease without esophagitis Esophageal reflux Primary insomnia Persistent disorder of initiating or maintaining sleep Primary hypertension- Primary Unspecified essential hypertension Current moderate episode of major depressive disorder, unspecified whether recurrent (Multi) 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 Mixed hyperlipidemia Gastroesophageal reflux disease without esophagitis Esophageal reflux Generalized osteoarthritis of multiple sites Generalized osteoarthrosis, involving multiple sites Vitamin D deficiency Gait disorder Abnormality of gait Needs flu shot Need for prophylactic vaccination and inoculation against influenza Hypercholesterolemia Pure hypercholesterolemia Preop examination- Primary Unspecified pre-operative examination Total knee replacement status, left Primary hypertension Unspecified essential hypertension Hypercholesterolemia Pure hypercholesterolemia Mixed hyperlipidemia Primary osteoarthritis of left knee Routine general medical examination at health care facility- Primary Routine general medical examination at a [facility] Screening mammogram for breast cancer Primary hypertension Unspecified essential hypertension Full code status Hypercholesterolemia Pure hypercholesterolemia Mixed hyperlipidemia Vitamin D deficiency Gastroesophageal reflux disease without esophagitis Esophageal reflux Screening for multiple conditions Multiphasic screening Wellness examination Current moderate episode of major depressive disorder without prior episode (Multi) Generalized osteoarthritis of multiple sites Generalized osteoarthrosis, involving multiple sites Cardiac risk counseling Patellar tendon rupture, left, sequela- Primary Routine general medical examination at [facility] care facility Routine general medical examination at a [facility] Generalized osteoarthritis of multiple sites Generalized osteoarthrosis, involving multiple sites Secondary hypertension Other secondary hypertension, unspecified Hypertension, unspecified type Primary hypertension Unspecified essential hypertension Insomnia, unspecified type Hypercholesterolemia Pure hypercholesterolemia Mixed hyperlipidemia Gastroesophageal reflux disease without esophagitis Esophageal reflux Current moderate episode of major depressive disorder without prior episode (Multi) Acute cystitis without hematuria- Primary Flu vaccine need Primary hypertension Unspecified essential hypertension Mixed hyperlipidemia Hypercholesterolemia Pure hypercholesterolemia Gastroesophageal reflux disease without esophagitis Esophageal reflux Current moderate episode of major depressive disorder without prior episode (Multi) documented in this encounter [facility] Work Phone: Evaluation note* Diagnosis Leg edema Edema [facility] medical examination at [facility] facility- Primary Routine general medical examination at [place] Primary hypertension Unspecified essential hypertension Moderate mixed hyperlipidemia not requiring statin therapy Gastroesophageal reflux disease without esophagitis Esophageal reflux Hypercholesterolemia Pure hypercholesterolemia Current moderate episode of major depressive disorder without prior episode (Multi) Wellness examination Full code status Alcohol screening Screening for multiple conditions Multiphasic screening Asymptomatic menopausal state- Primary Current moderate episode of major depressive disorder, unspecified whether recurrent (Multi) Secondary hypertension Other secondary hypertension, unspecified Generalized osteoarthritis of multiple sites Generalized osteoarthrosis, involving multiple sites Hypercholesterolemia Pure hypercholesterolemia Mixed hyperlipidemia Gastroesophageal reflux disease without esophagitis Esophageal reflux Primary insomnia Persistent disorder of initiating or maintaining sleep Primary hypertension- Primary Unspecified essential hypertension Current moderate episode of major depressive disorder, unspecified whether recurrent (Multi) 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 Mixed hyperlipidemia Gastroesophageal reflux disease without esophagitis Esophageal reflux Generalized osteoarthritis of multiple sites Generalized osteoarthrosis, involving multiple sites Vitamin D deficiency Gait disorder Abnormality of gait Needs flu shot Need for prophylactic vaccination and inoculation against influenza Hypercholesterolemia Pure hypercholesterolemia Preop examination- Primary Unspecified pre-operative examination Total knee replacement status, left Primary hypertension Unspecified essential hypertension Hypercholesterolemia Pure hypercholesterolemia Mixed hyperlipidemia Primary osteoarthritis of left knee Routine general medical examination at [facility] care facility- Primary Routine general medical examination at a [facility] facility Screening mammogram for breast cancer Primary hypertension Unspecified essential hypertension Full code status Hypercholesterolemia Pure hypercholesterolemia Mixed hyperlipidemia Vitamin D deficiency Gastroesophageal reflux disease without esophagitis Esophageal reflux Screening for multiple conditions Multiphasic screening Wellness examination Current moderate episode of major depressive disorder without prior episode (Multi) Generalized osteoarthritis of multiple sites Generalized osteoarthrosis, involving multiple sites Cardiac risk counseling Patellar tendon rupture, left, sequela- Primary Routine general medical examination at health care facility Routine general medical examination at a health care facility Generalized osteoarthritis of multiple sites Generalized osteoarthrosis, involving multiple sites Secondary hypertension Other secondary hypertension, unspecified Hypertension, unspecified type Primary hypertension Unspecified essential hypertension Insomnia, unspecified type Hypercholesterolemia Pure hypercholesterolemia Mixed hyperlipidemia Gastroesophageal reflux disease without esophagitis Esophageal reflux Current moderate episode of major depressive disorder without prior episode (Multi) Acute cystitis without hematuria- Primary Flu vaccine need Primary hypertension Unspecified essential hypertension Mixed hyperlipidemia Hypercholesterolemia Pure hypercholesterolemia Gastroesophageal reflux disease without esophagitis Esophageal reflux Current moderate episode of major depressive disorder without prior episode (Multi) Primary hypertension- Primary Unspecified essential hypertension Mixed hyperlipidemia Hypercholesterolemia Pure hypercholesterolemia Gastroesophageal reflux disease without esophagitis Esophageal reflux Vitamin D deficiency Current moderate episode of major depressive disorder without prior episode (Multi) documented in this encounter [facility] Work Phone: Evaluation note* Diagnosis Routine general medical examination at health care facility- Primary Routine general medical examination at a [facility] Primary hypertension Unspecified essential hypertension Moderate mixed hyperlipidemia not requiring statin therapy Gastroesophageal reflux disease without esophagitis Esophageal reflux Hypercholesterolemia Pure hypercholesterolemia Current moderate episode of major depressive disorder without prior episode (Multi) Wellness examination Full code status Alcohol screening Screening for multiple conditions Multiphasic screening Asymptomatic menopausal state- Primary Current moderate episode of major depressive disorder, unspecified whether recurrent (Multi) Secondary hypertension Other secondary hypertension, unspecified Generalized osteoarthritis of multiple sites Generalized osteoarthrosis, involving multiple sites Hypercholesterolemia Pure hypercholesterolemia Mixed hyperlipidemia Gastroesophageal reflux disease without esophagitis Esophageal reflux Primary insomnia Persistent disorder of initiating or maintaining sleep Primary hypertension- Primary Unspecified essential hypertension Current moderate episode of major depressive disorder, unspecified whether recurrent (Multi) 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 Mixed hyperlipidemia Gastroesophageal reflux disease without esophagitis Esophageal reflux Generalized osteoarthritis of multiple sites Generalized osteoarthrosis, involving multiple sites Vitamin D deficiency Gait disorder Abnormality of gait Needs flu shot Need for prophylactic vaccination and inoculation against influenza Hypercholesterolemia Pure hypercholesterolemia Preop examination- Primary Unspecified pre-operative examination Total knee replacement status, left Primary hypertension Unspecified essential hypertension Hypercholesterolemia Pure hypercholesterolemia Mixed hyperlipidemia Primary osteoarthritis of left knee Routine general medical examination at health care facility- Primary Routine general medical examination at a [facility] facility Screening mammogram for breast cancer Primary hypertension Unspecified essential hypertension Full code status Hypercholesterolemia Pure hypercholesterolemia Mixed hyperlipidemia Vitamin D deficiency Gastroesophageal reflux disease without esophagitis Esophageal reflux Screening for multiple conditions Multiphasic screening Wellness examination Current moderate episode of major depressive disorder without prior episode (Multi) Generalized osteoarthritis of multiple sites Generalized osteoarthrosis, involving multiple sites Cardiac risk counseling Patellar tendon rupture, left, sequela- Primary Routine general medical examination at health care facility Routine general medical examination at a health care facility Generalized osteoarthritis of multiple sites Generalized osteoarthrosis, involving multiple sites Secondary hypertension Other secondary hypertension, unspecified Hypertension, unspecified type Primary hypertension Unspecified essential hypertension Insomnia, unspecified type Hypercholesterolemia Pure hypercholesterolemia Mixed hyperlipidemia Gastroesophageal reflux disease without esophagitis Esophageal reflux Current moderate episode of major depressive disorder without prior episode (Multi) Acute cystitis without hematuria- Primary Flu vaccine need Primary hypertension Unspecified essential hypertension Mixed hyperlipidemia Hypercholesterolemia Pure hypercholesterolemia Gastroesophageal reflux disease without esophagitis Esophageal reflux Current moderate episode of major depressive disorder without prior episode (Multi) Primary hypertension- Primary Unspecified essential hypertension Mixed hyperlipidemia Hypercholesterolemia Pure hypercholesterolemia Gastroesophageal reflux disease without esophagitis Esophageal reflux Vitamin D deficiency Current moderate episode of major depressive disorder without prior episode (Multi) Asymptomatic menopausal state- Primary Full code status Primary hypertension Unspecified essential hypertension Mixed hyperlipidemia Hypercholesterolemia Pure hypercholesterolemia Gastroesophageal reflux disease without esophagitis Esophageal reflux Wellness examination ACP (advance care planning) Other specified counseling Current moderate episode of major depressive disorder without prior episode (Multi) Primary insomnia Persistent disorder of initiating or maintaining sleep Cardiac risk counseling documented in this encounter [facility] Work Phone: Evaluation note* Diagnosis Annual physical exam- Primary Routine general medical examination at a health care facility Encounter for screening examination for other mental health and behavioral disorders Encounter for immunization Need for other specified prophylactic vaccination against single bacterial disease Encounter for health-related screening Chronic right shoulder pain Pain in joint, shoulder region Knee locking, left Primary hypertension Unspecified essential hypertension [facility] Diagnosis Chronic right shoulder pain Pain in joint, shoulder region Knee locking, left [facility] Diagnosis Onset Date Resolution Status Admit Date Closed intertrochanteric fra cture of left hip acute September 16, 2024 8:04pm Fall acute September 16 8:04pm HTN (hypertension) chronic August 252024 8:04pm [facility] Work Phone: History and physical note Author Natali Barnes [facility] Note Date/Time September 16, 2024 8:22 pm [facility] Medical Records Department [facility] [place] [address] H&P Exam - Hospitalist 09/16/241958 MR#: [id number] Acct: [id number] Name: LEDY CHING Rep #:[id number] : 1945 79 From: Natali Barnes MD PCP: OUT OF TOWN DOCTOR Status:ADM IN Location: [facility] [id number] HPI - General General Date of Admission: 09/16/24 Date of Service: 09/16/24 Chief Complaint: Fall, L hip pain/LLE shortened and rotated. HPI Narrative The patient is a 79 y/o F w/ PMHx: HTN, HLD, Anxiety and Depression, GERD, CKD stage II per GFR trending who presents to the [facility] ED on 09/16/24 with history of mechanical fall in the kitchen unfortunately not using her walker landing on herleft hip with severe pain and debility following noting pain is severe sharp with shortened and rotated left lower extremity following this prompting immediate EMS call and transition to the hospital for evaluation. In the ED upon arrival patient in the ED bed laying noting pain 7 out of 10 in severity with improvement to only 6 out of 10 following ED pain medication interventions.Workup in the ED included T98.2, heart 62, BP 150/85, respiratory rate 14, 98% room air with most recent repeat vitals heart rate 60, BP 140/86, respiratory rate 18, 98% on room air, CBC with WBC 7.6, hemoglobin 12.3, platelet 252 without marked shift, BMP with BUN/Cr 28/0.83, GFR 72, glucose 158, CT brain andcervical spine CT with no acute intracranial cervical spinal fracture findings, moderate brain parenchymal volume loss and chronic microangiopathic changes, moderate multilevel cervical spondylitic changes, chest x-ray subtle hazy opacity right lung possibly artifactual, plain film of the hip and pelvis with noted comminuted fracture of the left proximal femur with moderate angulation involvement of both the lesser and greater trochanter, EKG with SB with PACs with no acute evidence of ischemia. ED discussed case with Orthopedic surgery, Dr. Best. [facility], [facility] Medical History (Updated 09/16/24 @ 20:[address] Natali Barnes MD) History of endometriosis CKD (chronic kidney disease), stage II Anxiety and depression Osteoarthritis GERD (gastroesophageal reflux disease) Diverticulitis High cholesterol Hypertension Home Medications ?Medication ?Instructions ?Recorded ?Last Taken ?Type amlodipine 10 mg tablet 10 mg PO DAILY 10/30/16 Unkn own History hydrochlorothiazide 25 mg tablet 50 mg PO DAILY Unknown History lisinopril 20 mg tablet 40 mg PO DAILY 10/30/16 Unkn own History meloxicam 15 mg tablet 15 mg PO DAILY 10/30/16 Unkn own History paroxetine HCl 20 mg tablet 20 mg PO DAILY 10/30/16 Un known History simvastatin 20 mg tablet 20 mg PO DAILY 10/30/16 Unkn own History trazodone 50 mg tablet 100 mg PO QHS 10/30/16 Unkno wn History Vitamin E (Dl,Tocopheryl Acet) 400 unit PO DAILY 12/04 Unknown History [Vitamin E] ascorbic acid (vitamin C) 500 mg 500 mg PO DAILY@0800 12/05/19 Unknown History tablet beta carotene 10,000 unit capsule 10,000 unit PO DAILY 12/05/19 Unknown History cholecalciferol (vitamin D3) 50 50 mcg PO DAILY Unknown History mcg (2,000 unit) capsule omeprazole 40 mg capsule,delayed 40 mg PO DAILY Unknown History release carvedilol 3.125 mg tablet 3.125 mg PO BID 09/16/24 Un known History Allergy/AdvReac Type Severity Reaction Status Date / Time No Known Allergies Allergy Verified 09/16/24 17:45 Family History (Updated 09/16/24 @ 20:[address] Natali Barnes MD) Father Esophageal cancer Mother CAD (coronary artery disease) Heart disease Hypertension Cancer Surgical History (Updated 09/16/24 @ 20:[address] Natali Barnes MD) Status post total left knee replacement S/P appendectomy H/O: hysterectomy Social History (Updated 09/16/24 @ 19:[address] Natali Barnes MD) household members: spouse Smoking Status: Never smoker alcohol intake: current alcohol intake frequency: holidays/special occasions only substance use type: does not use ROS ROS Narrative Admission Review of Systems: CONSTITUTIONAL: No weight loss, fever, chills, + weakness or fatigue. HEENT: Eyes: No visual loss, blurred vision, double vision or yellow sclerae. Ears, Nose, Throat: No hearing loss, sneezing, congestion, runny nose or sore throat. SKIN: No rash or itching, lesions, wounds. CARDIOVASCULAR: No chest pain, chest pressure or chest discomfort, palpitations,edema, orthopnea, syncopal events. RESPIRATORY: No shortness of breath, cough or sputum, wheezing, hemoptysis. GASTROINTESTINAL: + Chronic constipation. No anorexia, nausea, vomiting or diarrhea, abdominal pain, melena, BRBPR. GENITOURINARY: No dysuria, frequency, urgency or retention. NEUROLOGICAL: No headache, dizziness, syncope, paralysis, ataxia, numbness or tingling in the extremities, focal weakness, change in bowel or bladder control,seizure. MUSCULOSKELETAL: + muscle, back pain, joint pain or stiffness. HEMATOLOGIC: No anemia. + Easy bleeding/bruising. LYMPHATICS: No enlarged nodes. No history of splenectomy. PSYCHIATRIC: + History of anxiety and depression. ENDOCRINOLOGIC: No reports of sweating, cold or heat intolerance. No polyuria orpolydipsia. ALLERGIES: No history of asthma, hives, eczema or rhinitis. Vital Signs Vital Signs Vital Signs: 09/16/24 17:44 09/16/24 17:50 09/16/24 18:49 Temperature 98.2 F Temperature Source Oral Pulse Rate 62 56 L Respiratory Rate 14 16 Respiratory Effort Normal Respiratory Depth Normal Respiratory Pattern Normal Blood Pressure 150/85 H 179/92 H Blood Pressure Mean 106 121 Pulse Ox 98 97 Oxygen Delivery Method Room Air Room Air Room Air 09/16/24 19:49 Temperature Temperature Source Pulse Rate 60 Respiratory Rate 18 Respiratory Effort Respiratory Depth Respiratory Pattern Blood Pressure 148/86 H Blood Pressure Mean 106 Pulse Ox 98 Oxygen Delivery Method Room Air Weight Weight: 150 lb 5.684 oz Body Mass Index (BMI) 24.3 Physical Exam Narrative Physical Examination: General: Awake, alert, oriented x 3, remains cooperative, severely hard of hearing and does not have her hearing aids, laying in ED bed, reporting pain currently improved at 6 out of 10 in severity. Skin: Normal color, normal turgor, no icterus, no cyanosis except occasional stage ecchymoses, abrasion. HEENT: AT/NC, EOMI, PERRLA, MMM, no carotid bruits or JVD noted. Lungs: Mildly diminished, greater bases, proper effort, no rales, ronchi or wheezing. Heart: Mildly bradycardic with regular rhythm; no gallop, rub audible. Abdomen: Soft, NTTP, no marked distention or tympany, hyperactive BS, no appreciated HSM. Extremities: No cyanosis, no clubbing, mild ankle bilateral not markedly pittingedema, peripheral pulses intact, status post fall with left hip fracture with left lower extremity shortened and rotated. Neurological: Patient awake, alert, oriented as noted, cognitive function intact; pupils equally reactive to light and accommodation, cranial nerves grossly normal, moving all 4 extremities except expected limitation left lower extremity given fall with hip fracture, no focal deficits, strength severely globally decreased. Psychiatric: Affect appears fatigued, mildly uncomfortable, no acute evidence ofdepressive or anxiety feelings but does have underlying history. Results Lab / Micro Data 09/16/24 18:00 09/16/24 18:00 Labs: Laboratory Results - last 24 hr 09/16/24 18:00: WBC 7.6, RBC 4.23, Hgb 12.3, Hct 36.2 L, MCV 85.6, MCH 29.1, MCHC 34.0, RDW Std Deviation 40.2, RDW Coeff of Natalie 13.0, Plt Count 252, MPV 9.7, Immature Gran % (Auto) 0.300, Neut % (Auto) 63.7, Lymph % (Auto) 25.0, Ida% (Auto) 6.7, Eos % (Auto) 4.0, Baso % (Auto) 0.3, Absolute Neuts (auto) 4.8, Absolute Lymphs (auto) 1.89, Nucleated RBC % 0, Sodium 138, Potassium 3.5, Chloride 98, Carbon Dioxide 29.1, Anion Gap 11, BUN 28 H, Creatinine 0.83, EstimCreat Clear Calc 51.45, Est GFR (MDRD) Non-Af 72, BUN/Creatinine Ratio 33.1 H, Glucose 158 H, Calcium 9.6 Imaging Radiology Impression Cervical Spine CT 09/16/24 17:56 IMPRESSION: 1. No acute intracranial or cervical spine traumatic findings. 2. Moderate brain parenchymal volume loss and chronic microangiopathic changes. 3. Moderate multilevel cervical spondylotic changes. Reading Location: [id number] Brain CT 09/16/24 18:18 IMPRESSION: 1. No acute intracranial or cervical spine traumatic findings. 2. Moderate brain parenchymal volume loss and chronic microangiopathic changes. 3. Moderate multilevel cervical spondylotic changes. Reading Location: [id number] Chest X-Ray 09/16/24 18:22 IMPRESSION: Subtle hazy opacity over the right lung may be artifactual, though layering pleural effusion or infection could also appear similar. Reading Location: [facility] Hip/Pelvis X-Ray 09/16/24 18:22 IMPRESSION: Comminuted fracture of the left proximal femur with moderate angulation and involvement of both the lesser and greater trochanter. Recommend Orthopedic Surgery consultation. Reading Location: [id number] Assessment & Plan Assessment/Plan (1) Closed intertrochanteric fracture of left hip: (2) Fall: PLAN: Plan The patient is a 79 y/o F w/ PMHx: HTN, HLD, Anxiety and Depression, GERD, CKD stage II per GFR trending who presents to the [facility] ED on 09/16/24 with history of mechanical fall in the kitchen unfortunately not using her walker landing on herleft hip with severe pain and debility following noting pain is severe sharp with shortened and rotated left lower extremity following this prompting immediate EMS call and transition to the hospital for evaluation. #1. General debility, left hip pain s/p mechanical fall w/ comminuted fracture of the left proximal femur with moderate angulation and involvement of both the lesser and greater trochanter: Orthopedic surgery consulted from ED. Will admit to MS, maintain NPO after midnight for possible intervention, continue gentle IVFs, initiate gonzalez placement, monitor I/Os, frequent positioning, fall precautions, oral/IV pain regimen/anti-emetic regimen as needed. PT/OT followingoperative intervention. CM consulted for discharge planning. Patient also notessome discomfort to the left knee following recent fall, will obtain plain film especially given this is status post knee replacement status. Per NSQIP patient with low to maximally moderate cardiac periprocedural risk, expected long term facility placement given presentation, EKG with sinus bradycardia with PACs with no acute evidence of ischemia, agree with progressionto operative intervention. #2. Hyperglycemia without diabetic history: Admission glucose 158, possibly stress response however to be cautious will obtain hemoglobin A1c. #3. Chronic Kidney Disease Stage II per GFR trending: Admission BUN/Cr 28/0.83,GFR 72, baseline renal function primarily 0.6-0.8, repeat BMP in AM. #4. Hypertension: Continue home regimen including lisinopril, Coreg, amlodipine, hydrochlorothiazide with hold parameters as needed, PRN hydralazine. #5. Hyperlipidemia: Will continue patient statin therapy. #6. Anxiety and depression: Will continue patient home paroxetine and nightly trazodone regimen. #7. GERD: Will continue patient on PPI. #8. DVT prophylaxis: SCDs given planned OR as noted. #9. CODE status: Patient HCPOA and living will are not in place but she notes her would be her medical decision-maker if necessary. Discussed CODE status at length including difference between FULL code, DNR-CCA and DNR-CC status. Following discussions about the differences in these status, requested Full Code status. Discussed this concept several times to be sure patient was aware of the specifics given her hard of hearing status. Advanced Care Planning Face to Face Time: 16 minutes. Charges/Coding Visit Charges Inpatient E&M: 03798 Init Hosp L3 Procedures Hospitalists Procedures: 33270 Advncd Care Plan 30 Min 09/16/242021 <Electronically signed by Natali Barnes MD> Cosigner Signature (if applicable): CC: Dr. Natali Barnes MD~ Signed [facility] Work Phone: History of Present illness Narrative* [...] decides to go ahead with thevaccine series. [facility] Work Phone: History of Present illness Narrative* [...] decides to go ahead with thevaccine series. [facility] Work Phone: History of Present illness Narrative* Patient is here for routine 4-month follow-up for her hypertension, osteoarthritis, depression, high cholesterol and medication management. * She feels well overall and has no new complaints. -[facility] Work Phone: History of Present illness Narrative* Patient is here for routine follow-up on hypertension, cholesterol, insomnia and depression. * She is has an appointment next week with an orthopedic surgeon in [place] for her knees and back as she has limited mobility at this time. * It is for this reason that she is also requesting a handicap placard. * Patient showed up 1 hour late for her mammogram and therefore has to reschedule her appointment I told her that we will be happy to help her reschedule it. -[facility] Work Phone: Instructions* Name Dates Details Instructions not documented [facility] Work Phone: Instructions* Name Dates Details Instructions not documented [facility] Work Phone: Reason for referral (narrative)* Consultation (Routine) - Pending Review Specialty Diagnoses / Procedures Referred By Paxton mejias Referred To Contact Physical Therapy Diagnoses Generalized osteoarthritis of multiple sites Gait disorder Saima Mendoza MD [address] [facility], [address] [address] Referral ID Status Reason Start Date Expiration Date Visits Requested Visits Authorized [id number] Pending Review Specialty Services Required 02/28/2023 02/28/2024 1 1 [facility] Work Phone: Reason for referral (narrative)* Outpatient Procedure (Routine) - New Request Specialty Diagnoses / Procedures Referred By Contac t Referred To Contact [facility] [place] Diagnoses Preop testing Procedures ECG COMPLETE ECG ROUTINE ECG W/LEAST 12 LDS W/I&R Marivel Tracy MD [address] [facility] [address] [place] [address] [facility] [address] [place] [address] Referral ID Status Reason Start Date Expiration Date Visits Requested Visits Authorized [id number] New Request Auto-Generat ed Referral 10/07/2023 10/06/2024 1 1 [facility] for referral (narrative)* Outpatient Procedure (Urgent) - Closed Specialty Diagnoses / Procedures Referred By Contac t Referred To Contact [facility] [place] Diagnoses Leg edema Procedures US LEG VEIN DVT UNL VAS LAB DUP-SCAN XTR VEINS UNILATERAL/LIMITED STUDY Marivel Tracy MD [address] [facility] [address] [place] [address] [facility] [address] [place] [address] Referral ID Status Reason Start Date Expiration Date V isits Requested Visits Authorized [id number] Closed Auto-Generate d Referral 02/10/2024 02/09/2025 1 1 [facility] for referral (narrative)No reason for referral [facility] Work Phone: Reason for visit Narrative* Diagnostic Procedure Only (Routine) - Closed Specialty Diagnoses / Procedures Referred By Contac t Referred To Contact XR IMAGING Diagnoses Closed nondisplaced fracture of second cervical vertebra, unspecified fracture morphology, sequela Procedures XR CERV GENERAL 2V AP/LAT RADEX SPINE CERVICAL 2 OR 3 VIEWS Stevie Mccarty MD, PhD [address] [place] [address] Xr Imaging Referral ID Status Reason Start Date Expiration Date V isits Requested Visits Authorized [id number] Closed Auto-Generate d Referral 04/25/2022 05/25/2023 1 1 [facility] for visit Narrative* Cardiovascular (Routine) - Authorized Specialty Diagnoses / Procedures Referred By Paxton t Referred To Contact Diagnoses Pulse irregularity Procedures ECG 12 Lead Saima Mendoza MD [address] [facility], [address] [place] [address] Phone: tel: fax: Referral ID Status Reason Start Date Expiration Date V isits Requested Visits Authorized [id number] Authorized 12/03/2023 12/02/2024 1 1 [facility] Work Phone: Relmpn for visit Narrative* Outpatient Procedure (Urgent) - Closed Specialty Diagnoses / Procedures Referred By Paxton t Referred To Contact [facility] Diagnoses Leg edema Procedures US LEG VEIN DVT UNL VAS LAB DUP-SCAN XTR VEINS UNILATERAL/LIMITED STUDY Marivel Tracy MD [address] [place] [address] [facility] [address] [place] [address] Referral ID Status Reason Start Date Expiration Date V isits Requested Visits Authorized [id number] Closed Auto-Generate d Referral 02/10/2024 02/09/2025 1 1 [facility] for visit Narrative* Diagnostic Procedure Only (Routine) - Closed Specialty Diagnoses / Procedures Referred By Paxton t Referred To Contact XR IMAGING Diagnoses Knee locking, left Procedures XR KNEE GENERAL 4V AP BOTH/PA BOTH/LAT/MERC LEFT RADIOLOGIC EXAM KNEE COMPLETE 4/MORE VIEWS Rachel Frazier MD [address] [place] [address] Phone: tel: fax: [place] [address] Referral ID Status Reason Start Date Expiration Date V isits Requested Visits Authorized [id number] Closed Auto-Generate d Referral 09/11/2024 10/11/2025 1 1 [facility] Family History Mother Name Dates Details Family [...] malignant neoplasm of esophagus: Father(V16.0, Z80.0) Status:Active Relationship Condition Age at Onset Recorded Date/T donato Unknown Family History?- Unknown November 4:22pm Family History?- Unknown November 4:22pm Family History?Diabe kali, High Cholesterol, Hypertension, - Unknown December 04, 2013 4:22pm Unknown Family Member Name Dates Details Family [...] malignant neoplasm of esophagus: Father(V16.0, Z80.0) Status:Active Relationship Condition Age at Onset Recorded Date/T donato Unknown Family History?- Unknown November 3:22pm Family History?- Unknown November 3:22pm Family History?Diabe kali, High Cholesterol, Hypertension, - Unknown December 04, 2013 3:22pm Relationship Condition Age at Onset Recorded Date/T donato father Malignant neoplasm of esophagus Unknown mother Coronary artery disease Unknown Cardiac disease Unknown Hypertension Unknown Malignant neoplasm Unknown Chief Complaint Follow up visit for hypertension management. Pt fell a month ago. AC//AMDFollow up visit for hypertension management. AC//AMDFollow up visit for hypertension management. AC//AMD* pt is here for 4 mon f/u for HTN and cholesterol management. * BN//AMD * pt is here for4 mon f/u for HTN and cholesterol management. * BN//AMD Advance Directives Advance Directive Response Recorded Date/ Time Advance Directives No December 04, 2013 11:56am Living Will No December 22 11:58am Power of Injector Assembler No December 22, 2020 11:58am Advance Directive Response Recorded Date/ Time Advance Directives No December 04, 2013 10:56am Living Will No April 17, 6:45pm Power of Injector Assembler No April 17, 2022 6:45pm Advance Directive Response Recorded Date/ Time Advance Directives No December 04, 2013 11:56am Living Will No April 17 023 7:45pm Power of Injector Assembler No April 17, 2022 7:45pm Latest Code Status on File Code Status [...] Code Status Discussion Completed Decision Maker: Patient Date Activated Date Inactivated Comments 06/20/2022 12:07 PM Question Answer Comments Plan of Care: Code Status Discussion Completed Decision Maker: Patient Date Activated Date Inactivated Comments 06/20/2022 12:07 PM Question Answer Comments Plan of Care: Code Status Discussion Completed Decision Maker: Patient Advance Directive Response Recorded Date/ Time Do you have a Healthcare Power of Injector Assembler? No September 16, 2024 5:50pm Advance Directives No December 04, 2013 11:56am Summary Purpose Chief Complaint and Reason for Visit Chief Complaint fall Chief Complaint PREPROCEDURAL SURGERY Chief Complaint Admit Date FALL, L HIP FRACTURE September 16, 2024 8:0 4pm Reason for Visit Admit Date Closed intertrochanteric fracture of lef t hip September 16, 2024 8:04pm Fall September 16, 2024 8:04 pm HTN (hypertension) September 16, 2024 8:04 pm Reason for Referral Specialty Diagnoses / Procedures Referred By Paxton t Referred To Contact Diagnoses Fall, sequela Procedures CONSULT TO FALL CLINIC Stevie Mccarty MD, PhD [address] [place] [address] Referral ID Status Reason Start Date Expiration Date Visits Requested Visits Authorized [id number] Ref Not Required PCP Requested Referral 04/25/2022 07/24/2022 1 1 Specialty Diagnoses / Procedures Referred By Paxton t Referred To Contact XR IMAGING Diagnoses Closed nondisplaced fracture of second cervical vertebra, unspecified fracture morphology, sequela Procedures XR CERV GENERAL 2V AP/LAT RADEX SPINE CERVICAL 2 OR 3 VIEWS Stevie Mccarty MD, PhD [address] [place] [address] Xr Imaging Referral ID Status Reason Start Date Expiration Date Visits Requested Visits Authorized [id number] Authorized Auto-Generat ed Referral 04/25/2022 05/25/2023 1 1 Referral ID Status Reason Start Date Expiration Date V isits Requested Visits Authorized [id number] Closed Auto-Generate d Referral 04/25/2022 05/25/2023 1 1 Specialty Diagnoses / Procedures Referred By Contac t Referred To Contact Physical Therapy / PHYSICAL THERAPY Diagnoses Fall, sequela Procedures PT REHAB FOLLOW UP ORDER THERAPEUTIC EXERCISES RE, EA 15 MIN. Stevie Mccarty MD, PhD [address] [place] [address] Elijah Nguyen, PT [address] [place] [address] Referral ID Status Reason Start Date Expiration Date V isits Requested Visits Authorized [id number] Closed PCP Requested Referral Auto-Generated Referral 06/25/2022 09/23/2022 1 1 Specialty Diagnoses / Procedures Referred By Contac t Referred To Contact Radiology Diagnoses Asymptomatic menopausal state Procedures XR DEXA bone density Saima Mendoza MD [address] [facility], [address] [address] Referral ID Status Reason Start Date Expiration Date Visits Requested Visits Authorized [id number] Authorized Perform Procedure 10/24/2022 04/22/2023 1 1 Specialty Diagnoses / Procedures Referred By Contac t Referred To Contact Radiology Diagnoses Screening mammogram for breast cancer Procedures BI mammo bilateral screening tomosynthesis Saima Mendoza MD [address] [facility], [address] [address] Referral ID Status Reason Start Date Expiration Date Visits Requested Visits Authorized [id number] Authorized Perform Procedure 06/24/2023 06/23/2024 1 1 Additional Source Comments Goals (unrecognized section and content) Goals may be documented in a n alternate sectionGoals may be documented in an alternate sectionGoals may be documented in an alternate sectionGoals may be documented in an alternate sectionGoals may be documented in an alternate section No data available for this sectionGoals may be documented in an alternate section INFORMATION SOURCE (unrecogn ized section and content) DATE CREATED AUTHOR 02/13/2022 [employer] DATE CREATED AUTHOR AUTHOR'S ORGANIZ ATION 08/24/2022 [facility] DATE CREATED AUTHOR AUTHOR'S ORGANIZ ATION 08/25/2023 [facility] ([place]) DATE CREATED AUTHOR AUTHOR'S ORGANIZ ATION 11/14/2023 [facility] DATE CREATED AUTHOR AUTHOR'S ORGANIZ ATION 12/14/2023 [facility] DATE CREATED AUTHOR AUTHOR'S ORGANIZ ATION 12/19/2023 [facility] DATE CREATED AUTHOR AUTHOR'S ORGANIZ ATION 02/14/2024 [facility] DATE CREATED AUTHOR AUTHOR'S ORGANIZ ATION 08/15/2024 [facility] DATE CREATED AUTHOR AUTHOR'S ORGANIZ ATION 09/07/2024 [facility] DATE CREATED AUTHOR AUTHOR'S ORGANIZ ATION 09/15/2024 [facility] Care Teams (unrecognized sec tion and content) Team Status: Active Member Role Status Dates Dr. Saima Mendoza MD Family Provider Active Dr. Saima Mendoza MD Primary Care Provider Active Team Status: Inactive Member Role Status Dates Dr. Saima Mendoza MD Primary Care Provider Active Dr. Guanaco Joseph MD Emergency Provider Active Size Stamper Relationship Specialty Start Date End Date Saima Mendoza MD PCP - General Internal Medicine 06/07/11 Size Stamper Relationship Specialty Start Date End Date Saima Mendoza MD PCP - General Internal Medicine 06/07/11 Team Status: Inactive Member Role Status Dates Dr. Saima Mendoza MD Primary Care Provider Active Dr. Guanaco Joseph MD Attending Provider, Emergency Provider Active Team Status: Inactive Member Role Status Dates Dr. Saima eMndoza MD Primary Care Provi valentín, Attending Provider, Referring Provider Active Size Stamper Relationship Specialty Start Date End Date Saima Mendoza MD PCP - General Internal Medicine 06/07/11 Size Stamper Relationship Specialty Start Date End Date Saima Mendoza MD [address] [facility], [address] [place] [address] PCP - General 10/02/10 Saima Mendoza MD [address] [facility], [address] [address] PCP - [employer] Medicare [employer]age PCP 03/27/21 Size Stamper Relationship Specialty Start Date End Date Saima Mendoza MD PCP - General Internal Medicine 06/07/11 Size Stamper Relationship Specialty Start Date End Date Saima Mendoza MD PCP - General Internal Medicine 06/07/11 Size Stamper Relationship Specialty Start Date End Date Saima Mendoza MD [address] [facility], [address] [place] [address] PCP - General 10/02/10 Saima Mendoza MD [address] [facility], [address] [place] [address] PCP - [employer] Medicare Advantage PCP 02/24/21 Size Stamper Relationship Specialty Start Date End Date Saima Mendoza MD [address] [facility], [address] [place] [address] PCP - General 10/02/10 Saima Mendoza MD [address] [facility], [address] [place] [address] PCP - [employer] Medicare Advantage PCP 02/24/21 Team Status: Active Member Role Status Dates Dr. Saima Mendoza MD Primary Care Provider Active Dr. Edwin Elias MD Attending Provider Active Dr. Mercedes Lock MD Referring Provider Active Team Status: Inactive Member Role Status Dates Dr. Saima Mendoza MD Primary Care Provider Active Dr. Mercedes Lock MD Attending Provider, Referring P bill Active Size Stamper Relationship Specialty Start Date End Date Saima Mendoza MD [address] [facility], [address] [address] PCP - General 10/02/10 Saima Mendoza MD [address] [facility], [address] [address] PCP - [employer] Medicare Advantage PCP 02/24/21 Size Stamper Relationship Specialty Start Date End Date Saima Mendoza MD [address] [facility], [facility] [address] [place] [address] PCP - General 10/02/10 Saima Mendoza MD [address] [facility], [address] [place] [address] PCP - [employer] Medicare Advantage PCP 02/24/21 Size Stamper Relationship Specialty Start Date End Date Saima Mendoza MD PCP - General Internal Medicine 06/07/11 Size Stamper Relationship Specialty Start Date End Date Saima Mendoza MD [address] [facility], [address] [address] PCP - General 10/02/10 Saima Mendoza MD [address] [facility], [address] [address] PCP - [employer] Medicare Advantage PCP 02/24/21 Size Stamper Relationship Specialty Start Date End Date Saima Mendoza MD [address] [facility], [address] [address] PCP - General 10/02/10 Saima Mendoza MD [address] [facility], [address] [address] PCP - [employer] Medicare Advantage PCP 02/24/21 Size Stamper Relationship Specialty Start Date End Date Saima Mendoza MD PCP - General Internal Medicine 06/07/11 Size Stamper Relationship Specialty Start Date End Date Saima Mendoza MD [address] [facility], [address] [address] PCP - General 10/02/10 Saima Mendoza MD [address] [facility], [address] [address] PCP - [employer] Medicare Advantage PCP 02/24/21 Size Stamper Relationship Specialty Start Date End Date Saima Mendoza MD [address] [facility], [address] [place] [address] PCP - General 10/02/10 Saima Mendoza MD [address] [facility], [address] [place] [address] PCP - [employer] Medicare Advantage PCP 02/24/21 Panda Robles MD [address] [facility] [address] [place] [address] Consulting Physician Gastroenterology 08/23/24 Size Stamper Relationship Specialty Start Date End Date Rachel Frazier MD [address], [place] [id number] PCP - General Internal Medicine/Pediatrics 09/11/24 Size Stamper Relationship Specialty Start Date End Date Rachel Frazier MD [address], [place] [address] PCP - General Internal Medicine/Pediatrics 09/11/24 Team Status: Active Member Role/Relationship Status Dates Out of [facility] Doctor Primary Care Provider Active Team Status: Active Member Role/Relationship Status Dates Gerry Escalante MD Referring Provider Active Star t: September 16, 2024 Gerry Escalante MD Emergency Provider Active Star t: September 16, 2024 Out of [facility] Doctor Primary Care Provider Active Start: September 16, 2024 Dr. Natali Barnes MD Admit Provider Active St art: September 16, 2024 Dr. Natali Barnes MD Attending Provider Active Start: September 16, 2024 Dr. Natali Barnes MD Other Provider Active St art: September 16, 2024 Source Comments (unrecognize d section and content) In the event this informatio n is protected by the Federal Confidentiality of Alcohol and Drug Abuse Patient Records regulations: The Federal rules restrict any use of the information to criminally investigate or prosecute any alcohol or drug abuse patient.[facility] HealthIn the event this information is protected by the Federal Confidentiality of Alcohol and Drug Abuse Patient Records regulations: The Federal rules restrict any use of the information to criminally investigate or prosecute any alcohol or drug abuse patient.[facility] HealthIn the event this information is protected by the Federal Confidentiality of Alcohol and Drug Abuse Patient Records regulations: The Federal rules restrict any use of the information to criminally investigate or prosecute any alcohol or drug abuse patient.[facility] HealthIn the event this information is protected by the Federal Confidentiality of Alcohol and Drug Abuse Patient Records regulations: The Federal rules restrict any use of the information to criminally investigate or prosecute any alcohol or drug abuse patient.[facility] HealthIn the event this information is protected by the Federal Confidentiality of Alcohol and Drug Abuse Patient Records regulations: The Federal rules restrict any use of the information to criminally investigate or prosecute any alcohol or drug abuse patient.[facility] HealthIn the event this information is protected by the Federal Confidentiality of Alcohol and Drug Abuse Patient Records regulations: The Federal rules restrict any use of the information to criminally investigate or prosecute any alcohol or drug abuse patient.[facility] HealthIn the event this information is protected by the Federal Confidentiality of Alcohol and Drug Abuse Patient Records regulations: The Federal rules restrict any use of the information to criminally investigate or prosecute any alcohol or drug abuse patient.[facility] HealthIn the event this information is protected by the Federal Confidentiality of Alcohol and Drug Abuse Patient Records regulations: The Federal rules restrict any use of the information to criminally investigate or prosecute any alcohol or drug abuse patient.[facility] HealthIn the event this information is protected by the Federal Confidentiality of Alcohol and Drug Abuse Patient Records regulations: The Federal rules restrict any use of the information to criminally investigate or prosecute any alcohol or drug abuse patient.[facility] Reason for Visit (unrecogniz ed section and content) Reason Comments New Patient Reason Comments Appointment [facility] 06/24 Reason Comments PT Eval Specialty Diagnoses / Procedures Referred By Contac t Referred To Contact Diagnoses Fall, sequela Procedures [facility] TO [facility] Stevie Mccarty MD, PhD [address] [place] [address] Elijah Nguyen, PT [address] [place] [address] Referral ID Status Reason Start Date Expiration Date V isits Requested Visits Authorized [id number] Closed PCP Requested Referral 04/25/2022 07/24/2022 1 1 Reason Comments Missed Appointment Reason Comments Establish Care left knee weakness h as had 3 surgery to knee with history of TK. FOR RECORDS PERTAINING TO PATIENTS WHO ARE [...] BE BASED ON THE PRIMARY CLINICAL RECORDS. [employer] provides no warranty or guarantee of the accuracy or completeness of information in this document.
[2024-09-17] VITALS (16 sets, daily range): BP systolic 100–137; BP diastolic 55–94; PULSE 60–87; RESP 14–20; TEMP 36.3–37.3; O2SAT 82–100; BMI 26.4
[2024-09-17 05:12] LABS: Hematocrit 28.6 % (37-47); Hemoglobin 9.6 g/dL (12.0-15.0); Immature Granulocytes Count 0.020 X10^3/uL (0.0-0.0); Mean Corp Hgb Conc 33.6 g/dL (32-36); Mean Corpuscular Volume 87.2 fL (81-99); Mean Platelet Vol. 9.7 fl (6.2-12.0); NRBC Flagged by Analyzer 0 % (0-5); Platelet Count 220 K/mm3 (150-450); RBC Distribution Width CV 13.1 % (11.6-14.6); RBC Distribution Width SD 41.9 fl (35.1-43.9); Red Blood Count 3.28 M/mm3 (4.2-5.4); White Blood Count 8.1 K/mm3 (4.4-11.0)
[2024-09-17 05:43] LABS: AST(SGOT) 22 U/L (<=31); Alanine Aminotransfer ALT/SGPT 9 U/L (<=34); Albumin, Serum 3.5 g/dL (3.4-4.8); Alkaline Phosphatase 63 U/L (35-104); Anion Gap 8 (5-15); BUN 28 mg/dL (4-19); BUN/Creat Ratio 36.5 RATIO (10-20); Calcium,Total 8.9 mg/dL (7.6-11.0); Carbon Dioxide 31.2 mmol/L (21.0-32.0); Chloride 101 mmol/L (98-108); Estimated Creatinine Clearance 50.68 ml/min (50-250); Globulin 1.9 g/dL (2.2-4.2); Glucose 119 mg/dL (70-99); Potassium 3.8 mmol/L (3.3-5.1)
--- NOTE | 2024-09-17 12:24 | NURSING ---
Taken to surgery.
[2024-09-17] MEDS: Lactated Ringers 1,000 ML 15 ML IV (13:10)
--- NOTE | 2024-09-17 13:21 | CONS.ORTHO ---
HPI Consult Data Date of Consult: 09/17/24 HPI Narrative HPI Narrative: MIKEL CHATMAN, is a 79 F who presents due to left hip pain after a fall. Reportedly on September 16, 2024 patient got up without her walker. She fell. She denies pre-existing left hip pain. She does have pre-existing left knee issues. She has had 3 previous left knee surgeries. She denies fever or chills. Denies head injury or loss of consciousness. After falling yesterday she could not ambulate. She was brought to the hospital diagnosed with a hip fracture. Orthopedics appropriately consulted. Admitted to the medical service. Patient does live at home with her . Denies drug allergies. Denies history of blood clots DVTs or pulmonary embolism. [facility] Medical History History of endometriosis CKD (chronic kidney disease), stage II Anxiety and depression Osteoarthritis GERD (gastroesophageal reflux disease) Diverticulitis High cholesterol Hypertension Home Medications ?Medication ?Instructions ?Recorded ?Last Taken ?Type amlodipine 10 mg tablet 10 mg PO DAILY BP 10/30/16 09/16/24 History hydrochlorothiazide 25 mg tablet 50 mg PO DAILY BP 10/30/16 09/16/24 History lisinopril 20 mg tablet 40 mg PO DAILY BP 10/30/16 09/16/24 History meloxicam 15 mg tablet 15 mg PO DAILY knee, neck, and 10/30/16 09/16/24 History shoulder pain paroxetine HCl 20 mg tablet 20 mg PO DAILY depression 10/30/16 09/16/24 History simvastatin 20 mg tablet 20 mg PO DAILY cholesterol 10/30/16 09/15/24 History trazodone 50 mg tablet 100 mg PO QHS sleep 10/30/16 09/15/24 History Vitamin E (Dl,Tocopheryl Acet) 400 unit PO DAILY supplement 12/05/19 09/16/24 History [Vitamin E] ascorbic acid (vitamin C) 500 mg 500 mg PO DAILY@0800 supplement 12/05/19 09/16/24 History tablet beta carotene 10,000 unit capsule 10,000 unit PO DAILY suppleme 12/05/19 09/16/24 History cholecalciferol (vitamin D3) 50 50 mcg PO DAILY supplement 12/05/19 09/16/24 History mcg (2,000 unit) capsule omeprazole 40 mg capsule,delayed 40 mg PO DAILY GERD 12/05/19 09/14/24 History release carvedilol 3.125 mg tablet 3.125 mg PO DAILY BP 09/16/24 09/16/24 History Allergy/AdvReac Type Severity Reaction Status Date / Time No Known Allergies Allergy Verified 09/17/24 12:59 Family History Father Esophageal cancer Mother CAD (coronary artery disease) Heart disease Hypertension Cancer Surgical History Status post total left knee replacement S/P appendectomy H/O: hysterectomy Social History household members: spouse Smoking Status: Never smoker alcohol intake: current alcohol intake frequency: holidays/special occasions only substance use type: does not use ROS ROS Narrative Denies any recent changes to eyes ears nose or throat heart or lungs bowel or bladder. Vital Signs Vital Signs Vital Signs: 09/16/24 17:44 09/16/24 17:50 09/16/24 18:49 Temperature 98.2 F Temperature Source Oral Pulse Rate 62 56 L Respiratory Rate 14 16 Respiratory Effort Normal Respiratory Depth Normal Respiratory Pattern Normal Blood Pressure 150/85 H 179/92 H Blood Pressure Mean 106 121 Blood Pressure Source Blood Pressure Position Blood Pressure Location Pulse Ox 98 97 Oxygen Delivery Method Room Air Room Air Room Air Oxygen Flow Rate (L/min) 09/16/24 19:49 09/16/24 21:00 09/16/24 21:45 Temperature 97.8 F 97.9 F Temperature Source Oral Pulse Rate 60 97 66 Respiratory Rate 18 18 18 Respiratory Effort Respiratory Depth Respiratory Pattern Blood Pressure 148/86 H 130/71 H 120/71 Blood Pressure Mean 106 90 87 Blood Pressure Source Monitor Blood Pressure Position Semi-Fowlers Blood Pressure Location Left Arm Pulse Ox 98 99 97 Oxygen Delivery Method Room Air Nasal Cannula Oxygen Flow Rate (L/min) 2 09/16/24 22:57 09/16/24 23:01 09/17/24 03:45 Temperature 98.3 F Temperature Source Oral Pulse Rate 62 Respiratory Rate 17 Respiratory Effort Normal Non-Labored Respiratory Depth Normal Respiratory Pattern Normal Blood Pressure 111/55 L Blood Pressure Mean 73 Blood Pressure Source Monitor Blood Pressure Position Supine Blood Pressure Location Left Arm Pulse Ox 98 98 98 Oxygen Delivery Method Nasal Cannula Nasal Cannula Nasal Cannula Oxygen Flow Rate (L/min) 2 2 2 09/17/24 03:53 09/17/24 07:45 09/17/24 08:26 Temperature 98.7 F Temperature Source Temporal Pulse Rate 60 Respiratory Rate 18 Respiratory Effort Normal Non-Labored Normal Non-Labored Respiratory Depth Normal Normal Respiratory Pattern Normal Normal Blood Pressure 112/55 L Blood Pressure Mean 74 Blood Pressure Source Monitor Blood Pressure Position Supine Blood Pressure Location Left Arm Pulse Ox 96 Oxygen Delivery Method Nasal Cannula Nasal Cannula Nasal Cannula Oxygen Flow Rate (L/min) 2 2 2 09/17/24 13:10 Temperature 99.1 F Temperature Source Temporal Pulse Rate 63 Respiratory Rate 20 H Respiratory Effort Respiratory Depth Respiratory Pattern Blood Pressure 129/57 H Blood Pressure Mean 81 Blood Pressure Source Monitor Blood Pressure Position Semi-Fowlers Blood Pressure Location Right Arm Pulse Ox 95 Oxygen Delivery Method Nasal Cannula Oxygen Flow Rate (L/min) 2 Weight Weight: 65.6 kg Body Mass Index (BMI) 26.4 Physical Exam Narrative Left hip is shortened and externally rotated. She is holding her left knee bent at 90 degrees. She does not want to move her left knee because of the left hip pain. She can gently plantarflex dorsiflex toes and ankles on the left. On the right she has good alignment. No pain at the right side. No pain with right hip motion. Left hip has pain on palpation. Left hip was initialed per protocol. Left knee incision is well-healed. X-rays AP and lateral of the left hip with AP pelvis shows a displaced intertrochanteric left hip fracture. Left knee x-rays reviewed showing total knee replacement. There has been patella fracture surgery as well as cementation of a mesh component into her upper tibia. No obvious acute fractures or dislocations. CT of the neck and head reviewed reports. Chest x-ray report reviewed Medical Records Data Attestation: I reviewed the patient's medical records Lab / Micro Data Attestation: I reviewed the patient's lab results. 09/17/24 04:45 09/17/24 04:45 Labs: Laboratory Results - last 24 hr 09/16/24 18:00: WBC 7.6, RBC 4.23, Hgb 12.3, Hct 36.2 L, MCV 85.6, MCH 29.1, MCHC 34.0, RDW Std Deviation 40.2, RDW Coeff of Natalie 13.0, Plt Count 252, MPV 9.7, Immature Gran % (Auto) 0.300, Neut % (Auto) 63.7, Lymph % (Auto) 25.0, [place] % (Auto) 6.7, Eos % (Auto) 4.0, Baso % (Auto) 0.3, Absolute Neuts (auto) 4.8, Absolute Lymphs (auto) 1.89, Nucleated RBC % 0, Sodium 138, Potassium 3.5, Chloride 98, Carbon Dioxide 29.1, Anion Gap 11, BUN 28 H, Creatinine 0.83, Estim Creat Clear Calc 51.45, Est GFR (MDRD) Non-Af 72, BUN/Creatinine Ratio 33.1 H, Glucose 158 H, Calcium 9.6, Magnesium 1.9 09/17/24 04:45: WBC 8.1, RBC 3.28 L, Hgb 9.6 L, Hct 28.6 L, MCV 87.2, MCH 29.3, MCHC 33.6, RDW Std Deviation 41.9, RDW Coeff of Natalie 13.1, Plt Count 220, MPV 9.7, Immature Gran % (Auto) 0.200, Neut % (Auto) 75.3 H, Lymph % (Auto) 14.5 L, [place] % (Auto) 8.0, Eos % (Auto) 1.6, Baso % (Auto) 0.4, Absolute Neuts (auto) 6.1, Absolute Lymphs (auto) 1.18, Nucleated RBC % 0, Sodium 140, Potassium 3.8, Chloride 101, Carbon Dioxide 31.2, Anion Gap 8, BUN 28 H, Creatinine 0.77, Estim Creat Clear Calc 50.68, Est GFR (MDRD) Non-Af 78, BUN/Creatinine Ratio 36.5 H, Glucose 119 H, Hemoglobin A1c 5.9 H, Calcium 8.9, Total Bilirubin 0.50, AST 22, ALT 9, Alkaline Phosphatase 63, Total Protein 5.4 L, Albumin 3.5, Globulin 1.9 L, Albumin/Globulin Ratio 1.8, Blood Type A POSITIVE, Antibody Screen NEGATIVE Imaging Radiology Impression Cervical Spine CT 09/16/24 17:56 IMPRESSION: 1. No acute intracranial or cervical spine traumatic findings. 2. Moderate brain parenchymal volume loss and chronic microangiopathic changes. 3. Moderate multilevel cervical spondylotic changes. Reading Location: [facility] Brain CT 09/16/24 18:18 IMPRESSION: 1. No acute intracranial or cervical spine traumatic findings. 2. Moderate brain parenchymal volume loss and chronic microangiopathic changes. 3. Moderate multilevel cervical spondylotic changes. Reading Location: [facility] Chest X-Ray 09/16/24 18:22 IMPRESSION: Subtle hazy opacity over the right lung may be artifactual, though layering pleural effusion or infection could also appear similar. Reading Location: [id number] Hip/Pelvis X-Ray 09/16/24 18:22 IMPRESSION: Comminuted fracture of the left proximal femur with moderate angulation and involvement of both the lesser and greater trochanter. Recommend Orthopedic Surgery consultation. Reading Location: [id number] Knee X-Ray 09/16/24 20:20 IMPRESSION: No acute injury [facility] & Plan Assessment/Plan (1) Closed intertrochanteric fracture of left hip: QUALIFIERS: Encounter type: initial encounter Fracture alignment: displaced Qualified Code(s): S72.142A - Displaced intertrochanteric fracture of left femur, initial encounter for closed fracture PLAN: Her diagnosis and treatment options regarding her left hip fracture discussed with her and her and her son who are at the bedside. They understand she has a displaced intertrochanteric fracture. I explained surgical internal fixation is typical recommended procedure for that. Risk of surgery including but not limited to from operative or postoperative complications. Risk of anesthetic complications such as heart attacks, strokes, seizures, or . Risk of infections. Risk of damage to nerves arteries tendons. Risk of inadvertent fractures or dislocations. Risk of bone or wound healing complications. Possibility of nonunion malunion pain stiffness weakness. Possible need for further surgery such as hardware removal. Risk of DVT PE and other potential complications could lead to or disability explained. No guarantees were stated or implied. All of their questions were answered. Appropriate informed consent was obtained and signed for surgical intervention. They understand we will plan to use aspirin for DVT prevention. They are comfortable with that. They understand she will be partial weightbearing with a walker. They understand if she continues to have left knee problems after surgery she would need to see her doctor in [place] for that. They understand and agree. Plan to use Ancef for perioperative antibiotic.
--- NOTE | 2024-09-17 13:26 | PCM.PRE.AN2 ---
ASA Classification* ASA Classification ASA Classification: 3 Assessment & Plan Anesthesia* Anesthesia Assessment Anesthesia Assessment: Discussed sedation and/or anesthesia options, risks, benefits, and alternatives with patient/parents/legal guardian/POA. Questions invited. The patient/parents/legal guardian/POA seems to understand and agrees to proceed with anesthesia plan. Reviewed the physical assessment, medical history, allergy history and patient home medications list prior to surgery/procedure/anesthetic and documented any changes. Performed airway and anesthesia risk assessments. Anesthesia Type Anesthesia Type: General History Source History Obtained from:: Patient Anesthesia Focused Assessment* Temperature: 99.1 F Pulse Rate: 63 Blood Pressure: 129/57 Respiratory Rate: 20 Pulse Ox: 95 Oxygen Delivery Method: Nasal Cannula Oxygen Flow Rate (L/min): 2 Airway Assessment Mouth opens: >3 cm Mallampati Score: I Teeth Condition: Intact Neck Range of motion (ROM): Full ROM Labs Anesthesia Preop lab: CBC WBC 8.1 K/mm3 (4.4-11.0) 09/17/24 04:45 09/17/24 RBC 3.28 M/mm3 (4.2-5.4) L 09/17/24 04:45 09/17/24 Hgb 9.6 g/dL (12.0-15.0) L 09/17/24 04:45 09/17/24 Hct 28.6 % (37-47) L 09/17/24 04:45 09/17/24 Plt Count 220 K/mm3 (150-450) 09/17/24 04:45 09/17/24 CHEMISTRY Potassium 3.8 mmol/L (3.3-5.1) 09/17/24 04:45 09/17/24 Sodium 140 mmol/L (133-145) 09/17/24 04:45 09/17/24 Magnesium 1.9 mg/dL (1.5-2.2) 09/16/24 18:00 09/16/24 BUN 28 mg/dL (4-19) H 09/17/24 04:45 09/17/24 Creatinine 0.77 mg/dL (0.70-1.20) 09/17/24 04:45 09/17/24 Glucose 119 mg/dL (70-99) H 09/17/24 04:45 09/17/24 TSH 1.65 uIU/mL (0.358-3.74) 05/29/22 09:11 05/29/22 COAG PT 13.5 SECONDS (11.7-14.9) 12/04/13 07:45 12/04/13 Pre-Assessment Diagnosis/Proposed Procedure Planned Operative Procedure(s): Left Hip Gamma Nail Anesthesia History Anesthesia History - materials and processes manager: Anesthesia History - materials and processes manager Hx Hospitalization No 12/05/19 20:25 Any Problems With Anesthesia Yes: Pt said if given too 09/17/24 03:45 fast, it makes her heart leap. Cholinesterase deficiency No 09/17/24 03:45 You/Your Family Experience No 09/17/24 03:45 fever (hyperthermia) with Relationship Recent Exposure to Contagious No 09/17/24 03:45 Disease Does patient have nerve No 09/17/24 03:45 stimulator Patient instructed to have device shut off --Does patient have Pacemaker No 09/17/24 13:10 or ICD? When Was Last Pacemaker Check QUESTION #4 FULL TEXT: You/Your Family Experience fever (hyperthermia) with Anesthesia Last Oral Intake Last Oral intake: Last Oral Intake NPO since 00:00 09/17/24 13:10 Meds taken in AM with sips of water? Meds patient instructed to take am of surgery PONV PONV - materials and processes manager: PONV - materials and processes manager Female HX of Motion Sickness HX of N/V After Surgery Non-Smoker Duration of Surgery greater than 60 minutes Number of Risk Factors PONV Score Height & Weight Height & Weight: Anesthesia: Height & Weight Height 5 ft 2 in 09/17/24 13:10 Weight: 65.6 kg 09/17/24 13:10 Body Mass Index (BMI) 26.4 09/17/24 13:10 Respiratory Assessment Respiratory Assessment - materials and processes manager: Respiratory Tract Infection Hx - materials and processes manager Hx Respiratory Tract Infection No 09/17/24 03:45 STOP Sleep Apnea STOP Sleep Apnea - materials and processes manager: STOP Sleep Apnea - materials and processes manager Hx Hypertension Yes 09/17/24 11:36 Hx Sleep Apnea No 09/16/24 21:23 CPAP No 09/16/24 21:23 BIPAP No 09/16/24 21:23 Do you snore loudly (louder Yes 09/16/24 21:23 than talking or can be heard Do you often feel tired/ Yes 09/16/24 21:23 fatigued/ sleepy during daytime? Has anyone observed you stop No 09/16/24 21:23 breathing during sleep? STOP Results Positive 09/16/24 21:23 QUESTION #5 FULL TEXT : Do you snore loudly (louder than talking or can be heard through closed doors)? Tobacco Use History Tobacco Use History - materials and processes manager: Tobacco Use History - materials and processes manager Tobacco Use Smoking Status Never smoker 09/16/24 21:23 Hx Tobacco Use No 09/16/24 21:23 Years Smoking Packs Smoked per Day Smoking Cessation Date was within the last 15 years Hx Smoking Cessation Date Hx Smoking Cessation Counseling Hematologic Medial History Hematologic Hx - materials and processes manager: Hematologic Medical Hx - cosmetician Hx of Blood Transfusion No 09/16/24 21:23 Hx of Transfusion in last 3 No 09/16/24 21:23 Months Date of Last Transfusion (if within last 3 months) Ever experience any problems No 09/16/24 21:23 with transfusion(s)? Specify any problems Hx of Preganancy in last 3 No 09/16/24 21:23 Months Nurse Filling Out Transfusion EVIZZO 09/16/24 21:23 & Questions: Date: 09/16/24 09/16/24 21:23 Time: 21:47 09/16/24 21:23 Patient unable to answer at this time (ie. confused, unrespo /Reproduction History /Reproductive History - materials and processes manager: /Reproductive Hx- materials and processes manager Hx Now No 09/17/24 03:45 Gestational Age (in weeks): EDC: Hx Hx Para Hx Section SAB No 09/17/24 03:45 Active Medications Active Medications: Current Medications Generic Name Dose Route Start Last Admin Trade Name Freq PRN Reason Stop Dose Admin Acetaminophen 650 mg 09/16/24 21:38 09/16/24 23:35 Acetaminophen 325 Mg Tablet PO 650 mg Q4H PRN PRN Administration Fever, pain 1-10/10 Al Hydroxide/Mg Hydroxide 30 ml 09/16/24 21:38 Mag Hydrox/Al Hydrox/Simeth 30 Ml Udc PO Q6H PRN PRN Gastric Burning Albuterol Sulfate 2.5 mg 09/16/24 21:38 Albuterol 2.5 Mg/3 Ml Vial.Neb. INHALATION Q2H PRN PRN Dyspnea, wheezing Amlodipine Besylate 10 mg 09/17/24 10:00 09/17/24 10:02 Amlodipine 10 Mg Tablet PO Not Given DAILY [facility] Protocol Atorvastatin Calcium 10 mg 09/16/24 22:00 09/16/24 22:49 Atorvastatin Calcium 10 Mg Tablet PO 10 mg QHS [facility] Administration Calamine/Phenol 1 applic 09/16/24 22:00 09/17/24 09:59 Menthol/Lanolin/Calamine/Znox 113 Gm Tube TOPICAL Not Given 4X/DAY [facility] Protocol Carvedilol 3.125 mg 09/17/24 08:00 09/17/24 07:52 Carvedilol 3.125 Mg Tablet PO Not Given BIDCM [facility] Protocol Guaifenesin 20 ml 09/16/24 21:38 Guaifenesin 10 Ml Udc (200mg/10ml) PO Q4H PRN PRN COUGH Hydralazine HCl 10 mg 09/16/24 21:38 Hydralazine 20 Mg/Ml Vial IV Q4H PRN PRN SBP > 160 Protocol Hydrochlorothiazide 50 mg 09/17/24 10:00 09/17/24 10:01 Hydrochlorothiazide 25 Mg Tablet PO Not Given DAILY [facility] Protocol Sodium Chloride 250 mls @ 15 mls/hr 09/16/24 21:24 IV .[id number] PRN Saline Flush Sodium Chloride 250 mls @ 15 mls/hr 09/16/24 21:24 IV .[id number] PRN Additional IVPB Infusion Lactated Ringer's 1,000 mls @ 15 mls/hr 09/17/24 13:00 09/17/24 13:10 IV 15 mls/hr .Q48H [facility] Administration Lisinopril 40 mg 09/17/24 10:00 09/17/24 10:02 Lisinopril 40 Mg Tablet PO Not Given DAILY [facility] Protocol Meloxicam 15 mg 09/17/24 10:00 09/17/24 08:24 Meloxicam 15 Mg Tablet PO Not Given DAILY [facility] Morphine Sulfate 2 - 4 mg 09/16/24 21:38 09/17/24 09:53 Morphine 4 Mg/Ml Syringe IV 4 mg Q2H PRN PRN Administration MODSEVPAIN Nutritional Formula (Lactose Free) 120 ml 09/16/24 22:00 09/17/24 08:23 Ensure Plus High Protein 120 Ml Liquid PO Not Given 4X/DAY [facility] Ondansetron HCl 4 mg 09/16/24 21:38 09/17/24 09:53 Ondansetron 4 Mg/2 Ml Vial IV 4 mg Q8H PRN PRN Administration NAUSEA/VOMITING Oxycodone HCl 5 - 10 mg 09/16/24 21:38 09/16/24 23:35 Oxycodone 5 Mg Tablet PO 5 mg Q4H PRN PRN Administration Pain Score 4-10 Pantoprazole Sodium 40 mg 09/17/24 10:00 09/17/24 08:25 Pantoprazole Sodium 40 Mg Tablet PO Not Given DAILY [facility] Paroxetine HCl 20 mg 09/17/24 10:00 09/17/24 08:24 Paroxetine 20 Mg Tablet PO Not Given DAILY [facility] Polyethylene Glycol 17 gm 09/17/24 10:00 09/17/24 08:24 Polyethylene Glycol 3350 17 Gm Packet PO Not Given DAILY [facility] Senna/Docusate Sodium 2 tablet 09/16/24 22:00 09/17/24 08:25 Senna/Docusate Sodium 1 Tablet PO Not Given BID [facility] Sodium Chloride 10 - 40 ml 09/16/24 21:24 09/16/24 22:39 0.9% Saline Lock 10 Ml Syringe IV 10 ml UD PRN Administration SALINE FLUSH Trazodone HCl 100 mg 09/16/24 22:00 09/16/24 22:49 Trazodone 100 Mg Tablet PO 100 mg QHS [facility] Administration [facility] Medical History History of endometriosis CKD (chronic kidney disease), stage II Anxiety and depression Osteoarthritis GERD (gastroesophageal reflux disease) Diverticulitis High cholesterol Hypertension Home Medications ?Medication ?Instructions ?Recorded ?Last Taken ?Type amlodipine 10 mg tablet 10 mg PO DAILY BP 10/30/16 09/16/24 History hydrochlorothiazide 25 mg tablet 50 mg PO DAILY BP 10/30/16 09/16/24 History lisinopril 20 mg tablet 40 mg PO DAILY BP 10/30/16 09/16/24 History meloxicam 15 mg tablet 15 mg PO DAILY knee, neck, and 10/30/16 09/16/24 History shoulder pain paroxetine HCl 20 mg tablet 20 mg PO DAILY depression 10/30/16 09/16/24 History simvastatin 20 mg tablet 20 mg PO DAILY cholesterol 10/30/16 09/15/24 History trazodone 50 mg tablet 100 mg PO QHS sleep 10/30/16 09/15/24 History Vitamin E (Dl,Tocopheryl Acet) 400 unit PO DAILY supplement 12/05/19 09/16/24 History [Vitamin E] ascorbic acid (vitamin C) 500 mg 500 mg PO DAILY@0800 supplement 12/05/19 09/16/24 History tablet beta carotene 10,000 unit capsule 10,000 unit PO DAILY suppleme 12/05/19 09/16/24 History cholecalciferol (vitamin D3) 50 50 mcg PO DAILY supplement 12/05/19 09/16/24 History mcg (2,000 unit) capsule omeprazole 40 mg capsule,delayed 40 mg PO DAILY GERD 12/05/19 09/14/24 History release carvedilol 3.125 mg tablet 3.125 mg PO DAILY BP 09/16/24 09/16/24 History Allergy/AdvReac Type Severity Reaction Status Date / Time No Known Allergies Allergy Verified 09/17/24 12:59 Family History Father Esophageal cancer Mother CAD (coronary artery disease) Heart disease Hypertension Cancer Surgical History Status post total left knee replacement S/P appendectomy H/O: hysterectomy Social History household members: spouse Smoking Status: Never smoker alcohol intake: current alcohol intake frequency: holidays/special occasions only substance use type: does not use Review of Systems (Anesthesia) ROS Narrative System reviewed and no additional complaints, except as documented.
--- NOTE | 2024-09-17 13:31 | RAD_ITS ---
PROCEDURE: HIP MIN 2 VIEWS (PORTABLE) 09/17/2024 REASON FOR EXAM: ORIF LT HIP TECHNIQUE: HIP MIN 2 VIEWS (PORTABLE) FINDINGS: Intraoperative fluoroscopy for internal fixation of the left femoral intertrochanteric fracture was performed. Fluoroscopy time of 172.8 seconds. 28.18 mGy. See procedure report for full details. RAD/Hip Min 2 Views (Portable) IMPRESSION: As above. Reading Location: [id number]
--- NOTE | 2024-09-17 14:51 | PCM.OPRPT ---
Operative Report (Standard) Operative Information Date of Procedure: 09/17/24 Pre-Operative Diagnosis: Left hip displaced intertrochanteric fracture Post-Operative Diagnosis: Same Surgery/Procedure Performed: Left hip open reduction internal fixation, short intramedullary Pinson gamma nail mortgage loan coordinator: Yes Information Technology Assistant: Mykel Mayen Tasks completed by field administrative assistant: Closing and Implanting device Additional commercial lines account assistant?: No Type of Anesthesia: General/Regional RN Documented Start/Stop Times: Operation Date: 09/17/24 13:30 Case Time Into Pre-Op 09/17/24 12:32 Anesthesia Start 09/17/24 13:34 Into Room 09/17/24 13:34 Procedure Start 09/17/24 14:02 Procedure End 09/17/24 14:50 Procedure Start Time: 14:02 Procedure Stop Time: 14:50 Select all DRAINS/GRAFTS/IMPLANTS that apply: Prosthetic device Prosthetic device details: deena gamma nail Estimated Blood Loss: 50 Fluids Replaced: 600 Specimen collected: No Description of surgery: Preoperative diagnosis: Left hip displaced intertrochanteric fracture Postoperative diagnosis: Same Title of operation: Left hip open reduction internal fixation, intramedullary nail fixation, locked Surgeon: Dr. Jose Maria [place] Repairer Helper Hand: Jose Mayen Anesthesia: General Medications: Ancef 2 g IV preoperative Indications for surgery: Patient is an 79-year-old female sustained a hip fracture yesterday. Patient and their family explained diagnosis and treatment options. Patient evaluated by the medical services. Patient did wish to have surgery. Appropriate informed consent obtained and signed. Findings: Patient had a displaced unstable intertrochanteric hip fracture. They underwent standard reduction, internal fixation using a Pinson short gamma 4 nail. X-rays taken throughout. lead assistant manager, physician commercial lines account assistant, was utilized throughout the entire procedure. They were vital to the procedure from beginning to end. They help with patient transfer, patient padding and positioning, fracture reduction, maintenance of fracture reduction, internal fixation of implants, wound closure, bandage application, patient transfer. Without rn neurosurgical, surgical time would have been significantly increased and surgical outcome could have been less optimal. Procedure: Patient was taken to the operating room. Placed under a general anesthetic and transferred to the operating table with the help of the commercial lines account assistant. With the help of the commercial lines account assistant patient was prepped and padded for surgery. Operative side foot was well-padded and placed in the traction boot. Uninjured lower extremity was abducted and flexed out of harms way. EDUIN hose and SCDs utilized. Fluoroscopy was brought in. With the help of the commercial lines account assistant and manipulation of the limb, reduction was nicely obtained as verified under AP lateral and oblique fluoroscopic images. . Operative hip/thigh was prepped padded draped in usual orthopedic sterile fashion for the procedure. Longitudinal incision was made just proximal to the greater trochanter. Taken through skin and subcutaneous tissue. Sharp awl was placed on the tip of the greater trochanter. Position verified under AP and lateral fluoroscopic images. This was then taken down inside the bone. Slightly bent ball-tipped guide adrian was then placed from the tip of the greater trochanter into the intra-medullary canal of the femur. Its position verified radiographically. Reamer was then done over the tip of this with the help of the commercial lines account assistant holding the soft tissue protector appropriately. Once reaming was done we placed the 125? angle device, 11 mm short nail over the guidepin. This was easily introduced. Guide adrian removed. Outrigger device was utilized to position a guidepin from the lateral cortex of the femur across the fracture site and into the femoral head in a good position centrally, as noted on AP lateral and oblique fluoroscopic images. This was measured. Appropriate reaming done. Appreciate length lag screw was placed from the lateral cortex of the femur into the femoral head. A small amount of the screw was noted to be protruding laterally as planned. No cartilage penetration of the femoral head noted on any x-ray. Fracture was then compressed with the outrigger device. Proximal cap screw was placed by the commercial lines account assistant seated down completely, confirmed, and then loosened one fourth turn. We then used the outrigger device to place distal cross locking screw under standard technique. This was confirmed to be of adequate length in good position on AP and lateral images. Outrigger device removed. Final set of AP and lateral proximal x-rays taken and saved. Incisions thoroughly irrigated. Closing by the commercial lines account assistant with deep 0 Vicryl, mid layer 0 Vicryl, inverted 2-0 Vicryl, skin betzy. Puncture wounds closed with inverted 2-0 Vicryl and betzy. Mepilex silver bandage applied. Patient was awoken from their anesthetic, transferred back to their own bed with the help of the commercial lines account assistant and into recovery room in satisfactory condition. Patient will continue to be admitted to the hospital under the hospitalist service. This note was generated with StrongView dictation software. It may contain incorrect words, spelling, and punctuation that were not noted in checking the note before signing. Surgical Findings: hip fracture Complications Complications: No Admit VTE Documentation VTE Present on Admission: No VTE Mechan Device Prophylaxis: SCD's and Knee High EDUIN Hose VTE Pharm Prophylaxis ordered?: Yes
--- NOTE | 2024-09-17 15:00 | RAD_ITS ---
PROCEDURE: HIP MIN 2 VIEWS (PORTABLE) 09/17/2024 REASON FOR EXAM: POST OP TECHNIQUE: HIP MIN 2 VIEWS (PORTABLE) COMPARISON: None. FINDINGS: Left femoral internal fixation spanning a intertrochanteric fracture. There is a fracture fragment of the lesser trochanter. There is adjacent soft tissue swelling and air which can be expected postsurgically. RAD/Hip Min 2 Views (Portable) IMPRESSION: Status post left hip arthroplasty. Reading Location: [id number]
--- NOTE | 2024-09-17 15:03 | PCM.POST.ANE ---
Anesthesia: Postop Eval I Current Vital Signs Temperature: 97.6 F Pulse Rate: 87 Blood Pressure: 132/75 Respiratory Rate: 20 Pulse Ox: 95 Oxygen Delivery Method: Nasal Cannula Oxygen Flow Rate (L/min): 4 Assessment Airway patent: Yes Spontaneous unlabored respirations: Yes Mental status: Awake and Calm nausea: No Vomiting: No Anesthesia Complication: No Fluid Hydration Crystalloid volume administer (ml): 600 Total IV fluid infused: 600 Progress Note Anesthesia document: Postop Eval 1 completed: Yes
--- NOTE | 2024-09-17 15:33 | PCM.PROGNOTE ---
Subjective Subjective Patient seen and examined. She was hard of hearing. She was seen with her nurse by her bedside. She complained of pain in her left hip. She is due for surgery today. Review of systems is otherwise negative. She has remained hemodynamically stable. Objective Data Objective Data Vital Signs: Vital Signs Temp Pulse Resp BP Pulse Ox O2 Del Method O2 Flow Rate 97.6 F L 78 16 121/83 H 99 Nasal Cannula 4 09/17/24 15:04 09/17/24 15:15 09/17/24 15:15 09/17/24 15:15 09/17/24 15:15 09/17/24 15:15 09/17/24 15:15 Oxygen Flow Rate (L/min) 4 Oxygen Delivery Method Nasal Cannula Weight: 144 lb 9.972 oz Body Mass Index (BMI) 26.4 Intake & Output: Intake and Output for Last 24 Hours 09/15/24 09/16/24 09/17/24 23:59 23:59 23:59 Intake Total 1595 / 1595 Output Total 650 / 650 Balance 945 / 945 Lab / Micro Data 09/17/24 04:45 09/17/24 04:45 Labs: Laboratory Results - last 24 hr 09/16/24 18:00: WBC 7.6, RBC 4.23, Hgb 12.3, Hct 36.2 L, MCV 85.6, MCH 29.1, MCHC 34.0, RDW Std Deviation 40.2, RDW Coeff of Natalie 13.0, Plt Count 252, MPV 9.7, Immature Gran % (Auto) 0.300, Neut % (Auto) 63.7, Lymph % (Auto) 25.0, [place] % (Auto) 6.7, Eos % (Auto) 4.0, Baso % (Auto) 0.3, Absolute Neuts (auto) 4.8, Absolute Lymphs (auto) 1.89, Nucleated RBC % 0, Sodium 138, Potassium 3.5, Chloride 98, Carbon Dioxide 29.1, Anion Gap 11, BUN 28 H, Creatinine 0.83, Estim Creat Clear Calc 51.45, Est GFR (MDRD) Non-Af 72, BUN/Creatinine Ratio 33.1 H, Glucose 158 H, Calcium 9.6, Magnesium 1.9 09/17/24 04:45: WBC 8.1, RBC 3.28 L, Hgb 9.6 L, Hct 28.6 L, MCV 87.2, MCH 29.3, MCHC 33.6, RDW Std Deviation 41.9, RDW Coeff of Natalie 13.1, Plt Count 220, MPV 9.7, Immature Gran % (Auto) 0.200, Neut % (Auto) 75.3 H, Lymph % (Auto) 14.5 L, [place] % (Auto) 8.0, Eos % (Auto) 1.6, Baso % (Auto) 0.4, Absolute Neuts (auto) 6.1, Absolute Lymphs (auto) 1.18, Nucleated RBC % 0, Sodium 140, Potassium 3.8, Chloride 101, Carbon Dioxide 31.2, Anion Gap 8, BUN 28 H, Creatinine 0.77, Estim Creat Clear Calc 50.68, Est GFR (MDRD) Non-Af 78, BUN/Creatinine Ratio 36.5 H, Glucose 119 H, Hemoglobin A1c 5.9 H, Calcium 8.9, Total Bilirubin 0.50, AST 22, ALT 9, Alkaline Phosphatase 63, Total Protein 5.4 L, Albumin 3.5, Globulin 1.9 L, Albumin/Globulin Ratio 1.8, Blood Type A POSITIVE, Antibody Screen NEGATIVE Radiography Diagnostic Testing: Radiology Impression Cervical Spine CT 09/16/24 17:56 IMPRESSION: 1. No acute intracranial or cervical spine traumatic findings. 2. Moderate brain parenchymal volume loss and chronic microangiopathic changes. 3. Moderate multilevel cervical spondylotic changes. Reading Location: [facility] Brain CT 09/16/24 18:18 IMPRESSION: 1. No acute intracranial or cervical spine traumatic findings. 2. Moderate brain parenchymal volume loss and chronic microangiopathic changes. 3. Moderate multilevel cervical spondylotic changes. Reading Location: [facility] Chest X-Ray 09/16/24 18:22 IMPRESSION: Subtle hazy opacity over the right lung may be artifactual, though layering pleural effusion or infection could also appear similar. Reading Location: [id number] Hip/Pelvis X-Ray 09/16/24 18:22 IMPRESSION: Comminuted fracture of the left proximal femur with moderate angulation and involvement of both the lesser and greater trochanter. Recommend Orthopedic Surgery consultation. Reading Location: [id number] Knee X-Ray 09/16/24 20:20 IMPRESSION: No acute injury Reading Location: [place] [id number] Physical Exam Const alert, oriented x3 and no apparent distress General Appearance: cooperative HEENT normocephalic, head/scalp atraumatic, moist oral mucous membranes and oropharynx normal Eyes PERRL Neck no lymphadenopathy and supple Lymph Lymphatic: no lymphedema noted Resp normal respiratory effort, normal air movement and clear to auscultation bilaterally Cardio regular rate, regular rhythm, S1 normal heart sound, S2 normal heart sound and no murmurs GI normal to inspection, nondistended, normoactive bowel sounds, soft to palpation, non-tender and non-distended Extremity normal capillary refill, no clubbing, cyanosis or edema and no calf tenderness General Extremity: no tenderness to palpation of joints or extremities Skin General Skin Exam: no breakdown Neuro CN's II-XII intact bilaterally, no focal motor deficits, no sensory deficits noted and deep tendon reflexes 2+ bilaterally Motor Exam: strength 5/5 throughout and general weakness Psych thought process normal and cooperative Appearance: appropriate Assessment & Plan Assessment/Plan (1) Fall: (2) Closed intertrochanteric fracture of left hip: QUALIFIERS: Encounter type: initial encounter Fracture alignment: displaced Qualified Code(s): S72.142A - Displaced intertrochanteric fracture of left femur, initial encounter for closed fracture PLAN: Plan #Debility and weakness due to left hip closed intertrochanteric fracture after mechanical fall fell whilst not using her walker, and was found to have a left intertrochanteric hip fracture. Imaging showed left proximal femoral fracture with moderate angulation involvement of the lesser and greater trochanter. She had left hip ORIF and insertion of short intramedullary deena gamma nail. PT/OT on board PO tylenol, oxycodone and IV morphine prn for pain. fall precautions. ORthopedic surgery on board #Hypertension: on amlodipine, HCTZ and lisinopril as well as carvedilol #Hyperlipidemia: on statin #Depression: on trazodone DVT prophylaxis: as per orthopedic recommendation, will start on PO aspirin 81mg daily. Disposition: will benefit from placement. Charges/Coding Visit Charges Inpatient E&M: 66387 Subs Hosp L2
[2024-09-17] MEDS: Cefazolin 1 GM/50 ML BAG IV ×2 (16:04→23:03)
[2024-09-17] MEDS: Senna/Docusate Sodium 1 Tablet 2 TABLET PO (22:59)
[2024-09-17] MEDS: 0.9% Saline Lock 10 ML Syringe IV (23:02)
[2024-09-18 03:16] VITALS: BMI 26.7
[2024-09-18 03:46] VITALS: BP 125/63; PULSE 69; RESP 18; TEMP 36.8; O2SAT 98
[2024-09-18 04:19] LABS: Hematocrit 24.1 % (37-47); Hemoglobin 7.9 g/dL (12.0-15.0); Immature Granulocytes Count 0.050 X10^3/uL (0.0-0.0); Mean Corp Hgb Conc 32.8 g/dL (32-36); Mean Corpuscular Volume 87.6 fL (81-99); Mean Platelet Vol. 9.9 fl (6.2-12.0); NRBC Flagged by Analyzer 0 % (0-5); Platelet Count 194 K/mm3 (150-450); RBC Distribution Width CV 13.2 % (11.6-14.6); RBC Distribution Width SD 42.1 fl (35.1-43.9); Red Blood Count 2.75 M/mm3 (4.2-5.4); White Blood Count 9.6 K/mm3 (4.4-11.0)
[2024-09-18 05:04] LABS: Anion Gap 10 (5-15); BUN 32 mg/dL (4-19); BUN/Creat Ratio 37.6 RATIO (10-20); Calcium,Total 8.5 mg/dL (7.6-11.0); Carbon Dioxide 28.1 mmol/L (21.0-32.0); Chloride 98 mmol/L (98-108); Estimated Creatinine Clearance 48.54 ml/min (50-250); Glucose 129 mg/dL (70-99); Potassium 4.1 mmol/L (3.3-5.1)
[2024-09-18 06:21] VITALS: BP 120/65; PULSE 59; RESP 16; TEMP 36.9; O2SAT 96
[2024-09-18 07:37] VITALS: O2SAT 95
[2024-09-18 08:38] VITALS: BP 114/60; PULSE 62; RESP 16; TEMP 37.4; O2SAT 97
[2024-09-18] MEDS: Aspirin E.C. 81 MG Tablet PO ×2 (08:43→18:36)
[2024-09-18] MEDS: Polyethylene Glycol 3350 17 GM PACKET PO (08:44)
[2024-09-18] MEDS: Senna/Docusate Sodium 1 Tablet 2 TABLET PO (08:46)
[2024-09-18] MEDS: Ensure Plus High Protein 120 ML LIQUID PO ×3 (08:51→18:36)
[2024-09-18] MEDS: Ensure Surgery 237 ML LIQUID PO ×3 (08:51→18:37)
--- NOTE | 2024-09-18 11:11 | PCM.PROGNOTE ---
Subjective Subjective Patient seen and examined. She was working with PT/OT. Her pain is well controlled, especially when she is not moving. Review of systems is otherwise negative. Objective Data Objective Data Vital Signs: Vital Signs Temp Pulse Resp BP Pulse Ox O2 Del Method O2 Flow Rate 99.3 F H 62 16 114/60 97 Nasal Cannula 2 09/18/24 08:38 09/18/24 08:38 09/18/24 08:38 09/18/24 08:38 09/18/24 08:38 09/18/24 09:17 09/18/24 09:17 Oxygen Flow Rate (L/min) 2 Oxygen Delivery Method Nasal Cannula Weight: 146 lb 6.191 oz Body Mass Index (BMI) 26.7 Intake & Output: Intake and Output for Last 24 Hours 09/16/24 09/17/24 09/18/24 23:59 23:59 23:59 Intake Total 2024.75 / 2074.75 350 / 350 Output Total 1200 / 1200 400 / 400 Balance 824.75 / 874.75 -50 / -50 Lab / Micro Data 09/18/24 04:00 09/18/24 04:00 Labs: Laboratory Results - last 24 hr 09/18/24 04:00: WBC 9.6, RBC 2.75 L, Hgb 7.9 L, Hct 24.1 L, MCV 87.6, MCH 28.7, MCHC 32.8, RDW Std Deviation 42.1, RDW Coeff of Natalie 13.2, Plt Count 194, MPV 9.9, Immature Gran % (Auto) 0.500, Neut % (Auto) 83.8 H, Lymph % (Auto) 8.3 L, [place] % (Auto) 7.2, Eos % (Auto) 0.1, Baso % (Auto) 0.1, Absolute Neuts (auto) 8.1 H, Absolute Lymphs (auto) 0.80 L, Nucleated RBC % 0, Sodium 136, Potassium 4.1, Chloride 98, Carbon Dioxide 28.1, Anion Gap 10, BUN 32 H, Creatinine 0.84, Estim Creat Clear Calc 48.54 L, Est GFR (MDRD) Non-Af 71, BUN/Creatinine Ratio 37.6 H, Glucose 129 H, Calcium 8.5 Radiography Diagnostic Testing: Radiology Impression Hip X-Ray 09/17/24 13:31 IMPRESSION: As above. Reading Location: [facility] Hip X-Ray 09/17/24 15:00 IMPRESSION: Status post left hip arthroplasty. Reading Location: [facility] Physical Exam Const alert, oriented x3 and no apparent distress General Appearance: cooperative HEENT normocephalic, head/scalp atraumatic, moist oral mucous membranes and oropharynx normal Eyes PERRL and EOMs intact bilaterally Neck no lymphadenopathy and supple Lymph Lymphatic: no lymphedema noted Resp normal respiratory effort, normal air movement and clear to auscultation bilaterally Cardio regular rate, regular rhythm, S1 normal heart sound, S2 normal heart sound and no murmurs GI normal to inspection, nondistended, normoactive bowel sounds, soft to palpation, non-tender and non-distended Extremity normal capillary refill, no clubbing, cyanosis or edema and no calf tenderness Extremity Narrative: intact dressing over left hip at site of surgery Skin General Skin Exam: no breakdown Neuro CN's II-XII intact bilaterally, no focal motor deficits, no sensory deficits noted and deep tendon reflexes 2+ bilaterally Motor Exam: general weakness Psych thought process normal and cooperative Appearance: appropriate Assessment & Plan Assessment/Plan (1) Fall: (2) Closed intertrochanteric fracture of left hip: QUALIFIERS: Encounter type: initial encounter Fracture alignment: displaced Qualified Code(s): S72.142A - Displaced intertrochanteric fracture of left femur, initial encounter for closed fracture PLAN: Plan #Debility and weakness due to left hip closed intertrochanteric fracture after mechanical fall fell whilst not using her walker, and was found to have a left intertrochanteric hip fracture. Imaging showed left proximal femoral fracture with moderate angulation involvement of the lesser and greater trochanter. She had left hip ORIF and insertion of short intramedullary deena gamma nail. Today is POD 1. PT/OT on board PO tylenol, oxycodone and IV morphine prn for pain. fall precautions. ORthopedic surgery on board #Hypertension: on amlodipine, HCTZ and lisinopril as well as carvedilol #Anemia Hb is down to 7.9, down from 9.6 yesterday. Likely due to acute blood loss from surgery will monitor closely, and transfuse if Hb <7. #Hyperlipidemia: on statin #Depression: on trazodone DVT prophylaxis: as per orthopedic recommendation, on aspirin 81mg daily Disposition: will benefit from placement. Charges/Coding Visit Charges Inpatient E&M: 19301 Subs Hosp L2
--- NOTE | 2024-09-18 11:31 | PN.ORTHO_ITS ---
Subjective Subjective Patient is postoperative day #1 from left hip open reduction internal fixation with short intramedullary nail. She is lying in bed comfortably. She is speaking easily in full sentences. She denies chest pain or shortness of breath. Denies calf pain. She states her hip feels much better than before surgery. She states she was up today with therapy. Denies severe knee pain. Objective Data Objective Data Vital Signs: Vital Signs Temp Pulse Resp BP Pulse Ox O2 Del Method O2 Flow Rate 99.3 F H 62 16 114/60 97 Nasal Cannula 2 09/18/24 08:38 09/18/24 08:38 09/18/24 08:38 09/18/24 08:38 09/18/24 08:38 09/18/24 09:17 09/18/24 09:17 Oxygen Flow Rate (L/min) 2 Oxygen Delivery Method Nasal Cannula Weight: 66.4 kg Body Mass Index (BMI) 26.7 Intake & Output: Intake and Output for Last 24 Hours 09/16/24 09/17/24 09/18/24 23:59 23:59 23:59 Intake Total 2024.75 / 2074.75 350 / 350 Output Total 1200 / 1200 400 / 400 Balance 824.75 / 874.75 -50 / -50 Lab / Micro Data Attestation: I reviewed the patient's lab results. 09/18/24 04:00 09/18/24 04:00 Labs: Laboratory Results - last 24 hr 09/18/24 04:00: WBC 9.6, RBC 2.75 L, Hgb 7.9 L, Hct 24.1 L, MCV 87.6, MCH 28.7, MCHC 32.8, RDW Std Deviation 42.1, RDW Coeff of Natalie 13.2, Plt Count 194, MPV 9.9, Immature Gran % (Auto) 0.500, Neut % (Auto) 83.8 H, Lymph % (Auto) 8.3 L, [place] % (Auto) 7.2, Eos % (Auto) 0.1, Baso % (Auto) 0.1, Absolute Neuts (auto) 8.1 H, Absolute Lymphs (auto) 0.80 L, Nucleated RBC % 0, Sodium 136, Potassium 4.1, Chloride 98, Carbon Dioxide 28.1, Anion Gap 10, BUN 32 H, Creatinine 0.84, Estim Creat Clear Calc 48.54 L, Est GFR (MDRD) Non-Af 71, BUN/Creatinine Ratio 37.6 H, Glucose 129 H, Calcium 8.5 Radiography Diagnostic Testing: Radiology Impression Hip X-Ray 09/17/24 13:31 IMPRESSION: As above. Reading Location: [facility] Hip X-Ray 09/17/24 15:00 IMPRESSION: Status post left hip arthroplasty. Reading Location: [facility] Physical Exam Narrative Patient's left hip bandage on clean and dry. No significant bruising or swelling about the left thigh. No warmth or redness. Clinically leg lengths are equal. Well aligned. She had no severe hip pain with flexion and rotation. No severe hip pain with axial loading. EDUIN hose and SCDs are on. No calf pain or swelling bilaterally negative Homans' sign bilaterally. She is able to flex and extend toes and ankles nicely. She is able to do a straight leg raise on the right. Not quite able to do a straight leg raise on the left. Left knee palpated showing small effusion without obvious deformity or palpable deficits. Assessment & Plan Assessment/Plan (1) Closed intertrochanteric fracture of left hip: QUALIFIERS: Encounter type: initial encounter Fracture alignment: displaced Qualified Code(s): S72.142A - Displaced intertrochanteric fracture of left femur, initial encounter for closed fracture PLAN: Her diagnosis and treatment options regarding her left hip fracture discussed with her at length. She can be 50% weightbearing on the left hip. She can do full left hip range of motion. She can remove her bandage from the left hip in 5 days. Replace with Band-Aids if needed then. She can shower over the current bandage. She can shower over her incision in 5 days if there is no active bleeding or oozing. We will plan to continue with aspirin 81 mg twice a day for DVT prevention for 1 month. Plan to see her in the office in 2 weeks for x-rays and evaluation of her left hip. She does have some expected postoperative blood loss anemia. The medical service will follow. Treat if needed. Orthopedic service will sign off. I can be notified if there are any orthopedic concerns.
[2024-09-18 14:00] VITALS: BP 112/60; PULSE 68; RESP 16; TEMP 36.7; O2SAT 98
--- NOTE | 2024-09-18 15:26 | CASEMGMT ---
TESSA CISNEROS NOTE: PT/OT evals reviewed. Pt only able to ambulate 5 ft, mod A x 2. Additional therapy recommended. RN CM to room. Pt resting in bed. Introduced self and role. Discussed therapy and discharge planning. Pt states she did not do well w/therapy and feels she would benefit from going somewhere for therapy before returning home. A list of SNF providers including quality and resource use data and consistent with the patient?s preferred geographic region, medical needs, and insurance network were provided from the [employer] Guide. Pt made aware to choose top 3 preferences and someone would f/u with her on Friday re: choices. She voices understanding. Robert SARGENTN RN CM
[2024-09-18 22:00] VITALS: BP 100/63; PULSE 80; RESP 16; TEMP 36.6; O2SAT 96
[2024-09-19] VITALS (9 sets, daily range): BP systolic 90–103; BP diastolic 47–63; PULSE 69–97; RESP 16–18; TEMP 36.7–37.4; O2SAT 93–98; BMI 26.2
[2024-09-19 06:03] LABS: Hematocrit 23.4 % (37-47); Hemoglobin 7.6 g/dL (12.0-15.0); Immature Granulocytes Count 0.080 X10^3/uL (0.0-0.0); Mean Corp Hgb Conc 32.5 g/dL (32-36); Mean Corpuscular Volume 89.7 fL (81-99); Mean Platelet Vol. 10.5 fl (6.2-12.0); NRBC Flagged by Analyzer 0 % (0-5); Platelet Count 206 K/mm3 (150-450); RBC Distribution Width CV 13.2 % (11.6-14.6); RBC Distribution Width SD 43.6 fl (35.1-43.9); Red Blood Count 2.61 M/mm3 (4.2-5.4); White Blood Count 12.7 K/mm3 (4.4-11.0)
[2024-09-19 06:45] LABS: Anion Gap 11 (5-15); BUN 54 mg/dL (4-19); BUN/Creat Ratio 29.1 RATIO (10-20); Calcium,Total 8.5 mg/dL (7.6-11.0); Carbon Dioxide 26.7 mmol/L (21.0-32.0); Chloride 98 mmol/L (98-108); Estimated Creatinine Clearance 21.81 ml/min (50-250); Glucose 142 mg/dL (70-99); Potassium 4.2 mmol/L (3.3-5.1)
[2024-09-19] MEDS: Ensure Surgery 237 ML LIQUID PO ×3 (09:22→16:13)
[2024-09-19] MEDS: Ensure Plus High Protein 120 ML LIQUID PO ×2 (09:23→14:00)
--- NOTE | 2024-09-19 10:20 | PN_ITS ---
Subjective Subjective Patient seen and examined. She was lying in bed and expressed some discomfort with pain. She says the oxycodone does not work for her. She has no other complaints. Review of systems otherwise negative. Hemoglobin today is down to 7.6. Objective Data Objective Data Vital Signs: Vital Signs Temp Pulse Resp BP Pulse Ox O2 Del Method O2 Flow Rate 98.5 F 71 16 90/47 L 95 Nasal Cannula 2 09/19/24 03:00 09/19/24 03:00 09/19/24 03:00 09/19/24 05:48 09/19/24 07:34 09/19/24 07:34 09/19/24 07:34 Oxygen Flow Rate (L/min) 2 Oxygen Delivery Method Nasal Cannula Weight: 143 lb 1.28 oz Body Mass Index (BMI) 26.2 Intake & Output: Intake and Output for Last 24 Hours 09/17/24 09/18/24 09/19/24 23:59 23:59 23:59 Intake Total 2024.75 / 2074.75 350 / 350 Output Total 1200 / 1200 800 / 1050 350 / 350 Balance 824.75 / 874.75 -450 / -700 -350 / -350 Lab / Micro Data 09/19/24 05:36 09/19/24 05:36 Labs: Laboratory Results - last 24 hr 09/19/24 05:36: WBC 12.7 H, RBC 2.61 L, Hgb 7.6 L, Hct 23.4 L, MCV 89.7, MCH 29.1, MCHC 32.5, RDW Std Deviation 43.6, RDW Coeff of Natalie 13.2, Plt Count 206, MPV 10.5, Immature Gran % (Auto) 0.600, Neut % (Auto) 82.9 H, Lymph % (Auto) 7.9 L, [place] % (Auto) 7.7, Eos % (Auto) 0.7, Baso % (Auto) 0.2, Absolute Neuts (auto) 10.5 H, Absolute Lymphs (auto) 1.00, Nucleated RBC % 0, Sodium 136, Potassium 4.2, Chloride 98, Carbon Dioxide 26.7, Anion Gap 11, BUN 54 H, Creatinine 1.85 H , Estim Creat Clear Calc 21.81 L, Est GFR (MDRD) Non-Af 27 L, BUN/Creatinine Ratio 29.1 H, Glucose 142 H, Calcium 8.5 Physical Exam Const alert, oriented x3 and no apparent distress General Appearance: cooperative HEENT normocephalic, head/scalp atraumatic, moist oral mucous membranes and oropharynx normal Eyes PERRL and EOMs intact bilaterally Neck no lymphadenopathy and supple Resp Resp Narrative: mildly diminished breath sounds bibasally, on 2L of oxygen. No wheezes or crackles. Cardio regular rate, regular rhythm, S1 normal heart sound, S2 normal heart sound and no murmurs GI normal to inspection, nondistended, normoactive bowel sounds, soft to palpation, non-tender and non-distended Extremity normal capillary refill, no clubbing, cyanosis or edema and no calf tenderness Extremity Narrative: intact dressing over left hip at site of surgery General Extremity: no tenderness to palpation of joints or extremities Neuro CN's II-XII intact bilaterally, no focal motor deficits, no sensory deficits noted and deep tendon reflexes 2+ bilaterally Motor Exam: strength 5/5 throughout and general weakness Psych thought process normal and cooperative Appearance: appropriate Assessment & Plan Assessment/Plan (1) Fall: (2) Closed intertrochanteric fracture of left hip: QUALIFIERS: Encounter type: initial encounter Fracture alignment: displaced Qualified Code(s): S72.142A - Displaced intertrochanteric fracture of left femur, initial encounter for closed fracture PLAN: Plan #Debility and weakness due to left hip closed intertrochanteric fracture after mechanical fall * fell whilst not using her walker, and was found to have a left intertrochanteric hip fracture. * Imaging showed left proximal femoral fracture with moderate angulation involvement of the lesser and greater trochanter. * She had left hip ORIF and insertion of short intramedullary deena gamma nail. Today is POD 2 * PT/OT on board * PO tylenol and IV morphine prn for pain. She states the oxycodone is not working for her so switched to [place]. * fall precautions. ORthopedic surgery on board * #Hypertension: on amlodipine, HCTZ and lisinopril as well as carvedilol #EZIO: Creatinine is up to 1.85 today. Was 0.84 yesterday. Will hold lisinopril and hydrate with IV fluids and trend creatinine. #Anemia * Hb is further down to 7.6 from 7.9 yesterday. * Was 9.6 prior to surgery. Likely due to acute blood loss. * Transfuse if hemoglobin is less than 7. Down to 7.9, down from 9.6 yesterday. * #Hyperlipidemia: on statin #Depression: on trazodone DVT prophylaxis: as per orthopedic recommendation, on aspirin 81mg daily Disposition: will benefit from placement. Charges/Coding Visit Charges Inpatient E&M: 03762 Subs Hosp L2
[2024-09-19] MEDS: Aspirin E.C. 81 MG Tablet PO ×2 (10:40→16:13)
[2024-09-19] MEDS: HYDROcodone Bitartrate/Apap 5/325 Tablet PO (10:40)
[2024-09-19] MEDS: 0.9% Normal Saline (1000mL) 1,000 ML 100 ML IV ×2 (11:49→23:03)
[2024-09-19] MEDS: Senna/Docusate Sodium 1 Tablet 2 TABLET PO (23:06)
[2024-09-20] VITALS (15 sets, daily range): BP systolic 112–139; BP diastolic 50–77; PULSE 64–76; RESP 14–17; TEMP 36.4–37.3; O2SAT 92–96; BMI 28.0
[2024-09-20 06:29] LABS: Hematocrit 20.4 % (37-47); Hemoglobin 6.8 g/dL (12.0-15.0); Immature Granulocytes Count 0.040 X10^3/uL (0.0-0.0); Mean Corp Hgb Conc 33.3 g/dL (32-36); Mean Corpuscular Volume 88.3 fL (81-99); Mean Platelet Vol. 10.4 fl (6.2-12.0); NRBC Flagged by Analyzer 0 % (0-5); Platelet Count 192 K/mm3 (150-450); RBC Distribution Width CV 13.4 % (11.6-14.6); RBC Distribution Width SD 43.2 fl (35.1-43.9); Red Blood Count 2.31 M/mm3 (4.2-5.4); White Blood Count 10.4 K/mm3 (4.4-11.0)
--- NOTE | 2024-09-20 06:40 | PCM.HOSP.N ---
Hospitalist Note Hg 6.8. Will transfuse 1 unit PRBC.
[2024-09-20 07:13] LABS: Anion Gap 10 (5-15); BUN 45 mg/dL (4-19); BUN/Creat Ratio 47.0 RATIO (10-20); Calcium,Total 8.6 mg/dL (7.6-11.0); Carbon Dioxide 25.8 mmol/L (21.0-32.0); Chloride 104 mmol/L (98-108); Estimated Creatinine Clearance 43.37 ml/min (50-250); Glucose 106 mg/dL (70-99); Potassium 4.0 mmol/L (3.3-5.1)
[2024-09-20] MEDS: Polyethylene Glycol 3350 17 GM PACKET PO (09:00)
[2024-09-20] MEDS: Aspirin E.C. 81 MG Tablet PO ×2 (09:01→18:08)
[2024-09-20] MEDS: Senna/Docusate Sodium 1 Tablet 2 TABLET PO ×2 (09:01→20:14)
[2024-09-20] MEDS: Ensure Surgery 237 ML LIQUID PO ×3 (09:02→18:09)
--- NOTE | 2024-09-20 09:14 | CASEMGMT ---
Addendum entered by Angely Knox 09/20/24 16:00: TESSA CISNEROS asked pt if she wanted this RN AMELIA to reach out to any family members regarding acceptance at [facility], she states that she would like her notified. TC to pt , left vm requesting return call. Addendum entered by Angely Knox 09/20/24 13:42: Pt updated that pt has been accepted for care at [facility]. Addendum entered by Angely Knox 09/20/24 13:30: Received notification that TCU has accepted pt for care. Original Note: RN CM into pt room, pt sitting up in bed finishing breakfast with nurse in room. Pt states she has chosen 1. [facility] 2. [facility] as her SNF choices. Referral made to [facility] at this time.
--- NOTE | 2024-09-20 09:49 | PN_ITS ---
Subjective Subjective Patient seen and examined. She complained of generally feeling weak. Her Hb is down to 6.8 today. Objective Data Objective Data Vital Signs: Vital Signs Temp Pulse Resp BP Pulse Ox O2 Del Method O2 Flow Rate 98.2 F 73 17 123/63 H 93 Nasal Cannula 2 09/20/24 05:05 09/20/24 05:05 09/20/24 05:05 09/20/24 05:05 09/20/24 05:05 09/20/24 05:05 09/20/24 08:00 Oxygen Flow Rate (L/min) 2 Oxygen Delivery Method Nasal Cannula Weight: 153 lb Body Mass Index (BMI) 28.0 Intake & Output: Intake and Output for Last 24 Hours 09/18/24 09/19/24 09/20/24 23:59 23:59 23:59 Intake Total 350 / 350 1000 / 1000 1200 / 1200 Output Total 800 / 1050 450 / 850 1100 / 1100 Balance -450 / -700 550 / 150 100 / 100 Lab / Micro Data 09/20/24 05:55 09/20/24 05:55 Labs: Laboratory Results - last 24 hr 09/20/24 05:55: WBC 10.4, RBC 2.31 L, Hgb 6.8 L, Hct 20.4 L, MCV 88.3, MCH 29.4, MCHC 33.3, RDW Std Deviation 43.2, RDW Coeff of Natalie 13.4, Plt Count 192, MPV 10.4, Immature Gran % (Auto) 0.400, Neut % (Auto) 73.5 H, Lymph % (Auto) 13.4 L, [place] % (Auto) 8.2, Eos % (Auto) 4.3, Baso % (Auto) 0.2, Absolute Neuts (auto) 7.6, Absolute Lymphs (auto) 1.39, Nucleated RBC % 0, Sodium 140, Potassium 4.0, Chloride 104, Carbon Dioxide 25.8, Anion Gap 10, BUN 45 H, Creatinine 0.96, E stim Creat Clear Calc 43.37 L, Est GFR (MDRD) Non-Af 60, BUN/Creatinine Ratio 47.0 H, Glucose 106 H, Calcium 8.6 09/20/24 07:09: Blood Type Cancelled 09/20/24 07:09: Blood Type A POSITIVE, Antibody Screen Cancelled 09/20/24 07:09: Antibody Screen NEGATIVE, Crossmatch See Detail 09/20/24 07:09: Crossmatch See Detail Physical Exam Const alert, oriented x3 and no apparent distress Constitutional Narrative: frail General Appearance: cooperative and well developed HEENT normocephalic, head/scalp atraumatic, moist oral mucous membranes and oropharynx normal Eyes PERRL and EOMs intact bilaterally Neck no lymphadenopathy and supple Lymph Lymphatic: no lymphedema noted Resp normal respiratory effort, normal air movement and clear to auscultation bilaterally Resp Narrative: mildly diminished breath sounds bibasally, on 2L of oxygen. No wheezes or crackles. Cardio regular rate, regular rhythm, S1 normal heart sound, S2 normal heart sound and no murmurs GI normal to inspection, nondistended, normoactive bowel sounds, soft to palpation, non-tender and non-distended Extremity normal capillary refill, no clubbing, cyanosis or edema and no calf tenderness General Extremity: no tenderness to palpation of joints or extremities Skin General Skin Exam: no breakdown Neuro CN's II-XII intact bilaterally, no focal motor deficits, no sensory deficits noted and deep tendon reflexes 2+ bilaterally Motor Exam: strength 5/5 throughout and general weakness Psych thought process normal and cooperative Appearance: appropriate Assessment & Plan Assessment/Plan (1) Fall: (2) Closed intertrochanteric fracture of left hip: QUALIFIERS: Encounter type: initial encounter Fracture alignment: displaced Qualified Code(s): S72.142A - Displaced intertrochanteric fracture of left femur, initial encounter for closed fracture PLAN: Plan #Debility and weakness due to left hip closed intertrochanteric fracture after mechanical fall * fell whilst not using her walker, and was found to have a left intertrochanteric hip fracture. * Imaging showed left proximal femoral fracture with moderate angulation involvement of the lesser and greater trochanter. * She had left hip ORIF and insertion of short intramedullary deena gamma nail. Today is POD 2 * PT/OT on board * PO tylenol and IV morphine prn for pain. She states the oxycodone is not working for her so switched to [place]. * fall precautions. ORthopedic surgery on board * #Hypertension: on amlodipine, HCTZ and lisinopril as well as carvedilol #EZIO: Cr is down to 0.96. #Anemia * Hb is further down to 6.8 from 7.6 yesterday. * Was 9.6 prior to surgery. Likely due to acute blood loss. * will transfuse with 2 units of PRBCs. * * #Hyperlipidemia: on statin #Depression: on trazodone DVT prophylaxis: as per orthopedic recommendation, on aspirin 81mg bid x 30 days Disposition: will benefit from placement. Charges/Coding Visit Charges Inpatient E&M: 70285 Subs Hosp L2
[2024-09-20 20:51] LABS: Hematocrit 27.0 % (37-47); Hemoglobin 9.1 g/dL (12.0-15.0)
[2024-09-21 04:35] VITALS: BMI 28.3
[2024-09-21 04:40] VITALS: BP 143/68; PULSE 67; RESP 17; TEMP 36.7; O2SAT 94
[2024-09-21 05:54] LABS: Hematocrit 27.4 % (37-47); Hemoglobin 9.3 g/dL (12.0-15.0); Immature Granulocytes Count 0.040 X10^3/uL (0.0-0.0); Mean Corp Hgb Conc 33.9 g/dL (32-36); Mean Corpuscular Volume 87.3 fL (81-99); Mean Platelet Vol. 9.8 fl (6.2-12.0); NRBC Flagged by Analyzer 0 % (0-5); Platelet Count 207 K/mm3 (150-450); RBC Distribution Width CV 13.5 % (11.6-14.6); RBC Distribution Width SD 42.7 fl (35.1-43.9); Red Blood Count 3.14 M/mm3 (4.2-5.4); White Blood Count 9.5 K/mm3 (4.4-11.0)
[2024-09-21 06:12] LABS: Anion Gap 8 (5-15); BUN 25 mg/dL (4-19); BUN/Creat Ratio 42.2 RATIO (10-20); Calcium,Total 8.6 mg/dL (7.6-11.0); Carbon Dioxide 29.5 mmol/L (21.0-32.0); Chloride 102 mmol/L (98-108); Estimated Creatinine Clearance 52.23 ml/min (50-250); Glucose 105 mg/dL (70-99); Potassium 4.1 mmol/L (3.3-5.1)
[2024-09-21] MEDS: Ensure Surgery 237 ML LIQUID PO (07:52)
[2024-09-21] MEDS: Aspirin E.C. 81 MG Tablet PO (07:52)
[2024-09-21] MEDS: Senna/Docusate Sodium 1 Tablet 2 TABLET PO (07:53)
[2024-09-21] MEDS: Polyethylene Glycol 3350 17 GM PACKET PO (07:53)
[2024-09-21 08:01] VITALS: BP 158/77; PULSE 64; RESP 18; TEMP 36.6; O2SAT 95
[2024-09-21 09:42] VITALS: O2SAT 95
--- NOTE | 2024-09-21 12:10 | TREXTCAR_ITS ---
Diet Diet Order/Speech Therapy: INPATIENT Hospital Diet / Speech Therapy Order(s) 09/17/24 16:41 Diet: Regular - General Routine Orders/Code Status Enema Type: [place] Enema Frequency: Daily PRN Suppository Frequency: Daily PRN DC O2, CPAP, BIPAP needs Home O2 Discharge instructions: No Wound(s) LEFT HIP: Wound Type: Surgical Incision Therapies Weight Bearing: Weight bearing as tolerated Physical Therapy: Eval and Treat Occupational Therapy: Eval and Treat Problem/Diagnosis (1) Fall: Status: Acute Code(s): W19.XXXA - Unspecified fall, initial encounter (2) Closed intertrochanteric fracture of left hip: Status: Acute Code(s): S72.142A - Displaced intertrochanteric fracture of left femur, initial encounter for closed fracture Plan #Debility and weakness due to left hip closed intertrochanteric fracture after mechanical fall * fell whilst not using her walker, and was found to have a left intertrochanteric hip fracture. * Imaging showed left proximal femoral fracture with moderate angulation involvement of the lesser and greater trochanter. * She had left hip ORIF and insertion of short intramedullary deena gamma nail. Today is POD 2 * PT/OT on board * PO tylenol and IV morphine prn for pain. She states the oxycodone is not working for her so switched to [place]. * fall precautions. ORthopedic surgery on board * #Hypertension: on amlodipine, HCTZ and lisinopril as well as carvedilol #EZIO: Cr is down to 0.96. #Anemia * Hb is further down to 6.8 from 7.6 yesterday. * Was 9.6 prior to surgery. Likely due to acute blood loss. * will transfuse with 2 units of PRBCs. * * #Hyperlipidemia: on statin #Depression: on trazodone DVT prophylaxis: as per orthopedic recommendation, on aspirin 81mg bid x 30 days Disposition: will benefit from placement. Allergies/Procedures Done in Hospital Allergies No Known Allergies Allergy (Verified 09/17/24 12:59) Type of Care/Length of Stay Estimated LOS: Convalescent Care Less Than 30 days Type of Care Needed: Skilled Rehab Potential: Fair Prognosis: Fair Additional Orders/Day of Discharge Day of Discharge: 09/21/24 Dietary and Speech Recommendations Dietitian Recommendations/Changes: Change to Cardiac diet d/t pmhx Continue to monitor for changes in pt nutritional status and make additional rec as indicated. Discharge Plan Admission Admit Date/Time: 09/16/24 20:04 Primary Reason for Your Visit: left hip frcture due to mechanical fall Attending Provider: Bee Shepard Primary Care Provider: Oniel Treviño,Out of Consulting Providers: Natali Barnes; Jose Maria Best Instructions Patient Instructions: Hip Fx Surg Dc Discharge Orders/Prescriptions Prescriptions: New hydrocodone-acetaminophen 5-325 mg Tablet 1 tab PO Q6H PRN PRN (Reason: Pain Score 6-10) 3 Days Qty: 12 0RF aspirin 81 mg Tablet,Delayed Release (Dr/Ec) 81 mg PO BIDCM Qty: 60 0RF Continued trazodone 50 MG tablet 100 mg PO QHS Patient Comments: meloxicam 15 MG tablet 15 mg PO DAILY Patient Comments: lisinopril 20 MG tablet 40 mg PO DAILY Patient Comments: amlodipine 10 MG tablet 10 mg PO DAILY Patient Comments: paroxetine HCl 20 MG tablet 20 mg PO DAILY Patient Comments: simvastatin 20 MG tablet 20 mg PO DAILY Patient Comments: hydrochlorothiazide 25 MG tablet 50 mg PO DAILY Patient Comments: omeprazole 40 MG capsule,delayed release(DR/EC) 40 mg PO DAILY ascorbic acid (vitamin C) 500 MG tablet 500 mg PO DAILY@0800 beta carotene 10,000 UNIT capsule 10,000 unit PO DAILY cholecalciferol (vitamin D3) 50 MCG capsule 50 mcg PO DAILY Vitamin E (Dl,Tocopheryl Acet) [Vitamin E] 400 UNIT capsule 400 unit PO DAILY carvedilol 3.125 mg tablet 3.125 mg PO DAILY Referrals / Follow Up: Saima Hernandez MD [Non-Staff] - Within 1 Week Jose Maria Best MD [Med Staff - Active Staff] - Within 2 Weeks Oniel Treviño,Out of [Primary Care Provider] - Disposition Disposition (needs filled in before D/C Order can be placed): [facility] Facility (2) Closed intertrochanteric fracture of left hip Qualifiers: Encounter type: initial encounter Fracture alignment: displaced Qualified Code(s): S72.142A - Displaced intertrochanteric fracture of left femur, initial encounter for closed fracture
--- NOTE | 2024-09-21 12:11 | PCM.DC.SUM ---
Providers Date of Admission: 09/16/24 Date of Discharge: 09/21/24 Primary Care Physician: Out of Town Doctor Consultations 09/16/24 21:38 Consult: Orthopedics Routine Consulting Provider: Jose Maria Best Reason for Consult: Fall, L hip fx EMERGENT Consult: No MD Notified: Yes Date Notified: 09/16/24 Time Notified: 20:05 Method of Notification: ED Physician Initiated Reason For Visit: FALL, L HIP FRACTURE Diagnosis Discharge Diagnosis (1) Fall: Status: Acute Code(s): W19.XXXA - Unspecified fall, initial encounter (2) Closed intertrochanteric fracture of left hip: Status: Acute Code(s): S72.142A - Displaced intertrochanteric fracture of left femur, initial encounter for closed fracture Qualifiers: Encounter type: initial encounter Fracture alignment: displaced Qualified Code(s): S72.142A - Displaced intertrochanteric fracture of left femur, initial encounter for closed fracture Plan #Debility and weakness due to left hip closed intertrochanteric fracture after mechanical fall fell whilst not using her walker, and was found to have a left intertrochanteric hip fracture. Imaging showed left proximal femoral fracture with moderate angulation involvement of the lesser and greater trochanter. She had left hip ORIF and insertion of short intramedullary deena gamma nail. Today is POD 2 PT/OT on board PO tylenol and IV morphine prn for pain. She states the oxycodone is not working for her so switched to [place]. fall precautions. ORthopedic surgery on board #Hypertension: on amlodipine, HCTZ and lisinopril as well as carvedilol #EZIO: Cr is down to 0.96. #Anemia Hb is further down to 6.8 from 7.6 yesterday. Was 9.6 prior to surgery. Likely due to acute blood loss. will transfuse with 2 units of PRBCs. #Hyperlipidemia: on statin #Depression: on trazodone DVT prophylaxis: as per orthopedic recommendation, on aspirin 81mg bid x 30 days Disposition: will benefit from placement. Medications at Discharge Home Medications amlodipine 10 mg tablet 10 mg PO DAILY BP 10/30/16 hydrochlorothiazide 25 mg tablet 50 mg PO DAILY BP 10/30/16 lisinopril 20 mg tablet 40 mg PO DAILY BP 10/30/16 meloxicam 15 mg tablet 15 mg PO DAILY knee, neck, and shoulder pain 10/30/16 paroxetine HCl 20 mg tablet 20 mg PO DAILY depression 10/30/16 simvastatin 20 mg tablet 20 mg PO DAILY cholesterol 10/30/16 trazodone 50 mg tablet 100 mg PO QHS sleep 10/30/16 Vitamin E (Dl,Tocopheryl Acet) [Vitamin E] 400 unit PO DAILY supplement 12/05/19 ascorbic acid (vitamin C) 500 mg tablet 500 mg PO DAILY@0800 supplement 12/05/19 beta carotene 10,000 unit capsule 10,000 unit PO DAILY suppleme 12/05/19 cholecalciferol (vitamin D3) 50 mcg (2,000 unit) capsule 50 mcg PO DAILY supplement 12/05/19 omeprazole 40 mg capsule,delayed release 40 mg PO DAILY GERD 12/05/19 carvedilol 3.125 mg tablet 3.125 mg PO DAILY BP 09/16/24 aspirin 81 mg tablet,delayed release 81 mg PO BID [employer] [facility] #60 tabs 09/21/24 hydrocodone-acetaminophen 5-325mg 5mg-325mg 1 tab PO Q6H PRN PRN Pain Score 6-10 3 days #12 tabs 09/21/24 Hospital Course Operations - (left hip PRIF) Procedures None Summary of Care Provided Minutes Spent on Discharge: 43 Hospital Course: Patient is a 79-year-old male with past medical history as outlined was admitted to the ED on 09/16/2024 with complaint of mechanical fall whilst in her kitchen. She was not using her walker as she was close at that time and fell. She landed on her left hip and had severe pain and debility so she could not get up and ambulate on her own. She called the EMS and she was brought in here. CT of the brain showed no acute intracranial pathology. Cervical spine CT showed no acute fracture or any acute findings. Pelvic and hip x-ray showed comminuted fracture of the left proximal femur with moderate angulation involvement of both the lesser and greater trochanter an EKG showed no acute ST changes. She was admitted and managed for debility due to left hip fracture after mechanical fall. Orthopedic surgery was consulted. Patient had left hip open reduction and internal fixation with insertion of short intramedullary gamma nail on 09/17/2024. Postop course was complicated by acute anemia due to acute blood loss with a hemoglobin going as low as 6.8. She was therefore transfused with 2 units of packed red blood cells. Her hemoglobin came up to 9.3. She was discharged to the longterm facility on 09/21/2024. She was placed on p.o. aspirin 81 mg twice daily for DVT prophylaxis for 30 days. She is to follow-up with her primary care doctor and with orthopedic surgery within 2 to 4 weeks. She was given a prescription for p.o. Evele[place] 1 tablet every 6 hours as needed for total of 12 tablets for 3 days. OARRS score was checked and no red flags were seen.' Patient seen and examined prior to discharge. She felt well and had no complaints. She had an uneventful night. Review of systems otherwise negative. Labs and vitals reviewed. Home medication reviewed and reconciled. Physical Exam Const alert, oriented x3 and no apparent distress Constitutional Narrative: frail General Appearance: cooperative, comfortable and well developed HEENT normocephalic, head/scalp atraumatic, moist oral mucous membranes and oropharynx normal Mouth: oral and palatal mucosa normal Eyes PERRL and EOMs intact bilaterally Neck no lymphadenopathy and supple Lymph Lymphatic: no lymphedema noted Resp normal respiratory effort, normal air movement and clear to auscultation bilaterally Resp Narrative: on room air. Cardio regular rate, regular rhythm, S1 normal heart sound, S2 normal heart sound and no murmurs GI normal to inspection, nondistended, normoactive bowel sounds, soft to palpation, non-tender and non-distended Extremity normal capillary refill, no clubbing, cyanosis or edema and no calf tenderness Extremity Narrative: intact dressing over left hip at site of surgery General Extremity: no tenderness to palpation of joints or extremities Skin General Skin Exam: no breakdown Neuro oriented x3, CN's II-XII intact bilaterally, moves all extremities, no focal motor deficits, no sensory deficits noted and deep tendon reflexes 2+ bilaterally Sensorium / Orientation: awake Motor Exam: general weakness Psych thought process normal and cooperative Appearance: appropriate Weight / BMI Weight Weight: 154 lb 1.65 oz Body Mass Index (BMI) 28.3 ABG / Lab / Microbiology Data 09/21/24 05:31 09/21/24 05:31 Laboratory: Laboratory Results - last 24 hr 09/20/24 07:09: Crossmatch See Detail 09/20/24 20:44: Hgb 9.1 L, Hct 27.0 L 09/21/24 05:31: WBC 9.5, RBC 3.14 L, Hgb 9.3 L, Hct 27.4 L, MCV 87.3, MCH 29.6, MCHC 33.9, RDW Std Deviation 42.7, RDW Coeff of Natalie 13.5, Plt Count 207, MPV 9.8, Immature Gran % (Auto) 0.400, Neut % (Auto) 70.2 H, Lymph % (Auto) 14.6 L, Crawford % (Auto) 9.0, Eos % (Auto) 5.5 H, Baso % (Auto) 0.3, Absolute Neuts (auto) 6.7, Absolute Lymphs (auto) 1.38, Nucleated RBC % 0, Sodium 139, Potassium 4.1, Chloride 102, Carbon Dioxide 29.5, Anion Gap 8, BUN 25 H, Creatinine 0.60 L, Estim Creat Clear Calc 52.23, Est GFR (MDRD) Non-Af 91, BUN/Creatinine Ratio 42.2 H, Glucose 105 H, Calcium 8.6 D/C Instructions Discharge Activity: Use Walker DC O2, CPAP, BIPAP Needs Home O2 Discharge instructions: No DC home with Oxygen: No Meaningful Use Info Meaningful Use Meaningful Use Diagnoses (Choose all that apply): None applicable Discharge Plan Admission Admit Date/Time: 09/16/24 20:04 Primary Reason for Your Visit: left hip frcture due to mechanical fall Attending Provider: Bee Shepard Primary Care Provider: [facility] ,Out of Consulting Providers: Natali Barnes; Jose Maria Best Instructions Patient Instructions: Hip Fx Surg Dc Discharge Orders/Prescriptions Prescriptions: New hydrocodone-acetaminophen 5-325 mg Tablet 1 tab PO Q6H PRN PRN (Reason: Pain Score 6-10) 3 Days Qty: 12 0RF aspirin 81 mg Tablet,Delayed Release (Dr/Ec) 81 mg PO BIDCM Qty: 60 0RF Continued trazodone 50 MG tablet 100 mg PO QHS Patient Comments: meloxicam 15 MG tablet 15 mg PO DAILY Patient Comments: lisinopril 20 MG tablet 40 mg PO DAILY Patient Comments: amlodipine 10 MG tablet 10 mg PO DAILY Patient Comments: paroxetine HCl 20 MG tablet 20 mg PO DAILY Patient Comments: simvastatin 20 MG tablet 20 mg PO DAILY Patient Comments: hydrochlorothiazide 25 MG tablet 50 mg PO DAILY Patient Comments: omeprazole 40 MG capsule,delayed release(DR/EC) 40 mg PO DAILY ascorbic acid (vitamin C) 500 MG tablet 500 mg PO DAILY@0800 beta carotene 10,000 UNIT capsule 10,000 unit PO DAILY cholecalciferol (vitamin D3) 50 MCG capsule 50 mcg PO DAILY Vitamin E (Dl,Tocopheryl Acet) [Vitamin E] 400 UNIT capsule 400 unit PO DAILY carvedilol 3.125 mg tablet 3.125 mg PO DAILY Referrals / Follow Up: Saima Hernandez MD [Non-Staff] - Within 1 Week Jose Maria Best MD [Med Staff - Active Staff] - Within 2 Weeks [facility] Doctor,Out of [Primary Care Provider] - Disposition Disposition (needs filled in before D/C Order can be placed): [facility] Facility Charges/Coding Visit Charges Inpatient E&M: 43497 Disch Hosp >30min
--- NOTE | 2024-09-21 12:46 | CASEMGMT ---
Addendum entered by Angely Knox 09/21/24 14:45: Nurse aware report can be called to TCU. Addendum entered by Angely Knox 09/21/24 14:34: Faxed trf to extended care and signed med list to [facility] TCU at this time. Addendum entered by Angely Knox 09/21/24 12:57: Received returned call from pt , he is aware pt will dc to TCU today. He denies any questions. Original Note: Pt is medically ready for dc this date. Precert has been obtained from insurance. TESSA CISNEROS into pt room, pt is aware that she will be transferred to [facility] TCU this date. She asks for TESSA CISNEROS to notify her . She is aware that RN AMELIA attempted to reach him yesterday but was unsuccessful. TC to pt , left requesting returned call.
--- NOTE | 2024-09-21 13:10 | PHA.DC.MR.R ---
Pharmacy [facility] Med Reconciliation Pharmacy Service has performed discharge medication reconciliation for this patient. The patient's discharge medication list was reviewed for discrepancies and discrepancies were resolved. Medications at Discharge Home Medications amlodipine 10 mg tablet 10 mg PO DAILY BP 10/30/16 hydrochlorothiazide 25 mg tablet 50 mg PO DAILY BP 10/30/16 lisinopril 20 mg tablet 40 mg PO DAILY BP 10/30/16 meloxicam 15 mg tablet 15 mg PO DAILY knee, neck, and shoulder pain 10/30/16 paroxetine HCl 20 mg tablet 20 mg PO DAILY depression 10/30/16 simvastatin 20 mg tablet 20 mg PO DAILY cholesterol 10/30/16 trazodone 50 mg tablet 100 mg PO QHS sleep 10/30/16 Vitamin E (Dl,Tocopheryl Acet) [Vitamin E] 400 unit PO DAILY supplement 12/05/19 ascorbic acid (vitamin C) 500 mg tablet 500 mg PO DAILY@0800 supplement 12/05/19 beta carotene 10,000 unit capsule 10,000 unit PO DAILY suppleme 12/05/19 cholecalciferol (vitamin D3) 50 mcg (2,000 unit) capsule 50 mcg PO DAILY supplement 12/05/19 omeprazole 40 mg capsule,delayed release 40 mg PO DAILY GERD 12/05/19 carvedilol 3.125 mg tablet 3.125 mg PO DAILY BP 09/16/24 aspirin 81 mg tablet,delayed release 81 mg PO BIDCM #60 tabs 09/21/24 hydrocodone-acetaminophen 5-325mg 5mg-325mg 1 tab PO Q6H PRN PRN Pain Score 6-10 3 days #12 tabs 09/21/24
[2024-09-21 14:06] VITALS: BP 133/76; PULSE 73; RESP 16; TEMP 36.6; O2SAT 96
--- NOTE | 2024-09-21 14:47 | NURSING ---
Report called to [facility] at [facility] Pt going to room 20.
== END 2024-09-21 15:03 | DRG 481 ==
LOC: ED 20:14 → MS3 20:19
PROVIDERS: Orthopaedic Surgery; Admitting Provider Family Medicine; Emergency Provider Emergency Medicine; Referring Provider Emergency Medicine; Visit Provider Student in an Organized Health Care Education/Training Program
PROC: 0QS706Z Reposition Left Upper Femur with Intramedullary Internal Fixation Device, Open Approach (ICD-10-PCS; CPT 27245; principal; 2024-09-17 13:00)
DX: S72.142A Displaced intertrochanteric fracture of left femur, initial encounter for closed fracture (principal); N17.9 Acute kidney failure, unspecified; D62 Acute posthemorrhagic anemia; I12.9 Hypertensive chronic kidney disease with stage 1 through stage 4 chronic kidney disease, or unspecified chronic kidney disease; F32.A Depression, unspecified; K21.9 Gastro-esophageal reflux disease without esophagitis; W19.XXXA Unspecified fall, initial encounter; E78.5 Hyperlipidemia, unspecified; N18.2 Chronic kidney disease, stage 2 (mild); Z79.899 Other long term (current) drug therapy; R53.81 Other malaise; Z90.710 Acquired absence of both cervix and uterus; Z82.49 Family history of ischemic heart disease and other diseases of the circulatory system; H91.90 Unspecified hearing loss, unspecified ear
CPT/HCPCS: 36415; 70450; 71045; 72125; 73502; 73560; 76000; 80048; 80053; 83036; 83735; 85014; 85018; 85025; 86850; 86900; 86901; 93005; 94668; 97161; 97166; 97530; 97535; 97802; 99285; C1713; P9016; A4216; J2405

== ENCOUNTER 2024-09-21 15:09 | Inpatient (IN) | payer MEDICARE, SELFPAY ==
[2024-09-21 15:31] VITALS: BP 149/75; PULSE 62; PULSE 71; RESP 18; TEMP 36.8; O2SAT 92; O2SAT 95; BMI 27.4
[2024-09-21 16:25] VITALS: O2SAT 92
[2024-09-21] MEDS: Aspirin E.C. 81 MG Tablet PO (17:37)
--- NOTE | 2024-09-21 20:23 | HP.PCM_ITS ---
HPI - General General Date of Admission: 09/21/24 Date of Service: 09/21/24 Chief Complaint: Here for rehabilitation. HPI Narrative MIKEL CHATMAN, is a 79 Female who presents with followin09/16/2024 [facility] ED fall. Walking across kitchen without walker, left knee buckled, fell, hit back of head, no loss of consciousness. Unable to stand 2/2 left hip pain. X-ray showed left hip fracture, Chest X-ray negative. 09/16/2024 Admit [facility]. Prepare for surgery for left hip fracture. 09/17/2024 Dr. Jose Maria Best performed left hip ORIF, short intramedullary gamma nail. 09/17/2024 PT/OT for Debility. Tylenol, Oxycodone, Morphine IV for pain. Aspirin 81mg twice daily dvt prophylaxis. 09/18/2024 Working with PT/OT. Hemoglobin 9.6 to 7.9, transfuse if hemoglobin less than 7.0. 09/19/2024 Pain, oxycodone does not work, change to [place]. Hemoglobin 7.6. Creatinine 1.85, Hold Lisinopril, give iv fluids, trend creatinine. 09/20/2024 Hemoglobin 6.8, transfuse 2 units PRBC. Feels weak. Aspirin 81mg bid x 30 days dvt prophylaxis. 09/21/2024 Admit to TCU with debility, here for rehabilitation, strengthening, prior to discharge home with . [facility] Medical History (Updated 09/21/24 @ 20:[address] Davion Villa MD) History of endometriosis CKD (chronic kidney disease), stage II Anxiety and depression Osteoarthritis GERD (gastroesophageal reflux disease) Diverticulitis High cholesterol Hypertension Home Medications ?Medication ?Instructions ?Recorded ?Last Taken ?Type amlodipine 10 mg tablet 10 mg PO DAILY BP 10/30/16 0 09/16/24 History hydrochlorothiazide 25 mg tablet 50 mg PO DAILY BP 08/1009/16/24 History lisinopril 20 mg tablet 40 mg PO DAILY BP 10/30/16 0 09/16/24 History meloxicam 15 mg tablet 15 mg PO DAILY knee, neck, a nd 10/30/16 09/16/24 History shoulder pain paroxetine HCl 20 mg tablet 20 mg PO DAILY depression 10/30/16 09/16/24 History simvastatin 20 mg tablet 20 mg PO DAILY cholesterol 0 10/30/16 09/15/24 History trazodone 50 mg tablet 100 mg PO QHS sleep 10/30/16 09/15/24 History Vitamin E (Dl,Tocopheryl Acet) 400 unit PO DAILY suppl ement 12/05/19 09/16/24 History [Vitamin E] ascorbic acid (vitamin C) 500 mg 500 mg PO DAILY@0800 supplement 12/05/19 09/16/24 History tablet beta carotene 10,000 unit capsule 10,000 unit PO DAILY suppleme 12/05/19 09/16/24 History cholecalciferol (vitamin D3) 50 50 mcg PO DAILY supple ment 12/05/19 09/16/24 History mcg (2,000 unit) capsule omeprazole 40 mg capsule,delayed 40 mg PO DAILY GERD 1 09/14/24 History release carvedilol 3.125 mg tablet 3.125 mg PO DAILY BP 09/16/24 History aspirin 81 mg tablet,delayed 81 mg PO BIDCM [facility] #60 09/21/24 Unknown Rx release tabs hydrocodone-acetaminophen 5-325mg 1 tab PO Q6H PRN PRN Pain Score 09/21/24 Unknown Rx 5mg-325mg 6-10 3 days #12 tabs Allergy/AdvReac Type Severity Reaction Status Date / Time No Known Allergies Allergy Verified 09/17/24 12:59 Family History Father Esophageal cancer Mother CAD (coronary artery disease) Heart disease Hypertension Cancer Surgical History (Updated 09/21/24 @ 20:[address] Davion Villa MD) History of open reduction and internal fixation (ORIF) procedure Status post total left knee replacement S/P appendectomy H/O: hysterectomy Social History household members: spouse Smoking Status: Never smoker alcohol intake: current alcohol intake frequency: holidays/special occasions only substance use type: does not use ROS Constitutional Constitutional: Reports weakness; Denies chills, fever(s) or weight gain ENT HEENT: Denies headache(s), nasal congestion or nasal discharge Cardiovascular Cardiovascular: Denies chest pain or palpitations Respiratory/Chest Respiratory/Chest: Denies cough, excessive phlegm production or shortness of breath with exertion Gastrointestinal Gastrointestinal: Denies abdominal pain, nausea or vomiting Genitourinary Genitourinary: Denies dysuria Musculoskeletal Musculoskeletal: Denies joint pain or joint swelling Integumentary Integumentary: Denies rash or wounds Neurologic Neurologic: Denies focal weakness, numbness or tingling Psychiatric Psychiatric: Denies anxiety, auditory hallucinations, depression, homicidal ideation or suicidal ideation Vital Signs Vital Signs Vital Signs: 09/21/24 15:31 09/21/24 15:31 09/21/24 16:25 Temperature 98.2 F Temperature Source Temporal Pulse Rate 71 62 Pulse Rhythm Irregular Pulse Strength Normal (2+) Respiratory Rate 18 18 Respiratory Effort Normal Non-Labored Respiratory Depth Normal Respiratory Pattern Normal Blood Pressure 149/75 H Blood Pressure Mean 99 Blood Pressure Source Monitor Blood Pressure Position Semi-Fowlers Blood Pressure Location Right Arm Pulse Ox 95 92 92 Oxygen Delivery Method Room Air Room Air Room Air Weight Weight: 68.039 kg Body Mass Index (BMI) 27.4 Physical Exam Const alert General Appearance: cooperative HEENT normocephalic Eyes PERRL and EOMs intact bilaterally Neck supple, no JVD and no carotid bruits Resp normal respiratory effort, normal air movement and clear to auscultation bilaterally Cardio regular rate and regular rhythm GI normal to inspection, nondistended, normoactive bowel sounds, non-tender and non-distended Extremity normal capillary refill General Extremity: Negative for edema Skin no rashes or lesions noted General Skin Exam: no breakdown Psych affect normal Appearance: appropriate Assessment & Plan Assessment/Plan (1) Debility: (2) Closed intertrochanteric fracture of left hip: QUALIFIERS: Encounter type: initial encounter Fracture alignment: displaced Qualified Code(s): S72.142A - Displaced intertrochanteric fracture of left femur, initial encounter for closed fracture (3) Postoperative anemia: (4) Acute kidney injury: (5) Essential (primary) hypertension: (6) Osteoarthritis: (7) Depression: (8) HLD (hyperlipidemia): (9) Insomnia: (10) Vitamin D deficiency: (11) GERD (gastroesophageal reflux disease): PLAN: Plan 79 year old female with below past medical history hospitalized for left hip fracture, underwent left hip orif, short intramedullary gamm nail 09/17/[address] Jose Maria Best, postoperative course complicated by acute kidney injury, anemia requiring transfusion, admitted to TCU with debility, here for rehabilitation, strengthening, prior to discharge home with . * Debility - PT/OT. * Pain - [place] 5/325mg 1 tablet q6 prn pain (6-10). * Bowel - senna/colace 2 tablets bid, Magnesium citrate 300mL daily prn. * Adult immunization - Administer pneumonia vaccine, covid vaccine, flu vaccine as appropriate. * DVT prophylaxis - Aspirin 81mg bid thru 10/18/2024. * Hypertension - Coreg 3.125mg daily, Lisinopril 40mg daily, HCTZ 50mg daily, Amlodipine 10mg daily. * Vitamin C deficiency - Vitamin C 500mg daily. * Hyperlipidemia - Atorvastatin 10mg qhs. * Vitamin D deficiency - D3 50mcg daily. * Osteoarthritis - Meloxicam 15mg daily. * Skin irritation - Calmoseptine topical bid. * GERD - Pantoprazole 40mg daily. * Fatty Liver - Vitamin E 400iu daily. The following psychotropic medication was present on admission: Paroxetine 20mg daily. Psychotropic medication therapy is indicated for a diagnosis of: Depression. Based on my clinical evaluation, continuation of the medication is necessary at this time. Gradual dose reduction plan (select one): ____ GDR will be attempted. Will monitor patient symptoms and behaviors in response to GDR. __x__ GRD contraindicated. Reason contraindicated: stable chronic [place] [facility] use. The following psychotropic medication was present on admission: Trazodone 100mg qhs. Psychotropic medication therapy is indicated for a diagnosis of: Insomnia. Based on my clinical evaluation, continuation of the medication is necessary at this time. Gradual dose reduction plan (select one): ____ GDR will be attempted. Will monitor patient symptoms and behaviors in response to GDR. __x_ GRD contraindicated. Reason contraindicated: stable chronic local [employer] use.
[2024-09-21] MEDS: Senna/Docusate Sodium 1 Tablet 2 TABLET PO (23:37)
--- NOTE | 2024-09-22 01:44 | PHA.CONS_ITS ---
Documented by User: Rafita Vazquez 09/22/24 02:09 TCU RX Drug Regimen Review Subjective/Objective Subjective/Objective Subjective: TCU admission note. 79 year old female with below past medical history hospitalized for left hip fracture, underwent left hip orif, short intramedullary gamm nail 09/17/[address] Jose Maria Best, postoperative course complicated by acute kidney injury, anemia requiring transfusion, admitted to TCU with debility, here for rehabilitation, strengthening, prior to discharge home with . Objective: Allergies No Known Allergies Allergy (Verified 09/17/24 12:59) Current Medications Generic Name Dose Route Start Last Admin Trade Name Freq PRN Reason Stop Dose Admin Hydrocodone Bitart/Acetaminophen 1 tablet 09/21/24 15:24 Hydrocodone Bitartrate/Apap 5/325 Tablet PO Q6H PRN PRN Pain Score 6-10 Amlodipine Besylate 10 mg 09/22/24 10:00 Amlodipine 10 Mg Tablet PO DAILY REPLACED BY [facility] Protocol Ascorbic Acid 500 mg 09/22/24 08:00 Ascorbic Acid 500 Mg Tablet PO DAILY@0800 REPLACED BY [facility] Aspirin 81 mg 09/21/24 17:00 09/21/24 17:37 Aspirin E.C. 81 Mg Tablet PO 10/18/24 23:59 81 mg BIDCM ALMAZ Administration Atorvastatin Calcium 10 mg 09/21/24 22:00 09/21/24 23:37 Atorvastatin Calcium 10 Mg Tablet PO 10 mg QHS ALMAZ Administration Bisacodyl 10 mg 09/21/24 15:26 Bisacodyl 10 Mg Suppository RC DAILY PRN PRN Constipation Calamine/Phenol 1 applic 09/21/24 22:00 09/21/24 23:36 Menthol/Lanolin/Calamine/Znox 113 Gm Tube TOPICAL 1 applic BID ALMAZ Administration Protocol Carvedilol 3.125 mg 09/22/24 10:00 Carvedilol 3.125 Mg Tablet PO DAILY REPLACED BY [facility] Cholecalciferol 50 mcg 09/22/24 10:00 Cholecalciferol (Vit D3) 25 Mcg Tablet (1,000 Units) PO DAILY REPLACED BY [facility] Hydrochlorothiazide 50 mg 09/22/24 10:00 Hydrochlorothiazide 25 Mg Tablet PO DAILY REPLACED BY [facility] Protocol Lisinopril 40 mg 09/22/24 10:00 Lisinopril 40 Mg Tablet PO DAILY REPLACED BY [facility] Protocol Magnesium Citrate 300 ml 09/21/24 15:26 Magnesium Citrate 300 Ml PO X1 PRN Constipation Meloxicam 15 mg 09/22/24 10:00 Meloxicam 15 Mg Tablet PO DAILY REPLACED BY [facility] Pantoprazole Sodium 40 mg 09/22/24 10:00 Pantoprazole Sodium 40 Mg Tablet PO DAILY REPLACED BY [facility] Paroxetine HCl 20 mg 09/22/24 10:00 Paroxetine 20 Mg Tablet PO DAILY REPLACED BY [facility] Polyethylene Glycol 17 gm 09/22/24 10:00 Polyethylene Glycol 3350 17 Gm Packet PO DAILY REPLACED BY [facility] Senna/Docusate Sodium 2 tablet 09/21/24 22:00 09/21/24 23:37 Senna/Docusate Sodium 1 Tablet PO 2 tablet BID ALMAZ Administration Sodium Chloride 10 - 40 ml 09/21/24 15:31 0.9% Saline Lock 10 Ml Syringe IV UD PRN SALINE FLUSH Trazodone HCl 100 mg 09/21/24 22:00 09/21/24 22:13 Trazodone 100 Mg Tablet PO 100 mg QHS ALMAZ Administration Tuberculin PPD 0.1 ml 09/29/24 10:00 Tuberculin,Purif.Prot.Deriv. 50 Tu/Ml Vial ID 09/29/24 10:01 X1 ONE Tuberculin PPD 0.1 ml 09/22/24 10:00 Tuberculin,Purif.Prot.Deriv. 50 Tu/Ml Vial ID 09/22/24 10:01 X1 ONE Vitamin E 400 units 09/22/24 10:00 Vitamin E 400 Units Capsule PO DAILY REPLACED BY [facility] Problem List Vitamin D deficiency (Acute) Insomnia (Acute) Depression (Acute) Osteoarthritis (Acute) Essential (primary) hypertension (Acute) Acute kidney injury (Acute) Postoperative anemia (Acute) Debility (Acute) Closed intertrochanteric fracture of left hip (Acute) GERD (gastroesophageal reflux disease) (Chronic) HLD (hyperlipidemia) (Chronic) Vital Signs Temp Pulse Resp BP Pulse Ox O2 Del Method 98.2 F 62 18 149/75 H 92 Room Air 09/21/24 15:31 09/21/24 15:09/21/24 15:09/21/24 15:09/21/24 16:25 09/21/24 16:25 Oxygen Delivery Method Room Air Weight: 68.039 kg Body Mass Index (BMI) 27.4 Assessment/Plan: 1. Pain: hydrocodone/acetaminophen 5/325 mg 1 tablet PO Q6H PRN pain. The patient has not required any PRN doses of hydrocodone/acetaminophen so far this admission. Please continue to monitor pain levels, PRN medication usage, for constipation, syncope/ataxia/falls, dizziness/drowsiness, and for respiratory depression. 2. Bowel: senna/docusate 2 tablets PO BID, magnesium citrate 300 mL PO daily PRN constipation, bisacodyl 10 mg rectally daily PRN constipation, polyethylene glycol 17 grams PO daily. The patient has not required any PRN doses of magnesium citrate or bisacodyl so far this admission, and the patient's last bowel movement was documented as 09/21/24. Please continue to monitor for bowel movements, PRN medication usage, constipation and diarrhea. 3. DVT prophylaxis: aspirin 81 mg PO BID through 10/18/24. Please continue to monitor for s/s of a DVT such as pain/erythema/swelling in an extremity, for s/s of bleeding/excessive bruising, for GI distress with aspirin administration, hemoglobin levels (Hgb = 9.3 g/dL on 09/21/24), and platelet counts (Plt = 207 K/mm3 on 09/21/24). 4. Hypertension: amlodipine 10 mg PO daily, carvedilol 3.125 mg Po BID, hydrochlorothiazide 50 mg PO daily, lisinopril 40 mg PO daily. Please continue to monitor blood pressures (recent range = 866-639-46-77 mmHg), heart rates (re cent range = 62-71 beats/min), for lower extremity edema, for fatigue, renal function (serum creatinine = 0.60 mg/dL with creatinine clearance ~ 52 mL/min on 09/21/24), sodium levels (Na = 139 mmol/L on 09/21/24), potassium levels (K = 4.1 mmol/L on 09/21/24), for angioedema, and for dry cough.The patient continues to have elevated blood pressures despite 4 blood pressure medications (most systolics are > 130 mmHg over the last 2 days). If the patient continues to have elevated blood pressures consider adding an additional blood pressure agent such as hydralazine 25 mg PO TID (would avoid increasing carvedilol dose at this time due to most heart rates in the 60 BPM range). 5. Hyperlipidemia: atorvastatin 10 mg PO QHS. Please continue to monitor lipid levels (no recent lipid levels documented), LFTs (AST/ALT = 22/9 U/L on 09/17/24), and for myalgias. The patient does not have a documented lipid panel within 2 years, please consider obtaining an updated lipid panel if clinically indicated. 6. GERD: pantoprazole 40 mg Po daily. Please continue to monitor for s/s of GERD, for diarrhea that could indicate clostridium difficile infection, and for s/s of bone resorption such as fractures. 7. Osteoarthritis: meloxicam 15 mg PO daily. Please continue to monitor for osteoarthritic pain, renal function (serum creatinine = 0.60 mg/dL with creatinine clearance ~ 52 mL/min on 09/21/24), hemoglobin levels (Hgb = 9.3 g/dL on 09/21/24), platelet counts (Plt = 207 K/mm3 on 09/21/24), and for GI distress with meloxicam administration. 8. Vitamin C/Vitamin D deficiency: ascorbic acid 500 mg PO daily, cholecalciferol 50 mcg PO daily. Please continue to monitor for s/s of vitamin D/Vitamin C deficiencies and vitamin D levels (Vitamin D = 67.8 ng/mL on 05/29/22). 9. Fatty liver: vitamin E 400 IU daily. Please continue to monitor for s/s fo fatty liver disease. 10. Skin irritation: calmoseptine 1 application topically BID. Please continue to monitor for skin irritation and skin integrity. Assessment/Plan for indications treated with psychotropic medications: 1. Depression: paroxetine 20 mg PO daily. Please see provider not regarding GDR not recommended, stable chronic long-term therapy. Monitor for diarrhea, nausea, headache, anxiety or drowsiness, suicidal thoughts or behaviors (Boxed Warning), symptoms of bleeding, symptoms of serotonin syndrome (including agitation, confusion, hyperreflexia, rigidity/myoclonus, tremor, tachycardia, tachypnea), sodium levels (last Na = 139 mmol/L on 09/21/24). Monitor for efficacy including resident symptoms, behaviors and indications of distress. Monitor for depression, and SI. Monitor for tolerability including mental status, cognition, excessive sleepiness, withdrawal or decreased participation in activities and decline in physical functioning. Maximize use of nonpharmacologic/behavioral interventions to facilitate dose reduction or discontinuation as appropriate. Please evaluate the appropriateness of GDR unless contraindicated. If appropriate, GDR should be attempted in 2 separate quarters within the first year of use or admission to TCU. If GDR attempted, monitor resident symptoms/behaviors. 2. Insomnia: trazodone 100 mg PO QHS. Monitor for drowsiness, dizziness or confusion, dry mouth, constipation, symptoms of serotonin syndrome (including agitation, confusion, hyperreflexia, rigidity/myoclonus, tremor, tachycardia, tachypnea), suicidal thoughts or behaviors (Boxed Warning). Monitor HR (can cause bradycardia or tachycardia). HR range since admission = 62-73 beats/min Monitor for orthostatic hypotension, including postural dizziness, syncope or falls. Check orthostatic vital signs if suspicion of orthostasis. Monitor for efficacy including resident symptoms, behaviors and indications of distress. Monitor for tolerability including mental status, cognition, excessive sleepiness, withdrawal or decreased participation in activities and decline in physical functioning. Maximize use of nonpharmacologic/behavioral interventions to facilitate dose reduction or discontinuation as appropriate. Please evaluate the appropriateness of GDR unless contraindicated. If appropriate, GDR should be attempted in 2 separate quarters within the first year of use or admission to TCU. If GDR attempted, monitor resident symptoms/behaviors. Medical chart and medication regimen reviewed. The following medication irregularities or issues were identified: 1. Hypertension: amlodipine 10 mg PO daily, carvedilol 3.125 mg Po BID, hydrochlorothiazide 50 mg PO daily, lisinopril 40 mg PO daily. The patient continues to have elevated blood pressures despite 4 blood pressure medications (most systolics are > 130 mmHg over the last 2 days). If the patient continues to have elevated blood pressures consider adding an additional blood pressure agent such as hydralazine 25 mg PO TID (would avoid increasing carvedilol dose at this time due to most heart rates in the 60 BPM range). 2. Hyperlipidemia: atorvastatin 10 mg PO QHS. The patient does not have a documented lipid panel within 2 years, please consider obtaining an updated lipid panel if clinically indicated. Date Date of Note: 09/22/24 Documented by User: Dr. Dvaion Villa MD 09/22/24 07:27 TCU RX Drug Regimen Review Provider Comments Provider responsibility Provider Comments to Recommendations by Pharmacy Agree
[2024-09-22 05:44] LABS: Hematocrit 30.0 % (37-47); Hemoglobin 10.0 g/dL (12.0-15.0); Immature Granulocytes Count 0.040 X10^3/uL (0.0-0.0); Mean Corp Hgb Conc 33.3 g/dL (32-36); Mean Corpuscular Volume 87.5 fL (81-99); Mean Platelet Vol. 9.8 fl (6.2-12.0); NRBC Flagged by Analyzer 0 % (0-5); Platelet Count 237 K/mm3 (150-450); RBC Distribution Width CV 13.5 % (11.6-14.6); RBC Distribution Width SD 42.5 fl (35.1-43.9); Red Blood Count 3.43 M/mm3 (4.2-5.4); White Blood Count 10.2 K/mm3 (4.4-11.0)
[2024-09-22 06:15] LABS: Anion Gap 10 (5-15); BUN 20 mg/dL (4-19); BUN/Creat Ratio 38.2 RATIO (10-20); Calcium,Total 8.8 mg/dL (7.6-11.0); Carbon Dioxide 29.5 mmol/L (21.0-32.0); Chloride 98 mmol/L (98-108); Estimated Creatinine Clearance 51.56 ml/min (50-250); Glucose 112 mg/dL (70-99); Potassium 4.0 mmol/L (3.3-5.1)
[2024-09-22 09:32] VITALS: BP 108/76; PULSE 79; RESP 16; TEMP 36.7; O2SAT 92
[2024-09-22 09:38] VITALS: PULSE 79
[2024-09-22] MEDS: Aspirin E.C. 81 MG Tablet PO ×2 (09:38→16:30)
[2024-09-22] MEDS: Polyethylene Glycol 3350 17 GM PACKET PO (09:39)
[2024-09-22] MEDS: Tuberculin,Purif.prot.deriv. 50 TU/ML Vial 0.1 ML ID (09:40)
[2024-09-22] MEDS: Senna/Docusate Sodium 1 Tablet 2 TABLET PO ×2 (09:40→20:49)
[2024-09-22] MEDS: Cholecalciferol (VIT D3) 25 MCG TABLET (1,000 UNITS) 50 MCG PO (09:40)
--- NOTE | 2024-09-22 09:44 | NURSING ---
Made appt for f/u with Dr. Best for 09/30/24 at 0495. Discussed with resident and via phone. They agree they'd like to set up [place] later today when comes to visit. Appt paper w/ date and time and [place] number given to resident.
[2024-09-22] MEDS: HYDROcodone Bitartrate/Apap 5/325 Tablet PO (10:46)
[2024-09-22] MEDS: 0.9% Saline Lock 10 ML Syringe IV (10:48)
[2024-09-22 10:52] VITALS: PULSE 79; RESP 16; O2SAT 97
--- NOTE | 2024-09-22 12:10 | NURSING ---
Smelter Operator Note; Activity Asset: Kaylynn Villafana is independent in her choice of daily activities. She stated she enjoys scrolling Face Book, reading, playing games on tablet or phone and spending time w/family and christianity. Staff will encourage social activities, remind her of weekly activities and respect her right to say no.
[2024-09-22 14:22] VITALS: BP 119/63; PULSE 64
--- NOTE | 2024-09-22 14:25 | NURSING ---
pt noted to have some difficulty holding utensils at meal time d/t arthritic hands & tremors, pt willing to try built up utensils this evening to see if it helps her. dietary notified.
--- NOTE | 2024-09-22 14:31 | CHAPLAIN ---
Type of Pastoral Visit ___ Initial Visit ___ Follow-up Visit ___ On-call Visit ___ General Patient Visit ___ Spiritual Assessment ___ Family Conference ___ Bereavement ___ Rapid Response ___ Code Blue ___ Other (describe below) Pastoral Care Referral From ___ Patient ___ Family ___ Nurse ___ Physician ___ Plastic Frame Inserter ___ Zmt Operator ___ Other (describe below) Sacrament/Intervention ___ Active listening ___ Anointing ___ Protestant ___ Bereavement ___ Communion ___ Shelbi exploration ___ ___ Life review ___ Prayer ___ Reconciliation ___ Sacrament of Sick ___ Supportive presence ___ Wedding ___ Other (describe below) Pastoral Comments patient is soundly asleep and does not awaken to her name; left a calling card; will try another day
--- NOTE | 2024-09-22 15:22 | CHAPLAIN ---
Type of Pastoral Visit _x__ Initial Visit ___ Follow-up Visit ___ On-call Visit ___ General Patient Visit ___ Spiritual Assessment ___ Family Conference ___ Bereavement ___ Rapid Response ___ Code Blue ___ Other (describe below) Pastoral Care Referral From _x__ Patient ___ Family ___ Nurse ___ Physician ___ Automation Specialist ___ Medical Pathologist ___ Other (describe below) Sacrament/Intervention _x__ Active listening ___ Anointing ___ Sikh ___ Bereavement ___ Communion _x__ Shelbi exploration ___ _x__ Life review _x__ Prayer ___ Reconciliation ___ Sacrament of Sick ___ Supportive presence ___ Wedding ___ Other (describe below) Pastoral Comments patient is welcoming and polite; pt is encouraged that she feels better than she thought she would but is just getting started on therapy; pt admits to feeling tired for doing her therapy for today; pt 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
[2024-09-22 20:50] VITALS: BP 122/64; PULSE 72
[2024-09-23 06:13] VITALS: BP 105/57; PULSE 67
[2024-09-23 06:22] LABS: Cholesterol 119 mg/dL (<=200); Low Density Lipoprotein Calc. 44 mg/dL; Triglycerides 99 mg/dL; Very Low Density Lipoprotein 20 mg/dL (5-40); cholesterol:hdl ratio screen 2.15
[2024-09-23 06:30] VITALS: PULSE 67; RESP 16; O2SAT 94
[2024-09-23] MEDS: 0.9% Saline Lock 10 ML Syringe IV ×2 (09:04→22:20)
[2024-09-23] MEDS: Aspirin E.C. 81 MG Tablet PO ×2 (09:05→17:10)
[2024-09-23] MEDS: Senna/Docusate Sodium 1 Tablet 2 TABLET PO ×2 (09:05→22:22)
[2024-09-23] MEDS: Cholecalciferol (VIT D3) 25 MCG TABLET (1,000 UNITS) 50 MCG PO (09:05)
[2024-09-23] MEDS: Polyethylene Glycol 3350 17 GM PACKET PO (09:06)
[2024-09-23 09:13] VITALS: BP 106/52; PULSE 76; RESP 14; TEMP 36.8; O2SAT 91
[2024-09-23 13:30] VITALS: BP 118/70; PULSE 73
[2024-09-23 22:16] VITALS: BP 104/57; PULSE 60
[2024-09-23 22:23] VITALS: BP 104/57; PULSE 60
[2024-09-24] VITALS (7 sets, daily range): BP systolic 112–123; BP diastolic 56–64; PULSE 60–64; RESP 18; TEMP 36.7; O2SAT 92–95
[2024-09-24] MEDS: HYDROcodone Bitartrate/Apap 5/325 Tablet PO (03:22)
[2024-09-24] MEDS: Cholecalciferol (VIT D3) 25 MCG TABLET (1,000 UNITS) 50 MCG PO (08:16)
[2024-09-24] MEDS: Senna/Docusate Sodium 1 Tablet 2 TABLET PO ×2 (08:16→20:29)
[2024-09-24] MEDS: Aspirin E.C. 81 MG Tablet PO ×2 (08:17→16:51)
[2024-09-24] MEDS: Polyethylene Glycol 3350 17 GM PACKET PO (08:17)
--- NOTE | 2024-09-24 15:23 | CASEMGMT ---
Social Work SW met with patient to complete initial assessment. Introduced self and role. Verified/updated contacts. Confirmed code status as full code. Educated to [facility] insurance with [employer] 09/27 and continued stay is not guaranteed with each review. Pt's goal is to return with at [facility]. SW will continue to follow for DC planning. Winnie Gupta PROCUREMENT ENGINEER ENTRY LEVEL
[2024-09-24] MEDS: MELATONIN 3 MG TABLET PO (20:29)
[2024-09-25] MEDS: HYDROcodone Bitartrate/Apap 5/325 Tablet PO (01:55)
[2024-09-25 05:47] VITALS: BP 120/62; PULSE 60
[2024-09-25 05:48] VITALS: BP 120/62; PULSE 60
[2024-09-25 06:31] VITALS: PULSE 60; O2SAT 93
[2024-09-25 09:28] VITALS: BP 128/51; PULSE 60; RESP 16; TEMP 36.7; O2SAT 92
[2024-09-25] MEDS: Aspirin E.C. 81 MG Tablet PO ×2 (09:43→17:22)
[2024-09-25] MEDS: Senna/Docusate Sodium 1 Tablet 2 TABLET PO ×2 (09:44→22:03)
[2024-09-25] MEDS: Cholecalciferol (VIT D3) 25 MCG TABLET (1,000 UNITS) 50 MCG PO (09:45)
[2024-09-25 17:22] VITALS: PULSE 60
[2024-09-25] MEDS: MELATONIN 3 MG TABLET PO (22:01)
[2024-09-25 22:02] VITALS: BP 134/59; PULSE 59
[2024-09-26 06:14] VITALS: BP 128/57; PULSE 61
[2024-09-26 09:51] VITALS: BP 117/59; PULSE 65; RESP 16; TEMP 36.8; O2SAT 97
[2024-09-26] MEDS: Aspirin E.C. 81 MG Tablet PO ×2 (09:55→16:39)
[2024-09-26] MEDS: Senna/Docusate Sodium 1 Tablet 2 TABLET PO ×2 (09:56→21:58)
[2024-09-26] MEDS: Cholecalciferol (VIT D3) 25 MCG TABLET (1,000 UNITS) 50 MCG PO (09:57)
[2024-09-26 14:29] VITALS: PULSE 65
[2024-09-26 21:56] VITALS: BP 118/50; PULSE 55
[2024-09-26] MEDS: MELATONIN 3 MG TABLET PO (21:56)
[2024-09-26 22:00] VITALS: PULSE 55; RESP 16; O2SAT 95
[2024-09-27 06:19] VITALS: BP 134/56; PULSE 60
[2024-09-27 06:56] VITALS: PULSE 60; RESP 16; O2SAT 95
[2024-09-27 07:57] VITALS: BP 135/74; PULSE 65; RESP 16; TEMP 36.7; O2SAT 93
[2024-09-27] MEDS: Cholecalciferol (VIT D3) 25 MCG TABLET (1,000 UNITS) 50 MCG PO (08:05)
[2024-09-27] MEDS: Senna/Docusate Sodium 1 Tablet 2 TABLET PO ×2 (08:05→20:28)
[2024-09-27] MEDS: Aspirin E.C. 81 MG Tablet PO ×2 (08:05→16:55)
[2024-09-27] MEDS: HYDROcodone Bitartrate/Apap 5/325 Tablet PO (13:05)
[2024-09-27 14:20] VITALS: BP 112/59; PULSE 56
[2024-09-27 14:21] VITALS: PULSE 56
[2024-09-27 20:29] VITALS: BP 128/65; PULSE 64
[2024-09-27] MEDS: MELATONIN 3 MG TABLET PO (20:29)
[2024-09-28 06:02] VITALS: BP 119/63; PULSE 61
[2024-09-28] MEDS: Aspirin E.C. 81 MG Tablet PO ×2 (09:36→16:50)
[2024-09-28] MEDS: Cholecalciferol (VIT D3) 25 MCG TABLET (1,000 UNITS) 50 MCG PO (09:36)
[2024-09-28 12:56] VITALS: BMI 26.3
--- NOTE | 2024-09-28 13:30 | CASEMGMT ---
Social Work SW completed BIMS () and PHQ-2 () for MDS assessment. Winnie Gupta FAGOT HEATER HELPER TREE SAPPER
[2024-09-28 14:46] VITALS: BP 114/55; PULSE 60
[2024-09-28] MEDS: Senna/Docusate Sodium 1 Tablet 2 TABLET PO (21:31)
[2024-09-28 21:32] VITALS: BP 120/66; PULSE 56
[2024-09-28] MEDS: MELATONIN 3 MG TABLET PO (21:32)
[2024-09-28 21:35] VITALS: PULSE 56; RESP 16; O2SAT 94
[2024-09-28 21:44] VITALS: BP 120/66; PULSE 56
[2024-09-29] VITALS (7 sets, daily range): BP systolic 100–131; BP diastolic 59–75; PULSE 55–64; RESP 16; TEMP 36.7; O2SAT 91–94
[2024-09-29 05:46] LABS: Hematocrit 32.1 % (37-47); Hemoglobin 10.2 g/dL (12.0-15.0); Immature Granulocytes Count 0.090 X10^3/uL (0.0-0.0); Mean Corp Hgb Conc 31.8 g/dL (32-36); Mean Corpuscular Volume 91.7 fL (81-99); Mean Platelet Vol. 9.4 fl (6.2-12.0); NRBC Flagged by Analyzer 0 % (0-5); Platelet Count 388 K/mm3 (150-450); RBC Distribution Width CV 14.2 % (11.6-14.6); RBC Distribution Width SD 46.1 fl (35.1-43.9); Red Blood Count 3.50 M/mm3 (4.2-5.4); White Blood Count 11.3 K/mm3 (4.4-11.0)
[2024-09-29 06:30] LABS: Anion Gap 11 (5-15); BUN 31 mg/dL (4-19); BUN/Creat Ratio 42.6 RATIO (10-20); Calcium,Total 9.3 mg/dL (7.6-11.0); Carbon Dioxide 27.2 mmol/L (21.0-32.0); Chloride 100 mmol/L (98-108); Estimated Creatinine Clearance 50.41 ml/min (50-250); Glucose 103 mg/dL (70-99); Potassium 4.3 mmol/L (3.3-5.1)
[2024-09-29] MEDS: Aspirin E.C. 81 MG Tablet PO ×2 (08:07→16:45)
[2024-09-29] MEDS: Cholecalciferol (VIT D3) 25 MCG TABLET (1,000 UNITS) 50 MCG PO (08:08)
--- NOTE | 2024-09-29 08:29 | NURSING ---
Bread Packer Note; MDS for 09/28/2024 Complete
--- NOTE | 2024-09-29 10:36 | CASEMGMT ---
Social Work IDT met with patient and for care plan meeting. Discussed patient's progress in PT/OT/ST/SN/RDN. Educated to [facility] insurance with [employer] 09/27 and continued stay is not guaranteed with each review. Provided pt/family with written communication of insurance process and copay coverage during stay. is scheduled for therapy training this week to determine if he can provide assistance to pt. states he is familiar with the process. IDT recommending 24/ care for cognition. SW provided resources for [facility] and nonskilled PHARMACIST ASSISTANT. expressed no concerns with DC home. SW will continue to follow for DC planning. Winnie Gupta FILM PROCESSING SHIFT SUPERVISOR OIL REFINERY OPERATOR
[2024-09-29] MEDS: Tuberculin,Purif.prot.deriv. 50 TU/ML Vial 0.1 ML ID (12:05)
[2024-09-29] MEDS: MELATONIN 3 MG TABLET PO (20:57)
[2024-09-29] MEDS: HYDROcodone Bitartrate/Apap 5/325 Tablet PO (21:03)
[2024-09-30 05:42] VITALS: BP 121/59; PULSE 57
[2024-09-30 05:44] VITALS: BP 121/59; PULSE 57
[2024-09-30] MEDS: Cholecalciferol (VIT D3) 25 MCG TABLET (1,000 UNITS) 50 MCG PO (08:40)
[2024-09-30] MEDS: Aspirin E.C. 81 MG Tablet PO ×2 (08:40→17:36)
[2024-09-30 11:05] VITALS: BP 128/68; PULSE 94; RESP 18; TEMP 36.7; O2SAT 91
[2024-09-30 13:27] VITALS: BP 104/47; PULSE 58
[2024-09-30] MEDS: HYDROcodone Bitartrate/Apap 5/325 Tablet PO (15:18)
--- NOTE | 2024-09-30 15:31 | NURSING ---
Addendum entered by Kendy Leigh 09/30/24 17:35: Returned from appointment with no new orders. follow up scheduled 10-28-24 at 3 pm. would like [facility] to transport. Original Note: pt off unit with [facility] transport for appointment. will meet her there.
[2024-09-30 21:00] VITALS: PULSE 61; RESP 18; O2SAT 93
[2024-09-30 21:03] VITALS: BP 104/57; PULSE 60
[2024-09-30] MEDS: Senna/Docusate Sodium 1 Tablet 2 TABLET PO (21:03)
[2024-09-30] MEDS: MELATONIN 3 MG TABLET PO (21:04)
[2024-10-01 05:31] VITALS: BP 114/60; PULSE 61
[2024-10-01 05:34] VITALS: PULSE 62; RESP 16; O2SAT 95
[2024-10-01] MEDS: Cholecalciferol (VIT D3) 25 MCG TABLET (1,000 UNITS) 50 MCG PO (08:52)
[2024-10-01] MEDS: Aspirin E.C. 81 MG Tablet PO ×2 (08:52→17:05)
[2024-10-01] MEDS: Senna/Docusate Sodium 1 Tablet 2 TABLET PO ×2 (08:53→21:41)
[2024-10-01 14:04] VITALS: PULSE 74
[2024-10-01] MEDS: HYDROcodone Bitartrate/Apap 5/325 Tablet PO (14:04)
[2024-10-01 16:00] VITALS: BP 122/68; PULSE 77; RESP 18; TEMP 36.6; O2SAT 91
[2024-10-01 21:41] VITALS: BP 134/60; PULSE 61
[2024-10-01] MEDS: MELATONIN 3 MG TABLET PO (21:41)
[2024-10-02] VITALS (7 sets, daily range): BP systolic 86–118; BP diastolic 43–65; PULSE 56–60; RESP 17–18; TEMP 36.4; O2SAT 95
[2024-10-02] MEDS: Cholecalciferol (VIT D3) 25 MCG TABLET (1,000 UNITS) 50 MCG PO (09:20)
[2024-10-02] MEDS: Senna/Docusate Sodium 1 Tablet 2 TABLET PO ×2 (09:20→21:36)
[2024-10-02] MEDS: Aspirin E.C. 81 MG Tablet PO ×2 (09:21→18:00)
[2024-10-02] MEDS: HYDROcodone Bitartrate/Apap 5/325 Tablet PO (09:25)
[2024-10-02] MEDS: MELATONIN 3 MG TABLET PO (21:36)
[2024-10-03 03:08] VITALS: PULSE 60; RESP 16; O2SAT 96
[2024-10-03 05:31] VITALS: BP 134/69; PULSE 67
[2024-10-03 09:07] VITALS: BP 110/59; PULSE 56; RESP 16; TEMP 36.6; O2SAT 93
[2024-10-03] MEDS: Aspirin E.C. 81 MG Tablet PO ×2 (09:13→17:07)
[2024-10-03] MEDS: Senna/Docusate Sodium 1 Tablet 2 TABLET PO ×2 (09:13→21:12)
[2024-10-03] MEDS: Cholecalciferol (VIT D3) 25 MCG TABLET (1,000 UNITS) 50 MCG PO (09:13)
[2024-10-03 13:45] VITALS: BP 103/57; PULSE 57
[2024-10-03 13:46] VITALS: BP 103/57; PULSE 57
[2024-10-03 21:12] VITALS: BP 109/64; PULSE 60
[2024-10-03] MEDS: MELATONIN 3 MG TABLET PO (21:12)
[2024-10-04 05:36] VITALS: BP 125/63; PULSE 58
--- NOTE | 2024-10-04 08:49 | NURSING ---
Offered covid vaccine, VIS provided. Resident declines.
[2024-10-04 09:08] VITALS: BP 132/70; PULSE 76; RESP 16; TEMP 36.6; O2SAT 93
[2024-10-04] MEDS: Aspirin E.C. 81 MG Tablet PO ×2 (09:09→16:58)
[2024-10-04] MEDS: Cholecalciferol (VIT D3) 25 MCG TABLET (1,000 UNITS) 50 MCG PO (09:09)
[2024-10-04 09:17] VITALS: PULSE 76; RESP 16; O2SAT 93
--- NOTE | 2024-10-04 09:17 | MDS.RN ---
Information for the MDS was obtained from review of the clinical record, interview of resident, staff, and direct observation of resident?s care.
[2024-10-04] MEDS: Pneumococcal Vaccine 20 Valent 0.5 ML Syringe IM (13:41)
[2024-10-04 16:59] VITALS: BP 113/65; PULSE 57
[2024-10-04] MEDS: MELATONIN 3 MG TABLET PO (20:33)
--- NOTE | 2024-10-04 20:36 | NURSING ---
Pt requested HS medications to be administered at 2034. Administered medications at this time per pt request.
[2024-10-05 08:13] VITALS: BP 150/72; PULSE 60; RESP 16; TEMP 36.7; O2SAT 91
[2024-10-05] MEDS: Cholecalciferol (VIT D3) 25 MCG TABLET (1,000 UNITS) 50 MCG PO (08:20)
[2024-10-05] MEDS: Aspirin E.C. 81 MG Tablet PO ×2 (08:20→17:31)
[2024-10-05 14:00] VITALS: BMI 26.4
--- NOTE | 2024-10-05 15:17 | CASEMGMT ---
Addendum entered by Winnie Gupta 10/05/24 15:39: Received return call from . Informed of DC date and educated to appeal rights. voiced uncertainty with DC plan. SW reviewed options: home with skilled and nonskilled HHC, [place]; [place] with skilled HHC; SNF with part B therapies. Educated to OOP costs and therapy insurance coverage. denied appeal, but will be visiting with pt this evening and will discuss options. SW requested contact this worker tomorrow with decisions. SW offered ongoing assistance. appreciative. Plan: DC 10/08, TBD Original Note: Social Work Insurance issued LCD 10/07, DC 10/08 SW left VM with to discuss DC. SW spoke with pt at bedside. Notified of DC date. Pt unsure of readiness to DC. SW noted she phoned her to discuss further. Provided pt with [facility] and explained appeal rights. SW will await to hear back from to plan DC. IDT has concerns with 's lifestyle being accommodating to pt's need for 16/09. Winnie Gupta MEDICAL OFFICE ASSISTANT INSTRUCTOR DIAGRAM CLERK
--- NOTE | 2024-10-05 16:05 | CASEMGMT ---
Social Work SW completed advance directives with pt. Original and copies provided to pt. Copy placed on chart. Winnie Gupta WARPER CREELER DEDICATED LOCAL TRUCK DRIVER
[2024-10-05 17:35] VITALS: BP 125/69; PULSE 55
[2024-10-05 20:10] VITALS: PULSE 64; RESP 18; O2SAT 95
[2024-10-05] MEDS: MELATONIN 3 MG TABLET PO (21:38)
[2024-10-06 05:23] VITALS: PULSE 60; RESP 16; O2SAT 94
[2024-10-06 05:46] LABS: Hematocrit 31.3 % (37-47); Hemoglobin 10.1 g/dL (12.0-15.0); Immature Granulocytes Count 0.020 X10^3/uL (0.0-0.0); Mean Corp Hgb Conc 32.3 g/dL (32-36); Mean Corpuscular Volume 90.7 fL (81-99); Mean Platelet Vol. 9.2 fl (6.2-12.0); NRBC Flagged by Analyzer 0 % (0-5); Platelet Count 335 K/mm3 (150-450); RBC Distribution Width CV 14.0 % (11.6-14.6); RBC Distribution Width SD 46.3 fl (35.1-43.9); Red Blood Count 3.45 M/mm3 (4.2-5.4); White Blood Count 6.4 K/mm3 (4.4-11.0)
[2024-10-06 06:19] LABS: Anion Gap 9 (5-15); BUN 18 mg/dL (4-19); BUN/Creat Ratio 24.3 RATIO (10-20); Calcium,Total 9.3 mg/dL (7.6-11.0); Carbon Dioxide 29.0 mmol/L (21.0-32.0); Chloride 101 mmol/L (98-108); Estimated Creatinine Clearance 50.46 ml/min (50-250); Glucose 97 mg/dL (70-99); Potassium 4.1 mmol/L (3.3-5.1)
[2024-10-06] MEDS: Aspirin E.C. 81 MG Tablet PO ×2 (08:21→16:51)
[2024-10-06] MEDS: Cholecalciferol (VIT D3) 25 MCG TABLET (1,000 UNITS) 50 MCG PO (08:22)
[2024-10-06 08:26] VITALS: BP 127/62; PULSE 67; RESP 15; TEMP 37.1; O2SAT 92
--- NOTE | 2024-10-06 16:17 | CASEMGMT ---
Social Work SW received call from stating he and pt agree pt will DC home. They will try it at home first. SW reminded of [facility] and hiring private duty aides. Resources already provided. SW offered list of skilled HHC agencies within geographical area, [place] with insurance, that include quality and resource data via [employer] guide. agreed and will be in to visit pt this evening, and for SW to leave list in pt's room. SW agreed and completed. requesting [facility] to transport pt home. SW to coordinate and update if there is availability. appreciative. SW phoned [facility] and they are unsure of openings, but for SW to call back tomorrow at noon for final answer. SW to complete. Plan: DC home with 10/08, HHC PT/OT/ST/SN/MARLINE Gupta CARD LACER JACQUARD SUPPLY CHAIN BUSINESS ANALYST
--- NOTE | 2024-10-06 19:28 | DS.PCM_ITS ---
Providers Date of Admission: 09/21/24 Primary Care Physician: MILY HERCULES Reason For Visit: FALL LEFT HIP FRACTURE Diagnosis Discharge Diagnosis (1) Debility: Status: Acute Code(s): R53.81 - Other malaise (2) Closed intertrochanteric fracture of left hip: Status: Inactive Code(s): S72.142A - Displaced intertrochanteric fracture of left femur, initial encounter for closed fracture Qualifiers: Encounter type: initial encounter Fracture alignment: displaced Q ualified Code(s): S72.142A - Displaced intertrochanteric fracture of left femur, initial encounter for closed fracture (3) Postoperative anemia: Status: Acute Code(s): D64.9 - Anemia, unspecified (4) Acute kidney injury: Status: Acute Code(s): N17.9 - Acute kidney failure, unspecified (5) Essential (primary) hypertension: Status: Acute Code(s): I10 - Essential (primary) hypertension (6) Osteoarthritis: Status: Acute Code(s): M19.90 - Unspecified osteoarthritis, unspecified site (7) Depression: Status: Acute Code(s): F32.A - Depression, unspecified (8) HLD (hyperlipidemia): Status: Chronic Code(s): E78.5 - Hyperlipidemia, unspecified (9) Insomnia: Status: Acute Code(s): G47.00 - Insomnia, unspecified (10) Vitamin D deficiency: Status: Acute Code(s): E55.9 - Vitamin D deficiency, unspecified (11) GERD (gastroesophageal reflux disease): Status: Chronic Code(s): K21.9 - Gastro-esophageal reflux disease without esophagitis Plan 79 year old female with below past medical history hospitalized for left hip fracture, underwent left hip orif, short intramedullary gamm nail 09/17/[address] Jose Maria Best, postoperative course complicated by acute kidney injury, anemia requiring transfusion, admitted to TCU with debility, here for rehabilitation, strengthening, prior to discharge home with . * Debility - PT/OT. * Pain - [place] 5/325mg 1 tablet q6 prn pain (6-10). * Bowel - senna/colace 2 tablets bid, Magnesium citrate 300mL daily prn. * Adult immunization - Administer pneumonia vaccine, covid vaccine, flu vaccine as appropriate. * DVT prophylaxis - Aspirin 81mg bid thru 10/18/2024. * Hypertension - Coreg 3.125mg daily, Lisinopril 40mg daily, HCTZ 50mg daily, Amlodipine 10mg daily. * Vitamin C deficiency - Vitamin C 500mg daily. * Hyperlipidemia - Atorvastatin 10mg qhs. * Vitamin D deficiency - D3 50mcg daily. * Osteoarthritis - Meloxicam 15mg daily. * Skin irritation - Calmoseptine topical bid. * GERD - Pantoprazole 40mg daily. * Fatty Liver - Vitamin E 400iu daily. The following psychotropic medication was present on admission: Paroxetine 20mg daily. Psychotropic medication therapy is indicated for a diagnosis of: Depression. Based on my clinical evaluation, continuation of the medication is necessary at this time. Gradual dose reduction plan (select one): ____ GDR will be attempted. Will monitor patient symptoms and behaviors in response to GDR. __x__ GRD contraindicated. Reason contraindicated: stable chronic residential use. The following psychotropic medication was present on admission: Trazodone 100mg qhs. Psychotropic medication therapy is indicated for a diagnosis of: Insomnia. Based on my clinical evaluation, continuation of the medication is necessary at this time. Gradual dose reduction plan (select one): ____ GDR will be attempted. Will monitor patient symptoms and behaviors in response to GDR. __x_ GRD contraindicated. Reason contraindicated: stable chronic residential use. Medications at Discharge Home Medications amlodipine 10 mg tablet 10 mg PO DAILY BP 10/30/16 hydrochlorothiazide 25 mg tablet 50 mg PO DAILY BP 10/30/16 lisinopril 20 mg tablet 40 mg PO DAILY BP 10/30/16 meloxicam 15 mg tablet 15 mg PO DAILY knee, neck, and shoulder pain 10/30/16 paroxetine HCl 20 mg tablet 20 mg PO DAILY depression 10/30/16 simvastatin 20 mg tablet 20 mg PO DAILY cholesterol 10/30/16 trazodone 50 mg tablet 100 mg PO QHS sleep 10/30/16 Vitamin E (Dl,Tocopheryl Acet) [Vitamin E] 400 unit PO DAILY supplement 12/05/19 ascorbic acid (vitamin C) 500 mg tablet 500 mg PO DAILY@0800 supplement 12/05/19 cholecalciferol (vitamin D3) 50 mcg (2,000 unit) capsule 50 mcg PO DAILY supplement 12/05/19 omeprazole 40 mg capsule,delayed release 40 mg PO DAILY GERD 12/05/19 carvedilol 3.125 mg tablet 3.125 mg PO DAILY BP 09/16/24 hydrocodone-acetaminophen 5-325mg 5mg-325mg 1 tab PO Q6H PRN PRN Pain Score 6-10 3 days #12 tabs 09/21/24 acetaminophen 500 mg tablet 1,000 mg (2 x 500 mg) PO Q8 #0 tabs 10/06/24 aspirin 81 mg tablet,delayed release 81 mg PO BIDCM 10 days #0 tabs 10/06/24 melatonin 3 mg tablet 3 mg PO QHS #0 tabs 10/06/24 Hospital Course Operations - (See below.) Procedures None Summary of Care Provided Minutes Spent on Discharge: 35 Hospital Course: 79 year old female with below past medical history hospitalized for left hip fracture, underwent left hip orif, short intramedullary gamm nail 09/17/[address] Jose Maria Best, postoperative course complicated by acute kidney injury, anemia requiring transfusion, admitted to TCU with debility, here for rehabilitation, strengthening, prior to discharge home with . Discharge home with 10/08/2024, [facility] PT/OT/ST/SN/SW. Physical Exam Const alert General Appearance: cooperative HEENT normocephalic Eyes PERRL and EOMs intact bilaterally Neck supple, no JVD and no carotid bruits Resp normal respiratory effort, normal air movement and clear to auscultation bilaterally Cardio regular rate and regular rhythm GI normal to inspection, nondistended, normoactive bowel sounds, non-tender and non-distended Extremity normal capillary refill General Extremity: Negative for edema Skin no rashes or lesions noted General Skin Exam: no breakdown Psych affect normal Appearance: appropriate Weight / BMI Weight Weight: 65 kg Body Mass Index (BMI) 26.4 ABG / Lab / Microbiology Data 10/06/24 05:36 10/06/24 05:36 Laboratory: Laboratory Results - last 24 hr 10/06/24 05:36: WBC 6.4, RBC 3.45 L, Hgb 10.1 L, Hct 31.3 L, MCV 90.7, MCH 29.3, MCHC 32.3, RDW Std Deviation 46.3 H, RDW Coeff of Natalie 14.0, Plt Count 335, MPV 9.2, Immature Gran % (Auto) 0.300, Neut % (Auto) 66.1, Lymph % (Auto) 19.7, [place] % (Auto) 7.7, Eos % (Auto) 5.7 H, Baso % (Auto) 0.5, Absolute Neuts (auto) 4.2, Absolute Lymphs (auto) 1.25, Nucleated RBC % 0, Sodium 139, Potassium 4.1, Chloride 101, Carbon Dioxide 29.0, Anion Gap 9, BUN 18, Creatinine 0.76, Estim Creat Clear Calc 50.46, Est GFR (MDRD) Non-Af 80, BUN/Creatinine Ratio 24.3 H, Glucose 97, Calcium 9.3 D/C Instructions Discharge Activity: Return to Normal Activity, May Shower and Use Walker Weight Bearing Status: Weight bearing as tolerated Call your doctor if you observe: Fever of 101 or Higher, Inability to urinate, Inability to have a bowel movement, Shortness of breath, Dizziness, Fainting spells, Swelling in the ankles, Chest pain and Uncontrolled pain DC O2, CPAP, BIPAP Needs Home O2 Discharge instructions: No Additional Instructions: Discharge home with 10/08/2024, [facility] PT/OT/ST/SN/SW. Please Follow Up With: Jose Maria Best MD When: As scheduled. Meaningful Use Info Meaningful Use Meaningful Use Diagnoses (Choose all that apply): None applicable Discharge Plan Admission Admit Date/Time: 09/21/24 15:09 Primary Reason for Your Visit: Debility. Attending Provider: Davion Villa Chi Primary Care Provider: MILY HERCULES Instructions Additional Instructions / Restrictions: Discharge home with 10/08/2024, [facility] PT/OT/ST/SN/SW. Discharge Orders/Prescriptions Prescriptions: New melatonin 3 mg Tablet 3 mg PO QHS Qty: 0 0RF aspirin 81 mg Tablet,Delayed Release (Dr/Ec) 81 mg PO BIDCM 10 Days Qty: 0 0RF acetaminophen 500 mg Tablet 1,000 mg PO Q8 Qty: 0 0RF Continued trazodone 50 MG tablet 100 mg PO QHS Patient Comments: meloxicam 15 MG tablet 15 mg PO DAILY Patient Comments: lisinopril 20 MG tablet 40 mg PO DAILY Patient Comments: amlodipine 10 MG tablet 10 mg PO DAILY Patient Comments: paroxetine HCl 20 MG tablet 20 mg PO DAILY Patient Comments: simvastatin 20 MG tablet 20 mg PO DAILY Patient Comments: hydrochlorothiazide 25 MG tablet 50 mg PO DAILY Patient Comments: omeprazole 40 MG capsule,delayed release(DR/EC) 40 mg PO DAILY ascorbic acid (vitamin C) 500 MG tablet 500 mg PO DAILY@0800 cholecalciferol (vitamin D3) 50 MCG capsule 50 mcg PO DAILY Vitamin E (Dl,Tocopheryl Acet) [Vitamin E] 400 UNIT capsule 400 unit PO DAILY carvedilol 3.125 mg tablet 3.125 mg PO DAILY hydrocodone-acetaminophen 5-325 mg Tablet 1 tab PO Q6H PRN PRN (Reason: Pain Score 6-10) 3 Days Qty: 12 0RF Discontinued beta carotene 10,000 UNIT capsule 10,000 unit PO DAILY aspirin 81 mg Tablet,Delayed Release (Dr/Ec) 81 mg PO BIDCM Qty: 60 0RF Referrals / Follow Up: MILY HERCULES [Other] Disposition Disposition (needs filled in before D/C Order can be placed): Home Health Service
[2024-10-06] MEDS: MELATONIN 3 MG TABLET PO (21:47)
[2024-10-07 09:35] VITALS: BP 118/65; PULSE 67; RESP 17; TEMP 36.8; O2SAT 93
[2024-10-07] MEDS: Aspirin E.C. 81 MG Tablet PO ×2 (09:41→16:46)
[2024-10-07] MEDS: Cholecalciferol (VIT D3) 25 MCG TABLET (1,000 UNITS) 50 MCG PO (09:42)
--- NOTE | 2024-10-07 11:53 | CASEMGMT ---
Discharge Planning HH referral sent to [facility]. Edna Andrade DC Planning Asst.
--- NOTE | 2024-10-07 11:53 | CASEMGMT ---
Social Work MARLINE phoned to follow up on HHC choices and transport information. has not chosen an agency yet. MARLINE updated that Nancy requested this worker return call at noon this date to determine if their schedule can accomodate DC. MARLINE will notify of outcome. MARLINE suggested that when this worker calls with transport information, can review provided HHC list and have a preference. agreed. - SW received call from pt stating she spoke with her and has chosen [facility]. MARLINE to place referral and notify pt if they cannot accept. MARLINE educated HHC agency will contact pt/ for SOC date date, but typically 2-3 days after DC, pending PCP signing orders. Pt expressed understanding. - DC wedding planner is placing HHC referral via [facility] for PT/OT/ST/SN/MARLINE - MARLINE phoned [facility] to inquire about DC transport availability for pt. [facility] is unable to transport. MARLINE phoned to notify and offered to schedule w/c transport through [facility]. denied transport and agreed to transport pt via car. Winnie Gupta MEDICINE AND HEALTH SERVICE MANAGER CAMPUS COORDINATOR
--- NOTE | 2024-10-07 16:01 | CASEMGMT ---
Social Work SW completed BIMS () and PHQ-2 () for MDS assessment. Winnie Gupta SECURITY SPECIALIST ENGRAVER COPPERPLATE
[2024-10-07] MEDS: MELATONIN 3 MG TABLET PO (20:08)
[2024-10-07 20:25] VITALS: PULSE 63; RESP 17; O2SAT 94
[2024-10-08 06:14] VITALS: PULSE 65; RESP 16; O2SAT 95
[2024-10-08 09:00] VITALS: BP 118/64; PULSE 69; RESP 17; TEMP 36.4; O2SAT 91
[2024-10-08] MEDS: Aspirin E.C. 81 MG Tablet PO (09:04)
[2024-10-08] MEDS: Senna/Docusate Sodium 1 Tablet 2 TABLET PO (09:05)
[2024-10-08] MEDS: Cholecalciferol (VIT D3) 25 MCG TABLET (1,000 UNITS) 50 MCG PO (09:05)
[2024-10-08 11:18] VITALS: BP 134/75; PULSE 61; RESP 16; TEMP 36.8; O2SAT 92
== END 2024-10-08 11:40 | disposition home health service (06) | DRG 561 ==
PROVIDERS: Admitting Provider Family Medicine Geriatric Medicine; Referring Provider Family Medicine Geriatric Medicine; Visit Provider Family Medicine Geriatric Medicine
DX: S72.142D Displaced intertrochanteric fracture of left femur, subsequent encounter for closed fracture with routine healing (principal); E55.9 Vitamin D deficiency, unspecified; I12.9 Hypertensive chronic kidney disease with stage 1 through stage 4 chronic kidney disease, or unspecified chronic kidney disease; F32.A Depression, unspecified; K76.0 Fatty (change of) liver, not elsewhere classified; N18.2 Chronic kidney disease, stage 2 (mild); K21.9 Gastro-esophageal reflux disease without esophagitis; E78.00 Pure hypercholesterolemia, unspecified; M19.90 Unspecified osteoarthritis, unspecified site; W19.XXXD Unspecified fall, subsequent encounter; Z79.899 Other long term (current) drug therapy; Z79.82 Long term (current) use of aspirin; G47.00 Insomnia, unspecified; Z23 Encounter for immunization
CPT/HCPCS: 36415; 80048; 80061; 85025; 90677; 92507; 92523; 97110; 97116; 97162; 97166; 97530; 97535; 97802; G0009; A4216